=== PATIENT | male | born 1950 | race Caucasian/White ===

== ENCOUNTER → 2016-11-16 | Outpatient (CLI) | payer OTHER, BC ==
[~2016-11-16] MED LIST: ACET-1175 PO; ASPI81TA21 PO; BENZ0.5T9 PO; CALCTAB7 PO; CGN5 PO; CLOTLOT2 TOP; CLOZ100T18 PO; CYAN10005 PO; DIVA1TAB86 PO; DIVA250T4 PO; FINA5TAB4 PO; FNTTP25 EXT; HYDR-3983 PO; MAGNSUS5 PO; METHPOW7 PO; MOME1AER4 INH; MOME1AER5 INH; MOML PO; MRLP17X PO; OXGN; POLY335040 PO; RANI1TAB75 PO; RANI75TA7 PO; TPRSR/50 PO; VLTG EXT; [UNRECOGNIZED DRUG - CODE] PO
[2016-11-16 17:51] LABS: HEMATOCRIT 30.4 % (42-52); MEAN CELL VOLUME 92.1 fL (80-100); MEAN CORPUSCULAR HEMOGLOBIN 29.1 pg (25-34); MEAN CORPUSCULAR HGB CONC 31.6 g/dl (32-36); MEAN PLATELET VOLUME 10.2 fL (7.4-10.4); PLATELET COUNT 200 K/uL (130-400); WHITE BLOOD COUNT 8.34 K/uL (4.8-10.8)
[2016-11-16 18:11] LABS: BLOOD UREA NITROGEN 27 mg/dl (7-18); BUN/CREATININE RATIO 24.5 (10-20); CALCIUM 9.4 mg/dl (8.5-10.1); CARBON DIOXIDE 24 mmol/L (21-32); CHLORIDE 100 mmol/L (98-107); GLUCOSE 97 mg/dl (70-99); POTASSIUM 4.5 mmol/L (3.5-5.1); SODIUM 134 mmol/L (136-145)
[2016-11-16 18:16] LABS: FERRITIN 67.7 ng/ml (8.0-388.0); PHOSPHORUS 2.9 mg/dl (2.5-4.9); TOTAL IRON BINDING CAPACITY 327 mcg/dl (250-450)
== END | disposition home or self-care (01) ==
LOC: C.LABBFT 12:17
PROVIDERS: ATTEND Internal Medicine Nephrology
DX: G40.909 Epilepsy, unspecified, not intractable, without status epilepticus (principal); E87.1 Hypo-osmolality and hyponatremia; D64.9 Anemia, unspecified; N17.9 Acute kidney failure, unspecified

== ENCOUNTER → 2016-11-18 | Outpatient (CLI) | payer OTHER, BC ==
[2016-11-19 12:53] LABS: URINE APPEARANCE CLEAR (CLEAR); URINE BILIRUBIN NEG (NEG); URINE COLOR YELLOW; URINE NITRITE NEG (NEG); URINE SPECIFIC GRAVITY 1.017 (1.000-1.030); UROBILINOGEN NEG (NEG)
[2016-11-19 13:06] LABS: MANUAL MICROSCOPIC REQUIRED? NO; REVIEW REQ? NO
== END | disposition home or self-care (01) ==
LOC: C.LABSPEC 12:17
PROVIDERS: ATTEND Internal Medicine Nephrology
DX: D64.9 Anemia, unspecified (principal); N17.9 Acute kidney failure, unspecified; E87.1 Hypo-osmolality and hyponatremia

== ENCOUNTER → 2016-12-28 | Outpatient (CLI) | payer OTHER, BC ==
--- NOTE | 2016-12-28 17:18 | DIAGNOSTIC IMAGING REPORT ---
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 The appearance appears similar to the prior study. No additional femoral abnormalities are evident. IMPRESSION: Severe deformity left hip characterized by femoral head flattening, severe arthritis, and a protrusio deformity. 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 The findings remain stable Electronically signed by: Drew Marie M.D. 12/28/2016 5:16 PM Dictated Date/Time: 12/28/2016 5:14 PM
--- NOTE | 2016-12-28 17:30 | DIAGNOSTIC IMAGING REPORT ---
AP PELVIS AND BILATERAL HIPS 5 VIEWS CLINICAL HISTORY: Bilateral hip pain COMPARISON STUDY: 02/04/2016 FINDINGS: There is advanced deformity of both hips. 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 There is superior lateral subluxation the right hip. Both femoral heads are markedly deformed and flattened. There is extensive bony overgrowth. The findings remain similar to the preceding study. The findings may be secondary to either prior avascular necrosis, or prior hip dysplasia with secondary arthritic change. No acute fractures are evident. IMPRESSION: No significant change from the prior study. No acute fractures. Advanced degenerative changes involving both hips with marked femoral head flattening, advanced protrusio deformities, and bony overgrowth. Electronically signed by: Drew Marie M.D. 12/28/2016 5:28 PM Dictated Date/Time: 12/28/2016 5:26 PM
== END | disposition home or self-care (01) ==
LOC: C.RAD1850 16:45
PROVIDERS: ATTEND Nurse Practitioner
DX: M25.559 Pain in unspecified hip (principal); M87.00 Idiopathic aseptic necrosis of unspecified bone

== ENCOUNTER 2017-01-12 08:44 | Emergency (ER) | payer OTHER, BC ==
[~2017-01-12] VITALS: Ht 174 cm; Wt 75.8 kg
[~2017-01-12 08:44] MED LIST changes: -CGN5 PO; -FNTTP25 EXT; -MOME1AER5 INH; -MOML PO; -MRLP17X PO; -RANI1TAB75 PO; -VLTG EXT
[2017-01-12 08:52] VITALS: TEMP 36.7; Ht 174 cm; Wt 75.8 kg
[2017-01-12] MEDS ORDERED: SODIUM CHLORIDE 0.9% 1000ML 500 ML IV STA (09:00)
[2017-01-12 09:27] VITALS: O2SAT 93
[2017-01-12] MEDS ORDERED: RANI1TAB75 PO (09:46)
[2017-01-12] MEDS ORDERED: MOME1AER5 INH (09:48)
[2017-01-12] MEDS ORDERED: CGN5 PO (09:49)
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
[2017-01-12] MEDS ORDERED: MOML PO (09:51)
[2017-01-12 09:53] LABS: BASO % 0.2 %; BASO ABS # 0.02 K/uL (0-0.2); COMPLETE YES; EOS % 2.1 %; HEMATOCRIT 34.6 % (42-52); IG% 1.3 %; LYMPH ABS # 0.91 K/uL (1.2-3.4); MEAN CELL VOLUME 88.7 fL (80-100); MEAN CORPUSCULAR HEMOGLOBIN 28.7 pg (25-34); MEAN CORPUSCULAR HGB CONC 32.4 g/dl (32-36); MEAN PLATELET VOLUME 9.4 fL (7.4-10.4); MONO % 11.6 %; NEUT % 73.8 %; PLATELET COUNT 237 K/uL (130-400); WHITE BLOOD COUNT 8.25 K/uL (4.8-10.8)
[2017-01-12] MEDS ORDERED: VLTG EXT (09:53)
[2017-01-12] MEDS ORDERED: MRLP17X PO (09:54)
[2017-01-12] MEDS ORDERED: FNTTP25 EXT (09:56)
[2017-01-12 10:10] LABS: ALT/SGPT 12 U/L (12-78); BLOOD UREA NITROGEN 11 mg/dl (7-18); CALCIUM 9.4 mg/dl (8.5-10.1); CARBON DIOXIDE 30 mmol/L (21-32); CHLORIDE 94 mmol/L (98-107); CREATININE 0.82 mg/dl (0.60-1.40); GLUCOSE 102 mg/dl (70-99); MAGNESIUM 1.8 mg/dl (1.8-2.4); POTASSIUM 4.4 mmol/L (3.5-5.1); SODIUM 131 mmol/L (136-145)
--- NOTE | 2017-01-12 10:11 | DIAGNOSTIC IMAGING REPORT ---
CT SCAN OF THE BRAIN WITHOUT IV CONTRAST CLINICAL HISTORY: Weakness. Change in mental status. COMPARISON STUDY: CT of the brain dated 12/05/15. TECHNIQUE: Unenhanced axial CT scan of the brain is performed from the vertex to the skull base. CT DOSE: 1375.95 mGy.cm FINDINGS: Brain parenchyma: There are age-related involutional changes noting mild subcortical and periventricular microangiopathic change. There is no hemorrhage, mass effect, or evidence of acute territorial ischemia by CT criteria. [place]aza-white matter is preserved. No extra-axial fluid collection is seen. Ventricles, sulci, cisterns: Prominent secondary to involutional change. Intracranial vasculature: There is atherosclerotic calcification of the cavernous carotid and vertebral arteries. Calvarium: The calvarium appears intact. Postoperative change is noted anterior to the mandible. Sinuses and mastoids: The visualized paranasal sinuses are clear. There is a trace left mastoid effusion. The right mastoid air cells are well pneumatized. Orbits: The bony orbits are grossly intact. There are bilateral ocular lens implants. IMPRESSION: There is no hemorrhage, mass effect, or evidence of acute territorial ischemia by CT criteria. Electronically signed by: Faustino Smallwood M.D. 01/12/2017 10:10 AM Dictated Date/Time: 01/12/2017 10:07 AM
[2017-01-12 10:21] LABS: ALB/GLOB RATIO 0.7 (0.9-2); ALKALINE PHOSPHATASE 121 U/L (45-117); AST/SGOT 13 U/L (15-37)
[2017-01-12 11:04] LABS: INFLUENZA A PCR Neg for Influ A (NEG); INFLUENZA B PCR Neg for Influ B (NEG)
[2017-01-12 11:27] LABS: MANUAL MICROSCOPIC REQUIRED? NO; REVIEW REQ? NO; URINE APPEARANCE CLEAR (CLEAR); URINE BILIRUBIN NEG (NEG); URINE COLOR YELLOW; URINE NITRITE NEG (NEG); URINE SPECIFIC GRAVITY 1.008 (1.000-1.030); UROBILINOGEN NEG (NEG)
[2017-01-12 12:37] VITALS: BP 138/78; PULSE 78; O2SAT 98
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
== END 2017-01-12 12:39 | disposition home or self-care (01) ==
LOC: EDBD 08:44 → C.EDB 08:45
DX: R41.0 Disorientation, unspecified (principal); T40.4X5A Adverse effect of other synthetic narcotics, initial encounter; X58.XXXA Exposure to other specified factors, initial encounter; J45.909 Unspecified asthma, uncomplicated; E11.9 Type 2 diabetes mellitus without complications; I51.9 Heart disease, unspecified; E87.5 Hyperkalemia; E72.20 Disorder of urea cycle metabolism, unspecified; J43.9 Emphysema, unspecified; F20.9 Schizophrenia, unspecified; Z87.891 Personal history of nicotine dependence; Z79.82 Long term (current) use of aspirin; Z79.899 Other long term (current) drug therapy

== ENCOUNTER → 2017-03-25 | Outpatient (CLI) | payer OTHER, BC ==
[~2017-03-25] MED LIST changes: +BENZ0.5T28 PO; -BENZ0.5T9 PO; -CALCTAB7 PO; -MAGNSUS5 PO; -METHPOW7 PO; -MOME1AER4 INH; +MOME1AER5 INH; +MOML PO; +MRLP17X PO; -POLY335040 PO; +RANI1TAB75 PO; -RANI75TA7 PO; +VLTG EXT; -[UNRECOGNIZED DRUG - CODE] PO
[2017-03-25 11:57] LABS: BASO % 0.4 %; BASO ABS # 0.04 K/uL (0-0.2); COMPLETE YES; EOS % 1.4 %; HEMATOCRIT 31.3 % (42-52); IG% 1.3 %; LYMPH % 12.5 %; LYMPH ABS # 1.25 K/uL (1.2-3.4); MEAN CELL VOLUME 89.9 fL (80-100); MEAN CORPUSCULAR HEMOGLOBIN 28.7 pg (25-34); MEAN CORPUSCULAR HGB CONC 31.9 g/dl (32-36); MEAN PLATELET VOLUME 9.3 fL (7.4-10.4); NEUT % 74.4 %; PLATELET COUNT 272 K/uL (130-400); RED BLOOD COUNT 3.48 M/uL (4.7-6.1); WHITE BLOOD COUNT 9.98 K/uL (4.8-10.8)
[2017-03-25 12:10] LABS: CALCIUM 8.6 mg/dl (8.5-10.1)
[2017-03-25 12:12] LABS: ALT/SGPT 12 U/L (12-78); AST/SGOT 10 U/L (15-37); BLOOD UREA NITROGEN 23 mg/dl (7-18); BUN/CREATININE RATIO 28.3 (10-20); CARBON DIOXIDE 31 mmol/L (21-32); CHLORIDE 98 mmol/L (98-107); CREATININE 0.82 mg/dl (0.60-1.40); GLUCOSE 74 mg/dl (70-99); POTASSIUM 4.6 mmol/L (3.5-5.1); SODIUM 133 mmol/L (136-145)
[2017-03-25 12:22] LABS: ALB/GLOB RATIO 0.6 (0.9-2); ALKALINE PHOSPHATASE 86 U/L (45-117); PROSTATE SPECIFIC ANTIGEN 0.368 ng/ml (0.000-4.000)
--- NOTE | 2017-04-01 07:22 | CODING QUERY MEDICAL NECESSITY ---
CQSUPPORTING DIAGNOSIS NEEDED A supporting diagnosis is required for the test/procedure performed on this patient in order for us to be reimbursed by the patient's insurance. Please provide a supporting diagnosis for the following test/procedure listed below next to the test name along with your signature. *If there is no additional diagnosis for this patient that would support the following test/procedure please document that below next to the test/procedure. Test(s)/Procedure(s) that require a supporting diagnosis: DOS 03/25/17 VITAMIN D Provider Signature: Date: Thank you Jayde Cheung [employer] Once completed, please kindly fax back to [phone] For questions please call [phone]
== END | disposition home or self-care (01) ==
LOC: C.LABBFT 10:28
PROVIDERS: ATTEND Internal Medicine
DX: I10 Essential (primary) hypertension (principal); N40.0 Benign prostatic hyperplasia without lower urinary tract symptoms; R53.1 Weakness; G40.909 Epilepsy, unspecified, not intractable, without status epilepticus; E07.9 Disorder of thyroid, unspecified; E55.9 Vitamin D deficiency, unspecified

== ENCOUNTER → 2017-03-29 | Outpatient (CLI) | payer OTHER, BC ==
[2017-03-30 14:17] LABS: URINE APPEARANCE CLOUDY (CLEAR); URINE BILIRUBIN NEG (NEG); URINE COLOR YELLOW; URINE EPITHELIAL CELL AUTO >30 /lpf (0-5); URINE NITRITE NEG (NEG); URINE SPECIFIC GRAVITY 1.021 (1.000-1.030); UROBILINOGEN NEG (NEG); ZZUR CULT IF INDIC CLEAN CATCH YES
[2017-03-30 14:26] LABS: MANUAL MICROSCOPIC REQUIRED? NO; REVIEW REQ? NO
== END | disposition home or self-care (01) ==
LOC: C.LABSPEC 12:36
PROVIDERS: ATTEND Internal Medicine
DX: R30.0 Dysuria (principal)

== ENCOUNTER → 2017-04-05 | Outpatient (CLI) | payer OTHER, BC | END | disposition home or self-care (01) | LOC: C.LABBFT 11:08 | PROVIDERS: ATTEND Internal Medicine | DX: Z51.81 Encounter for therapeutic drug level monitoring (principal); Z79.899 Other long term (current) drug therapy ==

== ENCOUNTER → 2017-05-24 | Outpatient (CLI) | payer OTHER, BC ==
[~2017-05-24] MED LIST changes: -BENZ0.5T28 PO; +CGN5 PO
[2017-05-25 13:11] LABS: URINE APPEARANCE CLOUDY (CLEAR); URINE BILIRUBIN NEG (NEG); URINE COLOR YELLOW; URINE NITRITE NEG (NEG); URINE SPECIFIC GRAVITY 1.018 (1.000-1.030); UROBILINOGEN NEG (NEG); ZZUR CULT IF INDIC CLEAN CATCH YES
[2017-05-25 13:19] LABS: MANUAL MICROSCOPIC REQUIRED? NO; REVIEW REQ? NO
== END | disposition home or self-care (01) ==
LOC: C.LABSPEC 12:21
PROVIDERS: ATTEND Physician Assistant Medical
DX: R30.0 Dysuria (principal)

== ENCOUNTER → 2017-06-23 | Outpatient (CLI) | payer OTHER, BC | END | disposition home or self-care (01) | LOC: C.LABBFT 13:58 | PROVIDERS: ATTEND Nurse Practitioner Family | DX: R30.0 Dysuria (principal) ==

== ENCOUNTER → 2017-08-10 | Outpatient (CLI) | payer OTHER, BC ==
[2017-08-10 12:25] LABS: ALT/SGPT 11 U/L (12-78); AST/SGOT 11 U/L (15-37); BLOOD UREA NITROGEN 32 mg/dl (7-18); BUN/CREATININE RATIO 36.5 (10-20); CALCIUM 9.1 mg/dl (8.5-10.1); CARBON DIOXIDE 31 mmol/L (21-32); CHLORIDE 103 mmol/L (98-107); CREATININE 0.88 mg/dl (0.60-1.40); GLUCOSE 80 mg/dl (70-99); POTASSIUM 4.8 mmol/L (3.5-5.1); SODIUM 135 mmol/L (136-145)
[2017-08-10 12:27] LABS: ALB/GLOB RATIO 0.8 (0.9-2); ALKALINE PHOSPHATASE 83 U/L (45-117)
== END | disposition home or self-care (01) ==
LOC: C.LABBFT 10:25
PROVIDERS: ATTEND Physician Assistant
DX: R77.1 Abnormality of globulin (principal); E55.9 Vitamin D deficiency, unspecified

== ENCOUNTER → 2017-10-14 | Outpatient (CLI) | payer OTHER, BC ==
[~2017-10-14] MED LIST changes: +BENZ0.5T28 PO; -CGN5 PO
[2017-10-14 12:38] LABS: MANUAL MICROSCOPIC REQUIRED? NO; REVIEW REQ? NO; URINE APPEARANCE CLEAR (CLEAR); URINE BILIRUBIN NEG (NEG); URINE COLOR YELLOW; URINE NITRITE NEG (NEG); URINE SPECIFIC GRAVITY 1.019 (1.000-1.030); UROBILINOGEN NEG (NEG); ZZUR CULT IF INDIC CLEAN CATCH NO
== END | disposition home or self-care (01) ==
LOC: C.LABBFT 08:41
PROVIDERS: ATTEND Internal Medicine
DX: R35.0 Frequency of micturition (principal)

== ENCOUNTER → 2017-11-23 | Outpatient (CLI) | payer OTHER, BC | END | disposition home or self-care (01) | LOC: C.LABBFT 10:05 | PROVIDERS: ATTEND Psychiatry & Neurology Neurology | DX: R56.9 Unspecified convulsions (principal) ==

== ENCOUNTER → 2017-12-28 | Outpatient (CLI) | payer OTHER, BC ==
[2017-12-28 17:37] LABS: BASO % 0.4 %; BASO ABS # 0.03 K/uL (0-0.2); EOS % 1.4 %; EOS ABS # 0.12 K/uL (0-0.5); HEMATOCRIT 36.1 % (42-52); HEMOGLOBIN 11.5 g/dL (14.0-18.0); IG# 0.13 K/uL (0.00-0.02); LYMPH % 18.2 %; LYMPH ABS # 1.56 K/uL (1.2-3.4); MEAN CELL VOLUME 92.8 fL (80-100); MEAN CORPUSCULAR HEMOGLOBIN 29.6 pg (25-34); MEAN CORPUSCULAR HGB CONC 31.9 g/dl (32-36); MEAN PLATELET VOLUME 10.2 fL (7.4-10.4); MONO % 10.5 %; NEUT ABS # 5.81 K/uL (1.4-6.5); PLATELET COUNT 180 K/uL (130-400); RED CELL DISTRIBUTION WIDTH CV 13.3 % (11.5-14.5); RED CELL DISTRIBUTION WIDTH SD 45.2 fL (36.4-46.3); WHITE BLOOD COUNT 8.55 K/uL (4.8-10.8)
[2017-12-28 17:46] LABS: BLOOD UREA NITROGEN 24 mg/dl (7-18); CARBON DIOXIDE 31 mmol/L (21-32); CREATININE 0.93 mg/dl (0.60-1.40); GLUCOSE 74 mg/dl (70-99); POTASSIUM 4.9 mmol/L (3.5-5.1); SODIUM 132 mmol/L (136-145)
== END | disposition home or self-care (01) ==
LOC: C.LABBFT 11:44
PROVIDERS: ATTEND Nurse Practitioner
DX: R41.82 Altered mental status, unspecified (principal)

== ENCOUNTER → 2017-12-28 | Outpatient (CLI) | payer OTHER, BC ==
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
== END | disposition home or self-care (01) ==
LOC: C.RAD1850 15:04
PROVIDERS: ATTEND Nurse Practitioner
DX: R05 Cough (principal); R41.82 Altered mental status, unspecified

== ENCOUNTER → 2017-12-29 | Outpatient (CLI) | payer OTHER, BC | END | disposition home or self-care (01) | LOC: C.LABSPEC 18:02 | PROVIDERS: ATTEND Nurse Practitioner | DX: R41.82 Altered mental status, unspecified (principal) ==

== ENCOUNTER → 2018-03-22 | Outpatient (CLI) | payer OTHER, BC ==
[~2018-03-22] MED LIST changes: +ASPI-319 PO; -ASPI81TA21 PO
[2018-03-22 16:30] LABS: BASO % 0.1 %; BASO ABS # 0.02 K/uL (0-0.2); EOS % 1.1 %; EOS ABS # 0.15 K/uL (0-0.5); HEMATOCRIT 32.3 % (42-52); HEMOGLOBIN 10.3 g/dL (14.0-18.0); IG# 0.14 K/uL (0.00-0.02); LYMPH % 9.7 %; LYMPH ABS # 1.37 K/uL (1.2-3.4); MEAN CELL VOLUME 90.2 fL (80-100); MEAN CORPUSCULAR HEMOGLOBIN 28.8 pg (25-34); MEAN CORPUSCULAR HGB CONC 31.9 g/dl (32-36); MONO % 9.5 %; MONO ABS # 1.34 K/uL (0.11-0.59); NEUT % 78.6 %; NEUT ABS # 11.13 K/uL (1.4-6.5); PLATELET COUNT 202 K/uL (130-400); RED CELL DISTRIBUTION WIDTH CV 13.1 % (11.5-14.5); RED CELL DISTRIBUTION WIDTH SD 43.2 fL (36.4-46.3); WHITE BLOOD COUNT 14.15 K/uL (4.8-10.8)
[2018-03-22 16:44] LABS: BLOOD UREA NITROGEN 25 mg/dl (7-18); CALCIUM 8.7 mg/dl (8.5-10.1); CARBON DIOXIDE 29 mmol/L (21-32); CREATININE 0.95 mg/dl (0.60-1.40); GLUCOSE 78 mg/dl (70-99); POTASSIUM 4.7 mmol/L (3.5-5.1); SODIUM 131 mmol/L (136-145)
== END | disposition home or self-care (01) ==
LOC: C.LABBFT 11:25
PROVIDERS: ATTEND Nurse Practitioner
DX: D72.829 Elevated white blood cell count, unspecified (principal)

== ENCOUNTER 2018-10-26 16:26 | Inpatient (IN) ==
--- NOTE | 2018-10-26 18:47 | XRay Report ---
XR chest 1V portable CLINICAL HISTORY: 68 years-old Male presenting with weakness. TECHNIQUE: Portable upright AP view of the chest was obtained. COMPARISON: 10/13/2018. FINDINGS: Cardiomediastinal silhouette within normal limits allowing for chronic architectural distortion of th e lungs. Elevation of the right hemidiaphragm with upward retraction of the bilateral mayra, right gre ater than left. Chronic dense reticular opacities in the apices, right greater than left. Severe the right apex may also indicate underlying bleb/bulla. No superimposed opacity. No convincing evidence o f pleural effusion or pneumothorax. Degenerative changes of the thoracic spine. Significant gaseous d istention of colon below the right hemidiaphragm. IMPRESSION: 1. Chronic lung disease. No superimposed infiltrate to suggest pneumonia. 2. Gaseous distended colon. Correlate clinically. Electronically signed by: Darien Castillo M.D. 10/26/2018 6:46 PM
--- NOTE | 2018-10-26 18:47 | XRay Report ---
XR pelvis 1-2V routine CLINICAL HISTORY: fall. Pelvic pain. COMPARISON STUDY: Pelvis 12/28/2016. FINDINGS: No definite acute fractures within the pelvis or hips. Large amount well-formed stool seen throughout the colon. The sacrum appears intact. Chronic deformity of the bilateral hips with acetabu lar overgrowth and significant bilateral femoral head collapse/erosion. This suggests long-standing a vascular necrosis. Overall, this is not significantly change. Bilateral protrusio deformities are aga in noted. IMPRESSION: 1. No acute fractures within the pelvis or hips. 2. Chronic deformity within the bilateral hips remain unchanged. Electronically signed by: Steven Busch M.D. 10/26/2018 6:46 PM
--- NOTE | 2018-10-26 18:49 | XRay Report ---
XR shoulder RT 1V CLINICAL HISTORY: Fall. Right shoulder pain. COMPARISON STUDY: Right shoulder 10/26/2018. FINDINGS: Single AP view the right shoulder shows no acute fracture or dislocation. The distal clavic le is intact. Chronic changes again noted within the visualized lungs. IMPRESSION: Status post reduction of the right shoulder dislocation. Alignment appears anatomic. No definite acute fractures. Electronically signed by: Steven Busch M.D. 10/26/2018 6:48 PM
[2018-10-26 19:07] LABS: Appearance Urine Clear (Clear); Bilirubin Urine Negative (Negative); Color Urine Yellow; Glucose Urine UA Negative (Negative); Ketones Urine Negative (Negative); Leukocyte Esterase Urine Negative (Negative); Nitrite Urine Negative (Negative); Protein Urine Negative (Negative); Specific Gravity Urine 1.016 (1.000-1.030); Urobilinogen Urine Negative (Negative); pH Urine 7.5 (4.5-7.5)
--- NOTE | 2018-10-26 19:09 | Emergency Department Note ---
Entered by Emily Loo acting as a scribe for History of Present Illness General Chief complaint: Lethargic Stated complaint: LETHARGIC Time Seen by Provider: 10/26/18 17:57 Source: other (certified medical asst) Mode of arrival: wheelchair Limitations: altered mental status History of Present Illness Provider complaint: Lethargy Onset (ago): week(s) 1 Location: head Radiation: non-radiation Pain Consistency: + other (worsening) Quality: + other (lethargy) Relieved By: + none Associated symptoms: + weakness (difficulty transferring) and + other ( Additional symptoms: incoherency, head bleeding, right shoulder dislocation, bilateral shoulder pain, right hand pain, right leg pain. Denies: loss of consciousness, rectal bleeding, edema to the feet); no fever/chills The patient is a 68 year old male who presents to the Emergency Room with complaints of worsening lethargy starting 1 week ago. Per certified medical asst, the patient is normally able to form full sentences and transfer himself independently; however, over the past week the patient has been incoherent and had difficulty transferring. The patient has reportedly fallen multiple times secondary to his difficulty transferring and lack of cooperation while doing so. The certified medical asst notes that one of the patient's falls involved hitting his head and bleeding but no loss of consciousness. He states that the patient also fell twice 3 days ago, during which he likely dislocated his right shoulder. The patient currently complains of pain in his bilateral shoulders, right hand, and right leg, and the patient's certified medical asst denies any fevers, rectal bleeding, and edema to the feet compared to baseline. The certified medical asst reports that the patient was in in the ED this morning for his symptoms. Dr. Orantes reportedly performed a shoulder x-ray and wanted to test the patient for a UTI but was unable to obtain a urine sample. Per certified medical asst, the patient is not on blood thinners and was treated for pneumonia 1 month ago. HPI limited secondary to altered mental status. Home Medications Home Medications Medication Instructions Recorded Confirmed Type acetaminophen 500 mg PO Q6H PRN 08/30/18 10/26/18 History aspirin 81 mg PO DAILY 08/30/18 10/26/18 History benztropine 0.5 mg PO DAILY 08/30/18 10/26/18 History cholecalciferol (vitamin D3) 2,000 unit PO DAILY 08/30/18 10/26/18 History [Vitamin D3] clozapine 300 mg PO HS 08/30/18 10/26/18 History cyanocobalamin-cobamamide [B12] 1,000 mg SUBLINGUAL 2XWK 08/30/18 10/26/18 History divalproex [Depakote] 125 mg PO BID 08/30/18 10/26/18 History divalproex [Depakote] 250 mg PO BID 08/30/18 10/26/18 History finasteride 5 mg PO DAILY 08/30/18 10/26/18 History hydrocodone-acetaminophen 1 tab PO TID 08/30/18 10/26/18 History magnesium hydroxide [Milk of 2 tbsp PO HS PRN 08/30/18 10/26/18 History Magnesia] metoprolol succinate 50 mg PO DAILY 08/30/18 10/26/18 History mometasone [Asmanex Twisthaler] 1 inh INHALATION QPM 08/30/18 10/26/18 History phenazopyridine 200 mg PO TID PRN 08/30/18 10/26/18 History polyethylene glycol 1450(bulk) 17 g MISCELLANEOUS DIRECTED 08/30/18 10/26/18 History [Polyglycol Shaggy Base] ranitidine HCl [Zantac 75] 75 mg PO BID PRN 08/30/18 10/26/18 History tamsulosin 0.4 mg PO DAILY 08/30/18 10/26/18 History ipratropium-albuterol 3 ml NEB Q4H PRN #30 ml 09/08/18 10/26/18 Rx Allergies Allergy/AdvReac Type Severity Reaction Status Date / Time diltiazem Allergy Unknown rash and Verified 08/30/18 12:39 edema Past Med/Surg History Medical History Aspiration pneumonia Anemia (Acute) Acute hyponatremia (Acute) DVT prophylaxis Sepsis Hypertension GERD (gastroesophageal reflux disease) BPH (benign prostatic hyperplasia) Seizure disorder Acute respiratory failure with hypoxia Pneumonia (Acute) Abnormal chest CT (Acute) Anemia (Acute) Diabetes mellitus (Chronic 01/08/13) Hyperammonemia Hyperkalemia, diminished renal excretion Hyponatremia (Acute) Schizophrenia (Chronic 01/08/13) Social History marital status: Current Living Situation: Personal Care Facility Current Living Situation Comment: [email or web address] current occupational status: retired Other Information That Helps Us Care for You: No Feels Safe at Home: Yes Safety Concerns: Feels Safe At This Time Smoking Status: Former smoker Do You Dip or Chew Tobacco: No Second Hand Exposure: No Tobacco Cessation Education Requested by Patient: No Hx Alcohol Use: No Hx Substance Use: No Beliefs That Will Affect Care: None Communication Ability: Unable Review of Systems Other (Limited secondary to altered mental status) Physical Exam Vital Signs Vital Signs - 24 hr 10/26/18 17:10 10/26/18 19:05 10/26/18 19:06 Temperature 36.4 C L Temperature Source Oral Sepsis Recent Fever Within 48 Hours No Sepsis New/Unexplained Change in Mental Status No Sepsis Action Taken by Nursing No Action Required Pulse Rate 65 Pulse Rate [Left Finger] 83 Pulse Rhythm Regular Pulse Rhythm [Left Finger] Pulse Strength Normal Pulse Strength [Left Finger] Respiratory Rate 22 18 Respiratory Effort / Characteristics Labored Respiratory Depth Normal Respiratory Pattern Regular Blood Pressure 160/74 H Blood Pressure [Left Arm] 148/66 H Blood Pressure [Right Arm] Blood Pressure Mean 102 Blood Pressure Mean [Left Arm] 93 Blood Pressure Mean [Right Arm] Blood Pressure Position Sitting Blood Pressure Position [Left Arm] Blood Pressure Position [Right Arm] Pulse Oximetry 95 96 95 Oxygen Delivery Method Room Air Room Air Room Air 10/26/18 20:00 10/26/18 21:01 10/26/18 22:09 Temperature Temperature Source Sepsis Recent Fever Within 48 Hours Sepsis New/Unexplained Change in Mental Status Sepsis Action Taken by Nursing Pulse Rate Pulse Rate [Left Finger] 85 86 90 Pulse Rhythm Pulse Rhythm [Left Finger] Pulse Strength Pulse Strength [Left Finger] Respiratory Rate 16 16 18 Respiratory Effort / Characteristics Respiratory Depth Respiratory Pattern Blood Pressure Blood Pressure [Left Arm] 149/60 H 161/82 H 150/86 H Blood Pressure [Right Arm] Blood Pressure Mean Blood Pressure Mean [Left Arm] 89 108 107 Blood Pressure Mean [Right Arm] Blood Pressure Position Blood Pressure Position [Left Arm] Blood Pressure Position [Right Arm] Pulse Oximetry 91 94 95 Oxygen Delivery Method Room Air Room Air Room Air 10/26/18 22:42 10/26/18 23:00 10/27/18 00:01 Temperature Temperature Source Sepsis Recent Fever Within 48 Hours Sepsis New/Unexplained Change in Mental Status Sepsis Action Taken by Nursing Pulse Rate 89 87 Pulse Rate [Left Finger] 91 H Pulse Rhythm Pulse Rhythm [Left Finger] Pulse Strength Pulse Strength [Left Finger] Respiratory Rate 18 18 18 Respiratory Effort / Characteristics Respiratory Depth Respiratory Pattern Blood Pressure 136/64 130/99 Blood Pressure [Left Arm] 133/73 Blood Pressure [Right Arm] Blood Pressure Mean 88 109 Blood Pressure Mean [Left Arm] 93 Blood Pressure Mean [Right Arm] Blood Pressure Position Blood Pressure Position [Left Arm] Blood Pressure Position [Right Arm] Pulse Oximetry 93 92 Oxygen Delivery Method Room Air 10/27/18 00:31 10/27/18 00:47 10/27/18 01:30 Temperature 36.3 C L Temperature Source Oral Sepsis Recent Fever Within 48 Hours Sepsis New/Unexplained Change in Mental Status Sepsis Action Taken by Nursing Pulse Rate 102 H 84 Pulse Rate [Left Finger] 89 Pulse Rhythm Pulse Rhythm [Left Finger] Regular Pulse Strength Pulse Strength [Left Finger] Normal Respiratory Rate 20 16 Respiratory Effort / Characteristics Non-Labored Spontaneous Respiratory Depth Normal Respiratory Pattern Regular Blood Pressure 140/90 Blood Pressure [Left Arm] 161/53 H Blood Pressure [Right Arm] Blood Pressure Mean 106 Blood Pressure Mean [Left Arm] 89 Blood Pressure Mean [Right Arm] Blood Pressure Position Blood Pressure Position [Left Arm] Lying Blood Pressure Position [Right Arm] Pulse Oximetry 92 94 Oxygen Delivery Method Room Air 10/27/18 04:24 10/27/18 07:59 10/27/18 08:00 Temperature 36.4 C L 36.7 C Temperature Source Oral Oral Sepsis Recent Fever Within 48 Hours Sepsis New/Unexplained Change in Mental Status Sepsis Action Taken by Nursing Pulse Rate Pulse Rate [Left Finger] 88 86 Pulse Rhythm Pulse Rhythm [Left Finger] Pulse Strength Pulse Strength [Left Finger] Respiratory Rate 20 19 Respiratory Effort / Characteristics Non-Labored Respiratory Depth Normal Respiratory Pattern Blood Pressure Blood Pressure [Left Arm] 151/73 H 168/69 H Blood Pressure [Right Arm] Blood Pressure Mean Blood Pressure Mean [Left Arm] 99 102 Blood Pressure Mean [Right Arm] Blood Pressure Position Blood Pressure Position [Left Arm] Lying Sitting Blood Pressure Position [Right Arm] Pulse Oximetry 95 94 Oxygen Delivery Method Room Air Room Air Room Air 10/27/18 10:29 Temperature 36.3 C L Temperature Source Oral Sepsis Recent Fever Within 48 Hours Sepsis New/Unexplained Change in Mental Status Sepsis Action Taken by Nursing Pulse Rate Pulse Rate [Left Finger] 81 Pulse Rhythm Pulse Rhythm [Left Finger] Pulse Strength Pulse Strength [Left Finger] Respiratory Rate 18 Respiratory Effort / Characteristics Respiratory Depth Respiratory Pattern Blood Pressure Blood Pressure [Left Arm] Blood Pressure [Right Arm] 148/78 H Blood Pressure Mean Blood Pressure Mean [Left Arm] Blood Pressure Mean [Right Arm] 101 Blood Pressure Position Blood Pressure Position [Left Arm] Blood Pressure Position [Right Arm] Sitting Pulse Oximetry 94 Oxygen Delivery Method Room Air GENERAL: Patient is awake to verbal commands. He follows commands slowly. EYES: The conjunctivae are clear. The pupils are round and reactive. EARS, NOSE, MOUTH AND THROAT: The nose is without any evidence of any deformity. Mucous membranes are moist tongue is midline NECK: The neck is nontender and supple. RESPIRATORY: Normal respiratory effort is noted there is no evidence of wheezing rhonchi or rales CARDIOVASCULAR: Regular rate and rhythm noted there no murmurs rubs or gallops normal S1 normal S2 GASTROINTESTINAL: The abdomen is soft. Bowel sounds are present in all quadrants. Abdomen is nontender MUSCULOSKELETAL/EXTREMITIES: There is a large hematoma noted over the posterior right shoulder. This tracks down into the right flank. Patient's range of motion right shoulder elicits pain. There is anterior fullness. SKIN: There is no obvious evidence of any rash. Pedal edema was noted bilaterally. NEUROLOGIC: Patient is oriented to person place but not time. He moves all extremities. Strength is symmetric but diminished. Procedures Orthopedic Joint Reduction Joint #1: Time Out Performed: Yes Side: right Joint Reduction Location: shoulder Analgesia: none Shoulder Technique Used (if applicable): traction/counter-traction Technique used: traction/counter-traction Post-reduction neuro exam: intact Post-reduction vascular: intact Post Reduction X-Ray Obtained: Yes Post Reduction X-Ray Results: reduced Splint Applied: No Patient Tolerated Procedure: well Course 1800: At this time the patient was evaluated by the medical student, Josh Damon. The student's findings were discussed with me. We discussed a possible treatment plan and differential diagnoses for the patient. 1815: Past medical records reviewed. The patient was evaluated in room B12B, and a complete history and physical examination were performed. I also performed a right shoulder reduction at this time. 2130: I reviewed the patient's case with Dr. Jauregui - Hospitalist, [facility]. Dr. Perales will evaluate the patient for further management. Consultations Consultation #1: I reviewed the patient's case with Dr. Jauregui - Hospitalist, [facility]. Dr. Perales will evaluate the patient for further management. Time: 21:31 Administered Medications Acetaminophen (Tylenol) 500 mg PO Q6H PRN PRN Reason: Pain Last Admin: 10/27/18 03:42 Dose: 500 mg Hydrocodone Bitart/Acetaminophen ([place] 7.5/325mg) 1 tab PO TID [facility] Stop: 11/10/18 08:59 Last Admin: 10/27/18 14:03 Dose: 1 tab Admin: 10/27/18 08:47 Dose: 1 tab Aspirin (Ecotrin) 81 mg PO DAILY [facility] Stop: 11/26/18 08:59 Last Admin: 10/27/18 07:42 Dose: 81 mg Cyanocobalamin (Vitamin B-12) 1,000 mcg PO MoFr@0900 [facility] Stop: 11/26/18 08:59 Last Admin: 10/27/18 07:43 Dose: 1,000 mcg Divalproex Sodium (Depakote Delay Release) 125 mg PO BID@0800,2100 [facility] Stop: 11/26/18 07:59 Last Admin: 10/27/18 07:44 Dose: 125 mg Divalproex Sodium (Depakote Delay Release) 250 mg PO BID@0800,2100 [facility] Stop: 11/26/18 07:59 Last Admin: 10/27/18 07:42 Dose: 250 mg Sodium Chloride (Nss 1000ml) 1,000 mls @ 80 mls/hr IV .[id number] [facility] Stop: 11/26/18 08:44 Last Admin: 10/27/18 09:11 Dose: 80 mls/hr Levothyroxine Sodium (Synthroid) 50 mcg PO DAILYBB [facility] Stop: 11/26/18 06:29 Last Admin: 10/27/18 07:42 Dose: 50 mcg Metoprolol Succinate (Toprol Xl) 50 mg PO DAILY@0800 [facility] Stop: 11/26/18 07:59 Last Admin: 10/27/18 07:43 Dose: 50 mg Miscellaneous (Order Awaiting Action) 1 ea N/A QS [facility] Stop: 11/26/18 07:59 Last Admin: 10/27/18 15:05 Dose: Not Given Admin: 10/27/18 08:31 Dose: Not Given Ranitidine HCl (Zantac) 75 mg PO BID [facility] Stop: 11/26/18 01:02 Last Admin: 10/27/18 07:43 Dose: 75 mg Admin: 10/27/18 01:50 Dose: 75 mg Vitamin D (Vitamin D3) 2,000 units PO DAILY [facility] Stop: 11/26/18 08:59 Last Admin: 10/27/18 07:43 Dose: 2,000 units Discontinued Medications Benztropine Mesylate (Cogentin) 0.5 mg PO NOW STA Stop: 10/27/18 01:10 Last Admin: 10/27/18 01:52 Dose: 0.5 mg Divalproex Sodium (Depakote Delay Release) 125 mg PO BID [facility] Stop: 10/27/18 03:00 Last Admin: 10/27/18 01:50 Dose: 125 mg Divalproex Sodium (Depakote Delay Release) 250 mg PO BID [facility] Stop: 10/27/18 03:00 Last Admin: 10/27/18 01:54 Dose: 250 mg Finasteride (Proscar) 5 mg PO NOW STA Stop: 10/27/18 01:11 Last Admin: 10/27/18 01:53 Dose: 5 mg Influenza Virus Vaccine (Fluzone High-Dose Pf) 0.5 ml IM .ONCE ONE Stop: 10/27/18 07:16 Last Admin: 10/27/18 10:37 Dose: 0.5 ml Pneumococcal Polyvalent Vaccine (Pneumovax-23) 25 mcg IM .ONCE ONE Stop: 10/27/18 07:16 Last Admin: 10/27/18 08:28 Dose: Not Given Medical Decision Making Differential Diagnosis Differential includes acute coronary syndrome, myocardial infarction, CVA, TIA , anemia, infection, pneumonia, UTI, pyelonephritis, poor nutrition, dehydration , electrolyte disturbance,hypoglycemia. Medical Records Attestation: I reviewed the patient's medical records. Home Medications Current Medication List: was personally reviewed by me Laboratory Data Attestation: I reviewed the patient's lab results. Result diagrams: 10/26/18 19:03 10/27/18 08:52 Lab Results 10/26/18 10/26/18 10/26/18 Range/Units 18:46 19:03 19:03 WBC 10.88 H (4.8-10.8) K/uL RBC 3.14 L (4.7-6.1) M/uL Hgb 8.9 L (14.0-18.0) g/dL Hct 26.9 L (42-52) % MCV 85.7 (80-100) fL MCH 28.3 (25-34) pg MCHC 33.1 (32-36) g/dL RDW Std Deviation 42.4 (36.4-46.3) fL RDW Coeff of [place] 13.5 (11.5-14.5) % Plt Count 175 (130-400) K/uL MPV 8.7 (7.4-10.4) fL Immature Gran % (Auto) 3.1 % Neut % (Auto) 71.0 % Lymph % (Auto) 15.4 % [place] % (Auto) 9.2 % Eos % (Auto) 1.1 % Baso % (Auto) 0.2 % Immature Gran # (Auto) 0.34 H (0.00-0.02) K/uL Neut # (Auto) 7.72 H (1.4-6.5) K/uL Lymph # (Auto) 1.68 (1.2-3.4) K/uL [place] # (Auto) 1.00 H (0.11-0.59) K/uL Eos # (Auto) 0.12 (0-0.5) K/uL Baso # (Auto) 0.02 (0-0.2) K/uL RBC Morphology Unremarkable PT 10.2 (9.0-12.0) Seconds INR 1.0 (0.9-1.1) Sodium (136-145) mmol/L Potassium (3.5-5.1) mmol/L Chloride (98-107) mmol/L Carbon Dioxide (21-32) mmol/L Anion Gap (3-11) BUN (7-18) mg/dl Creatinine (0.6-1.4) mg/dl Est Cr Clr Drug Dosing ml/min Est GFR ( Amer) Est GFR (Non-Af Amer) BUN/Creatinine Ratio (10-20) Glucose (70-99) mg/dl Osmolality (280-300) mOsm/kg Calcium (8.5-10.1) mg/dl Magnesium (1.8-2.4) mg/dl Total Bilirubin (0.1-1) mg/dl AST (15-37) U/L ALT (12-78) U/L Alkaline Phosphatase (45-117) U/L CK-MB (CK-2) (0.5-3.6) ng/ml Troponin I (0-0.045) ng/ml Total Protein (6.4-8.2) gm/dl Albumin (3.4-5.0) gm/dl Globulin (2.5-4.0) gm/dl Albumin/Globulin Ratio (0.9-2) Procalcitonin (0-0.5) ng/ml TSH (0.300-4.500) uIu/ml Urine Color Yellow Urine Appearance Clear (Clear) Urine pH 7.5 (4.5-7.5) Ur Specific [place] 1.016 (1.000-1.030) Urine Protein Negative (Negative) Urine Glucose (UA) Negative (Negative) Urine Ketones Negative (Negative) Urine Blood Negative (Negative) Urine Nitrite Negative (Negative) Urine Bilirubin Negative (Negative) Urine Urobilinogen Negative (Negative) Ur Leukocyte Esterase Negative (Negative) Urine Osmolality (500-800) mOsm/kg Ur Random Sodium mmol/L Valproic Acid (50-100) mcg/ml 10/26/18 10/26/18 10/27/18 Range/Units 19:03 19:03 08:52 WBC (4.8-10.8) K/uL RBC (4.7-6.1) M/uL Hgb (14.0-18.0) g/dL Hct (42-52) % MCV (80-100) fL MCH (25-34) pg MCHC (32-36) g/dL RDW Std Deviation (36.4-46.3) fL RDW Coeff of Nakia (11.5-14.5) % Plt Count (130-400) K/uL MPV (7.4-10.4) fL Immature Gran % (Auto) % Neut % (Auto) % Lymph % (Auto) % [place] % (Auto) % Eos % (Auto) % Baso % (Auto) % Immature Gran # (Auto) (0.00-0.02) K/uL Neut # (Auto) (1.4-6.5) K/uL Lymph # (Auto) (1.2-3.4) K/uL [place] # (Auto) (0.11-0.59) K/uL Eos # (Auto) (0-0.5) K/uL Baso # (Auto) (0-0.2) K/uL RBC Morphology PT (9.0-12.0) Seconds INR (0.9-1.1) Sodium 121 L 122 L (136-145) mmol/L Potassium 5.1 4.5 (3.5-5.1) mmol/L Chloride 87 L 88 L (98-107) mmol/L Carbon Dioxide 26 27 (21-32) mmol/L Anion Gap 9.0 7.0 (3-11) BUN 20 H 14 (7-18) mg/dl Creatinine 0.84 0.78 (0.6-1.4) mg/dl Est Cr Clr Drug Dosing 85.1 98.7 ml/min Est GFR ( Amer) 105.7 109.0 Est GFR (Non-Af Amer) 91.2 94.1 BUN/Creatinine Ratio 23.6 H 17.4 (10-20) Glucose 79 108 H (70-99) mg/dl Osmolality (280-300) mOsm/kg Calcium 9.2 8.7 (8.5-10.1) mg/dl Magnesium 2.2 (1.8-2.4) mg/dl Total Bilirubin 0.5 (0.1-1) mg/dl AST 12 L (15-37) U/L ALT 14 (12-78) U/L Alkaline Phosphatase 88 (45-117) U/L CK-MB (CK-2) 2.5 (0.5-3.6) ng/ml Troponin I < 0.015 (0-0.045) ng/ml Total Protein 7.1 (6.4-8.2) gm/dl Albumin 3.1 L (3.4-5.0) gm/dl Globulin 4.0 (2.5-4.0) gm/dl Albumin/Globulin Ratio 0.8 L (0.9-2) Procalcitonin (0-0.5) ng/ml TSH 7.300 H (0.300-4.500) uIu/ml Urine Color Urine Appearance (Clear) Urine pH (4.5-7.5) Ur Specific [place] (1.000-1.030) Urine Protein (Negative) Urine Glucose (UA) (Negative) Urine Ketones (Negative) Urine Blood (Negative) Urine Nitrite (Negative) Urine Bilirubin (Negative) Urine Urobilinogen (Negative) Ur Leukocyte Esterase (Negative) Urine Osmolality (500-800) mOsm/kg Ur Random Sodium mmol/L Valproic Acid 68 (50-100) mcg/ml 10/27/18 10/27/18 10/27/18 Range/Units 11:46 11:46 12:10 WBC (4.8-10.8) K/uL RBC (4.7-6.1) M/uL Hgb (14.0-18.0) g/dL Hct (42-52) % MCV (80-100) fL MCH (25-34) pg MCHC (32-36) g/dL RDW Std Deviation (36.4-46.3) fL RDW Coeff of Nakia (11.5-14.5) % Plt Count (130-400) K/uL MPV (7.4-10.4) fL Immature Gran % (Auto) % Neut % (Auto) % Lymph % (Auto) % [place] % (Auto) % Eos % (Auto) % Baso % (Auto) % Immature Gran # (Auto) (0.00-0.02) K/uL Neut # (Auto) (1.4-6.5) K/uL Lymph # (Auto) (1.2-3.4) K/uL [place] # (Auto) (0.11-0.59) K/uL Eos # (Auto) (0-0.5) K/uL Baso # (Auto) (0-0.2) K/uL RBC Morphology PT (9.0-12.0) Seconds INR (0.9-1.1) Sodium (136-145) mmol/L Potassium (3.5-5.1) mmol/L Chloride (98-107) mmol/L Carbon Dioxide (21-32) mmol/L Anion Gap (3-11) BUN (7-18) mg/dl Creatinine (0.6-1.4) mg/dl Est Cr Clr Drug Dosing ml/min Est GFR ( Amer) Est GFR (Non-Af Amer) BUN/Creatinine Ratio (10-20) Glucose (70-99) mg/dl Osmolality 256 L (280-300) mOsm/kg Calcium (8.5-10.1) mg/dl Magnesium (1.8-2.4) mg/dl Total Bilirubin (0.1-1) mg/dl AST (15-37) U/L ALT (12-78) U/L Alkaline Phosphatase (45-117) U/L CK-MB (CK-2) (0.5-3.6) ng/ml Troponin I (0-0.045) ng/ml Total Protein (6.4-8.2) gm/dl Albumin (3.4-5.0) gm/dl Globulin (2.5-4.0) gm/dl Albumin/Globulin Ratio (0.9-2) Procalcitonin < 0.05 (0-0.5) ng/ml TSH (0.300-4.500) uIu/ml Urine Color Urine Appearance (Clear) Urine pH (4.5-7.5) Ur Specific [place] (1.000-1.030) Urine Protein (Negative) Urine Glucose (UA) (Negative) Urine Ketones (Negative) Urine Blood (Negative) Urine Nitrite (Negative) Urine Bilirubin (Negative) Urine Urobilinogen (Negative) Ur Leukocyte Esterase (Negative) Urine Osmolality 264 L (500-800) mOsm/kg Ur Random Sodium mmol/L Valproic Acid (50-100) mcg/ml 10/27/18 Range/Units 12:10 WBC (4.8-10.8) K/uL RBC (4.7-6.1) M/uL Hgb (14.0-18.0) g/dL Hct (42-52) % MCV (80-100) fL MCH (25-34) pg MCHC (32-36) g/dL RDW Std Deviation (36.4-46.3) fL RDW Coeff of Nakia (11.5-14.5) % Plt Count (130-400) K/uL MPV (7.4-10.4) fL Immature Gran % (Auto) % Neut % (Auto) % Lymph % (Auto) % [place] % (Auto) % Eos % (Auto) % Baso % (Auto) % Immature Gran # (Auto) (0.00-0.02) K/uL Neut # (Auto) (1.4-6.5) K/uL Lymph # (Auto) (1.2-3.4) K/uL [place] # (Auto) (0.11-0.59) K/uL Eos # (Auto) (0-0.5) K/uL Baso # (Auto) (0-0.2) K/uL RBC Morphology PT (9.0-12.0) Seconds INR (0.9-1.1) Sodium (136-145) mmol/L Potassium (3.5-5.1) mmol/L Chloride (98-107) mmol/L Carbon Dioxide (21-32) mmol/L Anion Gap (3-11) BUN (7-18) mg/dl Creatinine (0.6-1.4) mg/dl Est Cr Clr Drug Dosing ml/min Est GFR ( Amer) Est GFR (Non-Af Amer) BUN/Creatinine Ratio (10-20) Glucose (70-99) mg/dl Osmolality (280-300) mOsm/kg Calcium (8.5-10.1) mg/dl Magnesium (1.8-2.4) mg/dl Total Bilirubin (0.1-1) mg/dl AST (15-37) U/L ALT (12-78) U/L Alkaline Phosphatase (45-117) U/L CK-MB (CK-2) (0.5-3.6) ng/ml Troponin I (0-0.045) ng/ml Total Protein (6.4-8.2) gm/dl Albumin (3.4-5.0) gm/dl Globulin (2.5-4.0) gm/dl Albumin/Globulin Ratio (0.9-2) Procalcitonin (0-0.5) ng/ml TSH (0.300-4.500) uIu/ml Urine Color Urine Appearance (Clear) Urine pH (4.5-7.5) Ur Specific [place] (1.000-1.030) Urine Protein (Negative) Urine Glucose (UA) (Negative) Urine Ketones (Negative) Urine Blood (Negative) Urine Nitrite (Negative) Urine Bilirubin (Negative) Urine Urobilinogen (Negative) Ur Leukocyte Esterase (Negative) Urine Osmolality (500-800) mOsm/kg Ur Random Sodium 60 mmol/L Valproic Acid (50-100) mcg/ml Imaging Data Radiologist's Impression: Radiology results as stated below per my review and the radiologist's interpretation: XR chest 1V portable CLINICAL HISTORY: 68 years-old Male presenting with weakness. TECHNIQUE: Portable upright AP view of the chest was obtained. COMPARISON: 10/13/2018. FINDINGS: Cardiomediastinal silhouette within normal limits allowing for chronic architectural distortion of the lungs. Elevation of the right hemidiaphragm with upward retraction of the bilateral mayra, right greater than left. Chronic dense reticular opacities in the apices, right greater than left. Severe the right apex may also indicate underlying bleb/bulla. No superimposed opacity. No convincing evidence of pleural effusion or pneumothorax. Degenerative changes of the thoracic spine. Significant gaseous distention of colon below the right hemidiaphragm. IMPRESSION: 1. Chronic lung disease. No superimposed infiltrate to suggest pneumonia. 2. Gaseous distended colon. Correlate clinically. Electronically signed by: Darien Castillo M.D. 10/26/2018 6:46 PM XR pelvis 1-2V routine CLINICAL HISTORY: fall. Pelvic pain. COMPARISON STUDY: Pelvis 12/28/2016. FINDINGS: No definite acute fractures within the pelvis or hips. Large amount well-formed stool seen throughout the colon. The sacrum appears intact. 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 This suggests long-standing avascular necrosis. Overall, this is not significantly change. 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 IMPRESSION: 1. No acute fractures within the pelvis or hips. 2. Chronic deformity within the bilateral hips remain unchanged. Electronically signed by: Steven Busch M.D. 10/26/2018 6:46 PM XR shoulder RT 1V CLINICAL HISTORY: Fall. Right shoulder pain. COMPARISON STUDY: Right shoulder 10/26/2018. FINDINGS: Single AP view the right shoulder shows no acute fracture or dislocation. The distal clavicle is intact. Chronic changes again noted within the visualized lungs. IMPRESSION: Status post reduction of the right shoulder dislocation. Alignment appears anatomic. No definite acute fractures. Electronically signed by: Steven Busch M.D. 10/26/2018 6:[address] DOSE: 431.97 mGycm HISTORY: Neck pain. fall TECHNIQUE: Multiaxial CT images of the cervical spine were performed and reformatted in the sagittal and coronal plane without the use of contrast. A dose lowering technique was utilized adhering to the principles of ALARA. COMPARISON: None. FINDINGS: No fractures. Prevertebral soft tissues and the C1-C2 interval are intact. No pneumothorax. Biapical bullae and fibrotic change are noted. The bilateral C4-C5 facets are fused. There is 1 mm of anterolisthesis of C4 on C5. Moderate to severe disc space narrowing at C4-C5, C5-C6 and C6-C7. IMPRESSION: No fractures within the cervical spine. Electronically signed by: Steven Busch M.D. 10/26/2018 7:[address] CT DOSE: 638.56 mGycm HISTORY: fall TECHNIQUE: Multiaxial CT images of the head were performed without the use of intravenous contrast. Automated exposure control was utilized for this study. A dose lowering technique was utilized adhering to the principles of ALARA. Comparison: None. Findings: The paranasal sinuses and mastoid air cells are clear. The calvarium and skull base are intact. There is no mass, hematoma, midline shift, acute infarct. White matter hypodensity is nonspecific but suggestive of microvascular ischemic change. The ventricles and sulci demonstrate mild age- related involutional changes. Mild left frontal scalp swelling. Impression: No acute intracranial abnormality. Electronically signed by: Steven Busch M.D. 10/26/2018 7:39 PM ECG Data Attestation: I personally reviewed and interpreted this ECG as follows: Indication: other (lethargy) Rate (beats per minute): 85 Rhythm: normal sinus Findings: + other (peaked anterior T waves) and + 1st degree AV block Comparison ECG Date: from (01/12/17) Change: no significant change Blood Pressure Blood Pressure Findings: Elevated blood pressure Blood Pressure Disposition: further management by hospitalist [facility] Narrative The patient is a 68-year-old male who presented to the emergency depart for generalized weakness. The patient has been having worsening symptoms over the last few weeks. He has had multiple noticed falls by the personal care staff. The patient has a large hematoma in his right scapular region. He had an x-ray earlier that showed an anterior dislocation. The patient's physical exam appear to be consistent with an anterior dislocation. This was reduced without too much difficulty. I discussed the patient's laboratory and radiographic studies with the caregiver and the patient. The patient appears to have worsening anemia compared to baseline but this could be secondary to the hematoma. The patient was also noted to have hyponatremia. The patient does have some degree of hyponatremia normally but this is worse than his baseline and this could be the source of the patient's new onset of difficulty ambulating and altered mental status at times. I discussed this case with the on-call [facility] hospitalist. They have agreed to evaluate the patient in the emergency department for further management and disposition. Impression & Plan Weakness, Anemia, Hyponatremia, Dislocation of shoulder, Hematoma Discharge Plan Visit Data *Final* Discharge Date/Time: 10/27/18 00:34 Chief Complaint: Lethargic Stated Complaint: LETHARGIC ED Provider: Jong Roberson Discharge Problem: Weakness, Anemia, Hyponatremia, Dislocation of shoulder, Hematoma Patient Disposition: Admitted As Inpatient The scribe's documentation has been prepared under my direction and personally reviewed by me in its entirety. I confirm that the note above accurately reflects all work, treatment, procedures, and medical decision making performed by me.
[2018-10-26 19:12] LABS: Basophils # (auto) 0.02 K/uL (0-0.2); Basophils % (auto) 0.2 %; Eosinophils # (auto) 0.12 K/uL (0-0.5); Eosinophils % (auto) 1.1 %; Hematocrit (blood only) 26.9 % (42-52); Hemoglobin 8.9 g/dL (14.0-18.0); Immature Granulocytes # (auto) 0.34 K/uL (0.00-0.02); Immature Granulocytes % (auto) 3.1 %; Lymphocytes # (auto) 1.68 K/uL (1.2-3.4); Lymphocytes % (auto) 15.4 %; Mean Corpuscular Hgb Conc 33.1 g/dL (32-36); Mean Corpuscular Volume 85.7 fL (80-100); Mean Platelet Volume 8.7 fL (7.4-10.4); Monocytes % (auto) 9.2 %; Neutrophils # (auto) 7.72 K/uL (1.4-6.5); Platelet Count 175 K/uL (130-400); RDW Coefficient of Variation 13.5 % (11.5-14.5); RDW Standard Deviation 42.4 fL (36.4-46.3); Red Blood Count 3.14 M/uL (4.7-6.1); White Blood Count 10.88 K/uL (4.8-10.8)
[2018-10-26 19:23] LABS: Prothrombin Time 10.2 Seconds (9.0-12.0)
[2018-10-26 19:28] LABS: Alanine Aminotransferase 14 U/L (12-78); Albumin Level 3.1 gm/dl (3.4-5.0); Aspartate Aminotransferase 12 U/L (15-37); BUN Creatinine Ratio 23.6 (10-20); Blood Urea Nitrogen 20 mg/dl (7-18); Calcium 9.2 mg/dl (8.5-10.1); Carbon Dioxide 26 mmol/L (21-32); Chloride 87 mmol/L (98-107); Creatinine Clr Calc Pharmacy 85.1 ml/min; Est GFR (African American) 105.7; Est GFR (Non-African American) 91.2; Glucose 79 mg/dl (70-99); Magnesium 2.2 mg/dl (1.8-2.4); Potassium 5.1 mmol/L (3.5-5.1); Sodium 121 mmol/L (136-145)
[2018-10-26 19:39] LABS: Albumin Globulin Ratio 0.8 (0.9-2); Alkaline Phosphatase 88 U/L (45-117); Bilirubin,Total 0.5 mg/dl (0.1-1); Creatine Kinase MB 2.5 ng/ml (0.5-3.6); Total Protein 7.1 gm/dl (6.4-8.2); Troponin I < 0.015 ng/ml (0-0.045)
--- NOTE | 2018-10-26 19:40 | CT Scan Report ---
HEAD CT NONCONTRAST CT DOSE: 638.56 mGycm HISTORY: fall TECHNIQUE: Multiaxial CT images of the head were performed without the use of intravenous contrast. A utomated exposure control was utilized for this study. A dose lowering technique was utilized adheri ng to the principles of ALARA. Comparison: None. Findings: The paranasal sinuses and mastoid air cells are clear. The calvarium and skull base are int act. There is no mass, hematoma, midline shift, acute infarct. White matter hypodensity is nonspecifi c but suggestive of microvascular ischemic change. The ventricles and sulci demonstrate mild age-rela edwardo involutional changes. Mild left frontal scalp swelling. Impression: No acute intracranial abnormality. Electronically signed by: Steven Busch M.D. 10/26/2018 7:39 PM
--- NOTE | 2018-10-26 19:50 | CT Scan Report ---
CERVICAL SPINE CT CT DOSE: 431.97 mGycm HISTORY: Neck pain. fall TECHNIQUE: Multiaxial CT images of the cervical spine were performed and reformatted in the sagittal and coronal plane without the use of contrast. A dose lowering technique was utilized adhering to th e principles of ALARA. COMPARISON: None. FINDINGS: No fractures. Prevertebral soft tissues and the C1-C2 interval are intact. No pneumothorax. Biapical bullae and fibrotic change are noted. The bilateral C4-C5 facets are fused. There is 1 mm o f anterolisthesis of C4 on C5. Moderate to severe disc space narrowing at C4-C5, C5-C6 and C6-C7. IMPRESSION: No fractures within the cervical spine. Electronically signed by: Steven Busch M.D. 10/26/2018 7:48 PM
[2018-10-26 20:10] LABS: RBC Morphology Unremarkable
--- NOTE | 2018-10-26 23:46 | History & Physical Report ---
Date of Service October 26, 2018 Assessment & Plan (1) Hyponatremia: Sodium 121. Check a serum osmolality and urine osmolality. For now placed on normal saline at 100 mils per hour until workup completed. Could be associated with uncorrected hypothyroidism. Present on Admission?: Yes (2) Generalized weakness: Potential reasons including that of hyponatremia, uncorrected hypothyroidism, anemia and osteoarthritis. Hyponatremia--workup as above. Uncorrected hypothyroidism-- Start levothyroxine sodium 50 mcg p.o. daily. Anemia-- Hemoglobin of 8.9 is lower than usual. Usual ranges from 9.7-10.7. Anemia may also be related to uncorrected hypothyroidism. Hemoccult stools. Present on Admission?: Yes (3) Dislocation of shoulder: Reduced by ED physician Dr. Roberson in the ED. Acetaminophen 500 mg p.o. every 6 hours as needed mild pain or temperature. Hydrocodone/acetaminophen 5/325, 1 p.o. every 6 hours as needed moderate pain. Present on Admission?: Yes (4) Seizure disorder: Continue divalproex, clozapine, and benztropine as outpatient. Present on Admission?: Yes (5) BPH (benign prostatic hyperplasia): Continue finasteride and tamsulosin. No suggestion of UTI on urinalysis. Present on Admission?: Yes (6) GERD (gastroesophageal reflux disease): Pantoprazole 40 mg daily Present on Admission?: Yes History of Present Illness Chief Complaint: The patient presents to the emergency department with complaint of increasing lethargy over the past week. Primary Care Provider: Júnior Orantes MD The patient is a 68-year-old male who presents to the emergency department with complaint of worsening lethargy over the past week. His drum puller reports that he has been incoherent and had difficulty transferring, has fallen multiple times, 1 of which he hit his head and had superficial bleeding but no loss of consciousness. He reports that the patient fell twice 3 days ago at which time he was thought to have a dislocated right shoulder. The dislocated shoulder was reduced in the emergency department by Dr. Roberson without difficulty. The history of present illness and review of systems is limited due to patient' s inability to respond, and is primarily supplied by the drum puller. Allergies Allergy/AdvReac Type Severity Reaction Status Date / Time diltiazem Allergy Unknown rash and Verified 08/30/18 12:39 edema Home Medications Home Medications Medication Instructions Recorded Confirmed Type acetaminophen 500 mg PO Q6H PRN 08/30/18 10/26/18 History aspirin 81 mg PO DAILY 08/30/18 10/26/18 History benztropine 0.5 mg PO DAILY 08/30/18 10/26/18 History cholecalciferol (vitamin D3) 2,000 unit PO DAILY 08/30/18 10/26/18 History [Vitamin D3] clozapine 300 mg PO HS 08/30/18 10/26/18 History cyanocobalamin-cobamamide [B12] 1,000 mg SUBLINGUAL 2XWK 08/30/18 10/26/18 History divalproex [Depakote] 125 mg PO BID 08/30/18 10/26/18 History divalproex [Depakote] 250 mg PO BID 08/30/18 10/26/18 History finasteride 5 mg PO DAILY 08/30/18 10/26/18 History hydrocodone-acetaminophen 1 tab PO TID 08/30/18 10/26/18 History magnesium hydroxide [Milk of 2 tbsp PO HS PRN 08/30/18 10/26/18 History Magnesia] metoprolol succinate 50 mg PO DAILY 08/30/18 10/26/18 History mometasone [Asmanex Twisthaler] 1 inh INHALATION QPM 08/30/18 10/26/18 History phenazopyridine 200 mg PO TID PRN 08/30/18 10/26/18 History polyethylene glycol 1450(bulk) 17 g MISCELLANEOUS DIRECTED 08/30/18 10/26/18 History [Polyglycol Shaggy Base] ranitidine HCl [Zantac 75] 75 mg PO BID PRN 08/30/18 10/26/18 History tamsulosin 0.4 mg PO DAILY 08/30/18 10/26/18 History ipratropium-albuterol 3 ml NEB Q4H PRN #30 ml 09/08/18 10/26/18 Rx Past Med/Surg History Medical History Aspiration pneumonia Anemia (Acute) Acute hyponatremia (Acute) DVT prophylaxis Sepsis Hypertension GERD (gastroesophageal reflux disease) BPH (benign prostatic hyperplasia) Seizure disorder Acute respiratory failure with hypoxia Pneumonia (Acute) Abnormal chest CT (Acute) Anemia (Acute) Diabetes mellitus (Chronic 01/08/13) Hyperammonemia Hyperkalemia, diminished renal excretion Hyponatremia (Acute) Schizophrenia (Chronic 01/08/13) Social History marital status: Current Living Situation: Personal Care Facility Current Living Situation Comment: [place] current occupational status: retired Other Information That Helps Us Care for You: No Feels Safe at Home: Yes Safety Concerns: Feels Safe At This Time Smoking Status: Former smoker Do You Dip or Chew Tobacco: No Second Hand Exposure: No Tobacco Cessation Education Requested by Patient: No Hx Alcohol Use: No Hx Substance Use: No Beliefs That Will Affect Care: None Preferred Language: Malawian Communication Ability: Effective Attendant [facility] Required: No Review of Systems Limited due to patient's inability to respond, and is as supplied by the drum puller in the HPI Physical Exam 2 Vital Signs (Past 24 Hours): Last Vital Signs Temp 36.4 C L 10/26/18 17:10 Pulse 91 H 10/26/18 22:42 Resp 18 10/26/18 22:42 BP 133/73 10/26/18 22:42 Pulse Ox 93 10/26/18 22:42 Physical Exam: The patient is awake, and more alert than upon initial presentation, a few ecchymoses, lying in bed and in no acute distress. HEENT--PERRL, EOMI, mucous membranes and oropharynx dry. Neck--supple. No JVD. No bruits. Thyroid normal, trachea midline, no adenopathy. Heart--normal S1 and S2. No murmurs, rubs or gallops. Lungs--clear bilaterally, no respiratory distress, no accessory muscle use. Abdomen--normal bowel sounds and soft. Nontender. Nondistended, no hernias or masses, no organomegaly. Extremities--no cyanosis or clubbing. No edema. There are good distal pulses b/ l. Dermatologic--hematoma over right shoulder. Neurologic--cranial nerves II through XII grossly intact. Rheumatologic--normal range of motion. Psychiatric--normal affect. Results & Data Laboratory Results Laboratory Results WBC 10.88 K/uL (4.8-10.8) H 10/26/18 19:03 RBC 3.14 M/uL (4.7-6.1) L 10/26/18 19:03 Hgb 8.9 g/dL (14.0-18.0) L 10/26/18 19:03 Hct 26.9 % (42-52) L 10/26/18 19:03 MCV 85.7 fL (80-100) 10/26/18 19:03 MCH 28.3 pg (25-34) 10/26/18 19:03 MCHC 33.1 g/dL (32-36) 10/26/18 19:03 RDW Std Deviation 42.4 fL (36.4-46.3) 10/26/18 19: RDW Coeff of Nakia 13.5 % (11.5-14.5) 10/26/18 19: Plt Count 175 K/uL (130-400) 10/26/18 19:03 MPV 8.7 fL (7.4-10.4) 10/26/18 19:03 Immature Gran % (Auto) 3.1 % 10/26/18 19:03 Neut % (Auto) 71.0 % 10/26/18 19: Lymph % (Auto) 15.4 % 10/26/18 19:03 Miller % (Auto) 9.2 % 10/26/18 19:03 Eos % (Auto) 1.1 % 10/26/18 19:03 Baso % (Auto) 0.2 % 10/26/18 19:03 Immature Gran # (Auto) 0.34 K/uL (0.00-0.02) H 10/26/18 19:03 Neut # (Auto) 7.72 K/uL (1.4-6.5) H 10/26/18 19:03 Lymph # (Auto) 1.68 K/uL (1.2-3.4) 10/26/18 19:03 Miller # (Auto) 1.00 K/uL (0.11-0.59) H 10/26/18 19:03 Eos # (Auto) 0.12 K/uL (0-0.5) 10/26/18 19:03 Baso # (Auto) 0.02 K/uL (0-0.2) 10/26/18 19:03 RBC Morphology Unremarkable 10/26/18 19:03 PT 10.2 Seconds (9.0-12.0) 10/26/18 19:03 INR 1.0 (0.9-1.1) 12/27/18 19:03 Sodium 121 mmol/L (136-145) L 10/26/18 19:03 Potassium 5.1 mmol/L (3.5-5.1) 10/26/18 19:03 Chloride 87 mmol/L (98-107) L 10/26/18 19:03 Carbon Dioxide 26 mmol/L (21-32) 10/26/18 19:03 Anion Gap 9.0 (3-11) 10/26/18 19:03 BUN 20 mg/dl (7-18) H 10/26/18 19:03 Creatinine 0.84 mg/dl (0.6-1.4) 10/26/18 19:03 Est Cr Clr Drug Dosing 85.1 ml/min 10/26/18 19:03 Est GFR ( Amer) 105.7 10/26/18 19:03 Est GFR (Non-Af Amer) 91.2 10/26/18 19:03 BUN/Creatinine Ratio 23.6 (10-20) H 10/26/18 19:03 Glucose 79 mg/dl (70-99) 10/26/18 19:03 Calcium 9.2 mg/dl (8.5-10.1) 10/26/18 19:03 Magnesium 2.2 mg/dl (1.8-2.4) 10/26/18 19:03 Total Bilirubin 0.5 mg/dl (0.1-1) 10/26/18 19:03 AST 12 U/L (15-37) L 10/26/18 19:03 ALT 14 U/L (12-78) 10/26/18 19:03 Alkaline Phosphatase 88 U/L (45-117) 10/26/18 19:03 CK-MB (CK-2) 2.5 ng/ml (0.5-3.6) 10/26/18 19:03 Troponin I < 0.015 ng/ml (0-0.045) 10/26/18 19:03 Total Protein 7.1 gm/dl (6.4-8.2) 10/26/18 19:03 Albumin 3.1 gm/dl (3.4-5.0) L 10/26/18 19:03 Globulin 4.0 gm/dl (2.5-4.0) 10/26/18 19:03 Albumin/Globulin Ratio 0.8 (0.9-2) L 10/26/18 19:03 TSH 7.300 uIu/ml (0.300-4.500) H 10/26/18 19:03 Urine Color Yellow 10/26/18 18:46 Urine Appearance Clear (Clear) 10/26/18 18:46 Urine pH 7.5 (4.5-7.5) 10/26/18 18:46 Ur Specific [place] 1.016 (1.000-1.030) 10/26/18 18:46 Urine Protein Negative (Negative) 10/26/18 18:46 Urine Glucose (UA) Negative (Negative) 10/26/18 18:46 Urine Ketones Negative (Negative) 10/26/18 18:46 Urine Blood Negative (Negative) 10/26/18 18:46 Urine Nitrite Negative (Negative) 10/26/18 18:46 Urine Bilirubin Negative (Negative) 10/26/18 18:46 Urine Urobilinogen Negative (Negative) 10/26/18 18:46 Ur Leukocyte Esterase Negative (Negative) 10/26/18 18:46 Valproic Acid 68 mcg/ml (50-100) 10/26/18 19:03 Diagnostic Findings [place], [place] [phone] XRay Report Patient: JOSIE DO Date: 10/26/18 MR#: [id number]: RUMA MUNOZ Acct ID:[id number]: [address] Date: [address] [place] [address] Zip: [place] [address] Age: 68Location: RAD Sex: M Room/Bed: Att Phy: Heydi Davies CRNPDiagnosis: W19.XXXA,M25.511,R32,R39.9 Maribeth Phy: Khari Orantes M.D.Service Date: 10/26/18 Fam Phy: Interpreting Phy: Darien Castillo MD Admit Phy: Ordering Phy: Heydi Davies CRNP cc: ~ XR shoulder RT min 2V routine CLINICAL HISTORY: 68 years-old Male presenting with Pain in joint of right shoulder. TECHNIQUE: Internal rotation, external rotation, and transscapular Y views of the right shoulder were obtained. COMPARISON: 02/04/2016. FINDINGS: Anterior dislocation of the right shoulder suspected allowing for significant limitations in image quality due to positioning. Ossific fragments may be present in the superior joint space. Acromioclavicular joint grossly congruent. Heterogeneous appearance of the right lung parenchyma with upper lobe opacities again suggested. IMPRESSION: 1. Findings suspicious for anterior dislocation of the right humeral head. Positioning is significantly suboptimal. Consider orthopedic consultation versus cross-sectional imaging. 2. Ossicles superior to the glenohumeral joint. Fracture fragments not excluded. Electronically signed by: Darien Castillo M.D. 10/26/2018 4:52 PM Dictated: 10/26/18 165 Transcribed: 10/26/181649 [place], [place] [phone] CT Scan Report Patient: JOSIE DO Date: 10/26/18 MR#: [id number]: RUMA MUNOZ Acct ID:[id number]: [address] [facility] Date: 1950[facility] Zip: [place] [address] Age: 68Location: ED Sex: M Room/Bed: Att Phy: Diagnosis: LETHARGIC Maribeth Phy: Khari Orantes M.D.Service Date: 10/26/18 Fam Phy: Interpreting Phy: Steven Busch MD Admit Phy: Ordering Phy: Jong Roberson DO cc: ~ CERVICAL SPINE CT CT DOSE: 431.97 mGycm HISTORY: Neck pain. fall TECHNIQUE: Multiaxial CT images of the cervical spine were performed and reformatted in the sagittal and coronal plane without the use of contrast. A dose lowering technique was utilized adhering to the principles of ALARA. COMPARISON: None. FINDINGS: No fractures. Prevertebral soft tissues and the C1-C2 interval are intact. No pneumothorax. Biapical bullae and fibrotic change are noted. The bilateral C4-C5 facets are fused. There is 1 mm of anterolisthesis of C4 on C5. Moderate to severe disc space narrowing at C4-C5, C5-C6 and C6-C7. IMPRESSION: No fractures within the cervical spine. Electronically signed by: Steven Busch M.D. 10/26/2018 7:48 PM Dictated: 10/26/181941 Transcribed: 10/26/181941 [facility], [place] [phone] XRay Report Patient: JOSIE DO Date: 10/26/18 MR#: [id number]: RUMA MUNOZ Acct ID:[id number]: [address] Date: 1950[facility] Zip: [place] [address] Age: 68Location: ED Sex: M Room/Bed: Att Phy: Diagnosis: LETHARGIC Maribeth Phy: Khari Orantes M.D.Service Date: 10/26/18 Fam Phy: Interpreting Phy: Darien Castillo MD Admit Phy: Ordering Phy: Jong Roberson DO cc: ~ XR chest 1V portable CLINICAL HISTORY: 68 years-old Male presenting with weakness. TECHNIQUE: Portable upright AP view of the chest was obtained. COMPARISON: 10/13/2018. FINDINGS: Cardiomediastinal silhouette within normal limits allowing for chronic architectural distortion of the lungs. Elevation of the right hemidiaphragm with upward retraction of the bilateral mayra, right greater than left. Chronic dense reticular opacities in the apices, right greater than left. Severe the right apex may also indicate underlying bleb/bulla. No superimposed opacity. No convincing evidence of pleural effusion or pneumothorax. Degenerative changes of the thoracic spine. Significant gaseous distention of colon below the right hemidiaphragm. IMPRESSION: 1. Chronic lung disease. No superimposed infiltrate to suggest pneumonia. 2. Gaseous distended colon. Correlate clinically. Electronically signed by: Darien Castillo M.D. 10/26/2018 6:46 PM Dictated: 10/26/181843 Transcribed: 10/26/181843 [facility], [place] [phone] CT Scan Report Patient: JOSIE OD Date: 10/26/18 MR#: [id number]: RUMA MUNOZ Acct ID:[id number]: [address] Date: 1950[facility] Zip: [place] [address] Age: 68Location: ED Sex: M Room/Bed: Att Phy: Diagnosis: LETHARGIC Maribeth Phy: Khari Orantes M.D.Service Date: 10/26/18 Fam Phy: Interpreting Phy: Steven Busch MD Admit Phy: Ordering Phy: Jong Roberson DO cc: ~ HEAD CT NONCONTRAST CT DOSE: 638.56 mGycm HISTORY: fall TECHNIQUE: Multiaxial CT images of the head were performed without the use of intravenous contrast. Automated exposure control was utilized for this study. A dose lowering technique was utilized adhering to the principles of ALARA. Comparison: None. Findings: The paranasal sinuses and mastoid air cells are clear. The calvarium and skull base are intact. There is no mass, hematoma, midline shift, acute infarct. White matter hypodensity is nonspecific but suggestive of microvascular ischemic change. The ventricles and sulci demonstrate mild age- related involutional changes. Mild left frontal scalp swelling. Impression: No acute intracranial abnormality. Electronically signed by: Steven Busch M.D. 10/26/2018 7:39 PM Dictated: 10/26/181934 Transcribed: 10/26/181934 [facility], [place] [phone] XRay Report Patient: JOSIE DO Date: 10/26/18 MR#: [id number]: RUMA MUNOZ Acct ID:[id number]: [address] Date: [address] [place] [address] Zip: [place] [address] Age: 68Location: ED Sex: M Room/Bed: Att Phy: Diagnosis: LETHARGIC Maribeth Phy: Khari Orantes M.D.Service Date: 10/26/18 Fam Phy: Interpreting Phy: Steven Busch MD Admit Phy: Ordering Phy: Jong Roberson DO cc: ~ XR pelvis 1-2V routine CLINICAL HISTORY: fall. Pelvic pain. COMPARISON STUDY: Pelvis 12/28/2016. FINDINGS: No definite acute fractures within the pelvis or hips. Large amount well-formed stool seen throughout the colon. The sacrum appears intact. 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 This suggests long-standing avascular necrosis. Overall, this is not significantly change. 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 IMPRESSION: 1. No acute fractures within the pelvis or hips. 2. Chronic deformity within the bilateral hips remain unchanged. Electronically signed by: Steven Busch M.D. 10/26/2018 6:46 PM Dictated: 10/26/181843 Transcribed: 10/26/181843 [facility], [place] [phone] XRay Report Patient: JOSIE DO Date: 10/26/18 MR#: [id number]: RUMA MUNOZ Acct ID:[id number]: [address] Date: 1950[facility] Zip: [place] [address] Age: 68Location: ED Sex: M Room/Bed: Att Phy: Diagnosis: LETHARGIC Maribeth Phy: Khari Orantes M.D.Service Date: 10/26/18 [facility] Phy: Interpreting Phy: Steven Busch MD Admit Phy: Ordering Phy: Jong Roberson DO cc: ~ XR shoulder RT 1V CLINICAL HISTORY: Fall. Right shoulder pain. COMPARISON STUDY: Right shoulder 10/26/2018. FINDINGS: Single AP view the right shoulder shows no acute fracture or dislocation. The distal clavicle is intact. Chronic changes again noted within the visualized lungs. IMPRESSION: Status post reduction of the right shoulder dislocation. Alignment appears anatomic. No definite acute fractures. Electronically signed by: Steven Busch M.D. 10/26/2018 6:48 PM Dictated: 10/26/181845 Transcribed: 10/26/181845 Code Status & VTE Plan Code Status Full code VTE Prophylaxis Plan VTE Prophylaxis will be ordered: Yes _ (1) Dislocation of shoulder Encounter type: initial encounter Laterality: right Qualified Code(s): S43.004A - Unspecified dislocation of right shoulder joint, initial encounter (2) BPH (benign prostatic hyperplasia) Lower urinary tract symptom presence: symptoms absent Lower urinary tract symptom detail: Qualified Code(s): N40.0 - Benign prostatic hyperplasia without lower urinary tract symptoms (3) GERD (gastroesophageal reflux disease) Esophagitis presence: esophagitis presence not specified Qualified Code(s): K21.9 - Gastro-esophageal reflux disease without esophagitis
[2018-10-27] MEDS ORDERED: POLYETHYLENE GLYCOL 17 GM MS SCH (01:03)
[2018-10-27] MEDS ORDERED: ALBUT/IPRATROP 3MG/0.5MG NEB 3 ML VIAL NEB PRN (01:03)
[2018-10-27] MEDS ORDERED: ALUMINUM/MAGNESIUM SUSP 30 ML UDC PO PRN (01:03)
[2018-10-27] MEDS ORDERED: PHENAZOPYRIDINE HCL 200 MG TAB PO PRN (01:03)
[2018-10-27] MEDS ORDERED: DIVALPROEX DELAY RELEASE 250 MG TABEC PO SCH (01:03)
[2018-10-27] MEDS ORDERED: MAGNESIUM HYDROXIDE SUSP 30 ML UDC PO PRN ×2 (01:03)
[2018-10-27] MEDS ORDERED: DIVALPROEX DELAY RELEASE 125 MG TABEC PO SCH (01:03)
[2018-10-27] MEDS ORDERED: POLYETHYLENE (MIRALAX) 17 GM PACK PO PRN (01:03)
[2018-10-27] MEDS ORDERED: BENZTROPINE MESYLATE 0.5 MG TAB PO STA (01:09)
[2018-10-27] MEDS ORDERED: FINASTERIDE 5 MG TAB PO STA (01:10)
[2018-10-27] MEDS: ACETAMINOPHEN 500 MG TAB PO PRN ×2 (03:42→18:46)
[2018-10-27] MEDS ORDERED: LEVOTHYROXINE SODIUM 50 MCG TABLET PO SCH (06:30)
[2018-10-27] MEDS ORDERED: INFLUENZA ADMINISTRATION CHARGE ONE (07:15)
[2018-10-27] MEDS ORDERED: PNEUMOCOCCAL ADMINISTRATION CHARGE ONE (07:15)
[2018-10-27] MEDS ORDERED: PNEUMOCOCCAL POLYSACCHARIDES 25 MCG/0.5 ML VIAL/SYR IM ONE (07:15)
[2018-10-27] MEDS ORDERED: INFLUENZA VACCINE HIGH DOSE 65+ 0.5 ML SYR IM ONE (07:15)
[2018-10-27] MEDS: ASPIRIN 81 MG ECTAB PO SCH (07:42)
[2018-10-27] MEDS: DIVALPROEX DELAY RELEASE 250 MG TABEC PO SCH ×2 (07:42→20:38)
[2018-10-27] MEDS: CYANOCOBALAMIN 500 MCG TABLET (VITAMIN B-12) PO SCH (07:43)
[2018-10-27] MEDS: METOPROLOL SUCC 50MG EXT REL TAB PO SCH (07:43)
[2018-10-27] MEDS: CHOLECALCIFEROL 1,000 UNITS TAB PO SCH (07:43)
[2018-10-27] MEDS: DIVALPROEX DELAY RELEASE 125 MG TABEC PO SCH ×2 (07:44→20:38)
[2018-10-27] MEDS: HYDROCODONE/ACETAMINOPHEN 7.5/325MG TAB PO SCH ×3 (08:47→20:42)
[2018-10-27] MEDS ORDERED: BENZTROPINE MESYLATE 0.5 MG TAB PO SCH ×2 (09:00→21:00)
[2018-10-27] MEDS ORDERED: FINASTERIDE 5 MG TAB PO SCH (09:00)
[2018-10-27] MEDS: SODIUM CHLORIDE 0.9% 1000ML 1,000 ML IV SCH ×2 (09:11→21:20)
[2018-10-27 09:34] LABS: BUN Creatinine Ratio 17.4 (10-20); Calcium 8.7 mg/dl (8.5-10.1); Creatinine Clr Calc Pharmacy 98.7 ml/min; Est GFR (Non-African American) 94.1; Potassium 4.5 mmol/L (3.5-5.1)
--- NOTE | 2018-10-27 11:37 | Hospitalist Progress Note ---
Date of Service October 27, 2018 Assessment & Plan (1) Hyponatremia: Sodium was 121 on admission. 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 poor oral intake. - Check a serum osmolality and urine osmolality - Gentle IVFs with normal saline (2) Generalized weakness: Potential reasons including that of hyponatremia, uncorrected hypothyroidism, anemia, and infection. 1) Hyponatremia - Workup as above 2) Uncorrected hypothyroidism - Started levothyroxine sodium 50 mcg p.o. daily on admission. 3) Anemia - Hgb baseline ~10; now 8.9. Hemoccult stools. 4) Infection - UA normal on admission. Will get procalcitonin as he has a complex CXR from prior aspirations. Will follow up and also get PT/OT to see him. (3) Schizophrenia: Seen by psychiatry during prior admission with recs to continue his home clozapine. However, at that time, agreed with holding his benztropine as he wasn 't having any EPS symptoms. - Continue clozapine - Hold benztropine (4) Dislocation of shoulder: Reduced by ED physician Dr. Roberson in the ED. - Continue acetaminophen & hydrocodone/acetaminophen PRN (5) Seizure disorder: Valproic acid level drawn in the ED and was within prior baselines. - Continue divalproex (6) BPH (benign prostatic hyperplasia): No suggestion of UTI on urinalysis. - Continue finasteride and tamsulosin (7) GERD (gastroesophageal reflux disease): Continue pantoprazole 40 mg daily (8) DVT prophylaxis: Low VTE risk - SCDs Subjective 68yo M w/ hx of schizophrenia who presents with 1 week of lethargy and increased confusion. This morning, he is moderately more alert. He still mumbles quietly in response to questions, but otherwise does answer questions. Physical Exam 2 Vital Signs (Past 24 Hours): Last Vital Signs Temp 36.3 C L 10/27/18 10:29 Pulse 81 10/27/18 10:29 Resp 18 10/27/18 10:29 BP 148/78 H 10/27/18 10:29 Pulse Ox 94 10/27/18 10:29 Constitutional: WD/WN, vitals as above + acute distress, + cachectic, + frail appearing, + disheveled and cooperative Eyes: EOM intact bilaterally; no conjunctival abnormality ENMT: external ear and nose normal, oropharynx normal Neck: trachea midline, no thyromegaly normal visual inspection Respiratory: normal respiratory effort, lungs clear to auscultation no respiratory distress Cardiovascular: RRR, no murmur, no edema Gastrointestinal (Abdomen): Inspection/Auscultation: abdomen normal to inspection; abdomen not distended Musculoskeletal: no cyanosis or clubbing, extremities motor strength 5/5 Skin: no rashes, warm and dry Neurologic: moves all extremities and awake Psychiatric: Orientation: alert, oriented to person and cooperative _ (1) BPH (benign prostatic hyperplasia) Lower urinary tract symptom detail: Lower urinary tract symptom presence: symptoms absent Qualified Code(s): N40.0 - Benign prostatic hyperplasia without lower urinary tract symptoms (2) Dislocation of shoulder Encounter type: initial encounter Laterality: right Qualified Code(s): S43.004A - Unspecified dislocation of right shoulder joint, initial encounter (3) GERD (gastroesophageal reflux disease) Esophagitis presence: esophagitis presence not specified Qualified Code(s): K21.9 - Gastro-esophageal reflux disease without esophagitis (4) Schizophrenia Schizophrenia type: unspecified Qualified Code(s): F20.9 - Schizophrenia, unspecified
[2018-10-27] MEDS: TAMSULOSIN HCL 0.4 MG CAP PO SCH (20:39)
[2018-10-27] MEDS: cloZAPine 100 MG TAB PO SCH (20:41)
[2018-10-27] MEDS: FINASTERIDE 5 MG TAB PO SCH (20:45)
[2018-10-28] MEDS: LEVOTHYROXINE SODIUM 100 MCG TABLET PO SCH (05:58)
[2018-10-28 05:59] LABS: Hematocrit (blood only) 29.3 % (42-52); Hemoglobin 9.6 g/dL (14.0-18.0); Mean Corpuscular Hgb Conc 32.8 g/dL (32-36); Mean Corpuscular Volume 86.4 fL (80-100); Mean Platelet Volume 8.8 fL (7.4-10.4); Platelet Count 181 K/uL (130-400); RDW Coefficient of Variation 13.6 % (11.5-14.5); Red Blood Count 3.39 M/uL (4.7-6.1); White Blood Count 8.75 K/uL (4.8-10.8)
[2018-10-28 06:34] LABS: BUN Creatinine Ratio 15.2 (10-20); Calcium 8.6 mg/dl (8.5-10.1); Creatinine Clr Calc Pharmacy 125.3 ml/min; Est GFR (African American) 119.8; Est GFR (Non-African American) 103.4; Magnesium 1.7 mg/dl (1.8-2.4); Potassium 4.7 mmol/L (3.5-5.1)
[2018-10-28] MEDS: DIVALPROEX DELAY RELEASE 125 MG TABEC PO SCH ×2 (08:35→20:11)
[2018-10-28] MEDS: METOPROLOL SUCC 50MG EXT REL TAB PO SCH (08:36)
[2018-10-28] MEDS: ASPIRIN 81 MG ECTAB PO SCH (08:36)
[2018-10-28] MEDS: CHOLECALCIFEROL 1,000 UNITS TAB PO SCH (08:36)
[2018-10-28] MEDS: DIVALPROEX DELAY RELEASE 250 MG TABEC PO SCH ×2 (08:36→20:12)
[2018-10-28] MEDS: HYDROCODONE/ACETAMINOPHEN 7.5/325MG TAB PO SCH ×3 (08:36→20:10)
[2018-10-28] MEDS: SODIUM CHLORIDE 0.9% 1000ML 1,000 ML IV SCH (08:39)
--- NOTE | 2018-10-28 14:13 | Hospitalist Progress Note ---
Date of Service October 28, 2018 Assessment & Plan (1) Hyponatremia: Sodium was 121 on admission. 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 poor oral intake. Urine osmolality on 10/27 was 264 with urine sodium of 60, indicating SIADH vs. hypothyroidism. Given his elevated TSH, we are going with hypothyroidism. - Gentle IVFs with normal saline (in case of some mildly low solute) - Hypothroidism as below - As of 10/28, improving slowly to 126 (2) Hypothyroid: TSH in 07/2018 was 1.4; on admission it was 7.3. No reflex FT4 though. - Started on levothyroxine 100 mcg PO daily - TSH and FT4 (3) Generalized weakness: Potential reasons including that of hyponatremia, uncorrected hypothyroidism, anemia, and infection. 1) Hyponatremia - Workup as above 2) Uncorrected hypothyroidism - Started levothyroxine 100 mcg PO daily 3) Anemia - Hgb baseline ~10; near baseline. Monitor for bleeding 4) Infection - UA normal on admission. Negative procalcitonin. Normal vital signs and white count. Infection therefore unlikely. Will follow up and also get PT/OT to see him. (4) Schizophrenia: Seen by psychiatry during prior admission with recs to continue his home clozapine. However, at that time, they agreed with holding his benztropine as he wasn't having any EPS symptoms. - Continue clozapine - Hold benztropine (5) Dislocation of shoulder: Reduced by ED physician Dr. Roberson in the ED. - Continue acetaminophen & hydrocodone/acetaminophen PRN (6) Seizure disorder: Valproic acid level drawn in the ED and was within prior baselines. - Continue divalproex (7) BPH (benign prostatic hyperplasia): No suggestion of UTI on urinalysis. - Continue finasteride and tamsulosin (8) GERD (gastroesophageal reflux disease): Continue pantoprazole 40 mg daily (9) DVT prophylaxis: Low VTE risk - SCDs Subjective 68yo M w/ hx of schizophrenia who presents with 1 week of lethargy and increased confusion. This morning, he is still a bit more alert. He still mumbles quietly in response to questions, but otherwise does answer questions. Reports no fevers/ chills, chest pain, shortness of breath, abdominal pain, nausea, or vomiting. Physical Exam 2 Vital Signs (Past 24 Hours): Last Vital Signs Temp 36.4 C L 10/28/18 10:48 Pulse 79 10/28/18 10:48 Resp 20 10/28/18 10:48 BP 140/69 10/28/18 10:48 Pulse Ox 94 10/28/18 10:48 Constitutional: WD/WN, vitals as above + cachectic, + frail appearing, + disheveled and cooperative; no acute distress Eyes: EOM intact bilaterally; no conjunctival abnormality ENMT: external ear and nose normal, oropharynx normal Neck: trachea midline, no thyromegaly normal visual inspection Respiratory: normal respiratory effort, lungs clear to auscultation no respiratory distress Cardiovascular: RRR, no murmur, no edema Gastrointestinal (Abdomen): Inspection/Auscultation: abdomen normal to inspection; abdomen not distended Musculoskeletal: no cyanosis or clubbing, extremities motor strength 5/5 Skin: no rashes, warm and dry Neurologic: moves all extremities and awake Psychiatric: Orientation: alert, oriented to person and cooperative _ (1) Schizophrenia Schizophrenia type: unspecified Qualified Code(s): F20.9 - Schizophrenia, unspecified (2) Dislocation of shoulder Encounter type: initial encounter Laterality: right Qualified Code(s): S43.004A - Unspecified dislocation of right shoulder joint, initial encounter (3) BPH (benign prostatic hyperplasia) Lower urinary tract symptom presence: symptoms absent Lower urinary tract symptom detail: Qualified Code(s): N40.0 - Benign prostatic hyperplasia without lower urinary tract symptoms (4) GERD (gastroesophageal reflux disease) Esophagitis presence: esophagitis presence not specified Qualified Code(s): K21.9 - Gastro-esophageal reflux disease without esophagitis (5) Hypothyroid Hypothyroidism type: acquired Qualified Code(s): E03.9 - Hypothyroidism, unspecified
[2018-10-28] MEDS: MAGNESIUM SULFATE / D5W 1 GM/100 ML BAG IV SCH ×2 (14:47→16:15)
[2018-10-28] MEDS: TAMSULOSIN HCL 0.4 MG CAP PO SCH (19:38)
[2018-10-28] MEDS: FINASTERIDE 5 MG TAB PO SCH (20:11)
[2018-10-28] MEDS: cloZAPine 100 MG TAB PO SCH (20:13)
[2018-10-28] MEDS: ACETAMINOPHEN 500 MG TAB PO PRN (21:31)
[2018-10-29] MEDS: ACETAMINOPHEN 500 MG TAB PO PRN (03:13)
[2018-10-29] MEDS: LEVOTHYROXINE SODIUM 100 MCG TABLET PO SCH (05:41)
[2018-10-29] MEDS: DIVALPROEX DELAY RELEASE 125 MG TABEC PO SCH ×2 (08:10→20:37)
[2018-10-29] MEDS: HYDROCODONE/ACETAMINOPHEN 7.5/325MG TAB PO SCH ×3 (08:11→20:37)
[2018-10-29] MEDS: CHOLECALCIFEROL 1,000 UNITS TAB PO SCH (08:11)
[2018-10-29] MEDS: DIVALPROEX DELAY RELEASE 250 MG TABEC PO SCH ×2 (08:11→20:37)
[2018-10-29] MEDS: ASPIRIN 81 MG ECTAB PO SCH (08:11)
[2018-10-29] MEDS: METOPROLOL SUCC 50MG EXT REL TAB PO SCH (08:11)
[2018-10-29 08:16] LABS: BUN Creatinine Ratio 12.6 (10-20); Calcium 8.6 mg/dl (8.5-10.1); Creatinine Clr Calc Pharmacy 99.9 ml/min; Est GFR (African American) 108.5; Est GFR (Non-African American) 93.6; Magnesium 2.1 mg/dl (1.8-2.4); Potassium 4.7 mmol/L (3.5-5.1)
--- NOTE | 2018-10-29 14:24 | Hospitalist Progress Note ---
Date of Service October 29, 2018 Assessment & Plan (1) Hyponatremia: Sodium was 121 on admission. 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 poor oral intake. Urine osmolality on 10/27 was 264 with urine sodium of 60, indicating SIADH vs. hypothyroidism. Given his elevated TSH, we are going with hypothyroidism, though he does report drinking a lot of fluids at his alf, so he may have some aspect of polydipsia as well (though you would think he'd have low urine osms if that was the case.) - Water restriction - Hypothroidism treated as below - As of 10/29, improving slowly to 128 (2) Hypothyroid: TSH in 07/2018 was 1.4; on admission it was 7.3. FT4 was 1.08, so low, but not significantly so. - Started on levothyroxine 50 mcg PO daily - Recheck TSH and FT4 in 1 month (3) Cough: Has productive cough, though no fever, leukocytosis, shortness of breath, or other vitals to indicate infection. - Aspiration precautions - Follow cough, consider CXR if any signs of pneumonia (4) Generalized weakness: Potential reasons including that of hyponatremia, uncorrected hypothyroidism, anemia, and infection. 1) Hyponatremia - Workup as above 2) Uncorrected hypothyroidism - Started levothyroxine 50 mcg PO daily 3) Anemia - Hgb baseline ~10; near baseline. Monitor for bleeding 4) Infection - UA normal on admission. Negative procalcitonin. Normal vital signs and white count. Infection therefore unlikely. Will follow up and also get PT/OT to see him. (5) Schizophrenia: Seen by psychiatry during prior admission with recs to continue his home clozapine. However, at that time, they agreed with holding his benztropine as he wasn't having any EPS symptoms. - Continue clozapine - Hold benztropine - He seems to improve without this; I do wonder if this is causing some of his sedation and confusion. Would stop this on discharge. (6) Dislocation of shoulder: Reduced by ED physician Dr. Roberson in the ED. - Continue acetaminophen & hydrocodone/acetaminophen PRN (7) Seizure disorder: Valproic acid level drawn in the ED and was within prior baselines. - Continue divalproex (8) BPH (benign prostatic hyperplasia): No suggestion of UTI on urinalysis. - Continue finasteride and tamsulosin (9) GERD (gastroesophageal reflux disease): Continue pantoprazole 40 mg daily (10) DVT prophylaxis: Low VTE risk - SCDs Dispo: Probably home tomorrow if sodium corrects past 130. Subjective 68yo M w/ hx of schizophrenia who presents with 1 week of lethargy and increased confusion. This morning, he is still a bit more alert. Reports some productive cough, but no fevers or chills. No shortness of breath. Reports no fevers/chills, chest pain, shortness of breath, abdominal pain, nausea, or vomiting. Physical Exam 2 Vital Signs (Past 24 Hours): Last Vital Signs Temp 36.4 C L 10/29/18 07:23 Pulse 83 10/29/18 07:23 Resp 16 10/29/18 07:23 BP 135/74 10/29/18 07:23 Pulse Ox 91 10/29/18 07:23 Constitutional: WD/WN, vitals as above + cachectic, + frail appearing, + disheveled and cooperative; no acute distress Eyes: EOM intact bilaterally; no conjunctival abnormality ENMT: external ear and nose normal, oropharynx normal Neck: trachea midline, no thyromegaly normal visual inspection Respiratory: normal respiratory effort, lungs clear to auscultation + cough (With green mucus); no respiratory distress Cardiovascular: RRR, no murmur, no edema Gastrointestinal (Abdomen): Inspection/Auscultation: abdomen normal to inspection; abdomen not distended Musculoskeletal: no cyanosis or clubbing, extremities motor strength 5/5 Skin: no rashes, warm and dry Neurologic: moves all extremities and awake Psychiatric: Orientation: alert, oriented to person and cooperative _ (1) Hypothyroid Hypothyroidism type: acquired Qualified Code(s): E03.9 - Hypothyroidism, unspecified (2) Schizophrenia Schizophrenia type: unspecified Qualified Code(s): F20.9 - Schizophrenia, unspecified (3) Dislocation of shoulder Encounter type: initial encounter Laterality: right Qualified Code(s): S43.004A - Unspecified dislocation of right shoulder joint, initial encounter (4) BPH (benign prostatic hyperplasia) Lower urinary tract symptom presence: symptoms absent Lower urinary tract symptom detail: Qualified Code(s): N40.0 - Benign prostatic hyperplasia without lower urinary tract symptoms (5) GERD (gastroesophageal reflux disease) Esophagitis presence: esophagitis presence not specified Qualified Code(s): K21.9 - Gastro-esophageal reflux disease without esophagitis
[2018-10-29] MEDS: TAMSULOSIN HCL 0.4 MG CAP PO SCH (19:08)
[2018-10-29] MEDS: FINASTERIDE 5 MG TAB PO SCH (20:36)
[2018-10-29] MEDS: cloZAPine 100 MG TAB PO SCH (20:37)
[2018-10-30] MEDS: LEVOTHYROXINE SODIUM 50 MCG TABLET PO SCH (05:28)
[2018-10-30 06:23] LABS: Hemoglobin 9.4 g/dL (14.0-18.0); Mean Corpuscular Hgb Conc 31.3 g/dL (32-36); Mean Corpuscular Volume 88.5 fL (80-100); Mean Platelet Volume 8.3 fL (7.4-10.4); Platelet Count 199 K/uL (130-400); RDW Coefficient of Variation 14.1 % (11.5-14.5); RDW Standard Deviation 45.5 fL (36.4-46.3); Red Blood Count 3.39 M/uL (4.7-6.1); White Blood Count 13.22 K/uL (4.8-10.8)
[2018-10-30 06:59] LABS: BUN Creatinine Ratio 14.7 (10-20); Calcium 8.8 mg/dl (8.5-10.1); Creatinine Clr Calc Pharmacy 101.8 ml/min; Est GFR (African American) 110.2; Est GFR (Non-African American) 95.1; Magnesium 1.8 mg/dl (1.8-2.4); Potassium 4.7 mmol/L (3.5-5.1)
--- NOTE | 2018-10-30 08:16 | Hospitalist Progress Note ---
Date of Service October 30, 2018 Assessment & Plan (1) Hyponatremia: Sodium was 121 on admission. , thought to be SIADH. Urine osmolality on was 264 with urine sodium of 60, indicating SIADH concern also influenced by his hypothyroidism, though he does report drinking a lot of fluids at his [facility], sodium remains 128 so we will tighten up his fluid restriction - Hypothroidism treated as below - (2) Hypothyroid: TSH in 07/2018 was 1.4; on admission it was 7.3. FT4 was 1.08, so low, but not significantly so. - Started on levothyroxine 50 mcg PO daily -Recommend recheck TSH and FT4 in 1 month (3) Cough: Has productive cough, though no fever, leukocytosis, shortness of breath - Aspiration precautions -Cough is improved 10/30 (4) Generalized weakness: Potential reasons including that of hyponatremia, uncorrected hypothyroidism, anemia, and infection. 1) Hyponatremia - Workup as above 2) Uncorrected hypothyroidism - Started levothyroxine 50 mcg PO daily 3) Anemia - Hgb baseline ~10; near baseline. Monitor for bleeding 4) Infection - UA normal on admission. Negative procalcitonin. Normal vital signs and white count. Infection therefore unlikely 5) he is on many psychiatric medications he is may be affecting his lethargy valproic acid level checked on the is normal PT/OT to see him. (5) Schizophrenia: Seen by psychiatry during prior admission with recs to continue his home clozapine. However, at that time, they agreed with holding his benztropine as he wasn't having any EPS symptoms. - Continue clozapine - Hold benztropine - He seems to improve without this; concern this is causing some of his sedation and confusion. Would recommend stopping this on discharge. (6) Dislocation of shoulder: Reduced by ED physician Dr. Roberson in the ED. - Continue acetaminophen & hydrocodone/acetaminophen PRN complains of pain in the shoulder at this time (7) Seizure disorder: Valproic acid level drawn in the ED and was within prior baselines. - Continue divalproex (8) BPH (benign prostatic hyperplasia): No suggestion of UTI on urinalysis. - Continue finasteride and tamsulosin (9) GERD (gastroesophageal reflux disease): Continue pantoprazole 40 mg daily (10) DVT prophylaxis: Low VTE risk - SCDs Dispo: Probably home Subjective 68yo M w/ hx of schizophrenia who presents with 1 week of lethargy and increased confusion. This morning, he is awake he has some questions he mumbles a bit he says he is not no focal complaints or problems. His sodium is still low and I informed her that we will need to be keeping him in the hospital until it gets more in the 130 range Review of Systems ROS: well nourished well developed. Denies double vision blurry vision He is having some mumbling No palpitations, chest pain or pressure No Wheezing or breathing issues No abdominal pain nausea vomiting diarrhea No burning urine urine frequency or changes in color No focal joint pain or muscle pain No skin rashes or oral lesions No unusual bruising or bleeding No focused back pain or numbness or loss of strength Physical Exam 2 Vital Signs (Past 24 Hours): Last Vital Signs Temp 36.7 C 10/30/18 07:34 Pulse 88 10/30/18 07:34 Resp 18 10/30/18 07:34 BP 112/73 10/30/18 07:34 Pulse Ox 91 10/30/18 07:34 The patient appeared well nourished and normally developed is drooling slightly and slightly sedate. Vital signs as documented. Head exam is normocephalic atraumatic Neck is without jugular venous distension, thyromegaly, or lymphademopathy Lungs are clear to auscultation but decreased effort decreased breath sounds at the bases Cardiac exam reveals Rhythm is regular. First and second heart sounds normal. No murmurs Abdominal exam reveals normal bowel sounds, no masses, no organomegaly Extremities are nonedematous and both pedal pulses are normal. Neurologic exam is awake and conversant although mumbling at times, no focal deficits, strength is equal bilateral but he seems weak overall Skin is warm Dry without bruises or lesions _ (1) BPH (benign prostatic hyperplasia) Lower urinary tract symptom detail: Lower urinary tract symptom presence: symptoms absent Qualified Code(s): N40.0 - Benign prostatic hyperplasia without lower urinary tract symptoms (2) Hypothyroid Hypothyroidism type: acquired Qualified Code(s): E03.9 - Hypothyroidism, unspecified (3) Schizophrenia Schizophrenia type: unspecified Qualified Code(s): F20.9 - Schizophrenia, unspecified (4) Dislocation of shoulder Encounter type: initial encounter Laterality: right Qualified Code(s): S43.004A - Unspecified dislocation of right shoulder joint, initial encounter (5) GERD (gastroesophageal reflux disease) Esophagitis presence: esophagitis presence not specified Qualified Code(s): K21.9 - Gastro-esophageal reflux disease without esophagitis
[2018-10-30] MEDS: CHOLECALCIFEROL 1,000 UNITS TAB PO SCH (08:22)
[2018-10-30] MEDS: DIVALPROEX DELAY RELEASE 250 MG TABEC PO SCH ×2 (08:22→20:09)
[2018-10-30] MEDS: ASPIRIN 81 MG ECTAB PO SCH (08:22)
[2018-10-30] MEDS: CYANOCOBALAMIN 500 MCG TABLET (VITAMIN B-12) PO SCH (08:22)
[2018-10-30] MEDS: DIVALPROEX DELAY RELEASE 125 MG TABEC PO SCH ×2 (08:22→20:08)
[2018-10-30] MEDS: METOPROLOL SUCC 50MG EXT REL TAB PO SCH (08:23)
[2018-10-30] MEDS: HYDROCODONE/ACETAMINOPHEN 7.5/325MG TAB PO SCH ×3 (08:25→20:06)
[2018-10-30] MEDS: cloZAPine 100 MG TAB PO SCH (20:07)
[2018-10-30] MEDS: FINASTERIDE 5 MG TAB PO SCH (20:07)
[2018-10-30] MEDS: TAMSULOSIN HCL 0.4 MG CAP PO SCH (20:09)
[2018-10-31] MEDS: LEVOTHYROXINE SODIUM 50 MCG TABLET PO SCH (06:20)
[2018-10-31] MEDS: METOPROLOL SUCC 50MG EXT REL TAB PO SCH (08:39)
[2018-10-31] MEDS: CHOLECALCIFEROL 1,000 UNITS TAB PO SCH (08:40)
[2018-10-31] MEDS: DIVALPROEX DELAY RELEASE 125 MG TABEC PO SCH ×2 (08:40→20:29)
[2018-10-31] MEDS: ASPIRIN 81 MG ECTAB PO SCH (08:41)
[2018-10-31] MEDS: DIVALPROEX DELAY RELEASE 250 MG TABEC PO SCH ×2 (08:41→20:29)
[2018-10-31] MEDS: HYDROCODONE/ACETAMINOPHEN 7.5/325MG TAB PO SCH ×2 (08:42→09:39)
[2018-10-31 09:27] LABS: Hematocrit (blood only) 30.1 % (42-52); Hemoglobin 9.6 g/dL (14.0-18.0); Mean Corpuscular Hgb Conc 31.9 g/dL (32-36); Mean Corpuscular Volume 89.3 fL (80-100); Mean Platelet Volume 8.4 fL (7.4-10.4); Platelet Count 188 K/uL (130-400); RDW Coefficient of Variation 14.4 % (11.5-14.5); RDW Standard Deviation 46.9 fL (36.4-46.3); Red Blood Count 3.37 M/uL (4.7-6.1); White Blood Count 10.66 K/uL (4.8-10.8)
[2018-10-31 09:51] LABS: Basophils # (auto) 0.04 K/uL (0-0.2); Basophils % (auto) 0.4 %; Eosinophils # (auto) 0.42 K/uL (0-0.5); Eosinophils % (auto) 3.9 %; Immature Granulocytes % (auto) 6.6 %; Lymphocytes # (auto) 1.76 K/uL (1.2-3.4); Lymphocytes % (auto) 16.5 %; Monocytes # (auto) 1.14 K/uL (0.11-0.59); Monocytes % (auto) 10.7 %; Neutrophils % (auto) 61.9 %
[2018-10-31 10:03] LABS: BUN Creatinine Ratio 16.4 (10-20); Calcium 8.7 mg/dl (8.5-10.1); Creatinine Clr Calc Pharmacy 84.5 ml/min; Est GFR (African American) 100.1; Est GFR (Non-African American) 86.4; Potassium 4.4 mmol/L (3.5-5.1)
[2018-10-31] MEDS: HYDROCODONE/ACETAMINOPHEN 7.5/325MG TAB PO PRN ×2 (11:15→16:15)
--- NOTE | 2018-10-31 13:36 | Hospitalist Progress Note ---
Date of Service October 31, 2018 Assessment & Plan (1) Hyponatremia: Sodium was 121 on admission. , thought to be SIADH. Urine osmolality on was 264 with urine sodium of 60, indicating SIADH. Also found his TSH to be elevated. Sodium remained at 128 x 2 days and after fluid restriction tightened, it improved today to 130. SIADH most likely moreso from his chronic lung infection with SOLANGE. SOLANGE is not going to be treated. Will likely be difficult to get him to stick to a fluid restriction given intellectual disability and schizoaffective disorder, lives in senior living setting, however will attempt to do so. Continue fluid restriction of 1500 mLs/abebe -add on NACl tabs 1 gm po bid - Hypothroidism treated as below -follow BMP (2) Hypothyroid: TSH in 07/2018 was 1.4; on admission it was 7.3. FT4 was 1.08, so low, but not significantly so. - Started on levothyroxine 50 mcg PO daily -Recommend recheck TSH and FT4 in 1 month (3) Cough: Has productive cough, though no fever, with mild leukocytosis, shortness of breath Likely secondary to his ongoing SOLANGE infection -appreciate Pulm consult -no treatment will be pursued for SOLANGE -follows with ID as outpt (4) Generalized weakness: Potential reasons including that of hyponatremia, uncorrected hypothyroidism, anemia, and infection. Hyponatremia - Workup as above Uncorrected hypothyroidism - Started levothyroxine 50 mcg PO daily Anemia - Hgb baseline ~10; near baseline. Monitor for bleeding Infection - UA normal on admission. Negative procalcitonin. Afebrile, with chornic SOLANGE infection as above he is on many psychiatric medications he is may be affecting his lethargy valproic acid level checked on the is normal -also was on tid hydrocodone---> made this prn today instead of scheduled PT/OT to see him but each time they come, he has been too sedated to participate (5) Dislocation of shoulder: Reduced by ED physician Dr. Roberson in the ED several days prior to admission. - Continue acetaminophen & hydrocodone/acetaminophen--> change to PRN (6) Seizure disorder: Valproic acid level drawn in the ED and was within prior baselines. - Continue divalproex (7) BPH (benign prostatic hyperplasia): No suggestion of UTI on urinalysis. - Continue finasteride and tamsulosin (8) GERD (gastroesophageal reflux disease): Continue pantoprazole 40 mg daily (9) Chronic diastolic CHF (congestive heart failure): no evidence of volume overload -control BP (10) Schizoaffective disorder: Seen by psychiatry during prior admission with recs to continue his home clozapine. However, at that time, they agreed with holding his benztropine as he wasn't having any EPS symptoms. - Continue clozapine - Hold benztropine - He seems to improve without this; concern this is causing some of his sedation and confusion. Would recommend stopping this on discharge. 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 Since receiving [place], he has been more somnolent again. Review of previous scanned in Psych records reveal his speech is typically soft and at times uninterpretable like today I honestly cannot make out a word he has to say to me, but it seems like he is having a normal conversation with me. Very soft spoken Review of Systems All systems reviewed & are unremarkable except as noted in HPI & below Physical Exam 2 Vital Signs (Past 24 Hours): Last Vital Signs Temp 36.5 C 10/31/18 08:05 Pulse 87 10/31/18 08:05 Resp 16 10/31/18 08:05 BP 116/72 10/31/18 08:05 Pulse Ox 94 10/31/18 08:05 Constitutional: WD/WN, vitals as above Eyes: PERRL, conjunctivae normal, anicteric sclerae ENMT: external ear and nose normal, oropharynx normal Neck: trachea midline, no thyromegaly Respiratory: normal respiratory effort, lungs clear to auscultation Cardiovascular: RRR, no murmur, no edema Gastrointestinal (Abdomen): normal bowel sounds, soft, nontender, no hepatosplenomegaly Musculoskeletal: Extremities: extremities normal to inspection; no cyanosis and no clubbing Skin: no rashes, warm and dry Neurologic: moves all extremities and awake; no focal motor deficits Psychiatric: Orientation: alert (but drowsy at times) Eye Contact: + fair eye contact Motor Behavior: n tremor Speech: + abnormal rate/rhythm/ volume of speech (very soft spoken, unintelligible speech) Affect: + flat affect Results & Data Laboratory Results WBC 10, Hgb 9.6 Na+ 130 _ (1) BPH (benign prostatic hyperplasia) Lower urinary tract symptom detail: Lower urinary tract symptom presence: symptoms absent Qualified Code(s): N40.0 - Benign prostatic hyperplasia without lower urinary tract symptoms (2) Hypothyroid Hypothyroidism type: acquired Qualified Code(s): E03.9 - Hypothyroidism, unspecified (3) Dislocation of shoulder Encounter type: initial encounter Laterality: right Qualified Code(s): S43.004A - Unspecified dislocation of right shoulder joint, initial encounter (4) GERD (gastroesophageal reflux disease) Esophagitis presence: esophagitis presence not specified Qualified Code(s): K21.9 - Gastro-esophageal reflux disease without esophagitis
--- NOTE | 2018-10-31 15:20 | Pulmonary Consultation ---
Date of Consultation October 31, 2018 Assessment & Plan (1) Aspiration pneumonia: Impression: 1. Chronic aspiration, unfortunately, related to his multiple psych medications as well as his psych history in addition to his frequent lethargy caused by his medications as well which both place the patient at risk for aspiration as well. 2. Possible SIADH as a cause of his hyponatremia due to his lung disease, I am suspicious about his psych medications whether it can affect his ADH level. 3. 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 4. 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 5. 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 Plan: 1. Agree with your current management. 2. I will hold off on the treatment of MAC given his condition. 3. Consideration to alter his medications to avoid chronic aspiration, could help, but the patient already developed pulmonary fibrotic changes. Thank you for the kind referral, will follow as needed. History of Present Illness Reason for Consultation: Abnormal findings on sputum culture recently. Requesting Physician: Dr. Lerner Attending Physician: Lorie Lerner MD History of Present Illness Dear Dr. Lerner: Thank you for the kind referral Mr. Pulido to pulmonary service. This is 68- year-old gentleman known to me from the past with history of severe tracheal bronchomalacia, chronic aspiration, altered mental status related to his psych disorder as well as his medications, mostly bedridden, underwent a bronchoscopy by me on the last admission which showed SOLANGE moderate growth. Could not speciate the pathogen. The patient admitted to the hospital this time with lethargy and generalized weakness, the patient was found to have hyponatremia with hypovolemia and responded to IV fluid. The patient did have also what appeared to be SIADH, workup still in progress. The patient was admitted to the hospital and I was asked to evaluate him due to the findings on recent bronchoscopy. The patient is poor historian, could not give any history, review of system was unremarkable and him but he could not give a reliable review of system. Social history of past medical history as well as family history is also not obtainable. He does have a guardian which I spoke to on previous admission. Recent bronchoscopy was done by me which showed severe tracheal bronchomalacia, tortuous trachea, secretions were piling in multiple parts of the lung mainly in the left lower and left upper lobe. It was sent for cultures and showed MAC , sensitivity is not done. The patient was not started on treatment, and the treatment likely will commit the patient for triple antibiotics for at least 2- 5 years. The patient given his schizophrenia psych history, may not be compliant, and multiple of his medications could interfere with macrolides and quinolone which are the mainstay treatment for SOLANGE. Overall, the patient denies any cough or shortness of breath, denies any sputum production, appears lethargic, no change since last admission a month ago. Allergies Allergy/AdvReac Type Severity Reaction Status Date / Time diltiazem Allergy Unknown rash and Verified 08/30/18 12:39 edema Home Medications Home Medications Medication Instructions Recorded Confirmed Type acetaminophen 500 mg PO Q6H PRN 08/30/18 10/26/18 History aspirin 81 mg PO DAILY 08/30/18 10/26/18 History benztropine 0.5 mg PO DAILY 08/30/18 10/26/18 History cholecalciferol (vitamin D3) 2,000 unit PO DAILY 08/30/18 10/26/18 History [Vitamin D3] clozapine 300 mg PO HS 08/30/18 10/26/18 History cyanocobalamin-cobamamide [B12] 1,000 mg SUBLINGUAL 2XWK 08/30/18 10/26/18 History divalproex [Depakote] 125 mg PO BID 08/30/18 10/26/18 History divalproex [Depakote] 250 mg PO BID 08/30/18 10/26/18 History finasteride 5 mg PO DAILY 08/30/18 10/26/18 History hydrocodone-acetaminophen 1 tab PO TID 08/30/18 10/26/18 History magnesium hydroxide [Milk of 2 tbsp PO HS PRN 08/30/18 10/26/18 History Magnesia] metoprolol succinate 50 mg PO DAILY 08/30/18 10/26/18 History mometasone [Asmanex Twisthaler] 1 inh INHALATION QPM 08/30/18 10/26/18 History phenazopyridine 200 mg PO TID PRN 08/30/18 10/26/18 History polyethylene glycol 1450(bulk) 17 g MISCELLANEOUS DIRECTED 08/30/18 10/26/18 History [Polyglycol Shaggy Base] ranitidine HCl [Zantac 75] 75 mg PO BID PRN 08/30/18 10/26/18 History tamsulosin 0.4 mg PO DAILY 08/30/18 10/26/18 History ipratropium-albuterol 3 ml NEB Q4H PRN #30 ml 09/08/18 10/26/18 Rx Patient History Medical History Aspiration pneumonia Anemia (Acute) Acute hyponatremia (Acute) DVT prophylaxis Sepsis Hypertension GERD (gastroesophageal reflux disease) BPH (benign prostatic hyperplasia) Seizure disorder Acute respiratory failure with hypoxia Pneumonia (Acute) Abnormal chest CT (Acute) Anemia (Acute) Diabetes mellitus (Chronic 01/08/13) Hyperammonemia Hyperkalemia, diminished renal excretion Hyponatremia (Acute) Schizophrenia (Chronic 01/08/13) Social History marital status: Current Living Situation: Personal Care Facility Current Living Situation Comment: [facility] current occupational status: retired Other Information That Helps Us Care for You: No Feels Safe at Home: Yes Safety Concerns: Feels Safe At This Time Smoking Status: Former smoker Do You Dip or Chew Tobacco: No Second Hand Exposure: No Tobacco Cessation Education Requested by Patient: No Hx Alcohol Use: No Hx Substance Use: No Beliefs That Will Affect Care: None Communication Ability: Unable Review of Systems Review of system is not reliable, however apart from the above, the 10 systems were reviewed to the best that I can and denies any symptoms except for what is mentioned in the first section. Physical Exam 2 Vital Signs (Past 24 Hours): Last Vital Signs Temp 36.5 C 10/31/18 08:05 Pulse 87 10/31/18 08:05 Resp 16 10/31/18 08:05 BP 116/72 10/31/18 08:05 Pulse Ox 94 10/31/18 08:05 Physical Exam: Physical exam revealed stable vital signs, O2 saturation is 95 % on room air, no JVD, rhonchi bilaterally, S1-S2 regular rate and rhythm, diminished breath sounds at the right base, abdomen is benign, no edema. Results & Data Laboratory Results Labs were reviewed which showed leukocytosis fluctuating during this admission, sodium is improving, previous workup for tuberculosis showed negative T spot. Bronchoscopy specimen showed MAC without sensitivity. Diagnostic Findings Chest x-ray showed chronic changes, previous CAT scan showed honeycombing mainly in the lower part consistent with pulmonary fibrosis.
[2018-10-31] MEDS: TAMSULOSIN HCL 0.4 MG CAP PO SCH (20:29)
[2018-10-31] MEDS: cloZAPine 100 MG TAB PO SCH (20:30)
[2018-10-31] MEDS: FINASTERIDE 5 MG TAB PO SCH (20:30)
[2018-11-01 06:54] LABS: BUN Creatinine Ratio 20.5 (10-20); Calcium 8.7 mg/dl (8.5-10.1); Creatinine Clr Calc Pharmacy 108.7 ml/min; Est GFR (African American) 112.7; Est GFR (Non-African American) 97.2; Potassium 4.8 mmol/L (3.5-5.1)
[2018-11-01 07:13] LABS: Hematocrit (blood only) 27.7 % (42-52); Hemoglobin 8.9 g/dL (14.0-18.0); Mean Corpuscular Hgb Conc 32.1 g/dL (32-36); Mean Corpuscular Volume 89.1 fL (80-100); Mean Platelet Volume 8.4 fL (7.4-10.4); Platelet Count 211 K/uL (130-400); RDW Coefficient of Variation 14.4 % (11.5-14.5); Red Blood Count 3.11 M/uL (4.7-6.1); White Blood Count 11.57 K/uL (4.8-10.8)
[2018-11-01 07:21] LABS: ALC (manual) 1.52 K/uL (1.2-3.4); Basophils % (manual) 0.9 %; Eosinophils # (manual) 0.61 K/uL (0-0.5); Lymphocytes # (manual) 1.11 K/uL (1.2-3.4); Lymphocytes % (manual) 9.6 %; Monocytes # (manual) 1.32 K/uL (0.11-0.59); Monocytes % (manual) 11.4 %; Myelocytes # (manual) 0.81 K/uL (0-0); Neutrophils % (manual) 62.3 %; RBC Morphology Unremarkable
[2018-11-01] MEDS: ASPIRIN 81 MG ECTAB PO SCH (08:25)
[2018-11-01] MEDS: DIVALPROEX DELAY RELEASE 250 MG TABEC PO SCH ×2 (08:25→20:42)
[2018-11-01] MEDS: CHOLECALCIFEROL 1,000 UNITS TAB PO SCH (08:25)
[2018-11-01] MEDS: DIVALPROEX DELAY RELEASE 125 MG TABEC PO SCH ×2 (08:25→20:42)
[2018-11-01] MEDS: LEVOTHYROXINE SODIUM 50 MCG TABLET PO SCH (08:26)
[2018-11-01] MEDS: METOPROLOL SUCC 50MG EXT REL TAB PO SCH (08:26)
[2018-11-01] MEDS: SODIUM CHLORIDE 1 GM TABLET PO SCH ×2 (08:27→20:44)
[2018-11-01 10:15] LABS: Ferritin 82.9 ng/ml (8-388)
[2018-11-01 10:36] LABS: Folate (Folic Acid) 8.85 ng/ml (>5.38)
[2018-11-01] MEDS: FUROSEMIDE 20 MG TAB PO SCH (11:31)
[2018-11-01] MEDS: ENOXAPARIN INJ 40 MG/0.4 ML SYR SQ SCH (11:31)
--- NOTE | 2018-11-01 13:18 | Hospitalist Progress Note ---
Date of Service November 01, 2018 Assessment & Plan (1) Hyponatremia: Na 121 at admission. Improved with Rx of SIADH. 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 Continue fluid restriction of 1500cc daily. Continue NaCL tabs. Add lasix 20mg po daily as well BMP in am. Present on Admission?: Yes (2) Hypothyroid: New onset. Started on levothyroxine 50 mcg PO daily this admission. Recheck TSH and FT4 in 4-6 weeks. (3) Cough: Likely due to SOLANGE infection Pulmonary consulted; no Rx recommended at this time repeat cxr today stable (4) Generalized weakness: needs PT/OT and potentially rehab has chronically deformed hips which likely contributes to debilitation (5) Dislocation of shoulder: s/p right shoulder reduction by ED physician Dr. Roberson prior to admission does he need sling immobilization? will check with ortho (6) Seizure disorder: depakote with recent level in range (7) BPH (benign prostatic hyperplasia): finasteride and tamsulosin (8) GERD (gastroesophageal reflux disease): pantoprazole 40 mg daily (9) Chronic diastolic CHF (congestive heart failure): compensated (10) Schizoaffective disorder: cont depakote cont clozapine holding benztropine (11) SOLANGE (mycobacterium avium-intracellulare): no treatment per pulmonary alsoo follows with ID as outpatient (12) DVT prophylaxis: lovenox (13) Constipation: severe on x-ray today dulcolax suppos x 1 now senna daily miralax daily (14) Discharge planning issues: needs to participate with PT, OT to determine if ok to return to [id number] or will he need rehab Subjective patient quite awake/alert during my visit speech is very soft in pitch and thus it is hard to understand but he was oriented x 3 and could answer all questions he c/o cough and constipation a sister apparently was at bedside prior to my arrival and expressed concerns to staff that she felt depakote was causing excess sedation Constitutional: no fever and no chills Respiratory: + cough; no dyspnea and no hemoptysis Cardiovascular: no chest pain Gastrointestinal: + constipation; no abdominal pain, no nausea and no vomiting Physical Exam 2 Vital Signs (Past 24 Hours): Last Vital Signs Temp 36.8 C 11/01/18 07:12 Pulse 82 11/01/18 07:12 Resp 16 11/01/18 07:12 BP 139/70 11/01/18 07:12 Pulse Ox 96 11/01/18 11:44 Constitutional: well developed and well nourished; no acute distress ENMT: external ear and nose normal, oropharynx normal Respiratory: Auscultation: + rales (fairly extensive, right lung posteriorly; cta on left ) Cardiovascular: RRR, no murmur, no edema Heart Sounds: normal S1 and normal S2 Vessels: posterior tibial pulses present and dorsalis pedis pulses present; no JVD Gastrointestinal (Abdomen): normal bowel sounds, soft, nontender, no hepatosplenomegaly Neurologic: speech is soft/low in pitch but clear; the soft, rapid voice makes it hard to understand; he does not have asterixis; he does have a very mild tremor most noticeable with activity Psychiatric: Orientation: alert and oriented x 3 Results & Data Laboratory Results Laboratory Results - last 24 hr 11/01/18 11/01/18 11/01/18 06:16 06:16 09:15 WBC 11.57 H RBC 3.11 L Hgb 8.9 L Hct 27.7 L MCV 89.1 MCH 28.6 MCHC 32.1 RDW Std Deviation 47.0 H RDW Coeff of Nakia 14.4 Plt Count 211 MPV 8.4 Neutrophils % (Manual) 62.3 Lymphocytes % (Manual) 9.6 Reactive Lymphs % (Man) 3.5 Monocytes % (Manual) 11.4 Eosinophils % (Manual) 5.3 Basophils % (Manual) 0.9 Myelocytes % (Man) 7.0 Neutrophils # (Manual) 7.21 H Total Absolute Neuts 7.21 H Lymphocytes # (Manual) 1.11 L Reactive Lymphs # 0.40 Total Abs Lymphocytes 1.52 Monocytes # (Manual) 1.32 H Eosinophils # (Manual) 0.61 H Basophils # (Manual) 0.10 Myelocytes # (Manual) 0.81 H RBC Morphology Unremarkable Sodium 130 L Potassium 4.8 Chloride 98 Carbon Dioxide 28 Anion Gap 4.0 BUN 15 Creatinine 0.72 Est Cr Clr Drug Dosing 108.7 Est GFR ( Amer) 112.7 Est GFR (Non-Af Amer) 97.2 BUN/Creatinine Ratio 20.5 H Glucose 105 H Calcium 8.7 Iron TIBC Transferrin Transferrin % Sat Ferritin Vitamin B12 918 H Folate 8.85 11/01/18 09:33 WBC RBC Hgb Hct MCV MCH MCHC RDW Std Deviation RDW Coeff of Nakia Plt Count MPV Neutrophils % (Manual) Lymphocytes % (Manual) Reactive Lymphs % (Man) Monocytes % (Manual) Eosinophils % (Manual) Basophils % (Manual) Myelocytes % (Man) Neutrophils # (Manual) Total Absolute Neuts Lymphocytes # (Manual) Reactive Lymphs # Total Abs Lymphocytes Monocytes # (Manual) Eosinophils # (Manual) Basophils # (Manual) Myelocytes # (Manual) RBC Morphology Sodium Potassium Chloride Carbon Dioxide Anion Gap BUN Creatinine Est Cr Clr Drug Dosing Est GFR ( Amer) Est GFR (Non-Af Amer) BUN/Creatinine Ratio Glucose Calcium Iron 47 TIBC 325 Transferrin 259 Transferrin % Sat 13 L Ferritin 82.9 Vitamin B12 Folate _ (1) Hypothyroid Hypothyroidism type: acquired Qualified Code(s): E03.9 - Hypothyroidism, unspecified (2) Dislocation of shoulder Encounter type: initial encounter Laterality: right Qualified Code(s): S43.004A - Unspecified dislocation of right shoulder joint, initial encounter (3) BPH (benign prostatic hyperplasia) Lower urinary tract symptom presence: symptoms absent Lower urinary tract symptom detail: Qualified Code(s): N40.0 - Benign prostatic hyperplasia without lower urinary tract symptoms (4) GERD (gastroesophageal reflux disease) Esophagitis presence: esophagitis presence not specified Qualified Code(s): K21.9 - Gastro-esophageal reflux disease without esophagitis (5) Schizoaffective disorder Schizoaffective disorder type: other Qualified Code(s): F25.8 - Other schizoaffective disorders (6) Constipation Constipation type: other constipation type Qualified Code(s): K59.09 - Other constipation
[2018-11-01] MEDS: HYDROCODONE/ACETAMINOPHEN 7.5/325MG TAB PO PRN (13:21)
--- NOTE | 2018-11-01 14:10 | XRay Report ---
XR KUB CLINICAL HISTORY: 68 years-old Male presenting with constipation; please quantitate fecal load. TECHNIQUE: Single supine view of the abdomen was obtained. COMPARISON: 07/06/2012. FINDINGS: Marked stool burden throughout the colon most pronounced in the left colon to the rectum. Nonobstruct hanh bowel gas pattern. No gross pneumoperitoneum. Allowing for bowel gas and stool, no calcifications to suggest nephrolithiasis. Chronic deformities of the bilateral hip joints. Degenerative changes of the spine. IMPRESSION: 1. Marked stool burden throughout the colon most pronounced in the left colon to the level of rectum . This is consistent with severe constipation. Electronically signed by: Darien Castillo M.D. 11/01/2018 2:09 PM
--- NOTE | 2018-11-01 14:16 | XRay Report ---
TWO VIEW CHEST CLINICAL HISTORY: Cough. FINDINGS: AP and lateral chest radiographs are compared to study dated 10/26/2018 and correlated with chest CT dated 10/13/2018. The AP view is degraded by patient rotation. The heart is enlarged and th ere is atherosclerotic calcification of the thoracic aorta. The pulmonary vasculature is noncongested . Changes of chronic interstitial lung disease are again noted. Confluent airspace opacities are agai n seen in the upper lobes, right greater than left. No pleural effusion is identified. There is no pn eumothorax. The skeletal structures are osteopenic. There is chronic posttraumatic deformity of the l eft clavicle. Degenerative change is seen throughout the thoracic spine. Scattered metallic foreign b odies are again seen in the left shoulder and the left lower chest. A metallic foreign body projects over the left upper quadrant of the abdomen. IMPRESSION: 1. Cardiomegaly and chronic lung disease. 2. There has been no significant change from 10/26/2018. Conclusion airspace opacities in the upper l obes persists. Electronically signed by: Faustino Smallwood M.D. 11/01/2018 2:14 PM
[2018-11-01] MEDS ORDERED: BISACODYL 10 MG SUPP PR STA (15:11)
[2018-11-01] MEDS: SENNA 8.6 MG TAB PO SCH (16:10)
[2018-11-01] MEDS: FINASTERIDE 5 MG TAB PO SCH (20:42)
[2018-11-01] MEDS: TAMSULOSIN HCL 0.4 MG CAP PO SCH (20:43)
[2018-11-01] MEDS: FERROUS SULFATE 325 MG TAB PO SCH (20:43)
[2018-11-01] MEDS: cloZAPine 100 MG TAB PO SCH (20:43)
[2018-11-02] MEDS: HYDROCODONE/ACETAMINOPHEN 7.5/325MG TAB PO PRN ×2 (00:33→08:29)
[2018-11-02] MEDS: LEVOTHYROXINE SODIUM 50 MCG TABLET PO SCH (06:10)
[2018-11-02 06:16] LABS: Hematocrit (blood only) 29.2 % (42-52); Hemoglobin 9.4 g/dL (14.0-18.0); Mean Corpuscular Hgb Conc 32.2 g/dL (32-36); Mean Corpuscular Volume 90.1 fL (80-100); Mean Platelet Volume 8.4 fL (7.4-10.4); Platelet Count 200 K/uL (130-400); RDW Coefficient of Variation 14.3 % (11.5-14.5); RDW Standard Deviation 47.2 fL (36.4-46.3); Red Blood Count 3.24 M/uL (4.7-6.1); White Blood Count 9.02 K/uL (4.8-10.8)
[2018-11-02 06:51] LABS: Creatinine Clr Calc Pharmacy 94.3 ml/min; Est GFR (African American) 106.3; Est GFR (Non-African American) 91.7; Potassium 4.3 mmol/L (3.5-5.1)
[2018-11-02 07:17] LABS: Basophils # (auto) 0.07 K/uL (0-0.2); Basophils % (auto) 0.8 %; Echinocytes 1+; Eosinophils # (auto) 0.49 K/uL (0-0.5); Eosinophils % (auto) 5.4 %; Immature Granulocytes % (auto) 7.8 %; Lymphocytes # (auto) 1.45 K/uL (1.2-3.4); Lymphocytes % (auto) 16.1 %; Monocytes # (auto) 1.21 K/uL (0.11-0.59); Monocytes % (auto) 13.4 %; Neutrophils % (auto) 56.5 %
[2018-11-02] MEDS: METOPROLOL SUCC 50MG EXT REL TAB PO SCH (08:23)
[2018-11-02] MEDS: CHOLECALCIFEROL 1,000 UNITS TAB PO SCH (08:23)
[2018-11-02] MEDS: SENNA 8.6 MG TAB PO SCH (08:24)
[2018-11-02] MEDS: DIVALPROEX DELAY RELEASE 250 MG TABEC PO SCH ×2 (08:24→20:29)
[2018-11-02] MEDS: FUROSEMIDE 20 MG TAB PO SCH (08:24)
[2018-11-02] MEDS: DIVALPROEX DELAY RELEASE 125 MG TABEC PO SCH ×2 (08:25→20:28)
[2018-11-02] MEDS: SODIUM CHLORIDE 1 GM TABLET PO SCH ×2 (08:25→20:30)
[2018-11-02] MEDS: FERROUS SULFATE 325 MG TAB PO SCH ×2 (08:25→20:31)
[2018-11-02] MEDS: ASPIRIN 81 MG ECTAB PO SCH (08:25)
[2018-11-02] MEDS: ENOXAPARIN INJ 40 MG/0.4 ML SYR SQ SCH (08:26)
[2018-11-02] MEDS: POLYETHYLENE (MIRALAX) 17 GM PACK PO SCH ×2 (09:52→20:29)
[2018-11-02] MEDS ORDERED: SOD PHOSPHATE/SOD BIPHOSPHATE ENEMA 132 ML BTL PR STA (16:03)
--- NOTE | 2018-11-02 20:22 | Hospitalist Progress Note ---
Date of Service November 02, 2018 Assessment & Plan (1) Metabolic encephalopathy: resolved. was likely due to significant hyponatremia. Mental status is at baseline. (2) Hyponatremia: Na 121 at admission. Improved with Rx of SIADH. 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 Continue fluid restriction of 1500cc daily. Continue NaCL tabs. Added lasix 20mg po daily as well BMP in am. (3) Hypothyroid: New onset. Started on levothyroxine 50 mcg PO daily this admission. Recheck TSH and FT4 in 4-6 weeks. (4) Cough: Likely due to SOLANGE infection Pulmonary consulted; no Rx recommended at this time repeat cxr this admission stable. he will need to f/u with ID and pulmonary post-discharge. the belief is that he would not tolerate SOLANGE Rx. (5) Generalized weakness: needs PT/OT after d/c has chronically deformed hips which likely contributes to debilitation (6) Dislocation of shoulder: s/p right shoulder reduction by ED physician Dr. Roberson prior to admission needs sling for at least 2 weeks. f/u with orthopedics in the clinic 2 weeks post-d/c. (7) Seizure disorder: depakote with recent level in range (8) BPH (benign prostatic hyperplasia): finasteride and tamsulosin no LUTS (9) GERD (gastroesophageal reflux disease): pantoprazole 40 mg daily (10) Chronic diastolic CHF (congestive heart failure): compensated (11) Schizoaffective disorder: cont depakote cont clozapine holding benztropine (12) SOLANGE (mycobacterium avium-intracellulare): no treatment per pulmonary also follows with ID as outpatient see discussion above in "cough" (13) DVT prophylaxis: lovenox (14) Constipation: severe on x-rays aggressive bowel regimen fleets x 1 today as well due to immobility, etc (15) Discharge planning issues: best option for him is [facility] I believe his quality of life will be worse in a SNF Saniya Javier placed a call to his [facility] asking for the [facility] director to come to hospital, meet with patient, and determine disposition patient refuses to work with PT, OT at this time as well Subjective no issues overnight still no bowel movement despite bowel regimen patient awake, alert during the visit he told myself and the nursing staff he didn't want to return to [facility], stating "they make me walk too much" he desires to go to a SNF where his meals will be delivered to him and he is not forced to walk no new complaints Constitutional: no fever Respiratory: no cough and no dyspnea Cardiovascular: no chest pain Gastrointestinal: no abdominal pain Physical Exam 2 Vital Signs (Past 24 Hours): Last Vital Signs Temp 36.6 C 11/02/18 15:00 Pulse 80 11/02/18 15:00 Resp 18 11/02/18 15:00 BP 103/67 11/02/18 15:00 Pulse Ox 98 11/02/18 15:00 Constitutional: well developed and well nourished; no acute distress ENMT: external ear and nose normal, oropharynx normal Respiratory: no respiratory distress and no labored breathing Auscultation : + rales (right lung only; clear on left ); breath sounds present, no diminished lung sounds, no rhonchi and no wheezes Cardiovascular: RRR, no murmur, no edema Heart Sounds: normal S1 and normal S2 Vessels: posterior tibial pulses present and dorsalis pedis pulses present; no JVD Gastrointestinal (Abdomen): normal bowel sounds, soft, nontender, no hepatosplenomegaly Neurologic: speech - mumbles, difficult to understand at times (this is baseline for him) Psychiatric: Orientation: alert and oriented x 3 Results & Data Laboratory Results Laboratory Results - last 24 hr 11/02/18 11/02/18 06:01 06:01 WBC 9.02 RBC 3.24 L Hgb 9.4 L Hct 29.2 L MCV 90.1 MCH 29.0 MCHC 32.2 RDW Std Deviation 47.2 H RDW Coeff of Nakia 14.3 Plt Count 200 MPV 8.4 Immature Gran % (Auto) 7.8 Neut % (Auto) 56.5 Lymph % (Auto) 16.1 Elliott % (Auto) 13.4 Eos % (Auto) 5.4 Baso % (Auto) 0.8 Immature Gran # (Auto) 0.70 H Neut # (Auto) 5.10 Lymph # (Auto) 1.45 Elliott # (Auto) 1.21 H Eos # (Auto) 0.49 Baso # (Auto) 0.07 Echinocytes 1+ Sodium 131 L Potassium 4.3 Chloride 97 L Carbon Dioxide 27 Anion Gap 7.0 BUN 20 H Creatinine 0.83 Est Cr Clr Drug Dosing 94.3 Est GFR ( Amer) 106.3 Est GFR (Non-Af Amer) 91.7 BUN/Creatinine Ratio 24.0 H Glucose 94 Calcium 9.0 _ (1) BPH (benign prostatic hyperplasia) Lower urinary tract symptom detail: Lower urinary tract symptom presence: symptoms absent Qualified Code(s): N40.0 - Benign prostatic hyperplasia without lower urinary tract symptoms (2) Hypothyroid Hypothyroidism type: acquired Qualified Code(s): E03.9 - Hypothyroidism, unspecified (3) Schizoaffective disorder Schizoaffective disorder type: other Qualified Code(s): F25.8 - Other schizoaffective disorders (4) Dislocation of shoulder Encounter type: initial encounter Laterality: right Qualified Code(s): S43.004A - Unspecified dislocation of right shoulder joint, initial encounter (5) GERD (gastroesophageal reflux disease) Esophagitis presence: esophagitis presence not specified Qualified Code(s): K21.9 - Gastro-esophageal reflux disease without esophagitis (6) Constipation Constipation type: other constipation type Qualified Code(s): K59.09 - Other constipation
[2018-11-02] MEDS: TAMSULOSIN HCL 0.4 MG CAP PO SCH (20:31)
[2018-11-02] MEDS: cloZAPine 100 MG TAB PO SCH (20:33)
[2018-11-02] MEDS: FINASTERIDE 5 MG TAB PO SCH (20:33)
[2018-11-02] MEDS ORDERED: MICONAZOLE NITRATE POWDER 43 GM EXT PRN (21:41)
[2018-11-03] MEDS: HYDROCODONE/ACETAMINOPHEN 7.5/325MG TAB PO PRN ×2 (00:07→12:07)
[2018-11-03] MEDS: LEVOTHYROXINE SODIUM 50 MCG TABLET PO SCH (05:03)
[2018-11-03 06:42] LABS: BUN Creatinine Ratio 23.4 (10-20); Calcium 8.9 mg/dl (8.5-10.1); Creatinine Clr Calc Pharmacy 88.6 ml/min; Est GFR (African American) 104.2; Est GFR (Non-African American) 89.9; Potassium 4.3 mmol/L (3.5-5.1)
[2018-11-03] MEDS: METOPROLOL SUCC 50MG EXT REL TAB PO SCH (08:55)
[2018-11-03] MEDS: ASPIRIN 81 MG ECTAB PO SCH (08:56)
[2018-11-03] MEDS: CHOLECALCIFEROL 1,000 UNITS TAB PO SCH (08:56)
[2018-11-03] MEDS: SODIUM CHLORIDE 1 GM TABLET PO SCH ×2 (08:56→20:42)
[2018-11-03] MEDS: CYANOCOBALAMIN 500 MCG TABLET (VITAMIN B-12) PO SCH (08:56)
[2018-11-03] MEDS: FUROSEMIDE 20 MG TAB PO SCH (08:56)
[2018-11-03] MEDS: FERROUS SULFATE 325 MG TAB PO SCH ×2 (08:56→20:42)
[2018-11-03] MEDS: DIVALPROEX DELAY RELEASE 125 MG TABEC PO SCH ×2 (08:57→20:42)
[2018-11-03] MEDS: POLYETHYLENE (MIRALAX) 17 GM PACK PO SCH ×2 (08:57→20:42)
[2018-11-03] MEDS: ENOXAPARIN INJ 40 MG/0.4 ML SYR SQ SCH (08:57)
[2018-11-03] MEDS: DIVALPROEX DELAY RELEASE 250 MG TABEC PO SCH ×2 (08:57→20:42)
[2018-11-03] MEDS: SENNA 8.6 MG TAB PO SCH (08:57)
[2018-11-03] MEDS ORDERED: MICONAZOLE NITRATE POWDER 43 GM EXT PRN (10:38)
--- NOTE | 2018-11-03 15:08 | Hospitalist Progress Note ---
Date of Service November 03, 2018 Assessment & Plan (1) Metabolic encephalopathy: resolved. was likely due to significant hyponatremia. Mental status is at baseline. -Okay to make hydrocodone scheduled but will make twice daily instead of 3 times daily (2) Hyponatremia: Na 121 at admission. Improved with Rx of SIADH. Sodium now stable at 130 SIADH most likely from lung SOLANGE. Continue fluid restriction of 1500cc daily. Continue NaCL tabs. Added lasix 20mg po daily as well BMP in am. (3) Hypothyroid: New onset. Started on levothyroxine 50 mcg PO daily this admission. Recheck TSH and FT4 in 4-6 weeks. (4) Cough: Likely due to SOLANGE infection Pulmonary consulted; no Rx recommended at this time repeat cxr this admission stable. he will need to f/u with ID and pulmonary post-discharge. the belief is that he would not tolerate SOLANGE Rx. (5) Generalized weakness: needs PT/OT after d/c has chronically deformed hips which likely contributes to debilitation (6) Dislocation of shoulder: s/p right shoulder reduction by ED physician Dr. Roberson prior to admission needs sling for at least 2 weeks. f/u with orthopedics in the clinic 2 weeks post-d/c. (7) Seizure disorder: depakote with recent level in range (8) BPH (benign prostatic hyperplasia): finasteride and tamsulosin no LUTS (9) GERD (gastroesophageal reflux disease): pantoprazole 40 mg daily (10) Chronic diastolic CHF (congestive heart failure): compensated, however on Lasix now for hyponatremia (11) Schizoaffective disorder: cont depakote cont clozapine holding benztropine (12) SOLANGE (mycobacterium avium-intracellulare): no treatment per pulmonary also follows with ID as outpatient see discussion above in "cough" (13) Constipation: severe on x-rays Had a large bowel movement on 11/02, is improved -Continue with aggressive bowel regimen due to immobility, etc (14) DVT prophylaxis: lovenox (15) Discharge planning issues: best option for him is [facility] I believe his quality of life will be worse in a SNF, however had professor of architecture is saying that he cannot come back there to the snf in his current state. Patient is now work with PT/OT and will await their evaluations -We will contact case management to discuss placement issues Subjective Patient has complaint of pain in his hips and charley horse in his left leg at times. Otherwise, he had a large bowel movement yesterday. He worked with physical therapy today finally. Denies any other complaints. He is agreeable to rehab placement. Apparently his head professor of architecture was in today and said that they cannot take him back to his snf in his current physical condition. The professor of architecture also stated that he has been on scheduled 3 times daily hydrocodone for a long time and it never caused him drowsiness-she says that having him on the pain medicine aches it much easier to get him to participate in physical therapy. Review of Systems All systems reviewed & are unremarkable except as noted in HPI & below Physical Exam 2 Vital Signs (Past 24 Hours): Last Vital Signs Temp 36.5 C 11/03/18 07:53 Pulse 79 11/03/18 08:55 Resp 20 11/03/18 07:53 BP 125/81 11/03/18 08:55 Pulse Ox 95 11/03/18 07:53 Constitutional: WD/WN, vitals as above Eyes: PERRL, conjunctivae normal, anicteric sclerae ENMT: external ear and nose normal, oropharynx normal Neck: trachea midline, no thyromegaly Respiratory: normal respiratory effort Auscultation: + rhonchi (And egophony in the bilateral upper lung [place]) Cardiovascular: RRR, no murmur, no edema Gastrointestinal (Abdomen): normal bowel sounds, soft, nontender, no hepatosplenomegaly Musculoskeletal: Extremities: + extremities abnormal to inspection (Right upper extremity and shoulder sling), no cyanosis and no clubbing Skin: no rashes, warm and dry Neurologic: moves all extremities and awake; no focal motor deficits Psychiatric: Orientation: alert Eye Contact: good eye contact Motor Behavior: n tremor Speech: + abnormal rate/rhythm/volume of speech (very soft spoken, but can understand him much better today than previously) Results & Data Laboratory Results 11/03/18 Range/Units 05:52 Sodium 130 L (136-145) mmol/L Potassium 4.3 (3.5-5.1) mmol/L Chloride 98 (98-107) mmol/L Carbon Dioxide 27 (21-32) mmol/L Anion Gap 6.0 (3-11) BUN 20 H (7-18) mg/dl Creatinine 0.87 (0.6-1.4) mg/dl Est Cr Clr Drug Dosing 88.6 ml/min Est GFR ( Amer) 104.2 Est GFR (Non-Af Amer) 89.9 BUN/Creatinine Ratio 23.4 H (10-20) Glucose 99 (70-99) mg/dl Calcium 8.9 (8.5-10.1) mg/dl _ (1) Hypothyroid Hypothyroidism type: acquired Qualified Code(s): E03.9 - Hypothyroidism, unspecified (2) Dislocation of shoulder Encounter type: initial encounter Laterality: right Qualified Code(s): S43.004A - Unspecified dislocation of right shoulder joint, initial encounter (3) BPH (benign prostatic hyperplasia) Lower urinary tract symptom presence: symptoms absent Lower urinary tract symptom detail: Qualified Code(s): N40.0 - Benign prostatic hyperplasia without lower urinary tract symptoms (4) GERD (gastroesophageal reflux disease) Esophagitis presence: esophagitis presence not specified Qualified Code(s): K21.9 - Gastro-esophageal reflux disease without esophagitis (5) Schizoaffective disorder Schizoaffective disorder type: other Qualified Code(s): F25.8 - Other schizoaffective disorders (6) Constipation Constipation type: other constipation type Qualified Code(s): K59.09 - Other constipation
[2018-11-03] MEDS: ACETAMINOPHEN 500 MG TAB PO PRN (16:07)
[2018-11-03] MEDS: HYDROCODONE/ACETAMINOPHEN 7.5/325MG TAB PO SCH (20:42)
[2018-11-03] MEDS: TAMSULOSIN HCL 0.4 MG CAP PO SCH (20:42)
[2018-11-03] MEDS: FINASTERIDE 5 MG TAB PO SCH (20:42)
[2018-11-03] MEDS: cloZAPine 100 MG TAB PO SCH (20:43)
[2018-11-04] MEDS: LEVOTHYROXINE SODIUM 50 MCG TABLET PO SCH (06:07)
[2018-11-04 07:01] LABS: BUN Creatinine Ratio 24.2 (10-20); Calcium 8.5 mg/dl (8.5-10.1); Creatinine Clr Calc Pharmacy 81.2 ml/min; Est GFR (African American) 96.3; Est GFR (Non-African American) 83.1; Potassium 4.5 mmol/L (3.5-5.1)
[2018-11-04 08:00] VITALS: PULSE 85; TEMP 97.2; O2SAT 97
[2018-11-04] MEDS: DIVALPROEX DELAY RELEASE 250 MG TABEC PO SCH (08:28)
[2018-11-04] MEDS: METOPROLOL SUCC 50MG EXT REL TAB PO SCH (08:28)
[2018-11-04] MEDS: DIVALPROEX DELAY RELEASE 125 MG TABEC PO SCH (08:28)
[2018-11-04] MEDS: SENNA 8.6 MG TAB PO SCH (08:29)
[2018-11-04] MEDS: FERROUS SULFATE 325 MG TAB PO SCH (08:29)
[2018-11-04] MEDS: HYDROCODONE/ACETAMINOPHEN 7.5/325MG TAB PO SCH (08:29)
[2018-11-04] MEDS: FUROSEMIDE 20 MG TAB PO SCH (08:29)
[2018-11-04] MEDS: SODIUM CHLORIDE 1 GM TABLET PO SCH (08:29)
[2018-11-04] MEDS: ASPIRIN 81 MG ECTAB PO SCH (08:29)
[2018-11-04] MEDS: CHOLECALCIFEROL 1,000 UNITS TAB PO SCH (08:30)
[2018-11-04] MEDS: ENOXAPARIN INJ 40 MG/0.4 ML SYR SQ SCH (08:33)
[2018-11-04] MEDS: POLYETHYLENE (MIRALAX) 17 GM PACK PO SCH (08:33)
[2018-11-04 12:04] VITALS: BP 125/81
[2018-11-04] MEDS ORDERED: HYDROCODONE/ACETAMINOPHEN 7.5/325MG TAB PO SCH (14:00)
--- NOTE | 2018-11-04 19:11 | Discharge Summary ---
Date of Service November 04, 2018 Admission HPI Per Admitting Provider The patient is a 68-year-old male who presents to the emergency department with complaint of worsening lethargy over the past week. His technology and engineering teacher reports that he has been incoherent and had difficulty transferring, has fallen multiple times, 1 of which he hit his head and had superficial bleeding but no loss of consciousness. He reports that the patient fell twice 3 days ago at which time he was thought to have a dislocated right shoulder. The dislocated shoulder was reduced in the emergency department by Dr. Roberson without difficulty. The history of present illness and review of systems is limited due to patient' s inability to respond, and is primarily supplied by the technology and engineering teacher. Principal Diagnosis Hyponatremia, SIADH, fecal impaction Discharge Exam Constitutional WD/WN, vitals as above Eyes PERRL, conjunctivae normal, anicteric sclerae ENMT external ear and nose normal, oropharynx normal Neck trachea midline, no thyromegaly Respiratory normal respiratory effort, lungs clear to auscultation normal respiratory effort Auscultation: + rhonchi (And egophony in the bilateral upper lung [place]) Cardiovascular RRR, no murmur, no edema Gastrointestinal (Abdomen) normal bowel sounds, soft, nontender, no hepatosplenomegaly Musculoskeletal Extremities: + extremities abnormal to inspection (Right upper extremity and shoulder sling), no cyanosis and no clubbing Skin no rashes, warm and dry Neurologic moves all extremities and awake; no focal motor deficits Psychiatric Orientation: alert Eye Contact: good eye contact Motor Behavior: n tremor Speech: + abnormal rate/rhythm/volume of speech (very soft spoken, but can understand him much better today than previously) Affect: + flat affect Discharge Data Allergies Allergy/AdvReac Type Severity Reaction Status Date / Time diltiazem Allergy Unknown rash and Verified 08/30/18 12:39 edema Consultations 10/31/18 09:40 Consult Pulmonology Routine 10/26/18 20:43 ED Decision to Admit Stat 10/27/18 01:03 Consult Case Management - Discharge Planning Routine Ordered Studies 10/26/18 18:23 CT cervical spine wo con Stat CT head/brain wo con Stat KUB x-ray Chest x-ray Right shoulder x-ray Pelvis x-ray Hospital Course (1) Metabolic encephalopathy: resolved. was likely due to significant hyponatremia. Mental status is at baseline. -Okay to make hydrocodone scheduled 3 times daily again for his chronic pain (2) Hyponatremia: Na 121 at admission. Improved with Rx of SIADH. Sodium now stable at 131 consistently for many days before discharge SIADH most likely from lung SOLANGE. Continue fluid restriction of 1500cc daily upon discharge Continue NaCL tabs 1 g twice daily. Added lasix 20mg po daily as well Follow BMP as an outpatient with PCP (3) Hypothyroid: New onset. Started on levothyroxine 50 mcg PO daily this admission, but will reduce to 25 mcg once daily upon discharge. Recheck TSH and FT4 in 4-6 weeks. (4) Cough: Likely due to SOLANGE infection Pulmonary consulted; no Rx recommended at this time repeat cxr this admission stable. he will need to f/u with ID and pulmonary post-discharge. the belief is that he would not tolerate SOLANGE Rx. (5) Generalized weakness: needs PT/OT after d/c has chronically deformed hips which likely contributes to debilitation (6) Dislocation of shoulder: s/p right shoulder reduction by ED physician Dr. Roberson prior to admission needs sling for at least 2 weeks. f/u with orthopedics in the clinic 2 weeks post-d/c. (7) Seizure disorder: depakote with recent level in range (8) BPH (benign prostatic hyperplasia): finasteride and tamsulosin no LUTS (9) GERD (gastroesophageal reflux disease): pantoprazole 40 mg daily (10) Chronic diastolic CHF (congestive heart failure): compensated, however on Lasix now for hyponatremia (11) Schizoaffective disorder: cont depakote cont clozapine Discontinued benztropine (12) SOLANGE (mycobacterium avium-intracellulare): no treatment per pulmonary also follows with ID as outpatient see discussion above in "cough" (13) Constipation: severe on x-rays Had a large bowel movement on 11/02 and again on 11/03, is improved -Continue with aggressive bowel regimen due to immobility, etc (14) DVT prophylaxis: lovenox was provided (15) Discharge planning issues: Evaluated by PT/OT and stable for discharge back to his [place] [facility] with 24 /7 care Total Time Total Time Spent Total Time Spent (In Minutes): Greater than 30 minutes Total Time Includes: Examination of the Patient, Discharge Planning and Medication Reconciliation Discharge Plan Discharge Items Patient Disposition: Home - Self-Care Reason For Visit: HYPONATREMIA, ANEMIA Discharge Diagnosis: Hyponatremia Condition: Fair Discharge Goals: Diagnostic testing, Learn about illness and Therapeutic intervention Activity: Resume your previous activity Lifting: Gradually increase as tolerated Bathing: No limitations Exercise/Sports: Gradually increase as tolerated Non-emergency contact: Primary Care Provider Call non-emergency contact if: you have any medication questions and your symptoms worsen Follow-up/Referrals: Júnior Orantes MD [Primary Care Provider] - (Call for appointment within 1-2 weeks after discharge ) Diet: Regular Fluids: 1500ml (6 cups) Other Ambulatory Orders: Basic Metabolic Panel (Routine) Timeframe: 3 Days Location: Determined by Patient Ordered By: Lorie Patterson Provider Instructions: You were admitted with low sodium levels and lethargy. Your low sodium levels are due to the chronic lung infection you have. Pulmonology and the Infectious Disease doctor think it is too risky to treat you for the chronic lung infection at this point. It is important for you to RESTRICT your fluid intake to 1500 mL/day. You were also started on salt tablets to be taken twice a day, and a diuretic called furosemide (Lasix) to be taken once daily in the AM. For your severe constipation, it is important to continue to take the laxatives as directed. You were also started on ferrous sulfate (iron tablets) for your anemia. These pills can turn your stool black and worsen constipation. Please have your blood work checked in 3 days and the results will be sent to Dr. Orantes. Please follow up with Dr. Orantes within 1-2 weeks. Prescriptions: New ferrous sulfate 325 mg (65 mg iron) Tablet,Delayed Release (Dr/Ec) 325 mg PO BID Qty: 60 RF: 0 polyethylene glycol 3350 [Miralax] 17 gram Powder In Packet 17 g PO BID Qty: 60 RF: 0 sodium chloride 1 gram Tablet 1 g PO BID Qty: 60 RF: 0 furosemide 20 mg Tablet 20 mg PO QAM Qty: 30 RF: 0 sennosides [Senokot] 8.6 mg Tablet 17.2 mg PO QAM Qty: 60 RF: 0 miconazole nitrate [Desenex] 2 % Powder 1 applic EXT PRN PRN (Reason: rash in groin folds) Qty: 1 RF: 0 levothyroxine 25 mcg tablet 25 mcg PO DAILY Qty: 30 RF: 0 Continue divalproex [Depakote] 250 mg Tablet,Delayed Release (Dr/Ec) 250 mg PO BID RF: 0 clozapine 100 mg Tablet 300 mg PO HS RF: 0 ranitidine HCl [Zantac 75] 75 mg Tablet 75 mg PO BID PRN (Reason: Acid Reflux) RF: 0 hydrocodone-acetaminophen 7.5-325 mg Tablet 1 tab PO TID RF: 0 divalproex [Depakote] 125 mg Tablet,Delayed Release (Dr/Ec) 125 mg PO BID RF: 0 finasteride 5 mg Tablet 5 mg PO DAILY RF: 0 mometasone [Asmanex Twisthaler] 220 mcg (120 doses) Aerosol Powdr Breath Activated 1 inh INHALATION QPM RF: 0 cyanocobalamin-cobamamide [B12] 5,000-100 mcg Lozenge 1,000 mg Sublingual 2XWK RF: 0 metoprolol succinate 50 mg Tablet Extended Release 24 Hr 50 mg PO DAILY RF: 0 aspirin 81 mg Tablet,Delayed Release (Dr/Ec) 81 mg PO DAILY RF: 0 magnesium hydroxide [Milk of Magnesia] 400 mg/5 mL Suspension 2 tbsp PO HS PRN (Reason: bowels) RF: 0 tamsulosin 0.4 mg Capsule 0.4 mg PO DAILY RF: 0 cholecalciferol (vitamin D3) [Vitamin D3] 2,000 unit Capsule 2,000 unit PO DAILY RF: 0 phenazopyridine 200 mg Tablet 200 mg PO TID PRN (Reason: painful urination) RF: 0 acetaminophen 500 mg Capsule 500 mg PO Q6H PRN (Reason: Pain) RF: 0 ipratropium-albuterol 0.5 mg-3 mg(2.5 mg base)/3 mL Solution For Nebulization 3 ml NEB Q4H PRN (Reason: SOB) Qty: 30 RF: 0 Discontinued benztropine 0.5 mg Tablet 0.5 mg PO DAILY RF: 0 polyethylene glycol 1450(bulk) [Polyglycol Shaggy Base] Powder 17 g miscellaneous DIRECTED RF: 0 Visit Report Forms: [facility] Stand-Alone Forms: [facility] Discharge Orders: Discharge Order (Routine); Ordered 11/04/18 Ordered By: Lorie Lerner Admission Data Admit Date/Time: 10/26/18 23:45 Attending Provider: Lorie Lerner Admit Provider: Lex Jauregui Primary Care Provider: Júnior Orantes Other Providers: Greg Borja ; Lex Jauregui ; Rogerio Enamorado Service: Medical Other Interventions: Discharge Summary Assessment (RN) Last Done: 11/04/18 12:14 Pending Studies at Discharge: No DC Date/Time DO NOT enter until pt leaves facility: 11/04/18 13:42
== END 2018-11-04 13:42 | disposition home or self-care (01) | DRG 643 ==
LOC: ED 16:26 → 2S 23:45 → SUATTDRO 23:45 → 2S 10-27 00:34 → 4E 10-28 14:43

== ENCOUNTER 2019-01-17 18:12 | Inpatient (IN) ==
[2019-01-17] MEDS ORDERED: SODIUM CHLORIDE 0.9% 1000ML 1,000 ML IV ONE (18:56)
[2019-01-17 19:03] LABS: Hematocrit (blood only) 36.2 % (42-52); Hemoglobin 11.5 g/dL (14.0-18.0); Mean Corpuscular Hgb Conc 31.8 g/dL (32-36); Mean Corpuscular Volume 92.1 fL (80-100); Mean Platelet Volume 8.9 fL (7.4-10.4); Platelet Count 181 K/uL (130-400); RDW Coefficient of Variation 14.1 % (11.5-14.5); RDW Standard Deviation 47.9 fL (36.4-46.3); Red Blood Count 3.93 M/uL (4.7-6.1); White Blood Count 9.19 K/uL (4.8-10.8)
[2019-01-17 19:25] LABS: Alanine Aminotransferase 20 U/L (12-78); Albumin Level 2.8 gm/dl (3.4-5.0); Aspartate Aminotransferase 23 U/L (15-37); BUN Creatinine Ratio 19.7 (10-20); Blood Urea Nitrogen 22 mg/dl (7-18); Calcium 9.1 mg/dl (8.5-10.1); Carbon Dioxide 31 mmol/L (21-32); Chloride 98 mmol/L (98-107); Est GFR (African American) 79.8; Est GFR (Non-African American) 68.8; Glucose 129 mg/dl (70-99); Potassium 4.3 mmol/L (3.5-5.1); Sodium 133 mmol/L (136-145)
[2019-01-17 19:28] LABS: ALC (manual) 1.04 K/uL (1.2-3.4); Basophils # (manual) 0.16 K/uL (0-0.2); Basophils % (manual) 1.7 %; Eosinophils # (manual) 0.08 K/uL (0-0.5); Eosinophils % (manual) 0.9 %; Lymphocytes # (manual) 1.04 K/uL (1.2-3.4); Lymphocytes % (manual) 11.3 %; Metamyelocytes # (manual) 0.08 K/uL (0-0); Metamyelocytes % (manual) 0.9 %; Monocytes # (manual) 0.48 K/uL (0.11-0.59); Monocytes % (manual) 5.2 %; Myelocytes % (manual) 4.3 %; Neutrophils % (manual) 75.7 %; RBC Morphology Unremarkable
[2019-01-17 19:30] LABS: Albumin Globulin Ratio 0.5 (0.9-2); Alkaline Phosphatase 83 U/L (45-117); Bilirubin,Total 0.3 mg/dl (0.2-1); Globulin 5.7 gm/dl (2.5-4.0); NT Pro B Type Natriuretic Pept 1892 pg/ml (0-900); Total Protein 8.5 gm/dl (6.4-8.2); Troponin I < 0.015 ng/ml (0-0.045)
--- NOTE | 2019-01-17 19:50 | XRay Report ---
XR chest 1V portable CLINICAL HISTORY: cough, hypoxia dyspnea COMPARISON STUDY: 12/15/2018 FINDINGS: Chronic parenchymal fibrotic change throughout both hemithoraces. Probable superimposed inf iltrative process left lung base. Diminished and STIR volumes. IMPRESSION: Small parenchymal infiltrate left base. This is superimposed upon chronic parenchymal fi brotic change which has been described previously. The above report was generated using voice recognition software. It may contain grammatical, syntax or spelling errors. Electronically signed by: Jose Miguel Corrigan M.D. 01/17/2019 7:49 PM
--- NOTE | 2019-01-17 20:30 | CT Scan Report ---
CT head/brain wo con CT DOSE: 1228.53 mGy.cm HISTORY: Mental status change ams TECHNIQUE: Multiaxial CT images of the head were performed without the use of intravenous contrast. A dose lowering technique was utilized adhering to the principles of ALARA. Comparison: None. Findings: The paranasal sinuses and mastoid air cells are clear. The calvarium and skull base are int act. The ventricles and sulci are within normal limits. There is no mass, hematoma, midline shift, or acute infarct. Impression: No acute intracranial abnormality. The above report was generated using voice recognition software. It may contain grammatical, syntax or spelling errors. Electronically signed by: Jose Miguel Corrigan M.D. 01/17/2019 8:27 PM
[2019-01-17] MEDS ORDERED: PIPERACILLIN/TAZOBACTAM 4.5 GM/120 ML BAG IV ONE (20:50)
[2019-01-17] MEDS ORDERED: PIPERACILL/TAZOBAC CONSULT ACTIVE PRN (20:50)
[2019-01-17] MEDS ORDERED: VANCOMYCIN CONSULT ACTIVE ONE (20:50)
[2019-01-17] MEDS ORDERED: VANCOMYCIN CONSULT ACTIVE PRN (20:50)
[2019-01-17] MEDS ORDERED: VANCOMYCIN HCL 2,000 MG in SODIUM CHLORIDE 0.9% 500 ML IV ONE (20:50)
[2019-01-17 21:36] LABS: Allen Test Pos (Pos); HCO3 ABG 29 mmol/L (19-24); Oxygen Saturation ABG 92.2 % (90-95); PCO2 ABG 48 mmHg (35-46); PO2 ABG 73 mm/Hg (80-95)
[2019-01-17] MEDS ORDERED: SODIUM CHLORIDE 0.9% 1000ML 1,000 ML IV SCH (21:45)
[2019-01-17 23:25] LABS: Influenza A virus by PCR Neg for Influ A (Neg); Influenza B virus by PCR Neg for Influ B (Neg)
--- NOTE | 2019-01-17 23:49 | History & Physical Report ---
Date of Service January 17, 2019 Assessment & Plan (1) Acute and chronic respiratory failure with hypoxia: Acute on chronic respiratory failure with hypoxia/10/20-11/03 admission with now resolved right lower lobe pneumonia/new left lower lobe pneumonia-- Continue vancomycin IV and Zosyn IV begun in the ED. Duonebs every 4 hours while awake and every 2 hours when necessary. Solu-Medrol 40 mg IV every 8 hours. Guaifenesin extended release 600 mg p.o. twice daily Sputum Gram stain and culture. Chronically on nasal cannula 2 L oxygen, titrate to keep pulse ox around 94%. Present on Admission?: Yes (2) Pneumonia: As above. Present on Admission?: Yes (3) Seizure disorder: Seizure disorder/schizophrenia-- Continue usual medications of clozapine and Depakote. Present on Admission?: Yes (4) GERD (gastroesophageal reflux disease): Continue ranitidine Present on Admission?: Yes (5) Altered mental status: Associated with worsening respiratory status and hypoxia, along with mild dehydration. Present on Admission?: Yes (6) BPH (benign prostatic hyperplasia): Continue tamsulosin 0.4 mg and finasteride every evening Present on Admission?: Yes (7) Schizoaffective disorder: As above. 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 every evening Present on Admission?: Yes (10) Hypertension: Continue metoprolol succinate 50 mg p.o. daily with hold parameters Present on Admission?: Yes History of Present Illness Chief Complaint: The patient is brought to the emergency department from his [facility] due to their concerns regarding worsening cough and shortness of breath. Primary Care Provider: Khari Orantes MD The patient is a 68-year-old male resident of a local [facility], with most recent admission to [facility] from 10/26-11/03, who presents to the emergency department with worsening cough, shortness of breath and reported to be falling asleep a lot during the day. 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 The patient is presently on a course of Augmentin which will end tomorrow. He is reportedly also been more confused over the past week. Allergies Allergy/AdvReac Type Severity Reaction Status Date / Time diltiazem Allergy Intermediate rash and Verified 01/17/19 19:51 edema Home Medications Home Medications Medication Instructions Recorded Confirmed Type Asmanex Twisthaler 1 inh INHALATION HS 08/30/18 01/17/19 History B12 1,000 mg SUBLINGUAL 2XWK 08/30/18 01/17/19 History acetaminophen 500 mg PO Q6H PRN MDD 2000 MG/24 08/30/18 01/17/19 History HOURS aspirin 81 mg PO HS 08/30/18 01/17/19 History cholecalciferol (vitamin D3) 2,000 unit PO HS 08/30/18 01/17/19 History [Vitamin D3] clozapine 300 mg PO HS 08/30/18 01/17/19 History divalproex [Depakote] 125 mg PO BID 08/30/18 01/17/19 History divalproex [Depakote] 250 mg PO BID 08/30/18 01/17/19 History finasteride 5 mg PO HS 08/30/18 01/17/19 History hydrocodone-acetaminophen 1 tab PO TID 08/30/18 01/17/19 History magnesium hydroxide [Milk of 2 tbsp PO HS PRN 08/30/18 01/17/19 History Magnesia] metoprolol succinate 50 mg PO DAILY 08/30/18 01/17/19 History phenazopyridine 200 mg PO TID PRN 08/30/18 01/17/19 History ranitidine HCl [Zantac 75] 75 mg PO BID 08/30/18 01/17/19 History tamsulosin 0.4 mg PO QPM 08/30/18 01/17/19 History ipratropium-albuterol 3 ml NEB Q4H PRN #30 ml 09/08/18 01/17/19 Rx ferrous sulfate 325 mg PO BID #60 tab 11/04/18 01/17/19 Rx furosemide 20 mg PO QAM #30 tab 11/04/18 01/17/19 Rx miconazole nitrate [Desenex] 1 applic EXT PRN PRN #1 btl 11/04/18 01/17/19 Rx sennosides [Senokot] 17.2 mg PO QAM #60 tab 11/04/18 01/17/19 Rx sodium chloride 1 g PO BID #60 tab 11/04/18 01/17/19 Rx levothyroxine 25 mcg PO QPM 01/17/19 01/17/19 History polyethylene glycol 3350 [Miralax] 17 g PO BID PRN 01/17/19 01/17/19 History Past Med/Surg History Medical History Metabolic encephalopathy Discharge planning issues SOLANGE (mycobacterium avium-intracellulare) Chronic diastolic CHF (congestive heart failure) Dislocation of shoulder (Acute) Aspiration pneumonia Anemia (Acute) Acute hyponatremia (Acute) DVT prophylaxis Sepsis Hypertension GERD (gastroesophageal reflux disease) BPH (benign prostatic hyperplasia) Seizure disorder Acute respiratory failure with hypoxia Pneumonia (Acute) Abnormal chest CT (Acute) Anemia (Acute) Diabetes mellitus (Chronic 01/08/13) Hyperammonemia Hyperkalemia, diminished renal excretion Hyponatremia (Acute) Social History Preferred Language: Malay Communication Ability: Effective Beliefs That Will Affect Care: None marital status: Current Living Situation: Personal Care Facility Current Living Situation Comment: [employer] current occupational status: retired Feels Safe at Home: Yes Safety Concerns: Feels Safe At This Time Smoking Status: Former smoker Hx Alcohol Use: No Hx Substance Use: No Review of Systems Review of systems is somewhat limited due to patient's baseline mental state and current physical condition, and is as noted noted and related above by his manager payment. Physical Exam Vital Signs (Past 24 Hours): Last Vital Signs Temp 37.1 C 01/17/19 18:17 Pulse 96 H 01/17/19 21:01 Resp 23 01/17/19 21:01 BP 132/60 01/17/19 21:01 Pulse Ox 90 01/17/19 21:01 Physical Exam: The patient is awake, alert, normocephalic and atraumatic, lying in bed and in mild distress secondary to frequent light cough. HEENT--PERRL, EOMI, mucous membranes and oropharynx dry. Neck--supple. No JVD. No bruits. Thyroid normal, trachea midline, no adenopathy. Heart--normal S1 and S2. No murmurs, rubs or gallops. Lungs--coarse breath sounds bilaterally. No signs of respiratory distress or accessory muscle use. Abdomen--normal bowel sounds and soft. Nontender. Nondistended, no hernias or masses, no organomegaly. Extremities--no cyanosis or clubbing. No edema. There are good distal pulses b/l. Dermatologic--normal skin turgor, normal color, no abnormal lymph nodes, no rash. Neurologic--cranial nerves II through XII grossly intact. Rheumatologic--normal range of motion. Psychiatric--normal affect. Results & Data Laboratory Results Laboratory Results WBC 9.19 K/uL (4.8-10.8) 01/17/19 18:40 RBC 3.93 M/uL (4.7-6.1) L 01/17/19 18:40 Hgb 11.5 g/dL (14.0-18.0) L 01/17/19 18:40 Hct 36.2 % (42-52) L 01/17/19 18:40 MCV 92.1 fL (80-100) 01/17/19 18:40 MCH 29.3 pg (25-34) 01/17/19 18:40 MCHC 31.8 g/dL (32-36) L 01/17/19 18:40 RDW Std Deviation 47.9 fL (36.4-46.3) H 01/17/19 18:40 RDW Coeff of Nakia 14.1 % (11.5-14.5) 01/17/19 18:40 Plt Count 181 K/uL (130-400) 01/17/19 18:40 MPV 8.9 fL (7.4-10.4) 01/17/19 18:40 Neutrophils % (Manual) 75.7 % 01/17/19 18:40 Lymphocytes % (Manual) 11.3 % 01/17/19 18:40 Monocytes % (Manual) 5.2 % 01/17/19 18:40 Eosinophils % (Manual) 0.9 % 01/17/19 18:40 Basophils % (Manual) 1.7 % 01/17/19 18:40 Metamyelocytes % (Man) 0.9 % 01/17/19 18:40 Myelocytes % (Man) 4.3 % 01/17/19 18:40 Neutrophils # (Manual) 6.96 K/uL (1.4-6.5) H 01/17/19 18:40 Total Absolute Neuts 6.96 K/uL (1.4-6.5) H 01/17/19 18:40 Lymphocytes # (Manual) 1.04 K/uL (1.2-3.4) L 01/17/19 18:40 Total Abs Lymphocytes 1.04 K/uL (1.2-3.4) L 01/17/19 18:40 Monocytes # (Manual) 0.48 K/uL (0.11-0.59) 01/17/19 18:40 Eosinophils # (Manual) 0.08 K/uL (0-0.5) 01/17/19 18:40 Basophils # (Manual) 0.16 K/uL (0-0.2) 01/17/19 18:40 Metamyelocytes # (Man) 0.08 K/uL (0-0) H 01/17/19 18:40 Myelocytes # (Manual) 0.40 K/uL (0-0) H 01/17/19 18:40 RBC Morphology Unremarkable 01/17/19 18:40 ABG pH 7.40 (7.35-7.45) 01/17/19 21:23 ABG pCO2 48 mmHg (35-46) H 01/17/19 21:23 ABG pO2 73 mm/Hg (80-95) L 01/17/19 21:23 ABG HCO3 29 mmol/L (19-24) H 01/17/19 21:23 ABG O2 Saturation 92.2 % (90-95) 01/17/19 21:23 ABG Base Excess 3.1 mEq/L (-9-1.8) H 01/17/19 21:23 Nikhil Test Pos (Pos) 01/17/19 21:23 Barometric Pressure 735.3 mm/Hg 01/17/19 21:23 Oxygen Given 3 L 01/17/19 21:23 Sodium 133 mmol/L (136-145) L 01/17/19 18:40 Potassium 4.3 mmol/L (3.5-5.1) 01/17/19 18:40 Chloride 98 mmol/L (98-107) 01/17/19 18:40 Carbon Dioxide 31 mmol/L (21-32) 01/17/19 18:40 Anion Gap 5.0 (3-11) 01/17/19 18:40 BUN 22 mg/dl (7-18) H 01/17/19 18:40 Creatinine 1.11 mg/dl (0.6-1.4) 01/17/19 18:40 Est Cr Clr Drug Dosing Not Reportable 01/17/19 18:40 Est GFR ( Amer) 79.8 01/17/19 18:40 Est GFR (Non-Af Amer) 68.8 01/17/19 18:40 BUN/Creatinine Ratio 19.7 (10-20) 01/17/19 18:40 Glucose 129 mg/dl (70-99) H 01/17/19 18:40 Calcium 9.1 mg/dl (8.5-10.1) 01/17/19 18:40 Magnesium 2.0 mg/dl (1.8-2.4) 01/17/19 18:40 Total Bilirubin 0.3 mg/dl (0.2-1) 01/17/19 18:40 AST 23 U/L (15-37) 01/17/19 18:40 ALT 20 U/L (12-78) 01/17/19 18:40 Alkaline Phosphatase 83 U/L (45-117) 01/17/19 18:40 Ammonia 44.8 umol/L (11-32) H 01/17/19 21:15 Troponin I < 0.015 ng/ml (0-0.045) 01/17/19 18:40 NT-Pro-B Natriuret Pep 1892 pg/ml (0-900) H 01/17/19 18:40 Total Protein 8.5 gm/dl (6.4-8.2) H 01/17/19 18:40 Albumin 2.8 gm/dl (3.4-5.0) L 01/17/19 18:40 Globulin 5.7 gm/dl (2.5-4.0) H 01/17/19 18:40 Albumin/Globulin Ratio 0.5 (0.9-2) L 01/17/19 18:40 Lipase 134 U/L (73-393) 01/17/19 18:40 Procalcitonin 0.07 ng/ml (0-0.5) 01/17/19 18:40 Valproic Acid 56 mcg/ml (50-100) 01/17/19 21:15 Influenza Type A (PCR) Neg for Influ A (Neg) 01/17/19 22:10 Influenza Type B (PCR) Neg for Influ B (Neg) 01/17/19 22:10 Diagnostic Findings [facility], [place] [phone] CT Scan Report Patient: JOSIE DO Date: 01/17/19 MR#: [id number]: [address] Acct ID:[id number]: Date: 1950[facility] Zip: [place] [address] Age: 68Location: ED Sex: M Room/Bed: Att Phy: Diagnosis: DIFFICULTY BREATHING,PAIN IN BOTH LUNGS,LOW OXYGEN Maribeth Phy: Khari Orantes, ROSANNAervice Date: 01/17/19 Fam Phy: Interpreting Phy: Jose Miguel Corrigan MD Admit Phy: Ordering Phy: Corinne Tolbert, cc: ~ CT head/brain wo con CT DOSE: 1228.53 mGy.cm HISTORY: Mental status change ams TECHNIQUE: Multiaxial CT images of the head were performed without the use of intravenous contrast. A dose lowering technique was utilized adhering to the principles of ALARA. Comparison: None. Findings: The paranasal sinuses and mastoid air cells are clear. The calvarium and skull base are intact. The ventricles and sulci are within normal limits. There is no mass, hematoma, midline shift, or acute infarct. Impression: No acute intracranial abnormality. The above report was generated using voice recognition software. It may contain grammatical, syntax or spelling errors. Electronically signed by: Jose Miguel Corrigan M.D. 01/17/2019 8:27 PM Dictated: 01/17/192025 Transcribed: 01/17/192025 [facility], [place] [phone] XRay Report Patient: JOSIE DO Date: 01/17/19 MR#: [id number]: [address] Acct ID:[id number]: Date: [address] [place] [address] Zip: [place] [address] Age: 68Location: ED Sex: M Room/Bed: Att Phy: Diagnosis: DIFFICULTY BREATHING,PAIN IN BOTH LUNGS,LOW OXYGEN Maribeth Phy: Khari Orantes, MDService Date: 01/17/19 Fam Phy: Interpreting Phy: Jose Miguel Corrigan MD Admit Phy: Ordering Phy: Corinne Tolbert, cc: ~ XR chest 1V portable CLINICAL HISTORY: cough, hypoxia dyspnea COMPARISON STUDY: 12/15/2018 FINDINGS: Chronic parenchymal fibrotic change throughout both hemithoraces. Probable superimposed infiltrative process left lung base. Diminished and STIR volumes. IMPRESSION: Small parenchymal infiltrate left base. This is superimposed upon chronic parenchymal fibrotic change which has been described previously. The above report was generated using voice recognition software. It may contain grammatical, syntax or spelling errors. Electronically signed by: Jose Miguel Corrigan M.D. 01/17/2019 7:49 PM Dictated: 01/17/191947 Transcribed: 01/17/191947 Code Status & VTE Plan Code Status Full code VTE Prophylaxis Plan VTE Prophylaxis will be ordered: Yes (1) Pneumonia Pneumonia type: due to unspecified organism (2) GERD (gastroesophageal reflux disease) Esophagitis presence: esophagitis presence not specified Qualified Code(s): K21.9 - Gastro-esophageal reflux disease without esophagitis (3) BPH (benign prostatic hyperplasia) Lower urinary tract symptom presence: symptoms absent Qualified Code(s): N40.0 - Benign prostatic hyperplasia without lower urinary tract symptoms (4) Altered mental status Altered mental status type: unspecified Qualified Code(s): R41.82 - Altered mental status, unspecified (5) Schizoaffective disorder Schizoaffective disorder type: other Qualified Code(s): F25.8 - Other schizoaffective disorders (6) Hypothyroid Hypothyroidism type: acquired Qualified Code(s): E03.9 - Hypothyroidism, unspecified (7) Hypertension Hypertension type: essential hypertension Qualified Code(s): I10 - Essential (primary) hypertension
--- NOTE | 2019-01-18 00:11 | Emergency Department Note ---
Entered by Huan Hilario acting as a scribe for History of Present Illness General Chief complaint: Shortness of Breath/Dyspnea Stated complaint: DIFFICULTY BREATHING,PAIN IN BOTH LUNGS,LOW OXYGEN Time Seen by Provider: 01/17/19 18:33 Source: other (Senior [employer] at the Home where he lives) History of Present Illness Provider complaint: SOB/Cough Onset (ago): week(s) Location: chest (Cough/SOB) Pain Consistency: + other (worsening) Maximum Pain Intensity: 8 Quality: + other (SOB/Cough) Associated symptoms: + chest pain (pain in lungs); no nausea/vomiting Treatments prior to arrival: other (Augmentin, Nebulizers) The patient is a 68 year old male who presents to the Emergency Room with a compensation manager from his care home with complains of worsening cough and shortness of breath. The patient has a history of respiratory failure and has been on 2L of oxygen at night for over 10 years. The compensation manager notes that he has appeared more short of breath and has been "falling asleep a lot" during the day. The patient was at the outpatient clinic this evening and had a hypoxic oxygen saturation. The compensation manager cannot remember what the number was. He adds that the patient is currently on a course of Augmentin, tomorrow will be his last dosage. The patient has complained of "my lungs hurting" and he is now complaining of a pain in his neck as well. He denies any nausea, vomiting, or diarrhea. He has been using nebulizers 3 times per day for the past week. Staff member/compensation manager who accompanies him states he has been slightly more confused over the last week also which is usually an indication for them that he is ill and needs additional evaluation. Home Medications Home Medications Medication Instructions Recorded Confirmed Type Asmanex Twisthaler 1 inh INHALATION HS 08/30/18 01/17/19 History B12 1,000 mg SUBLINGUAL 2XWK 08/30/18 01/17/19 History acetaminophen 500 mg PO Q6H PRN MDD 2000 MG/24 08/30/18 01/17/19 History HOURS aspirin 81 mg PO HS 08/30/18 01/17/19 History cholecalciferol (vitamin D3) 2,000 unit PO HS 08/30/18 01/17/19 History [Vitamin D3] clozapine 300 mg PO HS 08/30/18 01/17/19 History divalproex [Depakote] 125 mg PO BID 08/30/18 01/17/19 History divalproex [Depakote] 250 mg PO BID 08/30/18 01/17/19 History finasteride 5 mg PO HS 08/30/18 01/17/19 History hydrocodone-acetaminophen 1 tab PO TID 08/30/18 01/17/19 History magnesium hydroxide [Milk of 2 tbsp PO HS PRN 08/30/18 01/17/19 History Magnesia] metoprolol succinate 50 mg PO DAILY 08/30/18 01/17/19 History phenazopyridine 200 mg PO TID PRN 08/30/18 01/17/19 History ranitidine HCl [Zantac 75] 75 mg PO BID 08/30/18 01/17/19 History tamsulosin 0.4 mg PO QPM 08/30/18 01/17/19 History ipratropium-albuterol 3 ml NEB Q4H PRN #30 ml 09/08/18 01/17/19 Rx ferrous sulfate 325 mg PO BID #60 tab 11/04/18 01/17/19 Rx furosemide 20 mg PO QAM #30 tab 11/04/18 01/17/19 Rx miconazole nitrate [Desenex] 1 applic EXT PRN PRN #1 btl 11/04/18 01/17/19 Rx sennosides [Senokot] 17.2 mg PO QAM #60 tab 11/04/18 01/17/19 Rx sodium chloride 1 g PO BID #60 tab 11/04/18 01/17/19 Rx levothyroxine 25 mcg PO QPM 01/17/19 01/17/19 History polyethylene glycol 3350 [Miralax] 17 g PO BID PRN 01/17/19 01/17/19 History Allergies Allergy/AdvReac Type Severity Reaction Status Date / Time diltiazem Allergy Intermediate rash and Verified 01/17/19 19:51 edema Past Med/Surg History Medical History Metabolic encephalopathy Discharge planning issues SOLANGE (mycobacterium avium-intracellulare) Chronic diastolic CHF (congestive heart failure) Dislocation of shoulder (Acute) Aspiration pneumonia Anemia (Acute) Acute hyponatremia (Acute) DVT prophylaxis Sepsis Hypertension GERD (gastroesophageal reflux disease) BPH (benign prostatic hyperplasia) Seizure disorder Acute respiratory failure with hypoxia Pneumonia (Acute) Abnormal chest CT (Acute) Anemia (Acute) Diabetes mellitus (Chronic 01/08/13) Hyperammonemia Hyperkalemia, diminished renal excretion Hyponatremia (Acute) Social History Preferred Language: Georgian Beliefs That Will Affect Care: None marital status: Current Living Situation: Personal Care Facility Current Living Situation Comment: [employer] current occupational status: retired Feels Safe at Home: Yes Smoking Status: Former smoker Hx Alcohol Use: No Hx Substance Use: No Review of Systems See HPI for pertinent positives & negatives. ROS Limited secondary to poor historian. Physical Exam Vital Signs Vital Signs - 24 hr 01/17/19 18:17 01/17/19 18:45 01/17/19 18:47 Temperature 37.1 C Temperature Source Oral Sepsis Recent Fever Within 48 Hours No Sepsis New/Unexplained Change in Mental Status No Sepsis Action Taken by Nursing No Action Required Pulse Rate 92 H Pulse Rate [Apical] 93 H 93 H Pulse Rate from SpO2 Sensor Pulse Rhythm [Apical] Regular Respiratory Rate 20 20 20 Respiratory Effort / Characteristics Non-Labored Spontaneous Non-Labored Spontaneous Respiratory Depth Normal Normal Respiratory Pattern Regular Regular Blood Pressure 102/59 L Blood Pressure Mean 73 Pulse Oximetry 90 88 L 92 Oxygen Delivery Method Room Air Room Air Nasal Cannula Oxygen Flow Rate 2 01/17/19 18:48 01/17/19 19:00 01/17/19 20:00 Temperature Temperature Source Sepsis Recent Fever Within 48 Hours Sepsis New/Unexplained Change in Mental Status Sepsis Action Taken by Nursing Pulse Rate 90 90 Pulse Rate [Apical] Pulse Rate from SpO2 Sensor 90 Pulse Rhythm [Apical] Respiratory Rate 26 H 23 Respiratory Effort / Characteristics Respiratory Depth Respiratory Pattern Blood Pressure Blood Pressure Mean Pulse Oximetry 92 96 Oxygen Delivery Method Nasal Cannula Oxygen Flow Rate 2 01/17/19 20:37 01/17/19 20:52 01/17/19 21:01 Temperature Temperature Source Sepsis Recent Fever Within 48 Hours Sepsis New/Unexplained Change in Mental Status Sepsis Action Taken by Nursing Pulse Rate 96 H 95 H 96 H Pulse Rate [Apical] Pulse Rate from SpO2 Sensor 97 H 97 H 102 H Pulse Rhythm [Apical] Respiratory Rate 19 18 23 Respiratory Effort / Characteristics Respiratory Depth Respiratory Pattern Blood Pressure 100/69 131/45 L 132/60 Blood Pressure Mean 79 73 84 Pulse Oximetry 95 94 90 Oxygen Delivery Method Oxygen Flow Rate 2 2 2 01/17/19 21:30 01/17/19 22:01 01/17/19 22:22 Temperature Temperature Source Sepsis Recent Fever Within 48 Hours Sepsis New/Unexplained Change in Mental Status Sepsis Action Taken by Nursing Pulse Rate 101 H 109 H 108 H Pulse Rate [Apical] Pulse Rate from SpO2 Sensor 103 H 105 H 107 H Pulse Rhythm [Apical] Respiratory Rate 20 17 22 Respiratory Effort / Characteristics Respiratory Depth Respiratory Pattern Blood Pressure 150/89 H 136/70 Blood Pressure Mean 109 92 Pulse Oximetry 95 94 Oxygen Delivery Method Oxygen Flow Rate 01/17/19 22:30 01/17/19 23:01 Temperature Temperature Source Sepsis Recent Fever Within 48 Hours Sepsis New/Unexplained Change in Mental Status Sepsis Action Taken by Nursing Pulse Rate 108 H 108 H Pulse Rate [Apical] Pulse Rate from SpO2 Sensor 103 H 108 H Pulse Rhythm [Apical] Respiratory Rate 30 H 24 Respiratory Effort / Characteristics Respiratory Depth Respiratory Pattern Blood Pressure 152/93 H Blood Pressure Mean 112 Pulse Oximetry 92 100 Oxygen Delivery Method Oxygen Flow Rate GENERAL: alert, chronically ill appearing, well nourished, no distress, non-toxic. Frequent cough on exam. EYE EXAM: normal conjunctiva, PERRL and EOM's grossly intact OROPHARYNX: no exudate, no erythema, lips, buccal mucosa, and tongue normal and mucous membranes are moist NECK: supple, no nuchal rigidity, no adenopathy, non-tender LUNGS: Frequent cough on exam, decreased breath sounds bilaterally. Normal chest wall mechanics HEART: no murmurs, S1 normal and S2 normal ABDOMEN: abdomen soft, non-tender, normo-active bowel sounds, no masses, no rebound or guarding. BACK: Back is symmetrical on inspection and there is no deformity, no midline tenderness, no CVA tenderness. SKIN: no rashes and no bruising UPPER EXTREMITIES: upper extremities are grossly normal. Nml pulses b/l. LOWER EXTREMITIES: 1+ bilateral pitting edema. Nml pulses b/l. NEURO EXAM: Pleasantly confused cranial nerves II-XII grossly intact, normal speech, no gross weakness of arms, no gross weakness of legs. Course 1847: Past medical records reviewed. The patient was evaluated in room C5, and a complete history and physical examination were performed. 2204: I reviewed the patient's case with Dr. Jauregui - [facility] [place] Hospitalist. He will evaluate the patient for further management. Administered Medications Sodium Chloride (Nss 1000ml) 1,000 mls @ 125 mls/hr IV .Q8H GUERO Stop: 02/16/19 21:44 Last Admin: 01/17/19 22:56 Dose: 125 mls/hr Documented by: [id number] Discontinued Medications Sodium Chloride (Nss 1000ml) 1,000 mls @ 999 mls/hr IV .Q1H1M ONE Stop: 01/17/19 19:56 Last Infusion: 01/17/19 20:32 Dose: 0 mls/hr Documented by: [id number] Admin: 01/17/19 19:24 Dose: 999 mls/hr Documented by: [id number] Piperacillin Sod/Tazobactam Sod (Zosyn) 4.5 gm in 120 mls @ 240 mls/hr IV NOW ONE Stop: 01/17/19 21:19 Last Infusion: 01/17/19 22:21 Dose: 0 mls/hr Documented by: [id number] Admin: 01/17/19 21:23 Dose: 240 mls/hr Documented by: [id number] Vancomycin HCl 2,000 mg/ (Sodium Chloride) 540 mls @ 200 mls/hr IV NOW ONE Stop: 01/17/19 23:31 Last Infusion: 01/18/19 00:04 Dose: 0 mls/hr Documented by: [id number] Admin: 01/17/19 21:23 Dose: 200 mls/hr Documented by: [id number] Miscellaneous Information (Consult) 1 ea N/A UD ONE Stop: 01/17/19 20:51 Last Admin: 01/17/19 22:21 Dose: Not Given Documented by: [id number] Medical Decision Making Differential Diagnosis Differential diagnosis: Etiologies such as infections, reactive airway disease, COPD, pneumonia, pleural effusion, pulmonary edema, ARDS, pneumothorax, CHF, cardiac ischemia, cardiac tamponade, dysrhythmia, anemia, pulmonary embolism, musculoskeletal, gastrointestinal process, as well as others were entertained. Medical Records Attestation: I reviewed the patient's medical records. Home Medications Current Medication List: was personally reviewed by me Laboratory Data Attestation: I reviewed the patient's lab results. Result diagrams: 01/17/19 18:40 01/17/19 18:40 Lab Results 01/17/19 01/17/19 01/17/19 Range/Units 18:40 18:40 18:40 WBC 9.19 (4.8-10.8) K/uL RBC 3.93 L (4.7-6.1) M/uL Hgb 11.5 L (14.0-18.0) g/dL Hct 36.2 L (42-52) % MCV 92.1 (80-100) fL MCH 29.3 (25-34) pg MCHC 31.8 L (32-36) g/dL RDW Std Deviation 47.9 H (36.4-46.3) fL RDW Coeff of Nakia 14.1 (11.5-14.5) % Plt Count 181 (130-400) K/uL MPV 8.9 (7.4-10.4) fL Neutrophils % (Manual) 75.7 % Lymphocytes % (Manual) 11.3 % Monocytes % (Manual) 5.2 % Eosinophils % (Manual) 0.9 % Basophils % (Manual) 1.7 % Metamyelocytes % (Man) 0.9 % Myelocytes % (Man) 4.3 % Neutrophils # (Manual) 6.96 H (1.4-6.5) K/uL Total Absolute Neuts 6.96 H (1.4-6.5) K/uL Lymphocytes # (Manual) 1.04 L (1.2-3.4) K/uL Total Abs Lymphocytes 1.04 L (1.2-3.4) K/uL Monocytes # (Manual) 0.48 (0.11-0.59) K/uL Eosinophils # (Manual) 0.08 (0-0.5) K/uL Basophils # (Manual) 0.16 (0-0.2) K/uL Metamyelocytes # (Man) 0.08 H (0-0) K/uL Myelocytes # (Manual) 0.40 H (0-0) K/uL RBC Morphology Unremarkable ABG pH (7.35-7.45) ABG pCO2 (35-46) mmHg ABG pO2 (80-95) mm/Hg ABG HCO3 (19-24) mmol/L ABG O2 Saturation (90-95) % ABG Base Excess (-9-1.8) mEq/L Nikhil Test (Pos) Barometric Pressure mm/Hg Oxygen Given Sodium 133 L (136-145) mmol/L Potassium 4.3 (3.5-5.1) mmol/L Chloride 98 (98-107) mmol/L Carbon Dioxide 31 (21-32) mmol/L Anion Gap 5.0 (3-11) BUN 22 H (7-18) mg/dl Creatinine 1.11 (0.6-1.4) mg/dl Est Cr Clr Drug Dosing Not Reportable Est GFR ( Amer) 79.8 Est GFR (Non-Af Amer) 68.8 BUN/Creatinine Ratio 19.7 (10-20) Glucose 129 H (70-99) mg/dl Calcium 9.1 (8.5-10.1) mg/dl Magnesium 2.0 (1.8-2.4) mg/dl Total Bilirubin 0.3 (0.2-1) mg/dl AST 23 (15-37) U/L ALT 20 (12-78) U/L Alkaline Phosphatase 83 (45-117) U/L Ammonia (11-32) umol/L Troponin I < 0.015 (0-0.045) ng/ml NT-Pro-B Natriuret Pep 1892 H (0-900) pg/ml Total Protein 8.5 H (6.4-8.2) gm/dl Albumin 2.8 L (3.4-5.0) gm/dl Globulin 5.7 H (2.5-4.0) gm/dl Albumin/Globulin Ratio 0.5 L (0.9-2) Lipase 134 (73-393) U/L Procalcitonin 0.07 (0-0.5) ng/ml Valproic Acid (50-100) mcg/ml Influenza Type A (PCR) (Neg) Influenza Type B (PCR) (Neg) 01/17/19 01/17/19 01/17/19 Range/Units 21:15 21:15 21:23 WBC (4.8-10.8) K/uL RBC (4.7-6.1) M/uL Hgb (14.0-18.0) g/dL Hct (42-52) % MCV (80-100) fL MCH (25-34) pg MCHC (32-36) g/dL RDW Std Deviation (36.4-46.3) fL RDW Coeff of Nakia (11.5-14.5) % Plt Count (130-400) K/uL MPV (7.4-10.4) fL Neutrophils % (Manual) % Lymphocytes % (Manual) % Monocytes % (Manual) % Eosinophils % (Manual) % Basophils % (Manual) % Metamyelocytes % (Man) % Myelocytes % (Man) % Neutrophils # (Manual) (1.4-6.5) K/uL Total Absolute Neuts (1.4-6.5) K/uL Lymphocytes # (Manual) (1.2-3.4) K/uL Total Abs Lymphocytes (1.2-3.4) K/uL Monocytes # (Manual) (0.11-0.59) K/uL Eosinophils # (Manual) (0-0.5) K/uL Basophils # (Manual) (0-0.2) K/uL Metamyelocytes # (Man) (0-0) K/uL Myelocytes # (Manual) (0-0) K/uL RBC Morphology ABG pH 7.40 (7.35-7.45) ABG pCO2 48 H (35-46) mmHg ABG pO2 73 L (80-95) mm/Hg ABG HCO3 29 H (19-24) mmol/L ABG O2 Saturation 92.2 (90-95) % ABG Base Excess 3.1 H (-9-1.8) mEq/L Nikhil Test Pos (Pos) Barometric Pressure 735.3 mm/Hg Oxygen Given 3 L Sodium (136-145) mmol/L Potassium (3.5-5.1) mmol/L Chloride (98-107) mmol/L Carbon Dioxide (21-32) mmol/L Anion Gap (3-11) BUN (7-18) mg/dl Creatinine (0.6-1.4) mg/dl Est Cr Clr Drug Dosing Est GFR ( Amer) Est GFR (Non-Af Amer) BUN/Creatinine Ratio (10-20) Glucose (70-99) mg/dl Calcium (8.5-10.1) mg/dl Magnesium (1.8-2.4) mg/dl Total Bilirubin (0.2-1) mg/dl AST (15-37) U/L ALT (12-78) U/L Alkaline Phosphatase (45-117) U/L Ammonia 44.8 H (11-32) umol/L Troponin I (0-0.045) ng/ml NT-Pro-B Natriuret Pep (0-900) pg/ml Total Protein (6.4-8.2) gm/dl Albumin (3.4-5.0) gm/dl Globulin (2.5-4.0) gm/dl Albumin/Globulin Ratio (0.9-2) Lipase (73-393) U/L Procalcitonin (0-0.5) ng/ml Valproic Acid 56 (50-100) mcg/ml Influenza Type A (PCR) (Neg) Influenza Type B (PCR) (Neg) 01/17/19 Range/Units 22:10 WBC (4.8-10.8) K/uL RBC (4.7-6.1) M/uL Hgb (14.0-18.0) g/dL Hct (42-52) % MCV (80-100) fL MCH (25-34) pg MCHC (32-36) g/dL RDW Std Deviation (36.4-46.3) fL RDW Coeff of Nakia (11.5-14.5) % Plt Count (130-400) K/uL MPV (7.4-10.4) fL Neutrophils % (Manual) % Lymphocytes % (Manual) % Monocytes % (Manual) % Eosinophils % (Manual) % Basophils % (Manual) % Metamyelocytes % (Man) % Myelocytes % (Man) % Neutrophils # (Manual) (1.4-6.5) K/uL Total Absolute Neuts (1.4-6.5) K/uL Lymphocytes # (Manual) (1.2-3.4) K/uL Total Abs Lymphocytes (1.2-3.4) K/uL Monocytes # (Manual) (0.11-0.59) K/uL Eosinophils # (Manual) (0-0.5) K/uL Basophils # (Manual) (0-0.2) K/uL Metamyelocytes # (Man) (0-0) K/uL Myelocytes # (Manual) (0-0) K/uL RBC Morphology ABG pH (7.35-7.45) ABG pCO2 (35-46) mmHg ABG pO2 (80-95) mm/Hg ABG HCO3 (19-24) mmol/L ABG O2 Saturation (90-95) % ABG Base Excess (-9-1.8) mEq/L Nikhil Test (Pos) Barometric Pressure mm/Hg Oxygen Given Sodium (136-145) mmol/L Potassium (3.5-5.1) mmol/L Chloride (98-107) mmol/L Carbon Dioxide (21-32) mmol/L Anion Gap (3-11) BUN (7-18) mg/dl Creatinine (0.6-1.4) mg/dl Est Cr Clr Drug Dosing Est GFR ( Amer) Est GFR (Non-Af Amer) BUN/Creatinine Ratio (10-20) Glucose (70-99) mg/dl Calcium (8.5-10.1) mg/dl Magnesium (1.8-2.4) mg/dl Total Bilirubin (0.2-1) mg/dl AST (15-37) U/L ALT (12-78) U/L Alkaline Phosphatase (45-117) U/L Ammonia (11-32) umol/L Troponin I (0-0.045) ng/ml NT-Pro-B Natriuret Pep (0-900) pg/ml Total Protein (6.4-8.2) gm/dl Albumin (3.4-5.0) gm/dl Globulin (2.5-4.0) gm/dl Albumin/Globulin Ratio (0.9-2) Lipase (73-393) U/L Procalcitonin (0-0.5) ng/ml Valproic Acid (50-100) mcg/ml Influenza Type A (PCR) Neg for Influ A (Neg) Influenza Type B (PCR) Neg for Influ B (Neg) Imaging Data Attestation: I personally reviewed and interpreted this imaging study as follows: Radiologist's Impression: CT head/brain wo con CT DOSE: 1228.53 mGy.cm HISTORY: Mental status change ams TECHNIQUE: Multiaxial CT images of the head were performed without the use of intravenous contrast. A dose lowering technique was utilized adhering to the principles of ALARA. Comparison: None. Findings: The paranasal sinuses and mastoid air cells are clear. The calvarium and skull base are intact. The ventricles and sulci are within normal limits. There is no mass, hematoma, midline shift, or acute infarct. Impression: No acute intracranial abnormality. The above report was generated using voice recognition software. It may contain grammatical, syntax or spelling errors. Electronically signed by: Jose Miguel Corrigan M.D. 01/17/2019 8:27 PM XR chest 1V portable CLINICAL HISTORY: cough, hypoxia dyspnea COMPARISON STUDY: 12/15/2018 FINDINGS: Chronic parenchymal fibrotic change throughout both hemithoraces. Probable superimposed infiltrative process left lung base. Diminished and STIR volumes. IMPRESSION: Small parenchymal infiltrate left base. This is superimposed upon chronic parenchymal fibrotic change which has been described previously. The above report was generated using voice recognition software. It may contain grammatical, syntax or spelling errors. Electronically signed by: Jose Miguel Corrigan M.D. 01/17/2019 7:49 PM ECG Data Attestation: I personally reviewed and interpreted this ECG as follows: Indication: tachycardia Rate (beats per minute): 101 Rhythm: sinus rhythm Findings: + other (Poor baseline for interpretation, peaked t-waves in V2 and V3); no acute ischemic change Comparison ECG Date: from (10/26/2018) Change: the following changes noted (increased rate) Blood Pressure Blood Pressure Findings: Normal blood pressure MDM Narrative Patient here given worsening respiratory symptoms and hypoxia noted in family doctor's office initially as well as on arrival here. Patient afebrile here and hemodynamically stable. Patient with altered mental status here also, likely from underlying pneumonia is seen on chest x-ray. Given patient's complicated pulmonary history as well as other medical problems, antibiotics discussed with pharmacy as a precaution. Patient given broad coverage at this time due to prior history. Blood cultures were drawn and sent, pro-calcitonin reassuring. Flu negative. Given altered mentation and patient's use of other psychiatric medications, a valproic acid level as well as an ammonia level were added. Patient's ammonia level very mildly elevated. Patient with a mildly elevated BNP, although exam not consistent with acute CHF. Staff member states the patient frequently has bilateral lower extremity edema and that they did not feel this was significantly worse. Patient not hypercapnic on ABG. PH normal. Impression & Plan Pneumonia, Hypoxia, Altered mental status Discharge Plan Visit Data Chief Complaint: Shortness of Breath/Dyspnea Stated Complaint: DIFFICULTY BREATHING,PAIN IN BOTH LUNGS,LOW OXYGEN ED Provider: Corinne Tolbert Discharge Problem: Pneumonia, Hypoxia, Altered mental status Patient Disposition: Being Evaluated by Hospitalist Forms Stand Alone Forms: My [facility] Prescriptions Prescriptions: No Action divalproex [Depakote] 250 mg Tablet,Delayed Release (Dr/Ec) 250 mg PO BID RF: 0 clozapine 100 mg Tablet 300 mg PO HS RF: 0 ranitidine HCl [Zantac 75] 75 mg Tablet 75 mg PO BID RF: 0 hydrocodone-acetaminophen 7.5-325 mg Tablet 1 tab PO TID RF: 0 divalproex [Depakote] 125 mg Tablet,Delayed Release (Dr/Ec) 125 mg PO BID RF: 0 finasteride 5 mg Tablet 5 mg PO HS RF: 0 Asmanex Twisthaler 220 mcg (120 doses) Aerosol Powdr Breath Activated 1 inh INHALATION HS RF: 0 B12 5,000-100 mcg Lozenge 1,000 mg Sublingual 2XWK RF: 0 metoprolol succinate 50 mg Tablet Extended Release 24 Hr 50 mg PO DAILY RF: 0 aspirin 81 mg Tablet,Delayed Release (Dr/Ec) 81 mg PO HS RF: 0 magnesium hydroxide [Milk of Magnesia] 400 mg/5 mL Suspension 2 tbsp PO HS PRN (Reason: NO BM IN 48 HOURS.) RF: 0 tamsulosin 0.4 mg Capsule 0.4 mg PO QPM RF: 0 cholecalciferol (vitamin D3) [Vitamin D3] 2,000 unit Capsule 2,000 unit PO HS RF: 0 phenazopyridine 200 mg Tablet 200 mg PO TID PRN (Reason: painful urination) RF: 0 acetaminophen 500 mg Capsule 500 mg PO Q6H MDD 2000 MG/24 HOURS PRN (Reason: Pain) RF: 0 ipratropium-albuterol 0.5 mg-3 mg(2.5 mg base)/3 mL Solution For Nebulization 3 ml NEB Q4H PRN (Reason: SOB) Qty: 30 RF: 0 ferrous sulfate 325 mg (65 mg iron) Tablet,Delayed Release (Dr/Ec) 325 mg PO BID Qty: 60 RF: 0 sodium chloride 1 gram Tablet 1 g PO BID Qty: 60 RF: 0 furosemide 20 mg Tablet 20 mg PO QAM Qty: 30 RF: 0 sennosides [Senokot] 8.6 mg Tablet 17.2 mg PO QAM Qty: 60 RF: 0 Desenex 2 % Powder 1 applic EXT PRN PRN (Reason: rash in groin folds) Qty: 1 RF: 0 polyethylene glycol 3350 [Miralax] 17 gram powder in packet 17 g PO BID PRN (Reason: Constipation) RF: 0 levothyroxine 25 mcg tablet 25 mcg PO QPM RF: 0 Referrals Referrals: Júnior Orantes MD [Primary Care Provider] - Discharge Problem: Pneumonia Qualifiers: Pneumonia type: due to unspecified organism Altered mental status Qualifiers: Altered mental status type: unspecified Qualified Code(s): R41.82 - Altered mental status, unspecified The scribe's documentation has been prepared under my direction and personally reviewed by me in its entirety. I confirm that the note above accurately reflects all work, treatment, procedures, and medical decision making performed by me.
[2019-01-18] MEDS ORDERED: NON-FORMULARY MEDICATION (Acetaminophen 500 MG) PO PRN (01:39)
[2019-01-18] MEDS ORDERED: PHENAZOPYRIDINE HCL 200 MG TAB PO PRN (01:39)
[2019-01-18] MEDS ORDERED: POLYETHYLENE (MIRALAX) 17 GM PACK PO PRN ×2 (01:39)
[2019-01-18] MEDS ORDERED: MICONAZOLE NITRATE POWDER 43 GM EXT PRN (01:39)
[2019-01-18] MEDS ORDERED: VANCOMYCIN CONSULT ACTIVE PRN (01:39)
[2019-01-18] MEDS ORDERED: PIPERACILL/TAZOBAC CONSULT ACTIVE PRN (01:39)
[2019-01-18] MEDS ORDERED: MAGNESIUM HYDROXIDE SUSP 30 ML UDC PO PRN (01:39)
[2019-01-18] MEDS ORDERED: ACETAMINOPHEN 1000 MG/100 ML IV IV PRN (01:39)
[2019-01-18] MEDS ORDERED: PIPERACILLIN/TAZOBACTAM 4.5 GM in DEXTROSE 5% 100 ML IV STA (01:39)
[2019-01-18] MEDS ORDERED: ALBUT/IPRATROP 3MG/0.5MG NEB 3 ML VIAL NEB PRN (01:39)
[2019-01-18] MEDS ORDERED: VANCOMYCIN HCL 1,000 MG in SODIUM CHLORIDE 0.9% 250 ML IV SCH (01:39)
[2019-01-18] MEDS ORDERED: PATIENT'S HEIGHT AND/OR WEIGHT NEEDED SCH (01:45)
[2019-01-18] MEDS: ACETAMINOPHEN 325 MG TAB PO PRN ×2 (02:32→05:43)
[2019-01-18] MEDS: PIPERACILLIN/TAZOBACTAM 3.375 GM in DEXTROSE 5% 100 ML IV SCH ×3 (02:39→18:11)
[2019-01-18] MEDS: DIVALPROEX DELAY RELEASE 125 MG TABEC PO SCH ×3 (02:42→21:21)
[2019-01-18] MEDS: methylPREDNISolone 40 MG in SYRINGE 0 ML IV SCH ×4 (02:44→23:47)
[2019-01-18] MEDS: DIVALPROEX DELAY RELEASE 250 MG TABEC PO SCH ×3 (02:44→21:23)
[2019-01-18] MEDS: SODIUM CHLORIDE 1 GM TABLET PO SCH ×3 (02:44→21:22)
[2019-01-18 06:17] LABS: INR 1.1 (0.9-1.1); Prothrombin Time 10.9 Seconds (9.0-12.0)
[2019-01-18 06:38] LABS: Creatinine Clr Calc Pharmacy 86.6 ml/min; Est GFR (African American) 100.1; Est GFR (Non-African American) 86.4
[2019-01-18] MEDS: ALBUT/IPRATROP 3MG/0.5MG NEB 3 ML VIAL NEB SCH ×4 (07:06→20:22)
--- NOTE | 2019-01-18 08:16 | Hospitalist Progress Note ---
Date of Service January 18, 2019 Assessment & Plan (1) Acute and chronic respiratory failure with hypoxia: Acute on chronic respiratory failure with hypoxia/10/20-11/03 admission with now resolved right lower lobe pneumonia/new left lower lobe pneumonia-- vancomycin IV and Zosyn IV Duonebs every 4 hours Solu-Medrol 40 mg IV every 8 hours. Guaifenesin extended release 600 mg p.o. twice daily Sputum Gram stain and culture. Chronically on nasal cannula 2 L oxygen, titrate to keep pulse ox around 94%. (2) Pneumonia: As above. (3) Seizure disorder: Seizure disorder/schizophrenia-- Continue usual medications of clozapine and Depakote, valproic acid is normal. (4) GERD (gastroesophageal reflux disease): Continue ranitidine (5) Altered mental status: Associated with worsening respiratory status and hypoxia, along with mild dehydration, likely metabolic encephalopathy. (6) BPH (benign prostatic hyperplasia): tamsulosin 0.4 mg and finasteride every evening (7) Schizoaffective disorder: As above. 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 every evening (10) Hypertension: Continue metoprolol succinate 50 mg p.o. daily with hold parameters (11) Elevated total protein: She is elevated total protein and metamyelocytes seen on the differential repeat protein and a differential in the morning. The elevated protein may be from dehydration metamyelocytes may be from a bone marrow stimulation from infection Subjective Patient is receiving nebulizers he is seems to be alert he is conversant although slightly confused at times he does have some decreased breath sounds at the bases and some rales he is coughing Review of Systems ROS: Patient appears chronically ill No double vision blurry vision No problems with speech or swallowing No palpitations, chest pain or pressure To moderate respiratory distress No abdominal pain nausea vomiting diarrhea changes in appetite or weight No burning urine urine frequency or changes in color No focal joint pain or muscle pain No skin rashes or oral lesions No unusual bruising or bleeding No focused back pain or numbness or loss of strength Seems to have some baseline memory impairment Physical Exam Vital Signs (Past 24 Hours): Last Vital Signs Temp 36.7 C 01/18/19 07:23 Pulse 93 H 01/18/19 07:23 Resp 18 01/18/19 07:23 BP 118/60 01/18/19 07:23 Pulse Ox 93 01/18/19 07:23 The patient appeared well nourished and normally developed. He appears to be institutionalized or chronically ill in some way Vital signs as documented. Head exam is unremarkable. normocephalic, atraumatic Neck is without jugular venous distension, thyromegaly, or lymphademopathy Lungs are decreased breath sounds at the bases more rales at the left base and right Cardiac exam reveals Rhythm is regular. Systolic murmur very distant first and second heart sounds normal. Abdominal exam reveals normal bowel sounds, no masses, no organomegaly Extremities are mildly edematous and both pedal pulses are present Neurologic exam is A&Ox2, no focal deficits, strength is equal bilateral globally diminished Skin is warm Dry without bruises or lesions (1) BPH (benign prostatic hyperplasia) Lower urinary tract symptom presence: symptoms absent Qualified Code(s): N40.0 - Benign prostatic hyperplasia without lower urinary tract symptoms (2) Hypothyroid Hypothyroidism type: acquired Qualified Code(s): E03.9 - Hypothyroidism, unspecified (3) Schizoaffective disorder Schizoaffective disorder type: other Qualified Code(s): F25.8 - Other schizoaffective disorders (4) Altered mental status Altered mental status type: unspecified Qualified Code(s): R41.82 - Altered mental status, unspecified (5) GERD (gastroesophageal reflux disease) Esophagitis presence: esophagitis presence not specified Qualified Code(s): K21.9 - Gastro-esophageal reflux disease without esophagitis (6) Hypertension Hypertension type: essential hypertension Qualified Code(s): I10 - Essential (primary) hypertension (7) Pneumonia Pneumonia type: due to unspecified organism
[2019-01-18] MEDS: HYDROCODONE/ACETAMINOPHEN 7.5/325MG TAB PO SCH ×3 (08:24→21:30)
[2019-01-18] MEDS: FUROSEMIDE 20 MG TAB PO SCH (08:26)
[2019-01-18] MEDS: METOPROLOL SUCC 50MG EXT REL TAB PO SCH (08:27)
[2019-01-18] MEDS: SENNA 8.6 MG TAB PO SCH (08:28)
--- NOTE | 2019-01-18 10:27 | Pharmacy Report ---
Pharmacy Abx Initial Consult - Date of Service January 18, 2019 - Pharmacy Dosing Scope Date of Consult: 01-18 Consultation requested by: Dr. Jauregui Pharmacy is consulted to initiate vancomycin and zosyn dosing therapy, order appropriate labs and adjust drug dose/frequency. - Subjective The patient is a 68 year old M admitted on 01/17/19 23:48. - Objective Height: 5 ft 8 in Weight: 91.1 kg Vital Signs (Past 12hrs): Vital Signs Lab Results (24hrs): Laboratory Tests (24 Hours) 01/18/19 01/17/19 01/17/19 05:34 18:40 18:40 WBC Creatinine 0.92 1.11 Est Cr Clr Drug Dosing 86.6 Not Reportable Procalcitonin 0.07 01/17/19 18:40 WBC 9.19 Creatinine Est Cr Clr Drug Dosing Procalcitonin Micro Results: 01/17/19 19:35 Blood Culture - Pending Blood 01/17/19 19:35 Blood Culture - Pending Blood - Risk Factors for Resistance * Resident in a jail or extended-care facility - resident of detention * Hospitalization for 48 hours or more within the past 90 days - admission 10/20-11/03 * Antimicrobial use within the last 90 days - augmentin prior to admission - Assessment & Plan Assessment / Plan: Patient started on vancomycin and zosyn for possible pneumonia. On augmentin prior to admission. Blood cultures currently pending. Per provider notes, chronic SOLANGE (mycobacterium avium-intracellulare) infection. Vancomycin: * Patient received loading dose of vancomycin 2000 mg (~22 mg/kg) iv in ED last evening * Started on maintenance dose of vancomycin 1250 mg (~14 mg/kg) iv q 12 hrs to achieve an estimated trough ~15-20 mcg/ml (goal for pneumonia) * Estimated kinetics: t1/2~9 hrs, ke~0.08 hr-1, CrCl ~86 ml/min * Will plan to obtain trough prior to the 0900 dose on 01/19 to ensure therapeutic. Zosyn: * 4.5 gm x 1, then 3.375 gm iv q 8 hrs - appropriate for CrCl >20 ml/min Pharmacy will continue to follow and will adjust dose/frequency as necessary. Thank you.
[2019-01-18] MEDS: VANCOMYCIN HCL 1,250 MG in SODIUM CHLORIDE 0.9% 250 ML IV SCH ×2 (11:20→21:20)
[2019-01-18] MEDS: HEPARIN SOD 5,000 UNIT/0.5 ML VIAL SQ SCH ×2 (13:28→21:21)
--- NOTE | 2019-01-18 15:06 | Medical Student Progress Note ---
Date of Service January 18, 2019 Assessment & Plan (1) Pneumonia: 68yo M with medical hx of HFpEF, chronic respiratory failure with hypoxia (on 2L O2 at night for 10yrs) due to COPD?, GERD, BPH, seizure disorder, and schizoaffective disorder admitted for worsening cough, SOB and reported to be falling asleep a lot during the day. The patient is presently on a course of Augmentin which will end tomorrow. He has reportedly also been more confused over the past week. Resident of a local intermediate, with most recent admission to [facility] from 10/26-11/03. Clinically pt does not appear to be in acute respiratory distress. HR is elevated in the 90s, but remaining vitals are stable. CXR shows small parenchymal infiltrate of left lung base superimposed upon chronic parenchymal fibrotic changes. O2 sat at 93 on RA. Will continue with initial plan to treat as HAP/HCAP (hospital admission in past 90 days and resides in intermediate) covering for MRSA and pseudomonas with zosyn and vanc. IV steroids started for exacerbation of COPD and duonebs prn. There was concern from the intermediate that pt may have been more confused over the past week-- may be a result of COPD exacerbation resulting in lower O2 sat. Ammonia at 44.8, but pts LFTs are within normal range. Total protein slightly elevated at 8.5 and albumin low at 2.8-- will repeat these labs tomorrow. Pneumonia type: due to unspecified organism Subjective 68yo M with medical hx of HFpEF, chronic respiratory failure with hypoxia (on 2L O2 at night for 10yrs), GERD, BPH, seizure disorder, and schizoaffective disorder admitted for worsening cough, SOB and reported to be falling asleep a lot during the day. The patient is presently on a course of Augmentin which will end tomorrow. He is reportedly also been more confused over the past week. Resident of a local intermediate, with most recent admission to [facility] from 10/26-11/03. Pt states no SOB this AM. Productive cough; pt feels cough is cough from upper airways, not deep in the chest. 1 episode of emesis No sore throat no f/c/n Physical Exam Vital Signs (Past 24 Hours): Last Vital Signs Temp 36.4 C L 01/18/19 11:27 Pulse 78 01/18/19 11:32 Resp 18 01/18/19 11:32 BP 128/71 01/18/19 11:27 Pulse Ox 97 01/18/19 11:32 Physical Exam: GENERAL: WD/WN, no acute distress, talks in low volume, sometimes speech is not interpretable, tangential at times HEENT: Head: Atraumatic, normocephalic. Eyes: EOMI, Nose: No nasal congestion. Throat: No erythema of pharynx Mouth: Moist mucous membranes, no lesions. Neck: Supple, no JVD, no cervical LAD. Nervous System: Mental status: Alert and oriented x 3, Cranial nerves IIXII grossly intact. Motor: Strength 5/5 in UE; LE weak, but not well assessed Chest/Lung: crackles in lower and middle lobes b/l rhonchi and wheezing b/l Heart: Regular rate and rhythm. Normal S1, S2. No murmurs, rubs, or gallops. Abdomen: Soft, nontender, nondistended, BS present, Extremities: b/l 1+ pitting edema; b/l eccyhmois of LE
[2019-01-18 18:36] LABS: Appearance Urine Clear (Clear); Bilirubin Urine Negative (Negative); Blood Urine Negative (Negative); Color Urine Yellow; Glucose Urine UA Negative (Negative); Ketones Urine Negative (Negative); Leukocyte Esterase Urine Negative (Negative); Nitrite Urine Negative (Negative); Protein Urine Negative (Negative); Specific Gravity Urine 1.014 (1.000-1.030); Urobilinogen Urine Negative (Negative); pH Urine 6.5 (4.5-7.5)
[2019-01-18] MEDS: LEVOTHYROXINE SODIUM 25 MCG TABLET PO SCH (21:20)
[2019-01-18] MEDS: ASPIRIN 81 MG ECTAB PO SCH (21:22)
[2019-01-18] MEDS: CHOLECALCIFEROL 1,000 UNITS TAB PO SCH (21:22)
[2019-01-18] MEDS: TAMSULOSIN HCL 0.4 MG CAP PO SCH (21:22)
[2019-01-18] MEDS: FINASTERIDE 5 MG TAB PO SCH (21:22)
[2019-01-18] MEDS: cloZAPine 100 MG TAB PO SCH (21:23)
[2019-01-19] MEDS: PIPERACILLIN/TAZOBACTAM 3.375 GM in DEXTROSE 5% 100 ML IV SCH ×3 (01:39→18:00)
[2019-01-19] MEDS: ALBUT/IPRATROP 3MG/0.5MG NEB 3 ML VIAL NEB SCH ×4 (07:18→19:56)
[2019-01-19] MEDS ORDERED: VANCOMYCIN TROUGH ONE (08:30)
[2019-01-19 08:46] LABS: Hematocrit (blood only) 32.4 % (42-52); Hemoglobin 10.3 g/dL (14.0-18.0); Mean Corpuscular Hgb Conc 31.8 g/dL (32-36); Mean Corpuscular Volume 91.5 fL (80-100); Mean Platelet Volume 9.1 fL (7.4-10.4); Platelet Count 160 K/uL (130-400); RDW Coefficient of Variation 13.4 % (11.5-14.5); RDW Standard Deviation 45.1 fL (36.4-46.3); Red Blood Count 3.54 M/uL (4.7-6.1); White Blood Count 10.61 K/uL (4.8-10.8)
[2019-01-19] MEDS ORDERED: CYANOCOBALAMIN 500 MCG TABLET (VITAMIN B-12) PO SCH (09:00)
[2019-01-19 09:23] LABS: Creatinine Clr Calc Pharmacy 98.8 ml/min; Est GFR (African American) 107.9; Est GFR (Non-African American) 93.1
[2019-01-19 09:25] LABS: Total Protein 7.3 gm/dl (6.4-8.2)
[2019-01-19 09:26] LABS: Basophils # (auto) 0.01 K/uL (0-0.2); Basophils % (auto) 0.1 %; Immature Granulocytes # (auto) 0.68 K/uL (0.00-0.02); Immature Granulocytes % (auto) 6.4 %; Lymphocytes # (auto) 1.12 K/uL (1.2-3.4); Lymphocytes % (auto) 10.6 %; Monocytes # (auto) 0.36 K/uL (0.11-0.59); Monocytes % (auto) 3.4 %; Neutrophils # (auto) 8.44 K/uL (1.4-6.5); Neutrophils % (auto) 79.5 %
[2019-01-19] MEDS: HYDROCODONE/ACETAMINOPHEN 7.5/325MG TAB PO SCH ×3 (09:39→21:24)
[2019-01-19] MEDS: HEPARIN SOD 5,000 UNIT/0.5 ML VIAL SQ SCH ×2 (09:40→21:19)
[2019-01-19] MEDS: VANCOMYCIN HCL 1,250 MG in SODIUM CHLORIDE 0.9% 250 ML IV SCH (09:40)
[2019-01-19] MEDS: DIVALPROEX DELAY RELEASE 250 MG TABEC PO SCH ×2 (09:41→20:34)
[2019-01-19] MEDS: METOPROLOL SUCC 50MG EXT REL TAB PO SCH (09:41)
[2019-01-19] MEDS: DIVALPROEX DELAY RELEASE 125 MG TABEC PO SCH ×2 (09:42→20:33)
[2019-01-19] MEDS: SODIUM CHLORIDE 1 GM TABLET PO SCH ×2 (09:42→20:35)
[2019-01-19] MEDS: SENNA 8.6 MG TAB PO SCH (09:42)
[2019-01-19] MEDS: FUROSEMIDE 20 MG TAB PO SCH (09:42)
--- NOTE | 2019-01-19 14:03 | Medical Student Progress Note ---
Date of Service January 19, 2019 Assessment & Plan (1) Pneumonia: 68yo M with medical hx of HFpEF, chronic respiratory failure with hypoxia (on 2L O2 at night for 10yrs) due to COPD?, GERD, BPH, seizure disorder, and schizoaffective disorder admitted for worsening cough, SOB and reported to be falling asleep a lot during the day. The patient is presently on a course of Augmentin which will end tomorrow. He has reportedly also been more confused over the past week. Resident of a local [place] [facility], with most recent admission to [facility] from 10/26-11/03. 01/18 Clinically pt does not appear to be in acute respiratory distress. HR is elevated in the 90s, but remaining vitals are stable. CXR shows small parenchymal infiltrate of left lung base superimposed upon chronic parenchymal fibrotic changes. O2 sat at 93 on RA. Will continue with initial plan to treat as HAP/HCAP (hospital admission in past 90 days and resides in [place] [facility]) covering for MRSA and pseudomonas with zosyn and vanc. IV steroids started for exacerbation of COPD and duonebs prn. There was concern from the [place] [facility] that pt may have been more confused over the past week-- may be a result of COPD exacerbation resulting in lower O2 sat. Ammonia at 44.8, but pts LFTs are within normal range. Total protein slightly elevated at 8.5 and albumin low at 2.8-- will repeat these labs tomorrow. 01/19 continuing abx for HAP/HCAP. MRSA nasal swab neg. Will d/c vanc. continue zosyn IV for at least 72hrs. then, can consider transition to po augmentin and a fluoroquinolone (to continue pseudomonas coverage) or just a fluoro, like levo. abx tx for 7-14days depending on pt improvement. But, will lean towards a longer course as pt has severe COPD and was already just finishing a course of augmentin. solumedrol 40 q8hr, to 40 q12, to now 40 po prednisone. will continue steroids for total of 5-14days depending on pt improvement. pt met CURB-65 criteria for admission (>65yo, confusion/somnolent per [place] [facility] staff, BUN > 20). since admission pt one elevated temp of 37.8 (afebrile since) , no WBC, RR 18-20, O2 sat 90 on RA, but lung exam and CXR are concerning for PNA in context of a pt with severe COPD. Just recently finishing a course of augmentin. d/c once clinical lung exam improved, decreased need for breathing treatments, on po abx, and PT/OT determine if at functional baseline or rehab needed. depakote levels in therapeutic range at 56. Pneumonia type: due to unspecified organism Subjective 68yo M with medical hx of HFpEF, chronic respiratory failure with hypoxia (on 2L O2 at night for 10yrs), GERD, BPH, seizure disorder, and schizoaffective disorder admitted for worsening cough, SOB and reported to be falling asleep a lot during the day. The patient is presently on a course of Augmentin which will end tomorrow. He is reportedly also been more confused over the past week. Resident of a local [place] [facility], with most recent admission to [facility] from 10/26-11/03. Pt states no SOB this AM was on 1L O2 at 96% sat at the time productive cough no f/c/n Physical Exam Vital Signs (Past 24 Hours): Last Vital Signs Temp 36.3 C L 01/19/19 12:09 Pulse 85 01/19/19 12:09 Resp 20 01/19/19 12:09 BP 174/75 H 01/19/19 12:09 Pulse Ox 90 01/19/19 12:09 Physical Exam: GENERAL: WD/WN, no acute distress, talks in low volume, sometim es speech is not interpretable, tangential at times HEENT: Head: Atraumatic, normocephalic. Eyes: EOMI, Nose: No nasal congestion. Throat: No erythema of pharynx Mouth: Moist mucous membranes, no lesions. Neck: Supple, no JVD, no cervical LAD. Nervous System: Mental status: Alert and oriented x 3, Cranial nerves IIXII grossly intact. Motor: Strength 5/5 in UE; LE weak, but not well assessed Chest/Lung: crackles in lower and middle lobes b/l no ronchi or wheezing today Heart: Regular rate and rhythm. Normal S1, S2. S3 or S4- difficult to determine at time due to elevated HR No murmurs, rubs, or gallops. Abdomen: Soft, nontender, nondistended, BS present, Extremities: b/l 1+ pitting edema; b/l eccyhmois of LE
--- NOTE | 2019-01-19 16:48 | Hospitalist Progress Note ---
Date of Service January 19, 2019 Assessment & Plan (1) Acute and chronic respiratory failure with hypoxia: Acute on chronic respiratory failure with hypoxia. previous 10/20-11/03 admission with now resolved right lower lobe pneumonia/new left lower lobe pneumonia-- d/c vancomycin IV as patient had negative nasal swab for MRSA and continue Zosyn IV Duonebs every 4 hours Solu-Medrol will transition to prednisone on 01/20 Guaifenesin extended release 600 mg p.o. twice daily we will add codeine at night for cough suppression Sputum Gram stain and culture. Chronically on nasal cannula 2 L oxygen, titrate to keep pulse ox around 94%. (2) Pneumonia: As above. (3) Seizure disorder: Seizure disorder/schizophrenia--for some time his mood seems stabilized Continue usual medications of clozapine and Depakote, valproic acid is normal. (4) GERD (gastroesophageal reflux disease): Continue ranitidine, he is without abdominal complaints (5) Altered mental status: Associated with worsening respiratory status and hypoxia, along with mild dehydration, likely metabolic encephalopathy. Resolved (6) BPH (benign prostatic hyperplasia): tamsulosin 0.4 mg and finasteride every evening times (7) Schizoaffective disorder: As above. 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 every evening (10) Hypertension: Continue metoprolol succinate 50 mg p.o. daily control blood pressure mild systolic elevation but overall good control (11) Elevated total protein: Repeat protein is normal likely this is based upon dehydration presentation Subjective pt seems much improved, still with a cough and requests a cough medicine, Review of Systems ROS: well nourished well developed. No double vision blurry vision No problems with speech or swallowing No palpitations, chest pain or pressure No Wheezing has some coughing which is nonproductive No abdominal pain nausea vomiting diarrhea changes in appetite or weight No burning urine urine frequency or changes in color No focal joint pain or muscle pain No skin rashes or oral lesions No unusual bruising or bleeding No focused back pain or numbness or loss of strength Physical Exam Vital Signs (Past 24 Hours): Last Vital Signs Temp 36.5 C 01/19/19 15:25 Pulse 80 03/22/19 15:25 Resp 23 01/19/19 15:25 BP 155/82 H 01/19/19 15:25 Pulse Ox 90 01/19/19 15:25 The patient appeared well nourished and normally developed. Though chronically ill and appears to be appropriate for eating in a support system Vital signs as documented. Head exam is unremarkable. normocephalic, atraumatic Neck is without jugular venous distension, thyromegaly, or lymphademopathy Lungs are rhonchorous at the bases but improving over time Cardiac exam reveals Rhythm is regular. First and second heart sounds normal. Abdominal exam reveals normal bowel sounds, no masses, no organomegaly Extremities are nonedematous and both pedal pulses are present Neurologic exam is A&Ox2, no focal deficits, appears slightly mentally depressed (1) Pneumonia Pneumonia type: due to unspecified organism (2) GERD (gastroesophageal reflux disease) Esophagitis presence: esophagitis presence not specified Qualified Code(s): K21.9 - Gastro-esophageal reflux disease without esophagitis (3) Altered mental status Altered mental status type: unspecified Qualified Code(s): R41.82 - Altered mental status, unspecified (4) BPH (benign prostatic hyperplasia) Lower urinary tract symptom presence: symptoms absent Qualified Code(s): N40.0 - Benign prostatic hyperplasia without lower urinary tract symptoms (5) Schizoaffective disorder Schizoaffective disorder type: other Qualified Code(s): F25.8 - Other schizoaffective disorders (6) Hypothyroid Hypothyroidism type: acquired Qualified Code(s): E03.9 - Hypothyroidism, unspecified (7) Hypertension Hypertension type: essential hypertension Qualified Code(s): I10 - Essential (primary) hypertension
[2019-01-19] MEDS ORDERED: GUAIFENESIN/CODEINE 200MG/20MG 10ML UDC PO PRN (16:49)
[2019-01-19] MEDS: TAMSULOSIN HCL 0.4 MG CAP PO SCH (19:53)
[2019-01-19] MEDS: cloZAPine 100 MG TAB PO SCH (20:32)
[2019-01-19] MEDS: ASPIRIN 81 MG ECTAB PO SCH (20:34)
[2019-01-19] MEDS: FINASTERIDE 5 MG TAB PO SCH (20:35)
[2019-01-19] MEDS: CHOLECALCIFEROL 1,000 UNITS TAB PO SCH (20:35)
[2019-01-19] MEDS: LEVOTHYROXINE SODIUM 25 MCG TABLET PO SCH (20:35)
[2019-01-20] MEDS: PIPERACILLIN/TAZOBACTAM 3.375 GM in DEXTROSE 5% 100 ML IV SCH (02:17)
[2019-01-20 05:50] LABS: Hematocrit (blood only) 32.8 % (42-52); Hemoglobin 10.4 g/dL (14.0-18.0); Mean Corpuscular Hgb Conc 31.7 g/dL (32-36); Mean Corpuscular Volume 91.6 fL (80-100); Mean Platelet Volume 9.4 fL (7.4-10.4); Platelet Count 188 K/uL (130-400); RDW Coefficient of Variation 13.5 % (11.5-14.5); RDW Standard Deviation 45.4 fL (36.4-46.3); Red Blood Count 3.58 M/uL (4.7-6.1); White Blood Count 10.53 K/uL (4.8-10.8)
[2019-01-20 06:18] LABS: Basophils # (auto) 0.02 K/uL (0-0.2); Basophils % (auto) 0.2 %; Immature Granulocytes # (auto) 0.69 K/uL (0.00-0.02); Immature Granulocytes % (auto) 6.6 %; Lymphocytes % (auto) 15.2 %; Monocytes # (auto) 0.91 K/uL (0.11-0.59); Monocytes % (auto) 8.6 %; Neutrophils # (auto) 7.31 K/uL (1.4-6.5); Neutrophils % (auto) 69.4 %
[2019-01-20 06:26] LABS: Creatinine Clr Calc Pharmacy 94.2 ml/min; Est GFR (African American) 105.2; Est GFR (Non-African American) 90.8
[2019-01-20] MEDS: ALBUT/IPRATROP 3MG/0.5MG NEB 3 ML VIAL NEB SCH ×3 (07:06→15:43)
[2019-01-20] MEDS ORDERED: predniSONE 20 MG TAB PO SCH (09:00)
[2019-01-20] MEDS: HYDROCODONE/ACETAMINOPHEN 7.5/325MG TAB PO SCH (09:12)
[2019-01-20] MEDS: SODIUM CHLORIDE 1 GM TABLET PO SCH (09:12)
[2019-01-20] MEDS: FUROSEMIDE 20 MG TAB PO SCH (09:13)
[2019-01-20] MEDS: DIVALPROEX DELAY RELEASE 250 MG TABEC PO SCH (09:13)
[2019-01-20] MEDS: DIVALPROEX DELAY RELEASE 125 MG TABEC PO SCH (09:15)
[2019-01-20] MEDS: SENNA 8.6 MG TAB PO SCH (09:15)
[2019-01-20] MEDS: HEPARIN SOD 5,000 UNIT/0.5 ML VIAL SQ SCH (09:15)
[2019-01-20] MEDS: METOPROLOL SUCC 50MG EXT REL TAB PO SCH (09:16)
--- NOTE | 2019-01-20 12:44 | Discharge Summary ---
Date of Service January 20, 2019 Admission HPI Per Admitting Provider The patient is a 68-year-old male resident of a local jail, with most recent admission to [facility] from 10/26-11/03, who presents to the emergency department with worsening cough, shortness of breath and reported to be falling asleep a lot during the day. 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 The patient is presently on a course of Augmentin which will end tomorrow. He is reportedly also been more confused over the past week. Principal Diagnosis Acute on chronic respiratory failure with hypoxia Pneumonia Metabolic encephalopathy resolved Discharge Exam The patient appeared chronically ill but stable Vital signs as documented. Head exam is unremarkable. normocephalic, atraumatic Neck is without jugular venous distension, thyromegaly, or lymphademopathy Lungs are with coarse breath sounds bilaterally no wheezes no focal air loss prolonged expiratory phase Cardiac exam reveals Rhythm is regular. Systolic murmur first and second heart sounds normal. Abdominal exam reveals normal bowel sounds, no masses, no organomegaly Extremities are mildly edematous and both pedal pulses are present Neurologic exam is A&Ox3, no focal deficits, strength is equal bilateral she does have altered mentation seems to be learning impaired Skin is warm Dry without bruises or lesions Discharge Data Allergies Allergy/AdvReac Type Severity Reaction Status Date / Time diltiazem Allergy Intermediate rash and Verified 01/17/19 19:51 edema Consultations 01/17/19 21:36 ED Decision to Admit Stat 01/18/19 01:39 Consult Case Management - Discharge Planning Routine Ordered Studies 01/17/19 18:56 CT head/brain wo con Stat Hospital Course (1) Acute and chronic respiratory failure with hypoxia: Acute on chronic respiratory failure with hypoxia. Chest x-ray on admission showing now resolved right lower lobe pneumonia/new left lower lobe pneumonia-- d/c vancomycin IV as patient had negative nasal swab for MRSA and continued Zosyn IV transition to Augmentin at time of discharge Duonebs every 4 hours Prednisone tapering dose Guaifenesin extended release 600 mg p.o. twice daily we will add codeine at night for cough suppression Sputum Gram stain and culture. Chronically on nasal cannula 2 L oxygen, titrate to keep pulse ox around 94%. (2) Pneumonia: As above. (3) Seizure disorder: Seizure disorder/schizophrenia--for some time his mood seems stabilized Has been stable on usual medications of clozapine and Depakote, valproic acid is normal. (4) GERD (gastroesophageal reflux disease): Continue ranitidine, he is without abdominal complaints (5) Altered mental status: Associated with worsening respiratory status and hypoxia, along with mild dehydration, likely metabolic encephalopathy. Resolved (6) BPH (benign prostatic hyperplasia): tamsulosin 0.4 mg and finasteride every evening times (7) Schizoaffective disorder: As above. 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 every evening (10) Hypertension: Continue metoprolol succinate 50 mg p.o. daily control blood pressure mild systolic elevation but overall good control (11) Elevated total protein: Repeat protein is normal likely this is based upon dehydration presentation Total Time Total Time Spent Total Time Spent (In Minutes): greater than 30 minutes were required to prepare discharge Discharge Plan Discharge Items Patient Disposition: Personal Group Home Reason For Visit: PNEUMONIA Discharge Diagnosis: pneumomnia, Copd exacerbation Discharge Goals: Decrease discomfort, Diagnostic testing and Improve disease control Activity: Resume your previous activity Non-emergency contact: Primary Care Provider Call non-emergency contact if: you have any medication questions Follow-up/Referrals: Júnior Orantes MD [Primary Care Provider] - Tremaine Canada DO [Physician] - Diet: Regular Addtl Provider Instructions: pt will need to have close follow up with his baseline changes in his Chest X ray, pulmonary medicine follow up will be beneficial also Prescriptions: New codeine-guaifenesin [Cheratussin AC] 10-100 mg/5 mL Liquid 10 ml PO HS PRN (Reason: cough) Qty: 118 RF: 0 prednisone 10 mg tablet 10 mg PO UD Qty: 40 RF: 0 amoxicillin-pot clavulanate [Augmentin] 875-125 mg tablet 1 tab PO BID Qty: 10 RF: 0 Continued divalproex [Depakote] 250 mg Tablet,Delayed Release (Dr/Ec) 250 mg PO BID RF: 0 clozapine 100 mg Tablet 300 mg PO HS RF: 0 ranitidine HCl [Zantac 75] 75 mg Tablet 75 mg PO BID RF: 0 hydrocodone-acetaminophen 7.5-325 mg Tablet 1 tab PO TID RF: 0 divalproex [Depakote] 125 mg Tablet,Delayed Release (Dr/Ec) 125 mg PO BID RF: 0 finasteride 5 mg Tablet 5 mg PO HS RF: 0 Asmanex Twisthaler 220 mcg (120 doses) Aerosol Powdr Breath Activated 1 inh INHALATION HS RF: 0 B12 5,000-100 mcg Lozenge 1,000 mg Sublingual 2XWK RF: 0 metoprolol succinate 50 mg Tablet Extended Release 24 Hr 50 mg PO DAILY RF: 0 aspirin 81 mg Tablet,Delayed Release (Dr/Ec) 81 mg PO HS RF: 0 magnesium hydroxide [Milk of Magnesia] 400 mg/5 mL Suspension 2 tbsp PO HS PRN (Reason: NO BM IN 48 HOURS.) RF: 0 tamsulosin 0.4 mg Capsule 0.4 mg PO QPM RF: 0 cholecalciferol (vitamin D3) [Vitamin D3] 2,000 unit Capsule 2,000 unit PO HS RF: 0 phenazopyridine 200 mg Tablet 200 mg PO TID PRN (Reason: painful urination) RF: 0 acetaminophen 500 mg Capsule 500 mg PO Q6H MDD 2000 MG/24 HOURS PRN (Reason: Pain) RF: 0 ipratropium-albuterol 0.5 mg-3 mg(2.5 mg base)/3 mL Solution For Nebulization 3 ml NEB Q4H PRN (Reason: SOB) Qty: 30 RF: 0 ferrous sulfate 325 mg (65 mg iron) Tablet,Delayed Release (Dr/Ec) 325 mg PO BID Qty: 60 RF: 0 sodium chloride 1 gram Tablet 1 g PO BID Qty: 60 RF: 0 furosemide 20 mg Tablet 20 mg PO QAM Qty: 30 RF: 0 sennosides [Senokot] 8.6 mg Tablet 17.2 mg PO QAM Qty: 60 RF: 0 Desenex 2 % Powder 1 applic EXT PRN PRN (Reason: rash in groin folds) Qty: 1 RF: 0 polyethylene glycol 3350 [Miralax] 17 gram powder in packet 17 g PO BID PRN (Reason: Constipation) RF: 0 levothyroxine 25 mcg tablet 25 mcg PO QPM RF: 0 Stand-Alone Forms: [facility] Discharge Orders: Discharge Order (Routine); Ordered 01/20/19 Ordered By: Roldan Jo Admission Data Admit Date/Time: 01/17/19 23:48 Attending Provider: Roldan Jo Admit Provider: Lex Jauregui Primary Care Provider: Júnior Orantes Other Providers: Lex Jauregui Service: Medical Other Interventions: Discharge Summary Assessment (RN) Last Done: 01/20/19 11:23
== END 2019-01-20 14:00 | disposition home or self-care (01) | DRG 193 ==
LOC: ED 18:12 → 2N 23:48 → SUATTDRO 23:48 → 2N 01-18 00:48

== ENCOUNTER 2019-07-12 11:56 | Inpatient (IN) ==
[2019-07-12] MEDS ORDERED: ALBUT/IPRATROP 3MG/0.5MG NEB 3 ML VIAL INH STA (12:33)
--- NOTE | 2019-07-12 12:53 | XRay Report ---
XR chest 1V portable CLINICAL HISTORY: SOB dyspnea COMPARISON STUDY: 07/09/2019 FINDINGS: Stable bilateral parenchymal fibrotic change. This again predominates in the upper lobe reg ions bilaterally. No evidence for a superimposed or acute process. Metallic fragments within left upper quadrant of the abdomen which have been present previously. IMPRESSION: Chronic change. No acute process. The above report was generated using voice recognition software. It may contain grammatical, syntax or spelling errors. Electronically signed by: Jose Miguel Corrigan M.D. 07/12/2019 12:52 PM
[2019-07-12 13:33] LABS: Base Excess VBG 6.1 mEq/L; HCO3 VBG 34 mmol/L; PCO2 VBG 71 mmHg (38-50); PO2 VBG 25 mmHg
[2019-07-12 13:37] LABS: Hematocrit (blood only) 37.1 % (42-52); Hemoglobin 11.2 g/dL (14.0-18.0); Mean Corpuscular Hemoglobin 29.2 pg (25-34); Mean Corpuscular Hgb Conc 30.2 g/dL (32-36); Mean Corpuscular Volume 96.6 fL (80-100); Mean Platelet Volume 9.5 fL (7.4-10.4); Platelet Count 154 K/uL (130-400); RDW Coefficient of Variation 13.5 % (11.5-14.5); RDW Standard Deviation 47.5 fL (36.4-46.3); Red Blood Count 3.84 M/uL (4.7-6.1); White Blood Count 8.37 K/uL (4.8-10.8)
[2019-07-12 13:47] LABS: Partial Thromboplastin Ratio 1.3; Partial Thromboplastin Time 35.6 Seconds (21.0-31.0); Prothrombin Time 10.6 Seconds (9.0-12.0)
[2019-07-12 13:48] LABS: Oxygen Saturation VBG < 60.0 %
[2019-07-12 13:49] LABS: Alanine Aminotransferase 18 U/L (12-78); Aspartate Aminotransferase 18 U/L (15-37); BUN Creatinine Ratio 26.8 (10-20); Blood Urea Nitrogen 31 mg/dl (7-18); Calcium 8.9 mg/dl (8.5-10.1); Carbon Dioxide 34 mmol/L (21-32); Chloride 102 mmol/L (98-107); Est GFR (African American) 74.9; Est GFR (Non-African American) 64.6; Glucose 81 mg/dl (70-99); Magnesium 2.4 mg/dl (1.8-2.4); Potassium 4.8 mmol/L (3.5-5.1); Sodium 139 mmol/L (136-145)
[2019-07-12 13:54] LABS: Albumin Globulin Ratio 0.7 (0.9-2); Alkaline Phosphatase 68 U/L (45-117); Bilirubin,Total 0.3 mg/dl (0.2-1); Globulin 4.5 gm/dl (2.5-4.0); NT Pro B Type Natriuretic Pept 1150 pg/ml (0-900); Total Protein 7.5 gm/dl (6.4-8.2); Troponin I < 0.015 ng/ml (0-0.045)
[2019-07-12 14:08] LABS: ALC (manual) 1.51 K/uL (1.2-3.4); ANC (manual) 5.19 K/uL (1.4-6.5); Eosinophils # (manual) 0.08 K/uL (0-0.5); Eosinophils % (manual) 0.9 %; Lymphocytes # (manual) 1.51 K/uL (1.2-3.4); Lymphocytes % (manual) 18.1 %; Metamyelocytes # (manual) 0.22 K/uL (0-0); Metamyelocytes % (manual) 2.6 %; Monocytes % (manual) 9.5 %; Myelocytes # (manual) 0.58 K/uL (0-0); Myelocytes % (manual) 6.9 %; Neutrophils # (manual) 5.19 K/uL (1.4-6.5); RBC Morphology Unremarkable
[2019-07-12] MEDS ORDERED: IOVERSOL 100ml IV PRN (14:29)
--- NOTE | 2019-07-12 14:38 | Emergency Department Note ---
Entered by Paulino Gonzalez acting as a scribe for History of Present Illness General Chief complaint: Cough Stated complaint: COUGH,POSSIBLY PNEUMONIA Time Seen by Provider: 07/12/19 12:12 Source: patient History of Present Illness Provider complaint: Cough Onset (ago): week(s) (Few weeks) Location: chest Radiation: non-radiation Pain Consistency: + constant Maximum Pain Intensity: 7 Current Pain Intensity: 7 Relieved By: + none Exacerbated By: + none Associated symptoms: + chest pain, + cough, + shortness of breath and + other (Throat pain, nose pain, ) The patient is a 68 year old male who presents to the Emergency Room with complaints of a constant cough that has been persistent for the past few weeks. The patient states it is a productive cough where he initially was producing a white mucous but now it is yellow. The patient also reports that he has some chest tightness and shortness of breath that has been worsening since the onset of the cough. The patient adds that he recently developed throat and nose pain as well. He rates his symptoms as a 7/10 and notes nothing has helped relieve them. The patient reports he saw his doctor last week and had a chest x-ray done that showed some infiltrate so he was prescribed a Z-Pack and told to double his diuretic for two days. The patient states he finished the Z-pack, however his symptoms did not improve so he went back to his doctors office where a repeat chest x-ray showed fluid on his lungs. As a result the patient was instructed to double his diuretic for 2 more days. The patient states that he only uses oxygen at night for his history of sleep apnea. He also noted that he has had pneumonia 3 times since last fall with his last bout being in December 2018. The patient denies any new musculoskeletal pain or abdominal pain. Home Medications Home Medications Medication Instructions Recorded Confirmed Type Asmanex Twisthaler 1 inh INHALATION HS 08/30/18 07/12/19 History acetaminophen 500 mg PO Q6H PRN MDD 2000 MG/24 08/30/18 07/12/19 History HOURS aspirin 81 mg PO HS 08/30/18 07/12/19 History cholecalciferol (vitamin D3) 2,000 unit PO PM 08/30/18 07/12/19 History [Vitamin D3] clozapine 300 mg PO HS 08/30/18 07/12/19 History divalproex [Depakote] 125 mg PO BID 10/31/18 09/12/19 History divalproex [Depakote] 250 mg PO BID 08/30/18 07/12/19 History magnesium hydroxide [Milk of 2 tbsp PO HS PRN 08/30/18 07/12/19 History Magnesia] metoprolol succinate 50 mg PO QAM 08/30/18 07/12/19 History ranitidine HCl [Zantac 75] 75 mg PO BID 08/30/18 07/12/19 History tamsulosin 0.4 mg PO QPM 08/30/18 07/12/19 History ipratropium-albuterol 3 ml NEB Q4H PRN #30 ml 09/08/18 07/12/19 Rx ferrous sulfate 325 mg PO BID #60 tab 11/04/18 07/12/19 Rx furosemide 20 mg PO QAM #30 tab 11/04/18 07/12/19 Rx sennosides [Senokot] 17.2 mg PO QAM #60 tab 11/04/18 07/12/19 Rx sodium chloride 1 g PO BID #60 tab 11/04/18 07/12/19 Rx levothyroxine 25 mcg PO QPM 01/17/19 07/12/19 History polyethylene glycol 3350 [Miralax] 17 g PO BID PRN 01/17/19 07/12/19 History hydrocodone 7.5 mg-acetaminophen 1 tab PO TID #90 tab 07/09/19 07/12/19 Rx 325 mg tablet finasteride 5 mg PO HS 07/12/19 07/12/19 History Allergies Allergy/AdvReac Type Severity Reaction Status Date / Time diltiazem Allergy Intermediate rash and Verified 07/12/19 13:43 edema fentanyl AdvReac Confusion Verified 07/12/19 13:43 Past Med/Surg History Medical History Vitamin D deficiency Tinea corporis Seborrheic keratosis Prostatitis Paranoid schizophrenia Obstructive sleep apnea Obesity Mycobacterium avium infection Malignant essential hypertension Leukocytosis Left ventricular hypertrophy Joint pain, hip Inappropriate ADH syndrome Hyperglobulinemia Hypercholesterolemia Hypercalcemia Hiatal hernia Hemorrhoids Edema Dysphagia Congestive heart failure (CHF) Chronic kidney disease (CKD), stage III (moderate) CAD in [place] artery Benign prostatic hyperplasia with urinary obstruction Avascular necrosis Asymptomatic hyperuricemia Metabolic encephalopathy Discharge planning issues SOLANGE (mycobacterium avium-intracellulare) Chronic diastolic CHF (congestive heart failure) Dislocation of shoulder Aspiration pneumonia Anemia Acute hyponatremia DVT prophylaxis Sepsis Hypertension GERD (gastroesophageal reflux disease) BPH (benign prostatic hyperplasia) Seizure disorder Acute respiratory failure with hypoxia Pneumonia Abnormal chest CT Anemia Diabetes mellitus (01/08/13) Hyperammonemia Hyperkalemia, diminished renal excretion Hyponatremia Surgical History Encounter for drug screening History of breast surgery History of cardiac cath History of cataract surgery History of chest x-ray History of colonoscopy Family History Father Prostate cancer Mother Lung cancer Social History Preferred Language: [place] Communication Ability: Effective Visual Impairment: No Limitations Hearing Ability: Normal Traffic Analysis Technician Required: No Beliefs That Will Affect Care: None marital status: Single Current Living Situation: Personal Care Facility Current Living Situation Comment: [facility] current occupational status: retired Feels Safe at Home: Yes Smoking Status: Former smoker Second Hand Exposure: No ; Hx Alcohol Use: No Hx Substance Use: No Review of Systems See HPI for pertinent positives & negatives. and A total of 10 systems reviewed and were otherwise negative Physical Exam Vital Signs Vital Signs - 24 hr 07/12/19 12:01 07/12/19 12:52 Temperature 36.6 C Temperature Source Oral Sepsis Recent Fever Within 48 Hours No Sepsis New/Unexplained Change in Mental Status No Sepsis Action Taken by Nursing No Action Required Pulse Rate 84 Respiratory Rate 18 23 Respiratory Effort / Characteristics Non-Labored Spontaneous Blood Pressure 117/60 Blood Pressure Mean 79 Pulse Oximetry 92 89 L Oxygen Delivery Method Room Air Room Air GENERAL: Patient is in no acute distress. HEENT: No acute trauma, normocephalic atraumatic, mucous membranes moist, no nasal congestion, no scleral icterus. NECK: No stridor, no adenopathy, no meningismus, trachea is midline. LUNGS: Diminished breath sounds bilaterally, no respiratory distress, crackles in the lower lobes bilaterally, no wheezing. HEART: Without murmurs gallops or rubs, regular rate and rhythm. ABDOMEN: Soft, nontender, bowel sounds positive, no hernias, no peritonitis. EXTREMITIES: No cyanosis, full range of motion of all the joints without pain or difficulty, no signs for acute trauma. Mild pedal edema. NEUROLOGIC: Oriented x 3, no acute motor or sensory deficits, no focal weakness. SKIN: No rash, no jaundice, no diaphoresis. Course 1218: Past medical records reviewed. The patient was evaluated in room C08, and a complete history and physical examination were performed. 1452: I reevaluated the patient and updated both him and his family on results. We also discussed the treatment plan and they all fully agreed. 1455: I spoke to Dr. Tyson Peña [facility] Hospitalist about the patient's case. She is going to accept him for further evaluation. Consultations Consultation #1: I spoke to Dr. Tyson Peña [facility] Hospitalist about the patient's case. She is going to accept him for further evaluation. 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 Medical Records Attestation: I reviewed the patient's medical records. Home Medications Current Medication List: was personally reviewed by me Laboratory Data Attestation: I reviewed the patient's lab results. Result diagrams: 07/12/19 13:22 07/12/19 13:14 Lab Results 07/12/19 07/12/19 07/12/19 Range/Units 13:14 13:14 13:14 WBC (4.8-10.8) K/uL RBC (4.7-6.1) M/uL Hgb (14.0-18.0) g/dL Hct (42-52) % MCV (80-100) fL MCH (25-34) pg MCHC (32-36) g/dL RDW Std Deviation (36.4-46.3) fL RDW Coeff of Nakia (11.5-14.5) % Plt Count (130-400) K/uL MPV (7.4-10.4) fL Neutrophils % (Manual) % Lymphocytes % (Manual) % Monocytes % (Manual) % Eosinophils % (Manual) % Metamyelocytes % (Man) % Myelocytes % (Man) % Neutrophils # (Manual) (1.4-6.5) K/uL Total Absolute Neuts (1.4-6.5) K/uL Lymphocytes # (Manual) (1.2-3.4) K/uL Total Abs Lymphocytes (1.2-3.4) K/uL Monocytes # (Manual) (0.11-0.59) K/uL Eosinophils # (Manual) (0-0.5) K/uL Metamyelocytes # (Man) (0-0) K/uL Myelocytes # (Manual) (0-0) K/uL RBC Morphology PT (9.0-12.0) Seconds INR (0.9-1.1) APTT (21.0-31.0) Seconds PTT Ratio VBG pH (7.36-7.41) VBG pCO2 (38-50) mmHg VBG pO2 mmHg VBG HCO3 mmol/L VBG O2 Saturation % VBG Base Excess mEq/L Barometric Pressure mm/Hg Sodium (136-145) mmol/L Potassium (3.5-5.1) mmol/L Chloride (98-107) mmol/L Carbon Dioxide (21-32) mmol/L Anion Gap (3-11) BUN (7-18) mg/dl Creatinine (0.6-1.4) mg/dl Est Cr Clr Drug Dosing ml/min Est GFR ( Amer) Est GFR (Non-Af Amer) BUN/Creatinine Ratio (10-20) Glucose (70-99) mg/dl Lactate 1.2 (0.4-2.0) mmol/L Calcium (8.5-10.1) mg/dl Magnesium (1.8-2.4) mg/dl Total Bilirubin (0.2-1) mg/dl AST (15-37) U/L ALT (12-78) U/L Alkaline Phosphatase (45-117) U/L Ammonia 42.4 H (11-32) umol/L Troponin I (0-0.045) ng/ml NT-Pro-B Natriuret Pep (0-900) pg/ml Total Protein (6.4-8.2) gm/dl Albumin (3.4-5.0) gm/dl Globulin (2.5-4.0) gm/dl Albumin/Globulin Ratio (0.9-2) Valproic Acid 75 (50-100) mcg/ml 07/12/19 07/12/19 07/12/19 Range/Units 13:14 13:14 13:14 WBC (4.8-10.8) K/uL RBC (4.7-6.1) M/uL Hgb (14.0-18.0) g/dL Hct (42-52) % MCV (80-100) fL MCH (25-34) pg MCHC (32-36) g/dL RDW Std Deviation (36.4-46.3) fL RDW Coeff of Nakia (11.5-14.5) % Plt Count (130-400) K/uL MPV (7.4-10.4) fL Neutrophils % (Manual) % Lymphocytes % (Manual) % Monocytes % (Manual) % Eosinophils % (Manual) % Metamyelocytes % (Man) % Myelocytes % (Man) % Neutrophils # (Manual) (1.4-6.5) K/uL Total Absolute Neuts (1.4-6.5) K/uL Lymphocytes # (Manual) (1.2-3.4) K/uL Total Abs Lymphocytes (1.2-3.4) K/uL Monocytes # (Manual) (0.11-0.59) K/uL Eosinophils # (Manual) (0-0.5) K/uL Metamyelocytes # (Man) (0-0) K/uL Myelocytes # (Manual) (0-0) K/uL RBC Morphology PT 10.6 (9.0-12.0) Seconds INR 1.0 (0.9-1.1) APTT 35.6 H (21.0-31.0) Seconds PTT Ratio 1.3 VBG pH 7.30 L (7.36-7.41) VBG pCO2 71 H (38-50) mmHg VBG pO2 25 mmHg VBG HCO3 34 mmol/L VBG O2 Saturation < 60.0 % VBG Base Excess 6.1 mEq/L Barometric Pressure 734.8 mm/Hg Sodium 139 (136-145) mmol/L Potassium 4.8 (3.5-5.1) mmol/L Chloride 102 (98-107) mmol/L Carbon Dioxide 34 H (21-32) mmol/L Anion Gap 3.0 (3-11) BUN 31 H (7-18) mg/dl Creatinine 1.17 (0.6-1.4) mg/dl Est Cr Clr Drug Dosing 67.0 ml/min Est GFR ( Amer) 74.9 Est GFR (Non-Af Amer) 64.6 BUN/Creatinine Ratio 26.8 H (10-20) Glucose 81 (70-99) mg/dl Lactate (0.4-2.0) mmol/L Calcium 8.9 (8.5-10.1) mg/dl Magnesium 2.4 (1.8-2.4) mg/dl Total Bilirubin 0.3 (0.2-1) mg/dl AST 18 (15-37) U/L ALT 18 (12-78) U/L Alkaline Phosphatase 68 (45-117) U/L Ammonia (11-32) umol/L Troponin I < 0.015 (0-0.045) ng/ml NT-Pro-B Natriuret Pep 1150 H (0-900) pg/ml Total Protein 7.5 (6.4-8.2) gm/dl Albumin 3.0 L (3.4-5.0) gm/dl Globulin 4.5 H (2.5-4.0) gm/dl Albumin/Globulin Ratio 0.7 L (0.9-2) Valproic Acid (50-100) mcg/ml 07/12/19 Range/Units 13:22 WBC 8.37 (4.8-10.8) K/uL RBC 3.84 L (4.7-6.1) M/uL Hgb 11.2 L (14.0-18.0) g/dL Hct 37.1 L (42-52) % MCV 96.6 (80-100) fL MCH 29.2 (25-34) pg MCHC 30.2 L (32-36) g/dL RDW Std Deviation 47.5 H (36.4-46.3) fL RDW Coeff of Nakia 13.5 (11.5-14.5) % Plt Count 154 (130-400) K/uL MPV 9.5 (7.4-10.4) fL Neutrophils % (Manual) 62.0 % Lymphocytes % (Manual) 18.1 % Monocytes % (Manual) 9.5 % Eosinophils % (Manual) 0.9 % Metamyelocytes % (Man) 2.6 % Myelocytes % (Man) 6.9 % Neutrophils # (Manual) 5.19 (1.4-6.5) K/uL Total Absolute Neuts 5.19 (1.4-6.5) K/uL Lymphocytes # (Manual) 1.51 (1.2-3.4) K/uL Total Abs Lymphocytes 1.51 (1.2-3.4) K/uL Monocytes # (Manual) 0.80 H (0.11-0.59) K/uL Eosinophils # (Manual) 0.08 (0-0.5) K/uL Metamyelocytes # (Man) 0.22 H (0-0) K/uL Myelocytes # (Manual) 0.58 H (0-0) K/uL RBC Morphology Unremarkable PT (9.0-12.0) Seconds INR (0.9-1.1) APTT (21.0-31.0) Seconds PTT Ratio VBG pH (7.36-7.41) VBG pCO2 (38-50) mmHg VBG pO2 mmHg VBG HCO3 mmol/L VBG O2 Saturation % VBG Base Excess mEq/L Barometric Pressure mm/Hg Sodium (136-145) mmol/L Potassium (3.5-5.1) mmol/L Chloride (98-107) mmol/L Carbon Dioxide (21-32) mmol/L Anion Gap (3-11) BUN (7-18) mg/dl Creatinine (0.6-1.4) mg/dl Est Cr Clr Drug Dosing ml/min Est GFR ( Amer) Est GFR (Non-Af Amer) BUN/Creatinine Ratio (10-20) Glucose (70-99) mg/dl Lactate (0.4-2.0) mmol/L Calcium (8.5-10.1) mg/dl Magnesium (1.8-2.4) mg/dl Total Bilirubin (0.2-1) mg/dl AST (15-37) U/L ALT (12-78) U/L Alkaline Phosphatase (45-117) U/L Ammonia (11-32) umol/L Troponin I (0-0.045) ng/ml NT-Pro-B Natriuret Pep (0-900) pg/ml Total Protein (6.4-8.2) gm/dl Albumin (3.4-5.0) gm/dl Globulin (2.5-4.0) gm/dl Albumin/Globulin Ratio (0.9-2) Valproic Acid (50-100) mcg/ml Imaging Data Radiologist's Impression: Radiology results as stated below per my review and the radiologist's interpretation: XR chest 1V portable CLINICAL HISTORY: SOB dyspnea COMPARISON STUDY: 07/09/2019 FINDINGS: Stable bilateral parenchymal fibrotic change. This again predominates in the upper lobe regions bilaterally. No evidence for a superimposed or acute process. Metallic fragments within left upper quadrant of the abdomen which have been present previously. IMPRESSION: Chronic change. No acute process. The above report was generated using voice recognition software. It may contain grammatical, syntax or spelling errors. Electronically signed by: Jose Miguel Corrigan M.D. 07/12/2019 12:[address] angio chest PE protocol CT DOSE: 744.56 mGy.cm HISTORY: Dyspnea PE also check for infiltrate TECHNIQUE: Multiaxial CT images of the chest were performed following the intravenous administration of contrast to evaluate the pulmonary arteries. Maximal intensity projection images were also obtained. A dose lowering technique was utilized adhering to the principles of ALARA. COMPARISON STUDY: 10/13/2018 FINDINGS: Pulmonary vasculature enhances appropriately. No major filling defect is appreciated. Findings of diffuse bilateral parenchymal fibrotic and bronchiectatic changes are noted. Overall distribution is unaltered compared to the prior exam. Left benders cyst overlying the right pulmonary apex is unchanged. Moderate mediastinal adenopathy is nonprogressive and is similar. Mild right and to a lesser extent left basilar pleural thickening is nonprogressive. IMPRESSION: 1. No evidence for pulmonary embolus. 2. Diffuse chronic bilateral parenchymal fibrotic and bronchiectatic change. 3. Stable bleb right pulmonary apex. 4. No evidence for a new interval or superimposed acute inflammatory process. The above report was generated using voice recognition software. It may contain grammatical, syntax or spelling errors. Electronically signed by: Jose Miguel Corrigan M.D. 07/12/2019 2:43 PM ECG Data Attestation: I personally reviewed and interpreted this ECG as follows: Indication: SOB/dyspnea Rate (beats per minute): 82 Rhythm: sinus rhythm Findings: + other (QTc 450) and + 1st degree AV block; no ST elevation and no acute ischemic change Blood Pressure Blood Pressure Findings: Normal blood pressure MDM Narrative There is no leukocytosis. A mild anemia was present but this is baseline looking back at previous testing. No coagulopathy. VBG does show a mild amount of respiratory acidosis with a pH of 7.3 and a PCO2 of 71. No significant electrolyte abnormality or kidney failure. Lactic acid level was not elevated m aking sepsis less likely. No worrisome liver enzyme elevations. Ammonia level is slightly elevated however, this value is lower than recent testing. BNP was elevated consistent with fluid overload. Valproic acid level was not toxic. Chest film showed some chronic change, no real findings of infiltrate or pneumothorax. Chest CT shows chronic change, no PE, no pneumonia. The patient was given a DuoNeb, he did drop his O2 saturation during his ED stay, he required O2 supplementation. The patient presents with increasing cough and congestion as well as increasing dyspnea. He has seen his outpatient provider twice. Despite outpatient treatment, he is still short of breath, he is not improving. I do think a hospital stay is warranted. Patient likely has an acute bronchitis with a flare of his COPD. I suspect he has some mild amount of CHF as well. I did speak to the patient and his family. I spoke with case management. The on-call hospitalist was consulted. Impression & Plan Hypoxia, Cough, Shortness of breath, Failure of outpatient treatment, Acute bronchitis Discharge Plan Visit Data Chief Complaint: Cough Stated Complaint: COUGH,POSSIBLY PNEUMONIA ED Provider: Faustino Gale Discharge Problem: Hypoxia, Cough, Shortness of breath, Failure of outpatient treatment, Acute bronchitis Patient Disposition: Being Evaluated by Hospitalist Forms Stand Alone Forms: My [facility] Prescriptions Prescriptions: No Action hydrocodone-acetaminophen 7.5-325 mg tablet 1 tab PO TID Qty: 90 RF: 0 divalproex [Depakote] 250 mg Tablet,Delayed Release (Dr/Ec) 250 mg PO BID RF: 0 clozapine 100 mg Tablet 300 mg PO HS RF: 0 ranitidine HCl [Zantac 75] 75 mg Tablet 75 mg PO BID RF: 0 divalproex [Depakote] 125 mg Tablet,Delayed Release (Dr/Ec) 125 mg PO BID RF: 0 Asmanex Twisthaler 220 mcg (120 doses) Aerosol Powdr Breath Activated 1 inh INHALATION HS RF: 0 metoprolol succinate 50 mg Tablet Extended Release 24 Hr 50 mg PO QAM RF: 0 aspirin 81 mg Tablet,Delayed Release (Dr/Ec) 81 mg PO HS RF: 0 magnesium hydroxide [Milk of Magnesia] 400 mg/5 mL Suspension 2 tbsp PO HS PRN (Reason: NO BM IN 48 HOURS.) RF: 0 tamsulosin 0.4 mg Capsule 0.4 mg PO QPM RF: 0 cholecalciferol (vitamin D3) [Vitamin D3] 2,000 unit Capsule 2,000 unit PO PM RF: 0 acetaminophen 500 mg Capsule 500 mg PO Q6H MDD 2000 MG/24 HOURS PRN (Reason: Pain) RF: 0 ipratropium-albuterol 0.5 mg-3 mg(2.5 mg base)/3 mL Solution For Nebulization 3 ml NEB Q4H PRN (Reason: SOB) Qty: 30 RF: 0 ferrous sulfate 325 mg (65 mg iron) Tablet,Delayed Release (Dr/Ec) 325 mg PO BID Qty: 60 RF: 0 sodium chloride 1 gram Tablet 1 g PO BID Qty: 60 RF: 0 furosemide 20 mg Tablet 20 mg PO QAM Qty: 30 RF: 0 sennosides [Senokot] 8.6 mg Tablet 17.2 mg PO QAM Qty: 60 RF: 0 polyethylene glycol 3350 [Miralax] 17 gram powder in packet 17 g PO BID PRN (Reason: Constipation) RF: 0 levothyroxine 25 mcg tablet 25 mcg PO QPM RF: 0 finasteride 5 mg tablet 5 mg PO HS RF: 0 Referrals Referrals: Jong Weir MD [Primary Care Provider] - Discharge Problem: Acute bronchitis Qualifiers: Bronchitis organism: unspecified organism Qualified Code(s): J20.9 - Acute bronchitis, unspecified The scribe's documentation has been prepared under my direction and personally reviewed by me in its entirety. I confirm that the note above accurately reflects all work, treatment, procedures, and medical decision making performed by me.
--- NOTE | 2019-07-12 14:44 | CT Scan Report ---
CT angio chest PE protocol CT DOSE: 744.56 mGy.cm HISTORY: Dyspnea PE also check for infiltrate TECHNIQUE: Multiaxial CT images of the chest were performed following the intravenous administration of contrast to evaluate the pulmonary arteries. Maximal intensity projection images were also obtaine d. A dose lowering technique was utilized adhering to the principles of ALARA. COMPARISON STUDY: 10/13/2018 FINDINGS: Pulmonary vasculature enhances appropriately. No major filling defect is appreciated. Findings of diffuse bilateral parenchymal fibrotic and bronchiectatic changes are noted. Overall dist ribution is unaltered compared to the prior exam. Left benders cyst overlying the right pulmonary apex is unchanged. Moderate mediastinal adenopathy is nonprogressive and is similar. Mild right and to a lesser extent l eft basilar pleural thickening is nonprogressive. IMPRESSION: 1. No evidence for pulmonary embolus. 2. Diffuse chronic bilateral parenchymal fibrotic and bronchiectatic change. 3. Stable bleb right pulmonary apex. 4. No evidence for a new interval or superimposed acute inflammatory process. The above report was generated using voice recognition software. It may contain grammatical, syntax or spelling errors. Electronically signed by: Jose Miguel Corrigan M.D. 07/12/2019 2:43 PM
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
[2019-07-12] MEDS ORDERED: FUROSEMIDE 20 MG in SYRINGE 0 ML IV STA (16:15)
[2019-07-12] MEDS ORDERED: SODIUM POLYSTYRENE SULFONATE 30 GM/120 ML UDP PO STA (16:15)
[2019-07-12] MEDS ORDERED: SODIUM POLYSTYRENE SULFONATE 15G/60ML SUSP PO ONE (16:30)
[2019-07-12] MEDS ORDERED: FUROSEMIDE 40 MG/4 ML VIAL IV ONE (16:33)
[2019-07-12] MEDS ORDERED: LACTULOSE SYRUP 30 GM/45 ML UDP PO STA (18:17)
[2019-07-12] MEDS ORDERED: ACETAMINOPHEN 325 MG TAB PO PRN (18:17)
[2019-07-12] MEDS ORDERED: ONDANSETRON INJ 2 MG/ML 2 ML VIAL IV PRN (18:17)
[2019-07-12] MEDS ORDERED: ALBUT/IPRATROP 3MG/0.5MG NEB 3 ML VIAL NEB PRN (18:17)
[2019-07-12] MEDS ORDERED: POLYETHYLENE (MIRALAX) 17 GM PACK PO PRN (18:17)
[2019-07-12] MEDS: ALBUT/IPRATROP 3MG/0.5MG NEB 3 ML VIAL NEB SCH ×2 (19:19→23:10)
[2019-07-12] MEDS: methylPREDNISolone 60 MG in SYRINGE 0 ML IV SCH (20:07)
[2019-07-12] MEDS: TAMSULOSIN HCL 0.4 MG CAP PO SCH (20:13)
[2019-07-12] MEDS: FERROUS SULFATE 325 MG TAB PO SCH (20:13)
[2019-07-12] MEDS: LACTULOSE SYRUP 20 GM/30 ML UDC PO SCH (20:13)
[2019-07-12] MEDS: LEVOTHYROXINE SODIUM 25 MCG TABLET PO SCH (20:13)
[2019-07-12] MEDS: guaiFENesin 600 MG TABCR PO SCH (20:14)
[2019-07-12] MEDS: DIVALPROEX DELAY RELEASE 250 MG TABEC PO SCH (20:14)
[2019-07-12] MEDS: DIVALPROEX DELAY RELEASE 125 MG TABEC PO SCH (20:14)
[2019-07-12] MEDS: ASPIRIN 81 MG ECTAB PO SCH (20:14)
[2019-07-12] MEDS: cloZAPine 100 MG TAB PO SCH (20:15)
[2019-07-12] MEDS: SODIUM CHLORIDE 1 GM TABLET PO SCH (20:16)
[2019-07-12] MEDS: FINASTERIDE 5 MG TAB PO SCH (20:16)
[2019-07-12] MEDS: CHOLECALCIFEROL 1,000 UNITS TAB PO SCH (20:16)
[2019-07-12] MEDS: HYDROCODONE/ACETAMINOPHEN 7.5/325MG TAB PO SCH (20:20)
[2019-07-13] MEDS: LACTULOSE SYRUP 20 GM/30 ML UDC PO SCH ×12 (00:06→21:57)
[2019-07-13] MEDS: ALBUT/IPRATROP 3MG/0.5MG NEB 3 ML VIAL NEB SCH ×6 (03:32→23:12)
[2019-07-13 06:23] LABS: Magnesium 2.6 mg/dl (1.8-2.4); Phosphorus 4.3 mg/dl (2.5-4.9)
[2019-07-13] MEDS: methylPREDNISolone 60 MG in SYRINGE 0 ML IV SCH ×2 (06:48→20:55)
[2019-07-13] MEDS: DIVALPROEX DELAY RELEASE 125 MG TABEC PO SCH ×2 (08:48→20:57)
[2019-07-13] MEDS: METOPROLOL SUCC 50MG EXT REL TAB PO SCH (08:48)
[2019-07-13] MEDS: SODIUM CHLORIDE 1 GM TABLET PO SCH ×2 (08:49→21:03)
[2019-07-13] MEDS: DIVALPROEX DELAY RELEASE 250 MG TABEC PO SCH ×2 (08:49→20:56)
[2019-07-13] MEDS: guaiFENesin 600 MG TABCR PO SCH ×2 (08:49→21:03)
[2019-07-13] MEDS: ENOXAPARIN INJ 40 MG/0.4 ML SYR SQ SCH (08:49)
[2019-07-13] MEDS: SENNA 8.6 MG TAB PO SCH (08:49)
[2019-07-13] MEDS: FERROUS SULFATE 325 MG TAB PO SCH ×2 (08:49→20:57)
[2019-07-13] MEDS: HYDROCODONE/ACETAMINOPHEN 7.5/325MG TAB PO SCH ×3 (09:04→21:08)
[2019-07-13 15:20] LABS: Base Excess VBG 4.4 mEq/L; Oxygen Saturation VBG 91.3 %; pH VBG 7.36 (7.36-7.41)
[2019-07-13 15:27] LABS: BUN Creatinine Ratio 21.3 (10-20); Calcium 8.4 mg/dl (8.5-10.1); Creatinine Clr Calc Pharmacy 61.8 ml/min; Est GFR (African American) 69.1; Est GFR (Non-African American) 59.6; Potassium 4.9 mmol/L (3.5-5.1)
[2019-07-13] MEDS: cloZAPine 100 MG TAB PO SCH (20:56)
[2019-07-13] MEDS: ASPIRIN 81 MG ECTAB PO SCH (20:59)
[2019-07-13] MEDS: TAMSULOSIN HCL 0.4 MG CAP PO SCH (20:59)
[2019-07-13] MEDS: CHOLECALCIFEROL 1,000 UNITS TAB PO SCH (21:02)
[2019-07-13] MEDS: LEVOTHYROXINE SODIUM 25 MCG TABLET PO SCH (21:03)
[2019-07-13] MEDS: FINASTERIDE 5 MG TAB PO SCH (21:03)
--- NOTE | 2019-07-13 22:52 | Hospitalist Progress Note ---
Date of Service July 13, 2019 Assessment & Plan (1) Acute and chronic respiratory failure with hypoxia: (2) Shortness of breath: (3) Pneumonia: (4) Acute bronchitis: (5) Obstructive sleep apnea: - Admit to PCU - Pulmonary toilet with Duonebs, mucinex, flutter, incentive spirometry - Solumedrol 60 mg IV BID - Hold on antibiotics at this time as pt completed zpack on Tuesday - Hx of tobacco use over 30 years ago, smoked 1ppd x 10 years, possible component of COPD - Send sputum for culture if can be produced however had dry cough while at bedside - CXR and CTA chest reviewed and were negative for pleural effusion and embolism. Xray from outpatient on Tuesday showed small pleural effusion per outpatient notes. - Continue HS o2, does not wear while awake, currently requiring O2. Titrate off. Will need ambulatory pulse ox. Will continue to monitor AND HOLD OFF further antibiotics. Patient appears to have history of emphysema. If patient improves tomorrow, may consider discharge. (6) Hypertension: - Cont metoprolol 50 mg QPM - BP well controlled (7) Hypercholesterolemia: - Cont statin therapy (8) CAD in [place] artery: (9) Congestive heart failure (CHF): - Cont asa, BB, lasix 20 mg IV now with lung findings on exam. - Check 2D echo as I cannot find anything that is recent, there is an echo from 2016 which was normal, but since then the patient has been placed on diuretics which would lead me to believe there is at least systolic dysfunction. - follow (10) Hypothyroid: - Continue levothyroxine (11) Anemia: - Baseline hgb of 11, today is 11.2, monitor with am cbc - Continue iron supplementation (12) GERD (gastroesophageal reflux disease): - Cont PPI (13) Seizure disorder: - Continue depakote 375 mg BID, clozapine 300 mg HS - Check depakote level (14) BPH (benign prostatic hyperplasia): - Continue finasteride (15) Hyperammonemia: - Ammonia elevated at 42.4 upon admission, pt is somnolent during my exam but awakens easily to verbal stimuli. Caregiver from [facility] [place] also notes he has increased fatigue and somnolence today. - Will order dose of lactulose now, then continue Q2H until BM - pt is awake enough to drink it - Recheck level with am labs (16) DVT prophylaxis: teds, scds, lovenox subq Subjective Patient reports no new symptoms today. Review of Systems Review of Systems: Constitutional: No fever, sweats or chills Eyes: No diplopia, no worsening or blurred vision ENT: normal hearing, no trouble swallowing Respiratory: As per HPI Cardiovascular: No chest pain, tightness or palpitations Abdomen: No pain, nausea, vomiting, diarrhea, + constipation, last BM was 5 days ago Musculoskeletal: No joint pain, calf pain, swelling Neurologic: No weakness, numbness/tingling, or balance problems Psychiatric: No anxiety or depression Skin: No rash or itch Physical Exam Physical Exam: General: awake, alert, no apparent distress, + somnolent during exam but awakens easily to questions Head: Normocephalic, atraumatic ENT: PERRL, EOMI, no pharyngeal exudate, mucous membranes dry, + dentures Chest: On 2.5 L via NC, + coarse breath sounds throughout, Cardiac: Regular rate and rhythm, no murmur, no JVD, normal peripheral pulses, good capillary refill Abdominal: NABS x 4 quadrants, soft, nontender to palpation, no rebound, guarding or tenderness Extremities: Normal inspection, no peripheral edema or erythema, calfs nontender to palpation Psych: pleasant mood and affect Neuro: AAO x 3, strength intact bilaterally and related 5/5, no motor deficits, speech is clear, no peripheral sensory deficits Results & Data Vital Signs (Past 12 Hours) Vital Signs Temp Pulse Pulse Resp BP Pulse Ox Pulse Ox 07/13/19 19:18 94 H 20 92 07/13/19 18:58 37.3 C 94 H 17 113/59 L 94 07/13/19 16:00 99 H 07/13/19 15:41 36.5 C 100 H 27 H 128/60 91 07/13/19 15:11 98 H 20 93 07/13/19 13:21 96 07/13/19 11:14 101 H 16 93 07/13/19 10:58 36.8 C 102 H 26 H 110/58 L 92 PG Care Time/CCT Total # of Minutes Spent Total Time Spent with Patient: Total time spent is greater than 50% in coordination of care (as documented) at patient's floor/unit and/or counseling patient: (1) BPH (benign prostatic hyperplasia) Lower urinary tract symptom presence: symptoms absent Qualified Code(s): N40.0 - Benign prostatic hyperplasia without lower urinary tract symptoms (2) Anemia Anemia type: unspecified type Qualified Code(s): D64.9 - Anemia, unspecified (3) Hypothyroid Hypothyroidism type: acquired Qualified Code(s): E03.9 - Hypothyroidism, unspecified (4) Acute bronchitis Bronchitis organism: unspecified organism Qualified Code(s): J20.9 - Acute bronchitis, unspecified (5) GERD (gastroesophageal reflux disease) Esophagitis presence: esophagitis presence not specified Qualified Code(s): K21.9 - Gastro-esophageal reflux disease without esophagitis (6) Hypertension Hypertension type: essential hypertension Qualified Code(s): I10 - Essential (primary) hypertension (7) Pneumonia Pneumonia type: due to unspecified organism
[2019-07-14] MEDS: LACTULOSE SYRUP 20 GM/30 ML UDC PO SCH ×3 (00:01→05:51)
[2019-07-14] MEDS: ALBUT/IPRATROP 3MG/0.5MG NEB 3 ML VIAL NEB SCH ×6 (02:14→23:12)
[2019-07-14] MEDS ORDERED: FUROSEMIDE 20 MG in SYRINGE 0 ML IV STA (03:58)
[2019-07-14] MEDS ORDERED: Nursing to Pharmacy Communication ONE (05:54)
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
[2019-07-14] MEDS: methylPREDNISolone 60 MG in SYRINGE 0 ML IV SCH ×2 (08:32→20:37)
[2019-07-14] MEDS: METOPROLOL SUCC 50MG EXT REL TAB PO SCH (08:32)
[2019-07-14] MEDS: SODIUM CHLORIDE 1 GM TABLET PO SCH ×2 (08:32→20:45)
[2019-07-14] MEDS: guaiFENesin 600 MG TABCR PO SCH ×2 (08:33→20:38)
[2019-07-14] MEDS: SENNA 8.6 MG TAB PO SCH (08:33)
[2019-07-14] MEDS: FERROUS SULFATE 325 MG TAB PO SCH ×2 (08:33→20:43)
[2019-07-14] MEDS: ENOXAPARIN INJ 40 MG/0.4 ML SYR SQ SCH (08:33)
[2019-07-14] MEDS: DIVALPROEX DELAY RELEASE 125 MG TABEC PO SCH ×2 (08:34→20:45)
[2019-07-14] MEDS: DIVALPROEX DELAY RELEASE 250 MG TABEC PO SCH ×2 (08:34→20:46)
[2019-07-14] MEDS: HYDROCODONE/ACETAMINOPHEN 7.5/325MG TAB PO SCH ×3 (08:36→20:50)
[2019-07-14] MEDS: CHOLECALCIFEROL 1,000 UNITS TAB PO SCH (20:37)
[2019-07-14] MEDS: LEVOTHYROXINE SODIUM 25 MCG TABLET PO SCH (20:38)
[2019-07-14] MEDS: ASPIRIN 81 MG ECTAB PO SCH (20:43)
[2019-07-14] MEDS: FINASTERIDE 5 MG TAB PO SCH (20:44)
[2019-07-14] MEDS: cloZAPine 100 MG TAB PO SCH (20:46)
[2019-07-14] MEDS: TAMSULOSIN HCL 0.4 MG CAP PO SCH (20:47)
--- NOTE | 2019-07-14 22:56 | Hospitalist Progress Note ---
Date of Service July 14, 2019 Assessment & Plan (1) Acute and chronic respiratory failure with hypoxia: (2) Shortness of breath: (3) Pneumonia: (4) Acute bronchitis: (5) Obstructive sleep apnea: - Admit to PCU - Pulmonary toilet with Duonebs, mucinex, flutter, incentive spirometry - Solumedrol 60 mg IV BID - Hold on antibiotics at this time as pt completed zpack on Tuesday -given age and h/o ronchiectasis, patient if required to be on antibiotics should be on pseudomonal coverage. -if patient is not improving by tomorrow, will place on levofloxacin. - Hx of tobacco use over 30 years ago, smoked 1ppd x 10 years, possible component of COPD - Send sputum for culture if can be produced however had dry cough while at bedside - CXR and CTA chest reviewed and were negative for pleural effusion and embolism. Xray from outpatient on Tuesday showed small pleural effusion per outpatient notes. - Continue HS o2, does not wear while awake, currently requiring O2. Titrate off. Will need ambulatory pulse ox. Patient appears to have history of emphysema. (6) Hypertension: - Cont metoprolol 50 mg QPM - BP well controlled (7) Hypercholesterolemia: - Cont statin therapy (8) CAD in [place] artery: (9) Congestive heart failure (CHF): - Cont asa, BB, lasix 20 mg IV now with lung findings on exam. - Check 2D echo as I cannot find anything that is recent, there is an echo from 2016 which was normal, but since then the patient has been placed on diuretics which would lead me to believe there is at least systolic dysfunction. - follow (10) Hypothyroid: - Continue levothyroxine (11) Anemia: - Baseline hgb of 11, today is 11.2, monitor with am cbc - Continue iron supplementation (12) GERD (gastroesophageal reflux disease): - Cont PPI (13) Seizure disorder: - Continue depakote 375 mg BID, clozapine 300 mg HS - Check depakote level (14) BPH (benign prostatic hyperplasia): - Continue finasteride (15) Hyperammonemia: - Ammonia elevated at 42.4 upon admission, pt is somnolent during my exam but awakens easily to verbal stimuli. Caregiver from [employer] also notes he has increased fatigue and somnolence today. - Will order dose of lactulose now, then continue Q2H until BM - pt is awake enough to drink it - Recheck level was in the 30s. (16) DVT prophylaxis: teds, scds, lovenox subq Subjective Patient reports feeling mildy better. He feels he is breathing a little bit better than when he came in. He also has noticed that he has been coughing up more mucus today then he did earlier. Patient denies any nausea, vomiting, diarrhea. Review of Systems Review of Systems: Constitutional: No fever, sweats or chills Eyes: No diplopia, no worsening or blurred vision ENT: normal hearing, no trouble swallowing Respiratory: As per HPI Cardiovascular: No chest pain, tightness or palpitations Abdomen: No pain, nausea, vomiting, diarrhea, + constipation, last BM was 5 days ago Musculoskeletal: No joint pain, calf pain, swelling Neurologic: No weakness, numbness/tingling, or balance problems Psychiatric: No anxiety or depression Skin: No rash or itch Physical Exam Physical Exam: General: awake, alert, no apparent distress, + somnolent during exam but awakens easily to questions Head: Normocephalic, atraumatic ENT: PERRL, EOMI, no pharyngeal exudate, mucous membranes dry, + dentures Chest: On 2.5 L via NC, + coarse breath sounds throughout, with more wheezing today. Cardiac: Regular rate and rhythm, no murmur, no JVD, normal peripheral pulses, good capillary refill Abdominal: NABS x 4 quadrants, soft, nontender to palpation, no rebound, guarding or tenderness Extremities: Normal inspection, no peripheral edema or erythema, calfs nontender to palpation Psych: pleasant mood and affect Neuro: AAO x 3, strength intact bilaterally and related 5/5, no motor deficits, speech is clear, no peripheral sensory deficits Results & Data Vital Signs (Past 12 Hours) Vital Signs Temp Pulse Pulse Resp BP BP Pulse Ox 07/14/19 22:45 36.7 C 97 H 18 148/74 H 93 07/14/19 19:57 36.7 C 96 H 139/73 96 07/14/19 19:02 36.4 C L 95 H 24 116/77 97 07/14/19 18:58 95 H 20 87 L 07/14/19 16:00 81 07/14/19 15:43 77 18 90 07/14/19 15:37 36.4 C L 87 18 141/66 H 89 L 07/14/19 11:33 36.5 C 83 22 150/74 H 92 07/14/19 11:05 76 18 95 PG Care Time/CCT Total # of Minutes Spent Total Time Spent with Patient: Total time spent is greater than 50% in coordination of care (as documented) at patient's floor/unit and/or counseling patient: (1) BPH (benign prostatic hyperplasia) Lower urinary tract symptom presence: symptoms absent Qualified Code(s): N40.0 - Benign prostatic hyperplasia without lower urinary tract symptoms (2) Anemia Anemia type: unspecified type Qualified Code(s): D64.9 - Anemia, unspecified (3) Hypothyroid Hypothyroidism type: acquired Qualified Code(s): E03.9 - Hypothyroidism, unspecified (4) Acute bronchitis Bronchitis organism: unspecified organism Qualified Code(s): J20.9 - Acute bronchitis, unspecified (5) GERD (gastroesophageal reflux disease) Esophagitis presence: esophagitis presence not specified Qualified Code(s): K21.9 - Gastro-esophageal reflux disease without esophagitis (6) Hypertension Hypertension type: essential hypertension Qualified Code(s): I10 - Essential (primary) hypertension (7) Pneumonia Pneumonia type: due to unspecified organism
[2019-07-15] MEDS: ALBUT/IPRATROP 3MG/0.5MG NEB 3 ML VIAL NEB SCH ×6 (03:08→22:57)
[2019-07-15] MEDS: methylPREDNISolone 60 MG in SYRINGE 0 ML IV SCH ×2 (06:23→18:57)
[2019-07-15] MEDS: DIVALPROEX DELAY RELEASE 250 MG TABEC PO SCH ×2 (08:07→21:37)
[2019-07-15] MEDS: SENNA 8.6 MG TAB PO SCH (08:07)
[2019-07-15] MEDS: HYDROCODONE/ACETAMINOPHEN 7.5/325MG TAB PO SCH ×3 (08:08→21:35)
[2019-07-15] MEDS: SODIUM CHLORIDE 1 GM TABLET PO SCH ×2 (08:08→21:36)
[2019-07-15] MEDS: DIVALPROEX DELAY RELEASE 125 MG TABEC PO SCH ×2 (08:09→21:37)
[2019-07-15] MEDS: guaiFENesin 600 MG TABCR PO SCH ×2 (08:09→21:39)
[2019-07-15] MEDS: FERROUS SULFATE 325 MG TAB PO SCH ×2 (08:09→22:14)
[2019-07-15] MEDS: ENOXAPARIN INJ 40 MG/0.4 ML SYR SQ SCH (08:09)
[2019-07-15] MEDS: METOPROLOL SUCC 50MG EXT REL TAB PO SCH (08:10)
[2019-07-15] MEDS: LEVOFLOXACIN/D5W 750 MG/150 ML BAG IV SCH (14:00)
[2019-07-15] MEDS: COUGH DROP (SUGAR FREE) LOZ 24 LOZ/1 BOX BUCCAL PRN (15:35)
[2019-07-15] MEDS: LACTOBACILLUS ACIDOPHILUS 1 GM PACK PO SCH (16:36)
[2019-07-15] MEDS ORDERED: BENZONATATE 100 MG CAPSULE PO PRN (17:05)
[2019-07-15] MEDS: LEVOTHYROXINE SODIUM 25 MCG TABLET PO SCH (21:35)
[2019-07-15] MEDS: CHOLECALCIFEROL 1,000 UNITS TAB PO SCH (21:35)
[2019-07-15] MEDS: FINASTERIDE 5 MG TAB PO SCH (21:36)
[2019-07-15] MEDS: TAMSULOSIN HCL 0.4 MG CAP PO SCH (21:36)
[2019-07-15] MEDS: ASPIRIN 81 MG ECTAB PO SCH (21:37)
[2019-07-15] MEDS: cloZAPine 100 MG TAB PO SCH (21:38)
--- NOTE | 2019-07-15 22:16 | Hospitalist Progress Note ---
Date of Service July 15, 2019 Assessment & Plan (1) Acute and chronic respiratory failure with hypoxia: (2) Shortness of breath: (3) Pneumonia: (4) Acute bronchitis: (5) Obstructive sleep apnea: - Admit to PCU/ now in med/surg - Pulmonary toilet with Duonebs, mucinex, flutter, incentive spirometry - Solumedrol 60 mg IV BID Will initate antibioitcs: levofloxacin IV given h/o bronchiectasis and recent antibiotics use on 07/15 - Hx of tobacco use over 30 years ago, smoked 1ppd x 10 years, possible component of COPD - Send sputum for culture if can be produced however had dry cough while at bedside - CXR and CTA chest reviewed and were negative for pleural effusion and embolism. Xray from outpatient on Tuesday showed small pleural effusion per outpatient notes. - Continue HS o2, does not wear while awake, currently requiring O2. Titrate off. Will need ambulatory pulse ox. Patient appears to have history of emphysema. (6) Hypertension: - Cont metoprolol 50 mg QPM - BP well controlled (7) Hypercholesterolemia: - Cont statin therapy (8) CAD in [place] artery: (9) Congestive heart failure (CHF): - Cont asa, BB, lasix 20 mg IV now with lung findings on exam. - Check 2D echo as I cannot find anything that is recent, there is an echo from 2016 which was normal, but since then the patient has been placed on diuretics which would lead me to believe there is at least systolic dysfunction. - follow (10) Hypothyroid: - Continue levothyroxine (11) Anemia: - Baseline hgb of 11, today is 11.2, monitor with am cbc - Continue iron supplementation (12) GERD (gastroesophageal reflux disease): - Cont PPI (13) Seizure disorder: - Continue depakote 375 mg BID, clozapine 300 mg HS (14) BPH (benign prostatic hyperplasia): - Continue finasteride (15) Hyperammonemia: - Ammonia elevated at 42.4 upon admission, pt is somnolent during my exam but awakens easily to verbal stimuli. Caregiver from [employer] also notes he has increased fatigue and somnolence today. - pt is awake enough to drink it - Recheck level was in the 30s. (16) DVT prophylaxis: teds, scds, lovenox subq Subjective Patient continues to have a cough. He states it is about the same, Patient denies any nausea, vomiting, diarrhea. Review of Systems Review of Systems: All systems reviewed & are unremarkable except as noted in HPI & below Physical Exam Physical Exam: General: awake, alert, no apparent distress, + somnolent during exam but awakens easily to questions Head: Normocephalic, atraumatic ENT: PERRL, EOMI, no pharyngeal exudate, mucous membranes dry, + dentures Chest: + coarse breath sounds throughout, continues to have wheezing bilaterall y. Cardiac: Regular rate and rhythm, no murmur, no JVD, normal peripheral pulses, good capillary refill Abdominal: NABS x 4 quadrants, soft, nontender to palpation, no rebound, guarding or tenderness Extremities: Normal inspection, no peripheral edema or erythema, calfs nontender to palpation Psych: pleasant mood and affect Neuro: AAO x 3, strength intact bilaterally and related 5/5, no motor deficits, speech is clear, no peripheral sensory deficits Results & Data Vital Signs (Past 12 Hours) Vital Signs Temp Pulse Resp BP Pulse Ox 07/15/19 19:15 88 18 94 07/15/19 15:20 89 16 92 07/15/19 14:51 36.8 C 94 H 20 151/75 H 96 07/15/19 11:13 88 16 90 PG Care Time/CCT Total # of Minutes Spent Total Time Spent with Patient: Total time spent is greater than 50% in coordin ation of care (as documented) at patient's floor/unit and/or counseling patient: (1) BPH (benign prostatic hyperplasia) Lower urinary tract symptom presence: symptoms absent Qualified Code(s): N40.0 - Benign prostatic hyperplasia without lower urinary tract symptoms (2) Anemia Anemia type: unspecified type Qualified Code(s): D64.9 - Anemia, unspecified (3) Hypothyroid Hypothyroidism type: acquired Qualified Code(s): E03.9 - Hypothyroidism, unspecified (4) Acute bronchitis Bronchitis organism: unspecified organism Qualified Code(s): J20.9 - Acute bronchitis, unspecified (5) GERD (gastroesophageal reflux disease) Esophagitis presence: esophagitis presence not specified Qualified Code(s): K21.9 - Gastro-esophageal reflux disease without esophagitis (6) Hypertension Hypertension type: essential hypertension Qualified Code(s): I10 - Essential (primary) hypertension (7) Pneumonia Pneumonia type: due to unspecified organism
[2019-07-16] MEDS: ALBUT/IPRATROP 3MG/0.5MG NEB 3 ML VIAL NEB SCH ×6 (03:26→22:45)
[2019-07-16] MEDS: methylPREDNISolone 60 MG in SYRINGE 0 ML IV SCH (07:12)
[2019-07-16] MEDS: LACTOBACILLUS ACIDOPHILUS 1 GM PACK PO SCH ×3 (07:37→17:51)
[2019-07-16] MEDS: DIVALPROEX DELAY RELEASE 250 MG TABEC PO SCH ×2 (07:37→20:19)
[2019-07-16] MEDS: ENOXAPARIN INJ 40 MG/0.4 ML SYR SQ SCH (07:38)
[2019-07-16] MEDS: guaiFENesin 600 MG TABCR PO SCH ×2 (07:38→20:20)
[2019-07-16] MEDS: HYDROCODONE/ACETAMINOPHEN 7.5/325MG TAB PO SCH ×3 (07:38→20:32)
[2019-07-16] MEDS: SODIUM CHLORIDE 1 GM TABLET PO SCH ×2 (07:39→20:20)
[2019-07-16] MEDS: METOPROLOL SUCC 50MG EXT REL TAB PO SCH (07:39)
[2019-07-16] MEDS: DIVALPROEX DELAY RELEASE 125 MG TABEC PO SCH ×2 (07:41→20:19)
[2019-07-16] MEDS: FERROUS SULFATE 325 MG TAB PO SCH ×2 (08:54→20:20)
[2019-07-16] MEDS: SENNA 8.6 MG TAB PO SCH (08:54)
[2019-07-16] MEDS: LEVOFLOXACIN/D5W 750 MG/150 ML BAG IV SCH (12:56)
--- NOTE | 2019-07-16 19:52 | Hospitalist Progress Note ---
Date of Service July 16, 2019 Assessment & Plan (1) Acute and chronic respiratory failure with hypoxia: - Likely multifactorial between COPD/Emphysema and possibly pneumonia - On RA through day; chronically utilizes 2 L HS - Starting to move secretions with flutter valve today - continue pulmonary toilet - Continue Duonebs and Mucinex; Convert to Prednisone 40 mg daily and will titrate down - Started on Levofloxacin 750 mg daily Present on Admission?: Yes (2) Hypertension: - STABLE - Metoprolol 50 mg daily Present on Admission?: Yes (3) Congestive heart failure (CHF): - Possible diastolic component given [place]/pulmonary contribution; H/O CAD on ASA 81 mg daily - Was taking a slightly increased dose prior to admission due to symptoms; Was given IV dosing on admission; will continue his current home dosing of 20 mg daily - Echo during admission with hyperdynamic LV with EF 65-70% and no mention of diastolic dysfunction - appears he was started on Lasix due to hyponatremia Present on Admission?: Yes (4) Hypothyroid: - Continue Levothyroxine 25 mcg daily Present on Admission?: Yes (5) Anemia: - Baseline Hgb of 11 - STABLE - Continue iron supplementation Present on Admission?: Yes (6) Seizure disorder: - Continue Depakote 375 mg BID, Clozapine 300 mg HS (7) BPH (benign prostatic hyperplasia): - Continue Finasteride 5 mg daily and Flomax 0.4 mg daily Present on Admission?: Yes (8) Hyperammonemia: - Ammonia mildly elevated on admission and somnolent - currently resolved and appears at baseline - Can monitor if change in mentation is noted. Present on Admission?: Yes (9) DVT prophylaxis: - Lovenox Disposition: Lives at [facility] - likely D/C next 1-2 days Subjective Continues with a significant cough but reports he is starting to move mucus with the flutter valve. Currently oxygenating well on RA. He reports a good appetite and states he missed his afternoon snack which is normally 2 cookies and 2 soda pops. Verbalizes no new complaints at this time Review of Systems Constitutional: no fever and no chills Respiratory: + cough and + sputum production; no dyspnea Cardiovascular: no chest pain and no lightheadedness Gastrointestinal: no abdominal pain, no nausea, no vomiting, no constipation and no diarrhea/loose stools Genitourinary: no dysuria Integumentary: no rash Physical Exam Constitutional: WD/WN, vitals as above no acute distress Eyes: + anicteric sclerae ENMT: Ears: no hearing impairment Neck: trachea midline Respiratory: normal respiratory effort Auscultation: + diminished lung sounds Cardiovascular: RRR, no murmur, no edema Gastrointestinal (Abdomen): Inspection/Auscultation: normal bowel sounds Percussion/Palpation: abdomen soft; abdomen nontender Skin: no rashes, warm and dry Neurologic: moves all extremities Psychiatric: A+Ox3, euthymic affect Results & Data Vital Signs (Past 12 Hours) Vital Signs Temp Pulse Resp BP Pulse Ox 07/16/19 18:47 88 14 90 07/16/19 15:19 36.5 C 86 19 137/76 100 07/16/19 14:54 79 20 94 07/16/19 10:51 84 22 92 PG Care Time/CCT Total # of Minutes Spent Total Time Spent with Patient: Total time spent is greater than 50% in coordination of care (as documented) at patient's floor/unit and/or counseling patient: (1) BPH (benign prostatic hyperplasia) Lower urinary tract symptom presence: symptoms absent Qualified Code(s): N40.0 - Benign prostatic hyperplasia without lower urinary tract symptoms (2) Anemia Anemia type: unspecified type Qualified Code(s): D64.9 - Anemia, unspecified (3) Hypothyroid Hypothyroidism type: acquired Qualified Code(s): E03.9 - Hypothyroidism, unspecified (4) Hypertension Hypertension type: essential hypertension Qualified Code(s): I10 - Essential (primary) hypertension
[2019-07-16] MEDS: ASPIRIN 81 MG ECTAB PO SCH (20:19)
[2019-07-16] MEDS: cloZAPine 100 MG TAB PO SCH (20:19)
[2019-07-16] MEDS: TAMSULOSIN HCL 0.4 MG CAP PO SCH (20:20)
[2019-07-16] MEDS: FINASTERIDE 5 MG TAB PO SCH (20:20)
[2019-07-16] MEDS: LEVOTHYROXINE SODIUM 25 MCG TABLET PO SCH (20:20)
[2019-07-16] MEDS: CHOLECALCIFEROL 1,000 UNITS TAB PO SCH (20:21)
[2019-07-17] MEDS: ALBUT/IPRATROP 3MG/0.5MG NEB 3 ML VIAL NEB SCH ×6 (02:48→23:12)
[2019-07-17] MEDS: LACTOBACILLUS ACIDOPHILUS 1 GM PACK PO SCH ×3 (07:53→17:58)
[2019-07-17] MEDS: ENOXAPARIN INJ 40 MG/0.4 ML SYR SQ SCH (07:54)
[2019-07-17] MEDS: DIVALPROEX DELAY RELEASE 250 MG TABEC PO SCH ×2 (07:54→20:32)
[2019-07-17] MEDS: FERROUS SULFATE 325 MG TAB PO SCH ×2 (07:54→20:32)
[2019-07-17] MEDS: DIVALPROEX DELAY RELEASE 125 MG TABEC PO SCH ×2 (07:54→20:27)
[2019-07-17] MEDS: guaiFENesin 600 MG TABCR PO SCH ×2 (07:54→20:29)
[2019-07-17] MEDS: FUROSEMIDE 20 MG TAB PO SCH (07:54)
[2019-07-17] MEDS: SENNA 8.6 MG TAB PO SCH (07:55)
[2019-07-17] MEDS: SODIUM CHLORIDE 1 GM TABLET PO SCH ×2 (07:55→20:31)
[2019-07-17] MEDS: HYDROCODONE/ACETAMINOPHEN 7.5/325MG TAB PO SCH ×3 (07:55→20:27)
[2019-07-17] MEDS: METOPROLOL SUCC 50MG EXT REL TAB PO SCH (07:55)
[2019-07-17] MEDS: predniSONE 20 MG TAB PO SCH (07:55)
[2019-07-17] MEDS: levoFLOXacin 750 MG TAB PO SCH (11:19)
--- NOTE | 2019-07-17 18:16 | Hospitalist Progress Note ---
Date of Service July 17, 2019 Assessment & Plan (1) Acute and chronic respiratory failure with hypoxia: - Likely multifactorial between COPD/Emphysema and possibly pneumonia - On RA through day; chronically utilizes 2 L HS - Starting to move secretions with flutter valve - continue pulmonary toilet - Continue Duonebs and Mucinex; Convert to Prednisone 40 mg daily and will titrate down - Continue Levofloxacin 750 mg daily (2) Hypertension: - STABLE - Metoprolol 50 mg daily (3) Congestive heart failure (CHF): - Possible diastolic component given [place]/pulmonary contribution; H/O CAD on ASA 81 mg daily - Was taking a slightly increased dose prior to admission due to symptoms; Was given IV dosing on admission; will continue his current home dosing of 20 mg daily - Echo during admission with hyperdynamic LV with EF 65-70% and no mention of diastolic dysfunction - appears he was started on Lasix due to hyponatremia (4) Hypothyroid: - Continue Levothyroxine 25 mcg daily (5) Anemia: - Baseline Hgb of 11 - STABLE - Continue iron supplementation (6) Seizure disorder: - Continue Depakote 375 mg BID, Clozapine 300 mg HS (7) BPH (benign prostatic hyperplasia): - Continue Finasteride 5 mg daily and Flomax 0.4 mg daily (8) Hyperammonemia: - Ammonia mildly elevated on admission and somnolent - currently resolved and appears at baseline - Can monitor if change in mentation is noted. (9) DVT prophylaxis: - Lovenox Disposition: Lives at [facility] - likely D/C tomorrow Subjective Patient resting in bed today. Reports that he continues to use the incentive spirometer. He can be soft spoken and difficult to understand at times. States his cough may be getting a bit better. Not having as harsh of a cough today compared to yesterday and occ. getting some sputum. Remains on RA through the day with good oxygenation. Some diminished breath sounds. Review of Systems Constitutional: no fever, no chills and no anorexia Respiratory: + cough; no dyspnea Cardiovascular: no chest pain Gastrointestinal: no abdominal pain Physical Exam Constitutional: WD/WN, vitals as above no acute distress Eyes: + anicteric sclerae ENMT: Ears: no hearing impairment Neck: trachea midline Respiratory: normal respiratory effort Auscultation: + diminished lung sounds Cardiovascular: RRR, no murmur, no edema Gastrointestinal (Abdomen): Inspection/Auscultation: normal bowel sounds Percussion/Palpation: abdomen soft; abdomen nontender Skin: no rashes, warm and dry Neurologic: moves all extremities Psychiatric: A+Ox3, euthymic affect Results & Data Vital Signs (Past 12 Hours) Vital Signs Temp Pulse Resp BP Pulse Ox 07/17/19 15:09 74 18 92 07/17/19 15:00 36.9 C 97 H 20 118/69 92 07/17/19 11:42 35.8 C L 83 24 122/76 92 07/17/19 11:11 79 21 91 07/17/19 07:02 79 19 94 07/17/19 06:35 36.6 C 81 20 122/76 99 PG Care Time/CCT Total # of Minutes Spent Total Time Spent with Patient: Total time spent is greater than 50% in coordination of care (as documented) at patient's floor/unit and/or counseling patient: (1) BPH (benign prostatic hyperplasia) Lower urinary tract symptom presence: symptoms absent Qualified Code(s): N40.0 - Benign prostatic hyperplasia without lower urinary tract symptoms (2) Anemia Anemia type: unspecified type Qualified Code(s): D64.9 - Anemia, unspecified (3) Hypothyroid Hypothyroidism type: acquired Qualified Code(s): E03.9 - Hypothyroidism, unspecified (4) Hypertension Hypertension type: essential hypertension Qualified Code(s): I10 - Essential (primary) hypertension
[2019-07-17] MEDS: CHOLECALCIFEROL 1,000 UNITS TAB PO SCH (20:28)
[2019-07-17] MEDS: LEVOTHYROXINE SODIUM 25 MCG TABLET PO SCH (20:29)
[2019-07-17] MEDS: ASPIRIN 81 MG ECTAB PO SCH (20:30)
[2019-07-17] MEDS: FINASTERIDE 5 MG TAB PO SCH (20:30)
[2019-07-17] MEDS: cloZAPine 100 MG TAB PO SCH (20:31)
[2019-07-17] MEDS: TAMSULOSIN HCL 0.4 MG CAP PO SCH (20:31)
[2019-07-18] MEDS: ALBUT/IPRATROP 3MG/0.5MG NEB 3 ML VIAL NEB SCH ×4 (03:26→15:43)
[2019-07-18] MEDS: COUGH DROP (SUGAR FREE) LOZ 24 LOZ/1 BOX BUCCAL PRN (05:01)
[2019-07-18 06:16] LABS: Hematocrit (blood only) 36.2 % (42-52); Hemoglobin 11.3 g/dL (14.0-18.0); Mean Corpuscular Hemoglobin 29.5 pg (25-34); Mean Corpuscular Hgb Conc 31.2 g/dL (32-36); Mean Corpuscular Volume 94.5 fL (80-100); Mean Platelet Volume 9.9 fL (7.4-10.4); Nucleated RBC # (auto) 0.02 K/uL (0-0); Nucleated RBC % (auto) 0.1 %; Platelet Count 197 K/uL (130-400); RDW Coefficient of Variation 13.5 % (11.5-14.5); RDW Standard Deviation 46.6 fL (36.4-46.3); Red Blood Count 3.83 M/uL (4.7-6.1); White Blood Count 17.36 K/uL (4.8-10.8)
[2019-07-18 06:43] LABS: BUN Creatinine Ratio 39.8 (10-20); Calcium 8.5 mg/dl (8.5-10.1); Creatinine Clr Calc Pharmacy 83.8 ml/min; Est GFR (African American) 98.8; Est GFR (Non-African American) 85.2; Potassium 5.2 mmol/L (3.5-5.1)
[2019-07-18] MEDS: FUROSEMIDE 20 MG TAB PO SCH (08:46)
[2019-07-18] MEDS: LACTOBACILLUS ACIDOPHILUS 1 GM PACK PO SCH ×2 (08:46→13:26)
[2019-07-18] MEDS: DIVALPROEX DELAY RELEASE 250 MG TABEC PO SCH (08:47)
[2019-07-18] MEDS: predniSONE 20 MG TAB PO SCH (08:47)
[2019-07-18] MEDS: METOPROLOL SUCC 50MG EXT REL TAB PO SCH (08:47)
[2019-07-18] MEDS: SODIUM CHLORIDE 1 GM TABLET PO SCH (08:47)
[2019-07-18] MEDS: FERROUS SULFATE 325 MG TAB PO SCH (08:47)
[2019-07-18] MEDS: SENNA 8.6 MG TAB PO SCH (08:48)
[2019-07-18] MEDS: guaiFENesin 600 MG TABCR PO SCH (08:48)
[2019-07-18] MEDS: DIVALPROEX DELAY RELEASE 125 MG TABEC PO SCH (08:49)
[2019-07-18] MEDS: ENOXAPARIN INJ 40 MG/0.4 ML SYR SQ SCH (08:49)
[2019-07-18] MEDS: HYDROCODONE/ACETAMINOPHEN 7.5/325MG TAB PO SCH ×2 (08:57→13:28)
[2019-07-18] MEDS ORDERED: SODIUM CHLORIDE 0.65% NA SOLN 45 ML (OCEAN) ONE (10:32)
[2019-07-18] MEDS ORDERED: SODIUM CHLORIDE 0.65% NA SOLN 45 ML (OCEAN) PRN (10:46)
[2019-07-18] MEDS: levoFLOXacin 750 MG TAB PO SCH (11:40)
--- NOTE | 2019-07-18 12:14 | Discharge Summary ---
Date of Service July 18, 2019 Admission HPI Per Admitting Provider This is a 68 yo M with PMHx CHF, HTN, HLD, CKD stage III, DM II, Hypothyroidism, Anemia, GERD, BPH, seizure disorder, schitzoaffective disorder, NOLA, Vitamin D deficiency who presents with worsening shortness of breath. Pt notes this has been worsening for 2 weeks total where he was previously diagnosed with pneumonia, was treated with azithromycin which he finished last Tuesday. The patient had a repeat chest x-ray which showed small right-sided pleural effusion. He was instructed to take 2 days of double Lasix, total of 40 mg qam, on Tuesday and Tuesday this week and then went back to his normal dosing today. Patient notes that there was no significant improvement in his shortness of breath. He is winded with ambulating with a walker while at [employer]. Patient reports his cough is chronic and occasionally brings up sputum. He denies any fevers, chills or sweats. He denies any changes in fluid in his lower extremities. Patient is unaware of his dry weight. He did take all of his morning medications today however missed his 2:30p meds due to being here in the ER. Principal Diagnosis Pneumonia/Bronchitis Discharge Exam Constitutional well developed and well nourished; no acute distress Eyes + anicteric sclerae ENMT Ears: no hearing impairment reports soreness of his mouth however kept eating a cookie when trying to assess for thrush Neck trachea midline Respiratory normal respiratory effort Auscultation: + diminished lung sounds and + wheezes (intermittent sporadic - improves with deeper breaths/coughing) Cardiovascular Rate/Rhythm: regular rate and regular rhythm Heart Sounds: + murmur Gastrointestinal (Abdomen) Inspection/Auscultation: normal bowel sounds Percussion/Palpation: abdomen soft; abdomen nontender Skin no rashes, warm and dry Neurologic moves all extremities Psychiatric A+Ox3, euthymic affect Discharge Data Allergies Allergy/AdvReac Type Severity Reaction Status Date / Time diltiazem Allergy Intermediate rash and Verified 07/12/19 13:43 edema fentanyl AdvReac Confusion Verified 07/12/19 13:43 Consultations 07/12/19 14:57 ED Decision to Admit Stat 07/12/19 18:17 Consult Case Management - Discharge Planning Routine Ordered Studies 07/12/19 14:02 CT angio chest PE protocol Stat Hospital Course (1) Acute and chronic respiratory failure with hypoxia: - Likely multifactorial between COPD/Emphysema and possibly pneumonia - On RA through day; chronically utilizes 2 L HS - Starting to move secretions with flutter valve - continue pulmonary toilet - Continue Duonebs and Mucinex; Will complete a Prednisone taper - 30 mg x 3 days, 20 mg x 3 days, then 10 mg x 3 days - Continue Levofloxacin 750 mg daily x 3 more days to complete course (2) Hypertension: - STABLE - Metoprolol 50 mg daily (3) Congestive heart failure (CHF): - Possible diastolic component given NOLA/pulmonary contribution; H/O CAD on ASA 81 mg daily - Was taking a slightly increased dose prior to admission due to symptoms; Was given IV dosing on admission; will continue his current home dosing of 20 mg daily - Echo during admission with hyperdynamic LV with EF 65-70% and no mention of diastolic dysfunction - appears he was started on Lasix due to hyponatremia (4) Hypothyroid: - Continue Levothyroxine 25 mcg daily (5) Anemia: - Baseline Hgb of 11 - STABLE - Continue iron supplementation (6) Seizure disorder: - Continue Depakote 375 mg BID, Clozapine 300 mg HS (7) BPH (benign prostatic hyperplasia): - Continue Finasteride 5 mg daily and Flomax 0.4 mg daily (8) Hyperammonemia: - Ammonia mildly elevated on admission and somnolent - currently resolved and appears at baseline - Can monitor if change in mentation is noted. Total Time Total Time Spent Total Time Spent (In Minutes): Greater then 30 minutes Discharge Plan Discharge Items Patient Disposition: Personal Nursing Home Reason For Visit: SHORTNESS OF BREATH Discharge Diagnosis: Pneumonia/Bronchitis Activity: Resume your previous activity Non-emergency contact: Primary Care Provider Call non-emergency contact if: you have any medication questions, your symptoms worsen and you have a fever Follow-up/Referrals: Jong Weir MD [Primary Care Provider] - 07/24/19 10:00 am (Please, follow up at Dr. Weir's office with his employee relations assistant, Lina Macias PA-C, on TuesdayJuly 24 at 10:00 am. *If you need to change this appointment, call the office at [phone].) Diet: Heart Healthy Addtl Attending Provider Instructions: Respiratory Illness: - We are treating you for both pneumonia and bronchitis. You continue to have a cough but this can take a bit of time to resolve. Thankfully you are now starting to cough some of the mucus out. - Recommend to continue to use the plastic handheld breathing machines to keep those airways open - You will finish a course of antibiotics. You are taking Levaquin 750 mg daily. You had a dose today so take one tomorrow (07/19) and will take this on 07/20 and 07/21 and then you will be finished - We are also using Prednisone to help with the bronchitis and will taper this down over the next couple days -- Take Prednisone 30 mg for 3 days starting tomorrow (07/19) then take 20 mg for 3 days then 10 mg for 3 days and then you will finish this - You may still get occasional wheezing and recommend to keep using your nebulizers for this and continue to try and take deep breaths and cough to help move the mucus - Can also continue some nasal spray to help keep your nose from getting dry and help break up mucus in there as well Possible Thrush: - You were complaining about some soreness in your mouth when eating. You could possibly have a little bit of yeast or thrush from breathing treatments/steroids. Use the Nystatin swish and spit for a couple days to see if this helps Home Medications: - Continue your home medications as prescribed. We did not make adjustments to these Pending Studies at Discharge: No Stand-Alone Forms: My [facility] Skilled Items Patient informed of condition?: Yes DNR: Yes Discharge Level of Care: Other Communicable Disease: No Discharge Prognosis: Stable Lines: None Urinary Catheter: No Medications and DC Order Prescriptions: New nystatin 100,000 unit/mL Suspension 5 ml PO QID 3 Days Qty: 60 RF: 0 prednisone 20 mg Tablet 20 mg PO DIRECTED Qty: 9 RF: 0 levofloxacin 750 mg Tablet 750 mg PO DAILY@1100 3 Days Qty: 3 RF: 0 benzonatate [Tessalon Perles] 100 mg Capsule 100 mg PO TID PRN (Reason: cough) 5 Days Qty: 15 RF: 0 guaifenesin [Mucinex] 600 mg Tablet Extended Release 12hr 1,200 mg PO Q12 5 Days Qty: 20 RF: 0 Continued hydrocodone-acetaminophen 7.5-325 mg tablet 1 tab PO TID Qty: 15 RF: 0 divalproex [Depakote] 250 mg Tablet,Delayed Release (Dr/Ec) 250 mg PO BID RF: 0 clozapine 100 mg Tablet 300 mg PO HS RF: 0 ranitidine HCl [Zantac 75] 75 mg Tablet 75 mg PO BID RF: 0 divalproex [Depakote] 125 mg Tablet,Delayed Release (Dr/Ec) 125 mg PO BID RF: 0 Asmanex Twisthaler 220 mcg (120 doses) Aerosol Powdr Breath Activated 1 inh INHALATION HS RF: 0 metoprolol succinate 50 mg Tablet Extended Release 24 Hr 50 mg PO QAM RF: 0 aspirin 81 mg Tablet,Delayed Release (Dr/Ec) 81 mg PO HS RF: 0 magnesium hydroxide [Milk of Magnesia] 400 mg/5 mL Suspension 2 tbsp PO HS PRN (Reason: NO BM IN 48 HOURS.) RF: 0 tamsulosin 0.4 mg Capsule 0.4 mg PO QPM RF: 0 cholecalciferol (vitamin D3) [Vitamin D3] 2,000 unit Capsule 2,000 unit PO PM RF: 0 acetaminophen 500 mg Capsule 500 mg PO Q6H MDD 2000 MG/24 HOURS PRN (Reason: Pain) RF: 0 ipratropium-albuterol 0.5 mg-3 mg(2.5 mg base)/3 mL Solution For Nebulization 3 ml NEB Q4H PRN (Reason: SOB) Qty: 30 RF: 0 ferrous sulfate 325 mg (65 mg iron) Tablet,Delayed Release (Dr/Ec) 325 mg PO BID Qty: 60 RF: 0 sodium chloride 1 gram Tablet 1 g PO BID Qty: 60 RF: 0 furosemide 20 mg Tablet 20 mg PO QAM Qty: 30 RF: 0 sennosides [Senokot] 8.6 mg Tablet 17.2 mg PO QAM Qty: 60 RF: 0 polyethylene glycol 3350 [Miralax] 17 gram powder in packet 17 g PO BID PRN (Reason: Constipation) RF: 0 levothyroxine 25 mcg tablet 25 mcg PO QPM RF: 0 finasteride 5 mg tablet 5 mg PO HS RF: 0 Discharge Orders: Discharge Order (Routine); Ordered 07/18/19 Ordered By: Irma Al Admission Data Admit Date/Time: 07/12/19 15:50 Attending Provider: Ozzie Montilla Admit Provider: Cynthia Mehta Primary Care Provider: oJng Weir Other Providers: Cynthia Mehta Other Interventions: Discharge Summary Assessment (RN) Last Done: 07/18/19 14:51 DC Date/Time DO NOT enter until pt leaves facility: 07/18/19 16:39 Supervising Physician Co-Signing Physician Notes Attending note: patient seen and examined with Irma Al PA-C. I agree with her discharge summary. I personally reviewed the labs and imaging findings. patient c/o some sinus congestion but no other complaints breathing well appetite is intact reviewed labs, K is minimally elevated at 5.2, repeat also 5.2 takes no K supplements, no medications that would raise K looking back on prior values he runs 4.8 to 5.1 as outpatient so this is right within his typical range continue on daily potassium - Hyperkalemia: minimally elevated at 5.2 continue Lasix, repeat as outpatient - Acute respiratory failure due to COPD, possible pneumonia responded well to Duoneb, Prednisone, Levaquin complete Prednisone taper complete three more days of Levaquin
[2019-07-18] MEDS ORDERED: NYSTATIN SUSP 500,000 U/5 ML UDC PO SCH (13:00)
[2019-07-18 14:47] LABS: BUN Creatinine Ratio 31.4 (10-20); Calcium 8.4 mg/dl (8.5-10.1); Creatinine Clr Calc Pharmacy 66.6 ml/min; Est GFR (African American) 74.9; Est GFR (Non-African American) 64.6; Potassium 5.2 mmol/L (3.5-5.1)
== END 2019-07-18 16:39 | disposition home or self-care (01) | DRG 193 ==
LOC: ED 11:56 → 2E 15:50 → SUATTDRO 15:50 → 2E 17:29 → 4W 07-14 18:09

== ENCOUNTER 2020-01-15 10:09 | Inpatient (IN) ==
[2020-01-15] MEDS ORDERED: LEVOFLOXACIN/D5W 750 MG/150 ML BAG IV STA (10:41)
[2020-01-15] MEDS ORDERED: SODIUM CHLORIDE 0.9% 1000ML 2,000 ML IV SCH (10:45)
--- NOTE | 2020-01-15 10:50 | Emergency Department Note ---
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 Patient was treated for pneumonia about 2 and half weeks ago and was discharged and took antibiotics. He notes that over the past 3 days shortness of breath is gotten worse associated with his weakness. He has felt hot at home. He does admit to a dark brown productive cough. Patient does have a past medical history of sleep apnea obesity and Mycobacterium. He also has a fairly significant history of aspiration pneumonia and intermittent hypoxia. He is only supposed to wear nasal cannula at night with sleeping. ROS: See above HPI for pertinent positives & negatives. A total of 10 systems reviewed and were otherwise negative. PAST MEDICAL HISTORY:See Below PAST SURGICAL HISTORY:See Below FAMILY HISTORY:See Below SOCIAL HISTORY:See Below HOME MEDICATIONS:See Below ALLERGIES:See Below VITALS:See Below PHYSICAL EXAMINATION: GENERAL: Sitting up in bed, alert, ill appearing, on nasal cannula EYE EXAM: normal conjunctiva. OROPHARYNX: mucous membranes are dry NECK: supple, no nuchal rigidity, no adenopathy, non-tender LUNGS: Rhonchi bilateral. Normal chest wall mechanics HEART: S1 normal and S2 normal ABDOMEN: abdomen soft, non-tender, normo-active bowel sounds, no masses, no rebound or guarding. BACK: Back is symmetrical on inspection and there is no deformity, no midline tenderness, no CVA tenderness. SKIN: no rashes and no bruising UPPER EXTREMITIES: upper extremities are grossly normal. LOWER EXTREMITIES: No pitting edema. NEURO EXAM: Awake alert answering questions moving all extremities MEDICAL DECISION MAKING: Patient is a 69-year-old male past medical history of aspiration pneumonia schizophrenia, hypoxia, respiratory failure, CAD, CHF who presents to the ER with recent admission and discharge for pneumonia. Patient notes that has become more short of breath. Has been having fevers at home. Currently febrile and hypoxic with a pulse ox of 87%. He was placed on 2 L nasal cannula got to 92%. Patient was also found to be hypotensive which I do favor secondary to the infection and dehydration. Denies any recent trips or travel. Chest x-ray does not appear to be significant change from previous. IV was established blood work was obtained. Labs shows no significant leukocytosis. Hemoglobin trended down from 11-9-1/2. INR was unremarkable. BMP along with LFTs bilirubin and troponin was negative. UA was unremarkable. Influenza was negative. Case was discussed with hospitalist. Patient was given IV fluids and IV antibiotics including Levaquin and Rocephin. It Business Systems Analyst was updated and patient was discussed with hospitalist for admission secondary to hypoxia pneumonia and hypotension. Triage Nursing notes reviewed. Prior medical records reviewed Vital Signs: reviewed and remarkable for hypotension, hypoxia and febrile Differential diagnosis: Differential diagnosis includes etiologies such as sepsis, UTI, pneumonia, metabolic, electrolyte abnormalities, cardiac sources, intracerebral event, toxicologic, neurological, as well as others were entertained. ER treatment provided: See below Diagnostics interpreted by me: ECG: Sinus rhythm rate 80 normal axis T WI in lead III No PVCs Normal QTC First-degree AV block Cardiac Monitoring: Sinus rhythm rate of 78 Laboratory studies: As stated above and show below. Imaging studies: Chest x-ray portable AP upright one view: right upper lobe infiltrate consistent with previous x-rays. Consultation(s): Discussed with Dr. Andrade ED COURSE: Procedures: none Critical Care: None Impression & Plan Hypoxia, Pneumonia, Acute hypotension Past Med/Surg History Social History Preferred Language: Georgian Communication Ability: Effective Visual Impairment: No Limitations Hearing Ability: Normal Patient Ombudsperson Required: No Beliefs That Will Affect Care: None marital status: Single Current Living Situation: Personal Care Facility Current Living Situation Comment: lives [place] current occupational status: retired Feels Safe at Home: Yes Smoking Status: Never smoker Tobacco Type: cigarettes ; Second Hand Exposure: No ; Hx Alcohol Use: No Hx Substance Use: Yes substance use type: prescription drug Substance Use Type Other:: hydrocodone Results & Data Vital Signs Vital Signs - 24 hr 01/15/20 10:20 01/15/20 10:40 01/15/20 10:44 Temperature 36.7 C Temperature Source Oral Pulse Rate 80 80 80 Pulse Rate [Apical] Pulse Rate from SpO2 Sensor 80 Pulse Rhythm Regular Pulse Rhythm [Apical] Pulse Strength [Apical] Respiratory Rate 18 18 23 Respiratory Effort / Characteristics Blood Pressure 96/43 L 85/67 L Blood Pressure [Right Arm] Blood Pressure Mean 60 70 Blood Pressure Mean [Right Arm] Blood Pressure Position [Right Arm] Pulse Oximetry 93 93 93 Oxygen Delivery Method Room Air Room Air Oxygen Flow Rate 0 Sepsis Recent Fever Within 48 Hours No Sepsis New/Unexplained Change in Mental Status No Sepsis Action Taken by Nursing No Action Required Oxygen Flow Rate - Titration 2 Pulse Oximetry Post Tiitration 93 01/15/20 10:46 01/15/20 11:00 01/15/20 11:15 Temperature 37.8 C H Temperature Source Oral Pulse Rate 80 82 76 Pulse Rate [Apical] 80 75 Pulse Rate from SpO2 Sensor 80 82 76 Pulse Rhythm Pulse Rhythm [Apical] Regular Regular Pulse Strength [Apical] Normal Normal Respiratory Rate 20 20 20 Respiratory Effort / Characteristics Short of Breath Short of Breath Blood Pressure Blood Pressure [Right Arm] 85/67 L 117/57 L Blood Pressure Mean Blood Pressure Mean [Right Arm] 73 77 Blood Pressure Position [Right Arm] Lying Lying Pulse Oximetry 93 97 100 Oxygen Delivery Method Room Air Nasal Cannula Oxygen Flow Rate 2 Sepsis Recent Fever Within 48 Hours Sepsis New/Unexplained Change in Mental Status Sepsis Action Taken by Nursing Oxygen Flow Rate - Titration Pulse Oximetry Post Tiitration 01/15/20 11:25 01/15/20 11:30 01/15/20 11:45 Temperature Temperature Source Pulse Rate 75 74 72 Pulse Rate [Apical] Pulse Rate from SpO2 Sensor 75 74 72 Pulse Rhythm Pulse Rhythm [Apical] Pulse Strength [Apical] Respiratory Rate 24 19 19 Respiratory Effort / Characteristics Blood Pressure 117/57 L 115/66 Blood Pressure [Right Arm] Blood Pressure Mean 65 82 Blood Pressure Mean [Right Arm] Blood Pressure Position [Right Arm] Pulse Oximetry 99 100 100 Oxygen Delivery Method Oxygen Flow Rate Sepsis Recent Fever Within 48 Hours Sepsis New/Unexplained Change in Mental Status Sepsis Action Taken by Nursing Oxygen Flow Rate - Titration Pulse Oximetry Post Tiitration 01/15/20 12:00 01/15/20 12:15 01/15/20 12:30 Temperature Temperature Source Pulse Rate 73 74 75 Pulse Rate [Apical] Pulse Rate from SpO2 Sensor 73 74 75 Pulse Rhythm Pulse Rhythm [Apical] Pulse Strength [Apical] Respiratory Rate 19 24 22 Respiratory Effort / Characteristics Blood Pressure 126/63 119/61 Blood Pressure [Right Arm] Blood Pressure Mean 99 70 Blood Pressure Mean [Right Arm] Blood Pressure Position [Right Arm] Pulse Oximetry 100 100 97 Oxygen Delivery Method Oxygen Flow Rate Sepsis Recent Fever Within 48 Hours Sepsis New/Unexplained Change in Mental Status Sepsis Action Taken by Nursing Oxygen Flow Rate - Titration Pulse Oximetry Post Tiitration Laboratory Data Result diagrams: 01/15/20 10:55 01/15/20 10:55 Lab Results 01/15/20 01/15/20 01/15/20 Range/Units 10:54 10:55 10:55 WBC 10.11 (4.8-10.8) K/uL RBC 3.44 L (4.7-6.1) M/uL Hgb 9.5 L (14.0-18.0) g/dL Hct 32.3 L (42-52) % MCV 93.9 (80-100) fL MCH 27.6 (25-34) pg MCHC 29.4 L (32-36) g/dL RDW Std Deviation 50.2 H (36.4-46.3) fL RDW Coeff of Nakia 14.6 H (11.5-14.5) % Plt Count 185 (130-400) K/uL MPV 9.1 (7.4-10.4) fL Immature Gran % (Auto) 6.2 % Neut % (Auto) 59.9 % Lymph % (Auto) 17.4 % [place] % (Auto) 13.7 % Eos % (Auto) 2.3 % Baso % (Auto) 0.5 % Immature Gran # (Auto) 0.63 H (0.00-0.02) K/uL Neut # (Auto) 6.05 (1.4-6.5) K/uL Lymph # (Auto) 1.76 (1.2-3.4) K/uL [place] # (Auto) 1.39 H (0.11-0.59) K/uL Eos # (Auto) 0.23 (0-0.5) K/uL Baso # (Auto) 0.05 (0-0.2) K/uL PT (9.0-12.0) Seconds INR (0.9-1.1) APTT (21.0-31.0) Seconds PTT Ratio Sodium 137 (136-145) mmol/L Potassium 4.8 (3.5-5.1) mmol/L Chloride 105 (98-107) mmol/L Carbon Dioxide 30 (21-32) mmol/L Anion Gap 2.0 L (3-11) BUN 27 H (7-18) mg/dl Creatinine 1.23 (0.6-1.4) mg/dl Est Cr Clr Drug Dosing 64.5 ml/min Est GFR ( Amer) 70.0 Est GFR (Non-Af Amer) 60.4 BUN/Creatinine Ratio 21.9 H (10-20) Glucose 104 H (70-99) mg/dl Lactate (0.4-2.0) mmol/L Calcium 9.2 (8.5-10.1) mg/dl Total Bilirubin 0.3 (0.2-1) mg/dl AST 17 (15-37) U/L ALT 20 (12-78) U/L Alkaline Phosphatase 72 (45-117) U/L Troponin I < 0.015 (0-0.045) ng/ml NT-Pro-B Natriuret Pep 1343 H (0-900) pg/ml Total Protein 7.7 (6.4-8.2) gm/dl Albumin 2.5 L (3.4-5.0) gm/dl Globulin 5.2 H (2.5-4.0) gm/dl Albumin/Globulin Ratio 0.5 L (0.9-2) Urine Color Urine Appearance (Clear) Urine pH (4.5-7.5) Ur Specific [place] (1.000-1.030) Urine Protein (Negative) Urine Glucose (UA) (Negative) Urine Ketones (Negative) Urine Blood (Negative) Urine Nitrite (Negative) Urine Bilirubin (Negative) Urine Urobilinogen (Negative) Ur Leukocyte Esterase (Negative) Influenza Type A (PCR) Neg for Influ A (Neg) Influenza Type B (PCR) Neg for Influ B (Neg) 01/15/20 01/15/20 01/15/20 Range/Units 10:55 11:15 11:24 WBC (4.8-10.8) K/uL RBC (4.7-6.1) M/uL Hgb (14.0-18.0) g/dL Hct (42-52) % MCV (80-100) fL MCH (25-34) pg MCHC (32-36) g/dL RDW Std Deviation (36.4-46.3) fL RDW Coeff of Nakia (11.5-14.5) % Plt Count (130-400) K/uL MPV (7.4-10.4) fL Immature Gran % (Auto) % Neut % (Auto) % Lymph % (Auto) % [place] % (Auto) % Eos % (Auto) % Baso % (Auto) % Immature Gran # (Auto) (0.00-0.02) K/uL Neut # (Auto) (1.4-6.5) K/uL Lymph # (Auto) (1.2-3.4) K/uL [place] # (Auto) (0.11-0.59) K/uL Eos # (Auto) (0-0.5) K/uL Baso # (Auto) (0-0.2) K/uL PT 10.9 (9.0-12.0) Seconds INR 1.0 (0.9-1.1) APTT 36.7 H (21.0-31.0) Seconds PTT Ratio 1.3 Sodium (136-145) mmol/L Potassium (3.5-5.1) mmol/L Chloride (98-107) mmol/L Carbon Dioxide (21-32) mmol/L Anion Gap (3-11) BUN (7-18) mg/dl Creatinine (0.6-1.4) mg/dl Est Cr Clr Drug Dosing ml/min Est GFR ( Amer) Est GFR (Non-Af Amer) BUN/Creatinine Ratio (10-20) Glucose (70-99) mg/dl Lactate 1.4 (0.4-2.0) mmol/L Calcium (8.5-10.1) mg/dl Total Bilirubin (0.2-1) mg/dl AST (15-37) U/L ALT (12-78) U/L Alkaline Phosphatase (45-117) U/L Troponin I (0-0.045) ng/ml NT-Pro-B Natriuret Pep (0-900) pg/ml Total Protein (6.4-8.2) gm/dl Albumin (3.4-5.0) gm/dl Globulin (2.5-4.0) gm/dl Albumin/Globulin Ratio (0.9-2) Urine Color Yellow Urine Appearance Clear (Clear) Urine pH 6.5 (4.5-7.5) Ur Specific [place] 1.017 (1.000-1.030) Urine Protein Negative (Negative) Urine Glucose (UA) Negative (Negative) Urine Ketones Negative (Negative) Urine Blood Negative (Negative) Urine Nitrite Negative (Negative) Urine Bilirubin Negative (Negative) Urine Urobilinogen Negative (Negative) Ur Leukocyte Esterase Negative (Negative) Influenza Type A (PCR) (Neg) Influenza Type B (PCR) (Neg) Administered Medications Vancomycin HCl 1,750 mg/ (Sodium Chloride) 535 mls @ 200 mls/hr IV NOW ONE Stop: 01/15/20 14:13 Last Admin: 01/15/20 12:30 Dose: 200 mls/hr Documented by: [id number] Discontinued Medications Sodium Chloride (Nss 1000ml) 2,000 mls @ 999 mls/hr IV .Q2H1M GUERO Stop: 01/15/20 12:45 Last Admin: 01/15/20 11:27 Dose: 999 mls/hr Documented by: [id number] Levofloxacin/Dextrose (Levaquin/D5w) 750 mg in 150 mls @ 100 mls/hr IV NOW STA Stop: 01/15/20 12:10 Last Infusion: 01/15/20 12:57 Dose: 0 mls/hr Documented by: [id number] Admin: 01/15/20 11:27 Dose: 100 mls/hr Documented by: [id number] Discharge Plan Visit Data Chief Complaint: Respiratory Problems Stated Complaint: PNEUMONIA ED Provider: Aly Martínez Discharge Problem: Hypoxia, Pneumonia, Acute hypotension Forms Stand Alone Forms: [facility] Prescriptions Prescriptions: No Action ferrous sulfate 325 mg (65 mg iron) tablet,delayed release (DR/EC) 325 mg PO BID Qty: 100 RF: 0 hydrocodone-acetaminophen 7.5-325 mg tablet 1 tab PO TID Qty: 90 RF: 0 finasteride 5 mg tablet 5 mg PO HS@2100 Qty: 90 RF: 3 magnesium hydroxide [Milk of Magnesia] 400 mg/5 mL suspension 5 ml PO DAILY PRN (Reason: constipation) RF: 0 polyethylene glycol 3350 [Miralax] 17 gram powder in packet 17 gm PO DAILY PRN (Reason: constipation) RF: 0 sodium chloride [Saline Nasal Mist] 0.65 % aerosol,spray 2 sprays INTNAS TID PRN (Reason: dry nose) RF: 0 ipratropium-albuterol 0.5 mg-3 mg(2.5 mg base)/3 mL solution for nebulization 3 ml INH TID RF: 0 famotidine 20 mg tablet 20 mg PO BID Qty: 30 RF: 5 cyanocobalamin (vitamin B-12) 1,000 mcg capsule 1,000 mcg PO 2XWK RF: 0 codeine-guaifenesin 6.3-100 mg/5 mL liquid 8 ml PO Q6H PRN (Reason: Cough) RF: 0 divalproex [Depakote] 250 mg Tablet,Delayed Release (Dr/Ec) 250 mg PO BID RF: 0 clozapine [Clozaril] 100 mg Tablet 300 mg PO HS@2100 RF: 0 divalproex [Depakote] 125 mg Tablet,Delayed Release (Dr/Ec) 125 mg PO BID RF: 0 cholecalciferol (vitamin D3) [Vitamin D3] 2,000 unit Capsule 2,000 unit PO DAILY@1400 RF: 0 acetaminophen 500 mg Capsule 500 mg PO QID MDD 2000 MG/24 HOURS PRN (Reason: Pain) RF: 0 aspirin 81 mg tablet,delayed release (DR/EC) 81 mg PO HS@2100 RF: 0 Asmanex Twisthaler 220 mcg/ actuation (30) aerosol powdr breath activated 220 mcg inhalation DAILY@2100 RF: 0 (DME) Oxygen Home Liters Per Minute RF: 0 sennosides [Senokot] 8.6 mg tablet 17.2 mg PO DAILY@0800 RF: 0 metoprolol succinate 50 mg tablet extended release 24 hr 50 mg PO DAILY@0800 RF: 0 levothyroxine 25 mcg tablet 25 mcg PO DAILY@1400 RF: 0 tamsulosin 0.4 mg capsule 0.4 mg PO HS@2000 RF: 0 furosemide 40 mg tablet 40 mg PO DAILY 30 Days Qty: 30 RF: 1 Discharge Problem: Pneumonia Qualifiers: Pneumonia type: due to unspecified organism Laterality: unspecified laterality Lung location: unspecified part of lung Qualified Code(s): J18.9 - Pneumonia, unspecified organism
[2020-01-15 11:03] LABS: Hematocrit (blood only) 32.3 % (42-52); Hemoglobin 9.5 g/dL (14.0-18.0); Mean Corpuscular Hemoglobin 27.6 pg (25-34); Mean Corpuscular Hgb Conc 29.4 g/dL (32-36); Mean Corpuscular Volume 93.9 fL (80-100); Mean Platelet Volume 9.1 fL (7.4-10.4); Platelet Count 185 K/uL (130-400); RDW Coefficient of Variation 14.6 % (11.5-14.5); RDW Standard Deviation 50.2 fL (36.4-46.3); Red Blood Count 3.44 M/uL (4.7-6.1); White Blood Count 10.11 K/uL (4.8-10.8)
--- NOTE | 2020-01-15 11:11 | XRay Report ---
XR chest 1V portable CLINICAL HISTORY: Dyspnea dyspnea COMPARISON STUDY: 12/31/2019 FINDINGS: Unchanged cystic process right pulmonary apex. This cavitation with surrounding infiltrativ e change is unaltered. Slight bronchovascular marking prominence throughout both hemithoraces considered unchanged. IMPRESSION: 1. Unchanged consolidative process right upper lung with evidence for central cavitation. 2. Bronchovascular prominence considered chronic and also unchanged. ACT 112: Negative or not required by law. The above report was generated using voice recognition software. It may contain grammatical, syntax or spelling errors. Electronically signed by: Jose Miguel Corrigan M.D. 01/15/2020 11:10 AM
[2020-01-15 11:13] LABS: Partial Thromboplastin Ratio 1.3; Partial Thromboplastin Time 36.7 Seconds (21.0-31.0); Prothrombin Time 10.9 Seconds (9.0-12.0)
[2020-01-15 11:25] LABS: Alanine Aminotransferase 20 U/L (12-78); Albumin Level 2.5 gm/dl (3.4-5.0); Aspartate Aminotransferase 17 U/L (15-37); BUN Creatinine Ratio 21.9 (10-20); Blood Urea Nitrogen 27 mg/dl (7-18); Calcium 9.2 mg/dl (8.5-10.1); Carbon Dioxide 30 mmol/L (21-32); Chloride 105 mmol/L (98-107); Creatinine Clr Calc Pharmacy 64.5 ml/min; Est GFR (Non-African American) 60.4; Glucose 104 mg/dl (70-99); Potassium 4.8 mmol/L (3.5-5.1); Sodium 137 mmol/L (136-145)
[2020-01-15 11:30] LABS: Albumin Globulin Ratio 0.5 (0.9-2); Alkaline Phosphatase 72 U/L (45-117); Bilirubin,Total 0.3 mg/dl (0.2-1); Globulin 5.2 gm/dl (2.5-4.0); NT Pro B Type Natriuretic Pept 1343 pg/ml (0-900); Total Protein 7.7 gm/dl (6.4-8.2); Troponin I < 0.015 ng/ml (0-0.045)
[2020-01-15] MEDS ORDERED: VANCOMYCIN HCL 1,750 MG in SODIUM CHLORIDE 0.9% 500 ML IV ONE (11:33)
[2020-01-15] MEDS ORDERED: VANCOMYCIN CONSULT ACTIVE PRN ×2 (11:33→14:39)
[2020-01-15 11:39] LABS: Appearance Urine Clear (Clear); Bilirubin Urine Negative (Negative); Blood Urine Negative (Negative); Color Urine Yellow; Glucose Urine UA Negative (Negative); Ketones Urine Negative (Negative); Leukocyte Esterase Urine Negative (Negative); Nitrite Urine Negative (Negative); Protein Urine Negative (Negative); Specific Gravity Urine 1.017 (1.000-1.030); Urobilinogen Urine Negative (Negative); pH Urine 6.5 (4.5-7.5)
[2020-01-15 11:40] LABS: Influenza A virus by PCR Neg for Influ A (Neg); Influenza B virus by PCR Neg for Influ B (Neg)
[2020-01-15 11:53] LABS: Basophils # (auto) 0.05 K/uL (0-0.2); Basophils % (auto) 0.5 %; Eosinophils # (auto) 0.23 K/uL (0-0.5); Eosinophils % (auto) 2.3 %; Immature Granulocytes # (auto) 0.63 K/uL (0.00-0.02); Immature Granulocytes % (auto) 6.2 %; Lymphocytes # (auto) 1.76 K/uL (1.2-3.4); Lymphocytes % (auto) 17.4 %; Monocytes # (auto) 1.39 K/uL (0.11-0.59); Monocytes % (auto) 13.7 %; Neutrophils # (auto) 6.05 K/uL (1.4-6.5); Neutrophils % (auto) 59.9 %
--- NOTE | 2020-01-15 12:36 | History & Physical Report ---
Date of Service January 15, 2020 Assessment & Plan (1) Hypoxia: Suspect this is multifactorial. Normal procalcitonin and WBC count less suggestive of acute infection and the patient was just treated for community- acquired pneumonia earlier this month. Patient had a weight gain of 6 kg and wisdom s a elevated BNP which would make an acute exacerbation of diastolic CHF more likely. Patient also has chronic right upper lobe cavitary lesion and has some mild wheezing. Therefore, consideration of hospital acquired pneumonia versus CHF. Will start IV diuresis with Lasix. Monitor daily weights and ins and outs. Patient was given broad-spectrum antibiotics with vancomycin and Levaquin, can continue these until blood and sputum cultures are available.. Duo nebs as needed. Consider pulmonology consultation. We will ask cardiology to evaluate for CHF. Consider repeat 2D echo but will defer to cardiology. (2) Hypothyroidism: Patient is on levothyroxine 25 mcg which we will continue. (3) CKD (chronic kidney disease), stage III: Renal function appears to be stable at this time. Continue to monitor with diuresis. (4) Paranoid schizophrenia: Patient is on several psychiatric medications including Clozaril and Depakote, will continue. (5) CAD in [place] artery: Patient is on low-dose aspirin as an outpatient along with metoprolol. I can continue these as an outpatient as well. Consider addition of statin, will defer to cardiology. History of Present Illness Primary Care Provider: Jong Weir MD This is a 69-year-old male with past medical history of schizophrenia, chronic kidney disease, coronary artery disease, previous history of SOLANGE with a cavitary lesion who presents today complaining of worsening shortness of breath. Patient is a somewhat limited historian but he is accompanied by caregiver who is able to give some details. Patient has been admitted here with shortness of breath from . At the time he was treated for community-acquired pneumonia along with heart failure with diuresis. Caregiver tells me the patient was discharged instructions to use her 2 L nasal cannula around the clock rather than just nightly. However, they have been having insurance problems and have not been able to supply this time. Patient has a follow-up with his PCP on 01/09 and was apparently doing well at that time. The caregiver notes that since then, the patient has had worsening course. This is mostly secondary to shortness of breath along with dyspnea on exertion and poor exercise tolerance. They note that he is not always alert and tends to nod off easily. Patient has had no fevers but they have noticed chills with rigors, sometimes so severe that the patient has difficulty holding things. As he became more hypoxic, he was brought to the emergency room for further evaluation. Here in the ER, patient had a mild elevated temperature 37.8. He was found to be hypoxic at 87%, doing much better on 2 L nasal cannula. Also of note, patient was found to be 93 kg. I note that when he was discharged he was 87 kg. The caregiver tells me that he has been compliant with the Lasix as directed and actually has a cardiology appointment on 01/21. Allergies Allergy/AdvReac Type Severity Reaction Status Date / Time diltiazem Allergy Intermediate rash and Verified 01/15/20 11:57 edema fentanyl AdvReac Confusion Verified 01/15/20 11:57 Home Medications Home Medications Medication Instructions Recorded Confirmed Type acetaminophen 500 mg PO QID PRN MDD 2000 MG/24 08/30/18 01/15/20 History HOURS cholecalciferol (vitamin D3) 2,000 unit PO DAILY@1400 08/30/18 01/15/20 History [Vitamin D3] clozapine [Clozaril] 300 mg PO HS@2100 08/30/18 01/15/20 History divalproex [Depakote] 125 mg PO BID 08/30/18 01/15/20 History divalproex [Depakote] 250 mg PO BID 08/30/18 01/15/20 History cyanocobalamin (vitamin B-12) 1,000 mcg PO 2XWK 07/25/19 01/15/20 History 1,000 mcg capsule Asmanex Twisthaler 220 mcg INHALATION DAILY@2100 08/01/19 01/15/20 History Oxygen Home 08/01/19 01/10/20 History aspirin 81 mg PO HS@2100 08/01/19 01/15/20 History famotidine 20 mg tablet 20 mg PO BID #30 tab 08/27/19 01/15/20 Rx ferrous sulfate 325 mg (65 mg 325 mg PO BID #100 tab 12/07/19 01/15/20 Rx iron) tablet,delayed release hydrocodone 7.5 mg-acetaminophen 1 tab PO TID #90 tab 12/21/19 01/15/20 Rx 325 mg tablet levothyroxine 25 mcg PO DAILY@1400 12/31/19 01/15/20 History metoprolol succinate 50 mg PO DAILY@0800 12/31/19 01/15/20 History sennosides [Senokot] 17.2 mg PO DAILY@0800 12/31/19 01/15/20 History tamsulosin 0.4 mg PO HS@2000 12/31/19 01/15/20 History finasteride 5 mg tablet 5 mg PO HS@2100 #90 tab 01/02/20 01/15/20 Rx furosemide 40 mg PO DAILY 30 Days #30 tab 01/04/20 01/15/20 Rx ipratropium 0.5 mg-albuterol 3 mg 3 ml INH TID ml 01/07/20 01/15/20 History (2.5 mg base)/3 mL nebulization soln magnesium hydroxide 400 mg/5 mL 5 ml PO DAILY PRN 01/07/20 01/15/20 History oral suspension polyethylene glycol 3350 17 gram 17 gm PO DAILY PRN 01/07/20 01/15/20 History oral powder packet sodium chloride 0.65 % nasal spray 2 sprays INTNAS TID PRN ml 01/07/20 01/15/20 History aerosol codeine 6.3 mg-guaifenesin 100 8 ml PO Q6H PRN 01/10/20 01/15/20 History mg/5 mL oral liquid Past Med/Surg History Social History Preferred Language: Arabic Communication Ability: Effective Visual Impairment: No Limitations Hearing Ability: Normal 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 Beliefs That Will Affect Care: None marital status: Single Current Living Situation: Personal Care Facility Current Living Situation Comment: lives [employer] current occupational status: retired Feels Safe at Home: Yes Smoking Status: Never smoker Tobacco Type: cigarettes ; Second Hand Exposure: No ; Hx Alcohol Use: No Hx Substance Use: Yes substance use type: prescription drug Substance Use Type Other:: hydrocodone Review of Systems Review of Systems: Unobtainable due to cognitive status Physical Exam Constitutional: cooperative and comfortable; no acute distress Neck: trachea midline, no thyromegaly Respiratory: normal respiratory effort Auscultation: + diminished lung sounds, + rhonchi and + wheezes (Faint and expiratory wheeze); no crackles and no rales Cardiovascular: Rate/Rhythm: regular rate and regular rhythm Heart Sounds: normal S1 and normal S2 Vessels: no JVD and no carotid bruit Extremities: + pedal edema (1+) Gastrointestinal (Abdomen): Inspection/Auscultation: abdomen normal to inspection Percussion/Palpation: abdomen soft; abdomen nontender, no guarding, abdomen not rigid and no hepatosplenomegaly Skin: no rashes, warm and dry Neurologic: PERRL, EOMI, accommodation nl, no face palsy, no dysarthria Results & Data Vital Signs (Past 12 Hours) Vital Signs Temp Pulse Pulse Resp BP BP Pulse Ox 01/15/20 12:15 74 24 100 01/15/20 12:00 73 19 126/63 100 01/15/20 11:45 72 19 100 01/15/20 11:30 74 19 115/66 100 01/15/20 11:25 75 24 117/57 L 99 01/15/20 11:15 76 75 20 117/57 L 100 01/15/20 11:00 82 20 97 01/15/20 10:46 37.8 C H 80 80 20 85/67 L 93 01/15/20 10:44 80 23 85/67 L 93 01/15/20 10:40 80 18 93 01/15/20 10:20 36.7 C 80 18 96/43 L 93 Laboratory Results WBCs of 10.1, hemoglobin 9.5, hematocrit of 32.3, platelets 185. INR of 1. Sodium 137, potassium 4.8, chloride 105, carbon dioxide 30, creatinine 1.23 with a BUN of 27. Glucose 104. Lactate of 1.4. Calcium 9.2. LFTs are normal. BNP is 1343. UA is negative. Influenza a and B are negative. Diagnostic Findings XR chest 1V portable CLINICAL HISTORY: Dyspnea dyspnea COMPARISON STUDY: 12/31/2019 FINDINGS: Unchanged cystic process right pulmonary apex. This cavitation with surrounding infiltrative change is unaltered. Slight bronchovascular marking prominence throughout both hemithoraces considered unchanged. IMPRESSION: 1. Unchanged consolidative process right upper lung with evidence for central cavitation. 2. Bronchovascular prominence considered chronic and also unchanged. --- Last echo in our system is from 07/13/2019. Patient has mild aortic valve sclerosis, LVH. There is mitral annular calcification. The ventricle is hyperdynamic with an EF of 65-70%. PG Care Time/CCT Total # of Minutes Spent Total Time Spent with Patient: Total time spent is greater than 50% in coordination of care (as documented) at patient's floor/unit and/or counseling patient: Coding Level of Care Code 07970 Initial Inpt Care Lvl 3 Diagnoses Hypoxia R09.02 Hypothyroidism E03.9 CKD (chronic kidney disease), stage III N18.3 Paranoid schizophrenia F20.0 CAD in [place] artery I25.10
[2020-01-15] MEDS ORDERED: MAGNESIUM HYDROXIDE SUSP 30 ML UDC PO PRN (14:39)
[2020-01-15] MEDS ORDERED: SODIUM CHLORIDE 0.65% NA SOLN 45 ML (OCEAN) PRN (14:39)
[2020-01-15] MEDS ORDERED: POLYETHYLENE (MIRALAX) 17 GM PACK PO PRN (14:39)
[2020-01-15] MEDS ORDERED: FUROSEMIDE 40 MG/4 ML VIAL IV SCH (14:39)
[2020-01-15] MEDS: ALBUT/IPRATROP 3MG/0.5MG NEB 3 ML VIAL INH SCH ×2 (15:25→21:58)
[2020-01-15] MEDS: CHOLECALCIFEROL 1,000 UNITS 25 MCG TAB PO SCH (15:39)
[2020-01-15] MEDS: HEPARIN SOD 5,000 UNIT/0.5 ML VIAL SQ SCH ×2 (15:40→20:54)
[2020-01-15] MEDS: LEVOTHYROXINE SODIUM 25 MCG TABLET PO SCH (15:40)
--- NOTE | 2020-01-15 15:58 | Pharmacy Report ---
Pharmacy Abx Initial Consult - Date of Service January 15, 2020 - Pharmacy Dosing Scope Date of Consult: 01/15/20 Consultation requested by: Dr. Andrade Pharmacy is consulted to initiate vancomycin IV dosing therapy, order appropriate labs and adjust drug dose/frequency. - Subjective The patient is a 69 year old M admitted on 01/15/20 13:01. - Objective Height: 5 ft 8 in Weight: 93 kg Vital Signs (Past 12hrs): Vital Signs Temp Pulse Pulse Pulse Resp BP BP 01/15/20 15:25 68 20 01/15/20 14:20 36.7 C 79 129/76 01/15/20 14:04 36.6 C 74 20 136/81 01/15/20 14:00 74 20 136/81 01/15/20 13:30 74 20 127/88 01/15/20 13:00 36.6 C 75 17 108/59 L 01/15/20 12:30 75 22 119/61 01/15/20 12:15 74 24 01/15/20 12:00 73 19 126/63 01/15/20 11:45 72 19 01/15/20 11:30 74 19 115/66 01/15/20 11:25 75 24 117/57 L 01/15/20 11:15 76 75 20 117/57 L 01/15/20 11:00 82 20 01/15/20 10:46 37.8 C H 80 80 20 85/67 L 01/15/20 10:44 80 23 85/67 L 01/15/20 10:40 80 18 01/15/20 10:20 36.7 C 80 18 96/43 L Pulse Ox 01/15/20 15:25 97 01/15/20 14:20 95 01/15/20 14:04 93 01/15/20 14:00 93 01/15/20 13:30 96 01/15/20 13:00 99 01/15/20 12:30 97 01/15/20 12:15 100 01/15/20 12:00 100 01/15/20 11:45 100 01/15/20 11:30 100 01/15/20 11:25 99 01/15/20 11:15 100 01/15/20 11:00 97 01/15/20 10:46 93 01/15/20 10:44 93 01/15/20 10:40 93 03/17/20 10:20 93 Lab Results (24hrs): Laboratory Tests (24 Hours) 01/15/20 01/15/20 10:55 10:55 WBC 10.11 Neut # (Auto) 6.05 Creatinine 1.23 Est Cr Clr Drug Dosing 64.5 Micro Results: 01/15/20 11:13 Aerobic Blood Culture - Pending Blood Anaerobic Blood Culture - Pending 01/15/20 11:24 Aerobic Blood Culture - Pending Blood Anaerobic Blood Culture - Pending - Risk Factors for Resistance * Hospitalization for 48 hours or more within the past 90 days * Antimicrobial use within the last 90 days (ceftriaxone, cefdinir, azithromycin earlier this month) - Assessment & Plan Assessment 69 year old M ordered empiric vancomycin and levofloxacin for possible HAP given recent hospitalization earlier this month vs. CHF exacerbation. Patient was treated at that time for CAP with ceftriaxone and azithromycin. This admission, patient presented with increasing shortness of breath and weakness. SCr seems mildly elevated at 1.23 mg/dL from most recent baseline of 1-1.1 mg/dL. Will follow. Blood cultures x 2: pending Influenza: negative MRSA swab ordered Plan Vancomycin IV * Estimated PK Parameters: Vd 0.6 L/kg, Brent 0.058 hr-1, t1/2 12 hr * Loading dose: 1750 mg (19 mg/kg) * Maintenance dose: 1250 mg IV (13 mg/kg) every 14 hours * Goal trough level for pneumonia : 15 to 20 mcg/mL * Trough level ordered for 01/17/20 Levofloxacin IV * 750 mg IV q24h appropriate for estimated CrCl of 64 mL/min Pharmacy will continue to follow and will adjust dose/frequency as necessary. Thank you.
[2020-01-15] MEDS ORDERED: FUROSEMIDE 40 MG in SYRINGE 0 ML IV SCH (16:00)
--- NOTE | 2020-01-15 18:57 | Cardiology Consultation ---
Date of Consultation January 15, 2020 Assessment & Plan (1) Acute and chronic respiratory failure with hypoxia: (2) CAD in [place] artery: ASSESSMENT/PLAN: 1. Acute on chronic respiratory failure with hypoxia: He does not appear to be significantly hypervolemic on examination. His proBNP is chronically elevated and lower today than it was last admission. In the past that has been as high as [phone]. His most recent CT scan earlier this month was quite impressive regarding his right lung field. He also has not been using supplemental oxygen throughout the day as instructed when recently discharged. Be cautious to not over diurese. Consider pulmonary evaluation. He was evaluated on 10/31/2018 by pulmonology who felt as though he had pulmonary fibrosis secondary to chronic aspiration as well as tracheal bronchomalacia. Suspect that pulmonary issues are the primary cause of his shortness of breath at this time. 2. CAD: It is not clear how he was diagnosed with CAD. He does not recall having a cardiac catheterization. Coronary calcifications were reported on most recent CT scan of the chest. Statin therapy. Can continue aspirin 81 mg daily. No angina. 3. Disposition: Please call with any other questions or concerns. Thank you for allowing me to participate in the care of your patient. Please call for any other questions or concerns. Sincerely, aTras Lara M.D. History of Present Illness Reason for Consultation: CHF Requesting Physician: Dr. Andrade Attending Physician: Toribio Andrade, DO History of Present Illness Mr. Pulido is a pleasant 69-year-old gentleman with a history significant for schizophrenia, CKD, anemia, and previous history of SOLANGE with a pulmonary cavitary lesion who presented to [facility] earlier today with shortness of breath. At the bedside was a caregiver (Sreekanth) at [facility] Sreekanth was able to offer some history, when the patient himself was unable to offer further details. He was recently hospitalized here and treated for pneumonia. He also underwent diuresis for possible heart failure according to records. He was discharged on supplemental oxygen 2 L via nasal cannula. He has become more short of breath recently. According to the H and P, he also had chills with rigors to the point where the patient had difficulty holding things. He also had become hypoxic. Mr. Pulido admits that he was short of breath in any position. He does very little walking, walking around his facility with the assistance of a walker once or twice per day. Otherwise, he remains sedentary. He does wear compression stockings. He maintains a low-sodium diet. He was instructed to weigh himself daily however the scale apparently has been very inconsistent according to Sreekanth, sometimes suggesting a 30 lb weight change from day-to-day. He admits that he has had cough over the past few days with yellow sputum. He feels hot at times but no documented fever. On presentation, there was concern that he has CHF versus pneumonia and he has been placed on broad-spectrum antibiotics as well as furosemide 40 mg IV b.i.d.. Review of systems: As above. He also admits to nausea. Review of systems otherwise negative/unremarkable. Family history: No known premature CAD. Social history: He quit smoking approximately 20 years ago after 20 pack years. No alcohol or drugs. in 1969. No children. Resides at [facility]. Allergies Allergy/AdvReac Type Severity Reaction Status Date / Time diltiazem Allergy Intermediate rash and Verified 01/15/20 11:57 edema fentanyl AdvReac Confusion Verified 01/15/20 11:57 Home Medications Home Medications Medication Instructions Recorded Confirmed Type acetaminophen 500 mg PO QID PRN MDD 2000 MG/24 08/30/18 01/15/20 History HOURS cholecalciferol (vitamin D3) 2,000 unit PO DAILY@1400 08/30/18 01/15/20 History [Vitamin D3] clozapine [Clozaril] 300 mg PO HS@2100 08/30/18 01/15/20 History divalproex [Depakote] 125 mg PO BID 08/30/18 01/15/20 History divalproex [Depakote] 250 mg PO BID 08/30/18 01/15/20 History cyanocobalamin (vitamin B-12) 1,000 mcg PO 2XWK 07/25/19 01/15/20 History 1,000 mcg capsule Asmanex Twisthaler 220 mcg INHALATION DAILY@209908/01/19 01/15/20 History Oxygen Home 08/01/19 01/10/20 History aspirin 81 mg PO HS@2100 08/01/19 01/15/20 History famotidine 20 mg tablet 20 mg PO BID #30 tab 08/27/19 01/15/20 Rx ferrous sulfate 325 mg (65 mg 325 mg PO BID #100 tab 12/07/19 01/15/20 Rx iron) tablet,delayed release hydrocodone 7.5 mg-acetaminophen 1 tab PO TID #90 tab 12/21/19 01/15/20 Rx 325 mg tablet levothyroxine 25 mcg PO DAILY@1400 12/31/19 01/15/20 History metoprolol succinate 50 mg PO DAILY@0800 12/31/19 01/15/20 History sennosides [Senokot] 17.2 mg PO DAILY@0800 12/31/19 01/15/20 History tamsulosin 0.4 mg PO HS@2000 12/31/19 01/15/20 History finasteride 5 mg tablet 5 mg PO HS@2100 #90 tab 01/02/20 01/15/20 Rx furosemide 40 mg PO DAILY 30 Days #30 tab 01/04/20 01/15/20 Rx ipratropium 0.5 mg-albuterol 3 mg 3 ml INH TID ml 01/07/20 01/15/20 History (2.5 mg base)/3 mL nebulization soln magnesium hydroxide 400 mg/5 mL 5 ml PO DAILY PRN 01/07/20 01/15/20 History oral suspension polyethylene glycol 3350 17 gram 17 gm PO DAILY PRN 01/07/20 01/15/20 History oral powder packet sodium chloride 0.65 % nasal spray 2 sprays INTNAS TID PRN ml 01/07/20 01/15/20 History aerosol codeine 6.3 mg-guaifenesin 100 8 ml PO Q6H PRN 01/10/20 01/15/20 History mg/5 mL oral liquid Patient History Medical History Abnormal chest CT Acute hyponatremia Acute respiratory failure with hypoxia Anemia Aspiration pneumonia Asymptomatic hyperuricemia Avascular necrosis Benign prostatic hyperplasia with urinary obstruction BPH (benign prostatic hyperplasia) (Chronic) CAD in [place] (Chronic) Chronic diastolic CHF (congestive heart failure) Chronic kidney disease (CKD), stage III (moderate) Congestive heart failure (CHF) (Chronic) Discharge planning issues Dislocation of shoulder DVT prophylaxis Dysphagia Edema GERD (gastroesophageal reflux disease) Hemorrhoids Hiatal hernia Hyperammonemia (Resolved) Hypercalcemia Hypercholesterolemia Hyperglobulinemia Hyperkalemia, diminished renal excretion Hypertension (Chronic) Hyponatremia (Resolved) Inappropriate ADH syndrome Joint pain, hip Left ventricular hypertrophy Leukocytosis 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 Metabolic encephalopathy Mycobacterium avium infection Obesity Obstructive sleep apnea Paranoid schizophrenia Pneumonia Prostatitis Seborrheic keratosis Seizure disorder Sepsis Tinea corporis Vitamin D deficiency Social History Preferred Language: Yi Communication Ability: Effective Visual Impairment: No Limitations Hearing Ability: Normal Reference Assistant Required: No Beliefs That Will Affect Care: None marital status: Single Current Living Situation: Personal Care Facility Current Living Situation Comment: lives [employer] current occupational status: retired Other Information That Helps Us Care for You: No Feels Safe at Home: Yes Safety Concerns: Feels Safe At This Time Smoking Status: Never smoker Tobacco Type: cigarettes ; Do You Dip or Chew Tobacco: No ; Second Hand Exposure: No ; Tobacco Cessation Education Requested by Patient: No Hx Alcohol Use: No Hx Substance Use: Yes substance use type: prescription drug Substance Use Type Other:: hydrocodone Last Used Substance Other:: 8 am today Physical Exam Physical Exam: Gen.: No acute distress. Alert. HEENT: Anicteric sclera. Neck: No appreciable JVD. No hepatic jugular reflux. No bruits. Normal carotid upstrokes bilaterally. Cardiac: PMI was nonpalpable . No ventricular heave. Regular rate and rhythm. Normal S1-S2. No murmurs, rubs, or gallops. Pulmonary: Right crackles and wheezing. Decreased breath sounds within the left lung field with wheezing. Abdomen: Soft, nontender, nondistended, with normoactive bowel sounds. No bruits noted. Extremities: 2+ radial pulses bilaterally. 2+ posterior tibialis pulses bilaterally. Trace bilateral lower extremity edema. No cyanosis. No palpable cords. Results & Data ([facility]) Vital Signs (Past 12 Hours) Vital Signs Temp Pulse Pulse Pulse Resp BP BP 01/15/20 16:42 77 01/15/20 15:54 36.5 C 78 17 146/74 H 01/15/20 15:25 68 20 01/15/20 14:20 36.7 C 79 129/76 01/15/20 14:04 36.6 C 74 20 136/81 01/15/20 14:00 74 20 136/81 01/15/20 13:30 74 20 127/88 01/15/20 13:00 36.6 C 75 17 108/59 L 01/15/20 12:30 75 22 119/61 01/15/20 12:15 74 24 01/15/20 12:00 73 19 126/63 01/15/20 11:45 72 19 01/15/20 11:30 74 19 115/66 01/15/20 11:25 75 24 117/57 L 01/15/20 11:15 76 75 20 117/57 L 01/15/20 11:00 82 20 01/15/20 10:46 37.8 C H 80 80 20 85/67 L 01/15/20 10:44 80 23 85/67 L 01/15/20 10:40 80 18 01/15/20 10:20 36.7 C 80 18 96/43 L Pulse Ox 01/15/20 16:42 01/15/20 15:54 99 01/15/20 15:25 97 01/15/20 14:20 95 01/15/20 14:04 93 01/15/20 14:00 93 01/15/20 13:30 96 01/15/20 13:00 99 01/15/20 12:30 97 01/15/20 12:15 100 01/15/20 12:00 100 01/15/20 11:45 100 01/15/20 11:30 100 01/15/20 11:25 99 01/15/20 11:15 100 01/15/20 11:00 97 01/15/20 10:46 93 01/15/20 10:44 93 01/15/20 10:40 93 01/15/20 10:20 93 Intake & Output 01/13/20 01/14/20 01/15/20 01/16/20 06:59 06:59 06:59 06:59 Intake Total 2685 / 2685 Output Total 650 / 650 Balance 2034 / 2034 Weight 93 kg Laboratory Results Laboratory Results - last 24 hr 01/15/20 01/15/20 01/15/20 10:54 10:55 10:55 WBC 10.11 RBC 3.44 L Hgb 9.5 L Hct 32.3 L MCV 93.9 MCH 27.6 MCHC 29.4 L RDW Std Deviation 50.2 H RDW Coeff of [place] 14.6 H Plt Count 185 MPV 9.1 Immature Gran % (Auto) 6.2 Neut % (Auto) 59.9 Lymph % (Auto) 17.4 [place] % (Auto) 13.7 Eos % (Auto) 2.3 Baso % (Auto) 0.5 Immature Gran # (Auto) 0.63 H Neut # (Auto) 6.05 Lymph # (Auto) 1.76 [place] # (Auto) 1.39 H Eos # (Auto) 0.23 Baso # (Auto) 0.05 PT INR APTT PTT Ratio Sodium 137 Potassium 4.8 Chloride 105 Carbon Dioxide 30 Anion Gap 2.0 L BUN 27 H Creatinine 1.23 Est Cr Clr Drug Dosing 64.5 Est GFR ( Amer) 70.0 Est GFR (Non-Af Amer) 60.4 BUN/Creatinine Ratio 21.9 H Glucose 104 H Lactate Calcium 9.2 Total Bilirubin 0.3 AST 17 ALT 20 Alkaline Phosphatase 72 Troponin I < 0.015 NT-Pro-B Natriuret Pep 1343 H Total Protein 7.7 Albumin 2.5 L Globulin 5.2 H Albumin/Globulin Ratio 0.5 L Urine Color Urine Appearance Urine pH Ur Specific [place] Urine Protein Urine Glucose (UA) Urine Ketones Urine Blood Urine Nitrite Urine Bilirubin Urine Urobilinogen Ur Leukocyte Esterase Influenza Type A (PCR) Neg for Influ A Influenza Type B (PCR) Neg for Influ B 01/15/20 01/15/20 01/15/20 10:55 11:15 11:24 WBC RBC Hgb Hct MCV MCH MCHC RDW Std Deviation RDW Coeff of [place] Plt Count MPV Immature Gran % (Auto) Neut % (Auto) Lymph % (Auto) [place] % (Auto) Eos % (Auto) Baso % (Auto) Immature Gran # (Auto) Neut # (Auto) Lymph # (Auto) [place] # (Auto) Eos # (Auto) Baso # (Auto) PT 10.9 INR 1.0 APTT 36.7 H PTT Ratio 1.3 Sodium Potassium Chloride Carbon Dioxide Anion Gap BUN Creatinine Est Cr Clr Drug Dosing Est GFR ( Amer) Est GFR (Non-Af Amer) BUN/Creatinine Ratio Glucose Lactate 1.4 Calcium Total Bilirubin AST ALT Alkaline Phosphatase Troponin I NT-Pro-B Natriuret Pep Total Protein Albumin Globulin Albumin/Globulin Ratio Urine Color Yellow Urine Appearance Clear Urine pH 6.5 Ur Specific [place] 1.017 Urine Protein Negative Urine Glucose (UA) Negative Urine Ketones Negative Urine Blood Negative Urine Nitrite Negative Urine Bilirubin Negative Urine Urobilinogen Negative Ur Leukocyte Esterase Negative Influenza Type A (PCR) Influenza Type B (PCR) Diagnostic Findings TelemetryPersonally reviewed: Sinus rhythm. ECG 01/15/2020 personally reviewed: Sinus rhythm first-degree AV block at 80 bpm. Echo 07/13/2019: Hyperdynamic LV systolic function. EF 65-70%. Mild LVH. Severe MAC. Sclerotic aortic valve. Chest x-ray 01/15/2020: Unchanged consolidative process involving the right upper lung with evidence for central cavitation. Bronchovascular prominence considered chronic and unchanged per Radiology. Chest x-ray imaging personally reviewed and chest x-ray findings appear similar to most recent. CTA chest 12/31/2019: No PE. Interval increase in consolidation within the right upper lobe. Pleural and subpleural thickening. Coronary artery calcification. Medications Administered Current Inpatient Medications Acetaminophen (Tylenol) 500 mg PO QID PRN PRN Reason: Pain Albuterol (Duoneb) 3 ml INH TIDR [facility] Stop: 02/14/20 14:59 Last Admin: 01/15/20 15:25 Dose: 3 ml Documented by: Aspirin (Ecotrin Ectab) 81 mg PO HS@2100 [facility] Stop: 02/14/20 20:59 Clozapine (Clozapine) 300 mg PO HS@2100 [facility] Stop: 02/14/20 20:59 Cyanocobalamin (Vitamin B-12) 1,000 mcg PO MoFr@2100 [facility] Stop: 02/17/20 20:59 Divalproex Sodium (Depakote Delay Release) 125 mg PO BID@08,2099 [facility] Stop: 02/14/20 20:59 Divalproex Sodium (Depakote Delay Release) 250 mg PO BID@0800,2099 [facility] Stop: 02/14/20 20:59 Famotidine (Pepcid) 20 mg PO BID [facility] Stop: 02/14/20 20:59 Ferrous Sulfate (Feosol) 325 mg PO BID [facility] Stop: 02/14/20 20:59 Finasteride (Proscar) 5 mg PO HS@2100 [facility] Stop: 02/14/20 20:59 Fluticasone Furoate (Arnuity Ellipta 100mcg) 1 puffs INH DAILY@2100 [facility]; Protocol Stop: 02/14/20 20:59 Heparin Sodium (Porcine) (Heparin Sodium (Porcine)) 5,000 units SQ Q8 [facility] Stop: 02/14/20 15:14 Last Admin: 01/15/20 15:40 Dose: 5,000 units Documented by: Levofloxacin/Dextrose (Levaquin/D5w) 750 mg in 150 mls @ 100 mls/hr IV Q24H [facility]; Protocol Stop: 01/23/20 10:59 Vancomycin HCl 1,250 mg/ (Sodium Chloride) 275 mls @ 125 mls/hr IV Q14H [facility]; Protocol Stop: 01/23/20 01:59 Furosemide 40 mg/ Syringe 4 mls @ 4 mls/min IV BID17 [facility] Stop: 02/14/20 15:59 Last Admin: 01/15/20 15:56 Dose: 4 mls/min Documented by: Levothyroxine Sodium (Synthroid) 25 mcg PO DAILY@1400 [facility] Stop: 02/14/20 15:14 Last Admin: 01/15/20 15:40 Dose: 25 mcg Documented by: Magnesium Hydroxide (Milk Of Magnesia) 5 ml PO DAILY PRN PRN Reason: constipation Stop: 02/14/20 14:38 Metoprolol Succinate (Toprol Xl) 50 mg PO DAILY@0800 [facility] Stop: 02/15/20 07:59 Miscellaneous Information (Consult) 1 ea N/A UD PRN PRN Reason: Consult Stop: 02/14/20 14:38 Polyethylene Glycol (Miralax Powder Packet) 17 gm PO DAILY PRN PRN Reason: constipation Stop: 02/14/20 14:38 Sennosides (Senokot) 17.2 mg PO DAILY@0800 [facility] Stop: 02/15/20 07:59 Sodium Chloride ([place] Nasal) 2 sprays NA TID PRN PRN Reason: dry nose Stop: 02/14/20 14:38 Tamsulosin HCl (Flomax) 0.4 mg PO HS@2000 [facility] Stop: 02/14/20 19:59 Vitamin D (Vitamin D3) 2,000 units PO DAILY@1400 [facility] Stop: 02/14/20 15:14 Last Admin: 01/15/20 15:39 Dose: 2,000 units Documented by: PG Care Time/CCT Total # of Minutes Spent Total Time Spent with Patient: Total time spent is greater than 50% in coordination of care (as documented) at patient's floor/unit and/or counseling patient: Coding Level of Care Code 15805 Initial Inpt Care Lvl 3 Diagnoses Acute and chronic respiratory failure with hypoxia J96.21 CAD in [place] artery I25.10
[2020-01-15] MEDS: DIVALPROEX DELAY RELEASE 250 MG TABEC PO SCH (19:51)
[2020-01-15] MEDS: FERROUS SULFATE 325 MG TAB PO SCH (19:51)
[2020-01-15] MEDS: FAMOTIDINE 20 MG TAB PO SCH (19:52)
[2020-01-15] MEDS: TAMSULOSIN HCL 0.4 MG CAP PO SCH (19:52)
[2020-01-15] MEDS: DIVALPROEX DELAY RELEASE 125 MG TABEC PO SCH (19:52)
[2020-01-15] MEDS: cloZAPine 100 MG TAB PO SCH (19:52)
[2020-01-15] MEDS: ASPIRIN 81 MG ECTAB PO SCH (19:53)
[2020-01-15] MEDS: FINASTERIDE 5 MG TAB PO SCH (19:53)
[2020-01-15] MEDS: FLUTICASONE FUROATE 100MCG 14 PUFFS/INHALER INH SCH (19:54)
[2020-01-15] MEDS: ACETAMINOPHEN 500 MG TAB PO PRN (20:55)
--- NOTE | 2020-01-15 22:57 | Electrocardiogram Report ---
Test Reason : Blood Pressure : / mmHG Vent. Rate : 080 BPM Atrial Rate : 080 BPM P-R Int : 212 ms QRS Dur : 090 ms QT Int : 378 ms P-R-T Axes : 037 001 011 degrees QTc Int : 435 ms Sinus rhythm with 1st degree A-V block Otherwise normal ECG When compared with ECG of 31-DEC-2019 10:22, No significant change was found Confirmed by New Lara ([id number]) on 01/15/2020 10:57:14 PM Referred By: ED Confirmed By:New Lara
[2020-01-16] MEDS ORDERED: VANCOMYCIN HCL 1,250 MG in SODIUM CHLORIDE 0.9% 250 ML IV SCH (02:00)
[2020-01-16] MEDS: HEPARIN SOD 5,000 UNIT/0.5 ML VIAL SQ SCH ×3 (05:57→20:10)
[2020-01-16] MEDS: ACETAMINOPHEN 500 MG TAB PO PRN (06:04)
[2020-01-16] MEDS: ALBUT/IPRATROP 3MG/0.5MG NEB 3 ML VIAL INH SCH ×3 (07:11→19:14)
[2020-01-16 08:01] LABS: Hematocrit (blood only) 30.8 % (42-52); Hemoglobin 9.3 g/dL (14.0-18.0); Mean Corpuscular Hemoglobin 27.5 pg (25-34); Mean Corpuscular Hgb Conc 30.2 g/dL (32-36); Mean Corpuscular Volume 91.1 fL (80-100); Mean Platelet Volume 9.8 fL (7.4-10.4); Platelet Count 191 K/uL (130-400); RDW Coefficient of Variation 14.3 % (11.5-14.5); RDW Standard Deviation 47.7 fL (36.4-46.3); Red Blood Count 3.38 M/uL (4.7-6.1); White Blood Count 9.47 K/uL (4.8-10.8)
[2020-01-16 08:26] LABS: Basophils # (auto) 0.05 K/uL (0-0.2); Basophils % (auto) 0.5 %; Calcium 8.9 mg/dl (8.5-10.1); Creatinine Clr Calc Pharmacy 73.7 ml/min; Eosinophils % (auto) 2.1 %; Est GFR (African American) 84.7; Est GFR (Non-African American) 73.1; Immature Granulocytes # (auto) 0.79 K/uL (0.00-0.02); Immature Granulocytes % (auto) 8.3 %; Lymphocytes # (auto) 2.27 K/uL (1.2-3.4); Magnesium 2.2 mg/dl (1.8-2.4); Monocytes # (auto) 1.03 K/uL (0.11-0.59); Monocytes % (auto) 10.9 %; Neutrophils # (auto) 5.13 K/uL (1.4-6.5); Neutrophils % (auto) 54.2 %; Potassium 4.8 mmol/L (3.5-5.1)
[2020-01-16] MEDS: FAMOTIDINE 20 MG TAB PO SCH ×2 (08:28→20:08)
[2020-01-16] MEDS: METOPROLOL SUCC 50MG EXT REL TAB PO SCH (08:28)
[2020-01-16] MEDS: SENNA 8.6 MG TAB PO SCH (08:28)
[2020-01-16] MEDS: DIVALPROEX DELAY RELEASE 125 MG TABEC PO SCH ×2 (08:29→20:07)
[2020-01-16] MEDS: DIVALPROEX DELAY RELEASE 250 MG TABEC PO SCH ×2 (08:29→20:07)
[2020-01-16] MEDS: FERROUS SULFATE 325 MG TAB PO SCH ×2 (08:29→20:08)
[2020-01-16] MEDS: LEVOFLOXACIN/D5W 750 MG/150 ML BAG IV SCH (10:59)
--- NOTE | 2020-01-16 12:23 | Hospitalist Progress Note ---
Date of Service January 16, 2020 Assessment & Plan (1) Hypoxia: Suspected mostly due to chronic fibrotic lung disease and SOLANGE Will continue IV lasix (only 40mg daily) and monitor Cr but he appears euvolemic on exam MRSA nasal swab negative therefore vancomycin d/c QTc 435ms therefore ok to continue on levaquin. Given improvement previously on antibiotics will continue despite procalcitonin negative. PT/OT/ 2 step (2) Pneumonia: Continue levaquin for total 10-14 day course as long as QTc stable. (3) SOLANGE (mycobacterium avium-intracellulare): Not for active treatment as above. (4) Hypothyroidism: TSH recently 2.87. Continue levothyroxine 25 mcg PO daily (5) CKD (chronic kidney disease), stage III: Renal function appears to be stable at this time. Continue to monitor with diuresis. (6) Paranoid schizophrenia: Patient is on several psychiatric medications including Clozaril and Depakote, will continue. (7) CAD in [place] artery: Patient is on low-dose aspirin as an outpatient along with metoprolol. Will defer statin to outpatient providers (8) Cavitary lesion of lung: Chronic. Consult pulmonology regarding need for prolonged antibiotics and antibiotic selection No change on chest x-ray from prior admissions. Admission and Anticipated Discharge Date Admission Date: January 15, 2020 Anticipated date of discharge: 01/17/20 Subjective Patient reports ongoing very productive cough. Unable to give me much of a history of how long this has been going on for. No fevers or chills. Currently requiring 2L O2 and on none at [place] [facility]. No significant shortness of breath. Reviewed prior notes and productive cough appears to be chronic,possibly related to chronic aspirations although prior speech assessment noted no aspirations. He has SOLANGE with is untreated as would require 2-5 years of triple therapy and was felt with his psychiatric medications the risks would outweigh benefits. On discussing with prior provider Dr Montilla however he reports on the last admission his cough did improve with antibiotics given (cefdinir and azithormycin) however appears he followed up shortly with his PCP and was more hypoxic at that time with plans to see pulmonology as an outpatient therefore Pulm consulted for this admission. Review of Systems Review of Systems: All systems reviewed & are unremarkable except as noted in HPI & below Physical Exam Constitutional: cooperative and comfortable; no acute distress Eyes: + anicteric sclerae; normal pupil size Neck: trachea midline, no thyromegaly Respiratory: normal respiratory effort and + cough (thick yellow sputum productive) Auscultation: + diminished lung sounds (right upper lobe) and + rhonchi (b/l R > L); no crackles, no rales and no wheezes Cardiovascular: Rate/Rhythm: regular rate and regular rhythm Heart Sounds: normal S1, normal S2 and + murmur (LLSB systolic) Vessels: no JVD Extremities: normal capillary refill and + pedal edema (trace b/l equal); no calf tenderness Gastrointestinal (Abdomen): Inspection/Auscultation: abdomen normal to inspection and normal bowel sounds Percussion/Palpation: abdomen soft; abdomen nontender, no guarding and abdomen not rigid Musculoskeletal: no cyanosis or clubbing, extremities motor strength 5/5 Skin: no rashes, warm and dry Neurologic: moves all extremities and awake; not confused Psychiatric: A+Ox3, euthymic affect Lymphatic: no cervical or axillary lymphadenopathy Results & Data ([facility]) Vital Signs (Past 12 Hours) Vital Signs Temp Pulse Pulse Resp BP Pulse Ox 01/16/20 11:36 36.7 C 91 H 20 127/74 90 01/16/20 07:32 90 01/16/20 07:11 88 20 98 01/16/20 07:10 36.5 C 87 20 130/75 98 01/16/20 03:37 37.1 C 88 18 114/65 90 PG Care Time/CCT Total # of Minutes Spent Total Time Spent with Patient: Total time spent is greater than 50% in coordination of care (as documented) at patient's floor/unit and/or counseling patient: Coding Level of Care Code 01762 Subseq Hosp Care Lvl 3 Diagnoses Hypoxia R09.02 Pneumonia J18.9 Laterality: unspecified laterality Lung location: unspecified part of lung Pneumonia type: due to unspecified organism SOLANGE (mycobacterium avium-intracellulare) A31.0 Hypothyroidism E03.9 Hypothyroidism type: acquired CKD (chronic kidney disease), stage III N18.3 Paranoid schizophrenia F20.0 CAD in [place] artery I25.10 Cavitary lesion of lung J98.4 (1) Hypothyroidism Hypothyroidism type: acquired Qualified Code(s): E03.9 - Hypothyroidism, unspecified (2) Pneumonia Laterality: unspecified laterality Lung location: unspecified part of lung Pneumonia type: due to unspecified organism Qualified Code(s): J18.9 - Pneumonia, unspecified organism
--- NOTE | 2020-01-16 13:55 | Pulmonary Consultation ---
Date of Consultation January 16, 2020 Assessment & Plan (1) Cavitary lesion of lung: No change on chest x-ray from prior admissions. Cavitation of lung goes back at least 2 years. Patient previously followed by Dr. Canada in the outpatient clinic Patient states that he likes Dr. Canada and would like to see him in follow-up on discharge. Patient with no leukocytosis Highest documented temperature here at the hospital is 37.8 Celsius Patient no respiratory distress Patient empirically started on levofloxacin and vancomycin Not sure that the patient needs antibiotics. If it is felt by the hospitalist team that he does I probably would choose another antibiotic other than levofloxacin since he just completed a course after his last admission. Procalcitonin is pending We will continue to treat supportively I did discuss his case with Dr. Omer who is in agreement that patient does not need prophylactic treatment on discharge. Due to the longevity of the fibrotic findings and the cavitary lesion, no need for prolonged antibiotics. Patient has no significant bronchospasm on exam and no acute findings. Would not recomm end steroid treatment at this time Consider discharge back to [facility] when the patient is stable. We would be glad to follow the patient in the outpatient clinic with Dr. Canada Thank you for including us in the care of this patient. We will sign off at this time. Please feel free to reconsult as needed. Supervising Physician Co-Signing Physician Notes Patient seen and examined. EMR reviewed and images independently reviewed. Discussed with FARHAN ladd. Agree with his assessment and plan as noted. Patient has known fibrotic lung disease. It is unclear who he follows up with in the outpatient setting however this is been present for quite some time and likely is not being treated due to his underlying psychiatric comorbidities. I believe this is appropriate. The pattern is not entirely classic for a UIP pathologic diagnosis and it is unclear if he has had an underlying work-up pe rformed in the past but would not recommend doing it at this point time given his advanced fibrotic lung disease and again underlying medical comorbidities. He does present with what appears to be an acute pneumonia and exacerbation of his bronchiectasis. He is currently receiving Levaquin. Bronc wash from August 2018 grew Mycobacterium avium complex. He has also grown MSSA from bronch washing. Repeat cultures are pending. Agree with Levaquin for now. If staph aureus is isolated, may need to transition to linazolid which may be complicated by use of his antipsychotic medications. It does not appear that he is ever been treated for nontuberculous mycobacterial infection and one could certainly make a case for treatment given his advanced fibrotic disease. This would likely require 12 to 18 months of therapy with rifampin, ethambutol, and clarithromycin. I would not initiate th erapy in the acute setting and would treat for underlying other bacterial infections before considering treating his NTM infection. He should follow-up with his outpatient senior instructor to discuss long-term therapy. The patient appears stable currently and is not on oxygen. If he remains afebrile with an appropriate clinical response, consideration for early dismissal from the hospital and outpatient pulmonary follow-up with his outpatient pulmonary team and with repeat chest x-ray may be appropriate. History of Present Illness Attending Physician: Kirill Solis MD History of Present Illness Attending: Dr. Omer Is a 69-year-old patient that has schizophrenia the lives in a fci at [facility]. Patient was admitted for hypoxia on 01/15/2020. Patient with previous history of cavitary lesion going back to 2018 and followed in the outpatient clinic. Patient was most recently admitted with shortness of breath from 12/31/2019 to 01/04/2020. He was treated that time for community-acquired pneumonia as well as heart failure and treated with antibiotics and diuresis. On admission, patient's T-max was 37.8. He was also hypoxic at 87% on 2 L via nasal cannula. Due to the chest x-ray that was completed on admission on 01/15/2020, we were consulted to offer opinion on cavitary lesions as well as chronic consolidation. In discussion with patient, he has no shortness of breath today. He reports his biggest problem has been constipation which has been leading to shortness of breath. Per the report of nursing he had a large bowel movement this morning and seemed to have some relief from his shortness of breath. Patient denies any chest pain or tightness. He is pleasant to talk with. He seems to be alert and oriented and can tell me where he lives and that he has caregivers at the house. He remembers coming to the emergency department but does not recall any specific shortness of breath. The patient currently denies any nausea or vomiting. He is not aware of any fever, sweats, rigors, chills. He has no abdominal or chest pain. He offers no acute complaints. Patient states that he used to smoke in the 1970s but quit smoking many years ago. He denies any ethanol abuse. He states he takes his medicines as prescribed and with the assistance of his care team. Allergies Allergy/AdvReac Type Severity Reaction Status Date / Time diltiazem Allergy Intermediate rash and Verified 01/15/20 11:57 edema fentanyl AdvReac Confusion Verified 01/15/20 11:57 Home Medications Home Medications Medication Instructions Recorded Confirmed Type acetaminophen 500 mg PO QID PRN MDD 1999 MG/24 08/30/18 01/15/20 History HOURS cholecalciferol (vitamin D3) 2,000 unit PO DAILY@1400 08/30/18 01/15/20 History [Vitamin D3] clozapine [Clozaril] 300 mg PO HS@209908/30/18 01/15/20 History divalproex [Depakote] 125 mg PO BID 08/30/18 01/15/20 History divalproex [Depakote] 250 mg PO BID 08/30/18 01/15/20 History cyanocobalamin (vitamin B-12) 1,000 mcg PO 2XWK 07/25/19 01/15/20 History 1,000 mcg capsule Asmanex Twisthaler 220 mcg INHALATION DAILY@209908/01/19 01/15/20 History Oxygen Home 08/01/19 01/10/20 History aspirin 81 mg PO HS@209908/01/19 01/15/20 History famotidine 20 mg tablet 20 mg PO BID #30 tab 08/27/19 01/15/20 Rx ferrous sulfate 325 mg (65 mg 325 mg PO BID #100 tab 12/07/19 01/15/20 Rx iron) tablet,delayed release hydrocodone 7.5 mg-acetaminophen 1 tab PO TID #90 tab 12/21/19 01/15/20 Rx 325 mg tablet levothyroxine 25 mcg PO DAILY@1400 12/31/19 01/15/20 History metoprolol succinate 50 mg PO DAILY@0800 12/31/19 01/15/20 History sennosides [Senokot] 17.2 mg PO DAILY@0800 12/31/19 01/15/20 History tamsulosin 0.4 mg PO HS@199912/31/19 01/15/20 History finasteride 5 mg tablet 5 mg PO HS@2099 #90 tab 01/02/20 01/15/20 Rx furosemide 40 mg PO DAILY 30 Days #30 tab 01/04/20 01/15/20 Rx ipratropium 0.5 mg-albuterol 3 mg 3 ml INH TID ml 01/07/20 01/15/20 History (2.5 mg base)/3 mL nebulization soln magnesium hydroxide 400 mg/5 mL 5 ml PO DAILY PRN 01/07/20 01/15/20 History oral suspension polyethylene glycol 3350 17 gram 17 gm PO DAILY PRN 01/07/20 01/15/20 History oral powder packet sodium chloride 0.65 % nasal spray 2 sprays INTNAS TID PRN ml 01/07/20 01/15/20 History aerosol codeine 6.3 mg-guaifenesin 100 8 ml PO Q6H PRN 01/10/20 01/15/20 History mg/5 mL oral liquid Patient History Medical History (Updated 01/16/20 @ 13:50 by Faustino Ladd PA-C) Abnormal chest CT Acute hyponatremia Acute respiratory failure with hypoxia Anemia Aspiration pneumonia Asymptomatic hyperuricemia Avascular necrosis Benign prostatic hyperplasia with urinary obstruction BPH (benign prostatic hyperplasia) (Chronic) CAD in [place] artery (Chronic) Cavitary lesion of lung Chronic diastolic CHF (congestive heart failure) Chronic kidney disease (CKD), stage III (moderate) Congestive heart failure (CHF) (Chronic) Discharge planning issues Dislocation of shoulder DVT prophylaxis Dysphagia Edema GERD (gastroesophageal reflux disease) Hemorrhoids Hiatal hernia Hyperammonemia (Resolved) Hypercalcemia Hypercholesterolemia Hyperglobulinemia Hyperkalemia, diminished renal excretion Hypertension (Chronic) Hyponatremia (Resolved) Inappropriate ADH syndrome Joint pain, hip Left ventricular hypertrophy Leukocytosis 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 Metabolic encephalopathy Mycobacterium avium infection Obesity Obstructive sleep apnea Paranoid schizophrenia Pneumonia Prostatitis Seborrheic keratosis Seizure disorder Sepsis Tinea corporis Vitamin D deficiency Surgical History Encounter for drug screening History of breast surgery History of cardiac cath History of cataract surgery History of chest x-ray History of colonoscopy Family History Father Prostate cancer Mother Lung cancer Denies family history of Breast cancer Colorectal cancer Social History Preferred Language: [place] Communication Ability: Impaired Visual Impairment: No Limitations Hearing Ability: Normal Lard Renderer Required: No Beliefs That Will Affect Care: None marital status: Single Current Living Situation: Personal Care Facility Current Living Situation Comment: lives [place] current occupational status: retired Feels Safe at Home: Yes Smoking Status: Never smoker Tobacco Type: cigarettes ; Second Hand Exposure: No ; Hx Alcohol Use: No Hx Substance Use: Yes substance use type: prescription drug Substance Use Type Other:: hydrocodone Review of Systems Review of Systems: All systems reviewed & are unremarkable except as noted in HPI & below Physical Exam Physical Exam: GENERAL : No acute distress EYES: No icterus, gaze conjugate NOSE: No evidence of epistaxis MOUTH: No lesions or candidiasis NECK: Supple LUNGS: Lungs are remarkably clear. No rales or rhonchi. No appreciation of bronchospasm. HEART: Regular, rate controlled ABDOMEN: Soft, NT, ND, BS Present EXTREMITIES: No LE edema, pedal pulses intact NEURO: A&OX3 Results & Data ([facility]) Vital Signs (Past 12 Hours) Vital Signs Temp Pulse Pulse Resp BP Pulse Ox 01/16/20 11:36 36.7 C 91 H 20 127/74 90 01/16/20 07:32 90 01/16/20 07:11 88 20 98 01/16/20 07:10 36.5 C 87 20 130/75 98 01/16/20 03:37 37.1 C 88 18 114/65 90 Laboratory Results 01/16/20 07:25 01/16/20 07:25 Diagnostic Findings XR chest 1V portable CLINICAL HISTORY: Dyspnea dyspnea COMPARISON STUDY: 12/31/2019 FINDINGS: Unchanged cystic process right pulmonary apex. This cavitation with surrounding infiltrative change is unaltered. Slight bronchovascular marking prominence throughout both hemithoraces considered unchanged. IMPRESSION: 1. Unchanged consolidative process right upper lung with evidence for central cavitation. 2. Bronchovascular prominence considered chronic and also unchanged. Electronically signed by: Jose Miguel Corrigan M.D. 01/15/2020 11:10 AM PG Care Time/CCT Total # of Minutes Spent Total Time Spent with Patient: Total time spent is greater than 50% in coordination of care (as documented) at patient's floor/unit and/or counseling patient: 30 minutes Coding Level of Care Code 76151 Inpt Consult Level 4 Diagnoses Cavitary lesion of lung J98.4
[2020-01-16] MEDS: CHOLECALCIFEROL 1,000 UNITS 25 MCG TAB PO SCH (14:14)
[2020-01-16] MEDS: LEVOTHYROXINE SODIUM 25 MCG TABLET PO SCH (14:14)
[2020-01-16] MEDS ORDERED: FUROSEMIDE 40 MG in SYRINGE 0 ML IV ONE (19:30)
[2020-01-16] MEDS: FLUTICASONE FUROATE 100MCG 14 PUFFS/INHALER INH SCH (20:05)
[2020-01-16] MEDS: cloZAPine 100 MG TAB PO SCH (20:06)
[2020-01-16] MEDS: ASPIRIN 81 MG ECTAB PO SCH (20:08)
[2020-01-16] MEDS: TAMSULOSIN HCL 0.4 MG CAP PO SCH (20:09)
[2020-01-16] MEDS: FINASTERIDE 5 MG TAB PO SCH (20:09)
[2020-01-17] MEDS ORDERED: VANCOMYCIN TROUGH ONE (05:30)
[2020-01-17] MEDS: HEPARIN SOD 5,000 UNIT/0.5 ML VIAL SQ SCH ×2 (06:07→13:58)
[2020-01-17 07:03] LABS: BUN Creatinine Ratio 17.3 (10-20); Creatinine Clr Calc Pharmacy 61.1 ml/min; Est GFR (African American) 68.6; Est GFR (Non-African American) 59.2; Potassium 4.6 mmol/L (3.5-5.1)
[2020-01-17] MEDS: ALBUT/IPRATROP 3MG/0.5MG NEB 3 ML VIAL INH SCH ×2 (07:04→13:28)
[2020-01-17 07:06] VITALS: TEMP 97.7
[2020-01-17] MEDS: METOPROLOL SUCC 50MG EXT REL TAB PO SCH (07:55)
[2020-01-17] MEDS: FAMOTIDINE 20 MG TAB PO SCH (07:56)
[2020-01-17] MEDS: SENNA 8.6 MG TAB PO SCH (07:56)
[2020-01-17] MEDS: DIVALPROEX DELAY RELEASE 125 MG TABEC PO SCH (07:57)
[2020-01-17] MEDS: DIVALPROEX DELAY RELEASE 250 MG TABEC PO SCH (07:57)
[2020-01-17] MEDS: FERROUS SULFATE 325 MG TAB PO SCH (07:57)
[2020-01-17] MEDS ORDERED: FUROSEMIDE 40 MG in SYRINGE 0 ML IV SCH (09:00)
[2020-01-17] MEDS: ACETAMINOPHEN 500 MG TAB PO PRN (10:40)
[2020-01-17] MEDS: LEVOFLOXACIN/D5W 750 MG/150 ML BAG IV SCH (10:41)
--- NOTE | 2020-01-17 10:44 | Electrocardiogram Report ---
Test Reason : Blood Pressure : / mmHG Vent. Rate : 095 BPM Atrial Rate : 095 BPM P-R Int : 178 ms QRS Dur : 094 ms QT Int : 362 ms P-R-T Axes : 032 -21 030 degrees QTc Int : 454 ms Normal sinus rhythm Normal ECG When compared with ECG of 15-Jan-2020 10:40, No significant change Confirmed by New Lara ([id number]) on 01/17/2020 10:43:58 AM Referred By: REFERRED SELF Confirmed By:New Lara
[2020-01-17 11:16] VITALS: BP 150/78
[2020-01-17 13:30] VITALS: O2SAT 95
--- NOTE | 2020-01-17 13:51 | Discharge Summary ---
Date of Service January 17, 2020 Admission HPI Per Admitting Provider This is a 69-year-old male with past medical history of schizophrenia, chronic kidney disease, coronary artery disease, previous history of SOLANGE with a cavitary lesion who presents today complaining of worsening shortness of breath. Patient is a somewhat limited historian but he is accompanied by caregiver who is able to give some details. Patient has been admitted here with shortness of breath from . At the time he was treated for community-acquired pneumonia along with heart failure with diuresis. Caregiver tells me the patient was discharged instructions to use her 2 L nasal cannula around the clock rather than just nightly. However, they have been having insurance problems and have not been able to supply this time. Patient has a follow-up with his PCP on 01/09 and was apparently doing well at that time. The caregiver notes that since then, the patient has had worsening course. This is mostly secondary to shortness of breath along with dyspnea on exertion and poor exercise tolerance. They note that he is not always alert and tends to nod off easily. Patient has had no fevers but they have noticed chills with rigors, sometimes so severe that the patient has difficulty holding things. As he became more hypoxic, he was brought to the emergency room for further evaluation. Here in the ER, patient had a mild elevated temperature 37.8. He was found to be hypoxic at 87%, doing much better on 2 L nasal cannula. Also of note, patient was found to be 93 kg. I note that when he was discharged he was 87 kg. The caregiver tells me that he has been compliant with the Lasix as directed and actually has a cardiology appointment on 01/21. Admission Exam Per Admitting Provider Constitutional: cooperative and comfortable; no acute distress Neck: trachea midline, no thyromegaly Respiratory: normal respiratory effort Auscultation: + diminished lung sounds, + rhonchi and + wheezes (Faint and expiratory wheeze); no crackles and no rales Cardiovascular: Rate/Rhythm: regular rate and regular rhythm Heart Sounds: normal S1 and normal S2 Vessels: no JVD and no carotid bruit Extremities: + pedal edema (1+) Gastrointestinal (Abdomen): Inspection/Auscultation: abdomen normal to inspection Percussion/Palpation: abdomen soft; abdomen nontender, no guarding, abdomen not rigid and no hepatosplenomegaly Skin: no rashes, warm and dry Neurologic: PERRL, EOMI, accommodation nl, no face palsy, no dysarthria Principal Diagnosis Possible superimposed bacterial pneumonia Chronic fibrotic lung disease with SOLANGE and chronic bronchitis Discharge Exam Constitutional no acute distress Eyes + anicteric sclerae; normal pupil size Neck trachea midline Respiratory normal respiratory effort and + cough (thick yellow productive sputum) Auscultation: + diminished lung sounds (right upper lobe) and + rhonchi (b/l R > L); no crackles, no rales and no wheezes Cardiovascular Rate/Rhythm: regular rate and regular rhythm Heart Sounds: normal S1, normal S2 and + murmur (LLSB systolic) Vessels: no JVD Extremities: normal capillary refill and + pedal edema (trace b/l equal); no calf tenderness Gastrointestinal (Abdomen) Inspection/Auscultation: abdomen normal to inspection and normal bowel sounds Percussion/Palpation: abdomen soft; abdomen nontender, no guarding and abdomen not rigid Musculoskeletal no cyanosis or clubbing, extremities motor strength 5/5 Skin no rashes, warm and dry Neurologic moves all extremities and awake; not confused Psychiatric A+Ox3, euthymic affect Discharge Data Allergies Allergy/AdvReac Type Severity Reaction Status Date / Time diltiazem Allergy Intermediate rash and Verified 01/22/20 11:41 edema fentanyl AdvReac Confusion Verified 01/22/20 11:41 Consultations 01/15/20 11:57 ED Decision to Admit Stat 01/15/20 14:39 Consult Cardiology Routine 01/16/20 08:22 Consult Pulmonology Routine Hospital Course (1) Hypoxia: Mahesh Nunez is a 69 year old male admitted to [facility] from January 14 to 2019 due to shortness of breath with productive cough. These appear to be chronic issues related to his underlying chronic lung disease but given prior improvement with antibiotics during his last admission and difficulty interpreting chest XR with underlying lung disease; will cover for potentially superimposed bacterial pneumonia with Levaquin for total course of 10 days with follow up already arranged with his tap and die maker technician Dr Canada. 6 minute walk test with respiratory determined no need for O2 at rest or ambulation. He should continue to use the flutter valve to help with cough and to avoid bacterial pneumonia. (2) Pneumonia: (3) SOLANGE (mycobacterium avium-intracellulare): (4) Hypothyroidism: (5) CKD (chronic kidney disease), stage III: (6) Paranoid schizophrenia: (7) CAD in [place] artery: (8) Cavitary lesion of lung: Total Time Total Time Spent Total Time Spent (In Minutes): 35 Total Time Includes: Examination of the Patient, Discharge Planning and Medication Reconciliation Discharge Plan Discharge Items Patient Disposition: Personal [facility] Reason For Visit: SOB Discharge Diagnosis: Possible superimposed bacterial pneumonia Chronic fibrotic lung disease with SOLANGE and chronic bronchitis Activity: Resume your previous activity Non-emergency contact: [place] Supervisor Call non-emergency contact if: you have any medication questions and your symptoms worsen Follow-up/Referrals: Pro,Jong Mejia MD [Primary Care Provider] - Cody Chery Jr, MD, [facility] [Physician] - 01/23/20 9:00 am (Please, follow up at [facility] Pulmonology Office with Dr. Chery on TuesdayJanuary 22 at 9:00 am. *The office is located in [address] of [facility], next to [facility]. If you need to change this appointment, call the office at [phone]. IF DR. CHERY FEELS THAT YOU WOULD BENEFIT FROM THE CHF CLINIC, HE WILL ARRANGE THE APPOINTMENT FOR YOU DURING THIS OFFICE VISIT.) Tremiane Canada DO [Physician] - 01/22/20 11:00 am (Please, follow up at [facility] Pulmonology Office with Dr. Canada on TuesdayJanuary 21 at 11:00 am. *The office is located in [address] of [facility], located next to this [facility]. If you need to change this appointment, call the office at [phone].) Diet: Heart Healthy Addtl Attending Provider Instructions: You were admitted to [facility] from January 14 to 2019 due to shortness of breath with productive cough. These appear to be chronic issues related to your chronic lung disease but given prior improvement with antibiotics during your last admission and difficulty interpreting your chest XR and exam due to your chronic lung disease recommend covering for bacterial pneumonia at this time with Levaquin for total course of 10 days with follow up already arranged with your tap and die maker technician Dr Canada. 6 minute walk test with respiratory determined no need for O2 at rest or ambulation. Please continue to use the flutter valve to help cough up your sputum to avoid bacterial pneumonia. Kind regards, Dr Kirill Solis Pending Studies at Discharge: Yes (Final sputum and blood culture results) Stand-Alone Forms: My [facility], Smoking Cessation Skilled Items Patient informed of condition?: Yes DNR: No Discharge Level of Care: Other Communicable Disease: No Discharge Prognosis: Stable Lines: None Urinary Catheter: No Medications and DC Order Prescriptions: New levofloxacin [Levaquin] 750 mg tablet 750 mg PO DAILY 7 Days Qty: 7 RF: 0 Continued hydrocodone-acetaminophen 7.5-325 mg tablet 1 tab PO TID Qty: 90 RF: 0 finasteride 5 mg tablet 5 mg PO HS@2100 Qty: 90 RF: 3 magnesium hydroxide [Milk of Magnesia] 400 mg/5 mL suspension 5 ml PO DAILY PRN (Reason: constipation) RF: 0 polyethylene glycol 3350 [Miralax] 17 gram powder in packet 17 gm PO DAILY PRN (Reason: constipation) RF: 0 sodium chloride [Saline Nasal Mist] 0.65 % aerosol,spray 2 sprays INTNAS TID PRN (Reason: dry nose) RF: 0 ipratropium-albuterol 0.5 mg-3 mg(2.5 mg base)/3 mL solution for nebulization 3 ml INH TID RF: 0 famotidine 20 mg tablet 20 mg PO BID Qty: 30 RF: 5 cyanocobalamin (vitamin B-12) 1,000 mcg capsule 1,000 mcg PO 2XWK RF: 0 codeine-guaifenesin 6.3-100 mg/5 mL liquid 8 ml PO Q6H PRN (Reason: Cough) RF: 0 divalproex [Depakote] 250 mg Tablet,Delayed Release (Dr/Ec) 250 mg PO BID RF: 0 clozapine [Clozaril] 100 mg Tablet 300 mg PO HS@2100 RF: 0 divalproex [Depakote] 125 mg Tablet,Delayed Release (Dr/Ec) 125 mg PO BID RF: 0 cholecalciferol (vitamin D3) [Vitamin D3] 2,000 unit Capsule 2,000 unit PO DAILY@1400 RF: 0 acetaminophen 500 mg Capsule 500 mg PO QID MDD 2000 MG/24 HOURS PRN (Reason: Pain) RF: 0 aspirin 81 mg tablet,delayed release (DR/EC) 81 mg PO HS@2100 RF: 0 Asmanex Twisthaler 220 mcg/ actuation (30) aerosol powdr breath activated 220 mcg inhalation DAILY@2100 RF: 0 (DME) Oxygen Home Liters Per Minute RF: 0 sennosides [Senokot] 8.6 mg tablet 17.2 mg PO DAILY@0800 RF: 0 metoprolol succinate 50 mg tablet extended release 24 hr 50 mg PO DAILY@0800 RF: 0 levothyroxine 25 mcg tablet 25 mcg PO DAILY@1400 RF: 0 tamsulosin 0.4 mg capsule 0.4 mg PO HS@2000 RF: 0 furosemide 40 mg tablet 40 mg PO DAILY 30 Days Qty: 30 RF: 1 No Action (DME) Portable Oxygen Misc See Rx Instructions .ROUTE .MEDSUPPLY Qty: 1 RF: 0 atorvastatin 40 mg tablet 40 mg PO DAILY Qty: 90 RF: 3 Discharge Orders: Discharge Order (Routine); Ordered 01/17/20 Ordered By: Kirill Solis Admission Data Admit Date/Time: 01/15/20 13:01 Attending Provider: Kirill Solis Admit Provider: Toribio Andrade Primary Care Provider: Jong Weir Other Providers: Toribio Andrade ; Júnior Lunsford ; Joaquín Omer Other Interventions: Discharge Summary Assessment (RN) Last Done: 01/17/20 14:20 DC Date/Time DO NOT enter until pt leaves facility: 01/17/20 16:10 Coding Level of Care Code D/C Day Management >30 mins Diagnoses Hypoxia R09.02 Pneumonia J18.9 Laterality: unspecified laterality Lung location: unspecified part of lung Pneumonia type: due to unspecified organism SOLANGE (mycobacterium avium-intracellulare) A31.0 Hypothyroidism E03.9 Hypothyroidism type: acquired CKD (chronic kidney disease), stage III N18.3 Paranoid schizophrenia F20.0 CAD in [place] artery I25.10 Cavitary lesion of lung J98.4
[2020-01-17] MEDS: CHOLECALCIFEROL 1,000 UNITS 25 MCG TAB PO SCH (13:58)
[2020-01-17] MEDS: LEVOTHYROXINE SODIUM 25 MCG TABLET PO SCH (13:58)
[2020-01-17 14:36] VITALS: PULSE 68
[2020-01-18] MEDS ORDERED: FUROSEMIDE 40 MG TAB PO SCH (09:00)
[2020-01-18] MEDS ORDERED: CYANOCOBALAMIN 500 MCG TABLET (VITAMIN B-12) PO SCH (21:00)
== END 2020-01-17 16:10 | disposition home or self-care (01) | DRG 196 ==
LOC: ED 10:09 → 2W 13:01 → SUATTDRO 13:01 → 2W 14:04

== ENCOUNTER 2020-12-10 11:16 | Inpatient (IN) ==
[2020-12-10 12:15] LABS: Basophils # (auto) 0.02 K/uL (0-0.2); Basophils % (auto) 0.1 %; Hematocrit (blood only) 29.8 % (42-52); Hemoglobin 9.2 g/dL (14.0-18.0); Immature Granulocytes % (auto) 0.9 %; Lymphocytes # (auto) 1.15 K/uL (1.2-3.4); Lymphocytes % (auto) 4.9 %; Mean Corpuscular Hemoglobin 28.6 pg (25-34); Mean Corpuscular Hgb Conc 30.9 g/dL (32-36); Mean Corpuscular Volume 92.5 fL (80-100); Monocytes # (auto) 2.49 K/uL (0.11-0.59); Monocytes % (auto) 10.6 %; Neutrophils # (auto) 19.65 K/uL (1.4-6.5); Neutrophils % (auto) 83.5 %; Platelet Count 174 K/uL (130-400); RDW Coefficient of Variation 15.1 % (11.5-14.5); RDW Standard Deviation 51.5 fL (36.4-46.3); Red Blood Count 3.22 M/uL (4.7-6.1); White Blood Count 23.51 K/uL (4.8-10.8)
[2020-12-10] MEDS ORDERED: CEFEPIME 2,000 MG/20 ML VIAL IV STA (12:38)
[2020-12-10 12:39] LABS: Albumin Level 2.9 gm/dl (3.4-5.0); BUN Creatinine Ratio 25.4 (10-20); Calcium 9.3 mg/dl (8.5-10.1); Creatinine Clr Calc Pharmacy 34.6 ml/min; Est GFR (Non-African American) 34.6; Potassium 3.4 mmol/L (3.5-5.1)
[2020-12-10 12:41] LABS: Albumin Globulin Ratio 0.5 (0.9-2); Bilirubin,Total 0.6 mg/dl (0.2-1); Globulin 5.5 gm/dl (2.5-4.0); Total Protein 8.4 gm/dl (6.4-8.2)
[2020-12-10] MEDS ORDERED: SODIUM CHLORIDE 0.9% 1000ML 1,000 ML IV SCH ×2 (12:45→20:00)
--- NOTE | 2020-12-10 12:47 | Emergency Department Note ---
History of Present Illness General Chief complaint: Urinary Symptoms Stated complaint: FEVER 101.3CONFUSED LETHARGIC SHAKING PAIN-URINATE Time Seen by Provider: 12/10/20 12:18 Source: patient Mode of arrival: wheelchair Limitations: no limitations History of Present Illness Provider complaint: Fever and flulike symptoms Maximum Pain Intensity: 6 The patient presents from [facility] [employer] with a briefcase sewer. The briefcase sewer provides most of the history although the patient provides a little history. He is somewhat of a poor historian and lethargic according to the intensive care medicine specialist. The patient has had flu symptoms since yesterday. He had a fever of 101.3 this morning. He seems more disoriented than usual. He was shivering this morning. He also reported pain with urination and some body aches. The briefcase sewer also states that he has had a cough in his knees. He did not cough or sneeze during my exam. All the symptoms started yesterday. He normally gets around walking but uses an electric wheelchair frequently because of some chronic pain issues. He does have history of frequent UTIs. He has some generalized weakness as well. Allergies Allergy/AdvReac Type Severity Reaction Status Date / Time diltiazem Allergy Intermediate rash and Verified 12/10/20 14:28 edema fentanyl AdvReac Severe Confusion Verified 12/10/20 14:28 Past Med/Surg History Medical History Aspiration pneumonia (08/2018) 2018 Avascular necrosis BPH (benign prostatic hyperplasia) CAD in [place] artery Per [facility] cardio, "presumed CAD" based on coronary artery calcifications noted on imaging. Cavitary lesion of lung Chronic hypoxemic respiratory failure Chronic kidney disease (CKD), stage III (moderate) Dysphagia Edema GERD (gastroesophageal reflux disease) Hiatal hernia Hypercholesterolemia Hypertension Hypothyroidism Inappropriate ADH syndrome Interstitial lung disease On 2L O2 continuous via NC. Left ventricular hypertrophy Mild concentric LVH Lethargic Leukocytosis 2019 Nontuberculous mycobacterial disease of lung Following with [facility] pulmonary ([place]) Obstructive sleep apnea 2Lpm cont. On home oxygen therapy 2lpm continuous Paranoid schizophrenia Prostatitis not currently Seizure disorder none since medication was started. Patient's aid from [employer] reports the pt has not had one for as long as he has worked there (>4 years). Sepsis ~2018. Surgical History History of breast surgery ?? possible History unclear History of bronchoscopy History of cardiac cath >than 4 years ago. no stents. History of cataract surgery bilateral History of colonoscopy Family History Father Prostate cancer Mother Lung cancer Denies family history of Breast cancer Colorectal cancer Social History Smoking Status: Never smoker Age Quit Using Tobacco: 38; Second Hand Exposure: No; Hx Alcohol Use: No Hx Substance Use: No Preferred Language: Qatari Communication Ability: Effective Visual Impairment: No Limitations Hearing Ability: Normal Obgyn Nurse Required: No Beliefs That Will Affect Care: None marital status: Single Current Living Situation: Personal Care Facility Current Living Situation Comment: lives [employer] current occupational status: retired How many Children do You have: 0 Feels Safe at Home: Yes Seatbelt Use: always Assistive Devices: Denture - Upper, Denture - Lower, Glasses, Oxygen - Continuous, Walker and Wheelchair Review of Systems A total of 10 systems reviewed and were otherwise negative Physical Exam Vital Signs Vital Signs - 24 hr 12/10/20 11:19 12/10/20 12:04 12/10/20 12:10 Temperature 37.4 C Temperature Source Temporal Artery Scan Pulse Rate 112 H 107 H 106 H Pulse Rate from SpO2 Sensor 107 H 106 H Respiratory Rate 20 28 H 28 H Respiratory Effort / Characteristics Non-Labored Respiratory Depth Normal Blood Pressure 121/83 Blood Pressure Mean 95 Pulse Oximetry 97 98 98 Oxygen Delivery Method Nasal Cannula Oxygen Flow Rate 2 Sepsis Recent Fever Within 48 Hours No Sepsis New/Unexplained Change in Mental Status No Sepsis Action Taken by Nursing No Action Required 12/10/20 12:20 12/10/20 12:30 12/10/20 12:40 Temperature Temperature Source Pulse Rate 105 H 108 H 105 H Pulse Rate from SpO2 Sensor 105 H 108 H 105 H Respiratory Rate 27 H 26 H 25 H Respiratory Effort / Characteristics Respiratory Depth Blood Pressure 83/50 L Blood Pressure Mean 61 Pulse Oximetry 98 98 98 Oxygen Delivery Method Oxygen Flow Rate Sepsis Recent Fever Within 48 Hours Sepsis New/Unexplained Change in Mental Status Sepsis Action Taken by Nursing 12/10/20 12:50 12/10/20 13:00 12/10/20 13:01 Temperature Temperature Source Pulse Rate 102 H 102 H 101 H Pulse Rate from SpO2 Sensor 103 H 101 H 101 H Respiratory Rate 28 H 25 H 25 H Respiratory Effort / Characteristics Respiratory Depth Blood Pressure 82/42 L Blood Pressure Mean 55 Pulse Oximetry 98 95 95 Oxygen Delivery Method Oxygen Flow Rate Sepsis Recent Fever Within 48 Hours Sepsis New/Unexplained Change in Mental Status Sepsis Action Taken by Nursing 12/10/20 13:03 12/10/20 13:07 12/10/20 13:10 Temperature Temperature Source Pulse Rate 100 H 101 H 102 H Pulse Rate from SpO2 Sensor 101 H 99 H Respiratory Rate 25 H 21 27 H Respiratory Effort / Characteristics Respiratory Depth Blood Pressure 102/56 L 102/56 L Blood Pressure Mean 71 71 Pulse Oximetry 95 99 Oxygen Delivery Method Oxygen Flow Rate Sepsis Recent Fever Within 48 Hours Sepsis New/Unexplained Change in Mental Status Sepsis Action Taken by Nursing 12/10/20 13:15 12/10/20 13:20 12/10/20 13:30 Temperature Temperature Source Pulse Rate 104 H 104 H 106 H Pulse Rate from SpO2 Sensor 104 H 104 H Respiratory Rate 21 21 22 Respiratory Effort / Characteristics Respiratory Depth Blood Pressure 98/52 L 88/51 L Blood Pressure Mean 67 63 Pulse Oximetry 99 98 Oxygen Delivery Method Oxygen Flow Rate Sepsis Recent Fever Within 48 Hours Sepsis New/Unexplained Change in Mental Status Sepsis Action Taken by Nursing 12/10/20 13:40 12/10/20 13:45 12/10/20 13:50 Temperature Temperature Source Pulse Rate 102 H 101 H 100 H Pulse Rate from SpO2 Sensor 102 H 101 H 101 H Respiratory Rate 20 20 20 Respiratory Effort / Characteristics Respiratory Depth Blood Pressure 82/43 L Blood Pressure Mean 56 Pulse Oximetry 92 92 91 Oxygen Delivery Method Oxygen Flow Rate Sepsis Recent Fever Within 48 Hours Sepsis New/Unexplained Change in Mental Status Sepsis Action Taken by Nursing 12/10/20 14:00 12/10/20 14:10 12/10/20 14:15 Temperature Temperature Source Pulse Rate 103 H 100 H 101 H Pulse Rate from SpO2 Sensor 103 H 101 H 101 H Respiratory Rate 21 21 20 Respiratory Effort / Characteristics Respiratory Depth Blood Pressure 85/46 L 81/43 L Blood Pressure Mean 59 55 Pulse Oximetry 92 100 100 Oxygen Delivery Method Oxygen Flow Rate Sepsis Recent Fever Within 48 Hours Sepsis New/Unexplained Change in Mental Status Sepsis Action Taken by Nursing 12/10/20 14:20 12/10/20 14:30 Temperature Temperature Source Pulse Rate 100 H 102 H Pulse Rate from SpO2 Sensor 101 H 107 H Respiratory Rate 21 17 Respiratory Effort / Characteristics Respiratory Depth Blood Pressure 99/51 L Blood Pressure Mean 67 Pulse Oximetry 100 100 Oxygen Delivery Method Nasal Cannula Oxygen Flow Rate 2 Sepsis Recent Fever Within 48 Hours Sepsis New/Unexplained Change in Mental Status Sepsis Action Taken by Nursing CONSTITUTIONAL/VITAL SIGNS: Reviewed / noted above. GENERAL: Non-toxic in appearance. INTEGUMENTARY: Warm, dry, and [place]. HEAD: Normocephalic. EYES: without scleral icterus or trauma. ENT/OROPHARYNX: clear and moist. LYMPHADENOPATHY/NECK: Is supple without lymphadenopathy or meningismus. RESPIRATORY: Lungs clear and equal. CARDIOVASCULAR: Regular rate and rhythm. Systolic ejection murmur. GI/ABDOMEN: Soft and nontender. No organomegaly or pulsatile mass. No rebound or guarding. Normal bowel sounds. EXTREMITIES: Warm and well perfused. BACK: No CVA tenderness. NEUROLOGICAL: Intact without focal deficits. Generalized weakness. PSYCHIATRIC: normal affect. MUSCULOSKELETAL: Normally developed with average to poor chronic muscle tone. TRIAGE NURSING DOCUMENTATION REVIEWED. Course Administered Medications Discontinued Medications Sodium Chloride (Nss 1000ml) 1,000 mls @ 999 mls/hr IV .Q1H1M GUERO Stop: 12/10/20 13:45 Last Infusion: 12/10/20 14:31 Dose: 0 mls/hr Documented by: [id number] Admin: 12/10/20 13:05 Dose: 999 mls/hr Documented by: [id number] Cefepime HCl (Maxipime) 2,000 mg in 20 mls @ 5 mls/min IV NOW STA; Protocol Stop: 12/10/20 12:41 Last Admin: 12/10/20 13:05 Dose: 5 mls/min Documented by: [id number] Critical Care Time Critical Care Time: Yes Total Critical Care Time: 30 I have personally spent 30 minutes of critical care time in the direct management of this patient. This includes bedside care, interpretation of diagnostic studies, and testing, discussion with consultants, patient, and family members, and other required patient management activities. This 30 minutes is in excess of all separately billable procedures. Medical Decision Making Differential Diagnosis Differential includes acute coronary syndrome, myocardial infarction, CVA, TIA, anemia, infection, pneumonia, UTI, pyelonephritis, poor nutrition, dehydration, electrolyte disturbance,hypoglycemia. Medical Records Attestation: I reviewed the patient's medical records. Home Medications Current Medication List: was personally reviewed by me Laboratory Data Attestation: I reviewed the patient's lab results. Result diagrams: 12/10/20 12:00 12/10/20 12:00 Lab Results 12/10/20 12/10/20 12/10/20 Range/Units 12:00 12:00 12:00 WBC 23.51 H (4.8-10.8) K/uL RBC 3.22 L (4.7-6.1) M/uL Hgb 9.2 L (14.0-18.0) g/dL Hct 29.8 L (42-52) % MCV 92.5 (80-100) fL MCH 28.6 (25-34) pg MCHC 30.9 L (32-36) g/dL RDW Std Deviation 51.5 H (36.4-46.3) fL RDW Coeff of [place] 15.1 H (11.5-14.5) % Plt Count 174 (130-400) K/uL MPV 10.0 (7.4-10.4) fL Immature Gran % (Auto) 0.9 % Neut % (Auto) 83.5 % Lymph % (Auto) 4.9 % Page % (Auto) 10.6 % Eos % (Auto) 0.0 % Baso % (Auto) 0.1 % Neut # (Auto) 19.65 H (1.4-6.5) K/uL Lymph # (Auto) 1.15 L (1.2-3.4) K/uL Page # (Auto) 2.49 H (0.11-0.59) K/uL Eos # (Auto) 0.00 (0-0.5) K/uL Baso # (Auto) 0.02 (0-0.2) K/uL Immature Gran # (Auto) 0.20 H (0.00-0.02) K/uL PT 10.9 (9.0-12.0) Seconds INR 1.1 (0.9-1.1) APTT 36.4 H (21.0-31.0) Seconds PTT Ratio 1.4 Sodium 143 (136-145) mmol/L Potassium 3.4 L (3.5-5.1) mmol/L Chloride 111 H (98-107) mmol/L Carbon Dioxide 25 (21-32) mmol/L Anion Gap 7.0 (3-11) BUN 49 H (7-18) mg/dl Creatinine 1.94 H (0.6-1.4) mg/dl Est Cr Clr Drug Dosing 34.6 ml/min Est GFR ( Amer) 40.0 Est GFR (Non-Af Amer) 34.6 BUN/Creatinine Ratio 25.4 H (10-20) Glucose 108 H (70-99) mg/dl Lactate (0.4-2.0) mmol/L Calcium 9.3 (8.5-10.1) mg/dl Magnesium 2.1 (1.8-2.4) mg/dl Total Bilirubin 0.6 (0.2-1) mg/dl AST 13 L (15-37) U/L ALT 12 (12-78) U/L Alkaline Phosphatase 78 (45-117) U/L Troponin I 0.017 (0-0.045) ng/ml Total Protein 8.4 H (6.4-8.2) gm/dl Albumin 2.9 L (3.4-5.0) gm/dl Globulin 5.5 H (2.5-4.0) gm/dl Albumin/Globulin Ratio 0.5 L (0.9-2) Procalcitonin (0-0.5) ng/ml Urine Color Urine Appearance (Clear) Urine pH (4.5-7.5) Ur Specific [place] (1.000-1.030) Urine Protein (Negative) Urine Glucose (UA) (Negative) Urine Ketones (Negative) Urine Blood (Negative) Urine Nitrite (Negative) Urine Bilirubin (Negative) Urine Urobilinogen (Negative) Ur Leukocyte Esterase (Negative) Urine RBC (0-4) /hpf Urine WBC (0-5) /hpf Ur Epithelial Cells (0-5) /lpf Urine Bacteria (Negative) COVID-19 Eval Order SARS-CoV-2, RNA, NAAT (NEGATIVE) 12/10/20 12/10/20 12/10/20 Range/Units 12:00 12:59 13:07 WBC (4.8-10.8) K/uL RBC (4.7-6.1) M/uL Hgb (14.0-18.0) g/dL Hct (42-52) % MCV (80-100) fL MCH (25-34) pg MCHC (32-36) g/dL RDW Std Deviation (36.4-46.3) fL RDW Coeff of Nakia (11.5-14.5) % Plt Count (130-400) K/uL MPV (7.4-10.4) fL Immature Gran % (Auto) % Neut % (Auto) % Lymph % (Auto) % Page % (Auto) % Eos % (Auto) % Baso % (Auto) % Neut # (Auto) (1.4-6.5) K/uL Lymph # (Auto) (1.2-3.4) K/uL Page # (Auto) (0.11-0.59) K/uL Eos # (Auto) (0-0.5) K/uL Baso # (Auto) (0-0.2) K/uL Immature Gran # (Auto) (0.00-0.02) K/uL PT (9.0-12.0) Seconds INR (0.9-1.1) APTT (21.0-31.0) Seconds PTT Ratio Sodium (136-145) mmol/L Potassium (3.5-5.1) mmol/L Chloride (98-107) mmol/L Carbon Dioxide (21-32) mmol/L Anion Gap (3-11) BUN (7-18) mg/dl Creatinine (0.6-1.4) mg/dl Est Cr Clr Drug Dosing ml/min Est GFR ( Amer) Est GFR (Non-Af Amer) BUN/Creatinine Ratio (10-20) Glucose (70-99) mg/dl Lactate 1.9 (0.4-2.0) mmol/L Calcium (8.5-10.1) mg/dl Magnesium (1.8-2.4) mg/dl Total Bilirubin (0.2-1) mg/dl AST (15-37) U/L ALT (12-78) U/L Alkaline Phosphatase (45-117) U/L Troponin I (0-0.045) ng/ml Total Protein (6.4-8.2) gm/dl Albumin (3.4-5.0) gm/dl Globulin (2.5-4.0) gm/dl Albumin/Globulin Ratio (0.9-2) Procalcitonin 0.50 (0-0.5) ng/ml Urine Color Urine Appearance (Clear) Urine pH (4.5-7.5) Ur Specific [place] (1.000-1.030) Urine Protein (Negative) Urine Glucose (UA) (Negative) Urine Ketones (Negative) Urine Blood (Negative) Urine Nitrite (Negative) Urine Bilirubin (Negative) Urine Urobilinogen (Negative) Ur Leukocyte Esterase (Negative) Urine RBC (0-4) /hpf Urine WBC (0-5) /hpf Ur Epithelial Cells (0-5) /lpf Urine Bacteria (Negative) COVID[facility]19 [email or web address] SARS-[facility]-2, RNA, NAAT (NEGATIVE) 12/10/20 12/10/20 Range/Units 13:07 13:30 WBC (4.8-10.8) K/uL RBC (4.7-6.1) M/uL Hgb (14.0-18.0) g/dL Hct (42-52) % MCV (80-100) fL MCH (25-34) pg MCHC (32-36) g/dL RDW Std Deviation (36.4-46.3) fL RDW Coeff of Nakia (11.5-14.5) % Plt Count (130-400) K/uL MPV (7.4-10.4) fL Immature Gran % (Auto) % Neut % (Auto) % Lymph % (Auto) % Page % (Auto) % Eos % (Auto) % Baso % (Auto) % Neut # (Auto) (1.4-6.5) K/uL Lymph # (Auto) (1.2-3.4) K/uL Page # (Auto) (0.11-0.59) K/uL Eos # (Auto) (0-0.5) K/uL Baso # (Auto) (0-0.2) K/uL Immature Gran # (Auto) (0.00-0.02) K/uL PT (9.0-12.0) Seconds INR (0.9-1.1) APTT (21.0-31.0) Seconds PTT Ratio Sodium (136-145) mmol/L Potassium (3.5-5.1) mmol/L Chloride (98-107) mmol/L Carbon Dioxide (21-32) mmol/L Anion Gap (3-11) BUN (7-18) mg/dl Creatinine (0.6-1.4) mg/dl Est Cr Clr Drug Dosing ml/min Est GFR ( Amer) Est GFR (Non-Af Amer) BUN/Creatinine Ratio (10-20) Glucose (70-99) mg/dl Lactate (0.4-2.0) mmol/L Calcium (8.5-10.1) mg/dl Magnesium (1.8-2.4) mg/dl Total Bilirubin (0.2-1) mg/dl AST (15-37) U/L ALT (12-78) U/L Alkaline Phosphatase (45-117) U/L Troponin I (0-0.045) ng/ml Total Protein (6.4-8.2) gm/dl Albumin (3.4-5.0) gm/dl Globulin (2.5-4.0) gm/dl Albumin/Globulin Ratio (0.9-2) Procalcitonin (0-0.5) ng/ml Urine Color Dark Yellow Urine Appearance Cloudy A (Clear) Urine pH 5.0 (4.5-7.5) Ur Specific [place] 1.017 (1.000-1.030) Urine Protein 1+ H (Negative) Urine Glucose (UA) Negative (Negative) Urine Ketones Trace H (Negative) Urine Blood Trace H (Negative) Urine Nitrite Positive A (Negative) Urine Bilirubin 1+ H (Negative) Urine Urobilinogen Negative (Negative) Ur Leukocyte Esterase 3+ H (Negative) Urine RBC 0-4 (0-4) /hpf Urine WBC >30 H (0-5) /hpf Ur Epithelial Cells 5-10 H (0-5) /lpf Urine Bacteria 1+ H (Negative) COVID-19 Eval Order SARS-CoV-2, RNA, NAAT NEGATIVE (NEGATIVE) Imaging Data Radiologist's Impression: XR chest 1V portable HISTORY: SEPSIS COMPARISON: Chest 10/30/2020. FINDINGS: No pneumothorax. No pleural effusions. There are low lung volumes. The heart remains enlarged. Chronic interstitial thickening persists. There is also chronic fibrotic change with right pleural thickening and bronchiectasis within the right lung apex. No new focal lung consolidations. No evidence for pulmonary edema. Degenerative changes again noted within the shoulders. A few punctate scattered metallic foreign bodies within the left side of the chest suggesting shrapnel. There is an old, healed clavicle fracture. IMPRESSION: Chronic changes within the chest as described above. No acute process iden tified. ECG Data Attestation: I personally reviewed and interpreted this ECG as follows: Indication: + weakness Rate (beats per minute): 113 Rhythm: + sinus tachycardia ECG Intervals/blocks: + Right Bundle branch block and + Normal QT-c ECG Findings: no PVCs Comparison ECG Date: from (Right bundle branch block is new compared to 10/30/2020) MDM Narrative Patient presents with some lethargy, fever this morning and some mild respiratory complaints with a history of UTIs. The patient's symptoms started yesterday. Details above. His white count is 23.5. His BUN is 49 creatinine is 1.94. Baseline creatinine is 1.14 the patient's chest x-ray did not show any acute findings. EKG showed a sinus rhythm without ischemic changes. Covid test was negative. Urine shows infection. Previous urine culture shows cefepime is sensitive. The patient was treated with IV fluids. He was given 30 cc/kg. He was also given cefepime 2 g IV. Will be seen by the hospitalist for further inpatient evaluation and care. Impression & Plan JONI (acute kidney injury), Acute dehydration, Acute UTI, Sepsis Discharge Plan Visit Data Chief Complaint: Urinary Symptoms Stated Complaint: FEVER 101.3CONFUSED LETHARGIC SHAKING PAIN-URINATE ED Provider: Cameron Dunham Discharge Problem: JONI (acute kidney injury), Acute dehydration, Acute UTI, Sepsis Patient Disposition: Being Evaluated by Hospitalist Forms Stand Alone Forms: My [facility] Referrals Referrals: Pro,Jong Mejia MD [Primary Care Provider] - Discharge Problem: Sepsis Qualifiers: Sepsis type: sepsis due to unspecified organism Sepsis acute organ dysfunction status: with acute organ dysfunction Severe sepsis acute organ dysfunction type: acute renal failure Acute renal failure type: unspecified Severe sepsis shock status: without septic shock Qualified Code(s): A41.9 - Sepsis, unspecified organism
--- NOTE | 2020-12-10 13:07 | Electrocardiogram Report ---
Test Reason : Blood Pressure : / mmHG Vent. Rate : 113 BPM Atrial Rate : 113 BPM P-R Int : 182 ms QRS Dur : 134 ms QT Int : 346 ms P-R-T Axes : 032 085 -05 degrees QTc Int : 474 ms Sinus tachycardia Right bundle branch block T wave abnormality, consider inferior ischemia Abnormal ECG When compared with ECG of 30-OCT-2020 18:36, AL interval has decreased Right bundle branch block is now Present Confirmed by Ryley Monahan ([id number]) on 12/10/2020 1:06:29 PM Referred By: REFERRED SELF Confirmed By:Ryley Monahan
--- NOTE | 2020-12-10 13:17 | XRay Report ---
XR chest 1V portable HISTORY: SEPSIS COMPARISON: Chest 10/30/2020. FINDINGS: No pneumothorax. No pleural effusions. There are low lung volumes. The heart remains enlarg ed. Chronic interstitial thickening persists. There is also chronic fibrotic change with right pleura l thickening and bronchiectasis within the right lung apex. No new focal lung consolidations. No evid ence for pulmonary edema. Degenerative changes again noted within the shoulders. A few punctate scatt ered metallic foreign bodies within the left side of the chest suggesting shrapnel. There is an old, healed clavicle fracture. IMPRESSION: Chronic changes within the chest as described above. No acute process identified. ACT 112: Negative or not required by law. Electronically signed by: Steven Busch M.D. 12/10/2020 1:15 PM
[2020-12-10 13:25] LABS: INR 1.1 (0.9-1.1); Partial Thromboplastin Ratio 1.4; Partial Thromboplastin Time 36.4 Seconds (21.0-31.0); Prothrombin Time 10.9 Seconds (9.0-12.0)
[2020-12-10 13:26] LABS: Magnesium 2.1 mg/dl (1.8-2.4)
[2020-12-10 14:10] LABS: Troponin I 0.017 ng/ml (0-0.045)
[2020-12-10 14:10] LABS: Appearance Urine Cloudy (Clear); Bilirubin Urine 1+ (Negative); Blood Urine Trace (Negative); Color Urine Dark Yellow; Glucose Urine UA Negative (Negative); Ketones Urine Trace (Negative); Leukocyte Esterase Urine 3+ (Negative); Nitrite Urine Positive (Negative); Protein Urine 1+ (Negative); Specific Gravity Urine 1.017 (1.000-1.030); Urobilinogen Urine Negative (Negative)
[2020-12-10] MEDS ORDERED: SODIUM CHLORIDE 0.9% 500 ML IV ONE (14:26)
[2020-12-10] MEDS ORDERED: SODIUM CHLORIDE 0.9% 1000ML 1,000 ML IV ONE (14:26)
[2020-12-10 14:29] LABS: Bacteria Urine 1+ (Negative); RBC Urine 0-4 /hpf (0-4); WBC Urine >30 /hpf (0-5)
[2020-12-10] MEDS ORDERED: ACETAMINOPHEN 500 MG TAB PO STA (14:38)
--- NOTE | 2020-12-10 15:50 | History & Physical Report ---
Date of Service December 10, 2020 Assessment & Plan (1) Sepsis: from urinary source, has h/o multidrug resistant organisms, q sofa score is 3, did have 3.5 liters in the ER, lactate is not elevated on admission is on Cefepime and cultures are pending pt has marked leukocytosis in the ER and lower blood pressure despite fluid resuscitation, will recheck lactic acid later to be sure not worsening sepsis, will have on tele due to concern (2) JONI (acute kidney injury): Cr up to 1.94 typically 1.1-1.2, will be hydrated likely atn from poor perfusion, with UTI will have U/S to eval for structural changes to predispose to recurrent infection or renal failure, did at one point have chronic indwelling cath (3) Chronic hypoxemic respiratory failure: Patient sees Dr. Stephenson. He has a history of interstitial lung disease, previous mycobacterial avium infection and chronic hypoxic respiratory failure on oxygen, typically on 2 L nasal cannula Remains on Asmanex Twisthaler she had this program albuterol as needed (4) Anemia: Patient hemoglobin 9.0 presentation typically runs in this range will follow daily lab checking additional nutritional parameters unless needed (5) Seizure disorder: Is a history of seizure disorder he remains on his divalproex 375 bid (6) Chronic diastolic CHF (congestive heart failure): Patient on cardiac medications including aspirin atorvastatin 40 metoprolol succinate 50 in addition he takes daily Lasix 40 mg (7) Hypokalemia: Hypokalemia will be documented on presentation (8) DVT prophylaxis: lovenox treatment pt is a DNR History of Present Illness Primary Care Provider: Jong Weir MD The patient presents from [facility] with a manager emergency. The manager emergency provides most of the history although the patient provides a little history. He is somewhat of a poor historian but all he is concerned about is being constipated. The patient has had flu symptoms since yesterday. He had a fever of 101.3 this morning. He c/o a sore throat. He was shivering in the exam room. He has a negative covid test. He also reported pain with urination and some body aches. He normally gets around walking but uses an electric wheelchair frequently because of some chronic pain issues. He does have history of frequent UTIs. last was a pcn, quinalone, sulfa resistant ecoli. he was given cefepime in the ER Allergies Allergy/AdvReac Type Severity Reaction Status Date / Time diltiazem Allergy Intermediate rash and Verified 12/10/20 14:28 edema fentanyl AdvReac Severe Confusion Verified 12/10/20 14:28 Home Medications Medication Instructions Recorded Confirmed Type acetaminophen [Tylenol Extra 500 mg PO Q6H PRN 12/10/20 12/10/20 History Strength] aspirin 81 mg PO HS 12/10/20 12/10/20 History atorvastatin 40 mg PO DAILY 12/10/20 12/10/20 History cholecalciferol (vitamin D3) 50 mcg PO DAILY 12/10/20 12/10/20 History [Vitamin D3] clozapine 300 mg PO HS 12/10/20 12/10/20 History cyanocobalamin (vitamin B-12) 1,000 mcg PO DAILY 12/10/20 12/10/20 History divalproex 125 mg PO BID 12/10/20 12/10/20 History divalproex 250 mg PO BID 12/10/20 12/10/20 History famotidine 20 mg PO BID 12/10/20 12/10/20 History ferrous sulfate 325 mg PO BID 12/10/20 12/10/20 History finasteride 5 mg PO HS 12/10/20 12/10/20 History furosemide 40 mg PO DAILY 12/10/20 12/10/20 History hydrocodone-acetaminophen 1 tab PO TID 12/10/20 12/10/20 History ipratropium-albuterol 3 ml INHALATION Q4H PRN 12/10/20 12/10/20 History levothyroxine 25 mcg PO DAILY 12/10/20 12/10/20 History magnesium hydroxide [Milk of 0 mg PO DAILY PRN 12/10/20 12/10/20 History Magnesia] metoprolol succinate 50 mg PO QAM 12/10/20 12/10/20 History mometasone [Asmanex Twisthaler] 220 mcg INHALATION HS 12/10/20 12/10/20 History phenazopyridine 200 mg PO TID PRN 12/10/20 12/10/20 History polyethylene glycol 3350 17 g PO DAILY PRN 12/10/20 12/10/20 History sennosides 17.2 mg PO BID 12/10/20 12/10/20 History tamsulosin 0.4 mg PO HS 12/10/20 12/10/20 History Past Med/Surg History Medical History Aspiration pneumonia (08/2018) 2018 Avascular necrosis BPH (benign prostatic hyperplasia) CAD in [place] artery Per [facility] cardio, "presumed CAD" based on coronary artery calcifications noted on imaging. Cavitary lesion of lung Chronic hypoxemic respiratory failure Chronic kidney disease (CKD), stage III (moderate) Dysphagia Edema GERD (gastroesophageal reflux disease) Hiatal hernia Hypercholesterolemia Hypertension Hypothyroidism Inappropriate ADH syndrome Interstitial lung disease On 2L O2 continuous via NC. Left ventricular hypertrophy Mild concentric LVH Lethargic Leukocytosis 2019 Nontuberculous mycobacterial disease of lung Following with [facility] pulmonary ([place]) Obstructive sleep apnea 2Lpm cont. On home oxygen therapy 2lpm continuous Paranoid schizophrenia Prostatitis not currently Seizure disorder none since medication was started. Patient's aid from [employer] reports the pt has not had one for as long as he has worked there (>4 years). Sepsis ~2018. Surgical History History of breast surgery ?? possible History unclear History of bronchoscopy History of cardiac cath >than 4 years ago. no stents. History of cataract surgery bilateral History of colonoscopy Family History Father Prostate cancer Mother Lung cancer Denies family history of Breast cancer Colorectal cancer Social History Smoking Status: Never smoker Age Quit Using Tobacco: 38; Second Hand Exposure: No; Hx Alcohol Use: No Hx Substance Use: No Preferred Language: Welsh Communication Ability: Effective Visual Impairment: No Limitations Hearing Ability: Normal Facilities Management Executive Required: No Beliefs That Will Affect Care: None marital status: Single Current Living Situation: Personal Care Facility Current Living Situation Comment: lives [employer] current occupational status: retired How many Children do You have: 0 Feels Safe at Home: Yes Seatbelt Use: always Assistive Devices: Denture - Upper, Denture - Lower, Glasses, Oxygen - Continuous, Walker and Wheelchair Review of Systems Review of Systems: Mild distress and fatigue no headache, blurry or double vision no speech or swallowing issues, complains of a sore throat no chest pain, pressure or palpitations no shortness of breath, cough or wheezes no abdominal pain, nausea or vomiting, c/o constipation c/o dysuria, hematuria or frequency no focal joint pain or swelling no back pain, CVA tenderness or radicular pain no bruising, bleeding or rashes no focal signs of weakness or numbness or altered sensation no complaints of anxiety or depression.. Physical Exam Physical Exam: The patient appeared well nourished and normally developed. Vital signs as documented. oral pharynx has some exudate Head exam is normocephalic atraumatic no scleral icterus Neck is without JVD, thyromegaly, or carotid bruits. Lungs are clear to auscultation, no focal loss of breath sounds Cardiac exam, Rhythm is regular.. No murmurs, rubs or gallops. Abdominal exam reveals normal bowel sounds, soft non tender, no masses Extremities are nonedematous and both pedal pulses are present Neurologic exam is alert and oriented x2, has MR, , no focal loss of strength or sensation Skin is without bruises or rashes Psychologically is without concerns for anxiety or depression Results & Data Results & Data ([facility]) Vital Signs (Past 12 Hours) Vital Signs Temp Pulse Resp BP Pulse Ox 12/10/20 15:20 100 H 20 12/10/20 15:10 100 H 30 H 12/10/20 15:00 103 H 18 90/51 L 12/10/20 14:50 101 H 20 98 12/10/20 14:45 100 H 22 84/44 L 99 12/10/20 14:44 100.0 F H 12/10/20 14:40 99 H 20 100 12/10/20 14:30 102 H 17 99/51 L 100 12/10/20 14:20 100 H 21 100 12/10/20 14:15 101 H 20 81/43 L 100 12/10/20 14:10 100 H 21 100 12/10/20 14:00 103 H 21 85/46 L 92 12/10/20 13:50 100 H 20 91 12/10/20 13:45 101 H 20 82/43 L 92 12/10/20 13:40 102 H 20 92 12/10/20 13:30 106 H 22 88/51 L 12/10/20 13:20 104 H 21 98 12/10/20 13:15 104 H 21 98/52 L 99 12/10/20 13:10 102 H 27 H 12/10/20 13:07 101 H 21 102/56 L 99 12/10/20 13:03 100 H 25 H 102/56 L 95 12/10/20 13:01 101 H 25 H 82/42 L 95 12/10/20 13:00 102 H 25 H 95 12/10/20 12:50 102 H 28 H 98 12/10/20 12:40 105 H 25 H 98 12/10/20 12:30 108 H 26 H 83/50 L 98 12/10/20 12:20 105 H 27 H 98 12/10/20 12:10 106 H 28 H 98 12/10/20 12:04 107 H 28 H 98 12/10/20 11:19 99.3 F 112 H 20 121/83 97 PG Care Time/CCT Total # of Minutes Spent Total Time Spent with Patient: Total time spent is greater than 50% in coordination of care (as documented) at patient's floor/unit and/or counseling patient: Coding Level of Care Code 00388 Initial Inpt Care Lvl 3 Diagnoses Sepsis A41.9 JONI (acute kidney injury) N17.9 Chronic hypoxemic respiratory failure J96.11 Anemia D64.9 Anemia type: unspecified type Seizure disorder G40.909 Chronic diastolic CHF (congestive heart failure) I50.32 Hypokalemia E87.6 DVT prophylaxis Z29.9 (1) Anemia Anemia type: unspecified type Qualified Code(s): D64.9 - Anemia, unspecified
[2020-12-10] MEDS ORDERED: ALUMINUM/MAGNESIUM SUSP 30 ML UDC PO PRN (18:47)
[2020-12-10] MEDS ORDERED: ALBUT/IPRATROP 3MG/0.5MG NEB 3 ML VIAL INH PRN (18:47)
[2020-12-10] MEDS ORDERED: MAGNESIUM HYDROXIDE SUSP 30 ML UDC PO PRN (18:47)
[2020-12-10] MEDS ORDERED: POLYETHYLENE (MIRALAX) 17 GM PACK PO PRN (18:47)
[2020-12-10] MEDS ORDERED: NON-FORMULARY MEDICATION (Acetaminophen 500 mg Capsule) PO PRN (18:47)
[2020-12-10] MEDS ORDERED: PHENAZOPYRIDINE HCL 200 MG TAB PO PRN (18:47)
[2020-12-10] MEDS ORDERED: ONDANSETRON INJ 2 MG/ML 2 ML VIAL IV PRN (18:47)
[2020-12-10] MEDS ORDERED: bisacodyL 10 MG SUPP PR STA (19:30)
[2020-12-10] MEDS: ENOXAPARIN INJ 40 MG/0.4 ML SYR SQ SCH (21:09)
[2020-12-10] MEDS: FLUTICASONE FUROATE 100MCG 14 PUFFS/INHALER INH SCH (21:10)
[2020-12-10] MEDS: DIVALPROEX DELAY RELEASE 250 MG TABEC PO SCH (21:11)
[2020-12-10] MEDS: cloZAPine 100 MG TAB PO SCH (21:11)
[2020-12-10] MEDS: ASPIRIN 81 MG ECTAB PO SCH (21:12)
[2020-12-10] MEDS: DIVALPROEX DELAY RELEASE 125 MG TABEC PO SCH (21:12)
[2020-12-10] MEDS: TAMSULOSIN HCL 0.4 MG CAP PO SCH (21:13)
[2020-12-10] MEDS: FERROUS SULFATE 325 MG TAB PO SCH (21:13)
[2020-12-10] MEDS: POTASSIUM CHLORIDE CRTAB 20 MEQ TABCR PO SCH (21:13)
[2020-12-10] MEDS: SENNA 8.6 MG TAB PO SCH (21:14)
[2020-12-10] MEDS: FAMOTIDINE 20 MG TAB PO SCH (21:14)
[2020-12-10] MEDS: FINASTERIDE 5 MG TAB PO SCH (21:15)
[2020-12-10] MEDS: HYDROCODONE/ACETAMOPHEN 5/325MG TAB PO SCH (21:29)
[2020-12-11] MEDS: LEVOTHYROXINE SODIUM 25 MCG TABLET PO SCH (05:03)
[2020-12-11 07:42] LABS: BUN Creatinine Ratio 32.4 (10-20); Calcium 8.7 mg/dl (8.5-10.1); Creatinine Clr Calc Pharmacy 59.8 ml/min; Est GFR (Non-African American) 66.4; Potassium 3.7 mmol/L (3.5-5.1)
[2020-12-11] MEDS: SENNA 8.6 MG TAB PO SCH ×2 (08:02→20:13)
[2020-12-11] MEDS: FAMOTIDINE 20 MG TAB PO SCH ×2 (08:03→20:14)
[2020-12-11] MEDS: FUROSEMIDE 40 MG TAB PO SCH (08:03)
[2020-12-11] MEDS: POTASSIUM CHLORIDE CRTAB 20 MEQ TABCR PO SCH ×2 (08:03→20:14)
[2020-12-11] MEDS: ATORVASTATIN 40 MG TAB PO SCH (08:03)
[2020-12-11] MEDS: METOPROLOL SUCC 50MG EXT REL TAB PO SCH ×2 (08:03→08:13)
[2020-12-11] MEDS: FERROUS SULFATE 325 MG TAB PO SCH ×2 (08:04→20:13)
[2020-12-11] MEDS: DIVALPROEX DELAY RELEASE 250 MG TABEC PO SCH ×2 (08:04→20:15)
[2020-12-11] MEDS: DIVALPROEX DELAY RELEASE 125 MG TABEC PO SCH ×2 (08:04→20:15)
[2020-12-11] MEDS: HYDROCODONE/ACETAMOPHEN 5/325MG TAB PO SCH ×3 (08:10→20:12)
[2020-12-11] MEDS: SODIUM CHLORIDE 0.9% 1000ML 1,000 ML IV SCH ×2 (11:01→20:23)
[2020-12-11] MEDS: CEFEPIME 2,000 MG in SYRINGE 0 ML IV SCH (14:40)
--- NOTE | 2020-12-11 15:05 | Palliative Care Consultation ---
Date of Consultation December 11, 2020 Assessment & Plan (1) Palliative care encounter: I spoke with Mahesh about his discussion with Dr. Jo. He recalls the discussion and saying that he would not want resuscitation. When I asked him to tell me more about that he said that when it gets to that point, resuscitation won't do any good and it is in God's hands. I asked him what would likely happen if we did not do CPR and he told me that he would be with God. He clearly understood the implications of his decision. He has a court appointed legal guardian who is Gema Hogan. I spoke with her at [phone]. She also feels that Mahesh is capable in terms of understanding the process and the implications of not doing CPR. She is planning to discuss this further with Mahesh' sister, Dede Nguyen to determine if that is consistent with her understanding of Mahesh' wishes and goals. She will contact me after that discussion and if Dede agrees, will support Mahesh' preference for DNR. We did discuss the fact that this does not imply that he would not receive other treatment if indicated for current and future medical problems and applies only to cardiorespiratory arrest. (2) Acute UTI: (3) Sepsis: Acute renal failure type: unspecified Sepsis acute organ dysfunction status: with acute organ dysfunction Sepsis type: sepsis due to unspecified organism Severe sepsis acute organ dysfunction type: acute renal failure Severe sepsis shock status: without septic shock Qualified Code(s): A41.9 - Sepsis, unspecified organism; R65.20 - Severe sepsis without septic shock; N17.9 - Acute kidney failure, unspecified (4) JONI (acute kidney injury): (5) Chronic hypoxemic respiratory failure: History of Present Illness Reason for Consultation: goals of care Requesting Physician: Dr. Jo Attending Physician: Lorie Lerner MD History of Present Illness 70 yo gentleman with interstitial lung disease and chronic respiratory failure, seizure disorder and schizophrenia, presented with urosepsis and JONI. He has a history of renal calculi and frequent UTIs with multi drug resistant organisms. He was seen by urology in September for stent removal after treatment for a previous stone. He had a renal CT on 12/04 which showed a nonobstructing left renal calculus and b/l renal cysts. His renal function has normalized and cultures are pending for UTI. Blood cultures are negative to date. On admission, he discussed code status with Dr. Jo and indicated that he would not want resuscitation. He had been a full code on prior hospitalizations and we have been consulted to assist with clarifying goals of care. Allergies Allergy/AdvReac Type Severity Reaction Status Date / Time diltiazem Allergy Intermediate rash and Verified 12/10/20 14:28 edema fentanyl AdvReac Severe Confusion Verified 12/10/20 14:28 Home Medications Medication Instructions Recorded Confirmed Type acetaminophen [Tylenol Extra 500 mg PO Q6H PRN 12/10/20 12/10/20 History Strength] aspirin 81 mg PO HS 12/10/20 12/10/20 History atorvastatin 40 mg PO DAILY 12/10/20 12/10/20 History cholecalciferol (vitamin D3) 50 mcg PO DAILY 12/10/20 12/10/20 History [Vitamin D3] clozapine 300 mg PO HS 12/10/20 12/10/20 History cyanocobalamin (vitamin B-12) 1,000 mcg PO DAILY 12/10/20 12/10/20 History divalproex 125 mg PO BID 12/10/20 12/10/20 History divalproex 250 mg PO BID 12/10/20 12/10/20 History famotidine 20 mg PO BID 12/10/20 12/10/20 History ferrous sulfate 325 mg PO BID 12/10/20 12/10/20 History finasteride 5 mg PO HS 12/10/20 12/10/20 History furosemide 40 mg PO DAILY 12/10/20 12/10/20 History hydrocodone-acetaminophen 1 tab PO TID 12/10/20 12/10/20 History ipratropium-albuterol 3 ml INHALATION Q4H PRN 12/10/20 12/10/20 History levothyroxine 25 mcg PO DAILY 12/10/20 12/10/20 History magnesium hydroxide [Milk of 0 mg PO DAILY PRN 12/10/20 12/10/20 History Magnesia] metoprolol succinate 50 mg PO QAM 12/10/20 12/10/20 History mometasone [Asmanex Twisthaler] 220 mcg INHALATION HS 12/10/20 12/10/20 History phenazopyridine 200 mg PO TID PRN 12/10/20 12/10/20 History polyethylene glycol 3350 17 g PO DAILY PRN 12/10/20 12/10/20 History sennosides 17.2 mg PO BID 12/10/20 12/10/20 History tamsulosin 0.4 mg PO HS 12/10/20 12/10/20 History Patient History Medical History Aspiration pneumonia (08/2018) 2018 Avascular necrosis BPH (benign prostatic hyperplasia) CAD in [place] artery Per [facility] cardio, "presumed CAD" based on coronary artery calcifications noted on imaging. Cavitary lesion of lung Chronic hypoxemic respiratory failure Chronic kidney disease (CKD), stage III (moderate) Dysphagia Edema GERD (gastroesophageal reflux disease) Hiatal hernia Hypercholesterolemia Hypertension Hypothyroidism Inappropriate ADH syndrome Interstitial lung disease On 2L O2 continuous via NC. Left ventricular hypertrophy Mild concentric LVH Lethargic Leukocytosis 2018 Nontuberculous mycobacterial disease of lung Following with [facility] pulmonary ([place]) Obstructive sleep apnea 2Lpm cont. On home oxygen therapy 2lpm continuous Paranoid schizophrenia Prostatitis not currently Seizure disorder none since medication was started. Patient's aid from [employer] reports the pt has not had one for as long as he has worked there (>4 years). Sepsis ~2018. Surgical History History of breast surgery ?? possible History unclear History of bronchoscopy History of cardiac cath >than 4 years ago. no stents. History of cataract surgery bilateral History of colonoscopy Family History Father Prostate cancer Mother Lung cancer Denies family history of Breast cancer Colorectal cancer Social History Smoking Status: Never smoker Age Quit Using Tobacco: 38; Second Hand Exposure: No; Hx Alcohol Use: No Hx Substance Use: No Preferred Language: Haitian Communication Ability: Impaired Visual Impairment: No Limitations Hearing Ability: Normal [place] Machine Operator Required: No Beliefs That Will Affect Care: None marital status: Single Current Living Situation: Other Current Living Situation Comment: [employer] current occupational status: retired How many Children do You have: 0 Other Information That Helps Us Care for You: No Feels Safe at Home: Yes Safety Concerns: Feels Safe At This Time Seatbelt Use: always Assistive Devices: Oxygen - Continuous Review of Systems Review of Systems: [place] Symptom Assessment Scale Pain 1/3 Dyspnea 1/3 Anxiety 0/3 Nausea 0/3 Fatigue 2/3 Drowsiness 1/3 Palliative Performance Score 40% Physical Exam Constitutional: + ill appearing; no acute distress ENMT: Mouth: + dry oral mucous membranes Respiratory: + uses accessory muscles Gastrointestinal (Abdomen): Inspection/Auscultation: abdomen not distended Skin: warm and dry Neurologic: moves all extremities and awake Psychiatric: Orientation: alert and oriented x 3 Thought Process: linear/logical thought process Results & Data ([facility]) Vital Signs (Past 12 Hours) Vital Signs Temp Pulse Pulse Resp BP Pulse Ox 12/11/20 12:31 97.9 F 96 H 18 110/68 96 12/11/20 08:13 92/46 L 12/11/20 07:25 98 H 12/11/20 07:09 97.2 F L 93 H 20 96/60 L 98 PG Care Time/CCT Total # of Minutes Spent Total Time Spent with Patient: Total time spent is greater than 50% in coordination of care (as documented) at patient's floor/unit and/or counseling patient: Total time spent 60 minutes with more than 50% of time spent on goals of care and coordination of care. Coding Level of Care Code 88268 Inpt Consult Level 3 Diagnoses Palliative care encounter Z51.5 Acute UTI N39.0 Sepsis A41.9; R65.20; N17.9 Acute renal failure type: unspecified Sepsis acute organ dysfunction status: with acute organ dysfunction Sepsis type: sepsis due to unspecified organism Severe sepsis acute organ dysfunction type: acute renal failure Severe sepsis shock status: without septic shock JONI (acute kidney injury) N17.9 Chronic hypoxemic respiratory failure J96.11
--- NOTE | 2020-12-11 15:35 | Hospitalist Progress Note ---
Date of Service December 11, 2020 Assessment & Plan (1) Sepsis: from urinary source, has h/o multidrug resistant organisms, q sofa score is 3, did have 3.5 liters in the ER, lactate is not elevated on admission is on Cefepime and cultures are pending Throat culture also pending Blood cultures no growth to date Of note, does have a history of kidney stones and had a ureteral stent just removed 6 weeks ago pt has marked leukocytosis in the ER and lower blood pressure -Hold Lasix and continue IV fluids Follow CBC, CMP (2) JONI (acute kidney injury): Cr up to 1.94 typically 1.1-1.2 Now improved with IV fluids back to normal No evidence of urinary obstruction at this time (3) Chronic hypoxemic respiratory failure: Patient sees pulmonology, he has a history of interstitial lung disease, previous mycobacterial avium infection and chronic hypoxic respiratory failure on oxygen, typically on 2 L nasal cannula Remains on Asmanex Twisthaler she had this program albuterol as needed (4) Anemia: Patient hemoglobin 9.0 presentation typically runs in this range, normocytic Follow CBC in the morning Check iron studies, B12, folate (5) Seizure disorder: Is a history of seizure disorder he remains on his divalproex 375 bid no acute issues (6) Chronic diastolic CHF (congestive heart failure): Patient on cardiac medications including aspirin atorvastatin 40 metoprolol succinate 50 -In addition he takes daily Lasix 40 mg which will be placed on hold (7) Hypokalemia: Replaced Resolved (8) DVT prophylaxis: lovenox treatment pt is a DNR Admission and Anticipated Discharge Date Admission Date: December 10, 2020 Subjective Patient had a bowel movement today. He denies shortness of breath. He has been quite consumed with trying to move his bowels on the bedpan multiple times today and was successful at least once. He continues to complain of painful urination. Otherwise he is doing well. Blood pressures are improved after IV fluids were continued. Telemetry with normal sinus rhythm with rates in the 90s to 100s Review of Systems Review of Systems: All systems reviewed & are unremarkable except as noted in HPI & below Physical Exam Constitutional: WD/WN, vitals as above Eyes: + anicteric sclerae ENMT: external ear and nose normal, oropharynx normal Neck: trachea midline, no thyromegaly Respiratory: normal respiratory effort, lungs clear to auscultation Cardiovascular: RRR, no murmur, no edema Chest (Breasts): Chest: normal inspection of chest Gastrointestinal (Abdomen): normal bowel sounds, soft, nontender, no hepatosplenomegaly Musculoskeletal: Extremities: extremities normal to inspection; no cyanosis and no clubbing Skin: no rashes, warm and dry Neurologic: moves all extremities and awake; no focal motor deficits Psychiatric: Orientation: alert, oriented to person, oriented to place and cooperative Speech: + pressured speech Lymphatic: no lymphedema Results & Data Results & Data ([facility]) Vital Signs (Past 12 Hours) Vital Signs Temp Pulse Pulse Resp BP Pulse Ox 12/11/20 15:20 37.0 C 100 H 16 102/65 95 12/11/20 15:00 104 H 12/11/20 12:31 36.6 C 96 H 18 110/68 96 12/11/20 08:13 92/46 L 12/11/20 07:25 98 H 12/11/20 07:09 36.2 C L 93 H 20 96/60 L 98 Laboratory Results 12/11/20 Range/Units 06:25 Sodium 144 (136-145) mmol/L Potassium 3.7 (3.5-5.1) mmol/L Chloride 116 H (98-107) mmol/L Carbon Dioxide 24 (21-32) mmol/L Anion Gap 4.0 (3-11) BUN 37 H (7-18) mg/dl Creatinine 1.13 D (0.6-1.4) mg/dl Est Cr Clr Drug Dosing 59.8 ml/min Est GFR ( Amer) 77.0 Est GFR (Non-Af Amer) 66.4 BUN/Creatinine Ratio 32.4 H (10-20) Glucose 90 (70-99) mg/dl Calcium 8.7 (8.5-10.1) mg/dl Magnesium 2.0 (1.8-2.4) mg/dl Throat culture-pending Urine culture-pending Blood cultures-no growth to date PG Care Time/CCT Total # of Minutes Spent Total Time Spent with Patient: Total time spent is greater than 50% in coordination of care (as documented) at patient's floor/unit and/or counseling patient: Coding Level of Care Code 69078 Subseq Hosp Care Lvl 3 Diagnoses Sepsis A41.9 JONI (acute kidney injury) N17.9 Chronic hypoxemic respiratory failure J96.11 Anemia D64.9 Anemia type: unspecified type Seizure disorder G40.909 Chronic diastolic CHF (congestive heart failure) I50.32 Hypokalemia E87.6 DVT prophylaxis Z29.9 (1) Anemia Anemia type: unspecified type Qualified Code(s): D64.9 - Anemia, unspecified
[2020-12-11] MEDS: FLUTICASONE FUROATE 100MCG 14 PUFFS/INHALER INH SCH (20:12)
[2020-12-11] MEDS: TAMSULOSIN HCL 0.4 MG CAP PO SCH (20:13)
[2020-12-11] MEDS: ASPIRIN 81 MG ECTAB PO SCH (20:14)
[2020-12-11] MEDS: ENOXAPARIN INJ 40 MG/0.4 ML SYR SQ SCH (20:15)
[2020-12-11] MEDS: FINASTERIDE 5 MG TAB PO SCH (20:16)
[2020-12-11] MEDS: cloZAPine 100 MG TAB PO SCH (20:16)
[2020-12-11] MEDS ORDERED: COUGH DROP (SUGAR FREE) LOZ 24 LOZ/1 BOX BUCCAL PRN (20:27)
[2020-12-11] MEDS ORDERED: COUGH DROP (SUGAR FREE) LOZ 24 LOZ/1 BOX BUCCAL ONE (20:29)
[2020-12-11] MEDS: BENZONATATE 100 MG CAPSULE PO PRN (22:01)
[2020-12-11] MEDS ORDERED: LEVALBUTEROL HCL 0.63 MG/3 ML NEB NEB STA (22:42)
[2020-12-11] MEDS ORDERED: FUROSEMIDE 40 MG in SYRINGE 0 ML IV ONE (23:00)
[2020-12-12] MEDS: LEVOTHYROXINE SODIUM 25 MCG TABLET PO SCH (05:56)
[2020-12-12 06:45] LABS: Basophils # (auto) 0.03 K/uL (0-0.2); Basophils % (auto) 0.2 %; Eosinophils # (auto) 0.26 K/uL (0-0.5); Hematocrit (blood only) 28.5 % (42-52); Hemoglobin 8.5 g/dL (14.0-18.0); Immature Granulocytes # (auto) 0.51 K/uL (0.00-0.02); Immature Granulocytes % (auto) 3.9 %; Lymphocytes # (auto) 1.88 K/uL (1.2-3.4); Lymphocytes % (auto) 14.2 %; Mean Corpuscular Hemoglobin 28.3 pg (25-34); Mean Corpuscular Hgb Conc 29.8 g/dL (32-36); Mean Platelet Volume 10.2 fL (7.4-10.4); Monocytes # (auto) 1.23 K/uL (0.11-0.59); Monocytes % (auto) 9.3 %; Neutrophils # (auto) 9.31 K/uL (1.4-6.5); Neutrophils % (auto) 70.4 %; Platelet Count 164 K/uL (130-400); RDW Coefficient of Variation 15.3 % (11.5-14.5); RDW Standard Deviation 52.8 fL (36.4-46.3); White Blood Count 13.22 K/uL (4.8-10.8)
[2020-12-12 07:11] LABS: Albumin Level 2.3 gm/dl (3.4-5.0); BUN Creatinine Ratio 21.3 (10-20); Calcium 8.6 mg/dl (8.5-10.1); Creatinine Clr Calc Pharmacy 56.6 ml/min; Est GFR (African American) 71.6; Est GFR (Non-African American) 61.8; Potassium 3.8 mmol/L (3.5-5.1)
[2020-12-12 07:14] LABS: Albumin Globulin Ratio 0.5 (0.9-2); Bilirubin,Total 0.3 mg/dl (0.2-1); Globulin 5.1 gm/dl (2.5-4.0); Total Protein 7.4 gm/dl (6.4-8.2)
--- NOTE | 2020-12-12 07:52 | XRay Report ---
XR chest 1V portable HISTORY: hypoxia COMPARISON: Chest 12/10/2020. FINDINGS: There are low lung volumes. The heart is normal in size. There is slight progression of dif fuse interstitial thickening. There are are trace bilateral pleural effusions which have also slightl y increased in size and small patchy bibasilar densities. Right apical fibrotic change and pleural th ickening remains stable. There is also stable chronic interstitial change within the left upper lung zone. Metallic densities within the left chest favor shrapnel. Old, healed left clavicle fracture. IMPRESSION: 1. Slight progression of the interstitial thickening and trace bilateral pleural fusions. This could represent mild pulmonary edema. 2. Patchy densities within the lung base have also progressed and may represent atelectasis or pneumo thomas. ACT 112: Negative or not required by law. Electronically signed by: Steven Busch M.D. 12/12/2020 7:50 AM
[2020-12-12] MEDS: METOPROLOL SUCC 50MG EXT REL TAB PO SCH (09:11)
[2020-12-12] MEDS: DIVALPROEX DELAY RELEASE 125 MG TABEC PO SCH ×2 (09:11→20:20)
[2020-12-12] MEDS: FAMOTIDINE 20 MG TAB PO SCH ×2 (09:11→20:19)
[2020-12-12] MEDS: SENNA 8.6 MG TAB PO SCH ×2 (09:11→20:19)
[2020-12-12] MEDS: ATORVASTATIN 40 MG TAB PO SCH (09:12)
[2020-12-12] MEDS: DIVALPROEX DELAY RELEASE 250 MG TABEC PO SCH ×2 (09:12→20:20)
[2020-12-12] MEDS: FERROUS SULFATE 325 MG TAB PO SCH ×2 (09:12→20:20)
[2020-12-12] MEDS: HYDROCODONE/ACETAMOPHEN 5/325MG TAB PO SCH ×3 (09:16→20:22)
[2020-12-12] MEDS: CEFEPIME 2,000 MG in SYRINGE 0 ML IV SCH (13:47)
[2020-12-12] MEDS: BENZONATATE 100 MG CAPSULE PO PRN (14:38)
--- NOTE | 2020-12-12 14:54 | Hospitalist Progress Note ---
Date of Service December 12, 2020 Assessment & Plan (1) Acute UTI: With dysuria, sepsis Ur cx mixed orgs, will repeat symptoms improved continue pyridium prn continue cefepime (2) Sepsis: from urinary source, has h/o multidrug resistant organisms, q sofa score is 3, did have 3.5 liters in the ER, lactate is not elevated on admission Leukocytosis improving, dysuria now resolved Ur cx growing mixed organisms -continue Cefepime -repeat Ur cx to isolate organism Throat culture normal carson Blood cultures no growth to date Of note, does have a history of kidney stones and had a ureteral stent just removed 6 weeks ago Bps still low but euvolemic -ok to restart home po Lasix Follow CBC, CMP (3) JONI (acute kidney injury): Cr up to 1.94 typically 1.1-1.2 Now improved with IV fluids back to normal No evidence of urinary obstruction at this time (4) Chronic hypoxemic respiratory failure: Patient sees pulmonology, he has a history of interstitial lung disease, previous mycobacterial avium infection and chronic hypoxic respiratory failure on oxygen, typically on 2 L nasal cannula Today with severe cough, somewhat productive of clear sputum, some wheezing, required increased O2 Some pulm edema on CXR from previous IVFs, was given IV lasix x 1 and now back on po lasix -make Duonebs scheduled -continue tessalon perles prn -continue ICS (5) Anemia: Patient hemoglobin 9.0 on presentation and now 8.5 -typically runs in this range, normocytic Fe studies show Fe deficiency--> is already on po iron -start IV Venofer daily x 3 doses - B12, folate normal -check Hemoccult stool -needs outpt GI workup for Fe-def anemia (6) Seizure disorder: Is a history of seizure disorder and he remains on his divalproex 375 bid no acute issues (7) Chronic diastolic CHF (congestive heart failure): With acute on chronic diastolic CHF here, with pulm edema developing overnight requiring IV lasix -continue aspirin, atorvastatin 40, metoprolol succinate 50 -In addition he takes daily Lasix 40 mg (8) Hypokalemia: Replaced Resolved (9) Hypothyroidism: continue LT4 (10) Obstructive sleep apnea: continue 2LNC continuously (11) Paranoid schizophrenia: continue home cloazapine,depakote (12) BPH (benign prostatic hyperplasia): with a h/o retention continue flomax, finasteride (13) CKD (chronic kidney disease), stage III: CKD stage 2-3 at baseline -Avoid nephrotoxins -renally dose meds when appropriate -follow BMP (14) GERD (gastroesophageal reflux disease): continue pepcid (15) Chronic pain: continue home hydrocodone bowel regimen (16) DVT prophylaxis: lovenox Dispo-continued stay on med-tele DNR Admission and Anticipated Discharge Date Admission Date: December 10, 2020 Subjective Pt had SOB overnight and was given IV lasix, had CXR showing worsening pulm edema, and was given Xopenex neb. O2 up to 4L today and when I saw him he was having an incessant cough and brought up large amounts of clear sputum. After receiving a neb treatment, he was improved and weaned back to 2L. Otherwise he says that he is no longer having dysuria, is eating well, not agitated today about his bowels like yesterday. Tele with NSR and ST rates 90-100s Review of Systems Review of Systems: All systems reviewed & are unremarkable except as noted in HPI & below Physical Exam Constitutional: WD/WN, vitals as above Eyes: + anicteric sclerae Neck: trachea midline, no thyromegaly Respiratory: + cough and + tachypneic Auscultation: + crackles and + wheezes Cardiovascular: RRR, no murmur, no edema Chest (Breasts): Chest: normal inspection of chest Gastrointestinal (Abdomen): normal bowel sounds, soft, nontender, no hepatosplenomegaly Musculoskeletal: Extremities: extremities normal to inspection; no cyanosis and no clubbing Skin: no rashes, warm and dry Neurologic: moves all extremities and awake; no focal motor deficits Psychiatric: Orientation: alert, oriented to person, oriented to place and cooperative Speech: + pressured speech Results & Data Results & Data ([facility]) Vital Signs (Past 12 Hours) Vital Signs Temp Pulse Pulse Resp BP Pulse Ox 12/12/20 11:00 36.8 C 97 H 20 95/59 L 95 12/12/20 07:44 35.8 C L 109 H 20 97/60 L 100 12/12/20 07:15 109 H 12/12/20 04:00 37.1 C 106 H 22 117/68 96 Laboratory Results 02/10/2012/12/20 12/12/20 Range/Units 06:14 06:14 06:14 WBC (4.8-10.8) K/uL RBC (4.7-6.1) M/uL Hgb (14.0-18.0) g/dL Hct (42-52) % MCV (80-100) fL MCH (25-34) pg MCHC (32-36) g/dL RDW Std Deviation (36.4-46.3) fL RDW Coeff of [place] (11.5-14.5) % Plt Count (130-400) K/uL MPV (7.4-10.4) fL Immature Gran % (Auto) % Neut % (Auto) % Lymph % (Auto) % [place] % (Auto) % Eos % (Auto) % Baso % (Auto) % Neut # (Auto) (1.4-6.5) K/uL Lymph # (Auto) (1.2-3.4) K/uL [place] # (Auto) (0.11-0.59) K/uL Eos # (Auto) (0-0.5) K/uL Baso # (Auto) (0-0.2) K/uL Immature Gran # (Auto) (0.00-0.02) K/uL Sodium 143 (136-145) mmol/L Potassium 3.8 (3.5-5.1) mmol/L Chloride 112 H (98-107) mmol/L Carbon Dioxide 28 (21-32) mmol/L Anion Gap 3.0 (3-11) BUN 26 H (7-18) mg/dl Creatinine 1.20 (0.6-1.4) mg/dl Est Cr Clr Drug Dosing 56.6 ml/min Est GFR ( Amer) 71.6 Est GFR (Non-Af Amer) 61.8 BUN/Creatinine Ratio 21.3 H (10-20) Glucose 91 (70-99) mg/dl Calcium 8.6 (8.5-10.1) mg/dl Iron 28 L (35-175) mcg/dl TIBC 248 L (250-450) mcg/dl Transferrin 157 L (200-360) mg/dl Transferrin % Sat 13 L (20-50) % Ferritin 1004.0 H (8-388) ng/ml Total Bilirubin 0.3 (0.2-1) mg/dl AST 22 (15-37) U/L ALT 20 (12-78) U/L Alkaline Phosphatase 81 (45-117) U/L Total Protein 7.4 (6.4-8.2) gm/dl Albumin 2.3 L (3.4-5.0) gm/dl Globulin 5.1 H (2.5-4.0) gm/dl Albumin/Globulin Ratio 0.5 L (0.9-2) Vitamin B12 1402 H (193-986) pg/ml Folate 12.00 (>5.38) ng/ml Procalcitonin 0.37 (0-0.5) ng/ml 12/12/20 Range/Units 06:14 WBC 13.22 H (4.8-10.8) K/uL RBC 3.00 L (4.7-6.1) M/uL Hgb 8.5 L (14.0-18.0) g/dL Hct 28.5 L (42-52) % MCV 95.0 (80-100) fL MCH 28.3 (25-34) pg MCHC 29.8 L (32-36) g/dL RDW Std Deviation 52.8 H (36.4-46.3) fL RDW Coeff of Nakia 15.3 H (11.5-14.5) % Plt Count 164 (130-400) K/uL MPV 10.2 (7.4-10.4) fL Immature Gran % (Auto) 3.9 % Neut % (Auto) 70.4 % Lymph % (Auto) 14.2 % [place] % (Auto) 9.3 % Eos % (Auto) 2.0 % Baso % (Auto) 0.2 % Neut # (Auto) 9.31 H (1.4-6.5) K/uL Lymph # (Auto) 1.88 (1.2-3.4) K/uL [place] # (Auto) 1.23 H (0.11-0.59) K/uL Eos # (Auto) 0.26 (0-0.5) K/uL Baso # (Auto) 0.03 (0-0.2) K/uL Immature Gran # (Auto) 0.51 H (0.00-0.02) K/uL Sodium (136-145) mmol/L Potassium (3.5-5.1) mmol/L Chloride (98-107) mmol/L Carbon Dioxide (21-32) mmol/L Anion Gap (3-11) BUN (7-18) mg/dl Creatinine (0.6-1.4) mg/dl Est Cr Clr Drug Dosing ml/min Est GFR ( Amer) Est GFR (Non-Af Amer) BUN/Creatinine Ratio (10-20) Glucose (70-99) mg/dl Calcium (8.5-10.1) mg/dl Iron (35-175) mcg/dl TIBC (250-450) mcg/dl Transferrin (200-360) mg/dl Transferrin % Sat (20-50) % Ferritin (8-388) ng/ml Total Bilirubin (0.2-1) mg/dl AST (15-37) U/L ALT (12-78) U/L Alkaline Phosphatase (45-117) U/L Total Protein (6.4-8.2) gm/dl Albumin (3.4-5.0) gm/dl Globulin (2.5-4.0) gm/dl Albumin/Globulin Ratio (0.9-2) Vitamin B12 (193-986) pg/ml Folate (>5.38) ng/ml Procalcitonin (0-0.5) ng/ml PG Care Time/CCT Total # of Minutes Spent Total Time Spent with Patient: Total time spent is greater than 50% in coordination of care (as documented) at patient's floor/unit and/or counseling patient: Coding Level of Care Code 77751 Subseq Hosp Care Lvl 3 Diagnoses Acute UTI N39.0 Sepsis A41.9 JONI (acute kidney injury) N17.9 Chronic hypoxemic respiratory failure J96.11 Anemia D64.9 Anemia type: unspecified type Seizure disorder G40.909 Chronic diastolic CHF (congestive heart failure) I50.32 Hypokalemia E87.6 Hypothyroidism E03.9 Hypothyroidism type: acquired Obstructive sleep apnea G47.33 Paranoid schizophrenia F20.0 BPH (benign prostatic hyperplasia) N40.0 Lower urinary tract symptom presence: symptoms absent CKD (chronic kidney disease), stage III N18.3 GERD (gastroesophageal reflux disease) K21.9 Esophagitis presence: esophagitis presence not specified Chronic pain G89.29 DVT prophylaxis Z29.9 (1) Anemia Anemia type: unspecified type Qualified Code(s): D64.9 - Anemia, unspecified (2) Hypothyroidism Hypothyroidism type: acquired Qualified Code(s): E03.9 - Hypothyroidism, unspecified (3) BPH (benign prostatic hyperplasia) Lower urinary tract symptom presence: symptoms absent Qualified Code(s): N40.0 - Benign prostatic hyperplasia without lower urinary tract symptoms (4) GERD (gastroesophageal reflux disease) Esophagitis presence: esophagitis presence not specified Qualified Code(s): K21.9 - Gastro-esophageal reflux disease without esophagitis
[2020-12-12] MEDS: ASPIRIN 81 MG ECTAB PO SCH (20:19)
[2020-12-12] MEDS: cloZAPine 100 MG TAB PO SCH (20:20)
[2020-12-12] MEDS: TAMSULOSIN HCL 0.4 MG CAP PO SCH (20:20)
[2020-12-12] MEDS: FINASTERIDE 5 MG TAB PO SCH (20:20)
[2020-12-12] MEDS: FLUTICASONE FUROATE 100MCG 14 PUFFS/INHALER INH SCH (20:21)
[2020-12-12] MEDS: ENOXAPARIN INJ 40 MG/0.4 ML SYR SQ SCH (20:21)
[2020-12-13] MEDS: ACETAMINOPHEN 325 MG TAB PO PRN ×2 (04:45→16:09)
[2020-12-13] MEDS: LEVOTHYROXINE SODIUM 25 MCG TABLET PO SCH (04:46)
[2020-12-13 06:22] LABS: Hematocrit (blood only) 27.1 % (42-52); Hemoglobin 8.1 g/dL (14.0-18.0); Mean Corpuscular Hemoglobin 28.1 pg (25-34); Mean Corpuscular Hgb Conc 29.9 g/dL (32-36); Mean Corpuscular Volume 94.1 fL (80-100); Mean Platelet Volume 10.2 fL (7.4-10.4); Platelet Count 166 K/uL (130-400); RDW Coefficient of Variation 15.1 % (11.5-14.5); RDW Standard Deviation 51.6 fL (36.4-46.3); Red Blood Count 2.88 M/uL (4.7-6.1); White Blood Count 10.42 K/uL (4.8-10.8)
[2020-12-13 06:49] LABS: Basophils # (auto) 0.05 K/uL (0-0.2); Basophils % (auto) 0.5 %; Eosinophils # (auto) 0.35 K/uL (0-0.5); Eosinophils % (auto) 3.4 %; Immature Granulocytes # (auto) 0.84 K/uL (0.00-0.02); Immature Granulocytes % (auto) 8.1 %; Lymphocytes # (auto) 1.65 K/uL (1.2-3.4); Lymphocytes % (auto) 15.8 %; Monocytes # (auto) 1.11 K/uL (0.11-0.59); Monocytes % (auto) 10.7 %; Neutrophils # (auto) 6.42 K/uL (1.4-6.5); Neutrophils % (auto) 61.5 %; RBC Morphology Unremarkable
[2020-12-13 07:00] LABS: Calcium 9.4 mg/dl (8.5-10.1); Creatinine Clr Calc Pharmacy 69.3 ml/min; Est GFR (African American) 92.6; Est GFR (Non-African American) 79.9
[2020-12-13] MEDS: ALBUT/IPRATROP 3MG/0.5MG NEB 3 ML VIAL INH SCH ×3 (07:08→19:24)
[2020-12-13 07:10] LABS: Thyroid Stimulating Hormone 4.71 uIu/ml (0.300-4.500)
[2020-12-13] MEDS: DIVALPROEX DELAY RELEASE 125 MG TABEC PO SCH ×2 (08:00→20:32)
[2020-12-13] MEDS: FERROUS SULFATE 325 MG TAB PO SCH ×2 (08:01→20:34)
[2020-12-13] MEDS: METOPROLOL SUCC 50MG EXT REL TAB PO SCH (08:01)
[2020-12-13] MEDS: BENZONATATE 100 MG CAPSULE PO PRN (08:01)
[2020-12-13] MEDS: DIVALPROEX DELAY RELEASE 250 MG TABEC PO SCH ×2 (08:01→20:32)
[2020-12-13] MEDS: FUROSEMIDE 40 MG TAB PO SCH (08:01)
[2020-12-13] MEDS: SENNA 8.6 MG TAB PO SCH ×2 (08:02→20:34)
[2020-12-13] MEDS: FAMOTIDINE 20 MG TAB PO SCH ×2 (08:02→20:34)
[2020-12-13] MEDS: ATORVASTATIN 40 MG TAB PO SCH (08:02)
[2020-12-13] MEDS: HYDROCODONE/ACETAMOPHEN 5/325MG TAB PO SCH ×3 (08:12→20:36)
[2020-12-13] MEDS: IRON SUCROSE 300 MG in SODIUM CHLORIDE 0.9% 250 ML IV SCH (08:12)
--- NOTE | 2020-12-13 10:19 | Hospitalist Progress Note ---
Date of Service December 13, 2020 Assessment & Plan (1) Acute UTI: With dysuria, sepsis all now improved Leukocytosis was marked and is now resolved. Hypotension now resolved, is afebrile, dysuria resolved Has a h/o kidney stones Ur cx mixed orgs, repeat Ur cx after being on therapy with abx is with no growth continue pyridium prn continue cefepime for now and convert to po cefdinir likely tomorrow and complete 14 day course (2) Sepsis: from urinary source, has h/o multidrug resistant organisms, q sofa score is 3, did have 3.5 liters in the ER, lactate is not elevated on admission Leukocytosis resolved, dysuria now resolved UTI tx as above Throat culture normal carson Blood cultures no growth to date Of note, does have a history of kidney stones and had a ureteral stent just removed 6 weeks ago Bps were low but now ok Follow CBC, CMP (3) JONI (acute kidney injury): Cr up to 1.94 typically 1.1-1.2 Now improved with IV fluids back to normal No evidence of urinary obstruction at this time (4) Chronic hypoxemic respiratory failure: Patient sees pulmonology, he has a history of interstitial lung disease, untreated mycobacterial avium infection, 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, and chronic hypoxic respiratory failure on oxygen, typically on 2 L nasal cannula Has a long h/o chronic cough, is a mouth breather Severe coughing spells from previous are now improved with tid Duonebs and tessalon perles Some pulm edema on CXR from previous IVFs, was given IV lasix x 1 and now back on po lasix I do not think he needs abx for PNA but will check PCT in AM -continue Duonebs scheduled -continue tessalon perles prn -continue ICS (5) Anemia: Patient hemoglobin 9.0 on presentation and now 8.1 -typically runs in this range, normocytic Fe studies show Fe deficiency--> is already on po iron -started IV Venofer daily x 3 doses - B12, folate normal -check Hemoccult stool-pending -needs outpt GI workup for Fe-def anemia if desired (6) Seizure disorder: Is a history of seizure disorder and he remains on his divalproex 375 bid no acute issues (7) Chronic diastolic CHF (congestive heart failure): With acute on chronic diastolic CHF here, with pulm edema developing overnight requiring IV lasix -continue aspirin, atorvastatin 40, metoprolol succinate 50 -In addition he takes daily Lasix 40 mg (8) Hypokalemia: Replaced Resolved (9) Hypothyroidism: TSH here mildly elevated but FT4 normal continue LT4 (10) Obstructive sleep apnea: continue 2LNC continuously (11) Paranoid schizophrenia: continue home clozapine,depakote at risk for nutritional deficiencies check B1 level and start thiamine in AM (12) BPH (benign prostatic hyperplasia): with a h/o retention continue flomax, finasteride (13) CKD (chronic kidney disease), stage III: CKD stage 2-3 at baseline -Avoid nephrotoxins -renally dose meds when appropriate -follow BMP (14) GERD (gastroesophageal reflux disease): continue pepcid (15) Chronic pain: of the hip continue home hydrocodone bowel regimen (16) Constipation: opioid-induced continue senna 17.2 bid Miralax prn add lactulose prn no BM once daily (17) Hypertension: BPs were low from sepsis, now normal but soft continue metoprolol with parameters continue po lasix (18) DVT prophylaxis: lovenox Dispo-continued stay on med-tele DNR-appreciate Palliative Consultation PT/OT--> OT saw and demonstrates he is at significant lower level of function compared to previous, awaiting PT recs Most likely needs SNF placement on Tuesday Admission and Anticipated Discharge Date Admission Date: December 10, 2020 Subjective Pt drowsy and very weak today but answers questions with dysarthric speech. Was apparently coughing throughout the night and did not get much sleep. He didn't eat much of his breakfast when I saw him. O2 was however weaned back to his usual 2LNC He denied chest pains or problems No further dysuria Review of Systems Review of Systems: Unobtainable due to cognitive status Physical Exam Constitutional: WD/WN, vitals as above Eyes: + anicteric sclerae Neck: trachea midline, no thyromegaly Respiratory: + cough Auscultation: + crackles and + wheezes Cardiovascular: RRR, no murmur, no edema Chest (Breasts): Chest: normal inspection of chest Gastrointestinal (Abdomen): normal bowel sounds, soft, nontender, no hepatosplenomegaly Musculoskeletal: Extremities: extremities normal to inspection; no cyanosis and no clubbing Skin: no rashes, warm and dry Neurologic: moves all extremities and awake; no focal motor deficits Psychiatric: Orientation: alert, oriented to person, oriented to place and cooperative Results & Data Results & Data ([facility]) Vital Signs (Past 12 Hours) Vital Signs Temp Pulse Pulse Resp BP Pulse Ox 12/13/20 10:10 36.8 C 88 98/52 L 92 12/13/20 07:24 36.7 C 90 20 104/60 96 12/13/20 07:08 92 H 19 93 12/13/20 03:00 36.6 C 94 H 20 111/69 97 12/13/20 00:15 90 12/12/20 23:19 36.8 C 97 H 18 95/59 L 95 Laboratory Results 12/13/20 05:57 12/13/20 05:57 PG Care Time/CCT Total # of Minutes Spent Total Time Spent with Patient: Total time spent is greater than 50% in coordination of care (as documented) at patient's floor/unit and/or counseling patient: Coding Level of Care Code 78410 Subseq Hosp Care Lvl 3 Diagnoses Acute UTI N39.0 Sepsis A41.9 JONI (acute kidney injury) N17.9 Chronic hypoxemic respiratory failure J96.11 Anemia D64.9 Anemia type: unspecified type Seizure disorder G40.909 Chronic diastolic CHF (congestive heart failure) I50.32 Hypokalemia E87.6 Hypothyroidism E03.9 Hypothyroidism type: acquired Obstructive sleep apnea G47.33 Paranoid schizophrenia F20.0 BPH (benign prostatic hyperplasia) N40.0 Lower urinary tract symptom presence: symptoms absent CKD (chronic kidney disease), stage III N18.3 GERD (gastroesophageal reflux disease) K21.9 Esophagitis presence: esophagitis presence not specified Chronic pain G89.29 Constipation K59.00 Hypertension I10 Hypertension type: essential hypertension DVT prophylaxis Z29.9 (1) BPH (benign prostatic hyperplasia) Lower urinary tract symptom presence: symptoms absent Qualified Code(s): N40.0 - Benign prostatic hyperplasia without lower urinary tract symptoms (2) Anemia Anemia type: unspecified type Qualified Code(s): D64.9 - Anemia, unspecified (3) Hypothyroidism Hypothyroidism type: acquired Qualified Code(s): E03.9 - Hypothyroidism, unspecified (4) GERD (gastroesophageal reflux disease) Esophagitis presence: esophagitis presence not specified Qualified Code(s): K21.9 - Gastro-esophageal reflux disease without esophagitis (5) Hypertension Hypertension type: essential hypertension Qualified Code(s): I10 - Essential (primary) hypertension
[2020-12-13] MEDS: CEFEPIME 2,000 MG in SYRINGE 0 ML IV SCH (14:11)
[2020-12-13] MEDS: ENOXAPARIN INJ 40 MG/0.4 ML SYR SQ SCH (20:30)
[2020-12-13] MEDS: FLUTICASONE FUROATE 100MCG 14 PUFFS/INHALER INH SCH (20:31)
[2020-12-13] MEDS: cloZAPine 100 MG TAB PO SCH (20:32)
[2020-12-13] MEDS: TAMSULOSIN HCL 0.4 MG CAP PO SCH (20:33)
[2020-12-13] MEDS: ASPIRIN 81 MG ECTAB PO SCH (20:33)
[2020-12-13] MEDS: FINASTERIDE 5 MG TAB PO SCH (20:35)
[2020-12-14] MEDS: LEVOTHYROXINE SODIUM 25 MCG TABLET PO SCH (05:44)
[2020-12-14] MEDS: ACETAMINOPHEN 325 MG TAB PO PRN (05:56)
[2020-12-14] MEDS: ALBUT/IPRATROP 3MG/0.5MG NEB 3 ML VIAL INH SCH ×3 (07:02→19:28)
[2020-12-14 07:34] LABS: BUN Creatinine Ratio 22.4 (10-20); Calcium 9.2 mg/dl (8.5-10.1); Creatinine Clr Calc Pharmacy 67.3 ml/min; Est GFR (African American) 90.3; Est GFR (Non-African American) 77.9; Potassium 3.8 mmol/L (3.5-5.1)
[2020-12-14] MEDS: DIVALPROEX DELAY RELEASE 125 MG TABEC PO SCH ×2 (08:28→20:59)
[2020-12-14] MEDS: METOPROLOL SUCC 50MG EXT REL TAB PO SCH (08:28)
[2020-12-14] MEDS: ATORVASTATIN 40 MG TAB PO SCH (08:28)
[2020-12-14] MEDS: FAMOTIDINE 20 MG TAB PO SCH ×2 (08:28→20:59)
[2020-12-14] MEDS: FERROUS SULFATE 325 MG TAB PO SCH ×2 (08:28→20:59)
[2020-12-14] MEDS: SENNA 8.6 MG TAB PO SCH ×2 (08:28→20:59)
[2020-12-14] MEDS: DIVALPROEX DELAY RELEASE 250 MG TABEC PO SCH ×2 (08:28→20:59)
[2020-12-14] MEDS: FUROSEMIDE 40 MG TAB PO SCH (08:29)
[2020-12-14] MEDS: BENZONATATE 100 MG CAPSULE PO PRN (08:29)
[2020-12-14] MEDS: THIAMINE HCL 200 MG in SODIUM CHLORIDE 0.9% 50 ML IV SCH (08:29)
[2020-12-14] MEDS: HYDROCODONE/ACETAMOPHEN 5/325MG TAB PO SCH ×3 (08:30→20:59)
[2020-12-14] MEDS: IRON SUCROSE 300 MG in SODIUM CHLORIDE 0.9% 250 ML IV SCH (09:03)
[2020-12-14] MEDS: CEFEPIME 2,000 MG in SYRINGE 0 ML IV SCH (13:47)
[2020-12-14] MEDS ORDERED: bisacodyL 10 MG SUPP PR PRN (14:48)
[2020-12-14] MEDS: POLYETHYLENE (MIRALAX) 17 GM PACK PO SCH (15:55)
--- NOTE | 2020-12-14 20:28 | Hospitalist Progress Note ---
Date of Service December 14, 2020 Assessment & Plan (1) Acute UTI: With dysuria, sepsis all now improved Leukocytosis was marked and is now resolved. Hypotension now resolved, is afebrile, dysuria resolved Has a h/o kidney stones but UA here neg for RBCs, no flank pain although today is describing some vague left lower back pain which I do not believe is career services representative of renal colic Unfortunately Ur cx only growing moderate amounts of mixed orgs, so not sure what we're treating although is markedly better on Cefepime. - repeat Ur cx after being on therapy with abx is with no growth continue pyridium prn continue cefepime for now and convert to po cefdinir upon discharge and complete 14 day course (2) Sepsis: With acute metabolic encephalopathy on admission exhibited by confusion, lethargy-now much improved but some residual lethargy as per soft sugar cutter who visited on 12/14 from urinary source, has h/o multidrug resistant organisms, q sofa score is 3, did have 3.5 liters in the ER, lactate is not elevated on admission Leukocytosis resolved, dysuria now resolved UTI tx as above Throat culture normal carson Blood cultures no growth to date Of note, does have a history of kidney stones and had a ureteral stent just removed 6 weeks ago but do not suspect recurrent stone at this time Bps were low but now ok No other end-organ damage, renal function now normal Given intellectual disability, significant mental health issues, poor nutrition, sepsis, encephalopathy, tremor--> check B1 level and start empiric IV thiamine- would continue po thiamine after discharge (3) JONI (acute kidney injury): Cr up to 1.94 typically 1.1-1.2 Now improved with IV fluids back to normal No evidence of urinary obstruction at this time (4) Generalized weakness: secondary to acute illness, sepsis, hospitalization PT/OT working with him and is significantly decreased in strength and endurance from baseline, but strong enough to stand up on his own and soft sugar cutter said he can be managed at home with this level of strength -continue PT/OT here and at home with home health (5) Chronic hypoxemic respiratory failure: Patient sees pulmonology, he has a history of interstitial lung disease, untreated mycobacterial avium infection, 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, and chronic hypoxic respiratory failure on oxygen, typically on 2 L nasal cannula Has a long h/o chronic cough, is a mouth breather Has many adventitious sounds on auscultation but this is likely baseline given abnormal chest imaging which is chronic Severe coughing spells from previous are now improved with tid Duonebs and annette gonzalez Some pulm edema on CXR from previous IVFs, was given IV lasix x 1 and now back on po lasix I do not think he needs abx for PNA Improved acute component of resp failure -continue Duonebs scheduled -dc annette gonzalez as he is excessively drowsy and already taking hydrocodone scheduled tid -continue ICS (6) Anemia: Patient hemoglobin 9.0 on presentation and now 8.1 -typically runs in this range, normocytic Fe studies show Fe deficiency--> is already on po iron -started IV Venofer daily x 3 doses - B12, folate normal -check Hemoccult stool-pending -needs outpt GI workup for Fe-def anemia if desired -follow CBC in AM (7) Seizure disorder: Is a history of seizure disorder and he remains on his divalproex 375 bid no acute issues (8) Chronic diastolic CHF (congestive heart failure): With acute on chronic diastolic CHF here, with pulm edema developing overnight on 12/13 requiring IV lasix after receiving copious IVFs for sepsis Now improved back to baseline -continue aspirin, atorvastatin 40, metoprolol succinate 50 -continue daily Lasix 40 mg po (9) Hypokalemia: Replaced Resolved (10) Hypothyroidism: TSH here mildly elevated but FT4 normal continue LT4 (11) Obstructive sleep apnea: continue 2LNC continuously (12) Paranoid schizophrenia: continue home clozapine,depakote at risk for nutritional deficiencies checked B1 level and started thiamine (13) BPH (benign prostatic hyperplasia): with a h/o retention continue flomax, finasteride (14) CKD (chronic kidney disease), stage III: CKD stage 2-3 at baseline -Avoid nephrotoxins -renally dose meds when appropriate -follow BMP (15) GERD (gastroesophageal reflux disease): continue pepcid (16) Chronic pain: of the hip continue home hydrocodone bowel regimen (17) Constipation: opioid-induced, no BM for several days may be contributing to ongoing mild encephalopathy continue senna 17.2 bid Miralax prn -continue lactulose prn no BM once daily -added Dulcolax suppos [place] daily prn (18) Hypertension: BPs were low from sepsis, now normal but soft continue metoprolol with parameters continue po lasix (19) DVT prophylaxis: lovenox Dispo-continued stay but can transfer to medical floor. If pt feeling better, can hopefully dc to [facility] in 1-2 days. Difficult to ascertain how pt is really doing between intellectual delay and reported history of exaggeration of symptoms for secondary gain, but he still does not look well so will keep overnight PT/OT--> OT saw and demonstrates he is at significant lower level of function compared to previous, PT reports weak but can go to [facility] with 24/7 care as soft sugar cutter at bedside confident they can handle patient at this level of functioning. Would certainly need home health and PT/OT DNR-appreciate Palliative Consultation Admission and Anticipated Discharge Date Admission Date: December 10, 2020 Subjective Pt appears better today but states repeatedly that he just isn't feeling well and is not ready to go home. He reports pain in his left hip and left lower back but RN reports she was late giving him his mid-day hydrocodone as he was sleeping. This AM he worked with PT and stood up on his own but then bent forward and bounced his forehead off the walker, pushing his glasses into the bridge of his nose causing slight abrasion. PT reports pt immediately stood upright and then sat himself down. I was present in the afternoon when one of the patient's caretakers, Sreekanth, came in to assess if he was at his baseline. Sreekanth reported that pt seemed much improved from admission as far as improved level of alertness, but still seemed a little sluggish, had a bit of a tremor, and speech was softer than normal. Supervisor [employer] also seemed insistent that pt frequently exaggerates symptoms for attention. PT came back and this time, pt did better, was able to stand up on own, side stepped 2 steps and then sit back down with contact guard assistance while soft sugar cutter present. He did seem to take many steps in place like he was marching and seemed nervous about falling. Supervisor [employer] reports typically pt can walk approximately 30 feet without any problems at the home. Pt has been eating, no nausea, but has not moved bowels now in 3 days.No abd pain. Denies CP or SOB and is on his home 2LNC. Cough is much improved Supervisor [employer] made multiple attempts to get pt to agree for discharge but pt insisted he just was not feeling well enough. I advised pt stay for further care and observation. Tele with [facility], rates 90-100s Review of Systems Review of Systems: All systems reviewed & are unremarkable except as noted in HPI & below Physical Exam Constitutional: WD/WN, vitals as above Eyes: + anicteric sclerae ENMT: external ear and nose normal, oropharynx normal Neck: trachea midline, no thyromegaly Respiratory: + cough Auscultation: + crackles and + wheezes Cardiovascular: Rate/Rhythm: regular rate and regular rhythm Heart Sounds: no murmur Extremities: + edema (trace pitting edema to thighs bilat) Gastrointestinal (Abdomen): normal bowel sounds, soft, nontender, no hepatosplenomegaly Musculoskeletal: Extremities: extremities normal to inspection; no cyanosis and no clubbing Skin: no rashes, warm and dry Neurologic: moves all extremities and awake; no focal motor deficits (but generally weak throughout 4/5) Speech / Cognition: + abnormal speech (very soft, garbled, rapid) Psychiatric: Orientation: alert, oriented to person, oriented to place and cooperative Results & Data Results & Data ([facility]) Vital Signs (Past 12 Hours) Vital Signs Temp Pulse Pulse Resp BP BP Pulse Ox 12/14/20 19:28 81 20 96 12/14/20 19:26 36.8 C 85 20 114/71 96 12/14/20 19:21 90 12/14/20 15:22 36.6 C 93 H 18 107/69 96 12/14/20 13:19 81 20 93 12/14/20 10:40 36.8 C 93 H 129/65 96 Laboratory Results 12/14/20 12/14/20 Range/Units 06:24 06:24 Sodium 143 (136-145) mmol/L Potassium 3.8 (3.5-5.1) mmol/L Chloride 111 H (98-107) mmol/L Carbon Dioxide 29 (21-32) mmol/L Anion Gap 3.0 (3-11) BUN 22 H (7-18) mg/dl Creatinine 0.99 (0.6-1.4) mg/dl Est Cr Clr Drug Dosing 67.3 ml/min Est GFR ( Amer) 90.3 Est GFR (Non-Af Amer) 77.9 BUN/Creatinine Ratio 22.4 H (10-20) Glucose 91 (70-99) mg/dl Calcium 9.2 (8.5-10.1) mg/dl Whole Bld Vitamin B1 Pending PG Care Time/CCT Total # of Minutes Spent Total Time Spent with Patient: Total time spent is greater than 50% in coordination of care (as documented) at patient's floor/unit and/or counseling patient: Coding Level of Care Code 60567 Subseq Hosp Care Lvl 3 Diagnoses Acute UTI N39.0 Sepsis A41.9 JONI (acute kidney injury) N17.9 Generalized weakness R53.1 Chronic hypoxemic respiratory failure J96.11 Anemia D64.9 Anemia type: unspecified type Seizure disorder G40.909 Chronic diastolic CHF (congestive heart failure) I50.32 Hypokalemia E87.6 Hypothyroidism E03.9 Hypothyroidism type: acquired Obstructive sleep apnea G47.33 Paranoid schizophrenia F20.0 BPH (benign prostatic hyperplasia) N40.0 Lower urinary tract symptom presence: symptoms absent CKD (chronic kidney disease), stage III N18.3 GERD (gastroesophageal reflux disease) K21.9 Esophagitis presence: esophagitis presence not specified Chronic pain G89.29 Constipation K59.00 Hypertension I10 Hypertension type: essential hypertension DVT prophylaxis Z29.9 (1) BPH (benign prostatic hyperplasia) Lower urinary tract symptom presence: symptoms absent Qualified Code(s): N40.0 - Benign prostatic hyperplasia without lower urinary tract symptoms (2) Anemia Anemia type: unspecified type Qualified Code(s): D64.9 - Anemia, unspecified (3) Hypothyroidism Hypothyroidism type: acquired Qualified Code(s): E03.9 - Hypothyroidism, unspecified (4) GERD (gastroesophageal reflux disease) Esophagitis presence: esophagitis presence not specified Qualified Code(s): K21.9 - Gastro-esophageal reflux disease without esophagitis (5) Hypertension Hypertension type: essential hypertension Qualified Code(s): I10 - Essential (primary) hypertension
[2020-12-14] MEDS: TAMSULOSIN HCL 0.4 MG CAP PO SCH (20:59)
[2020-12-14] MEDS: cloZAPine 100 MG TAB PO SCH (20:59)
[2020-12-14] MEDS: ENOXAPARIN INJ 40 MG/0.4 ML SYR SQ SCH (20:59)
[2020-12-14] MEDS: ASPIRIN 81 MG ECTAB PO SCH (20:59)
[2020-12-14] MEDS: FINASTERIDE 5 MG TAB PO SCH (20:59)
[2020-12-14] MEDS: FLUTICASONE FUROATE 100MCG 14 PUFFS/INHALER INH SCH (21:00)
[2020-12-15] MEDS ORDERED: ALBUT/IPRATROP 3MG/0.5MG NEB 3 ML VIAL NEB STA (01:00)
[2020-12-15] MEDS: LEVOTHYROXINE SODIUM 25 MCG TABLET PO SCH (05:55)
[2020-12-15 06:53] LABS: Hematocrit (blood only) 28.6 % (42-52); Hemoglobin 8.4 g/dL (14.0-18.0); Mean Corpuscular Hemoglobin 27.9 pg (25-34); Mean Corpuscular Hgb Conc 29.4 g/dL (32-36); Mean Platelet Volume 9.4 fL (7.4-10.4); Platelet Count 193 K/uL (130-400); RDW Coefficient of Variation 15.2 % (11.5-14.5); RDW Standard Deviation 52.2 fL (36.4-46.3); Red Blood Count 3.01 M/uL (4.7-6.1)
[2020-12-15] MEDS: ALBUT/IPRATROP 3MG/0.5MG NEB 3 ML VIAL INH SCH ×3 (07:13→19:06)
[2020-12-15 07:18] LABS: BUN Creatinine Ratio 21.5 (10-20); Calcium 9.1 mg/dl (8.5-10.1); Creatinine Clr Calc Pharmacy 75.1 ml/min; Est GFR (African American) 101.8; Est GFR (Non-African American) 87.9; Magnesium 2.1 mg/dl (1.8-2.4); Potassium 3.9 mmol/L (3.5-5.1)
[2020-12-15 07:23] LABS: ALC (manual) 1.95 K/uL (1.2-3.4); ANC (manual) 9.07 K/uL (1.4-6.5); Basophils # (manual) 0.22 K/uL (0-0.2); Basophils % (manual) 1.7 %; Eosinophils # (manual) 0.12 K/uL (0-0.5); Eosinophils % (manual) 0.9 %; Lymphocytes # (manual) 1.95 K/uL (1.2-3.4); Lymphocytes % (manual) 14.8 %; Monocytes # (manual) 0.46 K/uL (0.11-0.59); Monocytes % (manual) 3.5 %; Myelocytes # (manual) 1.37 K/uL (0-0); Myelocytes % (manual) 10.4 %; Neutrophils # (manual) 9.07 K/uL (1.4-6.5); Neutrophils % (manual) 68.7 %
[2020-12-15] MEDS: FAMOTIDINE 20 MG TAB PO SCH ×2 (07:57→20:48)
[2020-12-15] MEDS: DIVALPROEX DELAY RELEASE 250 MG TABEC PO SCH ×2 (07:57→20:49)
[2020-12-15] MEDS: FUROSEMIDE 40 MG TAB PO SCH (07:57)
[2020-12-15] MEDS: ATORVASTATIN 40 MG TAB PO SCH (07:57)
[2020-12-15] MEDS: SENNA 8.6 MG TAB PO SCH ×2 (07:57→20:48)
[2020-12-15] MEDS: FERROUS SULFATE 325 MG TAB PO SCH ×2 (07:57→20:49)
[2020-12-15] MEDS: DIVALPROEX DELAY RELEASE 125 MG TABEC PO SCH ×2 (07:57→20:48)
[2020-12-15] MEDS: POLYETHYLENE (MIRALAX) 17 GM PACK PO SCH (07:58)
[2020-12-15] MEDS: THIAMINE HCL 200 MG in SODIUM CHLORIDE 0.9% 50 ML IV SCH (07:58)
[2020-12-15] MEDS: METOPROLOL SUCC 50MG EXT REL TAB PO SCH (07:58)
[2020-12-15] MEDS: IRON SUCROSE 300 MG in SODIUM CHLORIDE 0.9% 250 ML IV SCH (08:25)
[2020-12-15] MEDS: HYDROCODONE/ACETAMOPHEN 5/325MG TAB PO SCH ×3 (08:44→20:47)
[2020-12-15] MEDS: CEFEPIME 2,000 MG in SYRINGE 0 ML IV SCH ×2 (11:27→20:56)
--- NOTE | 2020-12-15 12:11 | Palliative Care Progress Note ---
Date of Service December 15, 2020 Assessment & Plan (1) Palliative care encounter: Mr. Pulido was sitting in his bedside chair when I went to see him. He did not recall palliative encounter from a few days ago. Dr. Solorio did speak with his court appointed legal guardian, Gema Hogan over the phone. She actually did email palliative care stating that she was able to speak with Mahesh' sister, Dede Bacon and with an additional case loader operator at [facility] and all were in agreement for him to be officially a DNR/DNI, which has been reflected in the computer orders. At this time, it is anticipated that he will return to [facility] when medically stable with oxygen. Palliative care will sign off at this time. Should additional information or support be requested, please contact us. (2) Acute UTI: (3) Sepsis: (4) JONI (acute kidney injury): (5) Chronic hypoxemic respiratory failure: Admission and Anticipated Discharge Date Admission Date: December 10, 2020 Subjective Pt was sitting in his bedside chair during my encounter, finishing a few bites of lunch. Patient states that he feels better today. He has been stable hemodynamically See A/P for further details. Review of Systems Review of Systems: [place] Symptom Assessment Scale Pain 1/3 Dyspnea 1/3 Anxiety 0/3 Nausea 0/3 Fatigue 2/3 Drowsiness 1/3 Palliative Performance Score 40% Physical Exam Constitutional: + ill appearing; no acute distress ENMT: Mouth: + dry oral mucous membranes Respiratory: normal respiratory effort, lungs clear to auscultation Auscultation: + diminished lung sounds Gastrointestinal (Abdomen): Inspection/Auscultation: abdomen not distended Neurologic: moves all extremities and awake Psychiatric: Orientation: alert and oriented x 3 Thought Process: linear/logical thought process Results & Data ([facility]) Vital Signs (Past 12 Hours) Vital Signs Temp Pulse Resp BP BP Pulse Ox 12/15/20 11:45 36.9 C 83 18 107/65 95 12/15/20 07:13 88 18 96 12/15/20 07:00 36.9 C 91 H 20 120/71 100 12/15/20 04:00 36.9 C 95 H 20 81/43 L 99 12/15/20 02:41 91 H 20 91 PG Care Time/CCT Total # of Minutes Spent Total Time Spent with Patient: Total time spent is greater than 50% in coordination of care (as documented) at patient's floor/unit and/or counseling patient: 25 Coding Level of Care Code 01284 Subseq Hosp Care Lvl 2 Diagnoses Palliative care encounter Z51.5 Acute UTI N39.0 Sepsis A41.9; R65.20; N17.9 Acute renal failure type: unspecified Sepsis acute organ dysfunction status: with acute organ dysfunction Sepsis type: sepsis due to unspecified organism Severe sepsis acute organ dysfunction type: acute renal failure Severe sepsis shock status: without septic shock JONI (acute kidney injury) N17.9 Chronic hypoxemic respiratory failure J96.11 Time Spent (min) 25 Time Spent Midlevel Total time spent 25 minutes with > 50% of that time spent assessing the patient, confirming code status, and collaborating with IDT (1) Sepsis Acute renal failure type: unspecified Sepsis acute organ dysfunction status: with acute organ dysfunction Sepsis type: sepsis due to unspecified organism Severe sepsis acute organ dysfunction type: acute renal failure Severe sepsis shock status: without septic shock Qualified Code(s): A41.9 - Sepsis, unspeci fied organism; R65.20 - Severe sepsis without septic shock; N17.9 - Acute kidney failure, unspecified
--- NOTE | 2020-12-15 16:14 | Hospitalist Progress Note ---
Date of Service December 15, 2020 Assessment & Plan (1) Acute UTI: With dysuria, sepsis all now RESOLVED Leukocytosis was marked and is now 13k. Hypotension now resolved, is afebrile, dysuria resolved Has a h/o kidney stones but UA here neg for RBCs, no flank pain although today is describing some vague left lower back pain which I do not believe is surgical sales representative of renal colic Unfortunately Ur cx only growing moderate amounts of mixed orgs, so not sure what we're treating although is markedly better on Cefepime. - repeat Ur cx after being on therapy with abx is with no growth continue pyridium prn continue cefepime for now and convert to po cefdinir upon discharge and complete 14 day course last day would be 12/24 (2) Sepsis: With acute metabolic encephalopathy on admission exhibited by confusion, lethargy-now much improved but some residual lethargy as per terminal manager who visited on 12/14 from urinary source, has h/o multidrug resistant organisms, q sofa score is 3, did have 3.5 liters in the ER, lactate is not elevated on admission UTI tx as above Throat culture normal carson Blood cultures no growth to date Of note, does have a history of kidney stones and had a ureteral stent just removed 6 weeks ago but do not suspect recurrent stone at this time Bps stable today No other end-organ damage, renal function now normal Given intellectual disability, significant mental health issues, poor nutrition, sepsis, encephalopathy, tremor--> check B1 level, still pending, continue Thiamine in the interim (3) JONI (acute kidney injury): Cr up to 1.94 on admission, typically 1.1-1.2 Now improved with IV fluids back to normal No evidence of urinary obstruction at this time no further fluids needed (4) Generalized weakness: secondary to acute illness, sepsis, hospitalization PT/OT working with him and is significantly decreased in strength and endurance from baseline, but strong enough to stand up on his own and terminal manager said he can be managed at home with this level of strength -continue PT/OT here and at home with home health (5) Chronic hypoxemic respiratory failure: Patient sees pulmonology, he has a history of interstitial lung disease, untreated mycobacterial avium infection, 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, and chronic hypoxic respiratory failure on oxygen, typically on 2 L nasal cannula Has a long h/o chronic cough, is a mouth breather Has many adventitious sounds on auscultation but this is likely baseline given abnormal chest imaging which is chronic Severe coughing spells from previous are now improved with tid Duonebs and tessalon perles Some pulm edema on CXR from previous IVFs, was given IV lasix x 1 and now back on po lasix Improved acute component of resp failure -continue Duonebs scheduled -continue ICS (6) Anemia: Patient hemoglobin 9.0 on presentation and now 8.4 -typically runs in this range, normocytic Fe studies show Fe deficiency--> is already on po iron -started IV Venofer daily x 3 doses - B12, folate normal -consider outpt GI workup for Fe-def anemia if desired -follow CBC (7) Seizure disorder: Is a history of seizure disorder and he remains on his divalproex 375 bid no acute issues (8) Chronic diastolic CHF (congestive heart failure): With acute on chronic diastolic CHF here, with pulm edema developing overnight on 12/13 requiring IV lasix after receiving copious IVFs for sepsis Now improved back to baseline -continue aspirin, atorvastatin 40, metoprolol succinate 50 -continue daily Lasix 40 mg po (9) Hypokalemia: Replaced Resolved (10) Hypothyroidism: TSH here mildly elevated but FT4 normal continue LT4 (11) Obstructive sleep apnea: continue 2LNC continuously (12) Paranoid schizophrenia: continue home clozapine,depakote at risk for nutritional deficiencies checked B1 level and started thiamine (13) BPH (benign prostatic hyperplasia): with a h/o retention continue flomax, finasteride (14) CKD (chronic kidney disease), stage III: CKD stage 2-3 at baseline -Avoid nephrotoxins -renally dose meds when appropriate -follow BMP (15) GERD (gastroesophageal reflux disease): continue pepcid (16) Chronic pain: of the hip continue home hydrocodone bowel regimen (17) Constipation: opioid-induced, no BM for several days may be contributing to ongoing mild encephalopathy continue senna 17.2 bid Miralax prn -continue lactulose prn no BM once daily -added Dulcolax suppos SD daily prn (18) Hypertension: BPs were low from sepsis, now normal but soft continue metoprolol with parameters continue po lasix (19) DVT prophylaxis: lovenox Dispo-continued stay but can transfer to medical floor. likely for discharge tomorrow to assisted as long as they can manage PT/OT--> OT saw and demonstrates he is at significant lower level of function compared to previous, PT reports weak but can go to assisted with 24/7 care as terminal manager at bedside confident they can handle patient at this level of functioning. Would certainly need home health and PT/OT DNR-appreciate Palliative Consultation Admission and Anticipated Discharge Date Admission Date: December 10, 2020 Subjective patient laying in bed, opened his eyes to look at me when I introduced myself he then rolled his eyes like he didn't want to talk, closed his eyes and refused to open them again I asked him several questions but he refused to answer asked his RN about behavior today, she said it was similar for her, but he would interact with other people at times appreciate palliative note, he is DNR/DNI, on the chart, plan to return to personal intermediate reviewed chart, treating for UTI labs today: WBC 13, Hb 8, plts 193k, Cr 0.89, K 3.9, Mg 2.1 Review of Systems Review of Systems: Unobtainable due to cognitive status (patient refused to answer questions) Physical Exam Constitutional: well developed, well nourished and comfortable; no acute distress and + uncooperative Neck: trachea midline, no thyromegaly Respiratory: normal respiratory effort, lungs clear to auscultation Cardiovascular: RRR, no murmur, no edema Gastrointestinal (Abdomen): normal bowel sounds, soft, nontender, no hepatosplenomegaly Musculoskeletal: no cyanosis or clubbing, extremities motor strength 5/5 Results & Data Results & Data ([facility]) Vital Signs (Past 12 Hours) Vital Signs Temp Pulse Resp BP BP Pulse Ox 12/15/20 15:03 36.6 C 87 22 103/62 98 12/15/20 13:26 86 16 96 12/15/20 11:45 36.9 C 83 18 107/65 95 12/15/20 07:13 88 18 96 12/15/20 07:00 36.9 C 91 H 20 120/71 100 Laboratory Results Laboratory Results - last 24 hr 12/15/20 12/15/20 06:38 06:38 WBC 13.20 H RBC 3.01 L Hgb 8.4 L Hct 28.6 L MCV 95.0 MCH 27.9 MCHC 29.4 L RDW Std Deviation 52.2 H RDW Coeff of Nakia 15.2 H Plt Count 193 MPV 9.4 Neutrophils % (Manual) 68.7 Lymphocytes % (Manual) 14.8 Monocytes % (Manual) 3.5 Eosinophils % (Manual) 0.9 Basophils % (Manual) 1.7 Myelocytes % (Man) 10.4 Neutrophils # (Manual) 9.07 H Total Absolute Neuts 9.07 H Lymphocytes # (Manual) 1.95 Total Abs Lymphocytes 1.95 Monocytes # (Manual) 0.46 Eosinophils # (Manual) 0.12 Basophils # (Manual) 0.22 H Myelocytes # (Manual) 1.37 H Sodium 144 Potassium 3.9 Chloride 111 H Carbon Dioxide 32 Anion Gap 1.0 L BUN 19 H Creatinine 0.89 Est Cr Clr Drug Dosing 75.1 Est GFR ( Amer) 101.8 Est GFR (Non-Af Amer) 87.9 BUN/Creatinine Ratio 21.5 H Glucose 97 Calcium 9.1 Magnesium 2.1 Medications Administered Current Inpatient Medications Acetaminophen (Acetaminophen 325 Mg Tab) 650 mg PO Q4H PRN PRN Reason: Pain or Fever Stop: 01/09/21 18:46 Last Admin: 12/14/20 05:56 Dose: 650 mg Documented by: Hydrocodone Bitart/Acetaminophen (Hydrocodone/Acetamophen 5/325mg Tab) 1 tab PO TID [facility] Stop: 12/24/20 20:59 Last Admin: 12/15/20 14:11 Dose: 1 tab Documented by: Al Hydrox/Mg Hydrox/Simethicone (Aluminum/Magnesium Susp 30 Ml Udc) 15 ml PO Q4H PRN PRN Reason: Dyspepsia Stop: 01/09/21 18:46 Albuterol (Albut/Ipratrop 3mg/0.5mg Neb 3 Ml Vial) 3 ml INH TIDR GUERO Stop: 01/12/21 06:59 Last Admin: 12/15/20 13:26 Dose: 3 ml Documented by: Aspirin (Aspirin 81 Mg Ectab) 81 mg PO HS [facility]ERO Stop: 01/09/21 20:59 Last Admin: 12/14/20 20:59 Dose: 81 mg Documented by: Atorvastatin Calcium (Atorvastatin 40 Mg Tab) 40 mg PO DAILY GUERO Stop: 01/10/21 08:59 Last Admin: 12/15/20 07:57 Dose: 40 mg Documented by: Bisacodyl (Bisacodyl 10 Mg Supp) 10 mg SD DAILY PRN PRN Reason: Constipation Stop: 01/13/21 14:47 Clozapine (Clozapine 100 Mg Tab) 300 mg PO HS [facility] Stop: 01/09/21 20:59 Last Admin: 12/14/20 20:59 Dose: 300 mg Documented by: Divalproex Sodium (Divalproex Delay Release 125 Mg Tabec) 125 mg PO BID [facility] Stop: 01/09/21 20:59 Last Admin: 12/15/20 07:57 Dose: 125 mg Documented by: Divalproex Sodium (Divalproex Delay Release 250 Mg Tabec) 250 mg PO BID [facility] Stop: 01/09/21 20:59 Last Admin: 12/15/20 07:57 Dose: 250 mg Documented by: Enoxaparin Sodium (Enoxaparin Inj 40 Mg/0.4 Ml Syr) 40 mg SQ Q24H GUERO Stop: 01/09/21 19:59 Last Admin: 12/14/20 20:59 Dose: 40 mg Documented by: Famotidine (Famotidine 20 Mg Tab) 20 mg PO BID [facility] Stop: 01/09/21 20:59 Last Admin: 12/15/20 07:57 Dose: 20 mg Documented by: Ferrous Sulfate (Ferrous Sulfate 325 Mg Tab) 325 mg PO BID [facility] Stop: 01/09/21 20:59 Last Admin: 12/15/20 07:57 Dose: 325 mg Documented by: Finasteride (Finasteride 5 Mg Tab) 5 mg PO HS [facility] Stop: 01/09/21 20:59 Last Admin: 12/14/20 20:59 Dose: 5 mg Documented by: Fluticasone Furoate (Fluticasone Furoate 100mcg 14 Puffs/Inhaler) 1 puffs INH HS [facility]; Protocol Stop: 01/09/21 20:59 Last Admin: 12/14/20 21:00 Dose: 1 puffs Documented by: Furosemide (Furosemide 40 Mg Tab) 40 mg PO DAILY [facility] Stop: 01/10/21 08:59 Last Admin: 12/15/20 07:57 Dose: 40 mg Documented by: Iron Sucrose 300 mg/ Sodium (Chloride) 265 mls @ 176.667 mls/hr IV QAM [facility] Stop: 12/15/20 23:59 Last Infusion: 12/15/20 10:09 Dose: Infused Documented by: Thiamine HCl 200 mg/ Sodium (Chloride) 52 mls @ 208 mls/hr IV QAM [facility] Stop: 01/13/21 08:59 Last Infusion: 12/15/20 09:00 Dose: Infused Documented by: Cefepime HCl 2,000 mg/ Syringe 20 mls @ 5 mls/min IV Q12 [facility]; Protocol Stop: 12/21/20 10:59 Last Admin: 12/15/20 11:27 Dose: 5 mls/min Documented by: Levothyroxine Sodium (Levothyroxine Sodium 25 Mcg Tablet) 25 mcg PO DAILYBB [facility] Stop: 01/10/21 06:29 Last Admin: 12/15/20 05:55 Dose: 25 mcg Documented by: Magnesium Hydroxide (Magnesium Hydroxide Susp 30 Ml Udc) 10 ml PO DAILY PRN PRN Reason: Constipation Stop: 01/09/21 18:46 Menthol (Cough Drop (Sugar Free) Bandar 24 Bandar/1 Box) 1 bandar BUCCAL PRN PRN PRN Reason: Sore Throat Stop: 01/10/21 20:26 Metoprolol Succinate (Metoprolol Succ 50mg Ext Rel Tab) 50 mg PO [facility] Stop: 01/10/21 08:59 Last Admin: 12/15/20 07:58 Dose: 50 mg Documented by: Ondansetron HCl (Ondansetron Inj 2 Mg/Ml 2 Ml Vial) 4 mg IV Q6H PRN PRN Reason: Nausea Stop: 01/09/21 18:46 Phenazopyridine HCl (Phenazopyridine Hcl 200 Mg Tab) 200 mg PO TID PRN PRN Reason: urinary pain Stop: 01/09/21 18:46 Polyethylene Glycol (Polyethylene (Miralax) 17 Gm Pack) 17 gm PO DAILY [facility] Stop: 01/13/21 14:59 Last Admin: 12/15/20 07:58 Dose: 17 gm Documented by: Sennosides (Senna 8.6 Mg Tab) 17.2 mg PO BID [facility] Stop: 01/09/21 20:59 Last Admin: 12/15/20 07:57 Dose: 17.2 mg Documented by: Tamsulosin HCl (Tamsulosin Hcl 0.4 Mg Cap) 0.4 mg PO [facility] Stop: 01/09/21 20:59 Last Admin: 12/14/20 20:59 Dose: 0.4 mg Documented by: PG Care Time/CCT Total # of Minutes Spent Total Time Spent with Patient: Total time spent is greater than 50% in coordination of care (as documented) at patient's floor/unit and/or counseling patient: Coding Level of Care Code 00887 Subseq Hosp Care Lvl 2 Diagnoses Acute UTI N39.0 Sepsis A41.9 JONI (acute kidney injury) N17.9 Generalized weakness R53.1 Chronic hypoxemic respiratory failure J96.11 Anemia D64.9 Anemia type: unspecified type Seizure disorder G40.909 Chronic diastolic CHF (congestive heart failure) I50.32 Hypokalemia E87.6 Hypothyroidism E03.9 Hypothyroidism type: acquired Obstructive sleep apnea G47.33 Paranoid schizophrenia F20.0 BPH (benign prostatic hyperplasia) N40.0 Lower urinary tract symptom presence: symptoms absent CKD (chronic kidney disease), stage III N18.3 GERD (gastroesophageal reflux disease) K21.9 Esophagitis presence: esophagitis presence not specified Chronic pain G89.29 Constipation K59.00 Hypertension I10 Hypertension type: essential hypertension DVT prophylaxis Z29.9 (1) Anemia Anemia type: unspecified type Qualified Code(s): D64.9 - Anemia, unspecified (2) Hypothyroidism Hypothyroidism type: acquired Qualified Code(s): E03.9 - Hypothyroidism, unspecified (3) BPH (benign prostatic hyperplasia) Lower urinary tract symptom presence: symptoms absent Qualified Code(s): N40.0 - Benign prostatic hyperplasia without lower urinary tract symptoms (4) GERD (gastroesophageal reflux disease) Esophagitis presence: esophagitis presence not specified Qualified Code(s): K21.9 - Gastro-esophageal reflux disease without esophagitis (5) Hypertension Hypertension type: essential hypertension Qualified Code(s): I10 - Essential (primary) hypertension
[2020-12-15] MEDS: ASPIRIN 81 MG ECTAB PO SCH (20:48)
[2020-12-15] MEDS: TAMSULOSIN HCL 0.4 MG CAP PO SCH (20:48)
[2020-12-15] MEDS: ENOXAPARIN INJ 40 MG/0.4 ML SYR SQ SCH (20:49)
[2020-12-15] MEDS: FINASTERIDE 5 MG TAB PO SCH (20:49)
[2020-12-15] MEDS: FLUTICASONE FUROATE 100MCG 14 PUFFS/INHALER INH SCH (20:52)
[2020-12-15] MEDS: cloZAPine 100 MG TAB PO SCH (21:23)
[2020-12-16] MEDS: ACETAMINOPHEN 325 MG TAB PO PRN (02:48)
[2020-12-16] MEDS: LEVOTHYROXINE SODIUM 25 MCG TABLET PO SCH (06:12)
[2020-12-16] MEDS: ALBUT/IPRATROP 3MG/0.5MG NEB 3 ML VIAL INH SCH (07:32)
[2020-12-16] MEDS: HYDROCODONE/ACETAMOPHEN 5/325MG TAB PO SCH (08:42)
[2020-12-16] MEDS: FUROSEMIDE 40 MG TAB PO SCH (08:43)
[2020-12-16] MEDS: CEFEPIME 2,000 MG in SYRINGE 0 ML IV SCH (08:43)
[2020-12-16] MEDS: METOPROLOL SUCC 50MG EXT REL TAB PO SCH (08:44)
[2020-12-16] MEDS: SENNA 8.6 MG TAB PO SCH (08:44)
[2020-12-16] MEDS: DIVALPROEX DELAY RELEASE 250 MG TABEC PO SCH (08:44)
[2020-12-16] MEDS: FERROUS SULFATE 325 MG TAB PO SCH (08:44)
[2020-12-16] MEDS: DIVALPROEX DELAY RELEASE 125 MG TABEC PO SCH (08:44)
[2020-12-16] MEDS: FAMOTIDINE 20 MG TAB PO SCH (08:44)
[2020-12-16] MEDS: THIAMINE HCL 200 MG in SODIUM CHLORIDE 0.9% 50 ML IV SCH (08:45)
[2020-12-16] MEDS: ATORVASTATIN 40 MG TAB PO SCH (08:45)
[2020-12-16] MEDS: POLYETHYLENE (MIRALAX) 17 GM PACK PO SCH (10:34)
--- NOTE | 2020-12-16 11:19 | Discharge Summary ---
Date of Service December 16, 2020 Admission HPI Per Admitting Provider The patient presents from [facility] with a market manager. The market manager provides most of the history although the patient provides a little history. He is somewhat of a poor historian but all he is concerned about is being constipated. The patient has had flu symptoms since yesterday. He had a fever of 101.3 this morning. He c/o a sore throat. He was shivering in the exam room. He has a negative covid test. He also reported pain with urination and some body aches. He normally gets around walking but uses an electric wheelchair frequently because of some chronic pain issues. He does have history of frequent UTIs. last was a pcn, quinalone, sulfa resistant ecoli. he was given cefepime in the ER Principal Diagnosis Sepsis due to UTI Discharge Exam Constitutional well developed, well nourished and comfortable; no acute distress and + uncooperative Neck trachea midline, no thyromegaly Respiratory normal respiratory effort, lungs clear to auscultation Cardiovascular RRR, no murmur, no edema Gastrointestinal (Abdomen) normal bowel sounds, soft, nontender, no hepatosplenomegaly Musculoskeletal no cyanosis or clubbing, extremities motor strength 5/5 Skin no rashes, warm and dry Neurologic CN's II-XI intact bilaterally, moves all extremities and awake; no focal motor deficits Speech / Cognition: + abnormal speech (garbled, this is his baseline) Psychiatric Orientation: alert and oriented x 3 Discharge Data Allergies Allergy/AdvReac Type Severity Reaction Status Date / Time diltiazem Allergy Intermediate rash and Verified 12/10/20 14:28 edema fentanyl AdvReac Severe Confusion Verified 12/10/20 14:28 Consultations 12/10/20 14:31 ED Decision to Admit Stat 12/10/20 18:47 Consult Case Management - Discharge Planning Routine Consult Palliative Care Stat Hospital Course (1) Acute UTI: With dysuria, sepsis all now RESOLVED Leukocytosis was marked and is now 13k. Hypotension now resolved, is afebrile, dysuria resolved Has a h/o kidney stones but UA here neg for RBCs, no flank pain although today is describing some vague left lower back pain which I do not believe is customer contact representative of renal colic Unfortunately Ur cx only growing moderate amounts of mixed orgs, so not sure what we're treating although is markedly better on Cefepime. - repeat Ur cx after being on therapy with abx is with no growth continue pyridium prn continue cefepime for now and convert to po cefdinir upon discharge and complete 14 day course last day would be 12/24 (2) Sepsis: With acute metabolic encephalopathy on admission exhibited by confusion, lethargy-now much improved but some residual lethargy as per market manager who visited on 12/14 from urinary source, has h/o multidrug resistant organisms, q sofa score is 3, did have 3.5 liters in the ER, lactate is not elevated on admission UTI tx as above Throat culture normal carson Blood cultures no growth to date Of note, does have a history of kidney stones and had a ureteral stent just removed 6 weeks ago but do not suspect recurrent stone at this time Bps stable No other end-organ damage, renal function now normal (3) JONI (acute kidney injury): Cr up to 1.94 on admission, typically 1.1-1.2 Now improved with IV fluids back to normal No evidence of urinary obstruction at this time no further fluids needed (4) Generalized weakness: secondary to acute illness, sepsis, hospitalization PT/OT working with him and is significantly decreased in strength and endurance from baseline, but strong enough to stand up on his own and market manager said he can be managed at home with this level of strength -continue PT/OT here and at home with home health (5) Chronic hypoxemic respiratory failure: Patient sees pulmonology, he has a history of interstitial lung disease, untreated mycobacterial avium infection, 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, and chronic hypoxic respiratory failure on oxygen, typically on 2 L nasal cannula Has a long h/o chronic cough, is a mouth breather Has many adventitious sounds on auscultation but this is likely baseline given abnormal chest imaging which is chronic Severe coughing spells from previous are now improved with tid Duonebs and tessalon perles Some pulm edema on CXR from previous IVFs, was given IV lasix x 1 and now back on po lasix Improved acute component of resp failure -continue Duonebs scheduled -continue ICS (6) Anemia: Patient hemoglobin 9.0 on presentation and now 8.4 -typically runs in this range, normocytic Fe studies show Fe deficiency--> is already on po iron -started IV Venofer daily x 3 doses - B12, folate normal -consider outpt GI workup for Fe-def anemia if desired -follow CBC (7) Seizure disorder: Is a history of seizure disorder and he remains on his divalproex 375 bid no acute issues (8) Chronic diastolic CHF (congestive heart failure): With acute on chronic diastolic CHF here, with pulm edema developing overnight on 12/13 requiring IV lasix after receiving copious IVFs for sepsis Now improved back to baseline -continue aspirin, atorvastatin 40, metoprolol succinate 50 -continue daily Lasix 40 mg po (9) Hypokalemia: Replaced Resolved (10) Hypothyroidism: TSH here mildly elevated but FT4 normal continue LT4 (11) Obstructive sleep apnea: continue 2LNC continuously (12) Paranoid schizophrenia: continue home clozapine,depakote at risk for nutritional deficiencies checked B1 level and started thiamine (13) BPH (benign prostatic hyperplasia): with a h/o retention continue flomax, finasteride (14) CKD (chronic kidney disease), stage III: CKD stage 2-3 at baseline -Avoid nephrotoxins -renally dose meds when appropriate -follow BMP (15) GERD (gastroesophageal reflux disease): continue pepcid (16) Chronic pain: of the hip continue home hydrocodone bowel regimen (17) Constipation: opioid-induced, no BM for several days may be contributing to ongoing mild encephalopathy continue senna 17.2 bid Miralax prn -continue lactulose prn no BM once daily -added Dulcolax suppos HI daily prn (18) Hypertension: BPs were low from sepsis, now normal but soft continue metoprolol with parameters continue po lasix (19) DVT prophylaxis: lovenox Dispo-continued stay but can transfer to medical floor. likely for discharge tomorrow to [facility] as long as they can manage PT/OT--> OT saw and demonstrates he is at significant lower level of function compared to previous, PT reports weak but can go to [facility] with 24/7 care as market manager at bedside confident they can handle patient at this level of functioning. Would certainly need home health and PT/OT DNR-appreciate Palliative Consultation Total Time Total Time Spent Total Time Spent (In Minutes): 31 Total Time Includes: Examination of the Patient, Discharge Planning, Medication Reconciliation and Communication With Other Providers (palliative care, case management) Discharge Plan Discharge Items [facility] Disposition[facility] Reason For Visit: Spesis urine source Discharge Diagnosis: Sepsis, suspected to be UTI Chronic hypoxia Condition on Discharge: Fair Goals: improve strength and mobility complete course of Cefdinir Activity: Resume your previous activity Weightbearing: Full weightbearing Non-emergency contact: Primary Care Provider Call non-emergency contact if: you have any medication questions and your symptoms worsen Follow-up/Referrals: Jong Weir MD [Primary Care Provider] - 12/23/20 10:15 am (You have an appt with Kathrine Fernández on 12/23 at 1015. Please arrive 15 minutes prior to your appt. It is important that you keep this appt. If this appt does not fit your schedule please call [phone].) Diet: Regular Addtl Attending Provider Instructions: Medications: no changes to prior medications - CEFDINIR: continue until 12/24 for full 14 days of treatment, complicated UTI in male Sepsis, likely source is UTI, responded well to Cefepime Generalized weakness, lethargy, will need to continue with PT/OT at [facility] Goals of care, palliative care involved in his care during this admission, discussed with his sister, care givers, changes to DNR/DNI see discharge summary for details of admission Pending Studies at Discharge: No Stand-Alone Forms: [employer] Smoking Cessation Skilled Items Patient informed of condition?: Yes DNR: Yes Discharge Level of Care: Other Communicable Disease: No Discharge Prognosis: Stable Lines: None Urinary Catheter: No Medications and DC Order Prescriptions: New cefdinir 300 mg capsule 300 mg PO BID 8 Days Qty: 16 RF: 0 Continued atorvastatin 40 mg Tablet 40 mg PO DAILY RF: 0 sennosides 8.6 mg Tablet 17.2 mg PO BID RF: 0 ipratropium-albuterol 0.5 mg-3 mg(2.5 mg base)/3 mL Solution For Nebulization 3 ml INHALATION Q4H PRN (Reason: Shortness Of Breath) RF: 0 divalproex 250 mg tablet,delayed release (DR/EC) 250 mg PO BID RF: 0 polyethylene glycol 3350 17 gram Powder In Packet 17 g PO DAILY PRN (Reason: Constipation) RF: 0 clozapine 100 mg tablet 300 mg PO HS RF: 0 metoprolol succinate 50 mg Tablet Extended Release 24 Hr 50 mg PO QAM RF: 0 hydrocodone-acetaminophen 5-325 mg tablet 1 tab PO TID RF: 0 phenazopyridine 200 mg Tablet 200 mg PO TID PRN (Reason: urinary pain) RF: 0 cyanocobalamin (vitamin B-12) 1,000 mcg Tablet 1,000 mcg PO DAILY RF: 0 aspirin 81 mg tablet,delayed release (DR/EC) 81 mg PO HS RF: 0 levothyroxine 25 mcg Tablet 25 mcg PO DAILY RF: 0 famotidine 20 mg Tablet 20 mg PO BID RF: 0 magnesium hydroxide [Milk of Magnesia] 400 mg/5 mL Suspension 0 mg PO DAILY PRN (Reason: Constipation) RF: 0 tamsulosin 0.4 mg Capsule 0.4 mg PO HS RF: 0 ferrous sulfate 325 mg (65 mg iron) Tablet 325 mg PO BID RF: 0 divalproex 125 mg tablet,delayed release (DR/EC) 125 mg PO BID RF: 0 furosemide 20 mg Tablet 40 mg PO DAILY RF: 0 acetaminophen 500 mg Capsule 500 mg PO Q6H PRN (Reason: Pain) RF: 0 finasteride 5 mg tablet 5 mg PO HS RF: 0 Asmanex Twisthaler 220 mcg/ actuation (30) aerosol powdr breath activated 220 mcg INHALATION HS RF: 0 cholecalciferol (vitamin D3) [Vitamin D3] 50 mcg (2,000 unit) Capsule 50 mcg PO DAILY RF: 0 Discharge Orders: Discharge Order (Routine); Ordered 12/16/20 Ordered By: Ozzie Montilla Admission Data Admit Date/Time: 12/10/20 16:14 Attending Provider: Ozzie Montilla Admit Provider: Roldan Jo Primary Care Provider: Jong Weir Other Providers: Roldan Jo ; Corinne Solorio Other Interventions: Discharge Summary Assessment (RN) Last Done: 12/16/20 11:30 Coding Level of Care Code D/C Day Management >30 mins Diagnoses Acute UTI N39.0 Sepsis A41.9 JONI (acute kidney injury) N17.9 Generalized weakness R53.1 Chronic hypoxemic respiratory failure J96.11 Anemia D64.9 Anemia type: unspecified type Seizure disorder G40.909 Chronic diastolic CHF (congestive heart failure) I50.32 Hypokalemia E87.6 Hypothyroidism E03.9 Hypothyroidism type: acquired Obstructive sleep apnea G47.33 Paranoid schizophrenia F20.0 BPH (benign prostatic hyperplasia) N40.0 Lower urinary tract symptom presence: symptoms absent CKD (chronic kidney disease), stage III N18.3 GERD (gastroesophageal reflux disease) K21.9 Esophagitis presence: esophagitis presence not specified Chronic pain G89.29 Constipation K59.00 Hypertension I10 Hypertension type: essential hypertension DVT prophylaxis Z29.9
== END 2020-12-16 13:16 | disposition home or self-care (01) | DRG 871 ==
LOC: ED 11:16 → 2W 16:14 → SUATTDRO 16:14 → 2W 17:44

== ENCOUNTER 2021-06-09 15:39 | Observation (INO) ==
[2021-06-09] MEDS ORDERED: ONDANSETRON INJ 2 MG/ML 2 ML VIAL IV STA (16:36)
[2021-06-09] MEDS ORDERED: SODIUM CHLORIDE 0.9% 1000ML 1,000 ML IV ONE (16:36)
--- NOTE | 2021-06-09 16:38 | Emergency Department Note ---
Impression & Plan SBO (small bowel obstruction), Leukocytosis, Abdominal pain, Vomiting ED Provider Note NAME: JOSIE DO AGE: 70 SEX: M : 1950 ARRIVES VIA: Walk-In INFORMANT: Patient ED PROVIDER(S): Aly Martínez DO CHIEF COMPLAINT: Vomiting HPI: Patient is a 70-year-old male who presents to the ER for abdominal pain. This is located periumbilically. Start around 10-10:30 this morning. Associated with 5 episodes of vomiting. Denies any dysuria, urgency, or fr equency. No chest pain or shortness of breath. No fevers. No other exacerbating or remitting factors other than when eating or drinking. Chronically on 2 L nasal cannula. Patient notes that this did start after drinking coffee and 2 donuts. ROS: See above HPI for pertinent positives & negatives. A total of 10 systems reviewed and were otherwise negative. PAST MEDICAL HISTORY:See Below PAST SURGICAL HISTORY:See Below FAMILY HISTORY:See Below SOCIAL HISTORY:See Below HOME MEDICATIONS:See Below ALLERGIES:See Below VITALS:See Below PHYSICAL EXAMINATION: GENERAL: Sitting up in wheelchair, no acute distress, on 2 L nasal cannula EYE EXAM: normal conjunctiva. OROPHARYNX: no exudate, no erythema, lips, buccal mucosa, and tongue normal and mucous membranes are moist NECK: supple, no nuchal rigidity, no adenopathy, non-tender LUNGS: Clear to auscultation. Normal chest wall mechanics HEART: no murmurs, S1 normal and S2 normal ABDOMEN: abdomen soft, faint tenderness periumbilically, normo-active bowel sounds, no masses, no rebound or guarding. UPPER EXTREMITIES: upper extremities are grossly normal. LOWER EXTREMITIES: No pitting edema. NEURO EXAM: Awake alert following commands at baseline moving all extremities MEDICAL DECISION MAKING: Patient is a 70-year-old male who presents the ER for 5 episodes of vomiting. Chronically on nasal cannula. IV was established blood work was obtained. Labs show leukocytosis of 18,000. Mild anemia 12.2. BMP with a slightly elevated creatinine at 1.5. LFTs bilirubin was unremarkable. Lipase was normal. UA was contaminated with multiple epithelial cells. Covid was negative. CT abdomen pelvis shows a small bowel obstruction. This was discussed and reviewed with Dr. Javi Castro. The patient on reevaluation had no pain. There is no vomiting. Discussed with the hospitalist for further evaluation. On reevaluation after the Zofran he notes his pain completely resolved and does not feel sick to his stomach. Triage Nursing notes reviewed. Limited review of prior medical records performed Vital Signs: reviewed and remarkable for Tachy Differential diagnosis: Differential diagnoses includes but is not limited to gastritis, peptic ulcer disease, GERD, gallbladder disease, pancreatitis, small bowel obstruction, acute coronary syndrome, pericarditis, ischemic bowel, irritable bowel disease, irritable bowel syndrome, appendicitis, diverticulitis, malignancy, hernia, urinary tract infection, torsion, perforation, trauma, infectious. ER treatment provided: See below Diagnostics interpreted by me: Cardiac Monitoring: An order was placed for continuous cardiac monitoring. The monitor shows a rate of 90 with sinus rhythm. Laboratory studies: As stated above and show below. 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 Per [facility] cardio, "presumed CAD" based on coronary artery calcifications noted on imaging Cavitary lesion of lung Chronic hypoxemic respiratory failure Chronic kidney disease (CKD), stage III (moderate) Chronic pain Dysphagia Edema GERD (gastroesophageal reflux disease) Hiatal hernia Hypercholesterolemia Hypertension Hypothyroidism Inappropriate ADH syndrome Interstitial lung disease On 2L O2 continuous via NC Nontuberculous mycobacterial disease of lung Following with [facility] pulmonary ([place]) Obstructive sleep apnea On 2L O2 continuous via NC Paranoid schizophrenia Seizure disorder Remote hx several years ago, no seizures since anticonvulsant initiation per [facility] 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 No mention of LVOT obstruction, only mild concentric LVH. Echo was reviewed by cardiology 12/2019, felt no further cardiac workup needed. Surgical History History of breast surgery Possible History of bronchoscopy History of cardiac cath Remote > no stents History of cataract surgery R/L History of colonoscopy History of cystoscopy Left cystoscopy, ureteronephroscopy, retropyelogram (10/06/20): LMA#5 at [facility] Family History Father Prostate cancer Mother Lung cancer Denies family history of Breast cancer Colorectal cancer Social History Smoking Status: Former smoker Tobacco Type: Cigarettes Age Quit Using Tobacco: 38; Second Hand Exposure: No; Hx Alcohol Use: No Hx Substance Use: No Preferred Language: [place] Communication Ability: Impaired Visual Impairment: No Limitations Hearing Ability: Normal Production Lead Required: No Beliefs That Will Affect Care: None marital status: Single Current Living Situation: Other Current Living Situation Comment: [facility] current occupational status: retired How many Children do You have: 0 Feels Safe at Home: Yes Seatbelt Use: always Assistive Devices: Oxygen - Continuous Allergies Allergies Allergy/AdvReac Type Severity Reaction Status Date / Time diltiazem Allergy Intermediate rash and Verified 06/09/21 17:32 edema fentanyl AdvReac Severe Confusion Verified 06/09/21 17:32 Home Meds Home Medications Medication Instructions Recorded Confirmed acetaminophen 500 mg capsule 500 mg PO Q6 PRN 12/10/20 06/09/21 aspirin 81 mg tablet,delayed 81 mg PO HS 12/10/20 06/09/21 release atorvastatin 40 mg tablet 40 mg PO QPM 12/10/20 06/09/21 cholecalciferol (vitamin D3) 50 50 mcg PO QPM 12/10/20 06/09/21 mcg (2,000 unit) capsule (Vitamin D3) clozapine 100 mg tablet 300 mg PO HS 12/10/20 06/09/21 cyanocobalamin (vitamin B-12) 1,000 mcg PO QPM 12/10/20 06/09/21 1,000 mcg tablet divalproex 125 mg tablet,delayed 125 mg PO BID 12/10/20 06/09/21 release divalproex 250 mg tablet,delayed 250 mg PO BID 12/10/20 06/09/21 release furosemide 20 mg tablet 20 mg PO BID 12/10/20 06/09/21 magnesium hydroxide 400 mg/5 mL 30 ml PO UD PRN 12/10/20 06/09/21 oral suspension (Milk of Magnesia) polyethylene glycol 3350 17 gram 17 g PO BID PRN 12/10/20 06/09/21 oral powder packet Previous Rx's Medication Instructions Recorded finasteride 5 mg tablet 5 mg PO HS #90 tab 01/02/21 tamsulosin 0.4 mg capsule 0.4 mg PO HS #90 cap 01/08/21 sennosides 8.6 mg tablet 17.2 mg PO BID #90 tab 03/06/21 mometasone (Asmanex Twisthaler) 220 mcg INHALATION HS #1 ea 03/20/21 metoprolol succinate 50 mg 50 mg PO QAM #90 tab 03/27/21 tablet,extended release 24 hr CPAP Machine See Rx Instructions .ROUTE 04/01/21 .COMPLEX #1 ea phenazopyridine 200 mg tablet 200 mg PO Q8H PRN #10 tab 04/06/21 (Pyridium) ipratropium 0.5 mg-albuterol 3 mg 3 ml INHALATION Q4H PRN #180 ml 04/17/21 (2.5 mg base)/3 mL nebulization soln ferrous sulfate 325 mg (65 mg 325 mg PO BID #180 tab 05/01/21 iron) tablet hydrocodone 5 mg-acetaminophen 325 1 tab PO TID #90 tab 05/29/21 mg tablet levothyroxine 50 mcg tablet 50 mcg PO DAILY #30 tab 06/04/21 famotidine 20 mg tablet 20 mg PO BID #60 tab 06/05/21 Results & Data (ED) Vital Signs Vital Signs - 24 hr 06/09/21 16:06 06/09/21 17:04 06/09/21 19:00 Temperature 36.0 C L Temperature Source Temporal Artery Scan Pulse Rate 98 H Pulse Rate [Apical] 92 H 95 H Pulse Rhythm [Apical] Regular Respiratory Rate 20 18 16 Respiratory Effort / Characteristics Non-Labored Non-Labored Respiratory Depth Normal Normal Normal Blood Pressure 107/66 Blood Pressure [Right Arm] 116/58 L 115/76 Blood Pressure Mean 79 Blood Pressure Mean [Right Arm] 77 89 Pulse Oximetry 99 100 97 Oxygen Delivery Method Nasal Cannula Nasal Cannula Nasal Cannula Oxygen Flow Rate 2 2 2 Sepsis Recent Fever Within 48 Hours No Sepsis New/Unexplained Change in Mental Status N/A Sepsis Action Taken by Nursing No Action Required Laboratory Data Result diagrams: 06/09/21 17:01 06/09/21 17:01 Lab Results 06/09/21 06/09/21 06/09/21 Range/Units 17:01 17:01 18:10 WBC 18.41 H (4.8-10.8) K/uL RBC 4.02 L (4.7-6.1) M/uL Hgb 12.2 L (14.0-18.0) g/dL Hct 39.1 L (42-52) % MCV 97.3 (80-100) fL MCH 30.3 (25-34) pg MCHC 31.2 L (32-36) g/dL RDW Std Deviation 49.3 H (36.4-46.3) fL RDW Coeff of Nakia 13.7 (11.5-14.5) % Plt Count 192 (130-400) K/uL MPV 10.3 (7.4-10.4) fL Immature Gran % (Auto) 1.0 % Neut % (Auto) 78.5 % Lymph % (Auto) 9.9 % Gates % (Auto) 9.9 % Eos % (Auto) 0.6 % Baso % (Auto) 0.1 % Neut # (Auto) 14.45 H (1.4-6.5) K/uL Lymph # (Auto) 1.82 (1.2-3.4) K/uL Gates # (Auto) 1.82 H (0.11-0.59) K/uL Eos # (Auto) 0.11 (0-0.5) K/uL Baso # (Auto) 0.02 (0-0.2) K/uL Immature Gran # (Auto) 0.19 H (0.00-0.02) K/uL Sodium 135 L (136-145) mmol/L Potassium 5.0 (3.5-5.1) mmol/L Chloride 103 (98-107) mmol/L Carbon Dioxide 26 (21-32) mmol/L Anion Gap 6.0 (3-11) BUN 42 H (7-18) mg/dl Creatinine 1.52 H (0.6-1.4) mg/dl Est Cr Clr Drug Dosing Not Reportable Est GFR ( Amer) 53.8 ml/min Est GFR (Non-Af Amer) 46.4 ml/min BUN/Creatinine Ratio 27.4 H (10-20) Glucose 114 H (70-99) mg/dl Calcium 9.3 (8.5-10.1) mg/dl Total Bilirubin 0.4 (0.2-1) mg/dl AST 19 (15-37) U/L ALT 16 (12-78) U/L Alkaline Phosphatase 93 (45-117) U/L Total Protein 8.9 H (6.4-8.2) gm/dl Albumin 3.3 L (3.4-5.0) gm/dl Globulin 5.6 H (2.5-4.0) gm/dl Albumin/Globulin Ratio 0.6 L (0.9-2) Lipase 188 (73-393) U/L Urine Color Yellow Urine Appearance Clear (Clear) Urine pH 5.5 (4.5-7.5) Ur Specific [place] 1.016 (1.000-1.030) Urine Protein Negative (Negative) Urine Glucose (UA) Negative (Negative) Urine Ketones Trace H (Negative) Urine Blood Negative (Negative) Urine Nitrite Negative (Negative) Urine Bilirubin Negative (Negative) Urine Urobilinogen Negative (Negative) Ur Leukocyte Esterase Trace H (Negative) Urine WBC (Auto) 1-5 (0-5) /hpf Urine RBC (Auto) 5-10 H (0-4) /hpf U Hyaline Cast (Auto) 10-30 H (0-5) /lpf U Epithel Cells (Auto) >30 H (0-5) /lpf Urine Bacteria (Auto) Negative (Negative) COVID-19 Eval Order SARS-CoV-2 (PCR) (Negative) 06/09/21 06/09/21 Range/Units 20:25 20:25 WBC (4.8-10.8) K/uL RBC (4.7-6.1) M/uL Hgb (14.0-18.0) g/dL Hct (42-52) % MCV (80-100) fL MCH (25-34) pg MCHC (32-36) g/dL RDW Std Deviation (36.4-46.3) fL RDW Coeff of Nakia (11.5-14.5) % Plt Count (130-400) K/uL MPV (7.4-10.4) fL Immature Gran % (Auto) % Neut % (Auto) % Lymph % (Auto) % Gates % (Auto) % Eos % (Auto) % Baso % (Auto) % Neut # (Auto) (1.4-6.5) K/uL Lymph # (Auto) (1.2-3.4) K/uL Gates # (Auto) (0.11-0.59) K/uL Eos # (Auto) (0-0.5) K/uL Baso # (Auto) (0-0.2) K/uL Immature Gran # (Auto) (0.00-0.02) K/uL Sodium (136-145) mmol/L Potassium (3.5-5.1) mmol/L Chloride (98-107) mmol/L Carbon Dioxide (21-32) mmol/L Anion Gap (3-11) BUN (7-18) mg/dl Creatinine (0.6-1.4) mg/dl Est Cr Clr Drug Dosing Est GFR ( Amer) ml/min Est GFR (Non-Af Amer) ml/min BUN/Creatinine Ratio (10-20) Glucose (70-99) mg/dl Calcium (8.5-10.1) mg/dl Total Bilirubin (0.2-1) mg/dl AST (15-37) U/L ALT (12-78) U/L Alkaline Phosphatase (45-117) U/L Total Protein (6.4-8.2) gm/dl Albumin (3.4-5.0) gm/dl Globulin (2.5-4.0) gm/dl Albumin/Globulin Ratio (0.9-2) Lipase (73-393) U/L Urine Color Urine Appearance (Clear) Urine pH (4.5-7.5) Ur Specific [place] (1.000-1.030) Urine Protein (Negative) Urine Glucose (UA) (Negative) Urine Ketones (Negative) Urine Blood (Negative) Urine Nitrite (Negative) Urine Bilirubin (Negative) Urine Urobilinogen (Negative) Ur Leukocyte Esterase (Negative) Urine WBC (Auto) (0-5) /hpf Urine RBC (Auto) (0-4) /hpf U Hyaline Cast (Auto) (0-5) /lpf U Epithel Cells (Auto) (0-5) /lpf Urine Bacteria (Auto) (Negative) COVID-19 Eval Order Covid19 at [facility] SARS-CoV-2 (PCR) NEGATIVE (Negative) Administered Medications Sodium Chloride (Nss 1000ml) 1,000 mls @ 100 mls/hr IV .Q10H GUERO Stop: 07/09/21 23:01 Last Admin: 06/09/21 23:31 Dose: 100 mls/hr Documented by: [id number] Discontinued Medications Sodium Chloride (Nss 1000ml) 1,000 mls @ 999 mls/hr IV .Q1H1M ONE Stop: 06/09/21 17:36 Last Infusion: 06/09/21 18:21 Dose: 0 mls/hr Documented by: [id number] Admin: 06/09/21 17:08 Dose: 999 mls/hr Documented by: [id number] Ioversol (Optiray 320 100ml) 90 ml IV ONCE ONE Stop: 06/09/21 18:40 Last Admin: 06/09/21 18:39 Dose: 90 ml Documented by: [id number] Ondansetron HCl (Ondansetron Inj 2 Mg/Ml 2 Ml Vial) 4 mg IV NOW STA Stop: 06/09/21 16:37 Last Admin: 06/09/21 17:08 Dose: 4 mg Documented by: [id number] Imaging Data Radiologist's Impression: Abdomen/Pelvis CT 06/09/21 16:36 CT abd pelvis IV con only CLINICAL HISTORY: mid abd pain COMPARISON STUDY: February 18, 2021 TECHNIQUE: A dose lowering technique was utilized adhering to the principles of ALARA. CT DOSE: 1009.84 mGy.cm FINDINGS: Lower chest: Limited evaluation of lung bases patchy areas of peripheral architectural distortion, septal thickening and mild honeycombing which was also seen on prior study and likely representing interstitial lung disease. Trace right pleural effusion. Liver: The contrast-enhanced liver is normal in size, contour, and attenuation. There is no intrahepatic biliary ductal dilatation. The hepatic veins and portal veins are patent. Gallbladder: Unremarkable. Spleen: Normal in size and attenuation. Pancreas: Unremarkable. Adrenal glands: Unremarkable. Kidneys: There is symmetric renal cortical enhancement. The kidneys are normal in size without hydronephrosis.Multiple bilateral cortical cysts appear more conspicuous on current exam due to intravenous contrast administration, largest is measuring 2.3 x 2.0 cm and seen on the right. Few calcifications are seen within the right and left renal pelvises, likely vascular. Pelvic viscera: Urinary bladder is adequately filled with urine. Prostate gland is not enlarged. Bowel: Loops of small bowel are fluid-filled and within upper limits of normal, with prominent mucosal enhancement. Focal area of decreased in caliber is seen within terminal ilium likely small bowel obstruction. Peritoneum: There is no intraperitoneal free air or abdominal ascites. Vasculature: Abdominal aorta is normal in caliber with scattered calcifications of its wall. Extensive calcifications are seen within bilateral common iliac arteries and might associated with its stenosis. Adenopathy: Few small retroperitoneal lymph nodes are seen, measuring less than 1 cm in short axis and nonpathological by CT size criteria. Skeletal structures: Multilevel degenerative changes of the spine. Severe de generative changes and deformity of bilateral hip joints are again seen. Please correlate above-mentioned findings was prior history. IMPRESSION: 1. Small bowel obstruction. Report will be sent to emergency Department. 2. Bilateral cortical renal cysts. 3. Vascular calcifications. 4. Interstitial lung disease. 5. The rest of findings as above. ACT 112: Negative or not required by law. The above report was generated using voice recognition software. It may contain grammatical, syntax or spelling errors. Electronically signed by: Jasmin Briones DO 06/09/2021 7:31 PM Discharge Plan Visit Data Chief Complaint: Vomiting Stated Complaint: vomiting ED Provider: Aly Martínez Discharge Problem: SBO (small bowel obstruction), Leukocytosis, Abdominal pain, Vomiting Patient Disposition: Admitted As Inpatient Discharge Instructions Interventions: ED Discharge Assessment Last Done: 06/09/21 22:43 Discharge Problem: Leukocytosis Qualifiers: Leukocytosis type: unspecified Qualified Code(s): D72.829 - Elevated white blood cell count, unspecified Abdominal pain Qualifiers: Abdominal location: unspecified location Qualified Code(s): R10.9 - Unspecified abdominal pain Vomiting Qualifiers: Vomiting type: unspecified Vomiting Intractability: unspecified Nausea presence: unspecified Qualified Code(s): R11.10 - Vomiting, unspecified
[2021-06-09 17:09] LABS: Basophils # (auto) 0.02 K/uL (0-0.2); Basophils % (auto) 0.1 %; Eosinophils # (auto) 0.11 K/uL (0-0.5); Eosinophils % (auto) 0.6 %; Hematocrit (blood only) 39.1 % (42-52); Hemoglobin 12.2 g/dL (14.0-18.0); Immature Granulocytes # (auto) 0.19 K/uL (0.00-0.02); Lymphocytes # (auto) 1.82 K/uL (1.2-3.4); Lymphocytes % (auto) 9.9 %; Mean Corpuscular Hemoglobin 30.3 pg (25-34); Mean Corpuscular Hgb Conc 31.2 g/dL (32-36); Mean Corpuscular Volume 97.3 fL (80-100); Mean Platelet Volume 10.3 fL (7.4-10.4); Monocytes # (auto) 1.82 K/uL (0.11-0.59); Monocytes % (auto) 9.9 %; Neutrophils # (auto) 14.45 K/uL (1.4-6.5); Neutrophils % (auto) 78.5 %; Platelet Count 192 K/uL (130-400); RDW Coefficient of Variation 13.7 % (11.5-14.5); RDW Standard Deviation 49.3 fL (36.4-46.3); Red Blood Count 4.02 M/uL (4.7-6.1); White Blood Count 18.41 K/uL (4.8-10.8)
[2021-06-09 17:29] LABS: Alanine Aminotransferase 16 U/L (12-78); Albumin Level 3.3 gm/dl (3.4-5.0); Aspartate Aminotransferase 19 U/L (15-37); BUN Creatinine Ratio 27.4 (10-20); Blood Urea Nitrogen 42 mg/dl (7-18); Calcium 9.3 mg/dl (8.5-10.1); Carbon Dioxide 26 mmol/L (21-32); Chloride 103 mmol/L (98-107); Est GFR (African American) 53.8 ml/min; Est GFR (Non-African American) 46.4 ml/min; Glucose 114 mg/dl (70-99); Lipase 188 U/L (73-393); Sodium 135 mmol/L (136-145)
[2021-06-09 17:32] LABS: Albumin Globulin Ratio 0.6 (0.9-2); Alkaline Phosphatase 93 U/L (45-117); Bilirubin,Total 0.4 mg/dl (0.2-1); Globulin 5.6 gm/dl (2.5-4.0); Total Protein 8.9 gm/dl (6.4-8.2)
[2021-06-09 18:31] LABS: Appearance Urine Clear (Clear); Bacteria Urine Automated Negative (Negative); Bilirubin Urine Negative (Negative); Blood Urine Negative (Negative); Color Urine Yellow; Epithelial Cell Urine Auto >30 /lpf (0-5); Glucose Urine UA Negative (Negative); Ketones Urine Trace (Negative); Leukocyte Esterase Urine Trace (Negative); Nitrite Urine Negative (Negative); Protein Urine Negative (Negative); Specific Gravity Urine 1.016 (1.000-1.030); Urobilinogen Urine Negative (Negative); pH Urine 5.5 (4.5-7.5)
[2021-06-09] MEDS ORDERED: OPTIRAY 320 100ml IV ONE (18:39)
--- NOTE | 2021-06-09 19:32 | CT Scan Report ---
CT abd pelvis IV con only CLINICAL HISTORY: mid abd pain COMPARISON STUDY: February 18, 2021 TECHNIQUE: A dose lowering technique was utilized adhering to the principles of ALARA. CT DOSE: 1009.84 mGy.cm FINDINGS: Lower chest: Limited evaluation of lung bases patchy areas of peripheral architectural distortion, se ptal thickening and mild honeycombing which was also seen on prior study and likely representing inte rstitial lung disease. Trace right pleural effusion. Liver: The contrast-enhanced liver is normal in size, contour, and attenuation. There is no intrahepa tic biliary ductal dilatation. The hepatic veins and portal veins are patent. Gallbladder: Unremarkable. Spleen: Normal in size and attenuation. Pancreas: Unremarkable. Adrenal glands: Unremarkable. Kidneys: There is symmetric renal cortical enhancement. The kidneys are normal in size without hydron ephrosis.Multiple bilateral cortical cysts appear more conspicuous on current exam due to intravenous contrast administration, largest is measuring 2.3 x 2.0 cm and seen on the right. Few calcifications are seen within the right and left renal pelvises, likely vascular. Pelvic viscera: Urinary bladder is adequately filled with urine. Prostate gland is not enlarged. Bowel: Loops of small bowel are fluid-filled and within upper limits of normal, with prominent mucosa l enhancement. Focal area of decreased in caliber is seen within terminal ilium likely small bowel o bstruction. Peritoneum: There is no intraperitoneal free air or abdominal ascites. Vasculature: Abdominal aorta is normal in caliber with scattered calcifications of its wall. Extensiv e calcifications are seen within bilateral common iliac arteries and might associated with its stenos is. Adenopathy: Few small retroperitoneal lymph nodes are seen, measuring less than 1 cm in short axis an d nonpathological by CT size criteria. Skeletal structures: Multilevel degenerative changes of the spine. Severe degenerative changes and de formity of bilateral hip joints are again seen. Please correlate above-mentioned findings was prior h istory. IMPRESSION: 1. Small bowel obstruction. Report will be sent to emergency Department. 2. Bilateral cortical renal cysts. 3. Vascular calcifications. 4. Interstitial lung disease. 5. The rest of findings as above. ACT 112: Negative or not required by law. The above report was generated using voice recognition software. It may contain grammatical, syntax o r spelling errors. Electronically signed by: Jasmin Briones DO 06/09/2021 7:31 PM
--- NOTE | 2021-06-09 20:43 | History & Physical Report ---
Date of Service June 09, 2021 Assessment & Plan (1) Small bowel obstruction: Plan: Mr. Pulido is a 70 yo gentleman who presented with recurrent emesis and abdominal pain, found to have a small bowel obstruction on cat scan. - Etiology: likely functional > mechanical, as patient has no prior hx of abdominal surgeries (and therefore no risk for adhesions), no masses, hernias or strictures noted on CT scan - no suspicion for small bowel compromise - will hold off on NG tube placement, as patient has not vomited in > [address] if vomiting recurs - NPO, mIVF for hydration. - Given patient already has an appetite, trial of clear liquids tomorrow for breakfast. If recurrent nausea/vomiting or abdominal pain, return to NPO - Tylenol prn for pain, zofran prn for nausea - KUB ordered for the AM - surgery consult not placed as obstruction appears to be mild (2) Leukocytosis: Plan: - WBC elevated to 18 - suspect reactive to emesis rather than from infection, as patient is afebrile, UA is not suspicious for infection. - trend CBC (3) Anemia: Plan: - Hgb 12.2, MCV 97 - normocytic anemia - patient did report "dark colored" emesis, but no blood streaking or coffee ground consistency. Low suspicion for active bleeding - hold home oral iron supplement while NPO - trend CBC (4) Chronic diastolic CHF (congestive heart failure): Plan: - convert home oral lasix to IV while NPO (ie 20mg PO to 10mg IV) - hold home metoprolol while NPO (5) Sleep apnea: Plan: - may use home CPAP qhs (6) CKD (chronic kidney disease), stage III: Plan: - baseline Cr ~ 1,2 - creatinine on admission was 1.5, BUN at 42 - suspect pre-renal origin of acute worsening of chronic kidney disease given history of vomiting and reduced PO intake - IVF as above - trend BMP (7) Hypothyroidism: Plan: - hold home levothyroxine while NPO (8) CAD in [place] artery: Plan: - hold home ASA and atorvastatin while NPO (9) GERD (gastroesophageal reflux disease): Plan: - hold home famotidine while npo (10) BPH (benign prostatic hyperplasia): Plan: -hold home flomax while NPO (11) Seizure disorder: Plan: - continue home divalproex DVT ppx: will hold off on initiation of chemo given report of possible dark emesis, short anticipated hospital stay Diet: NPO, Trial of clear liquids in am Code: DNR/DNI, I discussed with patient Dispo: Med/surg History of Present Illness Primary Care Provider: Jong Weir MD Mr. Pulido is a 70 yo gentleman who is a resident at [facility] who was brought in for evaluation of vomiting and abdominal pain. After drinking a cup of coffee and eating two donuts for breakfast, Mr. Pulido vomited. He report 5 total episodes of emesis through the mid afternoon; last episode occurred at ~ 2pm. He endorsed associated periumbilical pain at the time of the vomiting. When asked about his vomitus, he reported it was dark in color and sometimes green. The geriatric case manager from [facility] who accompanies him to the ED was not present for the vomiting episodes, and thus cannot corroborate the vomitus color/composition. In the days prior to admission, Mr. Pulido states that he had been in his usual state of health. No fevers/chills, no dysuria/increased urinary frequency no cough or congestion, no chest pain or shortness of breath, no diarrhea or rashes. The geriatric case manager does report that he seemed slightly more lethargic than usual. He denies any abdominal pain at the time of admission. He reports feeling hungry. He denies any previous abdominal surgeries. No previous radiation to the abdominal wall. No history of inflammatory bowel disease. In the ED, he was febrile with normal BP, BP. He was breathing on his baseline oxygen requirement of 2L via NC. His WBC was elevated to 18 with neutrophil predominance. His Hgb was 12.2, MCV was 97. His Cr was 1.52, BUN elevated to 42. Electrolytes were WNL. Liver profile was unremarkable. Lipase was not elevated. UA showing trace LE, neg nitrites, neg bacteria. EKG showing NSR. Cat scan of abdomen and pelvis showing evidence of a small bowel obstruction; bilateral cortical renal cysts noted incidentally. He was given 1 dose of Zofran and 1 liter of NSS. Allergies Allergy/AdvReac Type Severity Reaction Status Date / Time diltiazem Allergy Intermediate rash and Verified 06/09/21 17:32 edema fentanyl AdvReac Severe Confusion Verified 06/09/21 17:32 Home Medications Medication Instructions Recorded Confirmed Type acetaminophen 500 mg capsule 500 mg PO Q6 PRN 12/10/20 06/09/21 History aspirin 81 mg tablet,delayed 81 mg PO HS 12/10/20 06/09/21 History release atorvastatin 40 mg tablet 40 mg PO QPM 12/10/20 06/09/21 History cholecalciferol (vitamin D3) 50 50 mcg PO QPM 12/10/20 06/09/21 History mcg (2,000 unit) capsule (Vitamin D3) clozapine 100 mg tablet 300 mg PO HS 12/10/20 06/09/21 History cyanocobalamin (vitamin B-12) 1,000 mcg PO QPM 12/10/20 06/09/21 History 1,000 mcg tablet divalproex 125 mg tablet,delayed 125 mg PO BID 12/10/20 06/09/21 History release divalproex 250 mg tablet,delayed 250 mg PO BID 12/10/20 06/09/21 History release furosemide 20 mg tablet 20 mg PO BID 12/10/20 06/09/21 History magnesium hydroxide 400 mg/5 mL 30 ml PO UD PRN 12/10/20 06/09/21 History oral suspension (Milk of Magnesia) polyethylene glycol 3350 17 gram 17 g PO BID PRN 12/10/20 06/09/21 History oral powder packet finasteride 5 mg tablet 5 mg PO HS #90 tab 01/02/21 06/09/21 Rx tamsulosin 0.4 mg capsule 0.4 mg PO HS #90 cap 01/08/21 06/09/21 Rx sennosides 8.6 mg tablet 17.2 mg PO BID #90 tab 03/06/21 06/09/21 Rx mometasone (Asmanex Twisthaler) 220 mcg INHALATION HS #1 ea 03/20/21 06/09/21 Rx metoprolol succinate 50 mg 50 mg PO QAM #90 tab 03/27/21 06/09/21 Rx tablet,extended release 24 hr CPAP Machine See Rx Instructions .ROUTE 04/01/21 06/09/21 Rx .COMPLEX #1 ea phenazopyridine 200 mg tablet 200 mg PO Q8H PRN #10 tab 04/06/21 06/09/21 Rx (Pyridium) ipratropium 0.5 mg-albuterol 3 mg 3 ml INHALATION Q4H PRN #180 ml 06/18/21 08/10/21 Rx (2.5 mg base)/3 mL nebulization soln ferrous sulfate 325 mg (65 mg 325 mg PO BID #180 tab 05/01/21 06/09/21 Rx iron) tablet hydrocodone 5 mg-acetaminophen 325 1 tab PO TID #90 tab 05/29/21 06/09/21 Rx mg tablet levothyroxine 50 mcg tablet 50 mcg PO DAILY #30 tab 06/04/21 06/09/21 Rx famotidine 20 mg tablet 20 mg PO BID #60 tab 06/05/21 06/09/21 Rx Past Med/Surg History Medical History Anemia chronic, baseline hgb 10s per chart review Asthma Avascular necrosis BPH (benign prostatic hyperplasia) CAD in [place] artery Per [facility], "presumed CAD" based on coronary artery calcifications noted on imaging Cavitary lesion of lung Chronic hypoxemic respiratory failure Chronic kidney disease (CKD), stage III (moderate) Chronic pain Dysphagia Edema GERD (gastroesophageal reflux disease) Hiatal hernia Hypercholesterolemia Hypertension Hypothyroidism Inappropriate ADH syndrome Interstitial lung disease On 2L O2 continuous via NC Nontuberculous mycobacterial disease of lung Following with [facility] pulmonary ([place]) Obstructive sleep apnea On 2L O2 continuous via NC Paranoid schizophrenia Seizure disorder Remote hx several years ago, no seizures since anticonvulsant initiation per [place] [facility] 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 No mention of LVOT obstruction, only mild concentric LVH. Echo was reviewed by cardiology 12/2019, felt no further cardiac workup needed. Surgical History History of breast surgery Possible History of bronchoscopy History of cardiac cath Remote > no stents History of cataract surgery R/L History of colonoscopy History of cystoscopy Left cystoscopy, ureteronephroscopy, retropyelogram (10/06/20): LMA#5 at [facility] Family History Father Prostate cancer Mother Lung cancer Denies family history of Breast cancer Colorectal cancer Social History Smoking Status: Never smoker Tobacco Type: Cigarettes Age Quit Using Tobacco: 38; Second Hand Exposure: No; Do You Dip or Chew Tobacco: No; Hx Alcohol Use: No Hx Substance Use: No Preferred Language: Welsh Communication Ability: Effective Visual Impairment: No Limitations Hearing Ability: Normal Biology Laboratory Assistant Required: No Beliefs That Will Affect Care: None marital status: Single Current Living Situation: Other Current Living Situation Comment: [facility] current occupational status: retired How many Children do You have: 0 Other Information That Helps Us Care for You: No Feels Safe at Home: Yes Safety Concerns: Feels Safe At This Time Seatbelt Use: always Assistive Devices: Denture - Upper, Denture - Lower and Glasses Review of Systems Review of Systems: All systems reviewed & are unremarkable except as noted in HPI & below Physical Exam Constitutional: WD/WN, vitals as above cooperative and comfortable; no acute distress Eyes: + anicteric sclerae ENMT: external ear and nose normal, oropharynx normal Neck: trachea midline Respiratory: normal respiratory effort, lungs clear to auscultation no cough Cardiovascular: RRR, no murmur, no edema Heart Sounds: normal S1 and normal S2 Extremities: + pedal edema (1+ b/l) Gastrointestinal (Abdomen): normal bowel sounds, soft, nontender, no hepatosplenomegaly Musculoskeletal: Head/Neck/Chest: normocephalic and head atraumatic Skin: no rashes, warm and dry Neurologic: moves all extremities Psychiatric: A+Ox3, euthymic affect Results & Data Results & Data ([facility]) Vital Signs (Past 12 Hours) Vital Signs Temp Pulse Pulse Resp BP BP Pulse Ox 06/09/21 19:00 95 H 16 115/76 97 06/09/21 17:04 92 H 18 116/58 L 100 06/09/21 16:06 36.0 C L 98 H 20 107/66 99 Supervising Physician Co-Signing Physician Notes Patient seen and examined, chart reviewed, case discussed with Dr. Rodríguez I agree with her assessment and plan as documented above. Briefly, patient is a 70-year-old male with developmental delay resident of [facility] presenting with postprandial vomiting as well as abdominal pain.Work-up in the ER concerning for small bowel obstruction. No prior abdominal surgeries. On physical exam patient is afebrile, hemodynamically stable, no acute distress Skinwarm, dry, intact, no rashes or lesions HEENTnormocephalic/atraumatic, pupils equal and reactive to light, moist mucous membranes, neck supple Heart+ S1, S2 regular, no murmur/rub/gallops Lungsequal air entry bilaterally, no rales/rhonchi/wheezes Abdomenpositive bowel sounds, soft, nontender, mildly distended Extremitieswarm, well-perfused Labs and images reviewed. Significant for WBC = 18.41, BUN = 42 and creatinine of 1.[address] CT concerning for SBO as above Assessment/[id number] male presenting with small bowel obstruction Presently with no abdominal pain, no nausea, distention or vomiting. Will hold off on NG tube for now IV fluid and electrolyte repletion Antiemetics and pain medication as needed Remainder of plan as above Resident Activity Tracking Resident Involvement: Resident Care Provided Care Provided: Adult Hospital Medicine (1) BPH (benign prostatic hyperplasia) Lower urinary tract symptom presence: symptoms absent Qualified Code(s): N40.0 - Benign prostatic hyperplasia without lower urinary tract symptoms (2) Anemia Anemia type: unspecified type Qualified Code(s): D64.9 - Anemia, unspecified (3) Hypothyroidism Hypothyroidism type: acquired Qualified Code(s): E03.9 - Hypothyroidism, unspecified (4) GERD (gastroesophageal reflux disease) Esophagitis presence: esophagitis presence not specified Qualified Code(s): K21.9 - Gastro-esophageal reflux disease without esophagitis
[2021-06-09] MEDS ORDERED: ACETAMINOPHEN 1000 MG/100 ML IV IV PRN (23:02)
[2021-06-09] MEDS ORDERED: NON-FORMULARY MEDICATION (Cpap Machine misc) SCH (23:02)
[2021-06-09] MEDS ORDERED: ONDANSETRON INJ 2 MG/ML 2 ML VIAL IV PRN (23:02)
[2021-06-09] MEDS: SODIUM CHLORIDE 0.9% 1000ML 1,000 ML IV SCH (23:31)
[2021-06-10] MEDS: DIVALPROEX DELAY RELEASE 125 MG TABEC PO SCH ×3 (00:44→20:36)
[2021-06-10] MEDS: cloZAPine 100 MG TAB PO SCH ×2 (00:44→20:36)
[2021-06-10] MEDS: HYDROCODONE/ACETAMOPHEN 5/325MG TAB PO SCH ×4 (00:44→20:35)
[2021-06-10] MEDS: DIVALPROEX DELAY RELEASE 250 MG TABEC PO SCH ×3 (00:45→20:36)
--- NOTE | 2021-06-10 05:07 | Billing Data ---
Date of Service June 09, 2021 Coding Level of Care Code INT OBSERVATION CARE 50M LVL 2
--- NOTE | 2021-06-10 08:46 | Hospitalist Progress Note ---
Date of Service June 10, 2021 Assessment & Plan (1) Small bowel obstruction: Plan: Mr. Pulido is a 70 yo gentleman who presented with recurrent emesis and abdominal pain, found to have a small bowel obstruction on cat scan. - Etiology: likely functional > mechanical, as patient has no prior hx of abdominal surgeries (and therefore no risk for adhesions), no masses, hernias or strictures noted on CT scan No NGT at this time No further n/v No abdominal pain Repeat KUB without obstructive pattern but noted lot of stool R hemicolon. --> Patient without BM for several days at a time at home --> Bowel regimen miralax BID, senna daily. Mag citrate prn if effective. He would like ot hold off on any suppository Advance to full liquids for lunch, advance as tolerated LR @ 100cc/hr. Holding lasix scheduled for this afternoon but if able to keep up with PO tomorr ow can resume Tylenol prn pain, zofran prn nausea No surgical consultation at this time but they are aware of the patient from the ER doc per discussion with Dr. 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) No obvious bleeding Iron supplementation held on admission (and with constipation/obstruction as above) and will check iron studies/B12/folate with AM labs CBC in AM (4) Chronic diastolic CHF (congestive heart failure): Plan: Slightly dry -- on IVF as above Hold Lasix for today as above Continued metoprolol (5) Sleep apnea: Plan: - may use home CPAP qhs (6) CKD (chronic kidney disease), stage III: Plan: baseline Cr ~ 1,2 creatinine on admission was 1.5, BUN at 42-with acute kidney injury suspect pre-renal origin of acute worsening of chronic kidney disease given history of vomiting and reduced PO intake IVF as above Holding lasix as above Cr 0.96 today BMP in AM (7) Hypothyroidism: Plan: Resume home levothyroxine for tomorrow Given chronic constipation will check TSH with AM labs (8) CAD in [place] artery: Plan: Resumed ASA Holding statin for now to limit PO, can resume in AM (9) GERD (gastroesophageal reflux disease): Plan: hold home famotidine while npo placed on ppi bid as above (10) BPH (benign prostatic hyperplasia): Plan: Resumed flomax HS (11) Seizure disorder: Plan: continue home divalproex DVT ppx: will hold off on initiation of chemo given report of possible dark emesis, short anticipated hospital stay but added SCDs DNR/DNI Dispo: continued inpatient stay, likely d/c tomorrow if bowels moving and diet advancement tolerated without issue Admission and Anticipated Discharge Date Admission Date: June 09, 2021 Supervising Physician Co-Signing Physician Notes PA Supervision Note: I did not personally see or examine the patient today, but I verified all greene points of JOSÉ Elkins's assessment and plan with the following exceptions/additions: None Subjective Patient evaluated this morning. Feeling well. No further abdominal pain, nausea or vomiting. Inquiring about lunch. Discussed KUB without obstructive pattern and will advance diet. He notes he can go several days at home without a bowel movement. Discussed should be on bowel regimen to prevent in the future and will monitor response to ordered medications. He would like to avoid suppository and we will try orals first. No fever, chills, chest pain, shortness of breath or dysuria at this time. Chronically on 2L NC but has been 95% on room air when aide last checked. Review of Systems Review of Systems: All systems reviewed & are unremarkable except as noted in HPI & below Physical Exam Constitutional: WD/WN, vitals as above cooperative and comfortable; no acute distress Eyes: + anicteric sclerae ENMT: external ear and nose normal, oropharynx normal Neck: trachea midline Respiratory: normal respiratory effort, lungs clear to auscultation no cough not on oxygen but 95% on RA Cardiovascular: RRR, no murmur, no edema Heart Sounds: normal S1 and normal S2 Extremities: + pedal edema (1+ b/l) Gastrointestinal (Abdomen): normal bowel sounds, soft, nontender, no hepatosplenomegaly Musculoskeletal: Head/Neck/Chest: normocephalic and head atraumatic Skin: no rashes, warm and dry Neurologic: moves all extremities Psychiatric: A+Ox3, euthymic affect Results & Data Results & Data ([facility]) Vital Signs (Past 12 Hours) Vital Signs Temp Pulse Pulse Resp BP Pulse Ox 06/10/21 07:30 36.7 C 81 16 105/65 99 06/09/21 23:37 36.8 C 92 H 18 115/73 100 06/09/21 23:02 36.8 C 92 H 18 115/73 100 06/09/21 22:31 90 16 115/55 L 98 Laboratory Results 06/09/21 06/09/21 06/09/21 Range/Units 20:25 20:25 18:10 WBC (4.8-10.8) K/uL RBC (4.7-6.1) M/uL Hgb (14.0-18.0) g/dL Hct (42-52) % MCV (80-100) fL MCH (25-34) pg MCHC (32-36) g/dL RDW Std Deviation (36.4-46.3) fL RDW Coeff of [place] (11.5-14.5) % Plt Count (130-400) K/uL MPV (7.4-10.4) fL Immature Gran % (Auto) % Neut % (Auto) % Lymph % (Auto) % [place] % (Auto) % Eos % (Auto) % Baso % (Auto) % Neut # (Auto) (1.4-6.5) K/uL Lymph # (Auto) (1.2-3.4) K/uL [place] # (Auto) (0.11-0.59) K/uL Eos # (Auto) (0-0.5) K/uL Baso # (Auto) (0-0.2) K/uL Immature Gran # (Auto) (0.00-0.02) K/uL Sodium (136-145) mmol/L Potassium (3.5-5.1) mmol/L Chloride (98-107) mmol/L Carbon Dioxide (21-32) mmol/L Anion Gap (3-11) BUN (7-18) mg/dl Creatinine (0.6-1.4) mg/dl Est Cr Clr Drug Dosing Est GFR ( Amer) ml/min Est GFR (Non-Af Amer) ml/min BUN/Creatinine Ratio (10-20) Glucose (70-99) mg/dl Calcium (8.5-10.1) mg/dl Total Bilirubin (0.2-1) mg/dl AST (15-37) U/L ALT (12-78) U/L Alkaline Phosphatase (45-117) U/L Total Protein (6.4-8.2) gm/dl Albumin (3.4-5.0) gm/dl Globulin (2.5-4.0) gm/dl Albumin/Globulin Ratio (0.9-2) Lipase (73-393) U/L Urine Color Yellow Urine Appearance Clear (Clear) Urine pH 5.5 (4.5-7.5) Ur Specific [place] 1.016 (1.000-1.030) Urine Protein Negative (Negative) Urine Glucose (UA) Negative (Negative) Urine Ketones Trace H (Negative) Urine Blood Negative (Negative) Urine Nitrite Negative (Negative) Urine Bilirubin Negative (Negative) Urine Urobilinogen Negative (Negative) Ur Leukocyte Esterase Trace H (Negative) Urine WBC (Auto) 1-5 (0-5) /hpf Urine RBC (Auto) 5-10 H (0-4) /hpf U Hyaline Cast (Auto) 10-30 H (0-5) /lpf U Epithel Cells (Auto) >30 H (0-5) /lpf Urine Bacteria (Auto) Negative (Negative) COVID-19 Eval Order Covid19 at [facility] SARS-CoV-2 (PCR) NEGATIVE (Negative) 06/09/21 06/09/21 Range/Units 17:01 17:01 WBC 18.41 H (4.8-10.8) K/uL RBC 4.02 L (4.7-6.1) M/uL Hgb 12.2 L (14.0-18.0) g/dL Hct 39.1 L (42-52) % MCV 97.3 (80-100) fL MCH 30.3 (25-34) pg MCHC 31.2 L (32-36) g/dL RDW Std Deviation 49.3 H (36.4-46.3) fL RDW Coeff of [place]ia 13.7 (11.5-14.5) % Plt Count 192 (130-400) K/uL MPV 10.3 (7.4-10.4) fL Immature Gran % (Auto) 1.0 % Neut % (Auto) 78.5 % Lymph % (Auto) 9.9 % [place] % (Auto) 9.9 % Eos % (Auto) 0.6 % Baso % (Auto) 0.1 % Neut # (Auto) 14.45 H (1.4-6.5) K/uL Lymph # (Auto) 1.82 (1.2-3.4) K/uL [place] # (Auto) 1.82 H (0.11-0.59) K/uL Eos # (Auto) 0.11 (0-0.5) K/uL Baso # (Auto) 0.02 (0-0.2) K/uL Immature Gran # (Auto) 0.19 H (0.00-0.02) K/uL Sodium 135 L (136-145) mmol/L Potassium 5.0 (3.5-5.1) mmol/L Chloride 103 (98-107) mmol/L Carbon Dioxide 26 (21-32) mmol/L Anion Gap 6.0 (3-11) BUN 42 H (7-18) mg/dl Creatinine 1.52 H (0.6-1.4) mg/dl Est Cr Clr Drug Dosing Not Reportable Est GFR ( Amer) 53.8 ml/min Est GFR (Non-Af Amer) 46.4 ml/min BUN/Creatinine Ratio 27.4 H (10-20) Glucose 114 H (70-99) mg/dl Calcium 9.3 (8.5-10.1) mg/dl Total Bilirubin 0.4 (0.2-1) mg/dl AST 19 (15-37) U/L ALT 16 (12-78) U/L Alkaline Phosphatase 93 (45-117) U/L Total Protein 8.9 H (6.4-8.2) gm/dl Albumin 3.3 L (3.4-5.0) gm/dl Globulin 5.6 H (2.5-4.0) gm/dl Albumin/Globulin Ratio 0.6 L (0.9-2) Lipase 188 (73-393) U/L Urine Color Urine Appearance (Clear) Urine pH (4.5-7.5) Ur Specific [place] (1.000-1.030) Urine Protein (Negative) Urine Glucose (UA) (Negative) Urine Ketones (Negative) Urine Blood (Negative) Urine Nitrite (Negative) Urine Bilirubin (Negative) Urine Urobilinogen (Negative) Ur Leukocyte Esterase (Negative) Urine WBC (Auto) (0-5) /hpf Urine RBC (Auto) (0-4) /hpf U Hyaline Cast (Auto) (0-5) /lpf U Epithel Cells (Auto) (0-5) /lpf Urine Bacteria (Auto) (Negative) COVID-19 Eval Order SARS-CoV-2 (PCR) (Negative) Diagnostic Findings Abdomen/Pelvis CT 06/09/21 16:36 CT abd pelvis IV con only CLINICAL HISTORY: mid abd pain COMPARISON STUDY: February 18, 2021 TECHNIQUE: A dose lowering technique was utilized adhering to the principles of ALARA. CT DOSE: 1009.84 mGy.cm FINDINGS: Lower chest: Limited evaluation of lung bases patchy areas of peripheral architectural distortion, septal thickening and mild honeycombing which was also seen on prior study and likely representing interstitial lung disease. Trace right pleural effusion. Liver: The contrast-enhanced liver is normal in size, contour, and attenuation. There is no intrahepatic biliary ductal dilatation. The hepatic veins and portal veins are patent. Gallbladder: Unremarkable. Spleen: Normal in size and attenuation. Pancreas: Unremarkable. Adrenal glands: Unremarkable. Kidneys: There is symmetric renal cortical enhancement. The kidneys are normal in size without hydronephrosis.Multiple bilateral cortical cysts appear more conspicuous on current exam due to intravenous contrast administration, largest is measuring 2.3 x 2.0 cm and seen on the right. Few calcifications are seen within the right and left renal pelvises, likely vascular. Pelvic viscera: Urinary bladder is adequately filled with urine. Prostate gland is not enlarged. Bowel: Loops of small bowel are fluid-filled and within upper limits of normal, with prominent mucosal enhancement. Focal area of decreased in caliber is seen within terminal ilium likely small bowel obstruction. Peritoneum: There is no intraperitoneal free air or abdominal ascites. Vasculature: Abdominal aorta is normal in caliber with scattered calcifications of its wall. Extensive calcifications are seen within bilateral common iliac arteries and might associated with its stenosis. Adenopathy: Few small retroperitoneal lymph nodes are seen, measuring less than 1 cm in short axis and nonpathological by CT size criteria. Skeletal structures: Multilevel degenerative changes of the spine. Severe degenerative changes and deformity of bilateral hip joints are again seen. Please correlate above-mentioned findings was prior history. IMPRESSION: 1. Small bowel obstruction. Report will be sent to emergency Department. 2. Bilateral cortical renal cysts. 3. Vascular calcifications. 4. Interstitial lung disease. 5. The rest of findings as above. ACT 112: Negative or not required by law. The above report was generated using voice recognition software. It may contain grammatical, syntax or spelling errors. Electronically signed by: Jasimn Briones DO 06/09/2021 7:31 PM KUB X-Ray 06/10/21 07:00 XR KUB/Abdomen 1 view CLINICAL HISTORY: SBO COMPARISON STUDY: August 01, 2019. Also correlation is made with CT of abdomen and pelvis performed on June 09, 2021 FINDINGS: Multiple nondilated stool and gas filled loops of bowel are seen within abdomen. Evaluation is limited because lung bases are outside of [id number]. Large amount of stool is seen within right lower quadrant. Severe degenerative changes of bilateral hip joints. IMPRESSION: 1. No bowel loops dilatation. Large amount of stool within right hemiabdomen, might represent constipation pattern, bowel obstruction is less likely. Continued follow-up might be considered if clinically indicated. ACT 112: Negative or not required by law. The above report was generated using voice recognition software. It may contain grammatical, syntax or spelling errors. Electronically signed by: Jasmin Briones DO 06/10/2021 9:49 AM PG Care Time/CCT Total # of Minutes Spent Total Time Spent with Patient: Total time spent is greater than 50% in coordination of care (as documented) at patient's floor/unit and/or counseling patient: Coding Level of Care Code 84905 Subseq Obs Care Lvl 3 Diagnoses Small bowel obstruction K56.609 Leukocytosis D72.829 Anemia D64.9 Anemia type: unspecified type Chronic diastolic CHF (congestive heart failure) I50.32 Sleep apnea G47.30 CKD (chronic kidney disease), stage III N18.3 Hypothyroidism E03.9 Hypothyroidism type: acquired CAD in [place] artery I25.10 GERD (gastroesophageal reflux disease) K21.9 Esophagitis presence: esophagitis presence not specified BPH (benign prostatic hyperplasia) N40.0 Lower urinary tract symptom presence: symptoms absent Seizure disorder G40.909 (1) BPH (benign prostatic hyperplasia) Lower urinary tract symptom presence: symptoms absent Qualified Code(s): N40.0 - Benign prostatic hyperplasia without lower urinary tract symptoms (2) Anemia Anemia type: unspecified type Qualified Code(s): D64.9 - Anemia, unspecified (3) Hypothyroidism Hypothyroidism type: acquired Qualified Code(s): E03.9 - Hypothyroidism, unspecified (4) GERD (gastroesophageal reflux disease) Esophagitis presence: esophagitis presence not specified Qualified Code(s): K21.9 - Gastro-esophageal reflux disease without esophagitis
[2021-06-10] MEDS: METOPROLOL SUCC 50MG EXT REL TAB PO SCH (08:56)
[2021-06-10] MEDS: SODIUM CHLORIDE 0.9% 1000ML 1,000 ML IV SCH ×2 (08:57→20:35)
[2021-06-10 09:11] LABS: Basophils # (auto) 0.02 K/uL (0-0.2); Basophils % (auto) 0.3 %; Eosinophils # (auto) 0.16 K/uL (0-0.5); Hematocrit (blood only) 31.3 % (42-52); Hemoglobin 9.7 g/dL (14.0-18.0); Immature Granulocytes # (auto) 0.12 K/uL (0.00-0.02); Immature Granulocytes % (auto) 1.5 %; Lymphocytes # (auto) 2.21 K/uL (1.2-3.4); Mean Corpuscular Hemoglobin 30.1 pg (25-34); Mean Corpuscular Volume 97.2 fL (80-100); Mean Platelet Volume 10.2 fL (7.4-10.4); Monocytes % (auto) 11.4 %; Neutrophils # (auto) 4.47 K/uL (1.4-6.5); Neutrophils % (auto) 56.8 %; Platelet Count 150 K/uL (130-400); RDW Coefficient of Variation 13.9 % (11.5-14.5); RDW Standard Deviation 49.6 fL (36.4-46.3); Red Blood Count 3.22 M/uL (4.7-6.1); White Blood Count 7.88 K/uL (4.8-10.8)
[2021-06-10 09:26] LABS: BUN Creatinine Ratio 37.4 (10-20); Calcium 8.5 mg/dl (8.5-10.1); Creatinine Clr Calc Pharmacy 78.7 ml/min; Est GFR (African American) 93.8 ml/min; Est GFR (Non-African American) 80.9 ml/min; Potassium 4.4 mmol/L (3.5-5.1)
--- NOTE | 2021-06-10 09:50 | XRay Report ---
XR KUB/Abdomen 1 view CLINICAL HISTORY: SBO COMPARISON STUDY: August 01, 2019. Also correlation is made with CT of abdomen and pelvis performed on June 09, 2021 FINDINGS: Multiple nondilated stool and gas filled loops of bowel are seen within abdomen. Evaluation is limited because lung bases are outside of [id number]. Large amount of stool is seen within right lower quadrant. Severe degenerative changes of bilateral hip joints. IMPRESSION: 1. No bowel loops dilatation. Large amount of stool within right hemiabdomen, might represent consti pation pattern, bowel obstruction is less likely. Continued follow-up might be considered if clinical ly indicated. ACT 112: Negative or not required by law. The above report was generated using voice recognition software. It may contain grammatical, syntax o r spelling errors. Electronically signed by: Jasmin Briones DO 06/10/2021 9:49 AM
[2021-06-10] MEDS ORDERED: bisacodyL 10 MG SUPP PR STA (11:12)
[2021-06-10] MEDS ORDERED: POLYETHYLENE (MIRALAX) 17 GM PACK PO SCH (11:15)
[2021-06-10] MEDS ORDERED: MAGNESIUM CITRATE 296 ML/BTL PO PRN (12:23)
[2021-06-10] MEDS: DOCUSATE SODIUM/SENNA 50/8.6MG TAB PO SCH ×2 (12:34→13:58)
[2021-06-10] MEDS ORDERED: PANTOprazole 40 MG TAB PO SCH (13:00)
[2021-06-10] MEDS: PANTOprazole 40 MG TAB PO SCH ×2 (13:58→20:36)
[2021-06-10] MEDS ORDERED: FUROSEMIDE 40 MG/4 ML VIAL IV SCH (14:00)
[2021-06-10] MEDS ORDERED: FUROSEMIDE 10 MG in SYRINGE 0 ML IV ONE (14:00)
[2021-06-10] MEDS ORDERED: COUGH DROP (SUGAR FREE) LOZ 24 LOZ/1 BOX BUCCAL PRN (16:30)
[2021-06-10] MEDS: POLYETHYLENE (MIRALAX) 17 GM PACK PO SCH (20:37)
[2021-06-10] MEDS ORDERED: TAMSULOSIN HCL 0.4 MG CAP PO SCH (21:00)
[2021-06-10] MEDS ORDERED: FLUTICASONE FUROATE 100MCG 14 PUFFS/INHALER INH SCH (21:00)
[2021-06-10] MEDS ORDERED: ASPIRIN 81 MG ECTAB PO SCH (21:00)
[2021-06-11] MEDS: SODIUM CHLORIDE 0.9% 1000ML 1,000 ML IV SCH (05:13)
[2021-06-11] MEDS ORDERED: LEVOTHYROXINE SODIUM 50 MCG TABLET PO SCH (06:30)
[2021-06-11] MEDS: POLYETHYLENE (MIRALAX) 17 GM PACK PO SCH (07:25)
[2021-06-11] MEDS: DOCUSATE SODIUM/SENNA 50/8.6MG TAB PO SCH (07:32)
[2021-06-11] MEDS: METOPROLOL SUCC 50MG EXT REL TAB PO SCH (07:32)
[2021-06-11] MEDS: PANTOprazole 40 MG TAB PO SCH (07:32)
[2021-06-11] MEDS: HYDROCODONE/ACETAMOPHEN 5/325MG TAB PO SCH ×2 (07:32→13:07)
[2021-06-11] MEDS: DIVALPROEX DELAY RELEASE 125 MG TABEC PO SCH (07:33)
[2021-06-11] MEDS: DIVALPROEX DELAY RELEASE 250 MG TABEC PO SCH (07:33)
[2021-06-11 08:47] LABS: Hemoglobin 9.4 g/dL (14.0-18.0); Mean Corpuscular Hemoglobin 29.9 pg (25-34); Mean Corpuscular Hgb Conc 30.3 g/dL (32-36); Mean Corpuscular Volume 98.7 fL (80-100); Mean Platelet Volume 9.8 fL (7.4-10.4); Platelet Count 146 K/uL (130-400); RDW Coefficient of Variation 13.7 % (11.5-14.5); RDW Standard Deviation 49.2 fL (36.4-46.3); Red Blood Count 3.14 M/uL (4.7-6.1); White Blood Count 8.72 K/uL (4.8-10.8)
--- NOTE | 2021-06-11 08:48 | Hospitalist Progress Note ---
Date of Service June 11, 2021 Assessment & Plan (1) Small bowel obstruction: Plan: Mr. Pulido is a 70 yo gentleman who presented with recurrent emesis and abdominal pain, found to have a small bowel obstruction on cat scan. - Etiology: likely functional > mechanical, as patient has no prior hx of abdominal surgeries (and therefore no risk for adhesions), no masses, hernias or strictures noted on CT scan No NGT at this time No further n/v No abdominal pain Repeat KUB without obstructive pattern but noted lot of stool R hemicolon. --> Patient without BM for several days at a time at home --> Bowel regimen miralax BID, senna daily. Mag citrate prn if effective. He would like ot hold off on any suppository Advance to full liquids for lunch, advance as tolerated LR @ 100cc/hr. Holding lasix scheduled for this afternoon but if able to keep up with PO tomorr ow can resume Tylenol prn pain, zofran prn nausea No surgical consultation at this time but they are aware of the patient from the ER doc per discussion with Dr. 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) No obvious bleeding Iron supplementation held on admission (and with constipation/obstruction as above) and will check iron studies/B12/folate with AM labs CBC in AM (4) Chronic diastolic CHF (congestive heart failure): Plan: Slightly dry -- on IVF as above Hold Lasix for today as above Continued metoprolol (5) Sleep apnea: Plan: - may use home CPAP qhs (6) CKD (chronic kidney disease), stage III: Plan: baseline Cr ~ 1,2 creatinine on admission was 1.5, BUN at 42-with acute kidney injury suspect pre-renal origin of acute worsening of chronic kidney disease given history of vomiting and reduced PO intake IVF as above Holding lasix as above Cr 0.96 today BMP in AM (7) Hypothyroidism: Plan: Resume home levothyroxine for tomorrow Given chronic constipation will check TSH with AM labs (8) CAD in [place] artery: Plan: Resumed ASA Holding statin for now to limit PO, can resume in AM (9) GERD (gastroesophageal reflux disease): Plan: hold home famotidine while npo placed on ppi bid as above (10) BPH (benign prostatic hyperplasia): Plan: Resumed flomax HS (11) Seizure disorder: Plan: continue home divalproex DVT ppx: will hold off on initiation of chemo given report of possible dark emesis, short anticipated hospital stay but added SCDs DNR/DNI Dispo: continued inpatient stay, likely d/c tomorrow if bowels moving and diet advancement tolerated without issue Admission and Anticipated Discharge Date Admission Date: June 09, 2021 Physical Exam Constitutional: WD/WN, vitals as above cooperative and comfortable; no acute distress Eyes: + anicteric sclerae ENMT: external ear and nose normal, oropharynx normal Neck: trachea midline Respiratory: normal respiratory effort, lungs clear to auscultation no cough Cardiovascular: RRR, no murmur, no edema Heart Sounds: normal S1 and normal S2 Extremities: + pedal edema (1+ b/l) Gastrointestinal (Abdomen): normal bowel sounds, soft, nontender, no hepatosplenomegaly Musculoskeletal: Head/Neck/Chest: normocephalic and head atraumatic Skin: no rashes, warm and dry Neurologic: moves all extremities Psychiatric: A+Ox3, euthymic affect Results & Data Results & Data ([facility]) Vital Signs (Past 12 Hours) Vital Signs Temp Pulse Resp BP Pulse Ox 06/11/21 07:08 36.5 C 88 18 121/71 99 06/10/21 22:40 36.8 C 95 H 17 112/71 97 PG Care Time/CCT Total # of Minutes Spent Total Time Spent with Patient: Total time spent is greater than 50% in coordination of care (as documented) at patient's floor/unit and/or counseling patient: Coding Diagnoses Small bowel obstruction K56.609 Leukocytosis D72.829 Anemia D64.9 Anemia type: unspecified type Chronic diastolic CHF (congestive heart failure) I50.32 Sleep apnea G47.30 CKD (chronic kidney disease), stage III N18.3 Hypothyroidism E03.9 Hypothyroidism type: acquired CAD in [place] artery I25.10 GERD (gastroesophageal reflux disease) K21.9 Esophagitis presence: esophagitis presence not specified BPH (benign prostatic hyperplasia) N40.0 Lower urinary tract symptom presence: symptoms absent Seizure disorder G40.909 (1) Anemia Anemia type: unspecified type Qualified Code(s): D64.9 - Anemia, unspecified (2) Hypothyroidism Hypothyroidism type: acquired Qualified Code(s): E03.9 - Hypothyroidism, unspecified (3) GERD (gastroesophageal reflux disease) Esophagitis presence: esophagitis presence not specified Qualified Code(s): K21.9 - Gastro-esophageal reflux disease without esophagitis (4) BPH (benign prostatic hyperplasia) Lower urinary tract symptom presence: symptoms absent Qualified Code(s): N40.0 - Benign prostatic hyperplasia without lower urinary tract symptoms
[2021-06-11 09:25] LABS: BUN Creatinine Ratio 27.2 (10-20); Calcium 8.2 mg/dl (8.5-10.1); Creatinine Clr Calc Pharmacy 102.1 ml/min; Est GFR (African American) 109.8 ml/min; Est GFR (Non-African American) 94.8 ml/min; Ferritin 324.3 ng/ml (8-388); Magnesium 1.7 mg/dl (1.8-2.4); Potassium 4.2 mmol/L (3.5-5.1)
[2021-06-11 09:44] LABS: Folate (Folic Acid) 7.4 ng/ml (>5.38)
[2021-06-11] MEDS: MAGNESIUM SULFATE / D5W 1 GM/100 ML BAG IV SCH ×2 (10:49→13:04)
--- NOTE | 2021-06-11 11:45 | Discharge Summary ---
Date of Service June 11, 2021 Admission HPI Per Admitting Provider Mr. Pulido is a 70 yo gentleman who is a resident at [facility] who was brought in for evaluation of vomiting and abdominal pain. After drinking a cup of coffee and eating two donuts for breakfast, Mr. Pulido vomited. He report 5 total episodes of emesis through the mid afternoon; last episode occurred at ~ 2pm. He endorsed associated periumbilical pain at the time of the vomiting. When asked about his vomitus, he reported it was dark in color and sometimes green. The window caser from [facility] who accompanies him to the ED was not present for the vomiting episodes, and thus cannot corroborate the vomitus color/composition. In the days prior to admission, Mr. Pulido states that he had been in his usual state of health. No fevers/chills, no dysuria/increased urinary frequency no cough or congestion, no chest pain or shortness of breath, no diarrhea or rashes. The window caser does report that he seemed slightly more lethargic than usual. He denies any abdominal pain at the time of admission. He reports feeling hungry. He denies any previous abdominal surgeries. No previous radiation to the abdominal wall. No history of inflammatory bowel disease. In the ED, he was febrile with normal BP, BP. He was breathing on his baseline oxygen requirement of 2L via NC. His WBC was elevated to 18 with neutrophil predominance. His Hgb was 12.2, MCV was 97. His Cr was 1.52, BUN elevated to 42. Electrolytes were WNL. Liver profile was unremarkable. Lipase was not elevated. UA showing trace LE, neg nitrites, neg bacteria. EKG showing NSR. Cat scan of abdomen and pelvis showing evidence of a small bowel obstruction; bilateral cortical renal cysts noted incidentally. He was given 1 dose of Zofran and 1 liter of NSS. Admission Exam Per Admitting Provider Constitutional: WD/WN, vitals as above cooperative and comfortable; no acute distress Eyes: + anicteric sclerae ENMT: external ear and nose normal, oropharynx normal Neck: trachea midline Respiratory: normal respiratory effort, lungs clear to auscultation no cough Cardiovascular: RRR, no murmur, no edema Heart Sounds: normal S1 and normal S2 Extremities: + pedal edema (1+ b/l) Gastrointestinal (Abdomen): normal bowel sounds, soft, nontender, no hepatosplenomegaly Musculoskeletal: Head/Neck/Chest: normocephalic and head atraumatic Skin: no rashes, warm and dry Neurologic: moves all extremities Psychiatric: A+Ox3, euthymic affect Principal Diagnosis Small bowel obstruction secondary to constipation Discharge Exam Constitutional WD/WN, vitals as above cooperative and comfortable; no acute distress Eyes + anicteric sclerae ENMT external ear and nose normal, oropharynx normal Neck trachea midline Respiratory normal respiratory effort, lungs clear to auscultation no cough Cardiovascular RRR, no murmur, no edema Heart Sounds: normal S1 and normal S2 Extremities: + pedal edema (1+ b/l) Gastrointestinal (Abdomen) Positive bowel sounds throughout, soft, nontender to palpation, palpable stool appreciated but decreased compared to yesterday Musculoskeletal Head/Neck/Chest: normocephalic and head atraumatic Skin no rashes, warm and dry Neurologic moves all extremities Psychiatric A+Ox3, euthymic affect Intellectual disability Genitourinary No Rodas Discharge Data Allergies Allergy/AdvReac Type Severity Reaction Status Date / Time diltiazem Allergy Intermediate rash and Verified 06/09/21 17:32 edema fentanyl AdvReac Severe Confusion Verified 06/09/21 17:32 Consultations 06/09/21 19:53 ED Decision to Admit Stat Ordered Studies 06/09/21 16:36 CT abd pelvis IV con only Stat Hospital Course (1) Small bowel obstruction: Mr. Pulido is a 70 yo gentleman who presented with recurrent emesis and abdominal pain, found to have a small bowel obstruction on cat scan. Was eating coffee and donuts developed abdominal discomfort and subsequent vomiting presented to the emergency department however had no further vomiting Patient does not have a history of abdominal surgeries therefore risk for adhesions not applicable, no masses or hernias or strictures noted on CAT scan Given no further vomiting nausea NG tube was avoided at this time Patient continued to have bowel movements and ileus resolved no surgery consult was undertaken Repeat KUB without obstructive pattern but noted a lot of stool in the right hemicolon and patient had admitted to being without a bowel movement in several days at home and a lot of his bowel regimen medications were ordered as needed however we did discuss that he should be scheduled Several large bowel movements on 06/10 reported by nursing despite repeat KUB 06/11 noting mild interval dilation of the loop of large bowel within the right lower quadrant patient continued to move his bowels, no nausea, no vomiting fever or chills and felt stable to go home Discussed scheduling his MiraLAX twice daily as well as senna and to utilize Dulcolax 5 mg daily as needed if he does not have a bowel movement daily to prevent further issues with constipation Magnesium also checked which was low and ordered IV replacement (likely secondary to his PPI use) and sent on mag oxide daily at discharge which should also help Sylvia Tolerated clears and continued to move his bowels and was advance as tolerated --> regular diet without difficulty Of note patient on iron supplementation daily and this likely exacerbates constipation issues. Repeat iron studies with improvement and suspect patient could discontinue this in near future but would recommend follow-up with PCP prior to doing so (2) Leukocytosis: Elevated on admission but suspect reactive d/t emesis Resolved, WBC within normal limit did not receive any antibiotics Remained afebrile and UA without evidence of infection (3) Anemia: Hgb 12.2 on admission, normocytic but suspect heme-concentration from n/v/dehydration Reported dark-colored emesis prior to admission however itching was previously just drinking coffee and hemoglobin is around baseline. Had recently been started on iron supplementation for low iron and iron stores were checked which have been improved Hemoglobin stable at 9.4 but of note patient did remain on IV fluids suspect some dilutional effect. No epi bleeding noted Follow-up as an outpatient routine check (4) Chronic diastolic CHF (congestive heart failure): Dehydrated on admission secondary to nausea/vomiting secondary to obstruction as above Patient was placed on IV fluids hydration status improved, slightly volume up early a.m. 06/11 Patient tolerated oral intake and Lasix was resumed as a one-time IV dose for the equivalent daily dosing remain euvolemia Continued metoprolol (5) Sleep apnea: home CPAP qhs (6) CKD (chronic kidney disease), stage III: baseline Cr ~ 1,2 creatinine on admission was 1.5, BUN at 42-with acute kidney injury suspect pre-renal origin of acute worsening of chronic kidney disease given history of vomiting and reduced PO intake IVF as above normalization of creatinine to 0.74 (7) Hypothyroidism: Continued home levothyroxine Given chronic constipation will check TSH with AM labs-- WNL constipation likely 2nd to iron supplementation-- bowel regimen as above (8) CAD in [place] artery: ASA, Statin continued (9) GERD (gastroesophageal reflux disease): Famotidine while NPO and his omeprazole was resumed when taking p.o. Magnesium was also low secondary to poor intake and PPI use and was replacedshould also help with constipation issues and was sent on my oxide at discharge (10) BPH (benign prostatic hyperplasia): flomax HS (11) Seizure disorder: continued home divalproex Episode of seizure activity transition DVT ppx: SCDs Chemical avoided given dark emesis but patient had just been eating coffee and donuts prior to this. Hgb stable but was on continuous IVF. Iron improved from prior and continued on daily supplementation with bowel regimen as above DNR/DNI Discharged with caregiver from [facility] [employer] Total Time Total Time Spent Total Time Spent (In Minutes): 45 Discharge Plan Discharge Items Patient Disposition: Home - Self-Care Reason For Visit: BOWEL OBSTRUCTION Discharge Diagnosis: Bowel Obstruction Goals: You have been hospitalized for an acute medical problem. During your stay at [facility], we have made an effort to correct the problem that brought you to the hospital while keeping you as comfortable as possible. Medications were used to bring your condition under control and your discharge instructions will include directions for any medications you should take after leaving the hospital. Please make sure you see your Primary Care Provider as part of your follow up plan. Activity: Resume your previous activity Non-emergency contact: Primary Care Provider Call non-emergency contact if: you have any medication questions and your symptoms worsen Follow-up/Referrals: Jong Weir MD [Primary Care Provider] - 06/18/21 11:30 am (APPT WITH [facility]) Diet: Heart Healthy Addtl Attending Provider Instructions: You have been hospitalized for nausea vomiting and found to have an ileus vs small bowel obstruction. Given lack of previous surgeries, this was felt to be mechanical due to constipation and you were allowed bowel rest, and bowel regimen to help keep bowels moving and have had several bowel movements with these measures. You should continue miralax TWICE a day and SENNA at night SCHEDULED. This is important as you are on iron supplementation and this causes constipation in a lot of people and they typically need stool softeners to help get bowels moving. If you do not move your bowels daily, please take a dose of Dulcolax daily as needed to help stimulate a movement. You are also started on magnesium-oxide for low magnesium and this should also h elp to keep your bowels regular. You should follow up with your primary care provider in the next 1-2 weeks to monitor your progress. You should return to the emergency department if you have any fever, increased abdominal pain, nausea or vomiting, or inability to keep up with your oral intake. You should also return to the emergency department with any symptoms that are concerning for you. It has been a pleasure being a part of the medical team providing for you while you have been in the hospital. Take care! Pending Studies at Discharge: No Stand-Alone Forms: [facility] Medications and DC Order Prescriptions: New magnesium oxide 400 mg (241.3 mg magnesium) Tablet 400 mg PO QAM Qty: 30 RF: 0 bisacodyl [Dulcolax (bisacodyl)] 5 mg tablet,delayed release (DR/EC) 5 mg PO DAILY PRN (Reason: constipation) Qty: 30 RF: 0 Continued finasteride 5 mg tablet 5 mg PO HS Qty: 90 RF: 3 tamsulosin 0.4 mg capsule 0.4 mg PO HS Qty: 90 RF: 1 sennosides 8.6 mg tablet 17.2 mg PO BID Qty: 90 RF: 3 Asmanex Twisthaler 220 mcg/ actuation (30) aerosol powdr breath activated 220 mcg INHALATION HS Qty: 1 RF: 3 metoprolol succinate 50 mg tablet extended release 24 hr 50 mg PO QAM Qty: 90 RF: 3 ipratropium-albuterol 0.5 mg-3 mg(2.5 mg base)/3 mL solution for nebulization 3 ml INHALATION Q4H PRN (Reason: Shortness Of Breath) Qty: 180 RF: 3 ferrous sulfate 325 mg (65 mg iron) tablet 325 mg PO BID Qty: 180 RF: 1 hydrocodone-acetaminophen 5-325 mg tablet 1 tab PO TID Qty: 90 RF: 0 levothyroxine 50 mcg tablet 50 mcg PO DAILY Qty: 30 RF: 2 famotidine 20 mg tablet 20 mg PO BID Qty: 60 RF: 5 CPAP Machine Misc See Rx Instructions .ROUTE .COMPLEX Qty: 1 RF: 0 atorvastatin 40 mg Tablet 40 mg PO QPM RF: 0 divalproex 250 mg tablet,delayed release (DR/EC) 250 mg PO BID RF: 0 clozapine 100 mg tablet 300 mg PO HS RF: 0 cyanocobalamin (vitamin B-12) 1,000 mcg Tablet 1,000 mcg PO QPM RF: 0 aspirin 81 mg tablet,delayed release (DR/EC) 81 mg PO HS RF: 0 magnesium hydroxide [Milk of Magnesia] 400 mg/5 mL Suspension 30 ml PO UD PRN (Reason: Constipation) RF: 0 divalproex 125 mg tablet,delayed release (DR/EC) 125 mg PO BID RF: 0 furosemide 20 mg Tablet 20 mg PO BID RF: 0 acetaminophen 500 mg Capsule 500 mg PO Q6 PRN (Reason: Pain) RF: 0 cholecalciferol (vitamin D3) [Vitamin D3] 50 mcg (2,000 unit) Capsule 50 mcg PO QPM RF: 0 phenazopyridine [Pyridium] 200 mg tablet 200 mg PO Q8H PRN (Reason: pain) Qty: 10 RF: 0 Changed polyethylene glycol 3350 17 gram Powder In Packet 17 g PO BID 30 Days Qty: 0 RF: 0 Discharge Orders: Discharge Order (Routine); Ordered 06/11/21 Ordered By: Melina Elkins Admission Data Admit Date/Time: 06/09/21 20:28 Attending Provider: Lorie Lerner Admit Provider: Maryuri Mobley Primary Care Provider: Jong Weir Other Providers: Cecile Pretty Other Interventions: Discharge Summary Assessment (RN) Last Done: 06/11/21 15:32 Coding Level of Care Code 74367 OBS Care - Discharge Diagnoses Small bowel obstruction K56.609 Leukocytosis D72.829 Anemia D64.9 Anemia type: unspecified type Chronic diastolic CHF (congestive heart failure) I50.32 Sleep apnea G47.30 CKD (chronic kidney disease), stage III N18.3 Hypothyroidism E03.9 Hypothyroidism type: acquired CAD in [place] artery I25.10 GERD (gastroesophageal reflux disease) K21.9 Esophagitis presence: esophagitis presence not specified BPH (benign prostatic hyperplasia) N40.0 Lower urinary tract symptom presence: symptoms absent Seizure disorder G40.909
--- NOTE | 2021-06-11 11:59 | XRay Report ---
XR KUB/Abdomen 1 view CLINICAL HISTORY: f/u COMPARISON STUDY: June 10, 2021 FINDINGS: Multiple gas and stool-filled loops of bowel are seen. Interval dilatation of the colonic loop within left lower quadrant measuring 7.1 cm in diameter. Small right pleural effusion associated with atelectasis/infiltrate at the right base. IMPRESSION: 1. Mild interval dilatation of the loop of large bowel within the right lower quadrant. Continued fo llow-up is suggested. 2. Right pleural effusion associated with atelectasis/infiltrate. ACT 112: Negative or not required by law. The above report was generated using voice recognition software. It may contain grammatical, syntax o r spelling errors. Electronically signed by: Jasmin Briones DO 06/11/2021 11:57 AM
[2021-06-11] MEDS ORDERED: bisacodyL 5 MG TABEC PO ONE (12:18)
[2021-06-11] MEDS ORDERED: FUROSEMIDE 20 MG in SYRINGE 0 ML IV ONE (13:00)
[2021-06-12] MEDS ORDERED: MAGNESIUM OXIDE 400 MG TAB PO SCH (09:00)
== END 2021-06-11 15:33 | disposition home or self-care (01) ==
LOC: 3N 15:39 → ED 15:39 → SUATTDRO 20:28 → 3N 22:43

== ENCOUNTER 2021-09-02 14:06 | Inpatient (IN) ==
--- NOTE | 2021-09-02 15:11 | Emergency Department Note ---
Impression & Plan Pneumonia, Abdominal pain, Constipation, Acute hyponatremia ED Provider Note NAME: JOSIE DO AGE: 70 SEX: M : 1950 ARRIVES VIA: Walk-In INFORMANT: Patient, ED PROVIDER(S): Aly Martínez DO CHIEF COMPLAINT: Cough, congestion and abdominal pain HPI: Patient is a 70-year-old male who presents to the ER with a past medical history of hypoxemia chronically on 2 L, hyponatremia, anemia, CHF, CKD, and seizure disorder who was referred in by the PCP who resolved today. Patient has been having a cough and congestion since this past . He denies any chest pain or shortness of breath. He has been tested for Covid and been negative. He has also had some lower abdominal pain which has been present for the past several days. Has not had a bowel movement for 4 days. He denies any dysuria, urgency, or frequency. No other exacerbating or remitting factors. He did just finish up a dose of azithromycin today. ROS: See above HPI for pertinent positives & negatives. A total of 10 systems reviewed and were otherwise negative. PAST MEDICAL HISTORY:See Below PAST SURGICAL HISTORY:See Below FAMILY HISTORY:See Below SOCIAL HISTORY:See Below HOME MEDICATIONS:See Below ALLERGIES:See Below VITALS:See Below PHYSICAL EXAMINATION: GENERAL: Sitting up in bed, alert, but falls asleep quickly with intermittent cough EYE EXAM: normal conjunctiva. PERRL and EOM's grossly intact. OROPHARYNX: no exudate, no erythema, lips, buccal mucosa, and tongue normal and mucous membranes are moist NECK: supple, no nuchal rigidity, no adenopathy, non-tender LUNGS: Clear to auscultation. Normal chest wall mechanics HEART: no murmurs, S1 normal and S2 normal ABDOMEN: abdomen soft, non-tender, normo-active bowel sounds, no masses, no rebound or guarding. BACK: Back is symmetrical on inspection and there is no deformity, no midline tenderness, no CVA tenderness. SKIN: no rashes and no bruising UPPER EXTREMITIES: upper extremities are grossly normal. LOWER EXTREMITIES: No pitting edema. NEURO EXAM: Normal sensorium, cranial nerves II-XII grossly intact, normal speech, no gross weakness of arms, no gross weakness of legs. MEDICAL DECISION MAKING: Patient is a 70-year-old male who presents the ER for the above-stated complaint. IV was established blood work was obtained. Labs show leukocytosis 12,000. Mild anemia at 9.4 consistent with previous. VBG with a slight metabolic acidosis with pH of 7.30 and a CO2 of 64. BMP with mild hyponatremia 128. LFTs bilirubin and troponin were negative. proBNP was elevated at 10,000 with small pleural effusions and mild pitting edema. Lipase was normal. UA was unremarkable. Valproic acid 60. Covid was negative. Chest x-ray with the pleural effusions questionable infiltrates. CT a of the chest showed no PEs but bilateral infiltrates and effusion and questionable edema. CT abdomen pelvis showed constipation. Patient was given IV Rocephin and 0 took azithromycin today. He was given IV Lasix. He was updated bedside. Discussed with hospitalist for further evaluation. Triage Nursing notes reviewed. Limited review of prior medical records performed Vital Signs: reviewed and remarkable for on chronic 2 L Differential diagnosis: Differential diagnoses includes but is not limited to pneumonia, bronchitis, COPD/Asthma exacerbation, pneumothorax, pulmonary embolism, congestive heart failure, acute coronary syndrome ER treatment provided: See below Diagnostics interpreted by me: ECG: Sinus rhythm rate 84 Left axis No PVCs QTC 465 Cardiac Monitoring: An order was placed for continuous cardiac monitoring. The monitor shows a rate of 80 with sinus rhythm. Laboratory studies: As stated above and show below. Imaging studies: CT angio of the chest and CT abdomen as discussed above Chest x-ray with infiltrates Consultation(s): Discussed with Dr. Fernando Stone for further evaluation Procedures: none Critical Care: None Past Med/Surg History Medical History Anemia chronic, baseline hgb 10s per chart review Asthma Avascular necrosis BPH (benign prostatic hyperplasia) CAD in [place] artery [facility], "presumed CAD" based on coronary artery calcifications noted on imaging Cavitary lesion of lung Chronic hypoxemic respiratory failure Chronic kidney disease (CKD), stage III (moderate) Chronic pain Dysphagia Edema GERD (gastroesophageal reflux disease) Hiatal hernia Hypercholesterolemia Hypertension Hypothyroidism Inappropriate ADH syndrome Interstitial lung disease On 2L O2 continuous via NC Nontuberculous mycobacterial disease of lung Following with [facility] pulmonary ([place]) Obstructive sleep apnea On 2L O2 continuous via NC Paranoid schizophrenia SBO (small bowel obstruction) Seizure disorder Remote hx several years ago, no seizures since anticonvulsant initiation per [place] [facility] aid 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 No mention of LVOT obstruction, only mild co ncentric LVH. Echo was reviewed by cardiology 12/2019, felt no further cardiac workup needed. Surgical History History of breast surgery Possible History of bronchoscopy History of cardiac cath Remote > no stents History of cataract surgery R/L History of colonoscopy History of cystoscopy Left cystoscopy, ureteronephroscopy, retropyelogram (10/06/20): LMA#5 at [facility] Family History Father Prostate cancer Mother Lung cancer Denies family history of Breast cancer Colorectal cancer Social History Smoking Status: Never smoker Tobacco Type: Cigarettes Age Quit Using Tobacco: 38; Second Hand Exposure: No; Preferred Language: Ethiopian Communication Ability: Unknown Visual Impairment: No Limitations Hearing Ability: Normal [place]unt[place] Pairer Required: No Beliefs That Will Affect Care: None marital status: Single Current Living Situation: Personal Care Facility Current Living Situation Comment: [facility] current occupational status: retired How many Children do You have: 0 Feels Safe at Home: Yes Seatbelt Use: always Assistive Devices: Oxygen - Continuous Allergies Allergies Allergy/AdvReac Type Severity Reaction Status Date / Time diltiazem Allergy Intermediate rash and Verified 09/02/21 16:53 edema fentanyl AdvReac Severe Confusion Verified 09/02/21 16:53 Home Meds Home Medications Medication Instructions Recorded Confirmed acetaminophen 500 mg capsule 500 mg PO Q6 PRN 12/10/20 09/02/21 aspirin 81 mg tablet,delayed 81 mg PO HS 12/10/20 09/02/21 release clozapine 100 mg tablet 300 mg PO HS 12/10/20 09/02/21 cyanocobalamin (vitamin B-12) 1,000 mcg PO 2XWK 12/10/20 09/02/21 1,000 mcg tablet divalproex 125 mg tablet,delayed 125 mg PO BID 12/10/20 09/02/21 release divalproex 250 mg tablet,delayed 250 mg PO BID 12/10/20 09/02/21 release furosemide 20 mg tablet 20 mg PO BID 12/10/20 09/02/21 magnesium hydroxide 400 mg/5 mL 30 ml PO UD PRN 12/10/20 09/02/21 oral suspension (Milk of Magnesia) atorvastatin 40 mg tablet 40 mg PO HS 08/21/21 09/02/21 levothyroxine 75 mcg tablet 75 mcg PO QAM 08/21/21 09/02/21 polyethylene glycol 3350 17 gram 17 g PO BID PRN 08/21/21 09/02/21 oral powder packet sennosides 8.6 mg tablet 17.2 mg PO BID PRN 08/27/21 09/02/21 Previous Rx's Medication Instructions Recorded finasteride 5 mg tablet 5 mg PO HS #90 tab 01/02/21 metoprolol succinate 50 mg 50 mg PO QAM #90 tab 03/27/21 tablet,extended release 24 hr phenazopyridine 200 mg tablet 200 mg PO Q8H PRN #10 tab 04/06/21 (Pyridium) ipratropium 0.5 mg-albuterol 3 mg 3 ml INHALATION Q4H PRN #180 ml 04/17/21 (2.5 mg base)/3 mL nebulization soln bisacodyl 5 mg tablet,delayed 5 mg PO DAILY PRN #30 tab 06/11/21 release (Dulcolax (bisacodyl)) cholecalciferol (vitamin D3) 50 50 mcg PO DAILY #90 cap 06/17/21 mcg (2,000 unit) capsule (Vitamin D3) famotidine 20 mg tablet 20 mg PO BID #60 tab 06/17/21 magnesium oxide 400 mg (241.3 mg 400 mg PO QAM #90 tab 06/17/21 magnesium) tablet ferrous sulfate 325 mg (65 mg 325 mg PO BID #180 tab 06/18/21 iron) tablet tamsulosin 0.4 mg capsule 0.4 mg PO HS #90 cap 07/17/21 hydrocodone 5 mg-acetaminophen 325 1 tab PO TID #90 tab 08/26/21 mg tablet mometasone (Asmanex Twisthaler) 220 mcg INHALATION HS #1 ea 08/26/21 Results & Data (ED) Vital Signs Vital Signs - 24 hr 09/02/21 14:08 09/02/21 14:40 09/02/21 15:30 Temperature 36.7 C Temperature Source Temporal Artery Scan Pulse Rate 85 87 83 Pulse Rate from SpO2 Sensor 87 Respiratory Rate 18 20 24 Blood Pressure 113/62 120/64 Blood Pressure Mean 79 82 Pulse Oximetry 97 98 Oxygen Delivery Method Nasal Cannula Oxygen Flow Rate 2 Sepsis Recent Fever Within 48 Hours No Sepsis New/Unexplained Change in Mental Status No Sepsis Action Taken by Nursing No Action Required 09/02/21 15:37 09/02/21 16:00 09/02/21 16:30 Temperature Temperature Source Pulse Rate 79 82 Pulse Rate from SpO2 Sensor 79 82 Respiratory Rate 24 18 Blood Pressure 109/51 L Blood Pressure Mean 70 Pulse Oximetry 91 94 97 Oxygen Delivery Method Nasal Cannula Oxygen Flow Rate 2 Sepsis Recent Fever Within 48 Hours Sepsis New/Unexplained Change in Mental Status Sepsis Action Taken by Nursing 09/02/21 17:00 Temperature Temperature Source Pulse Rate 84 Pulse Rate from SpO2 Sensor 123 H Respiratory Rate 22 Blood Pressure 118/58 L Blood Pressure Mean 78 Pulse Oximetry 97 Oxygen Delivery Method Nasal Cannula Oxygen Flow Rate 2 Sepsis Recent Fever Within 48 Hours Sepsis New/Unexplained Change in Mental Status Sepsis Action Taken by Nursing Laboratory Data Result diagrams: 09/02/21 15:30 09/02/21 15:30 Lab Results 09/02/21 09/02/21 09/02/21 Range/Units 15:30 15:30 15:30 WBC 12.07 H (4.8-10.8) K/uL RBC 3.23 L (4.7-6.1) M/uL Hgb 9.4 L (14.0-18.0) g/dL Hct 29.8 L (42-52) % MCV 92.3 (80-100) fL MCH 29.1 (25-34) pg MCHC 31.5 L (32-36) g/dL RDW Std Deviation 46.0 (36.4-46.3) fL RDW Coeff of Nakia 13.7 (11.5-14.5) % Plt Count 217 (130-400) K/uL MPV 8.8 (7.4-10.4) fL Immature Gran % (Auto) 9.3 % Neut % (Auto) 58.4 % Lymph % (Auto) 14.7 % [place] % (Auto) 13.9 % Eos % (Auto) 3.3 % Baso % (Auto) 0.4 % Neut # (Auto) 7.04 H (1.4-6.5) K/uL Lymph # (Auto) 1.78 (1.2-3.4) K/uL [place] # (Auto) 1.68 H (0.11-0.59) K/uL Eos # (Auto) 0.40 (0-0.5) K/uL Baso # (Auto) 0.05 (0-0.2) K/uL Immature Gran # (Auto) 1.12 H (0.00-0.02) K/uL Polychromasia 1+ VBG pH (7.36-7.41) VBG pCO2 (38-50) mmHg VBG pO2 mmHg VBG HCO3 mmol/L VBG O2 Saturation % VBG Base Excess mEq/L Barometric Pressure mm/Hg Sodium 128 L (136-145) mmol/L Potassium 4.8 (3.5-5.1) mmol/L Chloride 93 L (98-107) mmol/L Carbon Dioxide 28 (21-32) mmol/L Anion Gap 7.0 (3-11) BUN 24 H (7-18) mg/dl Creatinine 1.14 (0.6-1.4) mg/dl Est Cr Clr Drug Dosing 68.2 ml/min Est GFR ( Amer) 76.2 ml/min Est GFR (Non-Af Amer) 65.7 ml/min BUN/Creatinine Ratio 21.2 H (10-20) Glucose 82 (70-99) mg/dl Calcium 8.9 (8.5-10.1) mg/dl Total Bilirubin 0.3 (0.2-1) mg/dl AST 13 L (15-37) U/L ALT 11 L (12-78) U/L Alkaline Phosphatase 89 (45-117) U/L Troponin I < 0.015 (0-0.045) ng/ml NT-Pro-B Natriuret Pep 54839 H (0-900) pg/ml Total Protein 7.5 (6.4-8.2) gm/dl Albumin 2.4 L (3.4-5.0) gm/dl Globulin 5.1 H (2.5-4.0) gm/dl Albumin/Globulin Ratio 0.5 L (0.9-2) Lipase 128 (73-393) U/L Urine Color Urine Appearance (Clear) Urine pH (4.5-7.5) Ur Specific [place] (1.000-1.030) Urine Protein (Negative) Urine Glucose (UA) (Negative) Urine Ketones (Negative) Urine Blood (Negative) Urine Nitrite (Negative) Urine Bilirubin (Negative) Urine Urobilinogen (Negative) Ur Leukocyte Esterase (Negative) Valproic Acid 61 (50-100) mcg/ml COVID-19 Eval Order SARS-CoV-2 (PCR) (Negative) 09/02/21 09/02/21 09/02/21 Range/Units 15:30 15:42 15:42 WBC (4.8-10.8) K/uL RBC (4.7-6.1) M/uL Hgb (14.0-18.0) g/dL Hct (42-52) % MCV (80-100) fL MCH (25-34) pg MCHC (32-36) g/dL RDW Std Deviation (36.4-46.3) fL RDW Coeff of Nakia (11.5-14.5) % Plt Count (130-400) K/uL MPV (7.4-10.4) fL Immature Gran % (Auto) % Neut % (Auto) % Lymph % (Auto) % [place] % (Auto) % Eos % (Auto) % Baso % (Auto) % Neut # (Auto) (1.4-6.5) K/uL Lymph # (Auto) (1.2-3.4) K/uL [place] # (Auto) (0.11-0.59) K/uL Eos # (Auto) (0-0.5) K/uL Baso # (Auto) (0-0.2) K/uL Immature Gran # (Auto) (0.00-0.02) K/uL Polychromasia VBG pH 7.30 L (7.36-7.41) VBG pCO2 64 H (38-50) mmHg VBG pO2 35 mmHg VBG HCO3 31 mmol/L VBG O2 Saturation < 60.0 % VBG Base Excess 3.0 mEq/L Barometric Pressure 738.6 mm/Hg Sodium (136-145) mmol/L Potassium (3.5-5.1) mmol/L Chloride (98-107) mmol/L Carbon Dioxide (21-32) mmol/L Anion Gap (3-11) BUN (7-18) mg/dl Creatinine (0.6-1.4) mg/dl Est Cr Clr Drug Dosing ml/min Est GFR ( Amer) ml/min Est GFR (Non-Af Amer) ml/min BUN/Creatinine Ratio (10-20) Glucose (70-99) mg/dl Calcium (8.5-10.1) mg/dl Total Bilirubin (0.2-1) mg/dl AST (15-37) U/L ALT (12-78) U/L Alkaline Phosphatase (45-117) U/L Troponin I (0-0.045) ng/ml NT-Pro-B Natriuret Pep (0-900) pg/ml Total Protein (6.4-8.2) gm/dl Albumin (3.4-5.0) gm/dl Globulin (2.5-4.0) gm/dl Albumin/Globulin Ratio (0.9-2) Lipase (73-393) U/L Urine Color Urine Appearance (Clear) Urine pH (4.5-7.5) Ur Specific [place] (1.000-1.030) Urine Protein (Negative) Urine Glucose (UA) (Negative) Urine Ketones (Negative) Urine Blood (Negative) Urine Nitrite (Negative) Urine Bilirubin (Negative) Urine Urobilinogen (Negative) Ur Leukocyte Esterase (Negative) Valproic Acid (50-100) mcg/ml COVID-19 Eval Order Covid19 at [facility] SARS-CoV-2 (PCR) NEGATIVE (Negative) 09/02/21 Range/Units 16:00 WBC (4.8-10.8) K/uL RBC (4.7-6.1) M/uL Hgb (14.0-18.0) g/dL Hct (42-52) % MCV (80-100) fL MCH (25-34) pg MCHC (32-36) g/dL RDW Std Deviation (36.4-46.3) fL RDW Coeff of Nakia (11.5-14.5) % Plt Count (130-400) K/uL MPV (7.4-10.4) fL Immature Gran % (Auto) % Neut % (Auto) % Lymph % (Auto) % [place] % (Auto) % Eos % (Auto) % Baso % (Auto) % Neut # (Auto) (1.4-6.5) K/uL Lymph # (Auto) (1.2-3.4) K/uL [place] # (Auto) (0.11-0.59) K/uL Eos # (Auto) (0-0.5) K/uL Baso # (Auto) (0-0.2) K/uL Immature Gran # (Auto) (0.00-0.02) K/uL Polychromasia VBG pH (7.36-7.41) VBG pCO2 (38-50) mmHg VBG pO2 mmHg VBG HCO3 mmol/L VBG O2 Saturation % VBG Base Excess mEq/L Barometric Pressure mm/Hg Sodium (136-145) mmol/L Potassium (3.5-5.1) mmol/L Chloride (98-107) mmol/L Carbon Dioxide (21-32) mmol/L Anion Gap (3-11) BUN (7-18) mg/dl Creatinine (0.6-1.4) mg/dl Est Cr Clr Drug Dosing ml/min Est GFR ( Amer) ml/min Est GFR (Non-Af Amer) ml/min BUN/Creatinine Ratio (10-20) Glucose (70-99) mg/dl Calcium (8.5-10.1) mg/dl Total Bilirubin (0.2-1) mg/dl AST (15-37) U/L ALT (12-78) U/L Alkaline Phosphatase (45-117) U/L Troponin I (0-0.045) ng/ml NT-Pro-B Natriuret Pep (0-900) pg/ml Total Protein (6.4-8.2) gm/dl Albumin (3.4-5.0) gm/dl Globulin (2.5-4.0) gm/dl Albumin/Globulin Ratio (0.9-2) Lipase (73-393) U/L Urine Color Yellow Urine Appearance Clear (Clear) Urine pH 6.5 (4.5-7.5) Ur Specific [place] 1.012 (1.000-1.030) Urine Protein Negative (Negative) Urine Glucose (UA) Negative (Negative) Urine Ketones Negative (Negative) Urine Blood Negative (Negative) Urine Nitrite Negative (Negative) Urine Bilirubin Negative (Negative) Urine Urobilinogen Negative (Negative) Ur Leukocyte Esterase Negative (Negative) Valproic Acid (50-100) mcg/ml COVID-19 Eval Order SARS-CoV-2 (PCR) (Negative) Administered Medications Discontinued Medications Ceftriaxone Sodium (Rocephin) 1,000 mg in 50 mls @ 100 mls/hr IV NOW STA Stop: 09/02/21 17:49 Last Infusion: 09/02/21 18:10 Dose: 0 mls/hr Documented by: [id number] Admin: 09/02/21 17:33 Dose: 100 mls/hr Documented by: [id number] Ioversol (Optiray 320 125ml) 120 ml IV ONCE ONE Stop: 09/02/21 16:28 Last Admin: 09/02/21 16:27 Dose: 120 ml Documented by: [id number] Imaging Data Radiologist's Impression: Chest X-Ray 09/02/21 14:57 SINGLE VIEW CHEST CLINICAL HISTORY: Atypical chest pain. Cough. FINDINGS: An AP, portable, upright chest radiograph is compared to study dated 08/27/2021 and correlated with chest CT dated 09/30/2020. The heart is mildly enlarged noting atherosclerotic calcification of the thoracic aorta. Fibrotic change is again seen throughout both lungs with right greater than left apical fibrosis. Airspace opacities in the mid to lower lungs have increased from prior examinations. Diffuse bronchiectasis is noted. No large pleural effusion or pneumothorax is seen. The skeletal structures are osteopenic. The bony thorax is grossly intact. Advanced arthritic change is seen in the shoulders. Radiodense/metallic foreign bodies are again seen projecting over the left chest. IMPRESSION: 1. Cardiomegaly and chronic fibrotic lung disease. 2. There are increasing airspace opacities in the mid to lower lungs as compared to prior examinations. This could represent a superimposed infectious/inflammatory pneumonitis and/or congestive failure/pulmonary edema. Clinical correlation will be required. Radiographic follow-up to resolution is recommended. ACT 112: Negative or not required by law. Electronically signed by: Faustino Smallwood M.D. 09/02/2021 3:42 PM Abdomen/Pelvis CT 09/02/21 15:07 CT ANGIOGRAM OF THE CHEST; CT SCAN OF THE ABDOMEN AND PELVIS WITH IV CONTRAST CLINICAL HISTORY: Dyspnea. Atypical chest pain. Generalized abdominal pain. COMPARISON STUDY: Chest x-ray dated 09/02/2021. Chest CT dated 09/30/2020. Abdominal CT dated 06/09/2021. TECHNIQUE: Following the IV administration of 120 of Optiray 320, CT angiogram of the chest is performed from the upper abdomen to the thoracic inlet utilizing the pulmonary embolus protocol. Images are reviewed in the axial, sagittal, coronal planes. 3-D MIPS images are created and assessed. Subsequently, CT scan of the abdomen and pelvis was performed from the lung bases to the proximal femora. Images are reviewed in the axial, sagittal, and coronal planes. IV contrast was administered without complication. A dose lowering technique was utilized adhering to the principles of ALARA. The examinations are degraded by motion artifact, as well as by streak artifact from the arms which could not be elevated above the chest or abdomen. CT DOSE: 2110.76 mGy.cm FINDINGS: CHEST: Thyroid: Atrophic and heterogeneous. Thoracic aorta: There is atherosclerotic calcification of the thoracic aorta, with is normal in caliber and demonstrates standard 3-vessel arch anatomy. No dissection is seen. Pulmonary vasculature: The main pulmonary arteries are mildly dilated suggesting pulmonary artery hypertension. There are no filling defects identified in the main, lobar, or segmental pulmonary arteries to indicate pulmonary embolus. Heart: The heart is mildly enlarged and without pericardial effusion. The mitral annulus is densely calcified. There are coronary artery calcifications. Lungs and pleural spaces: Emphysematous change is noted. Findings of chronic fibrotic lung disease are similar to previous, greatest the right apex. There is multifocal bronchiectasis. Subpleural reticulation is noted with foci of subpleural honeycombing and scarring. The trachea appears clear. There are trace pleural effusions. A trace chronic pleural collection at the right lung base is also unchanged. There are superimposed patchy airspace opacities throughout both lungs, greatest at the left lung base. Mediastinum: Mildly enlarged mediastinal lymph nodes are similar to previous. A high right peritracheal node on image #207 measures 14 mm in short axis. These are likely related to chronic lung disease. Brenna: Clear. Axillae: There is no axillary lymphadenopathy. Bony thorax: The skeletal structures are osteopenic. Degenerative change and hyperkyphosis is seen throughout the thoracic spine with evidence of DISH. No lytic or blastic lesions are identified. Advanced arthritic change is seen in the shoulders. There is chronic posttraumatic deformity of the right scapula and the left clavicle as well as healed right-sided rib fractures. Soft tissues: Metallic foreign bodies are present throughout the left chest wall. ABDOMEN AND PELVIS: Liver: The contrast-enhanced liver is normal in size, contour, and attenuation. There is no intrahepatic or ductal dilatation. The hepatic veins and portal veins are patent. Gallbladder: There are calcified gallstones with no CT evidence of acute cholecystitis. Spleen: Normal in size and attenuation. Pancreas: Moderately atrophic and grossly unremarkable. Adrenal glands: Unremarkable. Kidneys: The contrast enhanced kidneys are atrophic and without hydronephrosis. The kidneys enhance symmetrically. There are bilateral renal vascular calcifications. Scattered renal cysts measure up to 2.1 cm. Additional subcentimeter cortical hypodensities also likely represent cysts but are too small for definitive characterization. Abdominal vasculature: The abdominal aorta is normal in course and caliber noting advanced atherosclerotic calcification. Bowel: There is no bowel obstruction. Mild to moderate fecal retention is seen throughout the colon. The appendix is well-visualized and normal. Peritoneum: There is no intraperitoneal free air or abdominal ascites. Lymphadenopathy: None. Pelvic viscera: The bladder, prostate, and seminal vesicles are normal as v isualized. There are small bilateral fat-containing inguinal hernias, left larger than right. Skeletal structures: The skeletal structures are osteopenic. No lytic or blastic lesions are seen. Advanced degenerative change and deformity seen in the hips and pelvis. There are bilateral hip joint effusions/bursal fluid, similar appearance to previous. Numerous calcified joint bodies are present bilaterally. IMPRESSION: 1. Streak and motion compromised examination. 2. There is no evidence of pulmonary embolus in the main, lobar, or segmental pulmonary arteries. 3. Cardiomegaly, emphysema, and changes of chronic fibrotic lung disease as above. 4. Patchy airspace opacities are seen throughout both lungs, greatest in the left lower lobe. This suggests a superimposed infectious/inflammatory pneumonitis and/or congestive failure. Clinical correlation will be essential and radiographic follow-up to resolution is recommended. 5. No acute infectious or inflammatory findings are seen in the abdomen or pelvis. 6. Mild to moderate constipation. 7. Trace pleural effusions. 8. Cholelithiasis. 9. Additional findings as above. ACT 112: Negative or not required by law. Electronically signed by: Faustino Smallwood M.D. 09/02/2021 4:45 PM Chest CTA 09/02/21 15:11 CT ANGIOGRAM OF THE CHEST; CT SCAN OF THE ABDOMEN AND PELVIS WITH IV CONTRAST CLINICAL HISTORY: Dyspnea. Atypical chest pain. Generalized abdominal pain. COMPARISON STUDY: Chest x-ray dated 09/02/2021. Chest CT dated 09/30/2020. Abdominal CT dated 06/09/2021. TECHNIQUE: Following the IV administration of 120 of Optiray 320, CT angiogram of the chest is performed from the upper abdomen to the thoracic inlet utilizing the pulmonary embolus protocol. Images are reviewed in the axial, sagittal, coronal planes. 3-D MIPS images are created and assessed. Subsequently, CT scan of the abdomen and pelvis was performed from the lung bases to the proximal femora. Images are reviewed in the axial, sagittal, and coronal planes. IV contrast was administered without complication. A dose lowering technique was utilized adhering to the principles of ALARA. The examinations are degraded by motion artifact, as well as by streak artifact from the arms which could not be elevated above the chest or abdomen. CT DOSE: 2110.76 mGy.cm FINDINGS: CHEST: Thyroid: Atrophic and heterogeneous. Thoracic aorta: There is atherosclerotic calcification of the thoracic aorta, with is normal in caliber and demonstrates standard 3-vessel arch anatomy. No dissection is seen. Pulmonary vasculature: The main pulmonary arteries are mildly dilated suggesting pulmonary artery hypertension. There are no filling defects identified in the main, lobar, or segmental pulmonary arteries to indicate pulmonary embolus. Heart: The heart is mildly enlarged and without pericardial effusion. The mitral annulus is densely calcified. There are coronary artery calcifications. Lungs and pleural spaces: Emphysematous change is noted. Findings of chronic fibrotic lung disease are similar to previous, greatest the right apex. There is multifocal bronchiectasis. Subpleural reticulation is noted with foci of subpleural honeycombing and scarring. The trachea appears clear. There are trace pleural effusions. A trace chronic pleural collection at the right lung base is also unchanged. There are superimposed patchy airspace opacities throughout both lungs, greatest at the left lung base. Mediastinum: Mildly enlarged mediastinal lymph nodes are similar to previous. A high right peritracheal node on image #207 measures 14 mm in short axis. These are likely related to chronic lung disease. Brenna: Clear. Axillae: There is no axillary lymphadenopathy. Bony thorax: The skeletal structures are osteopenic. Degenerative change and hyperkyphosis is seen throughout the thoracic spine with evidence of DISH. No lytic or blastic lesions are identified. Advanced arthritic change is seen in the shoulders. There is chronic posttraumatic deformity of the right scapula and the left clavicle as well as healed right-sided rib fractures. Soft tissues: Metallic foreign bodies are present throughout the left chest wall. ABDOMEN AND PELVIS: Liver: The contrast-enhanced liver is normal in size, contour, and attenuation. There is no intrahepatic or ductal dilatation. The hepatic veins and portal veins are patent. Gallbladder: There are calcified gallstones with no CT evidence of acute cholecystitis. Spleen: Normal in size and attenuation. Pancreas: Moderately atrophic and grossly unremarkable. Adrenal glands: Unremarkable. Kidneys: The contrast enhanced kidneys are atrophic and without hydronephrosis. The kidneys enhance symmetrically. There are bilateral renal vascular calcifications. Scattered renal cysts measure up to 2.1 cm. Additional subcentimeter cortical hypodensities also likely represent cysts but are too small for definitive characterization. Abdominal vasculature: The abdominal aorta is normal in course and caliber noting advanced atherosclerotic calcification. Bowel: There is no bowel obstruction. Mild to moderate fecal retention is seen throughout the colon. The appendix is well-visualized and normal. Peritoneum: There is no intraperitoneal free air or abdominal ascites. Lymphadenopathy: None. Pelvic viscera: The bladder, prostate, and seminal vesicles are normal as visualized. There are small bilateral fat-containing inguinal hernias, left larger than right. Skeletal structures: The skeletal structures are osteopenic. No lytic or blastic lesions are seen. Advanced degenerative change and deformity seen in the hips and pelvis. There are bilateral hip joint effusions/bursal fluid, similar appearance to previous. Numerous calcified joint bodies are present bilaterally. IMPRESSION: 1. Streak and motion compromised examination. 2. There is no evidence of pulmonary embolus in the main, lobar, or segmental pulmonary arteries. 3. Cardiomegaly, emphysema, and changes of chronic fibrotic lung disease as above. 4. Patchy airspace opacities are seen throughout both lungs, greatest in the left lower lobe. This suggests a superimposed infectious/inflammatory pneumon itis and/or congestive failure. Clinical correlation will be essential and radiographic follow-up to resolution is recommended. 5. No acute infectious or inflammatory findings are seen in the abdomen or pelvis. 6. Mild to moderate constipation. 7. Trace pleural effusions. 8. Cholelithiasis. 9. Additional findings as above. ACT 112: Negative or not required by law. Electronically signed by: Faustino Smallwood M.D. 09/02/2021 4:45 PM Discharge Plan Visit Data Chief Complaint: Shortness of Breath/Dyspnea Stated Complaint: COUGH, SOB, WEEZING, CONSTIPATION ED Provider: Aly Martínez Discharge Problem: Pneumonia, Abdominal pain, Constipation, Acute hyponatremia Forms Stand Alone Forms: [facility] [employer] Prescriptions Prescriptions: No Action finasteride 5 mg tablet 5 mg PO HS Qty: 90 RF: 3 metoprolol succinate 50 mg tablet extended release 24 hr 50 mg PO QAM Qty: 90 RF: 3 ipratropium-albuterol 0.5 mg-3 mg(2.5 mg base)/3 mL solution for nebulization 3 ml INHALATION Q4H PRN (Reason: Shortness Of Breath) Qty: 180 RF: 3 cholecalciferol (vitamin D3) [Vitamin D3] 50 mcg (2,000 unit) capsule 50 mcg PO DAILY Qty: 90 RF: 3 magnesium oxide 400 mg (241.3 mg magnesium) tablet 400 mg PO QAM Qty: 90 RF: 3 famotidine 20 mg tablet 20 mg PO BID Qty: 60 RF: 5 ferrous sulfate 325 mg (65 mg iron) tablet 325 mg PO BID Qty: 180 RF: 1 tamsulosin 0.4 mg capsule 0.4 mg PO HS Qty: 90 RF: 1 hydrocodone-acetaminophen 5-325 mg tablet 1 tab PO TID Qty: 90 RF: 0 Asmanex Twisthaler 220 mcg/ actuation (30) aerosol powdr breath activated 220 mcg INHALATION HS Qty: 1 RF: 3 divalproex 250 mg tablet,delayed release (DR/EC) 250 mg PO BID RF: 0 clozapine 100 mg tablet 300 mg PO HS RF: 0 cyanocobalamin (vitamin B-12) 1,000 mcg Tablet 1,000 mcg PO 2XWK RF: 0 aspirin 81 mg tablet,delayed release (DR/EC) 81 mg PO HS RF: 0 magnesium hydroxide [Milk of Magnesia] 400 mg/5 mL Suspension 30 ml PO UD PRN (Reason: Constipation) RF: 0 divalproex 125 mg tablet,delayed release (DR/EC) 125 mg PO BID RF: 0 furosemide 20 mg Tablet 20 mg PO BID RF: 0 acetaminophen 500 mg Capsule 500 mg PO Q6 PRN (Reason: Pain) RF: 0 phenazopyridine [Pyridium] 200 mg tablet 200 mg PO Q8H PRN (Reason: pain) Qty: 10 RF: 0 atorvastatin 40 mg tablet 40 mg PO HS RF: 0 polyethylene glycol 3350 17 gram powder in packet 17 g PO BID PRN (Reason: Constipation) RF: 0 levothyroxine 75 mcg tablet 75 mcg PO QAM RF: 0 sennosides 8.6 mg tablet 17.2 mg PO BID PRN (Reason: Constipation) RF: 0 bisacodyl [Dulcolax (bisacodyl)] 5 mg tablet,delayed release (DR/EC) 5 mg PO DAILY PRN (Reason: constipation) Qty: 30 RF: 0 Referrals Referrals: Jong Weir MD [Primary Care Provider] - Discharge Problem: Pneumonia Qualifiers: Pneumonia type: due to unspecified organism Laterality: unspecified laterality Lung location: unspecified part of lung Qualified Code(s): J18.9 - Pneumonia, unspecified organism Abdominal pain Qualifiers: Abdominal location: unspecified location Qualified Code(s): R10.9 - Unspecified abdominal pain Constipation Qualifiers: Constipation type: unspecified constipation type Qualified Code(s): K59.00 - Constipation, unspecified
--- NOTE | 2021-09-02 15:43 | XRay Report ---
SINGLE VIEW CHEST CLINICAL HISTORY: Atypical chest pain. Cough. FINDINGS: An AP, portable, upright chest radiograph is compared to study dated 08/27/2021 and correla edwardo with chest CT dated 09/30/2020. The heart is mildly enlarged noting atherosclerotic calcification of the thoracic aorta. Fibrotic change is again seen throughout both lungs with right greater than le ft apical fibrosis. Airspace opacities in the mid to lower lungs have increased from prior examinatio ns. Diffuse bronchiectasis is noted. No large pleural effusion or pneumothorax is seen. The skeletal structures are osteopenic. The bony thorax is grossly intact. Advanced arthritic change is seen in th e shoulders. Radiodense/metallic foreign bodies are again seen projecting over the left chest. IMPRESSION: 1. Cardiomegaly and chronic fibrotic lung disease. 2. There are increasing airspace opacities in the mid to lower lungs as compared to prior examination s. This could represent a superimposed infectious/inflammatory pneumonitis and/or congestive failure/ pulmonary edema. Clinical correlation will be required. Radiographic follow-up to resolution is recom mended. ACT 112: Negative or not required by law. Electronically signed by: Faustino Smallwood M.D. 09/02/2021 3:42 PM
[2021-09-02 15:44] LABS: Hematocrit (blood only) 29.8 % (42-52); Hemoglobin 9.4 g/dL (14.0-18.0); Mean Corpuscular Hemoglobin 29.1 pg (25-34); Mean Corpuscular Hgb Conc 31.5 g/dL (32-36); Mean Corpuscular Volume 92.3 fL (80-100); Mean Platelet Volume 8.8 fL (7.4-10.4); Platelet Count 217 K/uL (130-400); RDW Coefficient of Variation 13.7 % (11.5-14.5); Red Blood Count 3.23 M/uL (4.7-6.1); White Blood Count 12.07 K/uL (4.8-10.8)
[2021-09-02 15:53] LABS: HCO3 VBG 31 mmol/L; PCO2 VBG 64 mmHg (38-50); PO2 VBG 35 mmHg
[2021-09-02 15:55] LABS: Oxygen Saturation VBG < 60.0 %
[2021-09-02 16:01] LABS: Alanine Aminotransferase 11 U/L (12-78); Albumin Level 2.4 gm/dl (3.4-5.0); Aspartate Aminotransferase 13 U/L (15-37); BUN Creatinine Ratio 21.2 (10-20); Blood Urea Nitrogen 24 mg/dl (7-18); Calcium 8.9 mg/dl (8.5-10.1); Carbon Dioxide 28 mmol/L (21-32); Chloride 93 mmol/L (98-107); Creatinine Clr Calc Pharmacy 68.2 ml/min; Est GFR (African American) 76.2 ml/min; Est GFR (Non-African American) 65.7 ml/min; Glucose 82 mg/dl (70-99); Lipase 128 U/L (73-393); Potassium 4.8 mmol/L (3.5-5.1); Sodium 128 mmol/L (136-145)
[2021-09-02 16:05] LABS: Albumin Globulin Ratio 0.5 (0.9-2); Alkaline Phosphatase 89 U/L (45-117); Bilirubin,Total 0.3 mg/dl (0.2-1); Globulin 5.1 gm/dl (2.5-4.0); Total Protein 7.5 gm/dl (6.4-8.2); Troponin I < 0.015 ng/ml (0-0.045)
[2021-09-02 16:06] LABS: Basophils # (auto) 0.05 K/uL (0-0.2); Basophils % (auto) 0.4 %; Eosinophils % (auto) 3.3 %; Immature Granulocytes # (auto) 1.12 K/uL (0.00-0.02); Immature Granulocytes % (auto) 9.3 %; Lymphocytes # (auto) 1.78 K/uL (1.2-3.4); Lymphocytes % (auto) 14.7 %; Monocytes # (auto) 1.68 K/uL (0.11-0.59); Monocytes % (auto) 13.9 %; Neutrophils # (auto) 7.04 K/uL (1.4-6.5); Neutrophils % (auto) 58.4 %; Polychromasia 1+
[2021-09-02 16:09] LABS: Appearance Urine Clear (Clear); Bilirubin Urine Negative (Negative); Blood Urine Negative (Negative); Color Urine Yellow; Glucose Urine UA Negative (Negative); Ketones Urine Negative (Negative); Leukocyte Esterase Urine Negative (Negative); Nitrite Urine Negative (Negative); Protein Urine Negative (Negative); Specific Gravity Urine 1.012 (1.000-1.030); Urobilinogen Urine Negative (Negative); pH Urine 6.5 (4.5-7.5)
[2021-09-02] MEDS ORDERED: OPTIRAY 320 125ml IV ONE (16:27)
--- NOTE | 2021-09-02 16:46 | CT Scan Report ---
CT ANGIOGRAM OF THE CHEST; CT SCAN OF THE ABDOMEN AND PELVIS WITH IV CONTRAST CLINICAL HISTORY: Dyspnea. Atypical chest pain. Generalized abdominal pain. COMPARISON STUDY: Chest x-ray dated 09/02/2021. Chest CT dated 09/30/2020. Abdominal CT dated . TECHNIQUE: Following the IV administration of 120 of Optiray 320, CT angiogram of the chest is perfor med from the upper abdomen to the thoracic inlet utilizing the pulmonary embolus protocol. Images are reviewed in the axial, sagittal, coronal planes. 3-D MIPS images are created and assessed. Subsequen tly, CT scan of the abdomen and pelvis was performed from the lung bases to the proximal femora. Imag es are reviewed in the axial, sagittal, and coronal planes. IV contrast was administered without comp lication. A dose lowering technique was utilized adhering to the principles of ALARA. The examination s are degraded by motion artifact, as well as by streak artifact from the arms which could not be oumar vated above the chest or abdomen. CT DOSE: 2110.76 mGy.cm FINDINGS: CHEST: Thyroid: Atrophic and heterogeneous. Thoracic aorta: There is atherosclerotic calcification of the thoracic aorta, with is normal in calib er and demonstrates standard 3-vessel arch anatomy. No dissection is seen. Pulmonary vasculature: The main pulmonary arteries are mildly dilated suggesting pulmonary artery hyp ertension. There are no filling defects identified in the main, lobar, or segmental pulmonary arterie s to indicate pulmonary embolus. Heart: The heart is mildly enlarged and without pericardial effusion. The mitral annulus is densely c alcified. There are coronary artery calcifications. Lungs and pleural spaces: Emphysematous change is noted. Findings of chronic fibrotic lung disease ar e similar to previous, greatest the right apex. There is multifocal bronchiectasis. Subpleural reticu lation is noted with foci of subpleural honeycombing and scarring. The trachea appears clear. There a re trace pleural effusions. A trace chronic pleural collection at the right lung base is also unchang ed. There are superimposed patchy airspace opacities throughout both lungs, greatest at the left lung base. Mediastinum: Mildly enlarged mediastinal lymph nodes are similar to previous. A high right peritrache al node on image #207 measures 14 mm in short axis. These are likely related to chronic lung disease. Brenna: Clear. Axillae: There is no axillary lymphadenopathy. Bony thorax: The skeletal structures are osteopenic. Degenerative change and hyperkyphosis is seen th roughout the thoracic spine with evidence of DISH. No lytic or blastic lesions are identified. Advanc ed arthritic change is seen in the shoulders. There is chronic posttraumatic deformity of the right s capula and the left clavicle as well as healed right-sided rib fractures. Soft tissues: Metallic foreign bodies are present throughout the left chest wall. ABDOMEN AND PELVIS: Liver: The contrast-enhanced liver is normal in size, contour, and attenuation. There is no intrahepa tic or ductal dilatation. The hepatic veins and portal veins are patent. Gallbladder: There are calcified gallstones with no CT evidence of acute cholecystitis. Spleen: Normal in size and attenuation. Pancreas: Moderately atrophic and grossly unremarkable. Adrenal glands: Unremarkable. Kidneys: The contrast enhanced kidneys are atrophic and without hydronephrosis. The kidneys enhance s ymmetrically. There are bilateral renal vascular calcifications. Scattered renal cysts measure up to 2.1 cm. Additional subcentimeter cortical hypodensities also likely represent cysts but are too small for definitive characterization. Abdominal vasculature: The abdominal aorta is normal in course and caliber noting advanced atheroscle rotic calcification. Bowel: There is no bowel obstruction. Mild to moderate fecal retention is seen throughout the colon. The appendix is well-visualized and normal. Peritoneum: There is no intraperitoneal free air or abdominal ascites. Lymphadenopathy: None. Pelvic viscera: The bladder, prostate, and seminal vesicles are normal as visualized. There are small bilateral fat-containing inguinal hernias, left larger than right. Skeletal structures: The skeletal structures are osteopenic. No lytic or blastic lesions are seen. Ad vanced degenerative change and deformity seen in the hips and pelvis. There are bilateral hip joint e ffusions/bursal fluid, similar appearance to previous. Numerous calcified joint bodies are present bi laterally. IMPRESSION: 1. Streak and motion compromised examination. 2. There is no evidence of pulmonary embolus in the main, lobar, or segmental pulmonary arteries. 3. Cardiomegaly, emphysema, and changes of chronic fibrotic lung disease as above. 4. Patchy airspace opacities are seen throughout both lungs, greatest in the left lower lobe. This chopra ggests a superimposed infectious/inflammatory pneumonitis and/or congestive failure. Clinical correla tion will be essential and radiographic follow-up to resolution is recommended. 5. No acute infectious or inflammatory findings are seen in the abdomen or pelvis. 6. Mild to moderate constipation. 7. Trace pleural effusions. 8. Cholelithiasis. 9. Additional findings as above. ACT 112: Negative or not required by law. Electronically signed by: Faustino Smallwood M.D. 09/02/2021 4:45 PM
--- NOTE | 2021-09-02 16:58 | Electrocardiogram Report ---
Test Reason : Blood Pressure : / mmHG Vent. Rate : 084 BPM Atrial Rate : 084 BPM P-R Int : 208 ms QRS Dur : 094 ms QT Int : 394 ms P-R-T Axes : 042 -23 043 degrees QTc Int : 465 ms Poor data quality, interpretation may be adversely affected Normal sinus rhythm Normal ECG When compared with ECG of 01-APR-2021 12:59, No significant change was found Confirmed by Khari Lunsford ([id number]) on 09/02/2021 4:58:35 PM Referred By: Confirmed By:Aniket Lunsford
[2021-09-02] MEDS ORDERED: cefTRIAXone SODIUM 1,000 MG/50 ML BAG IV STA (17:20)
[2021-09-02 17:41] LABS: NT Pro B Type Natriuretic Pept 10197 pg/ml (0-900)
[2021-09-02 18:33] LABS: C Reactive Protein 8.94 mg/dl (0-0.29)
[2021-09-02] MEDS ORDERED: FUROSEMIDE 40 MG/4 ML VIAL IV STA (18:34)
--- NOTE | 2021-09-02 18:41 | History & Physical Report ---
Date of Service September 02, 2021 Assessment & Plan (1) Pneumonia: Plan: 70-year-old male coming from [place] and history of prior Mycobacterium avium infection, chronic hypoxic respiratory failure in setting of interstitial lung disease on baseline 2 L nasal cannula, anemia, seizure disorder, chronic HFpEF, hypothyroidism, stage III CKD, history of nephrolithiasis, hypertension, GERD, CAD who presented to [facility] at recommendation of PCP for evaluation of cough and congestion for approximately 5 days, currently suspect secondary to acute HFpEF and possible PNA vs. pneumonitis. Cough, Shortness of Breath / Acute Hypercapnic Respiratory Failure atop Chronic Hypoxic Respiratory Failure Approximately 7 days of worsening cough, shortness of breath in the setting of pre-existing interstitial lung disease and chronic hypoxic respiratory failure requiring 2 L of oxygen at baseline Work-up as follows: Evidence of diffuse crackles on exam, with mildly elevated jugular venous p ulse and 1+ pitting edema bilaterally. No increased O2 requirement. Leukocytosis to 12, with left shift VBG demonstrating mild acidosis (7.3) with hypercarbia (64) CRP elevated to 9 BNP elevated at 10,200 ; troponin negative ; ECG wnl Mildly depressed albumin at 2.4 Pro-Sin pending Covid negative Chest CT demonstrating patchy bilateral airspace opacities, greatest in the left lower lobe. No evidence of PE. Suspect multiple etiologies: Likely component of hypervolemia/acute HFpEF, possible pneumonitis/developing pneumonia Diuresis: Lasix 40 mg IV twice daily Antibiotics: Given alf living situation and recent hospital admission, cover extensively for gram-negative's and atypicals with cefepime and doxy Nebulizers: DuoNebs every 4 hours, albuterol as needed Steroids: Defer for now, if worsening, consider adding IV methylprednisolone Check sputum culture, MRSA nare Check RSV and Influenza Fluid restriction, daily weights Hypervolemia in setting of H/O HFpEF Last echo on 07/2019 demonstrating mild cLVH, severe mitral annular calcification, LVEF 65 to 70% As above: In setting of hypervolemia on exam and imaging findings concerning for pulmonary edema, will treat as HFpEF exacerbation Initiate Lasix 40 mg IV twice daily (hold home Lasix) Continue metoprolol succinate 50 mg daily Check TTE Fluid restriction under 2 L, low-sodium diet, monitor intake and output, daily weights Pneumonitis versus Possible PNA Chest CT with patchy bilateral airspace opacities, greatest in the left lower lobe Cefepime and doxycycline, as abovecan consider downgrading for MRSA coverage once MRSA nare returns Hold from steroids for now Check RSV, influenza Check sputum culture Hyponatremia Suspect hypervolemic hyponatremia; in setting of possible pneumonia/pneumonitis, also possible SIADH may be applied Suspect will improve with diuresis Check Valentine, UCr, Uosm to further characterize Check BMP in a.m. Normocytic anemia Hemoglobin at admission noted to be 9.4, consistent with previous values over the last 2 months Patient previously worked up for iron deficiency anemia per previous notes. No signs or symptoms of GI bleeding at present. Recheck iron panel in a.m. Continue iron supplementation Interstitial Lung Disease On record review, patient has previously followed with Dr. Wild of [facility] Appreciated on chest CT Continue Asmanex, duo nebs scheduled as above Constipation Patient with history of functional small bowel obstruction, no previous abdominal surgeries No evidence of small bowel obstruction or ileus on CT abdomen pelvis Scheduled MiraLAX and senna. Consider adding Dulcolax or mineral oil Sleep apnea May use home CPAP Stage III CKD Baseline creatinine approximately 1.2 --seems to be at baseline Continue to monitor Hypothyroidism Continue levothyroxine CAD Continue home ASA, atorvastatin GERD Continue famotidine BPH continue home Flomax Seizure disorder No acute needs, continue Depakote Code: DNR/DNI, confirmed with patient and caregiver Diet: Heart healthy, sodium restriction, fluid restriction Prophylaxis: Lovenox Dispo: MS/telemetry, can consider downgrading to MedSurg after 24 hours (2) Acute hyponatremia: (3) Abdominal pain: (4) Edema of both lower extremities: (5) Abdominal pain: (6) Hypoxemia: (7) Chronic diastolic CHF (congestive heart failure): (8) Acute and chronic respiratory failure with hypoxia: (9) CKD (chronic kidney disease), stage III: (10) Chronic respiratory failure with hypoxia: (11) Interstitial lung disease: (12) Paranoid schizophrenia: (13) CAD in [place] artery: (14) Hypertension: (15) GERD (gastroesophageal reflux disease): (16) Seizure disorder: History of Present Illness Chief Complaint: cough, congestion, dyspnea Primary Care Provider: Jong Weir MD 70-year-old male coming from [place] and history of prior Mycobacterium avium infection, chronic hypoxic respiratory failure in setting of interstitial lung disease on baseline 2 L nasal cannula, anemia, seizure disorder, chronic HFpEF, hypothyroidism, history of nephrolithiasis, hypertension, GERD, CAD who presented to [facility] at recommendation of PCP for evaluation of cough and congestion for approximately 5 days. 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 Generally speaking, he also reports feeling "off." He denies any fevers, chills, night sweats. He has been taking his medications and nebulizers as prescribed. Is a does add that he has not been responding as well to his nebulizers as he had in the past. Denies any recent infections preceding this. None of his housemates are sick. He has still been able to eat. No nausea or vomiting. He was seen by his PCP on 08/28, where he tested negative for Covid and was given 5 days of azithromycin. Unfortunately, he did not demonstrate adequate response to this. In the room, he reports feeling ill. He complains that coughing is his biggest concern. He does add that he has been unable to sleep due to cough and shortness of breath. Gets worse as he lies down. He says that, at baseline, he struggles with abdominal pain. Has not had a bowel movement since . In the ER, patient was found to have normal vital signs on his baseline oxygen. His weight was 91.9 kg on admission, last recorded at 76.7 kg on 08/21. He was found to have mild leukocytosis to 12 with left shift, hyponatremia to 128, CRP of 9, BNP at 10,200, negative troponin, normal lipase. CTA did demonstrate cardiomegaly, emphysema, chronic fibrotic lung disease, as well as patchy airspace opacities, greatest in the left lower lobe. CT of abdomen pelvis demonstrated mild to moderate constipation. He was given ceftriaxone 1 mg. Allergies Allergy/AdvReac Type Severity Reaction Status Date / Time diltiazem Allergy Intermediate rash and Verified 09/02/21 16:53 edema fentanyl AdvReac Severe Confusion Verified 09/02/21 16:53 Home Medications Medication Instructions Recorded Confirmed Type acetaminophen 500 mg capsule 500 mg PO Q6 PRN 12/10/20 09/02/21 History aspirin 81 mg tablet,delayed 81 mg PO HS 12/10/20 09/02/21 History release clozapine 100 mg tablet 300 mg PO HS 12/10/20 09/02/21 History cyanocobalamin (vitamin B-12) 1,000 mcg PO 2XWK 12/10/20 09/02/21 History 1,000 mcg tablet divalproex 125 mg tablet,delayed 125 mg PO BID 12/10/20 09/02/21 History release divalproex 250 mg tablet,delayed 250 mg PO BID 12/10/20 09/02/21 History release furosemide 20 mg tablet 20 mg PO BID 12/10/20 09/02/21 History magnesium hydroxide 400 mg/5 mL 30 ml PO UD PRN 12/10/20 09/02/21 History oral suspension (Milk of Magnesia) finasteride 5 mg tablet 5 mg PO HS #90 tab 01/02/21 09/02/21 Rx metoprolol succinate 50 mg 50 mg PO QAM #90 tab 03/27/21 09/02/21 Rx tablet,extended release 24 hr phenazopyridine 200 mg tablet 200 mg PO Q8H PRN #10 tab 04/06/21 09/02/21 Rx (Pyridium) ipratropium 0.5 mg-albuterol 3 mg 3 ml INHALATION Q4H PRN #180 ml 04/17/21 09/02/21 Rx (2.5 mg base)/3 mL nebulization soln bisacodyl 5 mg tablet,delayed 5 mg PO DAILY PRN #30 tab 06/11/21 09/02/21 Rx release (Dulcolax (bisacodyl)) cholecalciferol (vitamin D3) 50 50 mcg PO DAILY #90 cap 06/17/21 09/02/21 Rx mcg (2,000 unit) capsule (Vitamin D3) famotidine 20 mg tablet 20 mg PO BID #60 tab 06/17/21 09/02/21 Rx magnesium oxide 400 mg (241.3 mg 400 mg PO QAM #90 tab 06/17/21 09/02/21 Rx magnesium) tablet ferrous sulfate 325 mg (65 mg 325 mg PO BID #180 tab 06/18/21 09/02/21 Rx iron) tablet tamsulosin 0.4 mg capsule 0.4 mg PO HS #90 cap 07/17/21 09/02/21 Rx atorvastatin 40 mg tablet 40 mg PO HS 08/21/21 09/02/21 History levothyroxine 75 mcg tablet 75 mcg PO QAM 08/21/21 09/02/21 History polyethylene glycol 3350 17 gram 17 g PO BID PRN 08/21/21 09/02/21 History oral powder packet hydrocodone 5 mg-acetaminophen 325 1 tab PO TID #90 tab 08/26/21 09/02/21 Rx mg tablet mometasone (Asmanex Twisthaler) 220 mcg INHALATION HS #1 ea 08/26/21 09/02/21 Rx sennosides 8.6 mg tablet 17.2 mg PO BID PRN 08/27/21 09/02/21 History Past Med/Surg History Medical History Anemia chronic, baseline hgb 10s per chart review Asthma Avascular necrosis BPH (benign prostatic hyperplasia) CAD in [place] artery Per [facility] cardio, "presumed CAD" based on coronary artery calcifications noted on imaging Cavitary lesion of lung Chronic hypoxemic respiratory failure Chronic kidney disease (CKD), stage III (moderate) Chronic pain Dysphagia Edema GERD (gastroesophageal reflux disease) Hiatal hernia Hypercholesterolemia Hypertension Hypothyroidism Inappropriate ADH syndrome Interstitial lung disease On 2L O2 continuous via NC Nontuberculous mycobacterial disease of lung Following with [facility] pulmonary ([place]) Obstructive sleep apnea On 2L O2 continuous via NC Paranoid schizophrenia SBO (small bowel obstruction) Seizure disorder Remote hx several years ago, no seizures since anticonvulsant initiation per [place] aid 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 No mention of LVOT obstruction, only mild concentric LVH. Echo was reviewed by cardiology 12/2019, felt no further cardiac workup needed. Surgical History History of breast surgery Possible History of bronchoscopy History of cardiac cath Remote > no stents History of cataract surgery R/L History of colonoscopy History of cystoscopy Left cystoscopy, ureteronephroscopy, retropyelogram (10/06/20): LMA#5 at [facility] Family History Father Prostate cancer Mother Lung cancer Denies family history of Breast cancer Colorectal cancer Social History Smoking Status: Never smoker Tobacco Type: Cigarettes Age Quit Using Tobacco: 38; Second Hand Exposure: No; Hx Alcohol Use: No Hx Substance Use: No Preferred Language: Turkish Communication Ability: Effective Visual Impairment: No Limitations Hearing Ability: Normal 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 Beliefs That Will Affect Care: None marital status: Single Current Living Situation: Other Current Living Situation Comment: [place] [facility] current occupational status: retired How many Children do You have: 0 Other Information That Helps Us Care for You: No Feels Safe at Home: Yes Safety Concerns: Feels Safe At This Time Seatbelt Use: always Assistive Devices: CPAP, Denture - Upper, Denture - Lower, Glasses, Oxygen - Continuous, Walker and Wheelchair Review of Systems Review of Systems: as per HPI Physical Exam Physical Exam: General: Tired appearing 62-year-old male who is lying back in his hospital bed, relaxed upon my arrival. He appears mildly toxic. Aide at bedside. No acute distress. HEENT: NCAT. Eyes - Sclera are white, anicteric, and without injection. PERRL. EOMs display full ROM bilaterally. Mouth - MMM with no tonsillar edema or exudates. Neck - supple and without LAD. Jugular venous pulse noticed approximately 2 to 3 fingerbreadths above the right clavicle, hepatojugular reflex positive. Cardiac: Normal rate and regular rhythm; S1 and S2 present with no murmurs, rubs, or gallops. JVD as above. 1+ peripheral edema in the lower extremities bilaterally. Pulmonary: Mildly increased respiratory effort with symmetric expansion of chest. No use of accessory muscles. Lungs do demonstrate intermittent inspiratory wheezes within the upper lobes, as well as scattered crackles throughout all lung maier, most appreciable at the left lung base. No conversational dyspnea. Abdominal: Normoactive bowel sounds. Abdomen was mildly distended within the right quadrants. Nontender to palpation. No rebound or guarding. Extremities: Upper and lower extremities are warm and well perfused. Radial and dorsalis pedis pulses were 2+ b/l. Capillary refill assessed in UE was < 3 sec. 1+ peripheral edema in the lower extremities bilaterally. Results & Data Results & Data ([facility]) Vital Signs (Past 12 Hours) Vital Signs Temp Pulse Resp BP Pulse Ox 09/02/21 17:00 84 22 118/58 L 97 09/02/21 16:30 82 18 109/51 L 97 09/02/21 16:00 79 24 94 09/02/21 15:37 91 09/02/21 15:30 83 24 120/64 09/02/21 14:40 87 20 98 09/02/21 14:08 36.7 C 85 18 113/62 97 Laboratory Results Laboratory Results - last 24 hr 09/02/21 09/02/21 09/02/21 15:30 15:30 15:30 WBC 12.07 H RBC 3.23 L Hgb 9.4 L Hct 29.8 L MCV 92.3 MCH 29.1 MCHC 31.5 L RDW Std Deviation 46.0 RDW Coeff of Nakia 13.7 Plt Count 217 MPV 8.8 Immature Gran % (Auto) 9.3 Neut % (Auto) 58.4 Lymph % (Auto) 14.7 [place]ock % (Auto) 13.9 Eos % (Auto) 3.3 Baso % (Auto) 0.4 Neut # (Auto) 7.04 H Lymph # (Auto) 1.78 [place]ock # (Auto) 1.68 H Eos # (Auto) 0.40 Baso # (Auto) 0.05 Immature Gran # (Auto) 1.12 H Polychromasia 1+ VBG pH VBG pCO2 VBG pO2 VBG HCO3 VBG O2 Saturation VBG Base Excess Barometric Pressure Sodium 128 L Potassium 4.8 Chloride 93 L Carbon Dioxide 28 Anion Gap 7.0 BUN 24 H Creatinine 1.14 Est Cr Clr Drug Dosing 68.2 Est GFR ( Amer) 76.2 Est GFR (Non-Af Amer) 65.7 BUN/Creatinine Ratio 21.2 H Glucose 82 Calcium 8.9 Total Bilirubin 0.3 AST 13 L ALT 11 L Alkaline Phosphatase 89 Troponin I < 0.015 C-Reactive Protein 8.94 H NT-Pro-B Natriuret Pep 60330 H Total Protein 7.5 Albumin 2.4 L Globulin 5.1 H Albumin/Globulin Ratio 0.5 L Lipase 128 Procalcitonin Urine Color Urine Appearance Urine pH Ur Specific [place] Urine Protein Urine Glucose (UA) Urine Ketones Urine Blood Urine Nitrite Urine Bilirubin Urine Urobilinogen Ur Leukocyte Esterase Nasal Screen MRSA (PCR) Valproic Acid 61 COVID-19 Eval Order SARS-CoV-2 (PCR) Influenza Type A Ag Influenza Type B Ag RSV (Molecular) 09/02/21 09/02/21 09/02/21 15:30 15:42 15:42 WBC RBC Hgb Hct MCV MCH MCHC RDW Std Deviation RDW Coeff of Nakia Plt Count MPV Immature Gran % (Auto) Neut % (Auto) Lymph % (Auto) [place] % (Auto) Eos % (Auto) Baso % (Auto) Neut # (Auto) Lymph # (Auto) [place] # (Auto) Eos # (Auto) Baso # (Auto) Immature Gran # (Auto) Polychromasia VBG pH 7.30 L VBG pCO2 64 H VBG pO2 35 VBG HCO3 31 VBG O2 Saturation < 60.0 VBG Base Excess 3.0 Barometric Pressure 738.6 Sodium Potassium Chloride Carbon Dioxide Anion Gap BUN Creatinine Est Cr Clr Drug Dosing Est GFR ( Amer) Est GFR (Non-Af Amer) BUN/Creatinine Ratio Glucose Calcium Total Bilirubin AST ALT Alkaline Phosphatase Troponin I C-Reactive Protein NT-Pro-B Natriuret Pep Total Protein Albumin Globulin Albumin/Globulin Ratio Lipase Procalcitonin Urine Color Urine Appearance Urine pH Ur Specific [place] Urine Protein Urine Glucose (UA) Urine Ketones Urine Blood Urine Nitrite Urine Bilirubin Urine Urobilinogen Ur Leukocyte Esterase Nasal Screen MRSA (PCR) Valproic Acid COVID-19 Eval Order Covid19 at [facility] SARS-CoV-2 (PCR) NEGATIVE Influenza Type A Ag Influenza Type B Ag RSV (Molecular) 09/02/21 09/02/21 09/02/21 16:00 18:48 22:00 WBC RBC Hgb Hct MCV MCH MCHC RDW Std Deviation RDW Coeff of Nakia Plt Count MPV Immature Gran % (Auto) Neut % (Auto) Lymph % (Auto) [place] % (Auto) Eos % (Auto) Baso % (Auto) Neut # (Auto) Lymph # (Auto) [place] # (Auto) Eos # (Auto) Baso # (Auto) Immature Gran # (Auto) Polychromasia VBG pH VBG pCO2 VBG pO2 VBG HCO3 VBG O2 Saturation VBG Base Excess Barometric Pressure Sodium Potassium Chloride Carbon Dioxide Anion Gap BUN Creatinine Est Cr Clr Drug Dosing Est GFR ( Amer) Est GFR (Non-Af Amer) BUN/Creatinine Ratio Glucose Calcium Total Bilirubin AST ALT Alkaline Phosphatase Troponin I C-Reactive Protein NT-Pro-B Natriuret Pep Total Protein Albumin Globulin Albumin/Globulin Ratio Lipase Procalcitonin < 0.05 Urine Color Yellow Urine Appearance Clear Urine pH 6.5 Ur Specific [place] 1.012 Urine Protein Negative Urine Glucose (UA) Negative Urine Ketones Negative Urine Blood Negative Urine Nitrite Negative Urine Bilirubin Negative Urine Urobilinogen Negative Ur Leukocyte Esterase Negative Nasal Screen MRSA (PCR) Valproic Acid COVID-19 Eval Order SARS-CoV-2 (PCR) Influenza Type A Ag Influenza Type B Ag RSV (Molecular) Pending 09/02/21 09/02/21 22:00 22:00 WBC RBC Hgb Hct MCV MCH MCHC RDW Std Deviation RDW Coeff of Nakia Plt Count MPV Immature Gran % (Auto) Neut % (Auto) Lymph % (Auto) [place] % (Auto) Eos % (Auto) Baso % (Auto) Neut # (Auto) Lymph # (Auto) [place] # (Auto) Eos # (Auto) Baso # (Auto) Immature Gran # (Auto) Polychromasia VBG pH VBG pCO2 VBG pO2 VBG HCO3 VBG O2 Saturation VBG Base Excess Barometric Pressure Sodium Potassium Chloride Carbon Dioxide Anion Gap BUN Creatinine Est Cr Clr Drug Dosing Est GFR ( Amer) Est GFR (Non-Af Amer) BUN/Creatinine Ratio Glucose Calcium Total Bilirubin AST ALT Alkaline Phosphatase Troponin I C-Reactive Protein NT-Pro-B Natriuret Pep Total Protein Albumin Globulin Albumin/Globulin Ratio Lipase Procalcitonin Urine Color Urine Appearance Urine pH Ur Specific [place] Urine Protein Urine Glucose (UA) Urine Ketones Urine Blood Urine Nitrite Urine Bilirubin Urine Urobilinogen Ur Leukocyte Esterase Nasal Screen MRSA (PCR) Pending Valproic Acid COVID-19 Eval Order SARS-CoV-2 (PCR) Influenza Type A Ag Pending Influenza Type B Ag Pending RSV (Molecular) Diagnostic Findings Chest X-Ray 09/02/21 14:57 SINGLE VIEW CHEST CLINICAL HISTORY: Atypical chest pain. Cough. FINDINGS: An AP, portable, upright chest radiograph is compared to study dated 08/27/2021 and correlated with chest CT dated 09/30/2020. The heart is mildly enlarged noting atherosclerotic calcification of the thoracic aorta. Fibrotic change is again seen throughout both lungs with right greater than left apical fibrosis. Airspace opacities in the mid to lower lungs have increased from prior examinations. Diffuse bronchiectasis is noted. No large pleural effusion or pneumothorax is seen. The skeletal structures are osteopenic. The bony thorax is grossly intact. Advanced arthritic change is seen in the shoulders. Radiodense/metallic foreign bodies are again seen projecting over the left chest. IMPRESSION: 1. Cardiomegaly and chronic fibrotic lung disease. 2. There are increasing airspace opacities in the mid to lower lungs as compared to prior examinations. This could represent a superimposed infectious/inflammatory pneumonitis and/or congestive failure/pulmonary edema. Clinical correlation will be required. Radiographic follow-up to resolution is recommended. ACT 112: Negative or not required by law. Electronically signed by: Faustino Smallwood M.D. 09/02/2021 3:42 PM Abdomen/Pelvis CT 09/02/21 15:07 CT ANGIOGRAM OF THE CHEST; CT SCAN OF THE ABDOMEN AND PELVIS WITH IV CONTRAST CLINICAL HISTORY: Dyspnea. Atypical chest pain. Generalized abdominal pain. COMPARISON STUDY: Chest x-ray dated 09/02/2021. Chest CT dated 09/30/2020. Abdominal CT dated 06/09/2021. TECHNIQUE: Following the IV administration of 120 of Optiray 320, CT angiogram of the chest is performed from the upper abdomen to the thoracic inlet utilizing the pulmonary embolus protocol. Images are reviewed in the axial, sagittal, cor onal planes. 3-D MIPS images are created and assessed. Subsequently, CT scan of the abdomen and pelvis was performed from the lung bases to the proximal femora. Images are reviewed in the axial, sagittal, and coronal planes. IV contrast was administered without complication. A dose lowering technique was utilized adhering to the principles of ALARA. The examinations are degraded by motion artifact, as well as by streak artifact from the arms which could not be elevated above the chest or abdomen. CT DOSE: 2110.76 mGy.cm FINDINGS: CHEST: Thyroid: Atrophic and heterogeneous. Thoracic aorta: There is atherosclerotic calcification of the thoracic aorta, with is normal in caliber and demonstrates standard 3-vessel arch anatomy. No dissection is seen. Pulmonary vasculature: The main pulmonary arteries are mildly dilated suggesting pulmonary artery hypertension. There are no filling defects identified in the main, lobar, or segmental pulmonary arteries to indicate pulmonary embolus. Heart: The heart is mildly enlarged and without pericardial effusion. The mitral annulus is densely calcified. There are coronary artery calcifications. Lungs and pleural spaces: Emphysematous change is noted. Findings of chronic fibrotic lung disease are similar to previous, greatest the right apex. There is multifocal bronchiectasis. Subpleural reticulation is noted with foci of subpleural honeycombing and scarring. The trachea appears clear. There are trace pleural effusions. A trace chronic pleural collection at the right lung base is also unchanged. There are superimposed patchy airspace opacities throughout both lungs, greatest at the left lung base. Mediastinum: Mildly enlarged mediastinal lymph nodes are similar to previous. A high right peritracheal node on image #207 measures 14 mm in short axis. These are likely related to chronic lung disease. Brenna: Clear. Axillae: There is no axillary lymphadenopathy. Bony thorax: The skeletal structures are osteopenic. Degenerative change and hyperkyphosis is seen throughout the thoracic spine with evidence of DISH. No lytic or blastic lesions are identified. Advanced arthritic change is seen in the shoulders. There is chronic posttraumatic deformity of the right scapula and the left clavicle as well as healed right-sided rib fractures. Soft tissues: Metallic foreign bodies are present throughout the left chest wa ll. ABDOMEN AND PELVIS: Liver: The contrast-enhanced liver is normal in size, contour, and attenuation. There is no intrahepatic or ductal dilatation. The hepatic veins and portal veins are patent. Gallbladder: There are calcified gallstones with no CT evidence of acute cholecystitis. Spleen: Normal in size and attenuation. Pancreas: Moderately atrophic and grossly unremarkable. Adrenal glands: Unremarkable. Kidneys: The contrast enhanced kidneys are atrophic and without hydronephrosis. The kidneys enhance symmetrically. There are bilateral renal vascular calcifications. Scattered renal cysts measure up to 2.1 cm. Additional subcentimeter cortical hypodensities also likely represent cysts but are too small for definitive characterization. Abdominal vasculature: The abdominal aorta is normal in course and caliber noting advanced atherosclerotic calcification. Bowel: There is no bowel obstruction. Mild to moderate fecal retention is seen throughout the colon. The appendix is well-visualized and normal. Peritoneum: There is no intraperitoneal free air or abdominal ascites. Lymphadenopathy: None. Pelvic viscera: The bladder, prostate, and seminal vesicles are normal as visualized. There are small bilateral fat-containing inguinal hernias, left larger than right. Skeletal structures: The skeletal structures are osteopenic. No lytic or blastic lesions are seen. Advanced degenerative change and deformity seen in the hips and pelvis. There are bilateral hip joint effusions/bursal fluid, similar appearance to previous. Numerous calcified joint bodies are present bilaterally. IMPRESSION: 1. Streak and motion compromised examination. 2. There is no evidence of pulmonary embolus in the main, lobar, or segmental pulmonary arteries. 3. Cardiomegaly, emphysema, and changes of chronic fibrotic lung disease as above. 4. Patchy airspace opacities are seen throughout both lungs, greatest in the left lower lobe. This suggests a superimposed infectious/inflammatory pneumonitis and/or congestive failure. Clinical correlation will be essential and radiographic follow-up to resolution is recommended. 5. No acute infectious or inflammatory findings are seen in the abdomen or pelvis. 6. Mild to moderate constipation. 7. Trace pleural effusions. 8. Cholelithiasis. 9. Additional findings as above. ACT 112: Negative or not required by law. Electronically signed by: Faustino Smallwood M.D. 09/02/2021 4:45 PM Chest CTA 09/02/21 15:11 CT ANGIOGRAM OF THE CHEST; CT SCAN OF THE ABDOMEN AND PELVIS WITH IV CONTRAST CLINICAL HISTORY: Dyspnea. Atypical chest pain. Generalized abdominal pain. COMPARISON STUDY: Chest x-ray dated 09/02/2021. Chest CT dated 09/30/2020. Abdominal CT dated 06/09/2021. TECHNIQUE: Following the IV administration of 120 of Optiray 320, CT angiogram of the chest is performed from the upper abdomen to the thoracic inlet utilizing the pulmonary embolus protocol. Images are reviewed in the axial, sagittal, coronal planes. 3-D MIPS images are created and assessed. Subsequently, CT scan of the abdomen and pelvis was performed from the lung bases to the proximal femora. Images are reviewed in the axial, sagittal, and coronal planes. IV contrast was administered without complication. A dose lowering technique was utilized adhering to the principles of ALARA. The examinations are degraded by motion artifact, as well as by streak artifact from the arms which could not be elevated above the chest or abdomen. CT DOSE: 2110.76 mGy.cm FINDINGS: CHEST: Thyroid: Atrophic and heterogeneous. Thoracic aorta: There is atherosclerotic calcification of the thoracic aorta, with is normal in caliber and demonstrates standard 3-vessel arch anatomy. No dissection is seen. Pulmonary vasculature: The main pulmonary arteries are mildly dilated suggesting pulmonary artery hypertension. There are no filling defects identified in the main, lobar, or segmental pulmonary arteries to indicate pulmonary embolus. Heart: The heart is mildly enlarged and without pericardial effusion. The mitral annulus is densely calcified. There are coronary artery calcifications. Lungs and pleural spaces: Emphysematous change is noted. Findings of chronic fibrotic lung disease are similar to previous, greatest the right apex. There is multifocal bronchiectasis. Subpleural reticulation is noted with foci of subpleural honeycombing and scarring. The trachea appears clear. There are trace pleural effusions. A trace chronic pleural collection at the right lung base is also unchanged. There are superimposed patchy airspace opacities throughout both lungs, greatest at the left lung base. Mediastinum: Mildly enlarged mediastinal lymph nodes are similar to previous. A high right peritracheal node on image #207 measures 14 mm in short axis. These are likely related to chronic lung disease. Brenna: Clear. Axillae: There is no axillary lymphadenopathy. Bony thorax: The skeletal structures are osteopenic. Degenerative change and hyperkyphosis is seen throughout the thoracic spine with evidence of DISH. No lytic or blastic lesions are identified. Advanced arthritic change is seen in the shoulders. There is chronic posttraumatic deformity of the right scapula and the left clavicle as well as healed right-sided rib fractures. Soft tissues: Metallic foreign bodies are present throughout the left chest wall. ABDOMEN AND PELVIS: Liver: The contrast-enhanced liver is normal in size, contour, and attenuation. There is no intrahepatic or ductal dilatation. The hepatic veins and portal veins are patent. Gallbladder: There are calcified gallstones with no CT evidence of acute cholecystitis. Spleen: Normal in size and attenuation. Pancreas: Moderately atrophic and grossly unremarkable. Adrenal glands: Unremarkable. Kidneys: The contrast enhanced kidneys are atrophic and without hydronephrosis. The kidneys enhance symmetrically. There are bilateral renal vascular calcifications. Scattered renal cysts measure up to 2.1 cm. Additional subcentimeter cortical hypodensities also likely represent cysts but are too small for definitive characterization. Abdominal vasculature: The abdominal aorta is normal in course and caliber noting advanced atherosclerotic calcification. Bowel: There is no bowel obstruction. Mild to moderate fecal retention is seen throughout the colon. The appendix is well-visualized and normal. Peritoneum: There is no intraperitoneal free air or abdominal ascites. Lymphadenopathy: None. Pelvic viscera: The bladder, prostate, and seminal vesicles are normal as visualized. There are small bilateral fat-containing inguinal hernias, left larger than right. Skeletal structures: The skeletal structures are osteopenic. No lytic or blastic lesions are seen. Advanced degenerative change and deformity seen in the hips and pelvis. There are bilateral hip joint effusions/bursal fluid, similar appearance to previous. Numerous calcified joint bodies are present bilaterally. IMPRESSION: 1. Streak and motion compromised examination. 2. There is no evidence of pulmonary embolus in the main, lobar, or segmental pulmonary arteries. 3. Cardiomegaly, emphysema, and changes of chronic fibrotic lung disease as above. 4. Patchy airspace opacities are seen throughout both lungs, greatest in the left lower lobe. This suggests a superimposed infectious/inflammatory pneumonitis and/or congestive failure. Clinical correlation will be essential and radiographic follow-up to resolution is recommended. 5. No acute infectious or inflammatory findings are seen in the abdomen or pelvis. 6. Mild to moderate constipation. 7. Trace pleural effusions. 8. Cholelithiasis. 9. Additional findings as above. ACT 112: Negative or not required by law. Electronically signed by: Faustino Smallwood M.D. 09/02/2021 4:45 PM EKG - NSR, no ST changes Code Status & VTE Plan Code Status DNR/DNI Supervising Physician Co-Signing Physician Notes Attending Attestation and Admission Note: Pt seen/examined, chart reviewed, care plan d/w resident Dr Aly Reaves. I agree w/ the greene components of his admission documentation. 70yo male with pulmonary fibrosis resulting in chronic hypoxic respiratory failure, chronic diastolic CHF, schizophrenia, [place], hypothyroidism - presents from his home (lives in alf sponsored by [employer]) with worsen ing dyspnea, cough, congestion and poor appetite. Also with orthopnea. CT chest with pneumonia superimposed on PF. VBG with mild resp acidosis. Na low at 128. During my bedside assessment he was difficult to understand but would answer questions. A worker from [employer] was present and verified that Mr Pulido was doing better in comparison to when he first arrived at [facility]. PMH/PSH/allergies/meds/sochx/famhx - reviewed VSS, no fever gen - chronically ill appearing, no distress, difficult to understand speech neck - mild JVD mouth - MMM heart - RRR, s1 s2, 2/6 systolic murmur LSB lungs - diffuse rales anteriorly and posteriorly b/l; scant wheeze scattered; no increased work of breathing abd - soft NT BS+ ext - 1+ edema b/l, pulses 2+ b/l psych - awake, but difficult to understand speech labs reviewed imaging reviewed A/P: 1. acute hypercarbic respiratory failure in the setting of chronic hypoxic resp failure 2. b/l pneumonia 3. baseline pulmonary fibrosis 4. schizophrenia 5. acute/chronic diastolic CHF 6. constipation 7. hyponatremia 8. metabolic encephalopathy #1 - BIPAP at hs in [place] of CPAP. For #2 - it has been <90 days since his last hospitalization. Cover for gram negatives and atypicals (he did not finish his zpack as outpatient). Cefepime/doxy. MRSA swab - if negative defer on MRSA coverage. COVID neg; check flu/RSV to be complete. [employer] worker did not report any dysphagia. Defer on steroids for now for #3. #5 - lasix 40mg IV x 1 now, then 20mg BID tomorrow. Follow BMP, UOP, I's/O's, etc. #7 - hypervolemic hyponatremia - Na should improve with diuresis. BMP am. #8 - 2nd to pneumonia, CO2 retention, etc. Antibiotics, BIPAP HS. h/o high ammonia levels - if he remains confused or sleepy recheck ammonia level. Recheck VBG am. Kirill Stone MD Resident Activity Tracking Resident Involvement: Resident Care Provided Care Provided: Adult Hospital Medicine (1) GERD (gastroesophageal reflux disease) Esophagitis presence: esophagitis presence not specified Qualified Code(s): K21.9 - Gastro-esophageal reflux disease without esophagitis (2) Abdominal pain Abdominal location: unspecified location Qualified Code(s): R10.9 - Unspecified abdominal pain (3) Abdominal pain Abdominal location: unspecified location Qualified Code(s): R10.9 - Unspecified abdominal pain (4) Hypertension Hypertension type: essential hypertension Qualified Code(s): I10 - Essential (primary) hypertension (5) Pneumonia Laterality: unspecified laterality Lung location: unspecified part of lung Pneumonia type: due to unspecified organism Qualified Code(s): J18.9 - Pneumonia, unspecified organism
[2021-09-02] MEDS ORDERED: CEFEPIME 2,000 MG in SYRINGE 0 ML IV STA (19:07)
[2021-09-02] MEDS ORDERED: ALBUT/IPRATROP 3MG/0.5MG NEB 3 ML VIAL NEB STA (19:52)
[2021-09-02] MEDS: ACETAMINOPHEN 325 MG TAB PO PRN (20:11)
[2021-09-02] MEDS: ENOXAPARIN INJ 30 MG/0.3 ML SYR SQ SCH (20:14)
[2021-09-02] MEDS ORDERED: MAGNESIUM HYDROXIDE SUSP 30 ML UDC PO PRN (21:19)
[2021-09-02] MEDS ORDERED: NON-FORMULARY MEDICATION (Acetaminophen 500 mg Capsule) PO PRN (21:19)
[2021-09-02] MEDS ORDERED: PHENAZOPYRIDINE HCL 200 MG TAB PO PRN (21:19)
[2021-09-02] MEDS ORDERED: ALBUTEROL HFA 8 GM INHALER INH PRN (21:19)
[2021-09-02] MEDS ORDERED: bisacodyL 5 MG TABEC PO PRN (21:19)
[2021-09-02] MEDS ORDERED: FUROSEMIDE 40 MG/4 ML VIAL IV SCH (22:00)
--- NOTE | 2021-09-02 22:47 | Billing Data ---
Date of Service September 02, 2021 Coding Level of Care Code 70307 Initial Inpt Care Lvl 3
[2021-09-02] MEDS: FINASTERIDE 5 MG TAB PO SCH (22:48)
[2021-09-02] MEDS: ATORVASTATIN 40 MG TAB PO SCH (22:48)
[2021-09-02] MEDS: FAMOTIDINE 20 MG TAB PO SCH (22:48)
[2021-09-02] MEDS: FERROUS SULFATE 325 MG TAB PO SCH (22:48)
[2021-09-02] MEDS: DIVALPROEX DELAY RELEASE 250 MG TABEC PO SCH (22:48)
[2021-09-02] MEDS: cloZAPine 100 MG TAB PO SCH (22:48)
[2021-09-02] MEDS: ASPIRIN 81 MG ECTAB PO SCH (22:48)
[2021-09-02] MEDS: DIVALPROEX DELAY RELEASE 125 MG TABEC PO SCH (22:48)
[2021-09-02] MEDS: DOXYCYCLINE HYCLATE 100 MG in DEXTROSE 5% 100 ML IV SCH (22:49)
[2021-09-02] MEDS: guaiFENesin 600 MG TABCR PO SCH (22:49)
[2021-09-02] MEDS: CEFEPIME 2,000 MG in SYRINGE 0 ML IV SCH (22:49)
[2021-09-02] MEDS: TAMSULOSIN HCL 0.4 MG CAP PO SCH (22:49)
[2021-09-02] MEDS: SENNA 8.6 MG TAB PO SCH (22:49)
[2021-09-02] MEDS: FLUTICASONE FUROATE 100MCG 14 PUFFS/INHALER INH SCH (22:49)
[2021-09-02] MEDS: POLYETHYLENE (MIRALAX) 17 GM PACK PO SCH (22:50)
[2021-09-02] MEDS: ALBUT/IPRATROP 3MG/0.5MG NEB 3 ML VIAL INH SCH ×2 (23:10)
[2021-09-02 23:19] LABS: Creatinine Urine Random < 13.0 mg/dl; Sodium Random Urine 71 mmol/L
[2021-09-03] MEDS: ALBUT/IPRATROP 3MG/0.5MG NEB 3 ML VIAL INH SCH ×6 (03:24→23:04)
[2021-09-03] MEDS: LEVOTHYROXINE SODIUM 75 MCG TABLET PO SCH (06:09)
[2021-09-03] MEDS: ENOXAPARIN INJ 30 MG/0.3 ML SYR SQ SCH ×2 (06:09→18:04)
[2021-09-03] MEDS: CEFEPIME 2,000 MG in SYRINGE 0 ML IV SCH ×3 (06:09→21:22)
--- NOTE | 2021-09-03 07:48 | Hospitalist Progress Note ---
Date of Service September 03, 2021 Assessment & Plan (1) Pneumonia: Plan: 70-year-old male coming from [place] and history of prior Mycobacterium avium infection, chronic hypoxic respiratory failure in setting of interstitial lung disease on baseline 2 L nasal cannula, anemia, seizure disorder, chronic HFpEF, hypothyroidism, stage III CKD, history of nephrolithiasis, hypertension, GERD, CAD who presented to [facility] at recommendation of PCP for evaluation of cough and congestion for approximately 5 days, currently suspect secondary to acute HFpEF and possible PNA vs. pneumonitis. Acute Hypercapnic Respiratory Failure on Chronic Hypoxic Respiratory Failure Approximately 7 days of worsening cough, shortness of breath in the setting of pre-existing interstitial lung disease and chronic hypoxic respiratory failure requiring 2 L of oxygen at baseline RSV/Flu/COVID NEGATIVE Continues with crackles and wheezing, trace-1+ edema. BNP was elevated to 10k on admit. Lasix IV given and continued on 20mg IV BID as on 20mg PO BID outpatient Typically on O2 2L at baseline --> currently requiring 3L for O2 sat 90% CTA negative for PE but notes cardiomegaly, emphysema, and changes of chronic fibrotic lung disease with patchy opacities throughout, greatest LLL suggestive of superimposed pneumonitis and/or CHF. f/u to resolution recommended Does have hx SOLANGE but has been evaluated by pulmonary and ID in past and felt stable and not candidate for treatment given other co-morbidities and psychiatric medications Sputum cx pending -- GS with few poly, mod epi, rare gram + bacilli, rare gram + cocci, however MRSA nasal swab negative and no need for MRSA coverage at this time. 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 --> Will consult pulmonary for AM for further recs given complex history and does not appear to have had recent follow up. CRP 9 despite negative procal however increased cough/sob/sputum production [employer] suggestive of infectious etiology Continue on Cefepime/Doxy -- as noted previously on this combination but never tx for aspergillus or SOLANGE and with more frequent hospitalizations for pneumonia/exacerbations and ?consideration for tx of such per pulm recs Continue Duonebs Q4h, albuterol prn May need to add steroids but will hold off for now. Appreciate pulm input Elevated eosinophils and with increased secretions --> added zyrtec daily VBG with improvement however refused CPAP/BiPAP last night due to worry about insurance coverage --> discussed with RT to attempt tonight Tessalon pearls TID for cough. Robitussin cough syrup if ineffective Continue fluid restriction, supplemental O2 to keep sat >90. Continue flutter valve and add incentive spirometry Pneumonitis versus Possible PNA Chest CT with patchy bilateral airspace opacities, greatest in the left lower lobe Cefepime and doxycycline, as abovecan consider downgrading for MRSA coverage once MRSA nare returns MRSA nasal swab negative RSV/Flu/COVID negative Sputum culture pending as above Hold steroids for now --> Also getting speech eval given concerns by caregiver. ?tracheomalacia given continue issues and steroids in patient and on psych meds ?benefit from bronch. --pulm on consult for AM Interstitial Lung Disease On record review, patient has previously followed [place]. [place] [facility] [place] on chest CT Continue Asmanex, Duonebs scheduled as above Sleep apnea CPAP if unable to tolerate BiPAP tonight -- refused last evening due to worry about $$/insurance Does not have home unit Normocytic anemia Hemoglobin at admission noted to be 9.4, consistent with previous values over the last 2 months Patient previously worked up for iron deficiency anemia per previous notes. No signs or symptoms of GI bleeding at present. Continue iron supplementation (hold while getting IV today) Suspect anemia also contributing/worsening SOB. Most recent iron 68 in May (prior low at 28 in Dec with negative fecal occult blood at that time) --> Iron low at 29, transferrin 206 --> calculated trans%sat low at 10 --> Venofer 300mg IV for today, repeat tomorrow pending labs. fecal occult for completeness --> Retic count elevated and will check LDH although could be elevated from CHF (2) Acute hyponatremia: Plan: Hyponatremia Suspect hypervolemic hyponatremia; in setting of possible pneumonia/pneumonitis, also possible SIADH may be applied Na 128--> 131 with diuretics Urine sodium labs not indicative of SIADH Most recent TSH 2.06 Aug 2021 Diuretics as above and continue to monitor (3) Hypoxemia: Plan: improving on VBG and continue to monitor asked RT to place BiPAP tonight --> CPAP if unable to tolerate he refused last night due to worry about cost (4) Chronic diastolic CHF (congestive heart failure): Plan: Hypervolemia in setting of H/O HFpEF Last echo on 07/2019 demonstrating mild cLVH, severe mitral annular calcification, LVEF 65 to 70% As above: In setting of hypervolemia on exam and imaging findings concerning for pulmonary edema, will treat as HFpEF exacerbation Continue metoprolol 50mg daily Lasix 20mg IV BID. Cr stable ECHO with limited views, LV hyperdynamic, severe mitral annular calcification --> patient kept asking tech to stop and wanted to d/c the test Fluid restriction under 2 L, low-sodium diet, monitor intake and output, daily weights net negative 775cc. May need increased diuretic but will continue current regimen. suspect increased needs if start steroids as above tomorrow if no improvement (5) Abdominal pain: Plan: Patient with history of functional small bowel obstruction, no previous abdominal surgeries No evidence of small bowel obstruction or ileus on CT abdomen pelvis Scheduled MiraLAX and senna. Consider adding Dulcolax or mineral oil (6) Acute and chronic respiratory failure with hypoxia: (7) Chronic respiratory failure with hypoxia: Plan: as above (8) Interstitial lung disease: Plan: as above (9) CKD (chronic kidney disease), stage III: Plan: Baseline creatinine approximately 1.2 -- Cr 1.06 with diuretics and will continue to monitor (10) Edema of both lower extremities: Plan: improving wit diuretics as above (11) Paranoid schizophrenia: Plan: continue home medications (12) CAD in [place] artery: Plan: continue ASA, statin (13) Hypertension: (14) GERD (gastroesophageal reflux disease): Plan: continue famotidine (15) Seizure disorder: Plan: continue home meds Code: DNR/DNI, confirmed with patient and caregiver on admission Prophylaxis: Lovenox Dispo: MS/telemetry, can consider downgrading to MedSurg after 24 hours Plan: continued inpatient stay pulmonary consulted Admission and Anticipated Discharge Date Admission Date: September 02, 2021 Subjective Patient evaluated this afternoon. Still with significant cough. States takes a lot to cough something up. Denies any change in color to sputum. On 3L NC. Still with shortness of breath about the same, not much better or worse. Holding off on steroids for now but consideration in future. Given issues with coughing/swallowing and concerns with case filler for issues swallowing and will have eval by speech. RN utilized thickener to liquids and didn't notice much difference. Worried about bowels as has not moved in 24 hours and has issue in past. Will order miralax. Using urinal to void and voiding yellow urine, slightly concentrate. He states he doesn't want to stay more than 4-5 days and hopeful for home within week given prior hospitalizations. Sputum cx pending -- GS with few poly, mod epi, rare gram + bacilli, rare gram + cocci, however MRSA nasal swab negative and no need for MRSA coverage at this time. 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 Review of Systems Review of Systems: All systems reviewed & are unremarkable except as noted in HPI & below Physical Exam Physical Exam: General: Tired appearing 62-year-old male who is lying back in his hospital bed, no acute distress but with occassional non-productive cough, no acute distress but does appear chronically ill appearing HEENT: NCAT. Eyes - Sclera are white, anicteric, and without injection. PERRL. EOMs display full ROM bilaterally. Mouth - MMM with no tonsillar edema or exudates. Neck - supple and without LAD. Jugular venous pulse noticed approximately 2 to 3 fingerbreadths above the right clavicle, hepatojugular reflex positive. Cardiac: Normal rate and regular rhythm; S1 and S2 present with no murmurs, rubs, or gallops. JVD as above. 1+ peripheral edema in the lower extremities bilaterally. Pulmonary: Mildly increased respiratory effort with symmetric expansion of chest. No use of accessory muscles. Lungs do demonstrate intermittent inspiratory wheezes within the upper lobes, as well as scattered crackles throughout all lung [place], most appreciable at the left lung base. No conversational dyspnea. Abdominal: Normoactive bowel sounds. Abdomen was mildly distended within the right quadrants. Nontender to palpation. No rebound or guarding. Extremities: Upper and lower extremities are warm and well perfused. Radial and dorsalis pedis pulses were 2+ b/l. Capillary refill assessed in UE was < 3 sec. 1+ peripheral edema in the lower extremities bilaterally. Results & Data Results & Data ([facility]) Vital Signs (Past 12 Hours) Vital Signs Temp Pulse Pulse Resp BP BP Pulse Ox 09/03/21 07:32 37.2 C 99 H 20 113/63 91 09/03/21 07:20 58 L 18 96 09/03/21 06:21 97 H 09/03/21 03:35 36.3 C L 89 20 100/64 91 09/03/21 03:24 88 22 93 09/02/21 23:13 95 H 20 95 09/02/21 22:08 90 09/02/21 21:36 36.4 C L 83 20 134/78 94 09/02/21 20:26 84 18 92 09/02/21 20:00 86 23 125/68 91 Laboratory Results 09/03/21 09/03/21 09/03/21 Range/Units 07:59 07:59 07:59 WBC 11.65 H (4.8-10.8) K/uL RBC 3.34 L (4.7-6.1) M/uL Hgb 9.6 L (14.0-18.0) g/dL Hct 30.6 L (42-52) % MCV 91.6 (80-100) fL MCH 28.7 (25-34) pg MCHC 31.4 L (32-36) g/dL RDW Std Deviation 45.5 (36.4-46.3) fL RDW Coeff of Nak[place] 13.6 (11.5-14.5) % Plt Count 217 (130-400) K/uL MPV 8.9 (7.4-10.4) fL Immature Gran % (Auto) 6.4 % Neut % (Auto) 65.2 % Lymph % (Auto) 10.9 % [place] % (Auto) 12.3 % Eos % (Auto) 4.9 % Baso % (Auto) 0.3 % Reticulocyte % (Auto) 3.3 H (0.5-2.0) % Neut # (Auto) 7.60 H (1.4-6.5) K/uL Lymph # (Auto) 1.27 (1.2-3.4) K/uL [place] # (Auto) 1.43 H (0.11-0.59) K/uL Eos # (Auto) 0.57 H (0-0.5) K/uL Baso # (Auto) 0.03 (0-0.2) K/uL Reticulocyte # 0.11 H (0.02-0.10) 10^6/uL Immature Gran # (Auto) 0.75 H (0.00-0.02) K/uL VBG pH 7.38 (7.36-7.41) VBG pCO2 54 H (38-50) mmHg VBG pO2 41 mmHg VBG HCO3 31 mmol/L VBG O2 Saturation 72.5 % VBG Base Excess 4.9 mEq/L Barometric Pressure 740.1 mm/Hg Sodium 131 L (136-145) mmol/L Potassium 4.9 (3.5-5.1) mmol/L Chloride 97 L (98-107) mmol/L Carbon Dioxide 29 (21-32) mmol/L Anion Gap 5.0 (3-11) BUN 24 H (7-18) mg/dl Creatinine 1.06 (0.6-1.4) mg/dl Est Cr Clr Drug Dosing 69.9 ml/min Est GFR ( Amer) 83.2 ml/min Est GFR (Non-Af Amer) 71.8 ml/min BUN/Creatinine Ratio 22.9 H (10-20) Glucose 99 (70-99) mg/dl Calcium 9.2 (8.5-10.1) mg/dl Iron 29 L (35-175) mcg/dl TIBC 258 (250-450) mcg/dl Transferrin 206 (200-360) mg/dl Ferritin 710.5 H (8-388) ng/ml C-Reactive Protein (0-0.29) mg/dl NT-Pro-B Natriuret Pep (0-900) pg/ml Procalcitonin (0-0.5) ng/ml Ur Random Creatinine mg/dl Ur Random Sodium mmol/L Nasal Screen MRSA (PCR) (Negative) Influenza Type A Ag (Neg) Influenza Type B Ag (Neg) RSV (Molecular) (Negative) 09/02/21 09/02/21 09/02/21 Range/Units 22:40 22:00 22:00 WBC (4.8-10.8) K/uL RBC (4.7-6.1) M/uL Hgb (14.0-18.0) g/dL Hct (42-52) % MCV (80-100) fL MCH (25-34) pg MCHC (32-36) g/dL RDW Std Deviation (36.4-46.3) fL RDW Coeff of Nakia (11.5-14.5) % Plt Count (130-400) K/uL MPV (7.4-10.4) fL Immature Gran % (Auto) % Neut % (Auto) % Lymph % (Auto) % [place] % (Auto) % Eos % (Auto) % Baso % (Auto) % Reticulocyte % (Auto) (0.5-2.0) % Neut # (Auto) (1.4-6.5) K/uL Lymph # (Auto) (1.2-3.4) K/uL [place] # (Auto) (0.11-0.59) K/uL Eos # (Auto) (0-0.5) K/uL Baso # (Auto) (0-0.2) K/uL Reticulocyte # (0.02-0.10) 10^6/uL Immature Gran # (Auto) (0.00-0.02) K/uL VBG pH (7.36-7.41) VBG pCO2 (38-50) mmHg VBG pO2 mmHg VBG HCO3 mmol/L VBG O2 Saturation % VBG Base Excess mEq/L Barometric Pressure mm/Hg Sodium (136-145) mmol/L Potassium (3.5-5.1) mmol/L Chloride (98-107) mmol/L Carbon Dioxide (21-32) mmol/L Anion Gap (3-11) BUN (7-18) mg/dl Creatinine (0.6-1.4) mg/dl Est Cr Clr Drug Dosing ml/min Est GFR ( Amer) ml/min Est GFR (Non-Af Amer) ml/min BUN/Creatinine Ratio (10-20) Glucose (70-99) mg/dl Calcium (8.5-10.1) mg/dl Iron (35-175) mcg/dl TIBC (250-450) mcg/dl Transferrin (200-360) mg/dl Ferritin (8-388) ng/ml C-Reactive Protein (0-0.29) mg/dl NT-Pro-B Natriuret Pep (0-900) pg/ml Procalcitonin (0-0.5) ng/ml Ur Random Creatinine < 13.0 mg/dl Ur Random Sodium 71 mmol/L Nasal Screen MRSA (PCR) Negative (Negative) Influenza Type A Ag Neg for Influ A (Neg) Influenza Type B Ag Neg for Influ B (Neg) RSV (Molecular) (Negative) 09/02/21 09/02/21 09/02/21 Range/Units 22:00 18:48 15:30 WBC (4.8-10.8) K/uL RBC (4.7-6.1) M/uL Hgb (14.0-18.0) g/dL Hct (42-52) % MCV (80-100) fL MCH (25-34) pg MCHC (32-36) g/dL RDW Std Deviation (36.4-46.3) fL RDW Coeff of Nakia (11.5-14.5) % Plt Count (130-400) K/uL MPV (7.4-10.4) fL Immature Gran % (Auto) % Neut % (Auto) % Lymph % (Auto) % [place] % (Auto) % Eos % (Auto) % Baso % (Auto) % Reticulocyte % (Auto) (0.5-2.0) % Neut # (Auto) (1.4-6.5) K/uL Lymph # (Auto) (1.2-3.4) K/uL [place] # (Auto) (0.11-0.59) K/uL Eos # (Auto) (0-0.5) K/uL Baso # (Auto) (0-0.2) K/uL Reticulocyte # (0.02-0.10) 10^6/uL Immature Gran # (Auto) (0.00-0.02) K/uL VBG pH (7.36-7.41) VBG pCO2 (38-50) mmHg VBG pO2 mmHg VBG HCO3 mmol/L VBG O2 Saturation % VBG Base Excess mEq/L Barometric Pressure mm/Hg Sodium (136-145) mmol/L Potassium (3.5-5.1) mmol/L Chloride (98-107) mmol/L Carbon Dioxide (21-32) mmol/L Anion Gap (3-11) BUN (7-18) mg/dl Creatinine (0.6-1.4) mg/dl Est Cr Clr Drug Dosing ml/min Est GFR ( Amer) ml/min Est GFR (Non-Af Amer) ml/min BUN/Creatinine Ratio (10-20) Glucose (70-99) mg/dl Calcium (8.5-10.1) mg/dl Iron (35-175) mcg/dl TIBC (250-450) mcg/dl Transferrin (200-360) mg/dl Ferritin (8-388) ng/ml C-Reactive Protein 8.94 H (0-0.29) mg/dl NT-Pro-B Natriuret Pep 10845 H (0-900) pg/ml Procalcitonin < 0.05 (0-0.5) ng/ml Ur Random Creatinine mg/dl Ur Random Sodium mmol/L Nasal Screen MRSA (PCR) (Negative) Influenza Type A Ag (Neg) Influenza Type B Ag (Neg) RSV (Molecular) Negative (Negative) Diagnostic Findings Chest X-Ray 09/02/21 14:57 SINGLE VIEW CHEST CLINICAL HISTORY: Atypical chest pain. Cough. FINDINGS: An AP, portable, upright chest radiograph is compared to study dated 08/27/2021 and correlated with chest CT dated 09/30/2020. The heart is mildly enlarged noting atherosclerotic calcification of the thoracic aorta. Fibrotic change is again seen throughout both lungs with right greater than left apical f ibrosis. Airspace opacities in the mid to lower lungs have increased from prior examinations. Diffuse bronchiectasis is noted. No large pleural effusion or pneumothorax is seen. The skeletal structures are osteopenic. The bony thorax is grossly intact. Advanced arthritic change is seen in the shoulders. Radiodense/metallic foreign bodies are again seen projecting over the left chest. IMPRESSION: 1. Cardiomegaly and chronic fibrotic lung disease. 2. There are increasing airspace opacities in the mid to lower lungs as compared to prior examinations. This could represent a superimposed infe ctious/inflammatory pneumonitis and/or congestive failure/pulmonary edema. Clinical correlation will be required. Radiographic follow-up to resolution is recommended. ACT 112: Negative or not required by law. Electronically signed by: Faustino Smallwood M.D. 09/02/2021 3:42 PM Abdomen/Pelvis CT 09/02/21 15:07 CT ANGIOGRAM OF THE CHEST; CT SCAN OF THE ABDOMEN AND PELVIS WITH IV CONTRAST CLINICAL HISTORY: Dyspnea. Atypical chest pain. Generalized abdominal pain. COMPARISON STUDY: Chest x-ray dated 09/02/2021. Chest CT dated 09/30/2020. Abdominal CT dated 06/09/2021. TECHNIQUE: Following the IV administration of 120 of Optiray 320, CT angiogram of the chest is performed from the upper abdomen to the thoracic inlet utilizing the pulmonary embolus protocol. Images are reviewed in the axial, sagittal, coronal planes. 3-D MIPS images are created and assessed. Subsequently, CT scan of the abdomen and pelvis was performed from the lung bases to the proximal femora. Images are reviewed in the axial, sagittal, and coronal planes. IV contrast was administered without complication. A dose lowering technique was utilized adhering to the principles of ALARA. The examinations are degraded by motion artifact, as well as by streak artifact from the arms which could not be elevated above the chest or abdomen. CT DOSE: 2110.76 mGy.cm FINDINGS: CHEST: Thyroid: Atrophic and heterogeneous. Thoracic aorta: There is atherosclerotic calcification of the thoracic aorta, with is normal in caliber and demonstrates standard 3-vessel arch anatomy. No di ssection is seen. Pulmonary vasculature: The main pulmonary arteries are mildly dilated suggesting pulmonary artery hypertension. There are no filling defects identified in the main, lobar, or segmental pulmonary arteries to indicate pulmonary embolus. Heart: The heart is mildly enlarged and without pericardial effusion. The mitral annulus is densely calcified. There are coronary artery calcifications. Lungs and pleural spaces: Emphysematous change is noted. Findings of chronic fibrotic lung disease are similar to previous, greatest the right apex. There is multifocal bronchiectasis. Subpleural reticulation is noted with foci of subpleural honeycombing and scarring. The trachea appears clear. There are trace pleural effusions. A trace chronic pleural collection at the right lung base is also unchanged. There are superimposed patchy airspace opacities throughout both lungs, greatest at the left lung base. Mediastinum: Mildly enlarged mediastinal lymph nodes are similar to previous. A high right peritracheal node on image #207 measures 14 mm in short axis. These are likely related to chronic lung disease. Brenna: Clear. Axillae: There is no axillary lymphadenopathy. Bony thorax: The skeletal structures are osteopenic. Degenerative change and hyperkyphosis is seen throughout the thoracic spine with evidence of DISH. No lytic or blastic lesions are identified. Advanced arthritic change is seen in the shoulders. There is chronic posttraumatic deformity of the right scapula and the left clavicle as well as healed right-sided rib fractures. Soft tissues: Metallic foreign bodies are present throughout the left chest wall. ABDOMEN AND PELVIS: Liver: The contrast-enhanced liver is normal in size, contour, and attenuation. There is no intrahepatic or ductal dilatation. The hepatic veins and portal veins are patent. Gallbladder: There are calcified gallstones with no CT evidence of acute cholecystitis. Spleen: Normal in size and attenuation. Pancreas: Moderately atrophic and grossly unremarkable. Adrenal glands: Unremarkable. Kidneys: The contrast enhanced kidneys are atrophic and without hydronephrosis. The kidneys enhance symmetrically. There are bilateral renal vascular calcifications. Scattered renal cysts measure up to 2.1 cm. Additional subcentimeter cortical hypodensities also likely represent cysts but are too small for definitive characterization. Abdominal vasculature: The abdominal aorta is normal in course and caliber noting advanced atherosclerotic calcification. Bowel: There is no bowel obstruction. Mild to moderate fecal retention is seen throughout the colon. The appendix is well-visualized and normal. Peritoneum: There is no intraperitoneal free air or abdominal ascites. Lymphadenopathy: None. Pelvic viscera: The bladder, prostate, and seminal vesicles are normal as visualized. There are small bilateral fat-containing inguinal hernias, left larger than right. Skeletal structures: The skeletal structures are osteopenic. No lytic or blastic lesions are seen. Advanced degenerative change and deformity seen in the hips and pelvis. There are bilateral hip joint effusions/bursal fluid, similar appearance to previous. Numerous calcified joint bodies are present bilaterally. IMPRESSION: 1. Streak and motion compromised examination. 2. There is no evidence of pulmonary embolus in the main, lobar, or segmental pulmonary arteries. 3. Cardiomegaly, emphysema, and changes of chronic fibrotic lung disease as above. 4. Patchy airspace opacities are seen throughout both lungs, greatest in the left lower lobe. This suggests a superimposed infectious/inflammatory pneumonitis and/or congestive failure. Clinical correlation will be essential and radiographic follow-up to resolution is recommended. 5. No acute infectious or inflammatory findings are seen in the abdomen or pelvis. 6. Mild to moderate constipation. 7. Trace pleural effusions. 8. Cholelithiasis. 9. Additional findings as above. ACT 112: Negative or not required by law. Electronically signed by: Faustino Smallwood M.D. 09/02/2021 4:45 PM Chest CTA 09/02/21 15:11 CT ANGIOGRAM OF THE CHEST; CT SCAN OF THE ABDOMEN AND PELVIS WITH IV CONTRAST CLINICAL HISTORY: Dyspnea. Atypical chest pain. Generalized abdominal pain. COMPARISON STUDY: Chest x-ray dated 09/02/2021. Chest CT dated 09/30/2020. Abdominal CT dated 06/09/2021. TECHNIQUE: Following the IV administration of 120 of Optiray 320, CT angiogram of the chest is performed from the upper abdomen to the thoracic inlet utilizing the pulmonary embolus protocol. Images are reviewed in the axial, sagittal, coronal planes. 3-D MIPS images are created and assessed. Subsequently, CT scan of the abdomen and pelvis was performed from the lung bases to the proximal femora. Images are reviewed in the axial, sagittal, and coronal planes. IV contrast was administered without complication. A dose lowering technique was utilized adhering to the principles of ALARA. The examinations are degraded by motion artifact, as well as by streak artifact from the arms which could not be elevated above the chest or abdomen. CT DOSE: 2110.76 mGy.cm FINDINGS: CHEST: Thyroid: Atrophic and heterogeneous. Thoracic aorta: There is atherosclerotic calcification of the thoracic aorta, with is normal in caliber and demonstrates standard 3-vessel arch anatomy. No dissection is seen. Pulmonary vasculature: The main pulmonary arteries are mildly dilated suggesting pulmonary artery hypertension. There are no filling defects identified in the main, lobar, or segmental pulmonary arteries to indicate pulmonary embolus. Heart: The heart is mildly enlarged and without pericardial effusion. The mitral annulus is densely calcified. There are coronary artery calcifications. Lungs and pleural spaces: Emphysematous change is noted. Findings of chronic fibrotic lung disease are similar to previous, greatest the right apex. There is multifocal bronchiectasis. Subpleural reticulation is noted with foci of subpleural honeycombing and scarring. The trachea appears clear. There are trace pleural effusions. A trace chronic pleural collection at the right lung base is also unchanged. There are superimposed patchy airspace opacities throughout both lungs, greatest at the left lung base. Mediastinum: Mildly enlarged mediastinal lymph nodes are similar to previous. A high right peritracheal node on image #207 measures 14 mm in short axis. These are likely related to chronic lung disease. Brenna: Clear. Axillae: There is no axillary lymphadenopathy. Bony thorax: The skeletal structures are osteopenic. Degenerative change and hyperkyphosis is seen throughout the thoracic spine with evidence of DISH. No lytic or blastic lesions are identified. Advanced arthritic change is seen in the shoulders. There is chronic posttraumatic deformity of the right scapula and the left clavicle as well as healed right-sided rib fractures. Soft tissues: Metallic foreign bodies are present throughout the left chest wall. ABDOMEN AND PELVIS: Liver: The contrast-enhanced liver is normal in size, contour, and attenuation. There is no intrahepatic or ductal dilatation. The hepatic veins and portal veins are patent. Gallbladder: There are calcified gallstones with no CT evidence of acute cholecystitis. Spleen: Normal in size and attenuation. Pancreas: Moderately atrophic and grossly unremarkable. Adrenal glands: Unremarkable. Kidneys: The contrast enhanced kidneys are atrophic and without hydronephrosis. The kidneys enhance symmetrically. There are bilateral renal vascular calcifications. Scattered renal cysts measure up to 2.1 cm. Additional subcentimeter cortical hypodensities also likely represent cysts but are too small for definitive characterization. Abdominal vasculature: The abdominal aorta is normal in course and caliber noting advanced atherosclerotic calcification. Bowel: There is no bowel obstruction. Mild to moderate fecal retention is seen throughout the colon. The appendix is well-visualized and normal. Peritoneum: There is no intraperitoneal free air or abdominal ascites. Lymphadenopathy: None. Pelvic viscera: The bladder, prostate, and seminal vesicles are normal as visualized. There are small bilateral fat-containing inguinal hernias, left larger than right. Skeletal structures: The skeletal structures are osteopenic. No lytic or blastic lesions are seen. Advanced degenerative change and deformity seen in the hips and pelvis. There are bilateral hip joint effusions/bursal fluid, similar appearance to previous. Numerous calcified joint bodies are present bilaterally. IMPRESSION: 1. Streak and motion compromised examination. 2. There is no evidence of pulmonary embolus in the main, lobar, or segmental pulmonary arteries. 3. Cardiomegaly, emphysema, and changes of chronic fibrotic lung disease as above. 4. Patchy airspace opacities are seen throughout both lungs, greatest in the left lower lobe. This suggests a superimposed infectious/inflammatory pneumonitis and/or congestive failure. Clinical correlation will be essential and radiographic follow-up to resolution is recommended. 5. No acute infectious or inflammatory findings are seen in the abdomen or pelvis. 6. Mild to moderate constipation. 7. Trace pleural effusions. 8. Cholelithiasis. 9. Additional findings as above. ACT 112: Negative or not required by law. Electronically signed by: Faustino Smallwood M.D. 09/02/2021 4:45 PM PG Care Time/CCT Total # of Minutes Spent Total Time Spent with Patient: Total time spent is greater than 50% in coordination of care (as documented) at patient's floor/unit and/or counseling patient: Coding Level of Care Code 30162 Subseq Hosp Care Lvl 3 Diagnoses Pneumonia J18.9 Laterality: unspecified laterality Lung location: unspecified part of lung Pneumonia type: due to unspecified organism Acute hyponatremia E87.1 Abdominal pain R10.9 Abdominal location: unspecified location Edema of both lower extremities R60.0 Hypoxemia R09.02 Chronic diastolic CHF (congestive heart failure) I50.32 Acute and chronic respiratory failure with hypoxia J96.21 CKD (chronic kidney disease), stage III N18.3 Chronic respiratory failure with hypoxia J96.11 Interstitial lung disease J84.9 Paranoid schizophrenia F20.0 CAD in [place] artery I25.10 Hypertension I10 Hypertension type: essential hypertension GERD (gastroesophageal reflux disease) K21.9 Esophagitis presence: esophagitis presence not specified Seizure disorder G40.909 (1) GERD (gastroesophageal reflux disease) Esophagitis presence: esophagitis presence not specified Qualified Code(s): K21.9 - Gastro-esophageal reflux disease without esophagitis (2) Abdominal pain Abdominal location: unspecified location Qualified Code(s): R10.9 - Unspecified abdominal pain (3) Hypertension Hypertension type: essential hypertension Qualified Code(s): I10 - Essential (primary) hypertension (4) Pneumonia Laterality: unspecified laterality Lung location: unspecified part of lung Pneumonia type: due to unspecified organism Qualified Code(s): J18.9 - Pneumonia, unspecified organism
[2021-09-03 08:06] LABS: Hematocrit (blood only) 30.6 % (42-52); Hemoglobin 9.6 g/dL (14.0-18.0); Mean Corpuscular Hemoglobin 28.7 pg (25-34); Mean Corpuscular Hgb Conc 31.4 g/dL (32-36); Mean Corpuscular Volume 91.6 fL (80-100); Mean Platelet Volume 8.9 fL (7.4-10.4); Platelet Count 217 K/uL (130-400); RDW Coefficient of Variation 13.6 % (11.5-14.5); RDW Standard Deviation 45.5 fL (36.4-46.3); Red Blood Count 3.34 M/uL (4.7-6.1); Reticulocyte % 3.3 % (0.5-2.0); Reticulocytes # 0.11 10^6/uL (0.02-0.10); White Blood Count 11.65 K/uL (4.8-10.8)
[2021-09-03 08:07] LABS: Base Excess VBG 4.9 mEq/L; Oxygen Saturation VBG 72.5 %; pH VBG 7.38 (7.36-7.41)
[2021-09-03 08:30] LABS: Basophils # (auto) 0.03 K/uL (0-0.2); Basophils % (auto) 0.3 %; Eosinophils # (auto) 0.57 K/uL (0-0.5); Eosinophils % (auto) 4.9 %; Immature Granulocytes # (auto) 0.75 K/uL (0.00-0.02); Immature Granulocytes % (auto) 6.4 %; Lymphocytes # (auto) 1.27 K/uL (1.2-3.4); Lymphocytes % (auto) 10.9 %; Monocytes # (auto) 1.43 K/uL (0.11-0.59); Monocytes % (auto) 12.3 %; Neutrophils % (auto) 65.2 %
[2021-09-03] MEDS: POLYETHYLENE (MIRALAX) 17 GM PACK PO SCH ×2 (08:47→20:04)
[2021-09-03] MEDS: ACETAMINOPHEN 325 MG TAB PO PRN ×2 (08:47→16:20)
[2021-09-03] MEDS: FERROUS SULFATE 325 MG TAB PO SCH (08:48)
[2021-09-03] MEDS: CHOLECALCIFEROL 1,000 UNITS 25 MCG TAB PO SCH (08:48)
[2021-09-03] MEDS: DIVALPROEX DELAY RELEASE 250 MG TABEC PO SCH ×2 (08:48→20:02)
[2021-09-03] MEDS: FAMOTIDINE 20 MG TAB PO SCH ×2 (08:48→20:03)
[2021-09-03] MEDS: DIVALPROEX DELAY RELEASE 125 MG TABEC PO SCH ×2 (08:48→20:02)
[2021-09-03] MEDS: FUROSEMIDE 40 MG/4 ML VIAL IV SCH ×2 (08:49→16:19)
[2021-09-03] MEDS: METOPROLOL SUCC 50MG EXT REL TAB PO SCH (08:49)
[2021-09-03] MEDS: MAGNESIUM OXIDE 400 MG TAB PO SCH (08:49)
[2021-09-03] MEDS: guaiFENesin 600 MG TABCR PO SCH ×2 (08:49→20:04)
[2021-09-03] MEDS: DOXYCYCLINE HYCLATE 100 MG in DEXTROSE 5% 100 ML IV SCH ×2 (08:50→21:20)
[2021-09-03] MEDS: SENNA 8.6 MG TAB PO SCH (08:50)
[2021-09-03] MEDS ORDERED: MICONAZOLE NITRATE POWDER 43 GM EXT PRN (08:51)
[2021-09-03] MEDS ORDERED: CETIRIZINE HCL 10 MG TABLET PO ONE (09:07)
[2021-09-03 09:12] LABS: BUN Creatinine Ratio 22.9 (10-20); Calcium 9.2 mg/dl (8.5-10.1); Creatinine Clr Calc Pharmacy 69.9 ml/min; Est GFR (African American) 83.2 ml/min; Est GFR (Non-African American) 71.8 ml/min; Potassium 4.9 mmol/L (3.5-5.1)
[2021-09-03 09:17] LABS: Ferritin 710.5 ng/ml (8-388)
[2021-09-03] MEDS ORDERED: IRON SUCROSE 300 MG in SODIUM CHLORIDE 0.9% 250 ML IV ONE (09:30)
--- NOTE | 2021-09-03 11:06 | XCELERA ---
[id number] \\[id number]
[2021-09-03] MEDS: DOCUSATE SODIUM/SENNA 50/8.6MG TAB PO SCH (16:19)
[2021-09-03] MEDS: BENZONATATE 100 MG CAPSULE PO SCH ×2 (16:19→20:03)
[2021-09-03] MEDS: guaiFENesin/DEXTROM SYRUP 100MG/10MG 5ML UDC PO PRN ×2 (16:20→23:24)
[2021-09-03] MEDS ORDERED: bisacodyL 10 MG SUPP PR PRN (17:36)
--- NOTE | 2021-09-03 19:31 | XRay Report ---
XR chest 1V portable HISTORY: 70 years-old Male follow up acute shortness of breath COMPARISON: Chest radiograph and CTA chest 09/02/2021 TECHNIQUE: Portable AP view of the chest FINDINGS: Cardiac megaly with pulmonary fibrosis redemonstrated. Emphysema. Punctate metallic density foci are again noted overlying the left chest and upper abdomen. Healed chronic mid left clavicular fracture. Degenerative changes of the shoulders and spine. Mild improvement of the mild patchy bilateral airspa ce opacities. Trace pleural effusions. IMPRESSION: 1. Mildly decreased patchy bilateral airspace opacities. 2. Emphysema with chronic interstitial lung disease. 3. Cardiomegaly. ACT 112: Negative or not required by law. The above report was generated using voice recognition software. It may contain grammatical, syntax o r spelling errors. Electronically signed by: Davidson Sandoval M.D. 09/03/2021 7:30 PM
[2021-09-03] MEDS: ATORVASTATIN 40 MG TAB PO SCH (20:02)
[2021-09-03] MEDS: ASPIRIN 81 MG ECTAB PO SCH (20:02)
[2021-09-03] MEDS: cloZAPine 100 MG TAB PO SCH (20:03)
[2021-09-03] MEDS: TAMSULOSIN HCL 0.4 MG CAP PO SCH (20:04)
[2021-09-03] MEDS: FINASTERIDE 5 MG TAB PO SCH (20:04)
[2021-09-03] MEDS: FLUTICASONE FUROATE 100MCG 14 PUFFS/INHALER INH SCH (20:05)
[2021-09-04] MEDS: ALBUT/IPRATROP 3MG/0.5MG NEB 3 ML VIAL INH SCH ×6 (01:58→22:43)
[2021-09-04] MEDS: LEVOTHYROXINE SODIUM 75 MCG TABLET PO SCH (06:12)
[2021-09-04] MEDS: CEFEPIME 2,000 MG in SYRINGE 0 ML IV SCH ×3 (06:12→21:41)
[2021-09-04] MEDS: ENOXAPARIN INJ 30 MG/0.3 ML SYR SQ SCH ×2 (06:12→19:30)
[2021-09-04 06:56] LABS: Hematocrit (blood only) 30.1 % (42-52); Hemoglobin 9.2 g/dL (14.0-18.0); Mean Corpuscular Hgb Conc 30.6 g/dL (32-36); Platelet Count 203 K/uL (130-400); RDW Standard Deviation 48.2 fL (36.4-46.3); Red Blood Count 3.17 M/uL (4.7-6.1); White Blood Count 11.26 K/uL (4.8-10.8)
[2021-09-04 07:08] LABS: Base Excess VBG 5.8 mEq/L; Oxygen Saturation VBG 85.8 %; pH VBG 7.34 (7.36-7.41)
[2021-09-04 07:30] LABS: Albumin Level 2.1 gm/dl (3.4-5.0); BUN Creatinine Ratio 20.6 (10-20); Calcium 8.7 mg/dl (8.5-10.1); Creatinine Clr Calc Pharmacy 64.5 ml/min; Est GFR (African American) 83.2 ml/min; Est GFR (Non-African American) 71.8 ml/min; Magnesium 2.8 mg/dl (1.8-2.4); Potassium 4.9 mmol/L (3.5-5.1)
[2021-09-04 07:40] LABS: Albumin Globulin Ratio 0.4 (0.9-2); Bilirubin,Total 0.4 mg/dl (0.2-1); Globulin 5.1 gm/dl (2.5-4.0); Thyroid Stimulating Hormone 2.04 uIu/ml (0.300-4.500); Total Protein 7.2 gm/dl (6.4-8.2)
--- NOTE | 2021-09-04 08:02 | Hospitalist Progress Note ---
Date of Service September 04, 2021 Assessment & Plan (1) Pneumonia: Plan: 70-year-old male coming from [place] [place] and history of prior Mycobacterium avium infection, chronic hypoxic respiratory failure in setting of interstitial lung disease on baseline 2 L nasal cannula, anemia, seizure disorder, chronic HFpEF, hypothyroidism, stage III CKD, history of nephrolithiasis, hypertension, GERD, CAD who presented to [facility] at recommendation of PCP for evaluation of cough and congestion for approximately 5 days, currently suspect secondary to acute HFpEF and possible PNA vs. pneumonitis. Acute Hypercapnic Respiratory Failure on Chronic Hypoxic Respiratory Failure Approximately 7 days of worsening cough, shortness of breath in the setting of pre-existing interstitial lung disease and chronic hypoxic respiratory failure requiring 2 L of oxygen at baseline RSV/Flu/COVID-19 NEGATIVE Continues with crackles and wheezing (improved), trace-1+ edema. BNP was elevated to 10k on admit. Was minimally responsive this morning and refused BiPAP evening 09/02 and 09/03. Supposedly this happens at group living when he refuses CPAP at night. Asked CM to have someone bring home unit --> BiPAP placed this morning after VBG with acidosis and worsening acidemia on ABG which was drawn after BiPAP already drawn --> Improvement in mentation in afternoon and to be placed back on O2 during day. Again try CPAP vs BiPAP tonight as tolerared but strongly encouraged CTA negative for PE but notes cardiomegaly, emphysema, and changes of chronic fibrotic lung disease with patchy opacities throughout, greatest LLL suggestive of superimposed pneumonitis and/or CHF. f/u to resolution recommended Does have hx SOLANGE but has been evaluated by pulmonary and ID in past and felt stable and not candidate for treatment given other co-morbidities and psychiatric medications Sputum cx pending -- GS with few poly, mod epi, rare gram + bacilli, rare gram + cocci, however MRSA nasal swab negative and no need for MRSA coverage at this time. 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 Consulted pulmonary for further recs given complex history and does not appear to have had recent follow up --> Recs to continue abx for 5 days, diuretic therapy to keep negative balance and Added mucolytic therapy with flutter valve. --> Added neb hypertonic saline. 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 No plans for bronch Continue cefepime/doxy--> On day 3 of therapy, to be completed after dosing 09/06. MRSA nasal negative Lasix IV given and continued on 20mg IV BID as on 20mg PO BID outpatient --> increased to 30mg IV BID --> Was only about net negative 1L this morning but after increase Lasix is now -2L. Will continue 30mg IV BID for now and monitor Continue fluid restriction Continue Duonebs Q4h, albuterol prn, Tessalon pearls, robitusin prn cough Elevated eosinophils and with increased secretions --> added zyrtec daily and continued. remain elevated Continue fluid restriction, supplemental O2 to keep sat >90. Continue flutter valve and add incentive spirometry Repeat CXR with improvement in opacities Interstitial Lung Disease On record review, patient has previously followed with Dr. Wild of [facility] Appreciated on chest CT Continue Asmanex, Duonebs scheduled as above Sleep apnea CPAP if unable to tolerate BiPAP tonight -- refused last evening due to worry about $$/insurance --> again refused and see above regarding unresponsiveness this morning --> Home unit to be brought in tonight Normocytic anemia Hemoglobin at admission noted to be 9.4, consistent with previous values over the last 2 months Patient previously worked up for iron deficiency anemia per previous notes. No signs or symptoms of GI bleeding at present. Continue iron supplementation (hold while getting IV today) Suspect anemia also contributing/worsening SOB. Most recent iron 68 in May (prior low at 28 in Feb with negative fecal occult blood at that time) --> Iron low at 29, transferrin 206 --> calculated trans%sat low at 10 --> Venofer 300mg IV x 1 and resumed oral supplementation --> Retic count elevated and will check LDH (wnl) hgb low but suspect dilutional from CHF --> increased diuretic as above continue to monitor (2) Acute hyponatremia: Plan: suspected 2nd to CHF as above Improved after increased dose of diuretics this morning Most recent tsh wnl. Continue to monitor (3) Hypoxemia: Plan: see above (4) Chronic diastolic CHF (congestive heart failure): Plan: Hypervolemia in setting of H/O HFpEF Last echo on 07/2019 demonstrating mild cLVH, severe mitral annular calcification, LVEF 65 to 70% As above: In setting of hypervolemia on exam and imaging findings concerning for pulmonary edema, will treat as HFpEF exacerbation Continue metoprolol 50mg daily Initially on Lasix 20mg IV BID. Cr stable ECHO with limited views, LV hyperdynamic, severe mitral annular calcification --> patient kept asking tech to stop and wanted to d/c the test Fluid restriction under 2 L, low-sodium diet, monitor intake and output, daily weights net negative 775cc. --> Increased lasix to 30mg IV BID as above Continue to monitor (5) Abdominal pain: Plan: Patient with history of functional small bowel obstruction, no previous abdominal surgeries No evidence of small bowel obstruction or ileus on CT abdomen pelvis BM yesterday --> continue to monitor (6) Acute and chronic respiratory failure with hypoxia: (7) Chronic respiratory failure with hypoxia: Plan: as above (8) Interstitial lung disease: Plan: as above (9) CKD (chronic kidney disease), stage III: Plan: Baseline creatinine approximately 1.2 -- Improving with diuretics Continue to monitor BMP (10) Edema of both lower extremities: Plan: improving wit diuretics as above --> had to increase today for increased edema (11) Paranoid schizophrenia: Plan: continue home medications (12) CAD in [place] artery: Plan: continue ASA, statin (13) Hypertension: Plan: Low normal --> improved after extra lasix. denied dizziness/lightheadedness continue monitor (14) GERD (gastroesophageal reflux disease): Plan: continue famotidine (15) Seizure disorder: Plan: continue home meds Code: DNR/DNI, confirmed with patient and caregiver on admission Prophylaxis: Lovenox Plan: increased diuretics pulm on consult -- added hypertonic saline nebs, continue abx for 5 days continue to monitor Admission and Anticipated Discharge Date Admission Date: September 02, 2021 Subjective Patient seen this morning. Less responsive. Continued to refuse BiPAP or CPAP last night and more lethargy this morning. Does not appear to be in acute distress or increased work of breathing but awakens and falls back asleep quickly. Alerted respiratory to place on BiPAP and will repeat labs and check ABG. Holding off on CT Head at this time given acidosis on AM VBG for now. ABG drawn on BiPAP but improving. Patient with improvement of mental status and awake/talking this afternoon. Still with BiPAP on and wanting to know if he's allowed to eat and that he went the bed because he wasn't able to get up and wants bedding changed. Alerted RN. He had spoken with [facility] worker on update today and they state this happens at home when Mr Pulido decides he doesn't want to wear his CPAP. Discussed with RN can resume for lunch and place on NC but to place back on BiPAP after. Encouraged use overnight tonight to help with acidosis. CM called [facility] and they will bring patients home CPAP tonight in case patient continues to decline overnight intervention as he had done in the past two nights. Review of Systems Review of Systems: All systems reviewed & are unremarkable except as noted in HPI & below Physical Exam Physical Exam: General: WN/WD male, chronically ill appearing and somnolent, difficult to arouse, no acute distress HEENT: mmm, trachea midline without deviation, pupils equal and reactive Resp: bilateral crackles, decreased air entry, no wheezing appreciated, on 3L NC --> placing on BiPAP currently CV: RRR, loud S2, no m/r/g, 1+ edema b/l LE, +JVD and hepatojugular reflex GI: +BS, non-tender : urinal with clear yellow urine Skin: cool, dry Psych/Neuro: initially alert to sternal rubbing but falling back asleep quickly, no focal deficit --> after BiPAP alert and oriented Results & Data Results & [facility] ([facility]) Vital Signs (Past 12 Hours) Vital Signs Temp Pulse Pulse Resp BP Pulse Ox 09/04/21 07:47 36.4 C L 88 20 100/61 97 09/04/21 07:35 86 18 98 09/04/21 03:51 36.7 C 95 H 18 113/72 93 09/04/21 01:59 100 H 20 90 09/03/21 23:59 106 H 09/03/21 23:05 99 H 20 96 09/03/21 22:52 37.1 C 103 H 20 109/61 93 Laboratory Results 09/04/21 09/04/21 09/04/21 Range/Units 11:25 10:58 10:58 WBC (4.8-10.8) K/uL RBC (4.7-6.1) M/uL Hgb (14.0-18.0) g/dL Hct (42-52) % MCV (80-100) fL MCH (25-34) pg MCHC (32-36) g/dL RDW Std Deviation (36.4-46.3) fL RDW Coeff of [place] (11.5-14.5) % Plt Count (130-400) K/uL MPV (7.4-10.4) fL Immature Gran % (Auto) % Neut % (Auto) % Lymph % (Auto) % [place] % (Auto) % Eos % (Auto) % Baso % (Auto) % Neut # (Auto) (1.4-6.5) K/uL Lymph # (Auto) (1.2-3.4) K/uL [place] # (Auto) (0.11-0.59) K/uL Eos # (Auto) (0-0.5) K/uL Baso # (Auto) (0-0.2) K/uL Immature Gran # (Auto) (0.00-0.02) K/uL Polychromasia ABG pH 7.37 (7.35-7.45) ABG pCO2 55 H (35-46) mmHg ABG pO2 134 H (80-95) mmHg ABG HCO3 31 H (19-24) mmol/L ABG O2 Saturation 98.7 H (90-95) % ABG Base Excess 4.7 H (-9-1.8) mEq/L Nikhil Test Pos (Pos) VBG pH (7.36-7.41) VBG pCO2 (38-50) mmHg VBG pO2 mmHg VBG HCO3 mmol/L VBG O2 Saturation % VBG Base Excess mEq/L Barometric Pressure 741.9 mm/Hg Oxygen Given 35% Sodium (136-145) mmol/L Potassium (3.5-5.1) mmol/L Chloride (98-107) mmol/L Carbon Dioxide (21-32) mmol/L Anion Gap (3-11) BUN (7-18) mg/dl Creatinine (0.6-1.4) mg/dl Est Cr Clr Drug Dosing ml/min Est GFR ( Amer) ml/min Est GFR (Non-Af Amer) ml/min BUN/Creatinine Ratio (10-20) Glucose (70-99) mg/dl Lactate 1.2 (0.4-2.0) mmol/L Calcium (8.5-10.1) mg/dl Magnesium (1.8-2.4) mg/dl Total Bilirubin (0.2-1) mg/dl AST (15-37) U/L ALT (12-78) U/L Alkaline Phosphatase (45-117) U/L Lactate Dehydrogenase (87-241) U/L Total Protein (6.4-8.2) gm/dl Albumin (3.4-5.0) gm/dl Globulin (2.5-4.0) gm/dl Albumin/Globulin Ratio (0.9-2) TSH (0.300-4.500) uIu/ml Urine Color Yellow Urine Appearance Clear (Clear) Urine pH 7.0 (4.5-7.5) Ur Specific [place] 1.014 (1.000-1.030) Urine Protein Negative (Negative) Urine Glucose (UA) Negative (Negative) Urine Ketones Negative (Negative) Urine Blood Negative (Negative) Urine Nitrite Negative (Negative) Urine Bilirubin Negative (Negative) Urine Urobilinogen Negative (Negative) Ur Leukocyte Esterase Negative (Negative) 09/04/21 09/04/21 09/04/21 Range/Units 10:58 10:58 06:43 WBC 10.61 (4.8-10.8) K/uL RBC 3.06 L (4.7-6.1) M/uL Hgb 8.8 L (14.0-18.0) g/dL Hct 29.1 L (42-52) % MCV 95.1 (80-100) fL MCH 28.8 (25-34) pg MCHC 30.2 L (32-36) g/dL RDW Std Deviation 48.1 H (36.4-46.3) fL RDW Coeff of [place] 14.0 (11.5-14.5) % Plt Count 212 (130-400) K/uL MPV 8.7 (7.4-10.4) fL Immature Gran % (Auto) 9.3 % Neut % (Auto) 58.5 % Lymph % (Auto) 11.0 % [place] % (Auto) 12.0 % Eos % (Auto) 8.6 % Baso % (Auto) 0.6 % Neut # (Auto) 6.21 (1.4-6.5) K/uL Lymph # (Auto) 1.17 L (1.2-3.4) K/uL [place] # (Auto) 1.27 H (0.11-0.59) K/uL Eos # (Auto) 0.91 H (0-0.5) K/uL Baso # (Auto) 0.06 (0-0.2) K/uL Immature Gran # (Auto) 0.99 H (0.00-0.02) K/uL Polychromasia 1+ ABG pH (7.35-7.45) ABG pCO2 (35-46) mmHg ABG pO2 (80-95) mmHg ABG HCO3 (19-24) mmol/L ABG O2 Saturation (90-95) % ABG Base Excess (-9-1.8) mEq/L Nikhil Test (Pos) VBG pH (7.36-7.41) VBG pCO2 (38-50) mmHg VBG pO2 mmHg VBG HCO3 mmol/L VBG O2 Saturation % VBG Base Excess mEq/L Barometric Pressure mm/Hg Oxygen Given Sodium 133 L (136-145) mmol/L Potassium 5.0 (3.5-5.1) mmol/L Chloride 98 (98-107) mmol/L Carbon Dioxide 29 (21-32) mmol/L Anion Gap 6.0 (3-11) BUN 20 H (7-18) mg/dl Creatinine 0.98 (0.6-1.4) mg/dl Est Cr Clr Drug Dosing 69.8 ml/min Est GFR ( Amer) 91.4 ml/min Est GFR (Non-Af Amer) 78.9 ml/min BUN/Creatinine Ratio 20.8 H (10-20) Glucose 114 H (70-99) mg/dl Lactate (0.4-2.0) mmol/L Calcium 8.5 (8.5-10.1) mg/dl Magnesium (1.8-2.4) mg/dl Total Bilirubin 0.2 (0.2-1) mg/dl AST 11 L (15-37) U/L ALT 10 L (12-78) U/L Alkaline Phosphatase 79 (45-117) U/L Lactate Dehydrogenase 189 (87-241) U/L Total Protein 7.0 (6.4-8.2) gm/dl Albumin 2.0 L (3.4-5.0) gm/dl Globulin 5.0 H (2.5-4.0) gm/dl Albumin/Globulin Ratio 0.4 L (0.9-2) TSH (0.300-4.500) uIu/ml Urine Color Urine Appearance (Clear) Urine pH (4.5-7.5) Ur Specific [place] (1.000-1.030) Urine Protein (Negative) Urine Glucose (UA) (Negative) Urine Ketones (Negative) Urine Blood (Negative) Urine Nitrite (Negative) Urine Bilirubin (Negative) Urine Urobilinogen (Negative) Ur Leukocyte Esterase (Negative) 09/04/21 09/04/21 09/04/21 Range/Units 06:43 06:43 06:43 WBC 11.26 H (4.8-10.8) K/uL RBC 3.17 L (4.7-6.1) M/uL Hgb 9.2 L (14.0-18.0) g/dL Hct 30.1 L (42-52) % MCV 95.0 (80-100) fL MCH 29.0 (25-34) pg MCHC 30.6 L (32-36) g/dL RDW Std Deviation 48.2 H (36.4-46.3) fL RDW Coeff of [place]ia 14.0 (11.5-14.5) % Plt Count 203 (130-400) K/uL MPV 9.0 (7.4-10.4) fL Immature Gran % (Auto) 9.7 % Neut % (Auto) 59.9 % Lymph % (Auto) 10.2 % [place] % (Auto) 12.0 % Eos % (Auto) 7.7 % Baso % (Auto) 0.5 % Neut # (Auto) 6.74 H (1.4-6.5) K/uL Lymph # (Auto) 1.15 L (1.2-3.4) K/uL [place] # (Auto) 1.35 H (0.11-0.59) K/uL Eos # (Auto) 0.87 H (0-0.5) K/uL Baso # (Auto) 0.06 (0-0.2) K/uL Immature Gran # (Auto) 1.09 H (0.00-0.02) K/uL Polychromasia ABG pH (7.35-7.45) ABG pCO2 (35-46) mmHg ABG pO2 (80-95) mmHg ABG HCO3 (19-24) mmol/L ABG O2 Saturation (90-95) % ABG Base Excess (-9-1.8) mEq/L Nikhil Test (Pos) VBG pH 7.34 L (7.36-7.41) VBG pCO2 61 H (38-50) mmHg VBG pO2 65 mmHg VBG HCO3 32 mmol/L VBG O2 Saturation 85.8 % VBG Base Excess 5.8 mEq/L Barometric Pressure 740.4 mm/Hg Oxygen Given Sodium 131 L (136-145) mmol/L Potassium 4.9 (3.5-5.1) mmol/L Chloride 98 (98-107) mmol/L Carbon Dioxide 31 (21-32) mmol/L Anion Gap 2.0 L (3-11) BUN 22 H (7-18) mg/dl Creatinine 1.06 (0.6-1.4) mg/dl Est Cr Clr Drug Dosing 64.5 ml/min Est GFR ( Amer) 83.2 ml/min Est GFR (Non-Af Amer) 71.8 ml/min BUN/Creatinine Ratio 20.6 H (10-20) Glucose 99 (70-99) mg/dl Lactate (0.4-2.0) mmol/L Calcium 8.7 (8.5-10.1) mg/dl Magnesium 2.8 H (1.8-2.4) mg/dl Total Bilirubin 0.4 (0.2-1) mg/dl AST 14 L (15-37) U/L ALT 11 L (12-78) U/L Alkaline Phosphatase 83 (45-117) U/L Lactate Dehydrogenase (87-241) U/L Total Protein 7.2 (6.4-8.2) gm/dl Albumin 2.1 L (3.4-5.0) gm/dl Globulin 5.1 H (2.5-4.0) gm/dl Albumin/Globulin Ratio 0.4 L (0.9-2) TSH 2.040 (0.300-4.500) uIu/ml Urine Color Urine Appearance (Clear) Urine pH (4.5-7.5) Ur Specific [place] (1.000-1.030) Urine Protein (Negative) Urine Glucose (UA) (Negative) Urine Ketones (Negative) Urine Blood (Negative) Urine Nitrite (Negative) Urine Bilirubin (Negative) Urine Urobilinogen (Negative) Ur Leukocyte Esterase (Negative) Diagnostic Findings Chest X-Ray 09/03/21 17:09 XR chest 1V portable HISTORY: 70 years-old Male follow up acute shortness of breath COMPARISON: Chest radiograph and CTA chest 09/02/2021 TECHNIQUE: Portable AP view of the chest FINDINGS: Cardiac megaly with pulmonary fibrosis redemonstrated. Emphysema. Punctate metallic density foci are again noted overlying the left chest and upper abdomen. Healed chronic mid left clavicular fracture. Degenerative changes of the shoulders and spine. Mild improvement of the mild patchy bilateral airspace opacities. Trace pleural effusions. IMPRESSION: 1. Mildly decreased patchy bilateral airspace opacities. 2. Emphysema with chronic interstitial lung disease. 3. Cardiomegaly. ACT 112: Negative or not required by law. The above report was generated using voice recognition software. It may contain grammatical, syntax or spelling errors. Electronically signed by: Davidson Sandoval M.D. 09/03/2021 7:30 PM PG Care Time/CCT Total # of Minutes Spent Total Time Spent with Patient: Total time spent is greater than 50% in coordination of care (as documented) at patient's floor/unit and/or counseling patient: Coding Level of Care Code 09572 Subseq Hosp Care Lvl 3 Diagnoses Pneumonia J18.9 Laterality: unspecified laterality Lung location: unspecified part of lung Pneumonia type: due to unspecified organism Acute hyponatremia E87.1 Hypoxemia R09.02 Chronic diastolic CHF (congestive heart failure) I50.32 Abdominal pain R10.9 Abdominal location: unspecified location Acute and chronic respiratory failure with hypoxia J96.21 Chronic respiratory failure with hypoxia J96.11 Interstitial lung disease J84.9 CKD (chronic kidney disease), stage III N18.3 Edema of both lower extremities R60.0 Paranoid schizophrenia F20.0 CAD in [place] artery I25.10 Hypertension I10 Hypertension type: essential hypertension GERD (gastroesophageal reflux disease) K21.9 Esophagitis presence: esophagitis presence not specified Seizure disorder G40.909 (1) Pneumonia Laterality: unspecified laterality Lung location: unspecified part of lung Pneumonia type: due to unspecified organism Qualified Code(s): J18.9 - Pneumonia, unspecified organism (2) Abdominal pain Abdominal location: unspecified location Qualified Code(s): R10.9 - Unspecified abdominal pain (3) Hypertension Hypertension type: essential hypertension Qualified Code(s): I10 - Essential (primary) hypertension (4) GERD (gastroesophageal reflux disease) Esophagitis presence: esophagitis presence not specified Qualified Code(s): K21.9 - Gastro-esophageal reflux disease without esophagitis
--- NOTE | 2021-09-04 08:14 | Pulmonary Consultation ---
Date of Consultation September 04, 2021 Assessment & Plan (1) Pneumonia: Laterality: unspecified laterality Lung location: unspecified p art of lung Pneumonia type: due to unspecified organism Qualified Code(s): J18.9 - Pneumonia, unspecified organism (2) Acute and chronic respiratory failure with hypoxia: (3) Interstitial lung disease: (4) Mycobacterium avium complex colonization: CT chest 09/02/2021 personally reviewed: Bronchiectatic changes aspiration the right upper lobe, honeycombing appreciated in the bilateral upper lobes as well as right lower lobe Minimal pleural effusion Cardiomegaly No mediastinal adenopathy Compared to 10/09/[address] chest seem to show mild groundglass opacities. Seems to be progression of his underlying ILD ABG 09/04/2021: 7.37/55/134 on 35% FiO2 --Acute on chronic hypoxic hypercapnic respiratory failure Likely secondary to multilobar pneumonia on top of underlying ILD Component of fluid overload cannot be ruled out Procalcitonin negative NT BNP 10,000 CRP 8.94 Nasal MRSA negative COVID-19 PCR negative 09/02/2021 It is very limited for the patient to use BiPAP when he sleeping and napping. --History of SOLANGE Appreciated on bronchial wash right upper lobe 09/03/2018 Patient has never been treated for it Given the underlying mental status treatment was not pursued --ILD Patient does have significant honeycombing as well as traction bronchiectasis appreciated especially in bilateral upper lobe as well as lower lobes Patient has been following up with Dr. Wild as an outpatient His last note from December 2020 personally reviewed I agree given the overall comorbidities and the mental status further work-up for the underlying ILD would not be appropriate or helpful --History of Aspergillus in one of the BAL wash Is likely a colonizer No need to treat Plan: Continue with antibiotics for total of 5 days Recommend diuretic therapy to keep the patient negative balance O2 supplementation to keep O2 saturation between 90-92% Mucolytic therapy with flutter valve I will add hypertonic saline nebulized Case discussed with Melina Elkins Please note the above document was generated using voice recognition software. It may contain grammatical, syntax or spelling errors.Any formal questions or concerns about the content, text or information contained within the body of this dictation should be directly addressed to the provider for clarification. History of Present Illness Attending Physician: Jason Boyd History of Present Illness 70-year-old male past medical history of ILD on 2 L nasal cannula, HFpEF, SOLANGE, nephrolithiasis, GERD visited the hospital with complaints of cough At the time of examination patient was a BiPAP Patient not use BiPAP overnight which made him somnolent in the morning and he was put on BiPAP Patient does state that he has similar machine at home and has been using it At the time of examination he denied any headache, no nausea, no vomiting It is difficult to get appropriate answers from the patient He denies any headache, he says he has been coughing but not bringing up any phl egm Denies any fever or chills No dysuria, no diarrhea. Patient was recently given 5 days of azithromycin on 08/28/2021 and he had tested negative for Covid at that time Patient follows with Dr. Wild as an outpatient. Last note from him reviewed Allergies Allergy/AdvReac Type Severity Reaction Status Date / Time diltiazem Allergy Intermediate rash and Verified 09/02/21 16:53 edema fentanyl AdvReac Severe Confusion Verified 09/02/21 16:53 Home Medications Medication Instructions Recorded Confirmed Type acetaminophen 500 mg capsule 500 mg PO Q6 PRN 12/10/20 09/02/21 History aspirin 81 mg tablet,delayed 81 mg PO HS 12/10/20 09/02/21 History release clozapine 100 mg tablet 300 mg PO HS 12/10/20 09/02/21 History cyanocobalamin (vitamin B-12) 1,000 mcg PO 2XWK 12/10/20 09/02/21 History 1,000 mcg tablet divalproex 125 mg tablet,delayed 125 mg PO BID 12/10/20 09/02/21 History release divalproex 250 mg tablet,delayed 250 mg PO BID 12/10/20 09/02/21 History release furosemide 20 mg tablet 20 mg PO BID 12/10/20 09/02/21 History magnesium hydroxide 400 mg/5 mL 30 ml PO UD PRN 12/10/20 09/02/21 History oral suspension (Milk of Magnesia) finasteride 5 mg tablet 5 mg PO HS #90 tab 01/02/21 09/02/21 Rx metoprolol succinate 50 mg 50 mg PO QAM #90 tab 03/27/21 09/02/21 Rx tablet,extended release 24 hr phenazopyridine 200 mg tablet 200 mg PO Q8H PRN #10 tab 04/06/21 09/02/21 Rx (Pyridium) ipratropium 0.5 mg-albuterol 3 mg 3 ml INHALATION Q4H PRN #180 ml 04/17/21 09/02/21 Rx (2.5 mg base)/3 mL nebulization soln bisacodyl 5 mg tablet,delayed 5 mg PO DAILY PRN #30 tab 06/11/21 09/02/21 Rx release (Dulcolax (bisacodyl)) cholecalciferol (vitamin D3) 50 50 mcg PO DAILY #90 cap 06/17/21 09/02/21 Rx mcg (2,000 unit) capsule (Vitamin D3) famotidine 20 mg tablet 20 mg PO BID #60 tab 06/17/21 09/02/21 Rx magnesium oxide 400 mg (241.3 mg 400 mg PO QAM #90 tab 06/17/21 09/02/21 Rx magnesium) tablet ferrous sulfate 325 mg (65 mg 325 mg PO BID #180 tab 06/18/21 09/02/21 Rx iron) tablet tamsulosin 0.4 mg capsule 0.4 mg PO HS #90 cap 07/17/21 09/02/21 Rx atorvastatin 40 mg tablet 40 mg PO HS 08/21/21 09/02/21 History levothyroxine 75 mcg tablet 75 mcg PO QAM 08/21/21 09/02/21 History polyethylene glycol 3350 17 gram 17 g PO BID PRN 08/21/21 09/02/21 History oral powder packet hydrocodone 5 mg-acetaminophen 325 1 tab PO TID #90 tab 08/26/21 09/02/21 Rx mg tablet mometasone (Asmanex Twisthaler) 220 mcg INHALATION HS #1 ea 08/26/21 09/02/21 Rx sennosides 8.6 mg tablet 17.2 mg PO BID PRN 08/27/21 09/02/21 History Patient History Medical History Anemia chronic, baseline hgb 10s per chart review Asthma Avascular necrosis BPH (benign prostatic hyperplasia) CAD in [place] artery Per [facility] [place] cardio, "presumed CAD" based on coronary artery calcifications noted on imaging Cavitary lesion of lung Chronic hypoxemic respiratory failure Chronic kidney disease (CKD), stage III (moderate) Chronic pain Dysphagia Edema GERD (gastroesophageal reflux disease) Hiatal hernia Hypercholesterolemia Hypertension Hypothyroidism Inappropriate ADH syndrome Interstitial lung disease On 2L O2 continuous via NC Nontuberculous mycobacterial disease of lung Following with [facility] pulmonary ([place]) Obstructive sleep apnea On 2L O2 continuous via NC Paranoid schizophrenia SBO (small bowel obstruction) Seizure disorder Remote hx several years ago, no seizures since anticonvulsant initiation per [facility] aid 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 No mention of LVOT obstruction, only mild concentric LVH. Echo was reviewed by cardiology 12/2019, felt no further cardiac workup needed. Surgical History History of breast surgery Possible History of bronchoscopy History of cardiac cath Remote > no stents History of cataract surgery R/L History of colonoscopy History of cystoscopy Left cystoscopy, ureteronephroscopy, retropyelogram (10/06/20): LMA#5 at [facility] Family History Father Prostate cancer Mother Lung cancer Denies family history of Breast cancer Colorectal cancer Social History Smoking Status: Never smoker Tobacco Type: Cigarettes Age Quit Using Tobacco: 38; Second Hand Exposure: No; Hx Alcohol Use: No Hx Substance Use: No Preferred Language: Icelandic Communication Ability: Effective Visual Impairment: No Limitations Hearing Ability: Normal Process Manager Required: No Beliefs That Will Affect Care: None marital status: Current Living Situation: Other Current Living Situation Comment: [facility] current occupational status: retired How many Children do You have: 0 Other Information That Helps Us Care for You: No Feels Safe at Home: Yes Safety Concerns: Feels Safe At This Time Seatbelt Use: always Assistive Devices: Oxygen - Continuous and Wheelchair Review of Systems Review of Systems: All systems reviewed & are unremarkable except as noted in HPI & below Physical Exam Physical Exam: Constitutional: No acute distress HEENT: EOMI, PERRLA Respiratory system: Decreased air at bilaterally, no wheeze, positive Velcro- like crackles appreciated bilaterally CVS: S1-S2 positive, no murmurs or gallops, accentuated P2 Abdomen: Soft, nontender, nondistended, positive bowel sounds x4 Extremities: +2 pulses bilaterally radialis/ dorsalis pedis, no cyanosis, +1 pitting edema bilateral lower extremity Neuro: Awake alert oriented to self and place Psych: Normal mood and affect Skin: no rashes, warm and dry Lymphatic: no cervical or axillary lymphadenopathy Results & Data Results & Data ([facility]) Vital Signs (Past 12 Hours) Vital Signs Temp Pulse Pulse Resp BP Pulse Ox 09/04/21 07:47 36.4 C L 88 20 100/61 97 09/04/21 07:35 86 18 98 09/04/21 03:51 36.7 C 95 H 18 113/72 93 09/04/21 01:59 100 H 20 90 09/03/21 23:59 106 H 09/03/21 23:05 99 H 20 96 09/03/21 22:52 37.1 C 103 H 20 109/61 93 09/04/21 06:43 09/04/21 06:43 PG Care Time/CCT Total # of Minutes Spent Total Time Spent with Patient: Total time spent is greater than 50% in coordination of care (as documented) at patient's floor/unit and/or counseling patient: Coding Level of Care Code 53712 Initial Inpt Care Lvl 3 Diagnoses Pneumonia J18.9 Laterality: unspecified laterality Lung location: unspecified part of lung Pneumonia type: due to unspecified organism Acute and chronic respiratory failure with hypoxia J96.21 Interstitial lung disease J84.9 Mycobacterium avium complex colonization Z22.39
[2021-09-04 08:47] LABS: Basophils # (auto) 0.06 K/uL (0-0.2); Basophils % (auto) 0.5 %; Eosinophils # (auto) 0.87 K/uL (0-0.5); Eosinophils % (auto) 7.7 %; Immature Granulocytes # (auto) 1.09 K/uL (0.00-0.02); Immature Granulocytes % (auto) 9.7 %; Lymphocytes # (auto) 1.15 K/uL (1.2-3.4); Lymphocytes % (auto) 10.2 %; Monocytes # (auto) 1.35 K/uL (0.11-0.59); Neutrophils # (auto) 6.74 K/uL (1.4-6.5); Neutrophils % (auto) 59.9 %
[2021-09-04] MEDS: METOPROLOL SUCC 50MG EXT REL TAB PO SCH ×2 (08:54→12:06)
[2021-09-04] MEDS: FAMOTIDINE 20 MG TAB PO SCH ×3 (08:55→20:56)
[2021-09-04] MEDS: MAGNESIUM OXIDE 400 MG TAB PO SCH ×2 (08:55→11:57)
[2021-09-04] MEDS: guaiFENesin 600 MG TABCR PO SCH ×3 (08:55→20:56)
[2021-09-04] MEDS: CYANOCOBALAMIN 500 MCG TABLET (VITAMIN B-12) PO SCH ×2 (08:56→11:58)
[2021-09-04] MEDS: CETIRIZINE HCL 10 MG TABLET PO SCH ×2 (08:56→11:58)
[2021-09-04] MEDS: BENZONATATE 100 MG CAPSULE PO SCH ×4 (08:56→20:58)
[2021-09-04] MEDS: CHOLECALCIFEROL 1,000 UNITS 25 MCG TAB PO SCH ×2 (08:56→11:57)
[2021-09-04] MEDS: DIVALPROEX DELAY RELEASE 250 MG TABEC PO SCH ×3 (08:57→20:59)
[2021-09-04] MEDS: DIVALPROEX DELAY RELEASE 125 MG TABEC PO SCH ×3 (08:57→20:59)
[2021-09-04] MEDS: FUROSEMIDE 40 MG/4 ML VIAL IV SCH ×3 (09:03→17:56)
[2021-09-04] MEDS: POLYETHYLENE (MIRALAX) 17 GM PACK PO SCH ×2 (09:06→21:08)
[2021-09-04] MEDS: FUROSEMIDE INJ 20 MG/2 ML VIAL IV SCH (10:45)
[2021-09-04 11:07] LABS: Hematocrit (blood only) 29.1 % (42-52); Hemoglobin 8.8 g/dL (14.0-18.0); Mean Corpuscular Hemoglobin 28.8 pg (25-34); Mean Corpuscular Volume 95.1 fL (80-100); Mean Platelet Volume 8.7 fL (7.4-10.4); Platelet Count 212 K/uL (130-400); RDW Standard Deviation 48.1 fL (36.4-46.3); Red Blood Count 3.06 M/uL (4.7-6.1); White Blood Count 10.61 K/uL (4.8-10.8)
[2021-09-04 11:11] LABS: Mean Corpuscular Hgb Conc 30.2 g/dL (32-36)
[2021-09-04 11:14] LABS: Base Excess ABG 4.7 mEq/L (-9-1.8); HCO3 ABG 31 mmol/L (19-24); Oxygen Saturation ABG 98.7 % (90-95); PCO2 ABG 55 mmHg (35-46); PO2 ABG 134 mmHg (80-95); pH ABG 7.37 (7.35-7.45)
[2021-09-04 11:15] LABS: Allen Test Pos (Pos)
[2021-09-04 11:25] LABS: Basophils # (auto) 0.06 K/uL (0-0.2); Basophils % (auto) 0.6 %; Eosinophils # (auto) 0.91 K/uL (0-0.5); Eosinophils % (auto) 8.6 %; Immature Granulocytes # (auto) 0.99 K/uL (0.00-0.02); Immature Granulocytes % (auto) 9.3 %; Lymphocytes # (auto) 1.17 K/uL (1.2-3.4); Monocytes # (auto) 1.27 K/uL (0.11-0.59); Neutrophils # (auto) 6.21 K/uL (1.4-6.5); Neutrophils % (auto) 58.5 %; Polychromasia 1+
[2021-09-04 11:28] LABS: BUN Creatinine Ratio 20.8 (10-20); Calcium 8.5 mg/dl (8.5-10.1); Creatinine Clr Calc Pharmacy 69.8 ml/min; Est GFR (African American) 91.4 ml/min; Est GFR (Non-African American) 78.9 ml/min
[2021-09-04 11:31] LABS: Albumin Globulin Ratio 0.4 (0.9-2); Bilirubin,Total 0.2 mg/dl (0.2-1)
[2021-09-04] MEDS: DOXYCYCLINE HYCLATE 100 MG in DEXTROSE 5% 100 ML IV SCH ×2 (11:59→21:41)
[2021-09-04 12:10] LABS: Appearance Urine Clear (Clear); Bilirubin Urine Negative (Negative); Blood Urine Negative (Negative); Color Urine Yellow; Glucose Urine UA Negative (Negative); Ketones Urine Negative (Negative); Leukocyte Esterase Urine Negative (Negative); Nitrite Urine Negative (Negative); Protein Urine Negative (Negative); Specific Gravity Urine 1.014 (1.000-1.030); Urobilinogen Urine Negative (Negative)
[2021-09-04] MEDS: DOCUSATE SODIUM/SENNA 50/8.6MG TAB PO SCH (14:30)
[2021-09-04] MEDS: SODIUM CHLOR 7% 4 ML NEB NEB SCH (19:28)
[2021-09-04] MEDS: FINASTERIDE 5 MG TAB PO SCH (20:55)
[2021-09-04] MEDS: TAMSULOSIN HCL 0.4 MG CAP PO SCH (20:55)
[2021-09-04] MEDS: ASPIRIN 81 MG ECTAB PO SCH (20:58)
[2021-09-04] MEDS: ATORVASTATIN 40 MG TAB PO SCH (20:58)
[2021-09-04] MEDS: cloZAPine 100 MG TAB PO SCH (20:58)
[2021-09-04] MEDS: FLUTICASONE FUROATE 100MCG 14 PUFFS/INHALER INH SCH (21:00)
[2021-09-04] MEDS: FERROUS SULFATE 325 MG TAB PO SCH (21:13)
[2021-09-05] MEDS: ALBUT/IPRATROP 3MG/0.5MG NEB 3 ML VIAL INH SCH ×6 (02:11→23:44)
[2021-09-05] MEDS: CEFEPIME 2,000 MG in SYRINGE 0 ML IV SCH ×3 (06:07→21:45)
[2021-09-05] MEDS: LEVOTHYROXINE SODIUM 75 MCG TABLET PO SCH (06:08)
[2021-09-05] MEDS: SODIUM CHLOR 7% 4 ML NEB NEB SCH ×2 (06:10→19:37)
[2021-09-05 06:55] LABS: Base Excess VBG 5.1 mEq/L; Oxygen Saturation VBG 87.6 %; pH VBG 7.35 (7.36-7.41)
[2021-09-05 06:56] LABS: Hematocrit (blood only) 30.1 % (42-52); Hemoglobin 9.2 g/dL (14.0-18.0); Mean Corpuscular Hemoglobin 29.1 pg (25-34); Mean Corpuscular Hgb Conc 30.6 g/dL (32-36); Mean Corpuscular Volume 95.3 fL (80-100); Mean Platelet Volume 8.8 fL (7.4-10.4); Platelet Count 208 K/uL (130-400); RDW Standard Deviation 48.4 fL (36.4-46.3); Red Blood Count 3.16 M/uL (4.7-6.1); White Blood Count 11.29 K/uL (4.8-10.8)
[2021-09-05 07:30] LABS: BUN Creatinine Ratio 21.4 (10-20); Calcium 9.5 mg/dl (8.5-10.1); Est GFR (African American) 76.2 ml/min; Est GFR (Non-African American) 65.7 ml/min; Potassium 4.9 mmol/L (3.5-5.1)
--- NOTE | 2021-09-05 07:49 | Hospitalist Progress Note ---
Date of Service September 05, 2021 Assessment & Plan (1) Pneumonia: Plan: 70-year-old male coming from [place] and history of prior Mycobacterium avium infection, chronic hypoxic respiratory failure in setting of interstitial lung disease on baseline 2 L nasal cannula, anemia, seizure disorder, chronic HFpEF, hypothyroidism, stage III CKD, history of nephrolithiasis, hypertension, GERD, CAD who presented to [facility] at recommendation of PCP for evaluation of cough and congestion for approximately 5 days, currently suspect secondary to acute HFpEF and possible PNA vs. pneumonitis. Acute Hypercapnic Respiratory Failure on Chronic Hypoxic Respiratory Failure/Interstitial Lung Disease/Sleep Apnea Approximately 7 days of worsening cough, shortness of breath in the setting of pre-existing interstitial lung disease and chronic hypoxic respiratory failure requiring 2 L of oxygen at baseline RSV/Flu/COVID-19 NEGATIVE Continues with crackles and wheezing (improved), trace-1+ edema. BNP was elevated to 10k on admit. CTA negative for PE but notes cardiomegaly, emphysema, and changes of chronic fibrotic lung disease with patchy opacities throughout, greatest LLL suggestive of superimposed pneumonitis and/or CHF. f/u to resolution recommended Minimally responsive morning 09/04, had refused BiPAP evening 09/02 and 09/03. Supposedly this happens at group living when he refuses CPAP at night. Asked CM to have someone bring home unit --> BiPAP placed morning 09/04 after VBG with acidosis and worsening acidemia on ABG which was drawn after BiPAP already drawn--> Improvement in mentation in afternoon and to be placed back on O2 during day. Tried BiPAP overnight and patient refused. He has issues with compliance at baselined --> Asked RN to place back on CPAP or BiPAP if tolerated. Still acidodic but with improved mentation however becoming more sleepy as not utilizing the CPAP/BiPAP with sleep --> RN to place back on and per pulmonary to continue at night due to chronic hypercapnic and hypoxemic respiratory failure Also to have repeat CT chest 2-3 months for f/u on opacities seen CXR on repeat improving opacities Continue cefepime/doxy--> On day 4 of therapy, to be completed after dosing . MRSA nasal negative Sputum cx light normal carson Continue Duonebs Q4h, albuterol prn, Tessalon pearls, robitusin prn cough. Added neb hypertonic saline 11/5. Continue asmanex for ILD Continue fluid restriction, supplemental O2 to keep sat >90. Continue flutter valve and add incentive spirometry Overall still with poor prognosis given whole clinical picture. Has hx SOLANGE but has been evaluated by pulmonary and ID in past and felt stable and not candidate for treatment given other co-morbidities and psychiatric medications. He is currently back on BiPAP 35% FiO2 with O2 sat 96% (2) Chronic diastolic CHF (congestive heart failure): Plan: Acute on Chronic diastolic CHF Continue metoprolol 50mg daily ECHO with limited views, LV hyperdynamic, severe mitral annular calcification --> patient kept asking tech to stop and wanted to d/c the test (Prior ECHO Jul 2019 mild cLVH severe mitral annular calcification, LVEF 65 to 70%) --> Lasix continued 30mg IV BID, 10mg IV was added at 10:30 and will decrease to 20mg IV BID and continue extra 10mg dose as ordered Continue fluid restriction Net -1.5L overnight, cumulative -2.8L Continue to monitor (3) Acute hyponatremia: Plan: suspected 2nd to CHF as above, improved w diuretics and stable at 133 Improved after increased dose of diuretics morning 09/04 Most recent tsh wnl. Continue to monitor (4) Hypoxemia: Plan: see above (5) Abdominal pain: Plan: Patient with history of functional small bowel obstruction, no previous abdominal surgeries No evidence of small bowel obstruction or ileus on CT abdomen pelvis No pain reported today (6) Acute and chronic respiratory failure with hypoxia: Plan: as above (7) Chronic respiratory failure with hypoxia: Plan: as above (8) Interstitial lung disease: Plan: as above (9) CKD (chronic kidney disease), stage III: Plan: Baseline creatinine approximately 1.2 -- Cr currently 1.14 Stable on diuretics and will continue to monitor BMP (10) Edema of both lower extremities: Plan: stable 1+ diuretics/fluid restriction as above (11) Paranoid schizophrenia: Plan: continue home medications (12) CAD in [place] artery: Plan: continue ASA, statin (13) Hypertension: Plan: Low normal BB as above Diuretics for CHF (14) GERD (gastroesophageal reflux disease): Plan: continue famotidine (15) Seizure disorder: Plan: continue home meds Code: DNR/DNI, confirmed with patient and caregiver on admission Prophylaxis: Lovenox Plan: Continue to monitor Admission and Anticipated Discharge Date Admission Date: September 02, 2021 Subjective Patient evaluated this morning. Breathing stable but still with cough. Only wore BiPAP for 30min-1hour overnight and is having more sleepiness this monring. CPAP from home on window-- discussed he should use this with napping and overnight to prevent further issues. RN to go back in and further encourage compliance. Voiding lots but states feels like he needs to go currently. Continuing on lasix. Denies lightheadedness/dizziness but he hasn't been up yet. No chest pain, nausea, vomiting or diarrhea reported despite overnight note. NO abdominal pain and does have bowel sounds but will continue bowel regimen to prevent constipation. Review of Systems Review of Systems: All systems reviewed & are unremarkable except as noted in HPI & below Physical Exam Physical Exam: General: WN/WD male, chronically ill appearing and somnolent, sleepy on 3L NC, no acute distress HEENT: mmm, trachea midline without deviation, pupils equal and reactive Resp: bilateral crackles, decreased air entry, no wheezing appreciated, on 3L NC --> placing on BiPAP currently CV: RRR, loud S2, no m/r/g, 1+ edema b/l LE, +JVD and + hepatojugular reflex GI: +BS, non-tender : urinal with clear yellow urine Skin: cool, dry Psych/Neuro: AOx3, moves all extremities, no focal deficit Results & Data Results & Data ([facility]) Vital Signs (Past 12 Hours) Vital Signs Temp Pulse Pulse Resp BP BP Pulse Ox 09/05/21 06:53 36.4 C L 102 H 18 99/63 L 95 09/05/21 06:10 94 H 21 98 09/05/21 03:10 36.6 C 99 H 18 105/66 95 09/05/21 02:11 105 H 103 H 24 93 09/05/21 01:36 100 H 09/04/21 23:03 36.6 C 105 H 18 110/56 L 94 09/04/21 22:43 99 H 99 H 21 98 09/04/21 20:22 36.3 C L 101 H 18 109/66 100 Laboratory Results 09/05/21 09/05/21 09/05/21 Range/Units 06:44 06:44 06:44 WBC 11.29 H (4.8-10.8) K/uL RBC 3.16 L (4.7-6.1) M/uL Hgb 9.2 L (14.0-18.0) g/dL Hct 30.1 L (42-52) % MCV 95.3 (80-100) fL MCH 29.1 (25-34) pg MCHC 30.6 L (32-36) g/dL RDW Std Deviation 48.4 H (36.4-46.3) fL RDW Coeff of [place]ia 14.0 (11.5-14.5) % Plt Count 208 (130-400) K/uL MPV 8.8 (7.4-10.4) fL VBG pH 7.35 L (7.36-7.41) VBG pCO2 60 H (38-50) mmHg VBG pO2 58 mmHg VBG HCO3 32 mmol/L VBG O2 Saturation 87.6 % VBG Base Excess 5.1 mEq/L Barometric Pressure 741.9 mm/Hg Sodium 133 L (136-145) mmol/L Potassium 4.9 (3.5-5.1) mmol/L Chloride 98 (98-107) mmol/L Carbon Dioxide 30 (21-32) mmol/L Anion Gap 5.0 (3-11) BUN 24 H (7-18) mg/dl Creatinine 1.14 (0.6-1.4) mg/dl Est Cr Clr Drug Dosing 60.0 ml/min Est GFR ( Amer) 76.2 ml/min Est GFR (Non-Af Amer) 65.7 ml/min BUN/Creatinine Ratio 21.4 H (10-20) Glucose 100 H (70-99) mg/dl Calcium 9.5 (8.5-10.1) mg/dl Diagnostic Findings Chest X-Ray 09/05/21 07:48 XR chest 1V portable HISTORY: 70 years-old Male f/u follow-up study in a patient with shortness of breath and pulmonary opacities COMPARISON: Chest radiograph 09/03/2021 TECHNIQUE: AP view of the chest FINDINGS: Cardiomegaly with chronic interstitial lung disease. No pneumothorax. Trace pleural effusions. Mildly improved aeration of the left lung. Scattered metallic density foci of the chest redemonstrated. Healed chronic fracture deformity of the left clavicle. Degenerative changes of the shoulders and spine. IMPRESSION: 1. Mildly improved aeration of the left lung. 2. Cardiomegaly with chronic interstitial lung disease. 3. Unchanged trace pleural effusions. ACT 112: Negative or not required by law. The above report was generated using voice recognition software. It may contain grammatical, syntax or spelling errors. Electronically signed by: Davidson Sandoval M.D. 09/05/2021 9:56 AM PG Care Time/CCT Total # of Minutes Spent Total Time Spent with Patient: Total time spent is greater than 50% in coordination of care (as documented) at patient's floor/unit and/or counseling patient: Coding Level of Care Code 84215 Subseq Hosp Care Lvl 3 Diagnoses Pneumonia J18.9 Laterality: unspecified laterality Lung location: unspecified part of lung Pneumonia type: due to unspecified organism Acute hyponatremia E87.1 Hypoxemia R09.02 Chronic diastolic CHF (congestive heart failure) I50.32 Abdominal pain R10.9 Abdominal location: unspecified location Acute and chronic respiratory failure with hypoxia J96.21 Chronic respiratory failure with hypoxia J96.11 Interstitial lung disease J84.9 CKD (chronic kidney disease), stage III N18.3 Edema of both lower extremities R60.0 Paranoid schizophrenia F20.0 CAD in [place] artery I25.10 Hypertension I10 Hypertension type: essential hypertension GERD (gastroesophageal reflux disease) K21.9 Esophagitis presence: esophagitis presence not specified Seizure disorder G40.909 (1) GERD (gastroesophageal reflux disease) Esophagitis presence: esophagitis presence not specified Qualified Code(s): K21.9 - Gastro-esophageal reflux disease without esophagitis (2) Abdominal pain Abdominal location: unspecified location Qualified Code(s): R10.9 - Unspecified abdominal pain (3) Hypertension Hypertension type: essential hypertension Qualified Code(s): I10 - Essential (primary) hypertension (4) Pneumonia Laterality: unspecified laterality Lung location: unspecified part of lung Pneumonia type: due to unspecified organism Qualified Code(s): J18.9 - Pneumonia, unspecified organism
[2021-09-05] MEDS: ENOXAPARIN INJ 30 MG/0.3 ML SYR SQ SCH ×2 (08:57→19:50)
[2021-09-05] MEDS: BENZONATATE 100 MG CAPSULE PO SCH ×3 (08:58→20:21)
[2021-09-05] MEDS: DIVALPROEX DELAY RELEASE 125 MG TABEC PO SCH ×2 (08:59→20:23)
[2021-09-05] MEDS: guaiFENesin 600 MG TABCR PO SCH ×2 (08:59→20:25)
[2021-09-05] MEDS: FAMOTIDINE 20 MG TAB PO SCH ×2 (08:59→20:21)
[2021-09-05] MEDS: MAGNESIUM OXIDE 400 MG TAB PO SCH (09:00)
[2021-09-05] MEDS: METOPROLOL SUCC 50MG EXT REL TAB PO SCH (09:00)
[2021-09-05] MEDS: POLYETHYLENE (MIRALAX) 17 GM PACK PO SCH ×2 (09:01→20:19)
[2021-09-05] MEDS: FUROSEMIDE 40 MG/4 ML VIAL IV SCH ×2 (09:01→16:06)
[2021-09-05] MEDS: CETIRIZINE HCL 10 MG TABLET PO SCH (09:02)
[2021-09-05] MEDS: DIVALPROEX DELAY RELEASE 250 MG TABEC PO SCH ×2 (09:02→20:22)
[2021-09-05] MEDS: CHOLECALCIFEROL 1,000 UNITS 25 MCG TAB PO SCH (09:02)
--- NOTE | 2021-09-05 09:57 | XRay Report ---
XR chest 1V portable HISTORY: 70 years-old Male f/u follow-up study in a patient with shortness of breath and pulmonary o pacities COMPARISON: Chest radiograph 09/03/2021 TECHNIQUE: AP view of the chest FINDINGS: Cardiomegaly with chronic interstitial lung disease. No pneumothorax. Trace pleural effusions. Mildly improved aeration of the left lung. Scattered metallic density foci of the chest redemonstrated. Hea led chronic fracture deformity of the left clavicle. Degenerative changes of the shoulders and spine. IMPRESSION: 1. Mildly improved aeration of the left lung. 2. Cardiomegaly with chronic interstitial lung disease. 3. Unchanged trace pleural effusions. ACT 112: Negative or not required by law. The above report was generated using voice recognition software. It may contain grammatical, syntax o r spelling errors. Electronically signed by: Davidson Sandoval M.D. 09/05/2021 9:56 AM
[2021-09-05] MEDS: DOCUSATE SODIUM/SENNA 50/8.6MG TAB PO SCH (11:00)
[2021-09-05] MEDS: FERROUS SULFATE 325 MG TAB PO SCH ×2 (11:01→20:20)
[2021-09-05] MEDS: DOXYCYCLINE HYCLATE 100 MG in DEXTROSE 5% 100 ML IV SCH ×2 (11:05→21:45)
[2021-09-05] MEDS: FUROSEMIDE INJ 20 MG/2 ML VIAL IV SCH (12:08)
[2021-09-05] MEDS: ACETAMINOPHEN 325 MG TAB PO PRN (14:07)
--- NOTE | 2021-09-05 15:55 | Pulmonology Progress Note ---
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 Presenting due to shortness of breath and hypoxia. He appears to be clinically improving with IV diuretic therapy. He is down to - 3.29 L. He is also on broad-spectrum antibiotics. I do not see clear evidence of acute bacterial pneumonia at this time. Antibiotics can be deescalated to oral therapy for a total of 5 to 7 days. He does have a history of chronic SOLANGE which has not been treated due to his complex psychosocial situation. He is currently on Clozaril and has advanced comorbidities. I did have a discussion with his outpatient infectious disease doctor in the outpatient setting regardin g treatment of SOLANGE and it was decided to forego treatment at that time due to interactions with his psychiatric medications and comorbidities. There is no obvious progression of interstitial lung disease seen on his most recent CT chest. There are groundglass opacities which are likely related to volume overload given his clinical picture. He is baseline on 2 L of oxygen and he is currently on 3 L of oxygen in the hospital saturating in the 90s. I would recommend weaning down his oxygen to maintain saturations of 88 to 92%. Recommend continued BiPAP at night due to his chronic hypercapnic and hypoxemic respiratory failure. Recommend repeating a chest CT in 2 to 3 months to follow-up on the opacities seen on the chest CT from 09/02/2021. Chest x-ray from today demonstrates improving interstitial opacities. Pulmonary will sign off. Thank you for the consult. Admission and Anticipated Discharge Date Admission Date: September 02, 2021 Subjective Patient seen and examined. Complaining of abdominal pain. Difficult to understand given baseline garbled speech. Does not appear to be in significant distress at this time. No overnight events. Discussed with bedside nurse who relates that the patient has had numerous complaints throughout the hospitalization. He does not appear short of breath. Currently on 3 L nasal cannula. Review of Systems Review of Systems: All systems reviewed & are unremarkable except as noted in HPI & below Physical Exam Physical Exam: Constitutional: No acute distress HEENT: EOMI, PERRLA Respiratory system: Decreased air at bilaterally, no wheeze, positive Velcro- like crackles appreciated bilaterally CVS: S1-S2 positive, no murmurs or gallops, accentuated P2 Abdomen: Soft, nontender, nondistended, positive bowel sounds x4 Extremities: +2 pulses bilaterally radialis/ dorsalis pedis, no cyanosis, +1 pitting edema bilateral lower extremity Neuro: Awake alert oriented to self and place Psych: Normal mood and affect Skin: no rashes, warm and dry Lymphatic: no cervical or axillary lymphadenopathy Results & Data Results & Data ([facility]) Vital Signs (Past 12 Hours) Vital Signs Temp Pulse Pulse Resp BP Pulse Ox 09/05/21 15:26 97.5 F L 87 20 105/66 96 09/05/21 15:16 83 83 23 98 09/05/21 11:59 98.2 F 90 20 105/68 92 09/05/21 10:54 91 H 18 92 09/05/21 09:17 101 H 108/66 09/05/21 06:53 97.5 F L 102 H 18 99/63 L 95 09/05/21 06:10 94 H 21 98 PG Care Time/CCT Total # of Minutes Spent Total Time Spent with Patient: Total time spent is greater than 50% in coordination of care (as documented) at patient's floor/unit and/or counseling patient: Coding Level of Care Code 89219 Subseq Hosp Care Lvl 2 Diagnoses Pneumonia J18.9 Laterality: unspecified laterality Lung location: unspecified part of lung Pneumonia type: due to unspecified organism Acute and chronic respiratory failure with hypoxia J96.21 Interstitial lung disease J84.9 Mycobacterium avium complex colonization Z22.39 [facility] current use of clozapine Z79.899
[2021-09-05] MEDS ORDERED: FUROSEMIDE INJ 20 MG/2 ML VIAL IV SCH (17:00)
[2021-09-05] MEDS: TAMSULOSIN HCL 0.4 MG CAP PO SCH (20:19)
[2021-09-05] MEDS: FINASTERIDE 5 MG TAB PO SCH (20:20)
[2021-09-05] MEDS: ATORVASTATIN 40 MG TAB PO SCH (20:21)
[2021-09-05] MEDS: ASPIRIN 81 MG ECTAB PO SCH (20:22)
[2021-09-05] MEDS: FLUTICASONE FUROATE 100MCG 14 PUFFS/INHALER INH SCH (20:23)
[2021-09-05] MEDS: cloZAPine 100 MG TAB PO SCH (20:23)
[2021-09-06] MEDS: ALBUT/IPRATROP 3MG/0.5MG NEB 3 ML VIAL INH SCH ×6 (02:28→22:01)
[2021-09-06] MEDS: SODIUM CHLOR 7% 4 ML NEB NEB SCH ×2 (06:05→19:05)
[2021-09-06] MEDS: CEFEPIME 2,000 MG in SYRINGE 0 ML IV SCH (06:29)
[2021-09-06] MEDS: LEVOTHYROXINE SODIUM 75 MCG TABLET PO SCH (06:29)
[2021-09-06] MEDS: ENOXAPARIN INJ 30 MG/0.3 ML SYR SQ SCH ×2 (06:30→19:13)
[2021-09-06 07:47] LABS: Hematocrit (blood only) 31.2 % (42-52); Hemoglobin 9.4 g/dL (14.0-18.0); Mean Corpuscular Hemoglobin 28.7 pg (25-34); Mean Corpuscular Hgb Conc 30.1 g/dL (32-36); Mean Corpuscular Volume 95.4 fL (80-100); Mean Platelet Volume 8.9 fL (7.4-10.4); Platelet Count 219 K/uL (130-400); RDW Coefficient of Variation 13.9 % (11.5-14.5); Red Blood Count 3.27 M/uL (4.7-6.1); White Blood Count 12.02 K/uL (4.8-10.8)
[2021-09-06 07:52] LABS: Base Excess VBG 3.4 mEq/L; Oxygen Saturation VBG 85.5 %; pH VBG 7.33 (7.36-7.41)
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
[2021-09-06 08:15] LABS: BUN Creatinine Ratio 24.4 (10-20); Calcium 9.6 mg/dl (8.5-10.1); Creatinine Clr Calc Pharmacy 59.5 ml/min; Est GFR (African American) 75.4 ml/min; Potassium 4.7 mmol/L (3.5-5.1)
[2021-09-06 08:45] LABS: Basophils # (auto) 0.08 K/uL (0-0.2); Basophils % (auto) 0.7 %; Eosinophils # (auto) 0.92 K/uL (0-0.5); Eosinophils % (auto) 7.6 %; Immature Granulocytes # (auto) 0.83 K/uL (0.00-0.02); Immature Granulocytes % (auto) 6.9 %; Lymphocytes % (auto) 14.9 %; Monocytes # (auto) 1.54 K/uL (0.11-0.59); Monocytes % (auto) 12.7 %; Neutrophils # (auto) 6.91 K/uL (1.4-6.5); Neutrophils % (auto) 57.2 %
[2021-09-06] MEDS ORDERED: FUROSEMIDE 40 MG/4 ML VIAL IV SCH (09:00)
[2021-09-06] MEDS: METOPROLOL SUCC 50MG EXT REL TAB PO SCH (09:58)
[2021-09-06] MEDS: DIVALPROEX DELAY RELEASE 125 MG TABEC PO SCH ×2 (09:59→20:34)
[2021-09-06] MEDS: DIVALPROEX DELAY RELEASE 250 MG TABEC PO SCH ×2 (09:59→20:33)
[2021-09-06] MEDS: FERROUS SULFATE 325 MG TAB PO SCH ×2 (09:59→20:33)
[2021-09-06] MEDS: FAMOTIDINE 20 MG TAB PO SCH ×2 (09:59→20:34)
[2021-09-06] MEDS: BENZONATATE 100 MG CAPSULE PO SCH ×2 (09:59→13:49)
[2021-09-06] MEDS: guaiFENesin 600 MG TABCR PO SCH ×2 (09:59→20:58)
[2021-09-06] MEDS: CETIRIZINE HCL 10 MG TABLET PO SCH (09:59)
[2021-09-06] MEDS: CHOLECALCIFEROL 1,000 UNITS 25 MCG TAB PO SCH (10:00)
[2021-09-06] MEDS: MAGNESIUM OXIDE 400 MG TAB PO SCH (10:00)
[2021-09-06] MEDS: DOCUSATE SODIUM/SENNA 50/8.6MG TAB PO SCH ×2 (10:03→13:55)
[2021-09-06] MEDS: POLYETHYLENE (MIRALAX) 17 GM PACK PO SCH ×3 (10:03→20:57)
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
--- NOTE | 2021-09-06 11:00 | XRay Report ---
KUB CLINICAL HISTORY: constipation COMPARISON STUDY: CT of the abdomen and pelvis September 02, 2021. FINDINGS: Bowel gas pattern is normal. There is no evidence for a bowel obstruction. A moderate amoun t stool within the colon is noted. There is minimal stool within the rectum. Chronic deformity of the bilateral hips with severe osteoarthritis is noted. Extensive associated bony remodeling is noted. T hese findings are chronic. There are small bilateral pleural effusions. IMPRESSION: 1. No evidence for a bowel obstruction. 2. Moderate amount of stool within the colon. 3. Small bilateral pleural effusions. ACT 112: Negative or not required by law. Electronically signed by: Seven Wolff M.D. 09/06/2021 10:59 AM
[2021-09-06] MEDS: DOXYCYCLINE HYCLATE 100 MG in DEXTROSE 5% 100 ML IV SCH (12:01)
[2021-09-06] MEDS: DOXYCYCLINE HYCLATE 100 MG CAP PO SCH ×2 (13:49→20:34)
[2021-09-06] MEDS ORDERED: LACTULOSE SYRUP 20 GM/30 ML UDC PO ONE (15:08)
[2021-09-06] MEDS: AMOXICILLIN/CLAVULANATE 875 MG TAB PO SCH (16:46)
[2021-09-06] MEDS ORDERED: FUROSEMIDE 40 MG TAB PO SCH (17:00)
[2021-09-06] MEDS ORDERED: FUROSEMIDE INJ 20 MG/2 ML VIAL IV SCH (17:00)
[2021-09-06] MEDS: FUROSEMIDE 20 MG TAB PO SCH (17:16)
[2021-09-06] MEDS: TAMSULOSIN HCL 0.4 MG CAP PO SCH (20:33)
[2021-09-06] MEDS: ATORVASTATIN 40 MG TAB PO SCH (20:33)
[2021-09-06] MEDS: LACTULOSE SYRUP 20 GM/30 ML UDC PO SCH (20:33)
[2021-09-06] MEDS: ASPIRIN 81 MG ECTAB PO SCH (20:34)
[2021-09-06] MEDS: cloZAPine 100 MG TAB PO SCH (20:34)
[2021-09-06] MEDS: FINASTERIDE 5 MG TAB PO SCH (20:34)
[2021-09-06] MEDS: FLUTICASONE FUROATE 100MCG 14 PUFFS/INHALER INH SCH (20:58)
[2021-09-07] MEDS: ALBUT/IPRATROP 3MG/0.5MG NEB 3 ML VIAL INH SCH ×6 (03:18→22:58)
[2021-09-07] MEDS: LEVOTHYROXINE SODIUM 75 MCG TABLET PO SCH (06:06)
[2021-09-07] MEDS: DOXYCYCLINE HYCLATE 100 MG CAP PO SCH ×2 (06:25→19:59)
[2021-09-07] MEDS: ENOXAPARIN INJ 30 MG/0.3 ML SYR SQ SCH ×2 (06:25→16:14)
[2021-09-07] MEDS: SODIUM CHLOR 7% 4 ML NEB NEB SCH ×2 (07:23→19:38)
[2021-09-07 07:29] LABS: Hematocrit (blood only) 32.9 % (42-52); Hemoglobin 9.8 g/dL (14.0-18.0); Mean Corpuscular Hgb Conc 29.8 g/dL (32-36); Mean Corpuscular Volume 97.3 fL (80-100); Mean Platelet Volume 9.1 fL (7.4-10.4); Platelet Count 221 K/uL (130-400); RDW Standard Deviation 49.6 fL (36.4-46.3); Red Blood Count 3.38 M/uL (4.7-6.1); White Blood Count 11.17 K/uL (4.8-10.8)
[2021-09-07 07:35] LABS: Base Excess VBG 5.7 mEq/L; HCO3 VBG 34 mmol/L; PCO2 VBG 74 mmHg (38-50); PO2 VBG 37 mmHg; pH VBG 7.28 (7.36-7.41)
[2021-09-07 07:39] LABS: Oxygen Saturation VBG < 60.0 %
[2021-09-07 07:47] LABS: Basophils % (auto) 0.9 %; Eosinophils # (auto) 0.78 K/uL (0-0.5); Immature Granulocytes # (auto) 0.89 K/uL (0.00-0.02); Lymphocytes # (auto) 2.18 K/uL (1.2-3.4); Lymphocytes % (auto) 19.5 %; Monocytes # (auto) 1.55 K/uL (0.11-0.59); Monocytes % (auto) 13.9 %; Neutrophils # (auto) 5.67 K/uL (1.4-6.5); Neutrophils % (auto) 50.7 %
[2021-09-07 07:55] LABS: BUN Creatinine Ratio 23.8 (10-20); Calcium 9.8 mg/dl (8.5-10.1); Creatinine Clr Calc Pharmacy 54.3 ml/min; Est GFR (African American) 67.5 ml/min; Est GFR (Non-African American) 58.2 ml/min; Potassium 4.7 mmol/L (3.5-5.1)
[2021-09-07] MEDS: AMOXICILLIN/CLAVULANATE 875 MG TAB PO SCH ×2 (08:02→16:14)
[2021-09-07] MEDS: FUROSEMIDE 20 MG TAB PO SCH ×2 (08:03→16:14)
[2021-09-07] MEDS: DIVALPROEX DELAY RELEASE 125 MG TABEC PO SCH ×2 (08:03→20:01)
[2021-09-07] MEDS: CHOLECALCIFEROL 1,000 UNITS 25 MCG TAB PO SCH (08:03)
[2021-09-07] MEDS: DIVALPROEX DELAY RELEASE 250 MG TABEC PO SCH ×2 (08:03→20:01)
[2021-09-07] MEDS: MAGNESIUM OXIDE 400 MG TAB PO SCH (08:03)
[2021-09-07] MEDS: METOPROLOL SUCC 50MG EXT REL TAB PO SCH (08:03)
[2021-09-07] MEDS: CYANOCOBALAMIN 500 MCG TABLET (VITAMIN B-12) PO SCH (08:03)
[2021-09-07] MEDS: FERROUS SULFATE 325 MG TAB PO SCH ×2 (08:03→19:59)
[2021-09-07] MEDS: FAMOTIDINE 20 MG TAB PO SCH ×2 (08:03→19:58)
[2021-09-07] MEDS: guaiFENesin 600 MG TABCR PO SCH ×2 (08:04→20:00)
[2021-09-07] MEDS: DOCUSATE SODIUM/SENNA 50/8.6MG TAB PO SCH (08:04)
[2021-09-07] MEDS: POLYETHYLENE (MIRALAX) 17 GM PACK PO SCH ×2 (08:04→19:58)
[2021-09-07] MEDS: LACTULOSE SYRUP 20 GM/30 ML UDC PO SCH ×2 (08:06→20:01)
--- NOTE | 2021-09-07 08:55 | Palliative Care Consultation ---
Date of Consultation September 07, 2021 Assessment & Plan (1) Palliative care encounter: Mr. Pulido is a 70 year old gentleman who presented to the [facility] from [facility] with increased weakness and shortness of breath. He has an extensive medical history that was obtained from his caregiver including: M.Bacteriu Avium, ILD, hypothryoidism, CKD3, HTN, BPH, and anemia of chronic disease. During admission, ground glass opacities were noted on diagnostic imaging. At baseline his speech is garbled.Speech Therapy did evaluate Ms. Pulido today with known aspiration noted. He does live at the [facility]. Palliative Medicine was consulted to discuss overall goals of care. I was able to talk with Mr. Pulido. He was able to answer simple yes or no questions to me. I talked with Sreekanth, one of his caregivers, at [facility] at [phone]. We talked at length about Mahesh' capabilities at the alf. He said that eating is very important to him, especially fast foods. He said that permissive aspiration is something that they are keen on. I confirmed that [facility] holds his POA and that they are the decision makers. They confirmed that they are ready and able to accept him back when medically stable. Further discussion to be held with the other caregivers at [facility] regarding future hospitalizations. I plan to call Isa tomorrow prior to 3PM. Palliative Care will follow. (2) Dysphagia: (3) Weakness: History of Present Illness Reason for Consultation: Goals of care Requesting Physician: Melina Elkins PA-C Attending Physician: Paulino Vance MD History of Present Illness Mr. Pulido is a 70 year old gentleman who presented to the [facility] from [facility] with increased weakness and shortness of breath. He has an extensive medical history that was obtained from his caregiver including: M.Bacteriu Avium, ILD, hypothryoidism, CKD3, HTN, BPH, and anemia of chronic disease. During admission, ground glass opacities were noted on diagnostic imaging. At baseline his speech is garbled.Speech Therapy did evaluate Ms. Pulido today with known aspiration noted. He does live at the [facility]. Palliative Medicine was consulted to discuss overall goals of care. Please see A/P for further details. Thanks for involving Palliative Medicine with this individual. Allergies Allergy/AdvReac Type Severity Reaction Status Date / Time diltiazem Allergy Intermediate rash and Verified 09/02/21 16:53 edema fentanyl AdvReac Severe Confusion Verified 09/02/21 16:53 Home Medications Medication Instructions Recorded Confirmed Type acetaminophen 500 mg capsule 500 mg PO Q6 PRN 12/10/20 09/02/21 History aspirin 81 mg tablet,delayed 81 mg PO HS 12/10/20 09/02/21 History release clozapine 100 mg tablet 300 mg PO HS 12/10/20 09/02/21 History cyanocobalamin (vitamin B-12) 1,000 mcg PO 2XWK 12/10/20 09/02/21 History 1,000 mcg tablet divalproex 125 mg tablet,delayed 125 mg PO BID 12/10/20 09/02/21 History release divalproex 250 mg tablet,delayed 250 mg PO BID 12/10/20 09/02/21 History release furosemide 20 mg tablet 20 mg PO BID 12/10/20 09/02/21 History magnesium hydroxide 400 mg/5 mL 30 ml PO UD PRN 12/10/20 09/02/21 History oral suspension (Milk of Magnesia) finasteride 5 mg tablet 5 mg PO HS #90 tab 01/02/21 09/02/21 Rx metoprolol succinate 50 mg 50 mg PO QAM #90 tab 03/27/21 09/02/21 Rx tablet,extended release 24 hr phenazopyridine 200 mg tablet 200 mg PO Q8H PRN #10 tab 04/06/21 09/02/21 Rx (Pyridium) ipratropium 0.5 mg-albuterol 3 mg 3 ml INHALATION Q4H PRN #180 ml 04/17/21 09/02/21 Rx (2.5 mg base)/3 mL nebulization soln bisacodyl 5 mg tablet,delayed 5 mg PO DAILY PRN #30 tab 06/11/21 09/02/21 Rx release (Dulcolax (bisacodyl)) cholecalciferol (vitamin D3) 50 50 mcg PO DAILY #90 cap 06/17/21 09/02/21 Rx mcg (2,000 unit) capsule (Vitamin D3) famotidine 20 mg tablet 20 mg PO BID #60 tab 06/17/21 09/02/21 Rx magnesium oxide 400 mg (241.3 mg 400 mg PO QAM #90 tab 06/17/21 09/02/21 Rx magnesium) tablet ferrous sulfate 325 mg (65 mg 325 mg PO BID #180 tab 06/18/21 09/02/21 Rx iron) tablet tamsulosin 0.4 mg capsule 0.4 mg PO HS #90 cap 07/17/21 09/02/21 Rx atorvastatin 40 mg tablet 40 mg PO HS 08/21/21 09/02/21 History levothyroxine 75 mcg tablet 75 mcg PO QAM 08/21/21 09/02/21 History polyethylene glycol 3350 17 gram 17 g PO BID PRN 08/21/21 09/02/21 History oral powder packet hydrocodone 5 mg-acetaminophen 325 1 tab PO TID #90 tab 08/26/21 09/02/21 Rx mg tablet mometasone (Asmanex Twisthaler) 220 mcg INHALATION HS #1 ea 08/26/21 09/02/21 Rx sennosides 8.6 mg tablet 17.2 mg PO BID PRN 08/27/21 09/02/21 History Patient History Medical History (Updated 09/07/21 @ 15:41 by VANDANA Wyatt) Anemia chronic, baseline hgb 10s per chart review Asthma Avascular necrosis BPH (benign prostatic hyperplasia) CAD in [place] artery Per [facility] cardio, "presumed CAD" based on coronary artery calcifications noted on imaging Cavitary lesion of lung Chronic hypoxemic respiratory failure Chronic kidney disease (CKD), stage III (moderate) Chronic pain Dysphagia Dysphagia Edema GERD (gastroesophageal reflux disease) Hiatal hernia Hypercholesterolemia Hypertension Hypothyroidism Inappropriate ADH syndrome Interstitial lung disease On 2L O2 continuous via [facility] current use of clozapine Nontuberculous mycobacterial disease of lung Following with [facility] pulmonary (Velinsky) Obstructive sleep apnea On 2L O2 continuous via [place] Palliative care encounter Paranoid schizophrenia SBO (small bowel obstruction) Seizure disorder Remote hx several years ago, no seizures since anticonvulsant initiation per [facility] aid 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 No mention of LVOT obstruction, only mild concentric LVH. Echo was reviewed by cardiology 12/2019, felt no further cardiac workup needed. Weakness Surgical History History of breast surgery Possible History of bronchoscopy History of cardiac cath Remote > no stents History of cataract surgery R/L History of colonoscopy History of cystoscopy Left cystoscopy, ureteronephroscopy, retropyelogram (10/06/20): LMA#5 at [facility] Family History Father Prostate cancer Mother Lung cancer Denies family history of Breast cancer Colorectal cancer Social History Smoking Status: Never smoker Tobacco Type: Cigarettes Age Quit Using Tobacco: 38; Second Hand Exposure: No; Hx Alcohol Use: No Hx Substance Use: No Preferred Language: Korean Communication Ability: Effective Visual Impairment: No Limitations Hearing Ability: Normal Lacquer Maker Required: No Beliefs That Will Affect Care: None marital status: Current Living Situation: Other Current Living Situation Comment: [employer] current occupational status: retired How many Children do You have: 0 Other Information That Helps Us Care for You: No Feels Safe at Home: Yes Safety Concerns: Feels Safe At This Time Seatbelt Use: always Assistive Devices: CPAP, Oxygen - Continuous and Wheelchair Review of Systems Review of Systems: Mcdonald System Assessment Scale: Pain: 0/3 SOB: 1/3 Anxiety: 0/3 Lack of Appetite: 1/3 Palliative Performance Scale: 30% Physical Exam Constitutional: + frail appearing, cooperative and comfortable ENMT: Mouth: + dry oral mucous membranes Respiratory: normal respiratory effort Auscultation: + diminished lung sounds Cardiovascular: Rate/Rhythm: regular rate and regular rhythm Heart Sounds: normal S1 and normal S2 Extremities: normal capillary refill; no edema Gastrointestinal (Abdomen): Inspection/Auscultation: abdomen normal to inspection Percussion/Palpation: abdomen soft Skin: + ecchymosis and + pallor Psychiatric: Orientation: alert, oriented to person and cooperative Insight: + limited insight Judgement: + limited judgement Results & Data ([facility]) Vital Signs (Past 12 Hours) Vital Signs Temp Pulse Pulse Resp BP Pulse Ox 09/07/21 07:54 36.3 C L 94 H 17 109/67 100 09/07/21 07:18 90 19 92 09/07/21 03:20 90 24 98 09/07/21 02:56 36.8 C 99 H 16 115/52 L 90 09/06/21 22:52 37.2 C 98 H 16 103/61 91 09/06/21 22:19 97 H 11/07/21 22:03 95 H 20 96 PG Care Time/CCT Total # of Minutes Spent Total Time Spent with Patient: Total time spent is greater than 50% in coordination of care (as documented) at patient's floor/unit and/or counseling patient: 70 minutes with >50% of that time spent assessing the patient, discussing goals of care with caregivers, and collaborating with IDT Coding Level of Care Code 56153 Initial Inpt Care Lvl 3 Diagnoses Palliative care encounter Z51.5 Dysphagia R13.10 Weakness R53.1 Time Spent (min) 70
--- NOTE | 2021-09-07 10:39 | Hospitalist Progress Note ---
Date of Service September 07, 2021 Assessment & Plan (1) Pneumonia: Plan: 70-year-old male coming from [facility] and history of prior Mycobacterium avium infection, chronic hypoxic respiratory failure in setting of interstitial lung disease on baseline 2 L nasal cannula, anemia, seizure disorder, chronic HFpEF, hypothyroidism, stage III CKD, history of nephrol ithiasis, hypertension, GERD, CAD who presented to [facility] at recommendation of PCP for evaluation of cough and congestion for approximately 5 days, currently suspect secondary to acute HFpEF and possible PNA vs. pneumonitis. Acute Hypercapnic Respiratory Failure on Chronic Hypoxic Respiratory Failure/Interstitial Lung Disease/Sleep Apnea Approximately 7 days of worsening cough, shortness of breath in the setting of pre-existing interstitial lung disease and chronic hypoxic respiratory failure requiring 2 L of oxygen at baseline. Now on 6 L of oxygen RSV/Flu/COVID-19 NEGATIVE BNP was elevated to 10k on admit -- see below regarding diuretics CTA negative for PE but notes cardiomegaly, emphysema, and changes of chronic fibrotic lung disease with patchy opacities throughout, greatest LLL suggestive of superimposed pneumonitis and/or CHF. f/u to resolution recommended. No steroids rec per pulm Minimally responsive morning 09/04, refused BiPAP 09/02-09/03 (happens at [facility] as well and we even had them bring in home unit) BiPAP placed 09/04 with improvement in acidemia however since then has refused and continues with such --> Alerted RT/RN to place back on or at LEAST CPAP if agrees Per pulmonary, to continue at night due to chronic hypercapnic and hypoxemic respiratory failure however patient has continued to refuse and only when becomes so acidotic are we able to intervene. Will place consultation for palliative medicine in AM given progressive worsening pulm fibrosis Titrate oxygen to keep saturations 90 to 92% to prevent worsening of CO2 retention Continued to discuss importance of adherence to CPAP/BiPAP and poor prognosis given ILD/hx SOLANGE but has been evaluated by pulmonary and ID in past and felt stable and not candidate for treatment given other co-morbidities and psychiatric medications Repeat CXR with Slight improvement in interstitial thickening and mild opacities superimposed upon fibrosis, as described above. Cefepime/Doxy. MRSA Nasal NEGATIVE --> changed Doxy to PO and de-escalate to Augmentin as patient does not want anything further in IV and per pulm no indication for acute bacterial pneumonia and would complete 5-7 day course (day 5 would be complete after dosing 09/07 but could extend to 7 days) ? If possibly cefepime contributing to worsening cognitive status vs related to acidosis given continued refusal of BiPAP. Will also check ammonia given hx elevations (likely from psych meds as well) Continue Duonebs Q4h, albuterol prn, neb hypertonic saline added 09/04. Continue Asmanex for ILD Continue fluid restriction, supplemental O2 to keep sat >90. Continue flutter valve and add incentive spirometry Sputum cx light normal carson (no bronch per discussion with pulm) Also to have repeat CT chest 2-3 months for f/u on opacities seen (2) Chronic diastolic CHF (congestive heart failure): Plan: Acute on Chronic diastolic CHF -- suspect medication and dietary indiscretion (LIKES SALT) Continue metoprolol 50mg daily ECHO with limited views, LV hyperdynamic, severe mitral annular calcification --> patient kept asking tech to stop and wanted to d/c the test (Prior ECHO Jul 2019 mild cLVH severe mitral annular calcification, LVEF 65 to 70%) Lasix changed to 30mg PO BID from IV as refusing further IV diuretic (on 20mg BID outpatient) to maintain negative balance as 30mg IV BID for several days and slightly dry Net negative -3.8L Cr stable and will continue (3) Acute hyponatremia: Plan: suspected 2nd to CHF as above, improved w diuretics and stable at 132 however did refuse IV diuretic this morning Most recent tsh wnl. Serial lab studies (4) Hypoxemia: Plan: see above. Titrate oxygen to keep saturations in the 90 to 92% range to prevent further CO2 retention (5) Abdominal pain: Plan: Patient with history of functional small bowel obstruction, no previous abdominal surgeries No evidence of small bowel obstruction or ileus on CT abdomen pelvis BM 09/05. KUB without obstruction (6) Acute and chronic respiratory failure with hypoxia: Plan: as above. Titrate oxygen to keep saturation in the 90 to 92% range to prevent further CO2 retention (7) Chronic respiratory failure with hypoxia: Plan: as above (8) Interstitial lung disease: Plan: as above (9) CKD (chronic kidney disease), stage III: Plan: Baseline creatinine approximately 1.2 -- Cr currently at baseline Stable on diuretics and will continue to monitor BMP (10) Edema of both lower extremities: Plan: stable 1+ diuretics/fluid restriction as above (11) Paranoid schizophrenia: Plan: continue home medications (12) CAD in [place] artery: Plan: continue ASA, statin (13) Hypertension: Plan: Low normal BB as above Diuretics for CHF (14) GERD (gastroesophageal reflux disease): Plan: continue famotidine (15) Seizure disorder: Plan: continue home meds Code: DNR/DNI, confirmed with patient and caregiver on admission Prophylaxis: Lovenox Plan: To be determined Admission and Anticipated Discharge Date Admission Date: September 02, 2021 Subjective No new problems. He remains on oxygen supplementation. We will keep saturations in the 90 to 92% range to prevent worsening CO2 retention. September 06 chest x-ray results noted. Review of Systems Review of Systems: Constitutional-no fever or chills ENT-no blurred vision, no double vision, no epistaxis, no sore throat Respiratory-no cough, no wheezing Cardiac-no palpitations, no chest pain, no syncope GI-no nausea, vomiting, diarrhea, melena, hematochezia -no urinary retention, no urinary incontinence, no dysuria, no hematuria Musculoskeletal-no joint pain, no muscle tenderness Skin-no bruising, no rashes, no pruritus Neuro-no isolated weakness, no paresthesia, no weakness Psych-no depression, no anxiety Physical Exam Physical Exam: General-alert and oriented x3, no fevers, no chills HEENT-head atraumatic and normocephalic, TMs intact bilaterally, pupils equal and reactive to light, extraocular muscles intact Neck-no lymphadenopathy or thyromegaly, trachea midline Chest-adventitious respiratory sounds bilaterally Cardiac-regular rate and rhythm, normal S1 and S2, harsh systolic murmur Abdomen-normal bowel sounds, nontender, no hepatosplenomegaly Extremities-no cyanosis, clubbing, or edema Neuro-cranial nerves II through XII intact, motor and sensory function within normal limits, strength symmetrical 5/5, no focal deficits Psych-normal affect, normal mood Results & Data Results & Data ([facility]) Vital Signs (Past 12 Hours) Vital Signs Temp Pulse Resp BP Pulse Ox 09/07/21 07:54 36.3 C L 94 H 17 109/67 100 09/07/21 07:18 90 19 92 09/07/21 03:20 90 24 98 09/07/21 02:56 36.8 C 99 H 16 115/52 L 90 09/06/21 22:52 37.2 C 98 H 16 103/61 91 Laboratory Results 09/07/21 07:06 09/07/21 07:06 PG Care Time/CCT Total # of Minutes Spent Total Time Spent with Patient: Total time spent is greater than 50% in coordination of care (as documented) at patient's floor/unit and/or counseling patient: Coding Level of Care Code 97464 Subseq Hosp Care Lvl 3 Diagnoses Pneumonia J18.9 Laterality: unspecified laterality Lung location: unspecified part of lung Pneumonia type: due to unspecified organism Chronic diastolic CHF (congestive heart failure) I50.32 Acute hyponatremia E87.1 Hypoxemia R09.02 Abdominal pain R10.9 Abdominal location: unspecified location Acute and chronic respiratory failure with hypoxia J96.21 Chronic respiratory failure with hypoxia J96.11 Interstitial lung disease J84.9 CKD (chronic kidney disease), stage III N18.3 Edema of both lower extremities R60.0 Paranoid schizophrenia F20.0 CAD in [place] artery I25.10 Hypertension I10 Hypertension type: essential hypertension GERD (gastroesophageal reflux disease) K21.9 Esophagitis presence: esophagitis presence not specified Seizure disorder G40.909 (1) Pneumonia Laterality: unspecified laterality Lung location: unspecified part of lung Pneumonia type: due to unspecified organism Qualified Code(s): J18.9 - P neumonia, unspecified organism (2) Abdominal pain Abdominal location: unspecified location Qualified Code(s): R10.9 - Unspecified abdominal pain (3) Hypertension Hypertension type: essential hypertension Qualified Code(s): I10 - Essential (primary) hypertension (4) GERD (gastroesophageal reflux disease) Esophagitis presence: esophagitis presence not specified Qualified Code(s): K21.9 - Gastro-esophageal reflux disease without esophagitis
--- NOTE | 2021-09-07 13:29 | Fluoroscopy Report ---
FL video swallow CLINICAL HISTORY: assess for aspiration COMPARISON STUDY: No previous studies for comparison. FLUOROSCOPY TIME: minutes. NUMBER OF IMAGES: FINDINGS: The patient was given barium of varying consistencies and observed under fluoroscopy with c oncurrent tape recording. Examination is performed in conjunction with a member of the speech patholo gy department. The patient was given the following consistencies of barium: Thin, nectar, pure, mechanical soft and solid. There was laryngeal penetration, spillage and aspiration seen. IMPRESSION: Evidence for laryngeal penetration, spillage and aspiration. Please see report from speech pathology regarding additional findings recommendations. ACT 112: Negative or not required by law. Electronically signed by: Garrick Dela Cruz M.D. 09/07/2021 1:27 PM
[2021-09-07] MEDS: TAMSULOSIN HCL 0.4 MG CAP PO SCH (19:58)
[2021-09-07] MEDS: ASPIRIN 81 MG ECTAB PO SCH (19:59)
[2021-09-07] MEDS: FINASTERIDE 5 MG TAB PO SCH (19:59)
[2021-09-07] MEDS: FLUTICASONE FUROATE 100MCG 14 PUFFS/INHALER INH SCH (20:00)
[2021-09-07] MEDS: cloZAPine 100 MG TAB PO SCH (20:00)
[2021-09-07] MEDS: ATORVASTATIN 40 MG TAB PO SCH (20:01)
[2021-09-08] MEDS: ALBUT/IPRATROP 3MG/0.5MG NEB 3 ML VIAL INH SCH ×6 (03:12→23:06)
[2021-09-08] MEDS: LEVOTHYROXINE SODIUM 75 MCG TABLET PO SCH (06:26)
[2021-09-08] MEDS: ENOXAPARIN INJ 30 MG/0.3 ML SYR SQ SCH ×2 (06:26→16:26)
[2021-09-08] MEDS: DOXYCYCLINE HYCLATE 100 MG CAP PO SCH (06:27)
[2021-09-08] MEDS: SODIUM CHLOR 7% 4 ML NEB NEB SCH ×2 (07:19→19:50)
[2021-09-08] MEDS: FERROUS SULFATE 325 MG TAB PO SCH ×2 (07:50→20:05)
[2021-09-08] MEDS: DIVALPROEX DELAY RELEASE 125 MG TABEC PO SCH ×2 (07:50→20:06)
[2021-09-08] MEDS: CHOLECALCIFEROL 1,000 UNITS 25 MCG TAB PO SCH (07:50)
[2021-09-08] MEDS: DIVALPROEX DELAY RELEASE 250 MG TABEC PO SCH ×2 (07:50→20:05)
[2021-09-08] MEDS: FAMOTIDINE 20 MG TAB PO SCH ×2 (07:50→20:05)
[2021-09-08] MEDS: MAGNESIUM OXIDE 400 MG TAB PO SCH (07:51)
[2021-09-08] MEDS: DOCUSATE SODIUM/SENNA 50/8.6MG TAB PO SCH (07:51)
[2021-09-08] MEDS: AMOXICILLIN/CLAVULANATE 875 MG TAB PO SCH ×2 (07:51→16:25)
[2021-09-08] MEDS: guaiFENesin 600 MG TABCR PO SCH ×2 (07:51→20:07)
[2021-09-08] MEDS: FUROSEMIDE 20 MG TAB PO SCH ×2 (07:52→16:25)
[2021-09-08] MEDS: POLYETHYLENE (MIRALAX) 17 GM PACK PO SCH ×2 (07:52→20:09)
[2021-09-08] MEDS: METOPROLOL SUCC 50MG EXT REL TAB PO SCH (08:24)
--- NOTE | 2021-09-08 14:00 | Hospitalist Progress Note ---
Date of Service September 08, 2021 Assessment & Plan (1) Pneumonia: Plan: Most likely from aspiration PNA barium swallow eval shows evidence of aspiration Will start empiric IV zosyn (2) Chronic diastolic CHF (congestive heart failure): Plan: Acute on Chronic diastolic CHF Continue metoprolol 50mg daily ECHO was sub optimal, patient interferred with the test (Prior ECHO Jul 2019 mild cLVH severe mitral annular calcification, LVEF 65 to 70%) Continue PO lasix 30 mg BID Monitor I/O, daily weight (3) Acute hyponatremia: Plan: Resolved (4) Acute and chronic respiratory failure with hypoxia: Plan: as above. Titrate oxygen to keep saturation in the 90 to 92% range to prevent further CO2 retention (5) Chronic respiratory failure with hypoxia: Plan: as above (6) Interstitial lung disease: Plan: as above (7) CKD (chronic kidney disease), stage III: Plan: serum cr at baseline (8) Edema of both lower extremities: Plan: Trace edema (9) Paranoid schizophrenia: Plan: continue home medications (10) CAD in [place] artery: Plan: continue ASA, statin (11) Hypertension: Plan: Low normal BB as above Diuretics for CHF (12) GERD (gastroesophageal reflux disease): Plan: continue famotidine (13) Seizure disorder: Plan: continue home meds Code: DNR/DNI, confirmed with patient and caregiver on admission Prophylaxis: Lovenox Plan: To be determined Admission and Anticipated Discharge Date Admission Date: September 02, 2021 Subjective Patient seen and examined today, no new complaints Review of Systems Review of Systems: All systems reviewed are negative, apart from the ones contained in the history. Physical Exam Physical Exam: The patient is awake, alert and oriented 3, well developed and well nourished, normocephalic and atraumatic, lying in bed and in no acute distress. HEENT--PERRL, EOMI, mucous membranes and oropharynx mildly dry Neck--supple. No JVD. No bruits. Thyroid normal, trachea midline, no adenopathy. Heart--normal S1 and S2. No murmurs, rubs or gallops. Lungs--Reduce air entry on auscultation. Abdomen--normal bowel sounds and soft. Mild epigastric and left sided abdominal pain Extremities--no cyanosis or clubbing. Trace bilateral leg edema. Dermatologic--normal skin turgor, normal color, no abnormal lymph nodes, no rash. Neurologic--cranial nerves II through XII grossly intact. Rheumatologic--normal range of motion. Psychiatric--normal affect. Results & Data Results & Data ([facility]) Vital Signs (Past 12 Hours) Vital Signs Temp Pulse Pulse Resp BP BP Pulse Ox 09/08/21 11:17 87 20 09/08/21 11:14 97.5 F L 84 17 110/63 100 09/08/21 08:12 98.1 F 105 H 18 119/75 86 L 09/08/21 07:19 103 H 20 09/08/21 07:00 106 H 09/08/21 03:27 97.3 F L 95 H 16 95/60 L 96 09/08/21 03:12 91 H 95 PG Care Time/CCT Total # of Minutes Spent Total Time Spent with Patient: Total time spent is greater than 50% in coordination of care (as documented) at patient's floor/unit and/or counseling patient: Coding Level of Care Code 08265 Subseq Hosp Care Lvl 2 Diagnoses Pneumonia J18.9 Laterality: unspecified laterality Lung location: unspecified part of lung Pneumonia type: due to unspecified organism Chronic diastolic CHF (congestive heart failure) I50.32 Acute hyponatremia E87.1 Acute and chronic respiratory failure with hypoxia J96.21 Chronic respiratory failure with hypoxia J96.11 Interstitial lung disease J84.9 CKD (chronic kidney disease), stage III N18.3 Edema of both lower extremities R60.0 Paranoid schizophrenia F20.0 CAD in [place] artery I25.10 Hypertension I10 Hypertension type: essential hypertension GERD (gastroesophageal reflux disease) K21.9 Esophagitis presence: esophagitis presence not specified Seizure disorder G40.909 (1) Pneumonia Laterality: unspecified laterality Lung location: unspecified part of lung Pneumonia type: due to unspecified organism Qualified Code(s): J18.9 - Pneumonia, unspecified organism (2) Hypertension Hypertension type: essential hypertension Qualified Code(s): I10 - Essential (primary) hypertension (3) GERD (gastroesophageal reflux disease) Esophagitis presence: esophagitis presence not specified Qualified Code(s): K21.9 - Gastro-esophageal reflux disease without esophagitis
--- NOTE | 2021-09-08 14:09 | Palliative Care Progress Note ---
Date of Service September 08, 2021 Assessment & Plan (1) Palliative care encounter: Plan: I was able to meet with Mahesh who was sitting in his chair. He is no apparent distress. I was able to talk with Isa at [facility], at [phone] and we discussed that she prefers arranging a large meeting with Gema, who is his stock wetter and larger decision maker for overall goals of care. She discussed having follow up with Dr. Weir upon discharge to complete a POLST form for future expectations of care. She mentioned that there is a new nurse, Rowena, at [facility] who would like to be involved with making the bigger conversation decisions. For now, it is anticipated that he will be discharged over the next day or two. Palliative care will sign off on this patient. (2) Dysphagia: (3) Weakness: Admission and Anticipated Discharge Date Admission Date: September 02, 2021 Subjective Patient seen and examined today, no new complaints Review of Systems Review of Systems: Freedom System Assessment Scale: Pain: 0/3 SOB: 1/3 Anxiety: 0/3 Lack of Appetite: 1/3 Palliative Performance Scale: 30% Physical Exam Constitutional: + frail appearing, cooperative and comfortable ENMT: Mouth: + dry oral mucous membranes Respiratory: normal respiratory effort Auscultation: + diminished lung sounds Cardiovascular: Rate/Rhythm: regular rate and regular rhythm Heart Sounds: normal S1 and normal S2 Extremities: normal capillary refill; no edema Gastrointestinal (Abdomen): Inspection/Auscultation: abdomen normal to inspection Percussion/Palpation: abdomen soft Skin: + ecchymosis and + pallor Psychiatric: Orientation: alert, oriented to person and cooperative Insight: + limited insight Judgement: + limited judgement Results & Data ([place]) Vital Signs (Past 12 Hours) Vital Signs Temp Pulse Pulse Resp BP BP Pulse Ox 09/08/21 11:17 87 20 09/08/21 11:14 36.4 C L 84 17 110/63 100 09/08/21 08:12 36.7 C 105 H 18 119/75 86 L 09/08/21 07:19 103 H 20 09/08/21 07:00 106 H 09/08/21 03:27 36.3 C L 95 H 16 95/60 L 96 09/08/21 03:12 91 H 95 PG Care Time/CCT Total # of Minutes Spent Total Time Spent with Patient: Total time spent is greater than 50% in coordination of care (as documented) at patient's floor/unit and/or counseling patient: 35 minutes with .>50% of that time spent assessing the patient, discussing goals of care with caregivers and collaborating with IDT Coding Level of Care Code 10380 Subseq Hosp Care Lvl 3 Diagnoses Palliative care encounter Z51.5 Dysphagia R13.10 Weakness R53.1 Time Spent (min) 35
[2021-09-08] MEDS: ASPIRIN 81 MG ECTAB PO SCH (20:05)
[2021-09-08] MEDS: cloZAPine 100 MG TAB PO SCH (20:06)
[2021-09-08] MEDS: ATORVASTATIN 40 MG TAB PO SCH (20:07)
[2021-09-08] MEDS: FINASTERIDE 5 MG TAB PO SCH (20:07)
[2021-09-08] MEDS: TAMSULOSIN HCL 0.4 MG CAP PO SCH (20:07)
[2021-09-08] MEDS: FLUTICASONE FUROATE 100MCG 14 PUFFS/INHALER INH SCH (20:08)
[2021-09-09] MEDS: ALBUT/IPRATROP 3MG/0.5MG NEB 3 ML VIAL INH SCH ×2 (02:22→07:48)
[2021-09-09] MEDS: LEVOTHYROXINE SODIUM 75 MCG TABLET PO SCH (06:02)
[2021-09-09] MEDS: ENOXAPARIN INJ 30 MG/0.3 ML SYR SQ SCH ×2 (06:02→16:50)
[2021-09-09 07:12] LABS: Hemoglobin 10.3 g/dL (14.0-18.0); Mean Corpuscular Hemoglobin 29.1 pg (25-34); Mean Corpuscular Hgb Conc 30.3 g/dL (32-36); Mean Platelet Volume 8.9 fL (7.4-10.4); Platelet Count 212 K/uL (130-400); RDW Coefficient of Variation 13.9 % (11.5-14.5); RDW Standard Deviation 48.7 fL (36.4-46.3); Red Blood Count 3.54 M/uL (4.7-6.1); White Blood Count 9.39 K/uL (4.8-10.8)
[2021-09-09 07:43] LABS: Calcium 10.1 mg/dl (8.5-10.1); Creatinine Clr Calc Pharmacy 53.9 ml/min; Est GFR (African American) 66.8 ml/min; Est GFR (Non-African American) 57.7 ml/min; Potassium 4.3 mmol/L (3.5-5.1)
[2021-09-09] MEDS: SODIUM CHLOR 7% 4 ML NEB NEB SCH (07:48)
[2021-09-09 07:58] LABS: Basophils # (auto) 0.08 K/uL (0-0.2); Basophils % (auto) 0.9 %; Eosinophils # (auto) 0.79 K/uL (0-0.5); Eosinophils % (auto) 8.4 %; Immature Granulocytes # (auto) 0.61 K/uL (0.00-0.02); Immature Granulocytes % (auto) 6.5 %; Lymphocytes # (auto) 2.63 K/uL (1.2-3.4); Monocytes # (auto) 1.25 K/uL (0.11-0.59); Monocytes % (auto) 13.3 %; Neutrophils # (auto) 4.03 K/uL (1.4-6.5); Neutrophils % (auto) 42.9 %
[2021-09-09] MEDS: POLYETHYLENE (MIRALAX) 17 GM PACK PO SCH ×2 (08:03→20:12)
[2021-09-09] MEDS: FAMOTIDINE 20 MG TAB PO SCH ×2 (08:05→20:10)
[2021-09-09] MEDS: FUROSEMIDE 20 MG TAB PO SCH ×2 (08:05→16:51)
[2021-09-09] MEDS: guaiFENesin 600 MG TABCR PO SCH ×2 (08:05→20:12)
[2021-09-09] MEDS: DIVALPROEX DELAY RELEASE 250 MG TABEC PO SCH ×2 (08:06→20:11)
[2021-09-09] MEDS: DIVALPROEX DELAY RELEASE 125 MG TABEC PO SCH ×2 (08:06→20:11)
[2021-09-09] MEDS: MAGNESIUM OXIDE 400 MG TAB PO SCH (08:06)
[2021-09-09] MEDS: CHOLECALCIFEROL 1,000 UNITS 25 MCG TAB PO SCH (08:06)
[2021-09-09] MEDS: METOPROLOL SUCC 50MG EXT REL TAB PO SCH (08:06)
[2021-09-09] MEDS: AMOXICILLIN/CLAVULANATE 875 MG TAB PO SCH ×2 (08:06→16:51)
[2021-09-09] MEDS: FERROUS SULFATE 325 MG TAB PO SCH ×2 (08:06→20:12)
[2021-09-09] MEDS: DOCUSATE SODIUM/SENNA 50/8.6MG TAB PO SCH (08:09)
[2021-09-09] MEDS ORDERED: ALBUT/IPRATROP 3MG/0.5MG NEB 3 ML VIAL INH PRN (09:33)
--- NOTE | 2021-09-09 12:57 | Hospitalist Progress Note ---
Date of Service September 09, 2021 Assessment & Plan (1) Pneumonia: Plan: Most likely from aspiration PNA barium swallow eval shows evidence of aspiration Patient does not want any more IV medications. We will continue p.o. Augmentin Patient will still prefer comfort feeding (2) Chronic diastolic CHF (congestive heart failure): Plan: Acute on Chronic diastolic CHF Continue metoprolol 50mg daily ECHO was sub optimal, patient interferred with the test (Prior ECHO Jul 2019 mild cLVH severe mitral annular calcification, LVEF 65 to 70%) Continue PO lasix 30 mg BID Monitor I/O, daily weight (3) Acute hyponatremia: Plan: Resolved (4) Acute and chronic respiratory failure with hypoxia: Plan: as above. Titrate oxygen to keep saturation in the 90 to 92% range to prevent further CO2 retention (5) Chronic respiratory failure with hypoxia: Plan: as above (6) Interstitial lung disease: Plan: as above (7) CKD (chronic kidney disease), stage III: Plan: serum cr at baseline (8) Edema of both lower extremities: Plan: Trace edema (9) Paranoid schizophrenia: Plan: continue home medications (10) CAD in [place] artery: Plan: continue ASA, statin (11) Hypertension: Plan: Low normal BB as above Diuretics for CHF (12) GERD (gastroesophageal reflux disease): Plan: continue famotidine (13) Seizure disorder: Plan: continue home meds Code: DNR/DNI, confirmed with patient and caregiver on admission Prophylaxis: Lovenox Patient was also evaluated by palliative, Plan: Likely discharge back in the next 24 hours Admission and Anticipated Discharge Date Admission Date: September 02, 2021 Subjective Patient seen and examined today, his voice sounds hoarse states, but difficult to understand him, but he denies shortness of breath or chest pain. Review of Systems Review of Systems: All systems reviewed are negative, apart from the ones contained in the history. Physical Exam Physical Exam: The patient is awake, alert and oriented 3, well developed and well nourished, normocephalic and atraumatic, lying in bed and in no acute distress. HEENT--PERRL, EOMI, mucous membranes and oropharynx mildly dry Neck--supple. No JVD. No bruits. Thyroid normal, trachea midline, no adenopathy. Heart--normal S1 and S2. No murmurs, rubs or gallops. Lungs--Reduce air entry on auscultation. Bibasilar rhonchi and crackles Abdomen--normal bowel sounds and soft. Mild epigastric and left sided abdominal pain Extremities--no cyanosis or clubbing. Trace bilateral leg edema. Dermatologic--normal skin turgor, normal color, no abnormal lymph nodes, no rash. Neurologic--cranial nerves II through XII grossly intact. Rheumatologic--normal range of motion. Psychiatric--normal affect. Results & Data Results & Data ([facility]) Vital Signs (Past 12 Hours) Vital Signs Temp Pulse Resp BP BP Pulse Ox 09/09/21 12:30 97.5 F L 85 20 106/59 L 90 09/09/21 07:50 60 18 99 09/09/21 07:35 98.6 F 87 18 126/75 99 09/09/21 03:13 97.7 F 88 20 117/71 92 09/09/21 02:22 97 H 20 97 Laboratory Results Laboratory Results - last 24 hr 09/09/21 09/09/21 06:48 06:48 WBC 9.39 RBC 3.54 L Hgb 10.3 L Hct 34.0 L MCV 96.0 MCH 29.1 MCHC 30.3 L RDW Std Deviation 48.7 H RDW Coeff of [place] 13.9 Plt Count 212 MPV 8.9 Immature Gran % (Auto) 6.5 Neut % (Auto) 42.9 Lymph % (Auto) 28.0 [place] % (Auto) 13.3 Eos % (Auto) 8.4 Baso % (Auto) 0.9 Neut # (Auto) 4.03 Lymph # (Auto) 2.63 [place] # (Auto) 1.25 H Eos # (Auto) 0.79 H Baso # (Auto) 0.08 Immature Gran # (Auto) 0.61 H Sodium 137 Potassium 4.3 Chloride 101 Carbon Dioxide 31 Anion Gap 6.0 BUN 38 H Creatinine 1.27 Est Cr Clr Drug Dosing 53.9 Est GFR ( Amer) 66.8 Est GFR (Non-Af Amer) 57.7 Fasting Glucose 95 Calcium 10.1 PG Care Time/CCT Total # of Minutes Spent Total Time Spent with Patient: Total time spent is greater than 50% in coordination of care (as documented) at patient's floor/unit and/or counseling patient: Coding Level of Care Code 10247 Subseq Hosp Care Lvl 2 Diagnoses Pneumonia J18.9 Laterality: unspecified laterality Lung location: unspecified part of lung Pneumonia type: due to unspecified organism Chronic diastolic CHF (congestive heart failure) I50.32 Acute hyponatremia E87.1 Acute and chronic respiratory failure with hypoxia J96.21 Chronic respiratory failure with hypoxia J96.11 Interstitial lung disease J84.9 CKD (chronic kidney disease), stage III N18.3 Edema of both lower extremities R60.0 Paranoid schizophrenia F20.0 CAD in [place] artery I25.10 Hypertension I10 Hypertension type: essential hypertension GERD (gastroesophageal reflux disease) K21.9 Esophagitis presence: esophagitis presence not specified Seizure disorder G40.909 (1) Pneumonia Laterality: unspecified laterality Lung location: unspecified part of lung Pneumonia type: due to unspecified organism Qualified Code(s): J18.9 - Pneumonia, unspecified organism (2) Hypertension Hypertension type: essential hypertension Qualified Code(s): I10 - Essential (primary) hypertension (3) GERD (gastroesophageal reflux disease) Esophagitis presence: esophagitis presence not specified Qualified Code(s): K21.9 - Gastro-esophageal reflux disease without esophagitis
[2021-09-09] MEDS: cloZAPine 100 MG TAB PO SCH (20:11)
[2021-09-09] MEDS: ASPIRIN 81 MG ECTAB PO SCH (20:11)
[2021-09-09] MEDS: ATORVASTATIN 40 MG TAB PO SCH (20:11)
[2021-09-09] MEDS: TAMSULOSIN HCL 0.4 MG CAP PO SCH (20:12)
[2021-09-09] MEDS: FINASTERIDE 5 MG TAB PO SCH (20:12)
[2021-09-09] MEDS: FLUTICASONE FUROATE 100MCG 14 PUFFS/INHALER INH SCH (20:12)
[2021-09-10] MEDS: LEVOTHYROXINE SODIUM 75 MCG TABLET PO SCH (06:07)
[2021-09-10] MEDS: ENOXAPARIN INJ 30 MG/0.3 ML SYR SQ SCH (06:07)
[2021-09-10] MEDS: MAGNESIUM OXIDE 400 MG TAB PO SCH (08:04)
[2021-09-10] MEDS: AMOXICILLIN/CLAVULANATE 875 MG TAB PO SCH (08:04)
[2021-09-10] MEDS: guaiFENesin 600 MG TABCR PO SCH (08:05)
[2021-09-10] MEDS: FERROUS SULFATE 325 MG TAB PO SCH (08:05)
[2021-09-10] MEDS: DIVALPROEX DELAY RELEASE 125 MG TABEC PO SCH (08:05)
[2021-09-10] MEDS: CHOLECALCIFEROL 1,000 UNITS 25 MCG TAB PO SCH (08:06)
[2021-09-10] MEDS: METOPROLOL SUCC 50MG EXT REL TAB PO SCH (08:06)
[2021-09-10] MEDS: FAMOTIDINE 20 MG TAB PO SCH (08:07)
[2021-09-10] MEDS: DIVALPROEX DELAY RELEASE 250 MG TABEC PO SCH (08:07)
[2021-09-10] MEDS: FUROSEMIDE 20 MG TAB PO SCH (08:07)
[2021-09-10] MEDS: POLYETHYLENE (MIRALAX) 17 GM PACK PO SCH (09:03)
[2021-09-10] MEDS: DOCUSATE SODIUM/SENNA 50/8.6MG TAB PO SCH (10:26)
--- NOTE | 2021-09-10 13:08 | Discharge Summary ---
Date of Service September 10, 2021 Admission HPI Per Admitting Provider 70-year-old male coming from [place] and history of prior Mycobacterium avium infection, chronic hypoxic respiratory failure in setting of interstitial lung disease on baseline 2 L nasal cannula, anemia, seizure disorder, chronic HFpEF, hypothyroidism, history of nephrolithiasis, hypertension, GERD, CAD who presented to [facility] at recommendation of PCP for evaluation of cough and congestion for approximately 5 days. History is primarily obtained by beef killer. Patient and beef killer reports that over the last week or so, he has been having increased coughing, shortness of breath, and sputum production. Generally speaking, he also reports feeling "off." He denies any fevers, chills, night sweats. He has been taking his medications and nebulizers as prescribed. Is a does add that he has not been responding as well to his nebulizers as he had in the past. Denies any recent infections preceding this. None of his housemates are sick. He has still been able to eat. No nausea or vomiting. He was seen by his PCP on 08/28, where he tested negative for Covid and was given 5 days of azithromycin. Unfortunately, he did not demonstrate adequate response to this. In the room, he reports feeling ill. He complains that coughing is his biggest concern. He does add that he has been unable to sleep due to cough and shortness of breath. Gets worse as he lies down. He says that, at baseline, he struggles with abdominal pain. Has not had a bowel movement since . In the ER, patient was found to have normal vital signs on his baseline oxygen. His weight was 91.9 kg on admission, last recorded at 76.7 kg on 08/21. He was found to have mild leukocytosis to 12 with left shift, hyponatremia to 128, CRP of 9, BNP at 10,200, negative troponin, normal lipase. CTA did demonstrate cardiomegaly, emphysema, chronic fibrotic lung disease, as well as patchy airspace opacities, greatest in the left lower lobe. CT of abdomen pelvis demonstrated mild to moderate constipation. He was given ceftriaxone 1 mg. Principal Diagnosis Aspiration PNA Discharge Exam The patient is awake, alert and oriented 3, well developed and well nourished, normocephalic and atraumatic, lying in bed and in no acute distress. HEENT--PERRL, EOMI, mucous membranes and oropharynx mildly dry Neck--supple. No JVD. No bruits. Thyroid normal, trachea midline, no adenopathy. Heart--normal S1 and S2. No murmurs, rubs or gallops. Lungs--Reduce air entry on auscultation. Bibasilar rhonchi and crackles Abdomen--normal bowel sounds and soft. Mild epigastric and left sided abdominal pain Extremities--no cyanosis or clubbing. Trace bilateral leg edema. Dermatologic--normal skin turgor, normal color, no abnormal lymph nodes, no rash. Neurologic--cranial nerves II through XII grossly intact. Rheumatologic--normal range of motion. Psychiatric--normal affect. Discharge Data Allergies Allergy/AdvReac Type Severity Reaction Status Date / Time diltiazem Allergy Intermediate rash and Verified 09/02/21 16:53 edema fentanyl AdvReac Severe Confusion Verified 09/02/21 16:53 Consultations 09/02/21 17:21 ED Decision to Admit Stat 09/04/21 07:00 Consult Pulmonology Routine 09/06/21 13:49 Consult Palliative Care Routine Ordered Studies 09/02/21 15:07 CT abd pelvis IV con only Stat 09/02/21 15:11 CT angio chest PE protocol Stat 09/07/21 10:00 FL video swallow Routine Hospital Course (1) Pneumonia: Most likely from aspiration PNA barium swallow eval shows evidence of aspiration Patient does not want any more IV medications. We will continue p.o. Augmentin Patient will still prefer comfort feeding (2) Chronic diastolic CHF (congestive heart failure): Acute on Chronic diastolic CHF Continue metoprolol 50mg daily ECHO was sub optimal, patient interferred with the test (Prior ECHO Jul 2019 mild cLVH severe mitral annular calcification, LVEF 65 to 70%) Continue PO lasix 30 mg BID Monitor I/O, daily weight (3) Acute hyponatremia: Resolved (4) Acute and chronic respiratory failure with hypoxia: as above. Titrate oxygen to keep saturation in the 90 to 92% range to prevent further CO2 retention (5) Chronic respiratory failure with hypoxia: as above (6) Interstitial lung disease: as above (7) CKD (chronic kidney disease), stage III: serum cr at baseline (8) Edema of both lower extremities: Trace edema (9) Paranoid schizophrenia: continue home medications (10) CAD in [place] artery: continue ASA, statin (11) Hypertension: Low normal BB as above Diuretics for CHF (12) GERD (gastroesophageal reflux disease): continue famotidine (13) Seizure disorder: continue home meds Code: DNR/DNI, confirmed with patient and caregiver on admission Prophylaxis: Lovenox Patient was also evaluated by palliative, Likely discharge back in the next 24 hours Total Time Total Time Spent Total Time Spent (In Minutes): 35 min Discharge Plan Discharge Items Patient Disposition: Transfer [facility] Fac Reason For Visit: SOB, COUGH Discharge Diagnosis: Aspiration PNA Condition on Discharge: Fair Activity: Resume your previous activity Bathing: No limitations Non-emergency contact: Primary Care Provider Call non-emergency contact if: you have any medication questions and your symptoms worsen Follow-up/Referrals: ProJong MD [Primary Care Provider] - Diet: Other - See Diet Comment Diet Texture: Easy to Chew Liquid Consistency: [place] thick Addtl Attending Provider Instructions: Please make appointment to follow up with palliative services Pending Studies at Discharge: No Stand-Alone Forms: My [facility] [employer] Skilled Items Patient informed of condition?: Yes DNR: Yes Discharge Level of Care: Skilled Communicable Disease: No Discharge Prognosis: Stable Lines: None Urinary Catheter: No Medications and DC Order Prescriptions: Continued finasteride 5 mg tablet 5 mg PO HS Qty: 90 RF: 3 metoprolol succinate 50 mg tablet extended release 24 hr 50 mg PO QAM Qty: 90 RF: 3 ipratropium-albuterol 0.5 mg-3 mg(2.5 mg base)/3 mL solution for nebulization 3 ml INHALATION Q4H PRN (Reason: Shortness Of Breath) Qty: 180 RF: 3 cholecalciferol (vitamin D3) [Vitamin D3] 50 mcg (2,000 unit) capsule 50 mcg PO DAILY Qty: 90 RF: 3 magnesium oxide 400 mg (241.3 mg magnesium) tablet 400 mg PO QAM Qty: 90 RF: 3 famotidine 20 mg tablet 20 mg PO BID Qty: 60 RF: 5 ferrous sulfate 325 mg (65 mg iron) tablet 325 mg PO BID Qty: 180 RF: 1 tamsulosin 0.4 mg capsule 0.4 mg PO HS Qty: 90 RF: 1 hydrocodone-acetaminophen 5-325 mg tablet 1 tab PO TID Qty: 90 RF: 0 Asmanex Twisthaler 220 mcg/ actuation (30) aerosol powdr breath activated 220 mcg INHALATION HS Qty: 1 RF: 3 divalproex 250 mg tablet,delayed release (DR/EC) 250 mg PO BID RF: 0 clozapine 100 mg tablet 300 mg PO HS RF: 0 cyanocobalamin (vitamin B-12) 1,000 mcg Tablet 1,000 mcg PO 2XWK RF: 0 aspirin 81 mg tablet,delayed release (DR/EC) 81 mg PO HS RF: 0 magnesium hydroxide [Milk of Magnesia] 400 mg/5 mL Suspension 30 ml PO UD PRN (Reason: Constipation) RF: 0 divalproex 125 mg tablet,delayed release (DR/EC) 125 mg PO BID RF: 0 furosemide 20 mg Tablet 20 mg PO BID RF: 0 acetaminophen 500 mg Capsule 500 mg PO Q6 PRN (Reason: Pain) RF: 0 phenazopyridine [Pyridium] 200 mg tablet 200 mg PO Q8H PRN (Reason: pain) Qty: 10 RF: 0 atorvastatin 40 mg tablet 40 mg PO HS RF: 0 polyethylene glycol 3350 17 gram powder in packet 17 g PO BID PRN (Reason: Constipation) RF: 0 levothyroxine 75 mcg tablet 75 mcg PO QAM RF: 0 sennosides 8.6 mg tablet 17.2 mg PO BID PRN (Reason: Constipation) RF: 0 bisacodyl [Dulcolax (bisacodyl)] 5 mg tablet,delayed release (DR/EC) 5 mg PO DAILY PRN (Reason: constipation) Qty: 30 RF: 0 Discharge Orders: Discharge Order (Routine); Ordered 09/10/21 Ordered By: Eber Boyer Admission Data Admit Date/Time: 09/02/21 18:58 Attending Provider: Eber Boyer Admit Provider: Aly Reaves Primary Care Provider: Jong Weir Other Providers: Kirill Stone Muqueet ; Corinne Solorio Other Interventions: Discharge Summary Assessment (RN) Last Done: 09/10/21 12:45 Coding Level of Care Code D/C DAY MANAGEMENT >30 MINS Diagnoses Pneumonia J18.9 Laterality: unspecified laterality Lung location: unspecified part of lung Pneumonia type: due to unspecified organism Chronic diastolic CHF (congestive heart failure) I50.32 Acute hyponatremia E87.1 Acute and chronic respiratory failure with hypoxia J96.21 Chronic respiratory failure with hypoxia J96.11 Interstitial lung disease J84.9 CKD (chronic kidney disease), stage III N18.3 Edema of both lower extremities R60.0 Paranoid schizophrenia F20.0 CAD in [place] artery I25.10 Hypertension I10 Hypertension type: essential hypertension GERD (gastroesophageal reflux disease) K21.9 Esophagitis presence: esophagitis presence not specified Seizure disorder G40.909
== END 2021-09-10 13:42 | disposition home or self-care (01) | DRG 177 ==
LOC: ED 14:06 → SUATTDRO 18:58 → 2N 18:58

== ENCOUNTER 2021-09-18 03:01 | Inpatient (IN) ==
[2021-09-18] MEDS ORDERED: ALBUT/IPRATROP 3MG/0.5MG NEB 3 ML VIAL NEB STA (03:55)
--- NOTE | 2021-09-18 04:03 | Emergency Department Note ---
Impression & Plan Hypoxia, COVID-19 Admit to the [facility] ED Provider Note NAME: JOSIE DO AGE: 70 SEX: M ARRIVES VIA: Ambulance INFORMANT: Patient ED PROVIDER(S): Constanza Santoyo DO CHIEF COMPLAINT: Hypoxia PLAN: Disposition: Admit to the [facility] Condition: Guarded MEDICAL DECISION MAKING: This is a 70-year-old male patient who presents to the emergency department with shortness of breath. The patient was noted by staff at [facility] to be hypoxic with O2 saturations in the 60s-70s. Patient has a history of asthma. He had been tested for Covid just 2 days ago and it was negative. However here in the emergency department it was positive. Chest x-ray had questionable opacities with the left being greater than the right. He was receiving DuoNeb treatments here in the emergency department which seemed to be helping with the wheezing and he could breathe more easily O2 saturations remained stable on supplemental oxygen. Triage Nursing notes reviewed and agree with them. Additional history obtained from EMS Prior medical records reviewed Vital Signs: reviewed and remarkable for hypotension and tachypnea Differential diagnosis: Asthma exacerbation, CHF, pneumonia, COVID-19, viral pneumonitis ER treatment provided: DuoNeb treatment Hour-long DuoNeb Diagnostics interpreted by me: ECG: Normal sinus rhythm at a rate of [address] segment elevation or signs of ischemia. There is no ectopy. Cardiac Monitoring: Normal sinus rhythm at 94 Laboratory studies: See below Imaging studies: As per my interpretation Portable chest x-ray: Difficult interstitial lung disease with questionable opacities greater on the left than the right HPI: 70/M arrives for evaluation of hypoxia. The patient presents here from [facility]. Staff found the patient to be short of breath and checked his O2 saturation which was between 60 and 70% on his usual 3 L of chronic home O2. The patient had Covid testing 2 days ago which was negative. Patient has a history of asthma ROS: See above HPI for pertinent positives & negatives. A total of 10 systems reviewed and were otherwise negative. PAST MEDICAL HISTORY:See Below PAST SURGICAL HISTORY:See Below FAMILY HISTORY:See Below SOCIAL HISTORY:See Below HOME MEDICATIONS:See list ALLERGIES:See list VITALS:See Below PHYSICAL EXAMINATION: HEENT: Head - normocephalic and atraumatic. Pupils are equal, round, and reactive to light. Extraocular eye muscles are intact, and sclera are anicteric. Nose - moist nasal mucosa without discharge. Mouth - moist buccal mucosa. Oropharynx is nonerythematous and there is no tonsillar exudate or edema noted. Neck: Supple; no JVD, or cervical lymphadenopathy Heart: Regular rate and rhythm. There is a normal S1 and S2 with no murmurs, clicks, or gallops appreciated. Lungs: Diffuse expiratory wheezes with occasional rhonchi Abdomen: Soft, completely nontender, nondistended, with good bowel sounds. There are no palpable pulsatile masses or hepatosplenomegaly. There is no guarding, rigidity, or rebound noted. Extremities: Lower extremity edema Skin: warm and dry with good turgor and no rashes. ED COURSE: Times/Reassessments: [id number]: The patient was evaluated in room C9. A complete history and physical was performed. An order was placed for continuous cardiac monitoring. Patient was in a normal sinus rhythm at a rate of 94. Patient was hypoxic and was on a nonrebreather mask which brought O2 saturations into the 90s. A portable chest x-ray was performed. Twelve-lead EKG was obtained and patient was given a DuoNeb treatment. Covid testing was obtained. Patient's blood pressure seemed to normalize a bit and remained in the mid 100s systolically. Covid testing returned positive. The patient was placed in isolation and the septic work-up was completed. I discussed the case with the [facility] and he will evaluate for further management. Constanza Santoyo DO Past Med/Surg History Medical History (Updated 09/18/21 @ 22:29 by Constanza Santoyo DO) Anemia chronic, baseline hgb 10s per chart review Asthma Avascular necrosis BPH (benign prostatic hyperplasia) CAD in [place] artery [place] [facility] [place] "presumed CAD" based on coronary artery calcifications noted on imaging Cavitary lesion of lung Chronic hypoxemic respiratory failure Chronic kidney disease (CKD), stage III (moderate) Chronic pain Dysphagia Dysphagia Edema GERD (gastroesophageal reflux disease) Hiatal hernia Hypercholesterolemia Hypertension Hypothyroidism Inappropriate ADH syndrome Interstitial lung disease On 2L O2 continuous via [place] custodial current use of clozapine Nontuberculous mycobacterial disease of lung Following with [facility] pulmonary ([place]) Obstructive sleep apnea On 2L O2 continuous via [place] Palliative care encounter Paranoid schizophrenia SBO (small bowel obstruction) Seizure disorder Remote hx several years ago, no seizures since anticonvulsant initiation per [place] [facility] 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 No mention of LVOT obstruction, only mild concentric LVH. Echo was reviewed by cardiology 12/2019, felt no further cardiac workup needed. Weakness Surgical History History of breast surgery Possible History of bronchoscopy History of cardiac cath Remote > no stents History of cataract surgery R/L History of colonoscopy History of cystoscopy Left cystoscopy, ureteronephroscopy, retropyelogram (10/06/20): LMA#[address] [facility] Family History Father Prostate cancer Mother Lung cancer Denies family history of Breast cancer Colorectal cancer Social History Smoking Status: Never smoker Tobacco Type: Cigarettes Age Quit Using Tobacco: 38; Second Hand Exposure: No; Hx Alcohol Use: No Hx Substance Use: No Preferred Language: Swiss Communication Ability: Effective Visual Impairment: No Limitations Hearing Ability: Normal Front Office Spec Required: No Beliefs That Will Affect Care: None marital status: Single Current Living Situation: Other Current Living Situation Comment: [employer] current occupational status: retired How many Children do You have: 0 Feels Safe at Home: Yes Seatbelt Use: always Assistive Devices: Oxygen - Continuous and Wheelchair Allergies Allergies Allergy/AdvReac Type Severity Reaction Status Date / Time diltiazem Allergy Intermediate rash and Verified 09/02/21 16:53 edema fentanyl AdvReac Severe Confusion Verified 09/02/21 16:53 Home Meds Home Medications Medication Instructions Recorded Confirmed acetaminophen 500 mg capsule 500 mg PO Q6 PRN 12/10/20 09/18/21 aspirin 81 mg tablet,delayed 81 mg PO HS 12/10/20 09/18/21 release clozapine 100 mg tablet 300 mg PO HS 12/10/20 09/18/21 cyanocobalamin (vitamin B-12) 1,000 mcg PO 2XWK 12/10/20 09/18/21 1,000 mcg tablet divalproex 125 mg tablet,delayed 125 mg PO BID 12/10/20 09/18/21 release divalproex 250 mg tablet,delayed 250 mg PO BID 12/10/20 09/18/21 release furosemide 20 mg tablet 20 mg PO BID 12/10/20 09/18/21 magnesium hydroxide 400 mg/5 mL 30 ml PO UD PRN 12/10/20 09/18/21 oral suspension (Milk of Magnesia) atorvastatin 40 mg tablet 40 mg PO HS 08/21/21 09/18/21 levothyroxine 75 mcg tablet 75 mcg PO QAM 08/21/21 09/18/21 polyethylene glycol 3350 17 gram 17 g PO BID PRN 08/21/21 09/18/21 oral powder packet sennosides 8.6 mg tablet 17.2 mg PO BID PRN 08/27/21 09/18/21 Previous Rx's Medication Instructions Recorded finasteride 5 mg tablet 5 mg PO HS #90 tab 01/02/21 metoprolol succinate 50 mg 50 mg PO QAM #90 tab 03/27/21 tablet,extended release 24 hr phenazopyridine 200 mg tablet 200 mg PO Q8H PRN #10 tab 04/06/21 (Pyridium) ipratropium 0.5 mg-albuterol 3 mg 3 ml INHALATION Q4H PRN #180 ml 04/17/21 (2.5 mg base)/3 mL nebulization soln bisacodyl 5 mg tablet,delayed 5 mg PO DAILY PRN #30 tab 06/11/21 release (Dulcolax (bisacodyl)) cholecalciferol (vitamin D3) 50 50 mcg PO DAILY #90 cap 06/17/21 mcg (2,000 unit) capsule (Vitamin D3) famotidine 20 mg tablet 20 mg PO BID #60 tab 06/17/21 magnesium oxide 400 mg (241.3 mg 400 mg PO QAM #90 tab 06/17/21 magnesium) tablet ferrous sulfate 325 mg (65 mg 325 mg PO BID #180 tab 06/18/21 iron) tablet tamsulosin 0.4 mg capsule 0.4 mg PO HS #90 cap 07/17/21 hydrocodone 5 mg-acetaminophen 325 1 tab PO TID #90 tab 08/26/21 mg tablet mometasone (Asmanex Twisthaler) 220 mcg INHALATION HS #1 ea 08/26/21 Results & Data (ED) Vital Signs Vital Signs - 24 hr 09/18/21 03:06 09/18/21 03:14 09/18/21 03:18 Temperature 37.1 C Temperature Source Oral Pulse Rate Pulse Rate [Apical] 95 H 95 H Pulse Rate from SpO2 Sensor Respiratory Rate 30 H Respiratory Effort / Characteristics Blood Pressure Blood Pressure [Left Arm] 105/64 Blood Pressure [Right Arm] 79/42 L Blood Pressure Mean Blood Pressure Mean [Left Arm] 77 Blood Pressure Mean [Right Arm] 54 Pulse Oximetry 100 100 100 Oxygen Delivery Method Non-rebreather Non-rebreather Non-rebreather Oxygen Flow Rate 15 15 15 Sepsis Recent Fever Within 48 Hours Sepsis New/Unexplained Change in Mental Status Sepsis Action Taken by Nursing 09/18/21 03:26 09/18/21 03:30 09/18/21 03:35 Temperature Temperature Source Pulse Rate 97 H Pulse Rate [Apical] Pulse Rate from SpO2 Sensor 97 H Respiratory Rate 30 H Respiratory Effort / Characteristics Short of Breath SOB on Exertion Blood Pressure Blood Pressure [Left Arm] 101/54 L Blood Pressure [Right Arm] Blood Pressure Mean Blood Pressure Mean [Left Arm] 69 Blood Pressure Mean [Right Arm] Pulse Oximetry 100 Oxygen Delivery Method Non-rebreather Oxygen Flow Rate 15 Sepsis Recent Fever Within 48 Hours No Sepsis New/Unexplained Change in Mental Status No Sepsis Action Taken by Nursing No Action Required 09/18/21 04:00 09/18/21 04:17 09/18/21 04:22 Temperature Temperature Source Pulse Rate 93 H Pulse Rate [Apical] 93 H Pulse Rate from SpO2 Sensor 93 H Respiratory Rate 20 24 Respiratory Effort / Characteristics Spontaneous Short of Breath Blood Pressure 110/62 Blood Pressure [Left Arm] Blood Pressure [Right Arm] Blood Pressure Mean 78 Blood Pressure Mean [Left Arm] Blood Pressure Mean [Right Arm] Pulse Oximetry 100 100 100 Oxygen Delivery Method Oxymask Oxymask Oxygen Flow Rate 13 13 Sepsis Recent Fever Within 48 Hours Sepsis New/Unexplained Change in Mental Status Sepsis Action Taken by Nursing 09/18/21 04:38 09/18/21 04:44 09/18/21 05:21 Temperature Temperature Source Pulse Rate Pulse Rate [Apical] 93 H 92 H Pulse Rate from SpO2 Sensor Respiratory Rate 26 H 26 H 20 Respiratory Effort / Characteristics Spontaneous Blood Pressure Blood Pressure [Left Arm] 115/49 L Blood Pressure [Right Arm] Blood Pressure Mean Blood Pressure Mean [Left Arm] 71 Blood Pressure Mean [Right Arm] Pulse Oximetry 100 100 97 Oxygen Delivery Method Oxymask Oxymask Oxymask Oxygen Flow Rate 10 6 4 Sepsis Recent Fever Within 48 Hours Sepsis New/Unexplained Change in Mental Status Sepsis Action Taken by Nursing Laboratory Data Result diagrams: 09/18/21 03:45 09/18/21 03:45 Lab Results 09/18/21 09/18/21 09/18/21 Range/Units 03:45 03:45 03:45 WBC 11.34 H (4.8-10.8) K/uL RBC 3.04 L (4.7-6.1) M/uL Hgb 8.7 L (14.0-18.0) g/dL Hct 29.7 L (42-52) % MCV 97.7 (80-100) fL MCH 28.6 (25-34) pg MCHC 29.3 L (32-36) g/dL RDW Std Deviation 52.4 H (36.4-46.3) fL RDW Coeff of [place] 14.6 H (11.5-14.5) % Plt Count 154 (130-400) K/uL MPV 10.0 (7.4-10.4) fL Immature Gran % (Auto) 9.5 % Neut % (Auto) 55.9 % Lymph % (Auto) 20.5 % [place] % (Auto) 12.4 % Eos % (Auto) 1.5 % Baso % (Auto) 0.2 % Neut # (Auto) 6.34 (1.4-6.5) K/uL Lymph # (Auto) 2.32 (1.2-3.4) K/uL [place] # (Auto) 1.41 H (0.11-0.59) K/uL Eos # (Auto) 0.17 (0-0.5) K/uL Baso # (Auto) 0.02 (0-0.2) K/uL Immature Gran # (Auto) 1.08 H (0.00-0.02) K/uL RBC Morphology Unremarkable Sodium 135 L (136-145) mmol/L Potassium 4.9 (3.5-5.1) mmol/L Chloride 102 (98-107) mmol/L Carbon Dioxide 30 (21-32) mmol/L Anion Gap 3.0 (3-11) BUN 38 H (7-18) mg/dl Creatinine 1.18 (0.6-1.4) mg/dl Est Cr Clr Drug Dosing 63.8 ml/min Est GFR ( Amer) 73.1 ml/min Est GFR (Non-Af Amer) 63.0 ml/min BUN/Creatinine Ratio 32.6 H (10-20) Glucose 91 (70-99) mg/dl Calcium 8.5 (8.5-10.1) mg/dl Total Bilirubin 0.4 (0.2-1) mg/dl AST 23 (15-37) U/L ALT 14 (12-78) U/L Alkaline Phosphatase 82 (45-117) U/L Troponin I < 0.015 (0-0.045) ng/ml NT-Pro-B Natriuret Pep 7203 H (0-900) pg/ml Total Protein 6.9 (6.4-8.2) gm/dl Albumin 2.1 L (3.4-5.0) gm/dl Globulin 4.8 H (2.5-4.0) gm/dl Albumin/Globulin Ratio 0.4 L (0.9-2) Urine Color Urine Appearance (Clear) Urine pH (4.5-7.5) Ur Specific [place] (1.000-1.030) Urine Protein (Negative) Urine Glucose (UA) (Negative) Urine Ketones (Negative) Urine Blood (Negative) Urine Nitrite (Negative) Urine Bilirubin (Negative) Urine Urobilinogen (Negative) Ur Leukocyte Esterase (Negative) SARS-CoV-2, RNA, NAAT (NEGATIVE) 09/18/21 09/18/21 Range/Units 04:00 04:45 WBC (4.8-10.8) K/uL RBC (4.7-6.1) M/uL Hgb (14.0-18.0) g/dL Hct (42-52) % MCV (80-100) fL MCH (25-34) pg MCHC (32-36) g/dL RDW Std Deviation (36.4-46.3) fL RDW Coeff of [place] (11.5-14.5) % Plt Count (130-400) K/uL MPV (7.4-10.4) fL Immature Gran % (Auto) % Neut % (Auto) % Lymph % (Auto) % [place] % (Auto) % Eos % (Auto) % Baso % (Auto) % Neut # (Auto) (1.4-6.5) K/uL Lymph # (Auto) (1.2-3.4) K/uL [place] # (Auto) (0.11-0.59) K/uL Eos # (Auto) (0-0.5) K/uL Baso # (Auto) (0-0.2) K/uL Immature Gran # (Auto) (0.00-0.02) K/uL RBC Morphology Sodium (136-145) mmol/L Potassium (3.5-5.1) mmol/L Chloride (98-107) mmol/L Carbon Dioxide (21-32) mmol/L Anion Gap (3-11) BUN (7-18) mg/dl Creatinine (0.6-1.4) mg/dl Est Cr Clr Drug Dosing ml/min Est GFR ( Amer) ml/min Est GFR (Non-Af Amer) ml/min BUN/Creatinine Ratio (10-20) Glucose (70-99) mg/dl Calcium (8.5-10.1) mg/dl Total Bilirubin (0.2-1) mg/dl AST (15-37) U/L ALT (12-78) U/L Alkaline Phosphatase (45-117) U/L Troponin I (0-0.045) ng/ml NT-Pro-B Natriuret Pep (0-900) pg/ml Total Protein (6.4-8.2) gm/dl Albumin (3.4-5.0) gm/dl Globulin (2.5-4.0) gm/dl Albumin/Globulin Ratio (0.9-2) Urine Color Yellow Urine Appearance Clear (Clear) Urine pH 5.0 (4.5-7.5) Ur Specific [place] 1.016 (1.000-1.030) Urine Protein Negative (Negative) Urine Glucose (UA) Negative (Negative) Urine Ketones Negative (Negative) Urine Blood Negative (Negative) Urine Nitrite Negative (Negative) Urine Bilirubin Negative (Negative) Urine Urobilinogen Negative (Negative) Ur Leukocyte Esterase Negative (Negative) SARS-CoV-2, RNA, NAAT POSITIVE A* (NEGATIVE) Administered Medications Albuterol (Albut/Ipratrop 3mg/0.5mg Neb 3 Ml Vial) 3 ml NEB QIDR GUERO Stop: 10/18/21 06:59 Last Admin: 09/18/21 19:48 Dose: 3 ml Documented by: [id number] Admin: 09/18/21 14:45 Dose: 3 ml Documented by: [id number] Admin: 09/18/21 10:08 Dose: 3 ml Documented by: [id number] Admin: 09/18/21 07:34 Dose: 3 ml Documented by: [id number] Aspirin (Aspirin 81 Mg Ectab) 81 mg PO HS GUERO Stop: 10/18/21 20:59 Last Admin: 09/18/21 20:24 Dose: Not Given Documented by: [id number] Budesonide (Budesonide 0.5 Mg/2 Ml Vial (Pulmicort)) 0.5 mg NEB BIDR GUERO Stop: 10/18/21 18:59 Last Admin: 09/18/21 19:48 Dose: 0.5 mg Documented by: [id number] Clozapine (Clozapine 100 Mg Tab) 300 mg PO HS GUERO Stop: 10/18/21 20:59 Last Admin: 09/18/21 20:24 Dose: Not Given Documented by: [id number] Divalproex Sodium (Divalproex Delay Release 250 Mg Tabec) 250 mg PO BID GUERO Stop: 10/18/21 08:59 Last Admin: 09/18/21 20:25 Dose: Not Given Documented by: [id number] Admin: 09/18/21 09:33 Dose: Not Given Documented by: [id number] Divalproex Sodium (Divalproex Delay Release 125 Mg Tabec) 125 mg PO BID GUERO Stop: 10/18/21 08:59 Last Admin: 09/18/21 20:25 Dose: Not Given Documented by: [id number] Admin: 09/18/21 09:34 Dose: Not Given Documented by: [id number] Enoxaparin Sodium (Enoxaparin Inj 40 Mg/0.4 Ml Syr) 40 mg SQ Q12H GUERO Stop: 10/18/21 07:59 Last Admin: 09/18/21 20:23 Dose: 40 mg Documented by: [id number] Admin: 09/18/21 08:42 Dose: 40 mg Documented by: [id number] Finasteride (Finasteride 5 Mg Tab) 5 mg PO HS GUERO Stop: 10/18/21 20:59 Last Admin: 09/18/21 20:25 Dose: Not Given Documented by: [id number] Fluticasone Furoate (Fluticasone Furoate 100mcg 14 Puffs/Inhaler) 1 puffs INH HS GUERO Stop: 10/18/21 20:59 Last Admin: 09/18/21 20:27 Dose: 1 puffs Documented by: [id number] Formoterol Fumarate (Formoterol 20 Mcg/2 Ml Vial) 20 mcg NEB BID GUERO Stop: 10/18/21 20:59 Last Admin: 09/18/21 19:50 Dose: Not Given Documented by: [id number] Furosemide (Furosemide 20 Mg Tab) 20 mg PO BID@0800,1400 [facility] Stop: 10/18/21 07:59 Last Admin: 09/18/21 14:52 Dose: Not Given Documented by: [id number] Admin: 09/18/21 09:33 Dose: Not Given Documented by: [id number] Guaifenesin (Guaifenesin 600 Mg Tabcr) 600 mg PO Q12 [facility] Stop: 10/18/21 08:59 Last Admin: 09/18/21 09:34 Dose: Not Given Documented by: [id number] Dexamethasone 6 mg/ Syringe 1.5 mls @ 1 mls/min IV DAILY@0900 [facility] Stop: 10/18/21 08:59 Last Admin: 09/18/21 11:03 Dose: 1 mls/min Documented by: [id number] Ampicillin Sodium/Sulbactam Sodium 3,000 mg/ Sodium Chloride 108 mls @ 200 mls/hr IV Q6H [facility]; Protocol Stop: 09/25/21 07:29 Last Infusion: 09/18/21 21:21 Dose: 0 mls/hr Documented by: [id number] Admin: 09/18/21 20:21 Dose: 108 mls/hr Documented by: [id number] Infusion: 09/18/21 16:21 Dose: 108 mls/hr Documented by: [id number] Admin: 09/18/21 15:21 Dose: 108 mls/hr Documented by: [id number] Infusion: 09/18/21 08:45 Dose: 0 mls/hr Documented by: [id number] Admin: 09/18/21 08:07 Dose: 200 mls/hr Documented by: [id number] Famotidine 20 mg/ Syringe 5 mls @ 2.5 mls/min IV BID [facility] Stop: 10/18/21 20:59 Last Admin: 09/18/21 21:14 Dose: 2.5 mls/min Documented by: [id number] Levothyroxine Sodium (Levothyroxine Sodium 75 Mcg Tablet) 75 mcg PO DAILY@0700 [facility] Stop: 10/18/21 06:59 Last Admin: 09/18/21 09:33 Dose: Not Given Documented by: [id number] Metoprolol Succinate (Metoprolol Succ 50mg Ext Rel Tab) 50 mg PO QAM GUERO Stop: 10/18/21 08:59 Last Admin: 09/18/21 09:34 Dose: Not Given Documented by: [id number] Sodium Chloride (Sodium Chloride 0.9% 10ml Flush) 30 ml IV Q24H [facility]ERO Stop: 09/22/21 10:01 Last Admin: 09/18/21 11:02 Dose: 30 ml Documented by: [id number] Sodium Chloride (Sodium Chloride 0.9% 10ml Flush) 30 ml IV DAILY@1300 [facility] Stop: 09/22/21 13:01 Last Admin: 09/18/21 11:02 Dose: 30 ml Documented by: [id number] Tamsulosin HCl (Tamsulosin Hcl 0.4 Mg Cap) 0.4 mg PO HS GUERO Stop: 10/18/21 20:59 Last Admin: 09/18/21 20:25 Dose: Not Given Documented by: [id number] Discontinued Medications Albuterol (Albut/Ipratrop 3mg/0.5mg Neb 3 Ml Vial) 3 ml NEB NOW STA Stop: 09/18/21 03:56 Last Admin: 09/18/21 04:21 Dose: 3 ml Documented by: [id number] Albuterol (Albut/Ipratrop 3mg/0.5mg Neb 3 Ml Vial) 12 ml NEB ONE ONE Stop: 09/18/21 04:57 Last Admin: 09/18/21 05:20 Dose: 12 ml Documented by: [id number] Famotidine (Famotidine 20 Mg Tab) 20 mg PO BID [facility] Stop: 10/18/21 08:59 Last Admin: 09/18/21 09:34 Dose: Not Given Documented by: [id number] Furosemide (Furosemide 40 Mg/4 Ml Vial) 40 mg IV NOW STA Stop: 09/18/21 09:54 Last Admin: 09/18/21 11:02 Dose: 40 mg Documented by: [id number] Remdesivir 200 mg/ Sodium (Chloride) 250 mls @ 125 mls/hr IV ONE STA; Protocol Stop: 09/18/21 07:52 Last Infusion: 09/18/21 10:49 Dose: 0 mls/hr Documented by: [id number] Admin: 09/18/21 08:42 Dose: 125 mls/hr Documented by: [id number] Sodium Chloride (Nss 1000ml) 1,000 mls @ 80 mls/hr IV .[id number] GUERO Stop: 09/18/21 19:29 Last Infusion: 09/18/21 10:51 Dose: 0 mls/hr Documented by: [id number] Infusion: 09/18/21 10:49 Dose: 0 mls/hr Documented by: [id number] Infusion: 09/18/21 09:58 Dose: 0 mls/hr Documented by: [id number] Infusion: 09/18/21 09:32 Dose: 0 mls/hr Documented by: [id number] Admin: 09/18/21 08:06 Dose: 80 mls/hr Documented by: [id number] Discharge Plan Visit Data Chief Complaint: Shortness of Breath/Dyspnea Stated Complaint: SOB ED Provider: Constanza Santoyo Discharge Problem: Hypoxia, COVID-19 Discharge Instructions Interventions: ED Discharge Assessment Last Done: 09/18/21 07:02
[2021-09-18 04:15] LABS: Hematocrit (blood only) 29.7 % (42-52); Hemoglobin 8.7 g/dL (14.0-18.0); Mean Corpuscular Hemoglobin 28.6 pg (25-34); Mean Corpuscular Hgb Conc 29.3 g/dL (32-36); Mean Corpuscular Volume 97.7 fL (80-100); Platelet Count 154 K/uL (130-400); RDW Coefficient of Variation 14.6 % (11.5-14.5); RDW Standard Deviation 52.4 fL (36.4-46.3); Red Blood Count 3.04 M/uL (4.7-6.1); White Blood Count 11.34 K/uL (4.8-10.8)
[2021-09-18 04:30] LABS: Appearance Urine Clear (Clear); Bilirubin Urine Negative (Negative); Blood Urine Negative (Negative); Color Urine Yellow; Glucose Urine UA Negative (Negative); Ketones Urine Negative (Negative); Leukocyte Esterase Urine Negative (Negative); Nitrite Urine Negative (Negative); Protein Urine Negative (Negative); Specific Gravity Urine 1.016 (1.000-1.030); Urobilinogen Urine Negative (Negative)
[2021-09-18 04:44] LABS: Albumin Level 2.1 gm/dl (3.4-5.0); BUN Creatinine Ratio 32.6 (10-20); Calcium 8.5 mg/dl (8.5-10.1); Creatinine Clr Calc Pharmacy 63.8 ml/min; Est GFR (African American) 73.1 ml/min; Potassium 4.9 mmol/L (3.5-5.1)
[2021-09-18 04:46] LABS: Albumin Globulin Ratio 0.4 (0.9-2); Bilirubin,Total 0.4 mg/dl (0.2-1); Globulin 4.8 gm/dl (2.5-4.0); Total Protein 6.9 gm/dl (6.4-8.2)
[2021-09-18] MEDS ORDERED: ALBUT/IPRATROP 3MG/0.5MG NEB 3 ML VIAL NEB ONE (04:56)
[2021-09-18 05:28] LABS: Basophils # (auto) 0.02 K/uL (0-0.2); Basophils % (auto) 0.2 %; Eosinophils # (auto) 0.17 K/uL (0-0.5); Eosinophils % (auto) 1.5 %; Immature Granulocytes # (auto) 1.08 K/uL (0.00-0.02); Immature Granulocytes % (auto) 9.5 %; Lymphocytes # (auto) 2.32 K/uL (1.2-3.4); Lymphocytes % (auto) 20.5 %; Monocytes # (auto) 1.41 K/uL (0.11-0.59); Monocytes % (auto) 12.4 %; Neutrophils # (auto) 6.34 K/uL (1.4-6.5); Neutrophils % (auto) 55.9 %; RBC Morphology Unremarkable
[2021-09-18] MEDS ORDERED: REMDESIVIR 200 MG in SODIUM CHLORIDE 0.9% 210 ML IV STA (05:53)
--- NOTE | 2021-09-18 05:56 | History & Physical Report ---
Date of Service September 18, 2021 Assessment & Plan (1) Dysphagia: Plan: 70-year-old male coming from [facility] [place] and history of prior Mycobacterium avium infection, chronic hypoxic respiratory failure in setting of interstitial lung disease on baseline 2 L nasal cannula, anemia, seizure disorder, chronic HFpEF, hypothyroidism, stage III CKD, history of nephrolithiasis, hypertension, GERD, CAD, recent hospitalization for aspiration pneumonia who presented to [facility] after staff at [facility] [place] found him saturating only 60-70% on his normal O2 requirement. COVID19 Pneumonia in the setting of Chronic Hypoxic Respiratory Failure and recent aspiration pneumonia - COVID19 positive in ER - CXR showing diffuse BL lung changes consistent with COVID19 Pneumonia - WBC elevation, trend CRP - possible underlying re-aspiration pneumonia; speech evaluation last admission found aspirating events with most foods and liquids - received duonebs x2 in ER. - remdesivir, decadron, o2 support as needed - abg pending - MRSA Nares and Influenza tests pending - duonebs, chest pt, mucinex, for pulmonary toilet - consider pulmonology consult if patient is candidate for monoclonal antibody therapy Palliative Care Discussion - per discharge summary, was to have POLST filled out with PCP, but no record of this being done in chart - discussed situation with legal guardian Sacha on the phone this morning during admission as [facility] had not told them about Mahesh being sent to the hospital-- family has an aim of comfort for Mahesh but wants to give him a shot at treatment with IV remdesivir, dexamethasone etc. - discussed that given his pulmonary history, recent aspiration pneumonia, and current respiratory distress, prognosis is poor, and recovery would likely be extensive - confirmed patient is DNR/DNI - re-consulted palliative care, appreciate assistance with ongoing discussions of goals of care; suggested to guardian a family meeting with palliative care and attending provider would help to keep everyone on the same page H/O HFpEF - echo last admission 09/03/21 poor study showing 65-70% Left EF echo on 07/2019 demonstrating mild cLVH, severe mitral annular calcification, LVEF 65 to 70% does not appear to be in exacerbation at this time, - bnp 7000s, less than last admission Aspiration pneumonia as diagnosed last admission - had received a few days of IV antibiotics and then switched to PO antibiotics at patient's request to not be on IV treatment - high risk for re-aspiration; went home with knowledge and plan of permissive aspiration with food and liquids - unasyn for coverage Normocytic anemia Hemoglobin 8.7, down from 10.3 9 days ago, no obvious source of blood loss - hemoccult stools - daily CBC Interstitial Lung Disease On record review, patient has previously followed with Dr. Wild of [facility] Continue Asmanex, duo nebs scheduled as above Constipation Patient with history of functional small bowel obstruction, no previous abdominal surgeries No evidence of small bowel obstruction or ileus on CT abdomen pelvis Scheduled MiraLAX and senna. Sleep apnea May use home CPAP Stage III CKD Baseline creatinine approximately 1.2 --seems to be at baseline Continue to monitor Hypothyroidism Continue levothyroxine CAD Continue home ASA, atorvastatin GERD Continue famotidine BPH continue home Flomax Seizure disorder No acute needs, continue Depakote Code: DNR/DNI, confirmed with caregiver Diet: NPO pending re-confirmation of permissive aspiration with family. maintenance NS @ 80ml/hr DVT Prophylaxis: 40 mg lovenox BID Dispo: MS/telemetry (2) intermediate current use of clozapine: (3) Acute hyponatremia: (4) NOLA (obstructive sleep apnea): (5) Chronic respiratory failure with hypoxia: (6) Interstitial lung disease: (7) Paranoid schizophrenia: (8) CAD in [place] artery: (9) Seizure disorder: (10) GERD (gastroesophageal reflux disease): (11) Hypertension: (12) COVID-19: History of Present Illness Primary Care Provider: Jong Weir MD Patient is a 70-year-old male with past medical history of recent aspiration pneumonia, cavitary lesions of the lung, chronic hypoxemic respiratory failure, CKD stage III, dysphagia, interstitial lung disease on 3 L nasal cannula, NOLA, seizure disorder who was recently discharged from [facility] on 1112 after treatment of an aspiration pneumonia. He was discharged back to the [facility] [place] where he resides on an oral regimen of antibiotics as the patient did not want to be on IV antibiotics. Speech therapy had evaluated him during his hospitalization and noted that he was aspirating on most diets and would essentially have permissive aspiration. He presented to the emergency department early this morning from [facility] [place] after workers there found him to be hypoxic to the 60 and 70% while on his baseline nasal cannula. EMS was called he was transferred to the emergency department. The emergency department he tested positive for COVID-19. On examination he is rather somnolent but arousable. He states that he started feeling ill a couple days ago. He states that he feels about as bad as he did on day of discharge from the hospital a week ago. States that his stomach is also been hurting last couple of days. He denies any nausea or vomiting. He is coughing profusely in the room. Allergies Allergy/AdvReac Type Severity Reaction Status Date / Time diltiazem Allergy Intermediate rash and Verified 09/02/21 16:53 edema fentanyl AdvReac Severe Confusion Verified 09/02/21 16:53 Home Medications Medication Instructions Recorded Confirmed Type acetaminophen 500 mg capsule 500 mg PO Q6 PRN 12/10/20 09/18/21 History aspirin 81 mg tablet,delayed 81 mg PO HS 12/10/20 09/18/21 History release clozapine 100 mg tablet 300 mg PO HS 12/10/20 09/18/21 History cyanocobalamin (vitamin B-12) 1,000 mcg PO 2XWK 12/10/20 09/18/21 History 1,000 mcg tablet divalproex 125 mg tablet,delayed 125 mg PO BID 12/10/20 09/18/21 History release divalproex 250 mg tablet,delayed 250 mg PO BID 12/10/20 09/18/21 History release furosemide 20 mg tablet 20 mg PO BID 12/10/20 09/18/21 History magnesium hydroxide 400 mg/5 mL 30 ml PO UD PRN 12/10/20 09/18/21 History oral suspension (Milk of Magnesia) finasteride 5 mg tablet 5 mg PO HS #90 tab 01/02/21 09/18/21 Rx metoprolol succinate 50 mg 50 mg PO QAM #90 tab 03/27/21 09/18/21 Rx tablet,extended release 24 hr phenazopyridine 200 mg tablet 200 mg PO Q8H PRN #10 tab 04/06/21 09/18/21 Rx (Pyridium) ipratropium 0.5 mg-albuterol 3 mg 3 ml INHALATION Q4H PRN #180 ml 04/17/21 09/18/21 Rx (2.5 mg base)/3 mL nebulization soln bisacodyl 5 mg tablet,delayed 5 mg PO DAILY PRN #30 tab 06/11/21 09/18/21 Rx release (Dulcolax (bisacodyl)) cholecalciferol (vitamin D3) 50 50 mcg PO DAILY #90 cap 06/17/21 09/18/21 Rx mcg (2,000 unit) capsule (Vitamin D3) famotidine 20 mg tablet 20 mg PO BID #60 tab 06/17/21 09/18/21 Rx magnesium oxide 400 mg (241.3 mg 400 mg PO QAM #90 tab 06/17/21 09/18/21 Rx magnesium) tablet ferrous sulfate 325 mg (65 mg 325 mg PO BID #180 tab 06/18/21 09/18/21 Rx iron) tablet tamsulosin 0.4 mg capsule 0.4 mg PO HS #90 cap 07/17/21 09/18/21 Rx atorvastatin 40 mg tablet 40 mg PO HS 08/21/21 09/18/21 History levothyroxine 75 mcg tablet 75 mcg PO QAM 08/21/21 09/18/21 History polyethylene glycol 3350 17 gram 17 g PO BID PRN 08/21/21 09/18/21 History oral powder packet hydrocodone 5 mg-acetaminophen 325 1 tab PO TID #90 tab 08/26/21 09/18/21 Rx mg tablet mometasone (Asmanex Tw[place]) 220 mcg INHALATION HS #1 ea 08/26/21 09/18/21 Rx sennosides 8.6 mg tablet 17.2 mg PO BID PRN 08/27/21 09/18/21 History Past Med/Surg History Medical History (Updated 09/18/21 @ 07:23 by Ivelisse Morales MD) Anemia chronic, baseline hgb 10s per chart review Asthma Avascular necrosis BPH (benign prostatic hyperplasia) CAD in [place] artery Per [facility] cardio, "presumed CAD" based on coronary artery calcifications noted on imaging Cavitary lesion of lung Chronic hypoxemic respiratory failure Chronic kidney disease (CKD), stage III (moderate) Chronic pain Dysphagia Dysphagia Edema GERD (gastroesophageal reflux disease) Hiatal hernia Hypercholesterolemia Hypertension Hypothyroidism Inappropriate ADH syndrome Interstitial lung disease On 2L O2 continuous via [place] terminal supervisor current use of clozapine Nontuberculous mycobacterial disease of lung Following with [facility] pulmonary ([place]) Obstructive sleep apnea On 2L O2 continuous via [place] Palliative care encounter Paranoid schizophrenia SBO (small bowel obstruction) Seizure disorder Remote hx several years ago, no seizures since anticonvulsant initiation per [facility] Maier aid 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 No mention of LVOT obstruction, only mild concentric LVH. Echo was reviewed by cardiology 12/2019, felt no further cardiac workup needed. Weakness Surgical History History of breast surgery Possible History of bronchoscopy History of cardiac cath Remote > no stents History of cataract surgery R/L History of colonoscopy History of cystoscopy Left cystoscopy, ureteronephroscopy, retropyelogram (10/06/20): LMA#5 at [facility] Family History Father Prostate cancer Mother Lung cancer Denies family history of Breast cancer Colorectal cancer Social History Smoking Status: Never smoker Tobacco Type: Cigarettes Age Quit Using Tobacco: 38; Second Hand Exposure: No; Hx Alcohol Use: No Hx Substance Use: No Preferred Language: Slovenian Communication Ability: Effective Visual Impairment: No Limitations Hearing Ability: Normal Pan Puller Required: No Beliefs That Will Affect Care: None marital status: Single Current Living Situation: Other Current Living Situation Comment: Tyler maier current occupational status: retired How many Children do You have: 0 Feels Safe at Home: Yes Seatbelt Use: always Assistive Devices: Oxygen - Continuous and Wheelchair Review of Systems Constitutional: + weakness; no fever, no chills, no body aches and no fatigue Respiratory: + cough, + chest congestion, + dyspnea, + pain on inspiration and + pain with cough Cardiovascular: + dyspnea; no chest pain and no edema Gastrointestinal: + abdominal pain; no nausea, no vomiting, no constipation and no diarrhea/loose stools Neurologic: no tingling, no numbness, no dizziness and no confusion Physical Exam Physical Exam: Constitutional: ill appearing, distressed appearing, lethargic Eyes: EOMI, pupils equal and reactive bilaterally, no scleral icterus Cardiac: tachycardic, regular rhythm, no murmurs, gallops or rubs. Normal S1, S2 Pulm: inspiratory and expiratory wheezes throughout all lung maier, coughing, working hard to breathe on 6L NC, tachypneic Abd: soft, TTP of left abdomen, nondistended, normal bowel sounds, no rebound or guarding Extremities: 1+ peripheral pulses, no edema Neuro: no focal deficits, moving all 4 limbs, A&Ox3 Results & Data Results & Data ([facility]) Vital Signs (Past 12 Hours) Vital Signs Temp Pulse Pulse Resp BP BP BP 09/18/21 05:21 92 H 20 09/18/21 04:44 93 H 26 H 115/49 L 09/18/21 04:38 26 H 09/18/21 04:22 93 H 24 09/18/21 04:17 09/18/21 04:00 93 H 20 110/62 09/18/21 03:30 97 H 30 H 09/18/21 03:26 101/54 L 09/18/21 03:18 95 H 105/64 09/18/21 03:14 09/18/21 03:06 37.1 C 95 H 30 H 79/42 L Pulse Ox 09/18/21 05:21 97 09/18/21 04:44 100 09/18/21 04:38 100 09/18/21 04:22 100 09/18/21 04:17 100 09/18/21 04:00 100 09/18/21 03:30 100 09/18/21 03:26 09/18/21 03:18 100 09/18/21 03:14 100 09/18/21 03:06 100 Supervising Physician Co-Signing Physician Notes Attending addendum: I have physically seen this patient, have supervised the medical residents activities, and agree with the H&P unless as otherwise noted. Assessment and Plan: Acute on chronic respiratory failure with hypoxia/COVID-19 pneumonia/aspiration pneumonia- Discussion with POA regarding extent of treatment is permissible Dexamethasone 6 mg IV every morning Remdesivir IV per protocol Vancomycin IV and Zosyn IV per pharmacokinetic monitoring Duonebs every 4 hours while awake and every 2 hours when necessary. Consult pulmonology Palliative care- We will reconsult palliative care to help POA and family determine course of treatment the patient and they would want Patient is DNR/DNI Remaining orders and notations as noted Resident Activity Tracking Resident Involvement: Resident Care Provided Care Provided: Adult Hospital Medicine (1) GERD (gastroesophageal reflux disease) Esophagitis presence: esophagitis presence not specified Qualified Code(s): K21.9 - Gastro-esophageal reflux disease without esophagitis (2) Hypertension Hypertension type: essential hypertension Qualified Code(s): I10 - Essential (primary) hypertension
[2021-09-18 06:34] LABS: NT Pro B Type Natriuretic Pept 7203 pg/ml (0-900); Troponin I < 0.015 ng/ml (0-0.045)
[2021-09-18] MEDS ORDERED: ACETAMINOPHEN 1000 MG/100 ML IV IV PRN (06:48)
[2021-09-18] MEDS ORDERED: ONDANSETRON INJ 2 MG/ML 2 ML VIAL IV PRN (06:48)
[2021-09-18] MEDS ORDERED: SODIUM CHLORIDE 0.9% 1000ML 1,000 ML IV SCH (07:00)
[2021-09-18 07:04] LABS: Influenza A virus by PCR Negative (Negative); Influenza B virus by PCR Negative (Negative)
[2021-09-18] MEDS: ALBUT/IPRATROP 3MG/0.5MG NEB 3 ML VIAL NEB SCH ×4 (07:34→19:48)
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
[2021-09-18] MEDS: AMPICILLIN/SULBACTAM SOD 3,000 MG in 0.9 % SODIUM CHLORIDE 100 ML IV SCH ×3 (08:07→20:21)
[2021-09-18 08:34] LABS: Base Excess ABG 3.5 mEq/L (-9-1.8); HCO3 ABG 30 mmol/L (19-24); PCO2 ABG 57 mmHg (35-46); PO2 ABG 73 mmHg (80-95); pH ABG 7.34 (7.35-7.45)
[2021-09-18 08:36] LABS: Allen Test Pos (Pos)
[2021-09-18] MEDS: ENOXAPARIN INJ 40 MG/0.4 ML SYR SQ SCH ×2 (08:42→20:23)
[2021-09-18] MEDS ORDERED: METOPROLOL SUCC 50MG EXT REL TAB PO SCH (09:00)
[2021-09-18] MEDS ORDERED: guaiFENesin 600 MG TABCR PO SCH (09:00)
[2021-09-18] MEDS ORDERED: FAMOTIDINE 20 MG TAB PO SCH (09:00)
[2021-09-18] MEDS: FUROSEMIDE 20 MG TAB PO SCH ×2 (09:33→14:52)
[2021-09-18] MEDS: DIVALPROEX DELAY RELEASE 250 MG TABEC PO SCH ×2 (09:33→20:25)
[2021-09-18] MEDS: LEVOTHYROXINE SODIUM 75 MCG TABLET PO SCH (09:33)
[2021-09-18] MEDS: DIVALPROEX DELAY RELEASE 125 MG TABEC PO SCH ×2 (09:34→20:25)
[2021-09-18] MEDS ORDERED: FUROSEMIDE 40 MG/4 ML VIAL IV STA (09:53)
[2021-09-18] MEDS: SODIUM CHLORIDE 0.9% 10ML FLUSH IV SCH ×2 (11:02)
[2021-09-18] MEDS: dexAMETHasone 6 MG in SYRINGE 0 ML IV SCH (11:03)
[2021-09-18 12:23] LABS: Base Excess ABG 3.4 mEq/L (-9-1.8); HCO3 ABG 30 mmol/L (19-24); Oxygen Saturation ABG 98.6 % (90-95); PCO2 ABG 57 mmHg (35-46); PO2 ABG 130 mmHg (80-95); pH ABG 7.34 (7.35-7.45)
--- NOTE | 2021-09-18 14:56 | Communication Note ---
Date of Service: September 18, 2021 Mr. Pulido is a 70-year-old white male with an underlying past medical history of intellectual disabilities, chronic hypoxic respiratory failure (wears 2 L at baseline), NOLA (requires CPAP), CHF, CKD, HTN, anemia, Mycobacterium Avium (declined treatment) and dysphagia resulting in aspiration pneumonia. Was just hospitalized 09/02 through 09/10 with aspiration pneumonia. At that time he had a modified barium swallow showing laryngeal penetration and was seen by speech therapy who recommended a pured diet with nectar thick liquids. Was seen by palliative care to outline goals of care. Patient is a DNR/DNI. In reviewing prior documentation, palliative had a lengthy discussion with patient and caregivers regarding importance of food and this being a big quality of his life and they requested permissive aspiration. Patient was discharged and unfortunately, exposed to Covid at [employer] [place] (where he resides). On Tuesday (following the exposure, he had a Covid test that was negative. Given this exposure, he was moved to isolation and recommendations per his PCP were to retest him in 5 days if he remained asymptomatic and if negative, he can be removed from isolation. Unfortunately, he tested positive but had no significant symptoms to speak of. In the overnight hours last night, patient was found to be hypoxic (70s) while wearing his CPAP. He was brought to the emergency department where he was found to have progressive interstitial airspace disease consistent with pulmonary edema versus pneumonitis. His lab data was otherwise unremarkable other than an elevated BNP of 7203. His Covid test was positive. His blood gas did show mild acute hypercapnia (7.3 4/57/73). Is 8.94. His ESR is >90. CRP is 8.94. Patient was marginally hypotensive upon arrival (81/61) and was hydrated with NSS. Current BP is 107/69. Pulse ox is averaging 86 to 93% on 2.5 L of supplemental oxygen. 107/69. 92. 24. 37.1 F. 95% on 2.5 L. General: Patient obtunded. He is excessively somnolent and very difficult to arouse. Does not open his eyes for me. Speech is very garbled due to excessive somnolence HEENT: Head is AT/NC buccal mucosa is moist and pink Neck: Given size, difficult to assess for JVD but does have a positive hepatojugular reflex Cardiac: RRR but very distant Lungs: Breathing comfortably on supplemental oxygen. Coarse or rhonchi heard at the bedside. On exam he does have scattered rhonchi throughout with bibasilar crackles Abdomen: Normoactive X4. Soft and nontender in all quadrants. Extremities: 2+ pitting edema of the bilateral lower extremities Neuro: Successfully somnolent difficult to arouse. Neurological exam limited Skin: No obvious skin lesions or rashes Psych: See above 1. Mixed respiratory failurehypoxemia and acute on chronic hypercapnia 2. Acute COVID-19 3. Altered mental statuspresumed infectious encephalopathy but may have a component of anoxic brain injury 4. Recent aspiration pneumonia 5. Acute on compensated CHF Chronic medical conditions: 1. Known aspiration with recurrent aspiration pneumonia 2. GERD 3. Mycobacterium Avium 4. Chronic anemia 5. Chronic hypoxic respiratory failure requiring 2 L of supplemental oxygen 6. NOLA requiring CPAP 7. Hypothyroidism 8. CKDstage III 9. HTN 10. CAD * Agree with treatment plan as outlined in H&P with few changes * Continue remdesivir (pending creatinine clearance remains >30). Currently his creatinine clearance is 63 * Decadron 6 mg IV daily * Neb treatments routinely * Once more awake and alert, will add mucolytic agents * Once patient more awake and alert, would add incentive spirometry * For now, trial BiPAP not necessarily for his hypoxemia (as his pulse ox is stable on 2.5 to 3 L of supplemental oxygen), but more so for his acute on chronic hypercapnia (which is mild) and uncompensated CHF with marginal hypotension * The positive pressure provided with BiPAP will help physically push the in terstitial fluid out of the lungs. We will continue Lasix pending his blood pressure will allow as he will have rebound pulmonary vascular congestion when taken off of BiPAP * Patient started on Unasyn given his recent aspiration pneumonia. Okay to continue this. Once more awake and alert would transition back to Augmentin * Patient is currently n.p.o. given his excessive somnolence/obtunded state and known history of aspiration. Staff should continue aspiration precautions. When more awake and alert, can initiate a pured diet with nectar thick as recommended by speech therapy during his last hospitalization * Would hold oral meds for now until his level of obtundedness improves * Patient is a DNI/DNR. I did discuss this with his caretakers and decision makers and it was discussed during his last hospitalization * Although patient seems to be relatively stable for the time being, I am concerned at his ultimate prognosis. Will watch closely * Patient's ESR and CRP are quite elevated but despite this, he does not meet criteria for tocilizumab or monoclonal antibody treatment as he is not requiring high flow/BiPAP from a hypoxemia standpoint * Plan of care to be discussed with Dr. Jo. Further orders as warranted.
[2021-09-18 16:15] LABS: Allen Test Pos (Pos); Base Excess ABG 3.3 mEq/L (-9-1.8); HCO3 ABG 30 mmol/L (19-24); Oxygen Saturation ABG 97.5 % (90-95); PCO2 ABG 56 mmHg (35-46); PO2 ABG 109 mmHg (80-95); pH ABG 7.34 (7.35-7.45)
--- NOTE | 2021-09-18 17:25 | Communication Note ---
Date of Service: September 18, 2021 Patient was reassessed and doing well/tolerating BiPAP Blood gas virtually unchanged and close to baseline. At this point, will maintain BiPAP as patient is tolerating it more so for positive pressure given acute on compensated CHF. He has received 1 dose of IV Lasix so far. Would prefer to continue to diurese while BiPAP remains in place. If removing it too quickly, will have rebound pulmonary edema. I did explain to staff that if he becomes intolerant/agitated to the BiPAP that it is okay to leave it off and transition to supplemental oxygen Patient still obtunded and not very conversive. In review of history, he does have a history of hyperammonemia. Will obtain an ammonia level and provide rectal lactulose if elevated. His oral meds remain on hold for now given his excessively somnolent state Patient currently on BiPAP not for hypoxemia but more so for positive pressure/CHF and acute hypercapnia. Again, if intolerant would be inclined to transition to supplemental oxygen but okay to leave in place for now. If remains stable, would transition to oxygen tomorrow
--- NOTE | 2021-09-18 17:46 | CT Scan Report ---
CT head/brain wo con CLINICAL HISTORY: 70 years-old Male with AMS. Acutely altered mental status TECHNIQUE: Multiple axial CT images of the head were obtained without contrast. A dose lowering tech nique was utilized adhering to the principles of ALARA. CT DOSE: 691.05 mGy.cm COMPARISON: Head CT 06/20/2021 FINDINGS: No motion degraded exam. Acute intracranial hemorrhage, midline shift, intracranial mass, hydrocephal us, territorial ischemia or abnormal extra-axial collection. Age-related involutional changes. White matter hypodensities suggestive of chronic microvascular ischemic disease. Cerebral vascular calcific ations. The calvarium is intact. Prior bilateral lens repair. Left nerve drusen. The paranasal sinuses, masto id air cells, and middle ear cavities are clear. IMPRESSION: Motion degraded exam. No acute intracranial abnormality. ACT 112: Negative or not required by law. The above report was generated using voice recognition software. It may contain grammatical, syntax o r spelling errors. Electronically signed by: Davidson Sandoval M.D. 09/18/2021 5:45 PM
--- NOTE | 2021-09-18 18:30 | Electrocardiogram Report ---
Test Reason : Blood Pressure : / mmHG Vent. Rate : 095 BPM Atrial Rate : 095 BPM P-R Int : 190 ms QRS Dur : 088 ms QT Int : 362 ms P-R-T Axes : 038 021 033 degrees QTc Int : 454 ms Poor data quality, interpretation may be adversely affected Normal sinus rhythm Normal ECG When compared with ECG of 02-SEP-2021 14:45, No significant change was found Confirmed by Hugo Fuentes ([id number]) on 09/18/2021 6:30:27 PM Referred By: REFERRED SELF Confirmed By:Hugo Fuentes
[2021-09-18] MEDS: BUDESONIDE 0.5 MG/2 ML VIAL (PULMICORT) NEB SCH (19:48)
[2021-09-18] MEDS: FORMOTEROL 20 MCG/2 ML VIAL NEB SCH (19:50)
[2021-09-18] MEDS: ASPIRIN 81 MG ECTAB PO SCH (20:24)
[2021-09-18] MEDS: TAMSULOSIN HCL 0.4 MG CAP PO SCH (20:25)
[2021-09-18] MEDS: FINASTERIDE 5 MG TAB PO SCH (20:25)
[2021-09-18] MEDS: FLUTICASONE FUROATE 100MCG 14 PUFFS/INHALER INH SCH (20:27)
[2021-09-18] MEDS ORDERED: cloZAPine 100 MG TAB PO SCH (21:00)
[2021-09-18] MEDS ORDERED: ATORVASTATIN 40 MG TAB PO SCH (21:00)
--- NOTE | 2021-09-18 21:09 | Billing Data ---
Date of Service September 18, 2021 Coding Level of Care Code 14153 Initial Inpt Care Lvl 3
[2021-09-18] MEDS: FAMOTIDINE 20 MG in SYRINGE 3 ML IV SCH (21:14)
[2021-09-19] MEDS: AMPICILLIN/SULBACTAM SOD 3,000 MG in 0.9 % SODIUM CHLORIDE 100 ML IV SCH ×4 (02:07→20:42)
[2021-09-19] MEDS: LEVOTHYROXINE SODIUM 75 MCG TABLET PO SCH (06:39)
[2021-09-19 07:08] LABS: Albumin Level 2.1 gm/dl (3.4-5.0); BUN Creatinine Ratio 32.7 (10-20); Calcium 8.9 mg/dl (8.5-10.1); Creatinine Clr Calc Pharmacy 75.2 ml/min; Est GFR (African American) 89.2 ml/min; Magnesium 2.3 mg/dl (1.8-2.4); Potassium 4.7 mmol/L (3.5-5.1)
[2021-09-19 07:10] LABS: Albumin Globulin Ratio 0.4 (0.9-2); Bilirubin,Total 0.4 mg/dl (0.2-1); C Reactive Protein 7.84 mg/dl (0-0.29); Globulin 4.9 gm/dl (2.5-4.0)
[2021-09-19] MEDS: ALBUT/IPRATROP 3MG/0.5MG NEB 3 ML VIAL NEB SCH ×4 (07:21→19:32)
[2021-09-19] MEDS: FORMOTEROL 20 MCG/2 ML VIAL NEB SCH ×2 (07:21→19:32)
[2021-09-19] MEDS: BUDESONIDE 0.5 MG/2 ML VIAL (PULMICORT) NEB SCH ×2 (07:21→19:32)
[2021-09-19] MEDS: FAMOTIDINE 20 MG in SYRINGE 3 ML IV SCH ×2 (08:03→20:43)
[2021-09-19] MEDS: ENOXAPARIN INJ 40 MG/0.4 ML SYR SQ SCH ×2 (08:04→20:43)
[2021-09-19] MEDS: dexAMETHasone 6 MG in SYRINGE 0 ML IV SCH (08:05)
[2021-09-19] MEDS: DIVALPROEX DELAY RELEASE 250 MG TABEC PO SCH ×2 (08:06→20:52)
[2021-09-19] MEDS: DIVALPROEX DELAY RELEASE 125 MG TABEC PO SCH ×2 (08:06→20:51)
[2021-09-19] MEDS: FUROSEMIDE 40 MG/4 ML VIAL IV SCH (08:49)
--- NOTE | 2021-09-19 10:48 | Hospitalist Progress Note ---
Date of Service September 19, 2021 Assessment & Plan (1) Dysphagia: Plan: 70-year-old male coming from [employer] [place] and history of prior Mycobacterium avium infection, chronic hypoxic respiratory failure in setting of interstitial lung disease on baseline 2 L nasal cannula, anemia, seizure disorder, chronic HFpEF, hypothyroidism, stage III CKD, history of nephrolithiasis, hypertension, GERD, CAD, recent hospitalization for aspiration pneumonia who presented to [facility] after staff at [facility] found him saturating only 60-70% on his normal O2 requirement. Aspiration pneumonia as diagnosed last admission - had received a few days of IV antibiotics and then switched to PO antibiotics at patient's request to not be on IV treatment - high risk for re-aspiration; went home with knowledge and plan of permissive aspiration with food and liquids - unasyn for coverage continues Constipation Patient with history of functional small bowel obstruction, no previous abdominal surgeries No evidence of small bowel obstruction or ileus on CT abdomen pelvis Scheduled MiraLAX and senna. Sleep apnea May use home CPAP Stage III CKD Baseline creatinine approximately 1.2 --seems to be at baseline Continue to monitor (2) COVID-19: Plan: COVID19 Pneumonia in the setting of Chronic Hypoxic Respiratory Failure and recent aspiration pneumonia - COVID19 positive - CXR showing diffuse BL lung changes consistent with COVID19 Pneumonia - possible underlying re-aspiration pneumonia; speech evaluation last admission found aspirating events with most foods and liquids - remdesivir, decadron, o2 support as needed - duonebs, chest pt, mucinex, for pulmonary toilet -crp 7.84 (3) NOLA (obstructive sleep apnea): Plan: uses CPAP at night and supportive during day (4) Chronic respiratory failure with hypoxia: Plan: Interstitial Lung Disease On record review, patient has previously followed with [place]. Wild [place] [facility] [place] Asmanex, duo nebs scheduled as above (5) Paranoid schizophrenia: Plan: controlled with clozaril (6) CAD in [place] artery: Plan: reamains on aspirin and atorvastatin (7) Seizure disorder: Plan: on depakote (8) Hypertension: Plan: controlled with metoprolol continue Plan: Palliative Care Discussion DNR/DNI - per discharge summary, was to have POLST filled out with PCP, but no record of this being done in chart - discussed situation with legal guardian Sacha on the phone this morning during admission as Nicholas [place] had not told them about Mahesh being sent to the hospital-- family has an aim of comfort for Mahesh but wants to give him a shot at treatment with IV remdesivir, dexamethasone etc. - discussed that given his pulmonary history, recent aspiration pneumonia, and current respiratory distress, prognosis is poor, and recovery would likely be extensive - confirmed patient is DNR/DNI - re-consulted palliative care, appreciate assistance with ongoing discussions of goals of care; suggested to guardian a family meeting with palliative care and attending provider would help to keep everyone on the same page Admission and Anticipated Discharge Date Admission Date: September 18, 2021 Subjective Patient is awake alert and conversant. He still on oxygen mask at 8 L. He has no coughing may be mild respiratory distress he has no other complaints or problems Review of Systems Review of Systems: Moderate respiratory distress and fatigue no headache, no visual changes no speech or swallowing issues no chest pain, pressure or palpitations Shortness of breath but no observed coughing no abdominal pain, nausea or vomiting, diarrhea or constipation no dysuria, hematuria or frequency no focal joint pain or swelling no back pain, CVA tenderness or radicular pain no bruising, bleeding or rashes no focal signs of weakness or numbness or altered sensation no complaints of anxiety or depression.. Physical Exam Physical Exam: The patient appeared chronically ill but stable Vital signs as documented. Head exam is normocephalic atraumatic Neck is without JVD, thyromegaly, or carotid bruits. Lungs are letter upper load expiratory wheezes plus basilar crackles Cardiac exam, Rhythm is regular.. No murmurs, rubs or gallops. Abdominal exam reveals normal bowel sounds, soft non tender, no masses Extremities are trace edematous and both pedal pulses are present Neurologic exam is alert and oriented, x2, no focal loss of strength or sensation Skin is without bruises or rashes Psychologically is with concerns for baseline mental illness Results & Data Results & Data ([facility]) Vital Signs (Past 12 Hours) Vital Signs Pulse Pulse Resp BP BP BP Pulse Ox 09/19/21 07:21 99 H 22 90 09/19/21 06:00 91 H 20 114/56 L 98 09/19/21 03:40 95 H 22 117/59 L 97 09/19/21 03:34 99 H 22 117/59 L 117/59 L 95 09/19/21 02:46 102 H 28 H 95 09/19/21 02:30 100 H 27 H 108/45 L 82 L 09/19/21 02:15 96 H 18 83 L 09/19/21 02:00 94 H 20 89 L 09/19/21 01:45 93 H 17 90 09/19/21 01:30 92 H 25 H 95 09/19/21 01:15 92 H 22 94 09/19/21 01:00 93 H 16 95 09/19/21 00:45 93 H 18 96 09/19/21 00:30 92 H 17 96 09/19/21 00:15 93 H 18 95 09/19/21 00:00 91 H 24 100/51 L 96 09/18/21 23:45 92 H 17 97 09/18/21 23:30 92 H 17 95 09/18/21 23:15 92 H 15 97 09/18/21 23:00 92 H 15 95/67 L 97 09/18/21 22:45 94 H 26 H 96 PG Care Time/CCT Total # of Minutes Spent Total Time Spent with Patient: Total time spent is greater than 50% in coordination of care (as documented) at patient's floor/unit and/or counseling patient: Coding Level of Care Code 13481 Subseq Hosp Care Lvl 3 Diagnoses Dysphagia R13.10 NOLA (obstructive sleep apnea) G47.33 Chronic respiratory failure with hypoxia J96.11 Paranoid schizophrenia F20.0 CAD in [place] artery I25.10 Seizure disorder G40.909 Hypertension I10 Hypertension type: essential hypertension COVID-19 U07.1 (1) Hypertension Hypertension type: essential hypertension Qualified Code(s): I10 - Essential (primary) hypertension
[2021-09-19] MEDS: SODIUM CHLORIDE 0.9% 10ML FLUSH IV SCH ×2 (11:39→13:56)
[2021-09-19] MEDS: REMDESIVIR 100 MG in SODIUM CHLORIDE 0.9% 230 ML IV SCH (11:40)
[2021-09-20] MEDS: AMPICILLIN/SULBACTAM SOD 3,000 MG in 0.9 % SODIUM CHLORIDE 100 ML IV SCH ×4 (01:30→20:05)
[2021-09-20] MEDS: BUDESONIDE 0.5 MG/2 ML VIAL (PULMICORT) NEB SCH ×2 (06:42→19:51)
[2021-09-20] MEDS: FORMOTEROL 20 MCG/2 ML VIAL NEB SCH ×2 (06:43→19:52)
[2021-09-20] MEDS: ALBUT/IPRATROP 3MG/0.5MG NEB 3 ML VIAL NEB SCH ×4 (06:43→19:52)
[2021-09-20] MEDS: FAMOTIDINE 20 MG in SYRINGE 3 ML IV SCH ×2 (08:52→20:51)
[2021-09-20] MEDS: dexAMETHasone 6 MG in SYRINGE 0 ML IV SCH (08:52)
[2021-09-20] MEDS: ENOXAPARIN INJ 40 MG/0.4 ML SYR SQ SCH ×2 (08:53→19:56)
[2021-09-20] MEDS: DIVALPROEX DELAY RELEASE 125 MG TABEC PO SCH ×2 (08:54→19:58)
[2021-09-20] MEDS: DIVALPROEX DELAY RELEASE 250 MG TABEC PO SCH ×2 (08:54→19:57)
[2021-09-20] MEDS: FUROSEMIDE 40 MG/4 ML VIAL IV SCH (09:05)
[2021-09-20] MEDS: SODIUM CHLORIDE 0.9% 10ML FLUSH IV SCH ×2 (09:29→13:21)
[2021-09-20] MEDS: REMDESIVIR 100 MG in SODIUM CHLORIDE 0.9% 230 ML IV SCH (11:31)
--- NOTE | 2021-09-20 12:17 | Hospitalist Progress Note ---
Date of Service September 20, 2021 Assessment & Plan (1) Acute and chronic respiratory failure with hypoxia: Plan: acute component - moderate COVID-19 pneumonia; cannot exclude concomitant bacterial pneumonia. Cont NC O2. Patient is relatively early in his illness - at high risk of disease progression. Chronic component - ILD. (2) Pneumonia due to COVID-19 virus: Plan: moderate thus far, but at risk of significant disease progression given his chronic resp failure due to ILD. day #3 of Remdesivir. day #3 of dexamethasone. cont NC O2, keep sats 90-92%. supportive care. tessalon for cough. diurese. nebs. (3) Metabolic encephalopathy: Plan: suspect confusion due to #2 supportive care (4) Chronic diastolic CHF (congestive heart failure): Plan: may have some element of acute/chronic CHF diurese with lasix daily (5) Hypothyroidism: Plan: TSH this month wnl cont synthroid (6) Interstitial lung disease: Plan: with resulting chronic hypoxic resp failure cont home inhalers, O2, etc (7) Obstructive sleep apnea: Plan: NC O2 (8) BPH (benign prostatic hyperplasia): Plan: craft in place cont finasteride cont flomax (9) Paranoid schizophrenia: Plan: hold clozapine for now (10) DVT prophylaxis: Plan: lovenox BID Plan: updated the pt's legal guardian - Gema Barrera - early this evening discussed plan of care, poor prognosis given his underlying chronic lung disease, etc we discussed code status - legal guardian reported that she had discussion with family and all parties do NOT want intubation/mech ventilation/CPR. Admission and Anticipated Discharge Date Admission Date: September 18, 2021 Subjective tele overnight wnl during the visit the patient had a severe cough he was awake but talking nonsensically when asked if he had any pain he would start talking about a different topic thus, unable to obtain any meaningful history or ROS Review of Systems Review of Systems: Unobtainable due to cognitive status Physical Exam Physical Exam: gen - dysmorphic appearing, severe cough, awake but not oriented neck - no obvious JVD mouth - MMM heart - RRR, s1 s2 lungs - diffuse crackles with wheezes b/l abd - soft NT ND BS+ ext - pulses 2+ b/l Results & Data Results & Data ([facility]) Vital Signs (Past 12 Hours) Vital Signs Temp Pulse Pulse Resp BP Pulse Ox Pulse Ox 09/20/21 11:51 103 H 20 93 09/20/21 11:37 97 09/20/21 11:13 36.5 C 95 H 18 151/57 H 97 09/20/21 10:19 96 09/20/21 07:43 36.7 C 105 H 28 H 130/75 91 09/20/21 06:43 91 H 22 96 09/20/21 03:28 99 H 29 H 90 09/20/21 03:09 36.9 C 112 H 18 133/73 90 Laboratory Results Laboratory Results - last 24 hr 09/20/21 09/20/21 12:52 12:52 WBC 10.33 RBC 3.23 L Hgb 9.3 L Hct 31.5 L MCV 97.5 MCH 28.8 MCHC 29.5 L RDW Std Deviation 51.6 H RDW Coeff of Nakia 14.5 Plt Count 163 MPV 9.5 Neutrophils % (Manual) 81.0 Lymphocytes % (Manual) 4.3 Monocytes % (Manual) 6.1 Metamyelocytes % (Man) 4.3 Myelocytes % (Man) 4.3 Neutrophils # (Manual) 8.37 H Total Absolute Neuts 8.37 H Lymphocytes # (Manual) 0.44 L Total Abs Lymphocytes 0.44 L Monocytes # (Manual) 0.63 H Metamyelocytes # (Man) 0.44 H Myelocytes # (Manual) 0.44 H Sodium 139 Potassium 4.6 Chloride 102 Carbon Dioxide 34 H Anion Gap 3.0 BUN 32 H Creatinine 0.99 Est Cr Clr Drug Dosing 76.0 Est GFR ( Amer) 90.3 Est GFR (Non-Af Amer) 77.9 BUN/Creatinine Ratio 32.2 H Glucose 139 H Calcium 9.0 Magnesium 2.0 AST 25 ALT 12 C-Reactive Protein 3.50 H PG Care Time/CCT Total # of Minutes Spent Total Time Spent with Patient: Total time spent is greater than 50% in coordination of care (as documented) at patient's floor/unit and/or counseling patient: Coding Level of Care Code 23112 Subseq Hosp Care Lvl 2 Diagnoses Acute and chronic respiratory failure with hypoxia J96.21 Pneumonia due to COVID-19 virus U07.1; J12.82 Metabolic encephalopathy G93.41 Chronic diastolic CHF (congestive heart failure) I50.32 Hypothyroidism E03.9 Hypothyroidism type: acquired Interstitial lung disease J84.9 Obstructive sleep apnea G47.33 BPH (benign prostatic hyperplasia) N40.0 Lower urinary tract symptom presence: symptoms absent Paranoid schizophrenia F20.0 DVT prophylaxis Z29.9 (1) Hypothyroidism Hypothyroidism type: acquired Qualified Code(s): E03.9 - Hypothyroidism, unspecified (2) BPH (benign prostatic hyperplasia) Lower urinary tract symptom presence: symptoms absent Qualified Code(s): N40.0 - Benign prostatic hyperplasia without lower urinary tract symptoms
[2021-09-20 13:13] LABS: Hematocrit (blood only) 31.5 % (42-52); Hemoglobin 9.3 g/dL (14.0-18.0); Mean Corpuscular Hemoglobin 28.8 pg (25-34); Mean Corpuscular Hgb Conc 29.5 g/dL (32-36); Mean Corpuscular Volume 97.5 fL (80-100); Mean Platelet Volume 9.5 fL (7.4-10.4); Platelet Count 163 K/uL (130-400); RDW Coefficient of Variation 14.5 % (11.5-14.5); RDW Standard Deviation 51.6 fL (36.4-46.3); Red Blood Count 3.23 M/uL (4.7-6.1); White Blood Count 10.33 K/uL (4.8-10.8)
[2021-09-20 13:28] LABS: ALC (manual) 0.44 K/uL (1.2-3.4); ANC (manual) 8.37 K/uL (1.4-6.5); Lymphocytes # (manual) 0.44 K/uL (1.2-3.4); Lymphocytes % (manual) 4.3 %; Metamyelocytes # (manual) 0.44 K/uL (0-0); Metamyelocytes % (manual) 4.3 %; Monocytes # (manual) 0.63 K/uL (0.11-0.59); Monocytes % (manual) 6.1 %; Myelocytes # (manual) 0.44 K/uL (0-0); Myelocytes % (manual) 4.3 %; Neutrophils # (manual) 8.37 K/uL (1.4-6.5)
[2021-09-20 13:31] LABS: BUN Creatinine Ratio 32.2 (10-20); C Reactive Protein 3.5 mg/dl (0-0.29); Est GFR (African American) 90.3 ml/min; Est GFR (Non-African American) 77.9 ml/min; Potassium 4.6 mmol/L (3.5-5.1)
[2021-09-20] MEDS: BENZONATATE 100 MG CAPSULE PO SCH ×2 (14:03→19:57)
[2021-09-20] MEDS: ASPIRIN 81 MG ECTAB PO SCH (19:56)
[2021-09-20] MEDS: FLUTICASONE FUROATE 100MCG 14 PUFFS/INHALER INH SCH (19:58)
[2021-09-20] MEDS: FINASTERIDE 5 MG TAB PO SCH (19:58)
[2021-09-20] MEDS: TAMSULOSIN HCL 0.4 MG CAP PO SCH (19:59)
--- NOTE | 2021-09-20 22:14 | Death Pronouncement Note ---
Date of Service September 20, 2021 Pronouncement Note Admission Date Admission Date: September 18, 2021 Date and Time of Date of : 09/20/21 Time of : 22:05 Contributing Factors (1) COVID-19: (2) Dysphagia: (3) NOLA (obstructive sleep apnea): (4) Chronic respiratory failure with hypoxia: (5) Paranoid schizophrenia: (6) CAD in [place] artery: (7) Seizure disorder: (8) Hypertension: (9) Third degree heart block: Hospital Course Hospital Course: 70-year-old male coming from [facility] and history of prior Mycobacterium avium infection, chronic hypoxic respiratory failure in setting of interstitial lung disease on baseline 2 L nasal cannula, anemia, seizure disorder, chronic HFpEF, hypothyroidism, stage III CKD, history of nephrolithiasis, hypertension, GERD, CAD, recent hospitalization for aspiration pneumonia who presented to [facility] after staff at [facility] found him saturating only 60-70% on his normal O2 requirement. Aspiration pneumonia as diagnosed last admission - had received a few days of IV antibiotics and then switched to PO antibiotics at patient's request to not be on IV treatment - high risk for re-aspiration; went home with knowledge and plan of permissive aspiration with food and liquids - unasyn for coverage continues Constipation Patient with history of functional small bowel obstruction, no previous abdominal surgeries No evidence of small bowel obstruction or ileus on CT abdomen pelvis Scheduled MiraLAX and senna. Sleep apnea May use home CPAP Stage III CKD Baseline creatinine approximately 1.2 --seems to be at baseline Continue to monitor (2) COVID-19: Plan: COVID19 Pneumonia in the setting of Chronic Hypoxic Respiratory Failure and recent aspiration pneumonia - COVID19 positive - CXR showing diffuse BL lung changes consistent with COVID19 Pneumonia - possible underlying re-aspiration pneumonia; speech evaluation last admission found aspirating events with most foods and liquids - remdesivir, decadron, o2 support as needed - duonebs, chest pt, mucinex, for pulmonary toilet -crp 7.84 (3) NOLA (obstructive sleep apnea): Plan: uses CPAP at night and supportive during day (4) Chronic respiratory failure with hypoxia: Plan: Interstitial Lung Disease On record review, patient has previously [place] [facility] [place] Asmanex, duo nebs scheduled as above (5) Paranoid schizophrenia: Plan: controlled with clozaril (6) CAD in [place] artery: Plan: reamains on aspirin and atorvastatin (7) Seizure disorder: Plan: on depakote (8) Hypertension: Plan: controlled with metoprolol continue Plan: Palliative Care Discussion DNR/DNI - per discharge summary, was to have POLST filled out with PCP, but no record of this being done in chart - discussed situation with legal guardian Sacha on the phone this morning during admission as Nicholas Maier had not told them about Mahesh being sent to the hospital-- family has an aim of comfort for Mahesh but wants to give him a shot at treatment with IV remdesivir, dexamethasone etc. - discussed that given his pulmonary history, recent aspiration pneumonia, and current respiratory distress, prognosis is poor, and recovery would likely be extensive - confirmed patient is DNR/DNI - re-consulted palliative care, appreciate assistance with ongoing discussions of goals of care; suggested to guardian a family meeting with palliative care and attending provider would help to keep everyone on the same page Summary Additional details: Was called to patient's bedside around 9:53PM for concerns of unresponsiveness and weak pulse. Upon presentation patient was on bipap and pulse was not palpable at that time. EKG taken and telemetry strip showed third degree heart block. Patient had external pacemaker placed and no pulse was palpable. As patient was DNR/DNI no code was activated. Patient was pronounced at 10:05PM for lack of pulse, respirations, heart sounds, pupils fixed and dilated, and negative corneal reflex or response to sternal rub. Legal guardian was contacted. Additional Data Confirmation of : no pulse, no respirations, no heart sounds, pupils fixed and dilated and other (negative corneal reflex ) Family: contacted (contacted legal guardian who will contact family ) Attending/PCP notified?: Yes Attending physician: Kirill Stone Was code activated?: No Autopsy requested?: No credit union field examiner notified?: No Organ bank notified?: No Resident Activity Tracking Resident Involvement: Resident Care Provided and Official Greeter Coverage Note Care Provided: Adult Hospital Medicine
--- NOTE | 2021-09-21 08:50 | Discharge Summary ---
Date of Service September 21, 2021 Admission HPI Per Admitting Provider Patient is a 70-year-old male with past medical history of recent aspiration pneumonia, cavitary lesions of the lung, chronic hypoxemic respiratory failure, CKD stage III, dysphagia, interstitial lung disease on 3 L nasal cannula, NOLA, seizure disorder who was recently discharged from [facility] on 1112 after treatment of an aspiration pneumonia. He was discharged back to the [facility] where he resides on an oral regimen of antibiotics as the patient did not want to be on IV antibiotics. Speech therapy had evaluated him during his hospitalization and noted that he was aspirating on most diets and would essentially have permissive aspiration. He presented to the emergency department early this morning from [facility] after workers there found him to be hypoxic to the 60 and 70% while on his baseline nasal cannula. EMS was called he was transferred to the emergency department. The emergency department he tested positive for COVID-19. On examination he is rather somnolent but arousable. He states that he started feeling ill a couple days ago. He states that he feels about as bad as he did on day of discharge from the hospital a week ago. States that his stomach is also been hurting last couple of days. He denies any nausea or vomiting. He is coughing profusely in the room. Discharge Data Allergies Allergy/AdvReac Type Severity Reaction Status Date / Time diltiazem Allergy Intermediate rash and Verified 09/02/21 16:53 edema fentanyl AdvReac Severe Confusion Verified 09/02/21 16:53 Consultations 09/18/21 04:58 ED Decision to Admit Stat 09/18/21 05:54 Consult Palliative Care Routine Ordered Studies 09/18/21 15:01 CT head/brain wo con Urgent Hospital Course (1) Cardiac arrest: (2) Pulseless electrical activity: (3) Acute and chronic respiratory failure with hypoxia: acute component - moderate COVID-19 pneumonia; cannot exclude concomitant bacterial pneumonia. Cont NC O2. Patient is relatively early in his illness - at high risk of disease progression. Chronic component - ILD. (4) Pneumonia due to COVID-19 virus: moderate thus far, but at risk of significant disease progression given his chronic resp failure due to ILD. day #3 of Remdesivir. day #3 of dexamethasone. cont NC O2, keep sats 90-92%. supportive care. tessalon for cough. diurese. nebs. (5) Metabolic encephalopathy: suspect confusion due to #2 supportive care (6) Chronic diastolic CHF (congestive heart failure): may have some element of acute/chronic CHF diurese with lasix daily (7) Hypothyroidism: TSH this month wnl cont synthroid (8) Interstitial lung disease: with resulting chronic hypoxic resp failure cont home inhalers, O2, etc (9) Obstructive sleep apnea: NC O2 (10) BPH (benign prostatic hyperplasia): craft in place cont finasteride cont flomax (11) Paranoid schizophrenia: hold clozapine for now (12) DVT prophylaxis: lovenox BID updated the pt's legal guardian - Gema Barrera - early this evening discussed plan of care, poor prognosis given his underlying chronic lung disease, etc we discussed code status - legal guardian reported that she had discussion with family and all parties do NOT want intubation/mech ventilation/CPR. Discharge Plan Discharge Items Patient Disposition: Discharge Diagnosis: Addtl Attending Provider Instructions: See summary Other Date/Time: 09/20/21 22:05 Coding Diagnoses Acute and chronic respiratory failure with hypoxia J96.21 Pneumonia due to COVID-19 virus U07.1; J12.82 Metabolic encephalopathy G93.41 Chronic diastolic CHF (congestive heart failure) I50.32 Hypothyroidism E03.9 Hypothyroidism type: acquired Interstitial lung disease J84.9 Obstructive sleep apnea G47.33 BPH (benign prostatic hyperplasia) N40.0 Lower urinary tract symptom presence: symptoms absent Paranoid schizophrenia F20.0 DVT prophylaxis Z29.9 Cardiac arrest I46.9 Pulseless electrical activity I46.9
[2021-09-21] MEDS ORDERED: CHOLECALCIFEROL 1,000 UNITS 25 MCG TAB PO SCH (09:00)
--- NOTE | 2021-09-22 06:27 | Electrocardiogram Report ---
Test Reason : Blood Pressure : / mmHG Vent. Rate : 000 BPM Atrial Rate : 033 BPM P-R Int : 122 ms QRS Dur : 024 ms QT Int : 282 ms P-R-T Axes : 230 000 230 degrees QTc Int : 000 ms Marked sinus bradycardia with complete heart block and no evidence of ventricular activity Abnormal ECG When compared with ECG of 18-SEP-2021 03:08, There is no QRS complex/ventricular activity on current ECG Sinus is now with marked bradycardia and complete heart block Confirmed by New Lara ([id number]) on 09/22/2021 6:27:01 AM Referred By: REFERRED SELF Confirmed By:New Lara
== END 2021-09-20 22:05 | disposition expired | DRG 177 ==
LOC: ED 03:01 → SUATTDRO 05:39 → EDINP 05:39 → 2E 07:02 → 2S 09-20 03:22